=== PATIENT | female | born 1970 | race Caucasian/White ===

== ENCOUNTER 2018-04-03 17:56 | Emergency (ER) | payer MEDICAID, SELFPAY ==
[2018-04-03 17:56] VITALS: BP 130/95; PULSE 97; RESP 20; TEMP 36.2; O2SAT 98; BMI 19.8
--- NOTE | 2018-04-03 18:11 | EKG12_ITS ---
Test Reason : COUGH Blood Pressure : / mmHG Vent. Rate : 090 BPM Atrial Rate : 090 BPM P-R Int : 116 ms QRS Dur : 084 ms QT Int : 356 ms P-R-T Axes : 046 035 043 degrees QTc Int : 435 ms Normal sinus rhythm Normal ECG Confirmed by ROSE HICKMAN, BARNEY ([id number]), scientific publications editor MATEO SANTIAGO ([id number]) on 04/06/2018 1:22:34 PM Referred By: LATRICE Confirmed By:BARNEY ROSE MD
[2018-04-03 18:22] VITALS: O2SAT 100
[2018-04-03 18:25] VITALS: PULSE 82; RESP 10; O2SAT 99
[2018-04-03] MEDS: 0.9% Normal Saline 1,000 ML 999 ML IV (18:30)
[2018-04-03 18:38] LABS: Absolute Lymphocyte Count 3.17 X10^3/ul (0.83-4.51); Absolute Neutrophil Count 6.4 X10^3/uL (2.0-7.7); Basophil# 0.04 X10^3/uL; Basophil% 0.4 % (0-1); Eosinophil# 0.11 X10^3/uL; Hematocrit 39.6 % (37-47); Hemoglobin 13.1 g/dl (12.0-15.0); Lymphocyte # 3.17 X10^3/ul (4.0); Lymphocyte % 29.8 % (19-41); Mean Corp Hgb Conc 33.1 g/gl (32-36); Mean Corpuscular Hgb 30.8 pg (27.0-32.0); Mean Corpuscular Volume 93.2 fL (81-99); Mean Platelet Vol. 9.6 fl (6.2-12.0); Monocyte# 0.91 X10^3/uL; Monocyte% 8.6 % (0-10); Neutrophil # 6.37 X10^3/uL (2.7-7.7); Platelet Count 369 K/mm3 (150-450); RBC Distribution Width CV 12.1 % (11.6-14.6); RBC Distribution Width SD 40.9 fl (35.1-43.9); Red Blood Count 4.25 M/mm3 (4.2-5.4); White Blood Count 10.6 K/mm3 (4.4-11.0)
--- NOTE | 2018-04-03 18:46 | RAD_ITS ---
STUDY: X-RAY CHEST REASON FOR EXAM: Female, 47 years old. Cough TECHNIQUE: Frontal and lateral views of the chest COMPARISON: None. FINDINGS: The lungs are clear. There are no pleural effusions. There is no pneumothorax. The heart is normal in size. The visualized osseous structures are within normal limits. RAD/Chest PA and Lateral IMPRESSION: No acute thoracic pathology. Electronically Signed: Bradford Crowder, at 19:12 EDT Tel , Service support ,
[2018-04-03 18:48] LABS: POSITIVE COUNT NO; POSITIVE DIFFERENTIAL NO; POSITIVE MORPHOLOGY NO
[2018-04-03 18:55] LABS: Anion Gap 9 (5-15); BUN 14 mg/dL (7-18); BUN/Creat Ratio 18.4 RATIO (10-20); Calcium,Total 8.9 mg/dL (8.5-10.1); Chloride 101 mmol/L (98-107); Creatinine, Serum 0.76 mg/dL (0.55-1.02); EST Glomerular Filtration Rate 87 mL/min (>60); Est Glom Filt Rate - Afr Amer 105 mL/min (>60); Estimated Creatinine Clearance 87.02 ml/min; Glucose 86 mg/dL (74-106); Potassium 4.3 mmol/L (3.5-5.1); Sodium Level 138 mmol/L (136-145)
--- NOTE | 2018-04-03 19:37 | ED.VISSUMM ---
- ER Visit Summary Date of Service: 04/03/18 Chief Complaint: Cough History of Present Illness: The patient is a 47 F with no local primary care physician. She reports she has a cough began 3 weeks ago. Is nonproductive. She had a fever to 101.7?. She has sore throat is 4-10 severity. She lost her voice at the same time. She reports that she has had constant chest pain for the past 2 weeks. She describes this as a pressure. It is 7 out of 10 at worst and 4 out of 10 currently. Is worsened with walking. Is relieved with rest. She reports she is moderately short of breath. States this is much worse when she walks. She has been wheezing. Patient reports that she has been seen in the urgent care twice. She is placed on a Ventolin inhaler, 40 g of prednisone a day for the past week, and a Z-Ermias which she is finishing today and has not had any relief. Patient reports that she has a history of lupus and has had a vertebral dissection in 2013. She is also had an [place] which required a cath and angioplasty 2 years ago. Currently she is on Plaquenil and prednisone at baseline. She does not have a local nutrition intern as she just moved back from [place]. Physical Examination: Vitals: Stable. Afebrile. General: Well-nourished and well-developed. Head: Normocephalic atraumatic. Neck: Supple, no lymphadenopathy. No JVD. Nontender. Cardiovascular: Regular rate and rhythm. No murmurs. Respiratory: No respiratory distress. Clear to auscultation bilaterally. Abdominal: Soft, nontender, nondistended, normal bowel sounds. No guarding, rebound, or peritoneal signs. Back: Nontender. Extremities: Nontender, no edema. Skin: Normal color, no rash. Neurologic: Alert and oriented ?3. Cranial nerves II through XII are intact. Normal strength and sensation. Psych: Normal affect. Test Results: EKG is sinus at 90 with no acute changes. Troponins negative. Chem-7 is normal. CBC is normal. Chest x-ray is normal. Emergency Department Course and Treatment: Patient is resting comfortably without complaint. Treatment Plan: The patient will be discharged with instructions to follow-up with Dr. Ariza for further evaluation of possible pulmonary involvement with her lupus. She is also instructed follow-up . Finally she saw Dr. Patel when she did live here and is instructed to follow-up with him in 3-5 days if not improving. Return to the emergency department for any worsening symptoms. Disposition: To home in improved and stable condition. Impression: 1. URI. 2. Systemic lupus erythematosus. This note was generated with [employer] dictation software. It may contain incorrect words, spelling, and punctuation that were not noted in review of the chart prior to signing ED Disposition - Plan for ED Patient: Disposition: Home or Assisted Living Chief Complaint: Cough Instructions: ED Upper Resp Infec No Abx Tx Referrals: Raghavendra Patel MD [NON-STAFF] - 1 Week if not improving Elroy Ariza MD [STAFF PHYSICIAN] - As Needed Selene Garcia MD [STAFF PHYSICIAN] - As soon as possible
--- NOTE | 2018-04-03 19:49 | ED.DCSUM_ITS ---
- ER Visit Summary Date of Service: 04/03/18 Chief Complaint: Cough History of Present Illness: The patient is a 47 F with no local primary care physician. She reports she has a cough began 3 weeks ago. Is nonproductive. She had a fever to 101.7?. She has sore throat is 4-10 severity. She lost her voice at the same time. She reports that she has had constant chest pain for the past 2 weeks. She describes this as a pressure. It is 7 out of 10 at worst and 4 out of 10 currently. Is worsened with walking. Is relieved with rest. She reports she is moderately short of breath. States this is much worse when she walks. She has been wheezing. Patient reports that she has been seen in the urgent care twice. She is placed on a Ventolin inhaler, 40 g of prednisone a day for the past week, and a Z-Ermias which she is finishing today and has not had any relief. Patient reports that she has a history of lupus and has had a vertebral dissection in 2013. She is also had an CT which required a cath and angioplasty 2 years ago. Currently she is on Plaquenil and prednisone at baseline. She does not have a local facility practice specialist as she just moved back from [place]. Physical Examination: Vitals: Stable. Afebrile. General: Well-nourished and well-developed. Head: Normocephalic atraumatic. Neck: Supple, no lymphadenopathy. No JVD. Nontender. Cardiovascular: Regular rate and rhythm. No murmurs. Respiratory: No respiratory distress. Clear to auscultation bilaterally. Abdominal: Soft, nontender, nondistended, normal bowel sounds. No guarding, rebound, or peritoneal signs. Back: Nontender. Extremities: Nontender, no edema. Skin: Normal color, no rash. Neurologic: Alert and oriented ?3. Cranial nerves II through XII are intact. Normal strength and sensation. Psych: Normal affect. Test Results: EKG is sinus at 90 with no acute changes. Troponins negative. Chem-7 is normal. CBC is normal. Chest x-ray is normal. Emergency Department Course and Treatment: Patient is resting comfortably without complaint. Treatment Plan: The patient will be discharged with instructions to follow-up with Dr. Ariza for further evaluation of possible pulmonary involvement with her lupus. She is also instructed follow-up . Finally she saw Dr. Patel when she did live here and is instructed to follow-up with him in 3-5 days if not improving. Return to the emergency department for any worsening symptoms. Disposition: To home in improved and stable condition. Impression: 1. URI. 2. Systemic lupus erythematosus. This note was generated with [employer] dictation software. It may contain incorrect words, spelling, and punctuation that were not noted in review of the chart prior to signing ED Disposition - Plan for ED Patient: Disposition: Home or Assisted Living Chief Complaint: Cough Instructions: ED Upper Resp Infec No Abx Tx Referrals: Raghavendra Patel MD [NON-STAFF] - 1 Week if not improving Elroy Ariza MD [STAFF PHYSICIAN] - As Needed Selene Garcia MD [STAFF PHYSICIAN] - As soon as possible
[2018-04-03 20:36] VITALS: BP 131/89; PULSE 97; RESP 23; O2SAT 97
== END 2018-04-03 20:38 | disposition home or self-care (01) ==
PROVIDERS: Emergency Provider Emergency Medicine
DX: J06.9 Acute upper respiratory infection, unspecified (principal); M32.9 Systemic lupus erythematosus, unspecified; I25.2 Old myocardial infarction
CPT/HCPCS: 71046; 80048; 84484; 85025; 93005; 99285; J7030

== ENCOUNTER 2018-04-13 06:52 | Emergency (ER) | payer MEDICAID, SELFPAY ==
[2018-04-13 06:53] VITALS: BP 134/96; PULSE 98; RESP 20; TEMP 36.9; O2SAT 98
--- NOTE | 2018-04-13 07:04 | CT_ITS ---
STUDY: CTA NECK WITH CONTRAST REASON FOR EXAM: Female, 47 years old. Severe headaches and neck pain. History of vertebral artery dissection. The patient also has a history of lupus. RADIATION DOSAGE (If Supplied By Facility): CTDIvol = ( 27.9 ) mGy, DLP = ( 1445.04 ) mGycm TECHNIQUE: CT angiography with multi-detector data acquisition was performed from the aortic arch to the skull base following intravenous administration of 100 ml of Isovue 370 contrast. MIP images were reconstructed from the axial data set. Post-processing of the angiographic images was performed, with multiplanar reformation and 3D reconstruction. Individualized dose optimization techniques were used for this CT. COMPARISON: None. FINDINGS: AORTIC ARCH: Normal visualized aortic arch. Normal origins of the brachiocephalic, left common carotid, and left subclavian arteries. RIGHT CAROTID ARTERIES: Normal right common carotid artery (CCA). Normal right common carotid bulb. Normal origin of the right internal carotid (ICA) artery without a hemodynamically significant stenosis. Normal visualized cervical portion of the right internal carotid artery. Normal origin of the right external carotid artery (ECA). LEFT CAROTID ARTERIES: Normal left common carotid artery (CCA). Normal left common carotid bulb. Normal origin of the left internal carotid (ICA) artery without a hemodynamically significant stenosis. Normal visualized cervical portion of the left internal carotid artery. Normal origin of the left external carotid artery (ECA). VERTEBRAL ARTERIES: The left vertebral artery is slightly larger than the right vertebral artery. CT/CTA Neck W/WO Contrast IMPRESSION: Normal bilateral cervical carotid and vertebral arteries. Electronically Signed: Perry Sorenson MD at 8:26 EDT Tel [phone], Service support ,
--- NOTE | 2018-04-13 07:04 | CT_ITS ---
STUDY: CTA OF THE BRAIN REASON FOR EXAM: Female, 47 years old. Severe headaches and cervical pain. History of bilateral vertebral artery dissection. The patient has a history of lupus. RADIATION DOSAGE (If Supplied By Facility): CTDIvol = ( 27.9 ) mGy, DLP = ( 1445.04 ) mGycm TECHNIQUE: CT angiography was performed with a multi-detector CT scanner. Data acquisition was obtained from the skull base through the vertex following intravenous administration of 100 ml of Isovue-370. MIP images were reconstructed from the axial data set. Post-processing of the angiographic images was performed, with multiplanar reformation and 3D reconstruction. Individualized dose optimization techniques were used for this CT. COMPARISON: None. FINDINGS: Normal bilateral petrous carotid arteries. Normal right cavernous carotid artery with a normal supraclinoid bifurcation. Normal left cavernous carotid artery with a normal supraclinoid bifurcation. Normal right A1 segments of the anterior cerebral artery. Normal left A1 segments of the anterior cerebral artery. Normal intact anterior communicating artery (ACOM). Normal bilateral A2 segments of the anterior cerebral arteries. Normal right M1 and M2 segments of the middle cerebral arteries, with a normal M1 bifurcation. Normal left M1 and M2 segments of the middle cerebral arteries, with a normal M1 bifurcation. Normal right posterior communicating artery (PCOM). Normal left posterior communicating artery (PCOM). Normal bilateral vertebral arteries. Normal basilar artery with a normal basilar bifurcation. The visualized bilateral superior cerebellar (SCA) arteries are normal. Normal bilateral P1, P2 and visualized P3 segments of the posterior cerebral arteries. There is no demonstrated aneurysm of the [place]. There is no demonstrated abnormality of the visualized brain. CT/CTA Head W/WO Contrast IMPRESSION: Normal [place] without a demonstrated aneurysm or hemodynamically significant stenosis. Electronically Signed: Perry Sorenson MD at 8:24 EDT Tel [phone], Service support ,
--- NOTE | 2018-04-13 07:24 | ED.VISSUMM ---
- ER Visit Summary Date of Service: 04/13/18 Chief Complaint: Neck pain and headache History of Present Illness: The patient is a 47 F who sees a primary care physician at [facility]. She has a history of lupus with prior vertebral dissections and [place] with angioplasty. Patient reports that 3 days ago she had the onset of a pain in the left side of her neck and left head that is similar to when she had a vertebral dissection. She describes it as a sharp pains 10 at 10 at worst 9 out of 10 currently. Is worsened by movement or coughing. Is relieved by nothing. She has had nausea without vomiting. She denies any photophobia. She reports that she has tingling in the left side of her jaw only. She denies any numbness or weakness in her extremities. She does report that she feels slightly off balance. She denies any vertigo. Patient reports that she has had a cough for approximately a month that is actually improving. It is nonproductive. She denies any fever, chills, chest pain, or shortness of breath. Physical Examination: Vitals: Stable. Afebrile. General: Well-nourished and well-developed. Head: Normocephalic atraumatic. Neck: Supple, no lymphadenopathy. No JVD. Nontender. Cardiovascular: Regular rate and rhythm. No murmurs. Respiratory: No respiratory distress. Clear to auscultation bilaterally. Abdominal: Soft, nontender, nondistended, normal bowel sounds. No guarding, rebound, or peritoneal signs. Back: Nontender. Extremities: Nontender, no edema. Skin: Normal color, no rash. Neurologic: Alert and oriented ?3. Cranial nerves II through XII are intact. Normal strength and sensation. Psych: Normal affect. Test Results: CT head is normal. CTA head shows normal [place]. CTA of the neck shows normal carotids and vertebral arteries bilaterally. CBC is normal. Chem-7 is more for chloride 108, BUN of 5, glucose 115. Coags are normal. CSF glucose is 58 and protein is 42. No red blood cells. 2 white blood cells. Emergency Department Course and Treatment: Patient had an IV placed. She was given a dose of morphine and Zofran IV. She had no relief of her pain with this. She was then given Toradol, Compazine, and Benadryl IV. I had a prolonged discussion with her about the possible serious causes of headaches and the possibility of a lumbar puncture. She does want this performed. She was consented and all questions were answered. Patient has had significant improvement after Toradol, Compazine, and Benadryl. She is resting comfortably and would like to go home. She was given a dose of dexamethasone IV in attempt to prevent a rebound headache. Treatment Plan: Patient will be discharged with instructions use Tylenol and/or ibuprofen. She is also given a prescription for Compazine. Instructed to follow-up with her primary care physician 1 to days if not improving. Return to the emergency department for any worsening symptoms. Disposition: To home in improved and stable condition. Impression: 1. Cephalgia. 2. Neck pain, uncertain cause. 3. Lumbar puncture by ED physician. Procedure note: The back was cleansed with Betadine. It was then anesthetized with 1% lidocaine without epinephrine. With the patient in a sitting position the L3-L4 disc space was entered on the first attempt. 4 mL of clear colorless fluid was obtained. The patient tolerated it well. This note was generated with [employer] dictation software. It may contain incorrect words, spelling, and punctuation that were not noted in review of the chart prior to signing ED Disposition - Plan for ED Patient: Chief Complaint: Headache Instructions: ED Cephalgia Unspecified Prescriptions: Prochlorperazine Maleate [Compazine] 5 mg PO Q6H PRN PRN #20 tablet PRN Reason: Headache Referrals: Doctor,Your [STAFF PHYSICIAN] - 1-2 Days if not improving
[2018-04-13] MEDS: 0.9% Normal Saline 1,000 ML 1000 ML IV (07:26)
[2018-04-13] MEDS: Ondansetron 4 MG/2 ML Vial IV (07:26)
[2018-04-13] MEDS: Morphine 4 MG/ML Syringe IV ×2 (07:27→08:12)
--- NOTE | 2018-04-13 07:28 | ED.DCSUM_ITS ---
- ER Visit Summary Date of Service: 04/13/18 Chief Complaint: Neck pain and headache History of Present Illness: The patient is a 47 F who sees a primary care physician at [facility]. She has a history of lupus with prior vertebral dissections and [place] with angioplasty. Patient reports that 3 days ago she had the onset of a pain in the left side of her neck and left head that is similar to when she had a vertebral dissection. She describes it as a sharp pains 10 at 10 at worst 9 out of 10 currently. Is worsened by movement or coughing. Is relieved by nothing. She has had nausea without vomiting. She denies any photophobia. She reports that she has tingling in the left side of her jaw only. She denies any numbness or weakness in her extremities. She does report that she feels slightly off balance. She denies any vertigo. Patient reports that she has had a cough for approximately a month that is actually improving. It is nonproductive. She denies any fever, chills, chest pain, or shortness of breath. Physical Examination: Vitals: Stable. Afebrile. General: Well-nourished and well-developed. Head: Normocephalic atraumatic. Neck: Supple, no lymphadenopathy. No JVD. Nontender. Cardiovascular: Regular rate and rhythm. No murmurs. Respiratory: No respiratory distress. Clear to auscultation bilaterally. Abdominal: Soft, nontender, nondistended, normal bowel sounds. No guarding, rebound, or peritoneal signs. Back: Nontender. Extremities: Nontender, no edema. Skin: Normal color, no rash. Neurologic: Alert and oriented ?3. Cranial nerves II through XII are intact. Normal strength and sensation. Psych: Normal affect. Test Results: CT head is normal. CTA head shows normal [place]. CTA of the neck shows normal carotids and vertebral arteries bilaterally. CBC is normal. Chem-7 is more for chloride 108, BUN of 5, glucose 115. Coags are normal. CSF glucose is 58 and protein is 42. No red blood cells. 2 white blood cells. Emergency Department Course and Treatment: Patient had an IV placed. She was given a dose of morphine and Zofran IV. She had no relief of her pain with this. She was then given Toradol, Compazine, and Benadryl IV. I had a prolonged discussion with her about the possible serious causes of headaches and the possibility of a lumbar puncture. She does want this performed. She was consented and all questions were answered. Patient has had significant improvement after Toradol, Compazine, and Benadryl. She is resting comfortably and would like to go home. She was given a dose of dexamethasone IV in attempt to prevent a rebound headache. Treatment Plan: Patient will be discharged with instructions use Tylenol and/or ibuprofen. She is also given a prescription for Compazine. Instructed to follow-up with her primary care physician 1 to days if not improving. Return to the emergency department for any worsening symptoms. Disposition: To home in improved and stable condition. Impression: 1. Cephalgia. 2. Neck pain, uncertain cause. 3. Lumbar puncture by ED physician. Procedure note: The back was cleansed with Betadine. It was then anesthetized with 1% lidocaine without epinephrine. With the patient in a sitting position the L3-L4 disc space was entered on the first attempt. 4 mL of clear colorless fluid was obtained. The patient tolerated it well. This note was generated with [employer] dictation software. It may contain incorrect words, spelling, and punctuation that were not noted in review of the chart prior to signing ED Disposition - Plan for ED Patient: Chief Complaint: Headache Instructions: ED Cephalgia Unspecified Prescriptions: Prochlorperazine Maleate [Compazine] 5 mg PO Q6H PRN PRN #20 tablet PRN Reason: Headache Referrals: Doctor,Your [STAFF PHYSICIAN] - 1-2 Days if not improving
[2018-04-13 07:36] LABS: Absolute Lymphocyte Count 2.24 X10^3/ul (0.83-4.51); Absolute Neutrophil Count 5.2 X10^3/uL (2.0-7.7); Basophil# 0.07 X10^3/uL; Basophil% 0.8 % (0-1); Eosinophil# 0.14 X10^3/uL; Eosinophils% 1.6 % (0-5); Hemoglobin 13.8 g/dl (12.0-15.0); Lymphocyte # 2.24 X10^3/ul (4.0); Lymphocyte % 26.3 % (19-41); Mean Corp Hgb Conc 33.7 g/gl (32-36); Mean Corpuscular Hgb 30.8 pg (27.0-32.0); Mean Corpuscular Volume 91.5 fL (81-99); Mean Platelet Vol. 9.3 fl (6.2-12.0); Monocyte# 0.84 X10^3/uL; Monocyte% 9.8 % (0-10); Neutrophil # 5.23 X10^3/uL (2.7-7.7); Neutrophil % 61.4 % (47-70); Platelet Count 379 K/mm3 (150-450); RBC Distribution Width SD 40.1 fl (35.1-43.9); Red Blood Count 4.48 M/mm3 (4.2-5.4); White Blood Count 8.5 K/mm3 (4.4-11.0)
[2018-04-13 07:37] LABS: POSITIVE COUNT NO; POSITIVE DIFFERENTIAL NO; POSITIVE MORPHOLOGY NO
[2018-04-13 07:40] LABS: Prothrombin Time (Protime)PT. 13.5 SECONDS (11.7-14.9)
[2018-04-13 07:41] LABS: Partial Thromboplast Time 32.6 Seconds (24.1-36.2)
[2018-04-13 07:44] LABS: Anion Gap 8 (5-15); BUN 5 mg/dL (7-18); Calcium,Total 8.5 mg/dL (8.5-10.1); Chloride 108 mmol/L (98-107); Creatinine, Serum 0.84 mg/dL (0.55-1.02); EST Glomerular Filtration Rate 78 mL/min (>60); Est Glom Filt Rate - Afr Amer 94 mL/min (>60); Estimated Creatinine Clearance 79.58 ml/min; Glucose 115 mg/dL (74-106); Potassium 5.1 mmol/L (3.5-5.1); Sodium Level 139 mmol/L (136-145)
[2018-04-13] MEDS: proCHLORPERazine 10 MG/2 ML Vial IV (09:19)
[2018-04-13] MEDS: Ketorolac 30 MG/ML Syringe IV (09:19)
[2018-04-13] MEDS: DiphenhydrAMINE 50 MG/ML Syringe IV (09:19)
[2018-04-13 09:46] VITALS: BP 100/72; PULSE 78; RESP 14; O2SAT 98
[2018-04-13] MEDS: 0.9% Normal Saline 1,000 ML 999 ML IV (09:56)
[2018-04-13 10:11] LABS: Body Fluid Mononuclear WBC # 0.002 10^3/uL; Total Cell Count CSF 0.002 10^3/uL (0.000-0.000); White Count, CSF 0.002 10^3/uL (0.000-0.000)
[2018-04-13 10:16] LABS: Glucose Spinal Fluid 58 mg/dL (40-75)
[2018-04-13 10:17] LABS: Auto B Fluid Analyzer BKGD Ct COUNTS W/IN LIMITS (W/IN LIMITS)
[2018-04-13 10:18] LABS: Appearance CSF (character) CLEAR (Clear); CSF Color COLORLESS (Colorless); RBC Count, Spinal Fluid 0 /mm-3 (None seen); Tested Tube # 1
[2018-04-13 10:21] LABS: Body Fluid QC Type(s) BF1Q
[2018-04-13 10:42] VITALS: BP 93/72; PULSE 71; RESP 16; O2SAT 100
[2018-04-14 13:10] LABS: Pathologist Review Reviewed
== END 2018-04-13 11:09 | disposition home or self-care (01) ==
LOC: ED 07:17
PROVIDERS: Emergency Provider Emergency Medicine
DX: R51 Headache (principal); M54.2 Cervicalgia; R05 Cough; R11.0 Nausea; I25.2 Old myocardial infarction; M32.9 Systemic lupus erythematosus, unspecified
CPT/HCPCS: 62270; 70496; 70498; 80048; 82945; 84157; 85025; 85610; 85730; 87070; 87205; 89050; 89051; 96361; 96374; 96375; 99285; J7030; Q9967; A4216; J2405

== ENCOUNTER 2018-04-16 12:31 | Emergency (ER) | payer MEDICAID, SELFPAY ==
[2018-04-16 12:32] VITALS: BP 98/76; PULSE 88; RESP 16; TEMP 36.9; O2SAT 98; BMI 19.8
[2018-04-16] MEDS: Morphine 2 MG/ML Syringe IV (13:18)
[2018-04-16] MEDS: Ondansetron 4 MG/2 ML Vial IV (13:18)
[2018-04-16] MEDS: Ketorolac 30 MG/ML Syringe IV (13:18)
[2018-04-16 13:35] LABS: Absolute Lymphocyte Count 2.08 X10^3/ul (0.83-4.51); Absolute Neutrophil Count 4.8 X10^3/uL (2.0-7.7); Basophil# 0.02 X10^3/uL; Basophil% 0.3 % (0-1); Eosinophil# 0.07 X10^3/uL; Eosinophils% 0.9 % (0-5); Hematocrit 36.1 % (37-47); Hemoglobin 12.3 g/dl (12.0-15.0); Lymphocyte # 2.08 X10^3/ul (4.0); Lymphocyte % 27.7 % (19-41); Mean Corp Hgb Conc 34.1 g/gl (32-36); Mean Corpuscular Hgb 31.8 pg (27.0-32.0); Mean Corpuscular Volume 93.3 fL (81-99); Mean Platelet Vol. 9.4 fl (6.2-12.0); Monocyte# 0.52 X10^3/uL; Monocyte% 6.9 % (0-10); Neutrophil % 64.1 % (47-70); POSITIVE COUNT NO; POSITIVE DIFFERENTIAL NO; POSITIVE MORPHOLOGY NO; Platelet Count 331 K/mm3 (150-450); RBC Distribution Width CV 11.5 % (11.6-14.6); RBC Distribution Width SD 38.9 fl (35.1-43.9); Red Blood Count 3.87 M/mm3 (4.2-5.4); White Blood Count 7.5 K/mm3 (4.4-11.0)
[2018-04-16 13:36] LABS: Erythrocyte Sedimentation Rate 3 mm/hr (0-20)
[2018-04-16 13:46] LABS: Anion Gap 8 (5-15); BUN 9 mg/dL (7-18); Calcium,Total 8.8 mg/dL (8.5-10.1); Chloride 107 mmol/L (98-107); Creatinine, Serum 0.75 mg/dL (0.55-1.02); EST Glomerular Filtration Rate 88 mL/min (>60); Est Glom Filt Rate - Afr Amer 107 mL/min (>60); Estimated Creatinine Clearance 88.53 ml/min; Glucose 86 mg/dL (74-106); Potassium 3.7 mmol/L (3.5-5.1); Sodium Level 144 mmol/L (136-145)
[2018-04-16 15:38] VITALS: BP 134/85; PULSE 84; RESP 14; O2SAT 99
--- NOTE | 2018-04-16 16:36 | ED.VISSUMM ---
- ER Visit Summary Date of Service: 04/16/18 Chief Complaint: Unilateral left-sided headache with facial numbness History of Present Illness: The patient is a 47 F who was seen on April 13 for severe headache and neck pain. 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 She was seen on April 03 for respiratory symptoms and had a negative workup at that time. Since her April 13 visit she developed painful vaginal rash which was diagnosed as primary genital herpes. She states her and her recently . She has moved back to [place] from [place]. She did have a spinal tap on April 13 and there was no evidence of infection. Patient states the head pain is worse than labor pain and worsen the pain she had when she had her vertebral artery dissection. She complains of binocular blurred vision with no double vision or loss of vision partial or complete. She denies rhinorrhea, nasal drainage, or nasal congestion. She denies sore throat. She states movement of her head causes her to have increased neck pain. She denies any cardiac or respiratory symptoms. She denies nausea, vomiting diarrhea. She denies dysuria, frequency, urgency or hematuria. She does complain of paresthesia left side of the face with no complaint of paresthesia, anesthesia motors left upper or lower or right upper or lower extremity. She denies problems with balance or walking. She has not noted any facial or neck rash. Physical Examination: Patient appears slightly uncomfortable. Vital signs are normal. Head is atraumatic normocephalic. Pupils are equal round reactive. Extraocular muscles are intact. TMs are pearly white with landmarks noted. Nares patent with no drainage. Posterior pharynx without erythema or exudate. Uvula is midline. There is no dysphonia or dysphasia. Trachea is midline. There is no stridor with auscultation of the neck. She complains of pain with rotation of her head to the right and left and has pain with extension and flexion. Heart is regular without murmur, gallop or rub. S1 and S2 are normal. Lungs are clear to auscultation with good movement of air bilaterally. Abdomen is soft nontender. Patient is alert and oriented ?3. Motor is 5 over 5. Sensory is intact. DTRs are symmetric with no clonus or Babinski sign. Cranial 2 through 12 are intact. Cerebellar testing is normal. Test Results: CBC, BMP and ESR are normal. Emergency Department Course and Treatment: Since there is a history of lupus and her past 2 prior visits and ESR was not obtained one was obtained today. She initially was medicated with morphine, Toradol IV push and Zofran. She reported no improvement. She then was treated with IV Depakote. She reports no significant improvement. She is requesting prescription for Toradol since that does not make her drowsy since she has triplets at home. Treatment Plan: Referral to local physician since she does not have one and prescription for Toradol. She was referred to Dr. Aravind Laws. Disposition: Discharged home with mother and her 3 daughters Impression: Unilateral left-sided headache and neck pain of unknown etiology History of SLE History of recent diagnosis of HSV History of vertebral artery dissection This note was generated with [employer] dictation software. It may contain incorrect words, spelling, and punctuation that were not noted in review of the chart prior to signing ED Disposition - Plan for ED Patient: Disposition: Home or Assisted Living Chief Complaint: Neuro S/Sx Instructions: ED Cephalgia Unspecified Prescriptions: Ketorolac [Toradol] 10 mg PO Q6H #20 tab Referrals: Care Physician,No Primary [Primary Care Provider] - Aroldo Laws MD [STAFF PHYSICIAN] - 3-5 Days if not improving Additional Instructions: Your prescription was electronically transmitted [facility] that you designated as your pharmacy of choice.
[2018-04-16 16:57] VITALS: PULSE 78; RESP 16; O2SAT 98
== END 2018-04-16 16:58 | disposition home or self-care (01) ==
PROVIDERS: Emergency Provider Emergency Medicine
DX: R51 Headache (principal); M54.2 Cervicalgia; M32.9 Systemic lupus erythematosus, unspecified; R20.2 Paresthesia of skin
CPT/HCPCS: 80048; 85025; 85652; 96365; 96375; 99284; J7030; J2405

== ENCOUNTER 2018-05-01 22:47 | Emergency (ER) | payer MEDICAID, SELFPAY ==
[2018-05-01 22:48] VITALS: BP 161/86; PULSE 100; RESP 18; TEMP 37.3; O2SAT 99; BMI 18.8
--- NOTE | 2018-05-01 23:21 | ED.VISSUMM ---
- ER Visit Summary Date of Service: 05/01/18 Chief Complaint: Neck pain History of Present Illness: The patient is a 47 F with neck pain that was diagnosed as some DJD on a recent MRI. Apparently she was seen at [facility], had seen pain management there and now she is discharged home but her pain got worse today. Physical Examination: She has tenderness over the C-spine and paraspinal muscles. She has normal strength and sensation of the arms and legs. Normal neurological exam otherwise Emergency Department Course and Treatment: [Patient was given oxycodone, Toradol and Norflex IM. I will give her Flexeril for home. She is to follow-up with [facility] and pain management Disposition: Discharge stable condition Impression: [Neck pain] This note was generated with [employer] dictation software. It may contain incorrect words, spelling, and punctuation that were not noted in review of the chart prior to signing ED Disposition - Plan for ED Patient: Disposition: Home or Assisted Living Chief Complaint: Other, Pain/Inj Instructions: Understanding Neck Problems Prescriptions: Cyclobenzaprine [Flexeril] 10 mg PO TID PRN #20 tab PRN Reason: Muscle Spasm Referrals: Care Physician,No Primary [Primary Care Provider] - 3-5 Days
--- NOTE | 2018-05-01 23:24 | ED.DCSUM_ITS ---
- ER Visit Summary Date of Service: 05/01/18 Chief Complaint: Neck pain History of Present Illness: The patient is a 47 F with neck pain that was diagnosed as some DJD on a recent MRI. Apparently she was seen at [facility], had seen pain management there and now she is discharged home but her pain got worse today. Physical Examination: She has tenderness over the C-spine and paraspinal muscles. She has normal strength and sensation of the arms and legs. Normal neurological exam otherwise Emergency Department Course and Treatment: [Patient was given oxycodone, Toradol and Norflex IM. I will give her Flexeril for home. She is to follow- up with [facility] and pain management Disposition: Discharge stable condition Impression: [Neck pain] This note was generated with [employer] dictation software. It may contain incorrect words, spelling, and punctuation that were not noted in review of the chart prior to signing ED Disposition - Plan for ED Patient: Disposition: Home or Assisted Living Chief Complaint: Other, Pain/Inj Instructions: Understanding Neck Problems Prescriptions: Cyclobenzaprine [Flexeril] 10 mg PO TID PRN #20 tab PRN Reason: Muscle Spasm Referrals: Care Physician,No Primary [Primary Care Provider] - 3-5 Days
[2018-05-01] MEDS: Orphenadrine 60 MG/2 ML Ampul IM (23:36)
[2018-05-01] MEDS: Ketorolac 30 MG/ML Syringe IM (23:36)
[2018-05-01] MEDS: oxyCODONE 5 MG Tablet PO (23:36)
[2018-05-02] MEDS: Morphine 4 MG/ML Syringe IM (00:21)
[2018-05-02 03:00] VITALS: RESP 16
[2018-05-02] MEDS: Morphine 4 MG/ML Syringe IV (03:30)
[2018-05-02] MEDS: Ketorolac 15 MG/ML Vial IV (03:31)
[2018-05-02] MEDS: Ondansetron 4 MG/2 ML Vial IV (03:31)
[2018-05-02] MEDS: diazePAM 5 MG Tablet PO (03:45)
--- NOTE | 2018-05-02 05:02 | ED.DCSUM_ITS ---
- ER Visit Summary Date of Service: 05/02/18 Chief Complaint: [] History of Present Illness: The patient is a 47 F [] Physical Examination: [] Test Results: [] Emergency Department Course and Treatment: [] Treatment Plan: [] Disposition: [] Impression: [] This note was generated with [employer] dictation software. It may contain incorrect words, spelling, and punctuation that were not noted in review of the chart prior to signing ED Disposition - Plan for ED Patient: Disposition: Home or Assisted Living Chief Complaint: Other, Pain/Inj Instructions: Understanding Neck Problems Prescriptions: Ketorolac [Toradol] 10 mg PO Q6H #20 tab Cyclobenzaprine [Flexeril] 10 mg PO TID PRN #20 tab PRN Reason: Muscle Spasm Referrals: Care Physician,No Primary [Primary Care Provider] - 3-5 Days
[2018-05-02 05:06] VITALS: PULSE 76; RESP 16; O2SAT 98
== END 2018-05-02 05:07 | disposition home or self-care (01) ==
LOC: ED 23:27
PROVIDERS: Emergency Provider Emergency Medicine
DX: M54.2 Cervicalgia (principal)
CPT/HCPCS: 99283; A4216; J2405

== ENCOUNTER 2018-05-19 17:20 | Emergency (ER) | payer MEDICAID, SELFPAY ==
[2018-05-19 17:21] VITALS: BP 144/79; PULSE 141; RESP 19; TEMP 36.9; O2SAT 97; BMI 19.8
--- NOTE | 2018-05-19 17:56 | ED.VISSUMM ---
- ER Visit Summary Date of Service: 05/19/18 Chief Complaint: Alcohol intoxication History of Present Illness: The patient is a 48 F presents to the emergency department outcome intoxication. The patient has a history of prior alcohol abuse. She states that she has been sober for 6 months. She states she started drinking over the past 24 hours. She frankly denies being suicidal or homicidal. She states she just did not know what to do so she came to the emergency department. She denies any history of alcohol withdrawal. She states she has been under a significant amount of stress at home. She states that she lost custody of her children because of her drinking. She denies any other symptoms. Physical Examination: Vital signs reviewed General: Well-nourished, well-developed Head: Normocephalic, atraumatic Eyes: Pupils equal and reactive, extraocular muscles intact Neck, supple, no lymphadenopathy Heart: Regular rate and rhythm Respiratory: No distress, clear bilaterally Abdomen: Soft, nontender, nondistended, no peritoneal signs Back: Nontender Extremities: Nontender, no edema, no cords Skin: Normal color no rash Neuro: Alert and oriented, no focal or lateralizing deficits Test Results: [] Emergency Department Course and Treatment: The patient is not suicidal or homicidal. Her only current complaint is of anxiety because she feels like she is going to drink again. She is no evidence of acute withdrawal. She has been sober for 6 months and is only had alcohol for the past 24 hours. IV was established. Alcohol level is elevated. The patient was observed. On reevaluation, she is resting comfortably. Her mother is at the bedside who has agreed to take her home. I will give the patient outpatient counseling follow-up. I will also prescribe her Vistaril to help with her anxiety. Again, she is not suicidal. She is not homicidal. She has no thoughts of self-harm. She is only been using alcohol for 24 hours. I do feel that she is safe for outpatient therapy. Treatment Plan: [] Disposition: Discharge Impression: 1. Alcohol abuse This note was generated with hhgreggation software. It may contain incorrect words, spelling, and punctuation that were not noted in review of the chart prior to signing ED Disposition - Plan for ED Patient: Disposition: Home or Assisted Living Chief Complaint: Substance Abuse Instructions: ED Alcohol Abuse Prescriptions: hydrOXYzine pamoate capsule [Vistaril] 50 mg PO TID PRN PRN #30 cap PRN Reason: Anxiety Referrals: Counseling,Center [GROUP OF PHYSICIANS] -
[2018-05-19 18:02] LABS: Absolute Lymphocyte Count 2.92 X10^3/ul (0.83-4.51); Absolute Neutrophil Count 5.1 X10^3/uL (2.0-7.7); Basophil# 0.05 X10^3/uL; Basophil% 0.5 % (0-1); Eosinophil# 0.02 X10^3/uL; Eosinophils% 0.2 % (0-5); Hemoglobin 14.6 g/dl (12.0-15.0); Lymphocyte # 2.92 X10^3/ul (4.0); Lymphocyte % 31.2 % (19-41); Mean Corp Hgb Conc 33.2 g/gl (32-36); Mean Corpuscular Hgb 30.6 pg (27.0-32.0); Mean Corpuscular Volume 92.2 fL (81-99); Mean Platelet Vol. 9.4 fl (6.2-12.0); Monocyte# 1.29 X10^3/uL; Monocyte% 13.8 % (0-10); Neutrophil # 5.07 X10^3/uL (2.7-7.7); Neutrophil % 54.2 % (47-70); Platelet Count 355 K/mm3 (150-450); RBC Distribution Width CV 13.9 % (11.6-14.6); RBC Distribution Width SD 46.6 fl (35.1-43.9); Red Blood Count 4.77 M/mm3 (4.2-5.4); White Blood Count 9.4 K/mm3 (4.4-11.0)
[2018-05-19 18:09] LABS: POSITIVE COUNT NO; POSITIVE DIFFERENTIAL NO; POSITIVE MORPHOLOGY NO
[2018-05-19 18:19] LABS: ALB/GLOB Ratio 0.9 RATIO (0.9-2.4); AST(SGOT) 27 U/L (15-37); Alanine Aminotransfer ALT/SGPT 22 U/L (13-56); Alkaline Phosphatase 68 U/L (45-117); Anion Gap 13 (5-15); BUN 9 mg/dL (7-18); Calcium,Total 9.1 mg/dL (8.5-10.1); Chloride 106 mmol/L (98-107); Creatinine, Serum 0.82 mg/dL (0.55-1.02); EST Glomerular Filtration Rate 80 mL/min (>60); Est Glom Filt Rate - Afr Amer 96 mL/min (>60); Globulin 4.3 g/dL (2.2-4.2); Glucose 76 mg/dL (74-106); Protein, Total 8.3 g/dL (6.4-8.2); Sodium Level 141 mmol/L (136-145)
[2018-05-19 18:50] LABS: Internal QC Validated? YES +Cl - CLEAR BKGD; Pregnancy, Urine Negative Negative
[2018-05-19 19:25] LABS: Amphetamine Urine VISTA NEGATIVE (<1000 ng/mL); Barbiturate Urine VISTA NEGATIVE (< 200 ng/mL); Benzodiazepine Urine VISTA NEGATIVE (< 200 ng/mL); Cocaine Urine VISTA NEGATIVE (< 300 ng/mL); Ecstacy Urine VISTA NEGATIVE (< 500 ng/mL); Methadone Urine VISTA NEGATIVE (< 300 ng/mL); PCP Urine VISTA NEGATIVE (< 25 ng/mL); THC Urine VISTA NEGATIVE (< 50 ng/mL); Vista UDS pH Range 5
[2018-05-19 19:40] VITALS: RESP 18; O2SAT 98
[2018-05-19] MEDS: LORazepam 1 MG Tablet PO (20:14)
[2018-05-19 20:25] VITALS: PULSE 80; RESP 18; O2SAT 98
== END 2018-05-19 20:26 | disposition home or self-care (01) ==
PROVIDERS: Emergency Provider Emergency Medicine
DX: F10.229 Alcohol dependence with intoxication, unspecified (principal); Y90.9 Presence of alcohol in blood, level not specified
CPT/HCPCS: 80053; 80307; 80320; 81025; 85025; 99284; A4216; G0480

== ENCOUNTER 2018-05-20 09:42 | Emergency (ER) | payer MEDICAID, SELFPAY ==
[2018-05-20 09:42] VITALS: BP 119/84; PULSE 94; RESP 16; TEMP 36.7; O2SAT 100; BMI 18.8
--- NOTE | 2018-05-20 10:07 | ED.VISSUMM ---
- ER Visit Summary Date of Service: 05/20/18 Chief Complaint: Anxiety History of Present Illness: The patient is a 48 F with history of alcoholism. Patient has been sober for 6+ months. She started drinking again on the . She states been drinking cheap vodka. Patient is here requesting inpatient treatment to stop drinking. She denies prior seizures from withdrawal. She states her ex- is temporary custody of her children secondary to her prior alcoholism this also causes increased stress. Past history is also significant for fibromyalgia and lupus. Patient was seen in the ER last night for the same. She was prescribed Vistaril to help with anxiety but patient has not yet filled this prescription. She does admit that she has been drinking since she left the hospital last night. Physical Examination: Vital signs are unremarkable. Patient is lying in bed. She is anxious. Head neck examination is unremarkable. Heart is regular rate and rhythm. Lung sounds are clear. Abdomen is soft and nontender. Hypoactive bowel sounds are noted. Neuro exam reveals she is alert and oriented. She does appear anxious. No tremors are noted at this time. Test Results: CBC and chemistry studies are unremarkable. LFTs normal. EtOH is 280. Tox screen is negative. Patient had a negative test yesterday. Emergency Department Course and Treatment: Patient was given 1 mg of IV Ativan. On repeat evaluation she appears to be resting calmly, but heart rate is currently 110. CIWA score is performed prior to the patient being given Ativan. She did score 15. I will speak with the hospitalist about admission. Treatment Plan: [] Disposition: Admit Impression: Alcohol abuse Addendum: Just before the patient went to the floor as advised by nursing staff that she chose to go home and left the ED. Patient states that she was just going to do her detox at home and left. This note was generated with [employer] dictation software. It may contain incorrect words, spelling, and punctuation that were not noted in review of the chart prior to signing ED Disposition - Plan for ED Patient: Disposition: Against Medical Advice Chief Complaint: Anxiety Referrals: Care Physician,No Primary [Primary Care Provider] -
--- NOTE | 2018-05-20 10:43 | NURSING ---
Attempted to start an IV per MD order lt AC without success. RN then attempted to retry and PT became very upset stating can't we talk about where you're going to poke me? I don't want to keep being stuck and bruised everywhere. Informed pt that when I entered room to ask where IV's were successful in the past she pointed to lt forearm where previous RN was unsuccessful and then stated where ever. RN stated had asked PT if IV attempt was successful in her hand in the past. Pt states it depends. Applied tourniquet and pt pulled her arm away stating why do you keep looking on the lt side? Informed pt that RN would speak to the MD re: need for an IV.
[2018-05-20] MEDS: LORazepam 2 MG/ML Syringe 1 MG IV (11:09)
[2018-05-20 11:19] LABS: Absolute Neutrophil Count 3.8 X10^3/uL (2.0-7.7); Basophil# 0.06 X10^3/uL; Basophil% 0.9 % (0-1); Eosinophil# 0.06 X10^3/uL; Eosinophils% 0.9 % (0-5); Hematocrit 44.1 % (37-47); Hemoglobin 14.5 g/dl (12.0-15.0); Lymphocyte % 29.2 % (19-41); Mean Corp Hgb Conc 32.9 g/gl (32-36); Mean Corpuscular Hgb 30.7 pg (27.0-32.0); Mean Corpuscular Volume 93.2 fL (81-99); Mean Platelet Vol. 9.5 fl (6.2-12.0); Monocyte# 0.65 X10^3/uL; Neutrophil # 3.83 X10^3/uL (2.7-7.7); POSITIVE COUNT NO; POSITIVE DIFFERENTIAL NO; POSITIVE MORPHOLOGY NO; Platelet Count 317 K/mm3 (150-450); RBC Distribution Width CV 14.1 % (11.6-14.6); RBC Distribution Width SD 48.1 fl (35.1-43.9); Red Blood Count 4.73 M/mm3 (4.2-5.4); White Blood Count 6.5 K/mm3 (4.4-11.0)
[2018-05-20 11:30] LABS: AST(SGOT) 33 U/L (15-37); Alanine Aminotransfer ALT/SGPT 22 U/L (13-56); Albumin, Serum 3.8 g/dL (3.2-5.0); Alkaline Phosphatase 64 U/L (45-117); Anion Gap 9 (5-15); BUN 8 mg/dL (7-18); BUN/Creat Ratio 9.8 RATIO (10-20); Bilirubin, Direct 0.09 mg/dL (0.00-0.30); Calcium,Total 8.4 mg/dL (8.5-10.1); Chloride 103 mmol/L (98-107); Creatinine, Serum 0.82 mg/dL (0.55-1.02); EST Glomerular Filtration Rate 80 mL/min (>60); Est Glom Filt Rate - Afr Amer 97 mL/min (>60); Estimated Creatinine Clearance 75.92 ml/min; Glucose 84 mg/dL (74-106); Potassium 4.2 mmol/L (3.5-5.1); Protein, Total 7.8 g/dL (6.4-8.2); Sodium Level 139 mmol/L (136-145)
[2018-05-20 11:42] LABS: Amphetamine Urine VISTA NEGATIVE (<1000 ng/mL); Barbiturate Urine VISTA NEGATIVE (< 200 ng/mL); Benzodiazepine Urine VISTA NEGATIVE (< 200 ng/mL); Cocaine Urine VISTA NEGATIVE (< 300 ng/mL); Ecstacy Urine VISTA NEGATIVE (< 500 ng/mL); Methadone Urine VISTA NEGATIVE (< 300 ng/mL); PCP Urine VISTA NEGATIVE (< 25 ng/mL); THC Urine VISTA NEGATIVE (< 50 ng/mL); Vista UDS pH Range 6
[2018-05-20 12:03] VITALS: BP 115/69; PULSE 98; RESP 16; O2SAT 99
--- NOTE | 2018-05-20 12:25 | HP.PCM_ITS ---
Problem List (1) Alcohol withdrawal Status: Acute Qualifiers: Complication of substance-induced condition: uncomplicated Qualified Code(s ): F10.230 - Alcohol dependence with withdrawal, uncomplicated (2) Alcohol dependence Status: Chronic Qualifiers: Substance use status: unspecified alcohol-induced disorder Qualified Code(s ): F10.29 - Alcohol dependence with unspecified alcohol-induced disorder (3) Systemic lupus erythematosus Status: Chronic Qualifiers: Systemic lupus erythematosus type: unspecified Systemic lupus erythematosus organ involvement: other Qualified Code(s): M32.19 - Other organ or system involvement in systemic lupus erythematosus (4) Fibromyalgia Status: Chronic History of Present Illness Date of Admission: 05/20/18 Chief Complaint: Acute alcohol withdrawal The patient is a 48 year old F with past medical history of SLE, alcohol dependency, drinks more than a pint of alcohol every day, comes in with complaints of nausea, vomiting and abdominal cramps, tremors wanting medical stabilization. Patient denied any fever or chills. Admits to tremors. She states that she has been drinking for more than 5 years, stopped 6 months ago. Resumed 2 days ago. Drinks unspecified amount of alcohol; more than a pint a day. Vitals in the ED show a temperature of 90 8.1F, heart rate of 94, blood pressure 119/84, respiratory 16, SPO2 100% on room air. Admitting blood work was unremarkable for chemistries. Urine tox was negative. Serum alcohol level was 280, CIWA score was 15. Past Medical History Past Medical History (Chronic Problems): Chronic Problems Alcohol dependence (Chronic) Systemic lupus erythematosus (Chronic) Fibromyalgia (Chronic) History of chest pain (Chronic) Allergies metoclopramide HCl [From Reglan] Allergy (Verified 05/20/18 09:45) Other Sulfa (Sulfonamide Antibiotics) Allergy (Verified 05/20/18 09:45) Hives prochlorperazine [From Compazine] Adverse Reaction (Verified 05/20/18 09:45) Other Home Medications: Ambulatory Orders Medication Instructions Recorded Hydroxychloroquine [Plaquenil] 200 mg PO BIDCM 10/15/13 Cyclobenzaprine [Flexeril] 10 mg PO TID PRN #20 tab 05/01/18 Gabapentin [Neurontin] 200 mg PO TID 05/01/18 Ketorolac [Toradol] 10 mg PO Q6H #20 tab 05/02/18 hydrOXYzine pamoate capsule 50 mg PO TID PRN PRN #30 cap 05/19/18 [Vistaril] Surgical History: appendectomy, hysterectomy, - - bilateral knee surgeries Psychiatric History: Anxiety 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 Denies: Anorexia, Chills, Fever, Night Sweats, Weight Change Eyes: Denies: Blurred vision, Cataracts, Conjunctivae Inflammation, Pain, Redness, Vision Change HEENT: Denies: Difficulty Hearing, Difficulty Swallowing, Head Aches, Hearing Changes, Sinus Congestion, Sinus Drainage, Sore Throat Cardiovascular: Denies: Chest Pain, Claudication, Orthopnea, Palpitations, Paroxysmal Noc. Dyspnea Respiratory: Denies: Cough, Hemoptysis, Shortness of breath at rest, Shortness of breath upon exertion, Sputum production Gastrointestinal: Reports: Nausea, Vomiting, - - abdominal cramps. Denies: Abdominal Pain, Hematemesis, Hematochezia Genitourinary: Denies: Dysuria, Frequency Gynecological: Denies: Breast symptoms, Excessively long or heavy periods Musculoskeletal: Denies: Joint Pain, Joint stiffness, Joint swelling, Joint Tenderness Skin: Denies: Pruritis, Rash, Wounds Neurological: Reports: Tremor. Denies: Difficulty swallowing, Focal weakness, Numbness, Tingling Psychiatric: Denies: Anxiety, Depression, Homicidal Ideations, Suicidal Ideations Hematologic/ Lymphatic: Denies: Easy Bruising, Easy Bleeding VTE Information - Inpt Only VTE Present on Admission: No VTE Pharm Prophylaxis ordered?: Yes Patient Problems: Active and Suspected Problems Alcohol withdrawal (Acute) - Physical Exam General: Alert, Oriented x3, Cooperative, No apparent distress HEENT: Atraumatic, PERRLA, EOMI, Normocephalic Oral: Moist Mucosa Neck: Supple, No JVD, Negative Carotid Bruits Lungs: Clear to auscultation, Normal air movement Cardiovascular: Regular rate, Regular Rhythm, Normal S1, Normal S2, No murmurs Abdomen: Bowel Sounds Present, Soft, Non Tender, Non-Distended, No Hepato- splenomegaly Extremities: No edema Skin: No rashes, No breakdown Musculoskeletal: No Tenderness to Palpation of Joints or Extremities Lymphatic: No Cervical, Supraclavicular, or Inguinal Adenopathy Neurological: Cranial nerves II-XII grossly intact, Neuro grossly intact Psych/Mental Status: Normal Affect, Appropriate, Anxious Vital Signs Temp Pulse Resp BP Pulse Ox 98.1 F 98 16 115/69 99 05/20/18 09:42 05/20/18 12:03 05/20/18 12:03 05/20/18 12:03 05/20/18 12:03 Oxygen Delivery Method Room Air Weight: 56.1 kg Body Mass Index (BMI) 18.8 Laboratory Tests Past 24 Hrs 05/20/18 05/20/18 05/20/18 11:02 11:02 11:02 WBC 6.5 RBC 4.73 Hgb 14.5 Hct 44.1 MCV 93.2 MCH 30.7 MCHC 32.9 RDW 14.1 RDW Differential 48.1 H Plt Count 317 MPV 9.5 Immature Gran % (Auto) 0.000 Neut % (Auto) 59.0 Lymph % (Auto) 29.2 Amador % (Auto) 10.0 Eos % (Auto) 0.9 Baso % (Auto) 0.9 Absolute Neuts (auto) 3.8 Absolute Lymphs (auto) 1.90 Total Counted Not Reportable Sodium 139 Potassium 4.2 Chloride 103 Carbon Dioxide 27.0 Anion Gap 9 BUN 8 Creatinine 0.82 Estim Creat Clear Calc 75.92 Est GFR (MDRD) Af Amer 97 Est GFR (MDRD) Non-Af 80 BUN/Creatinine Ratio 9.8 L Glucose 84 Calcium 8.4 L Total Bilirubin 0.40 Direct Bilirubin 0.09 AST 33 ALT 22 Alkaline Phosphatase 64 Total Protein 7.8 Albumin 3.8 Globulin 4.0 Urine Opiates Screen Urine Methadone Screen Ur Barbiturates Screen Ur Phencyclidine Scrn Ur Amphetamines Screen U Methamphetamin-MDMA U Benzodiazepines Scrn Urine Cocaine Screen U Cannabinoids Screen Ur Drug Screen Comment Ethyl Alcohol 280.0 05/20/18 11:15 WBC RBC Hgb Hct MCV MCH MCHC RDW RDW Differential Plt Count MPV Immature Gran % (Auto) Neut % (Auto) Lymph % (Auto) Amador % (Auto) Eos % (Auto) Baso % (Auto) Absolute Neuts (auto) Absolute Lymphs (auto) Total Counted Sodium Potassium Chloride Carbon Dioxide Anion Gap BUN Creatinine Estim Creat Clear Calc Est GFR (MDRD) Af Amer Est GFR (MDRD) Non-Af BUN/Creatinine Ratio Glucose Calcium Total Bilirubin Direct Bilirubin AST ALT Alkaline Phosphatase Total Protein Albumin Globulin Urine Opiates Screen NEGATIVE Urine Methadone Screen NEGATIVE Ur Barbiturates Screen NEGATIVE Ur Phencyclidine Scrn NEGATIVE Ur Amphetamines Screen NEGATIVE U Methamphetamin-MDMA NEGATIVE U Benzodiazepines Scrn NEGATIVE Urine Cocaine Screen NEGATIVE U Cannabinoids Screen NEGATIVE Ur Drug Screen Comment Ethyl Alcohol Assessment/Plan All Active Problems Alcohol withdrawal (Acute) Physical exam, pre-employment (Acute) Pyelonephritis (Resolved) 48 year old F with past medical history of SLE, alcohol dependency, drinks more than a pint of alcohol every day, comes in with complaints of nausea, vomiting and abdominal cramps, tremors wanting medical stabilization. 1. Acute alcohol withdrawal, CIWA score of 15, no history of alcohol withdrawal seizures, admitting alcohol level is 280, urine tox is negative Plan: Admit to MedSurg floor, manage alcohol withdrawal with [facility] protocol , monitor vitals closely 2. Alcohol dependency, advised to quit 3. SLE, on Plaquenil, NSAIDs 4. DVT prophylaxis -early ambulation Code Visit Inpatient E&M: 96497 Init Hosp L2
--- NOTE | 2018-05-20 13:34 | ED.RN ---
pt decided that she is going to try to detox at home and left with her mom. Pt declines admit at this time with attempts from staff to get her to stay
== END 2018-05-20 13:37 | disposition left against medical advice (07) ==
PROVIDERS: Emergency Provider Emergency Medicine
DX: F10.230 Alcohol dependence with withdrawal, uncomplicated (principal); F10.29 Alcohol dependence with unspecified alcohol-induced disorder; M32.19 Other organ or system involvement in systemic lupus erythematosus; M79.7 Fibromyalgia; Y90.8 Blood alcohol level of 240 mg/100 ml or more
CPT/HCPCS: 80048; 80076; 80307; 80320; 85025; 99285; A4216; G0480

== ENCOUNTER 2018-05-20 18:19 | Inpatient (IN) | payer MEDICAID, SELFPAY ==
[2018-05-20 18:22] VITALS: BP 119/75; PULSE 117; RESP 20; TEMP 37.1; O2SAT 97; BMI 18.6
[2018-05-20] MEDS: LORazepam 1 MG Tablet PO (19:01)
--- NOTE | 2018-05-20 19:23 | ED.VISSUMM ---
- ER Visit Summary Date of Service: 05/20/18 Chief Complaint: Alcohol withdrawal History of Present Illness: The patient is a 48 F returns to the ED after being seen earlier for alcohol withdrawal symptoms. Patient left the ED after being evaluated by hospitalist. Patient states she was convinced by her mother to return. She denies drinking additional alcohol when she went home. She states she had her Vistaril filled took 2 doses and went to bed. Stepmother is here with patient. States there is increasing stress with marriage problems at home. She seen yesterday in the ED also. Patient complains of increasing anxiety. Denies any tremors or any history of alcohol withdrawal seizures. States she was sober for 100 days up until couple days ago. Physical Examination: General: Alert and oriented ?3, cooperative, mildly anxious HEENT: Normocephalic, atraumatic. Moist mucosa membranes Neck: supple, nontender. Cardiovascular: Regular tachycardic rate and rhythm, no murmurs Respiratory: Normal breath sounds, symmetric, no distress Abdomen: Soft, nontender, nondistended Extremities: Nontender, no edema, pulses intact ?4 Neuro: no focal neurological deficits. Test Results: EtOH 248. U tox pending Emergency Department Course and Treatment: Patient slight tachycardia and evaluation. She is cooperative. Her CIWA scale is 12 on my evaluation. She had a 15 earlier today. She denies drinking alcohol she at home. I did order for recheck alcohol toxic ringing. She given p.o. Ativan. She is stable currently. Discussed with hospitalist Dr. Barclay for evaluation for admission for alcohol evaluation. Treatment Plan: [] Disposition: Admission Impression: Alcohol withdrawal This note was generated with [employer] dictation software. It may contain incorrect words, spelling, and punctuation that were not noted in review of the chart prior to signing ED Disposition - Plan for ED Patient: Disposition: Acute Care Hospital [facility] Chief Complaint: Substance Abuse Diagnosis: Alcohol withdrawal
--- NOTE | 2018-05-20 20:32 | PCM.HP.STD ---
Problem List (1) Alcohol withdrawal Status: Acute Qualifiers: Complication of substance-induced condition: uncomplicated Qualified Code(s): F10.230 - Alcohol dependence with withdrawal, uncomplicated (2) Alcohol dependence Status: Chronic Qualifiers: (3) Physical exam, pre-employment Status: Acute (4) Systemic lupus erythematosus Status: Chronic Qualifiers: (5) Fibromyalgia Status: Chronic (6) History of chest pain Status: Chronic (7) Cervical neuropathy Status: Chronic History of Present Illness Date of Admission: 05/20/18 Chief Complaint: Alcohol withdrawal symptoms mainly anxiety The patient is a 48 year old F with history of binge alcohol drinking for last 4-5 years with about 100 days of remission and relapsed came to ER with alcohol withdrawal symptoms. Patient came to ER earlier in the morning and was admitted by my colleague but she went home and decided to detox herself. Her CIWA earlier in the day was 15 with anxiety. Later today she came back to ER with complaint of anxiety but denies hallucination, tremors, loss of balance or fall. She has mild decreased sensation. She further states she is under tremendous stress from her marriage and that made her drink alcohol. [] Past Medical History Past Medical History (Chronic Problems): Chronic Problems Alcohol dependence (Chronic) Cervical neuropathy (Chronic) Systemic lupus erythematosus (Chronic) Fibromyalgia (Chronic) History of chest pain (Chronic) Allergies metoclopramide HCl [From Reglan] Allergy (Verified 05/20/18 18:22) Other Sulfa (Sulfonamide Antibiotics) Allergy (Verified 05/20/18 18:22) Hives prochlorperazine [From Compazine] Adverse Reaction (Verified 05/20/18 18:22) Other Home Medications: Ambulatory Orders Medication Instructions Recorded Hydroxychloroquine [Plaquenil] 200 mg PO BIDCM 10/15/13 Cyclobenzaprine [Flexeril] 10 mg PO TID PRN #20 tab 05/01/18 Gabapentin [Neurontin] 200 mg PO TID 05/01/18 Ketorolac [Toradol] 10 mg PO Q6H #20 tab 05/02/18 hydrOXYzine pamoate capsule 50 mg PO TID PRN PRN #30 cap 05/19/18 [Vistaril] Surgical History: appendectomy, hysterectomy, - - bilateral knee surgeries Psychiatric History: Anxiety 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 Smoking Status: Never smoker - *Family History Paternal History Items: Heart Disease Maternal History Items: No pertinent history Review of Systems Constitutional: Denies: Chills, Fever, Weight Change HEENT: Denies: Head Aches, Sinus Congestion, Sinus Drainage Cardiovascular: Denies: Chest Pain, Palpitations Respiratory: Denies: Cough, Shortness of breath at rest, Sputum production Gastrointestinal: Denies: Abdominal Pain, Nausea, Vomiting Genitourinary: Denies: Dysuria Musculoskeletal: Denies: Joint Pain, Joint Tenderness Skin: Denies: Rash, Wounds Neurological: Reports: Numbness - Of upper extremity secondary to cervical neuropathy. Denies: Focal weakness, Tingling Psychiatric: Denies: Anxiety, Depression, Homicidal Ideations, Suicidal Ideations Hematologic/ Lymphatic: Denies: Easy Bruising, Easy Bleeding VTE Information - Inpt Only VTE Present on Admission: No VTE Mechan Device Prophylaxis: None VTE Pharm Prophylaxis ordered?: Yes Patient Problems: Active and Suspected Problems Alcohol withdrawal (Acute) - Physical Exam General: Alert, Oriented x3, Cooperative HEENT: Atraumatic, PERRLA, EOMI, Normocephalic Oral: Dry Mucosa Neck: Supple, No JVD, Negative Carotid Bruits Lungs: Clear to auscultation, Normal air movement, No rhonchi, No wheeze Cardiovascular: Regular rate, No murmurs Abdomen: Bowel Sounds Present, Soft, Non Tender, Non-Distended Extremities: No edema, Capillary Refill Less than 3 Seconds Skin: No rashes, No breakdown Musculoskeletal: No Tenderness to Palpation of Joints or Extremities Neurological: Cranial nerves II-XII grossly intact, Neuro grossly intact Psych/Mental Status: Anxious, Restless Vital Signs Temp Pulse Resp BP Pulse Ox 98.8 F 117 H 20 H 119/75 97 05/20/18 18:22 05/20/18 18:22 05/20/18 18:22 05/20/18 18:22 05/20/18 18:22 Assessment/Plan All Active Problems Alcohol withdrawal (Acute) Physical exam, pre-employment (Acute) Pyelonephritis (Resolved) The patient is a 48 year old F with history of binge alcohol drinking for last 4-5 years with about 100 days of remission and relapsed came to ER with alcohol withdrawal symptoms. Patient came to ER earlier in the morning and was admitted by my colleague but she went home and decided to detox herself. Her CIWA earlier in the day was 15 with anxiety. Later today she came back to ER with complaint of anxiety but denies hallucination, tremors, loss of balance or fall. She has mild decreased sensation. She further states she is under tremendous stress from her marriage and that made her drink alcohol. 1. Acute alcohol withdrawal: With chronic binge alcohol drinking habit: Labs reviewed and is within normal limit. LFTs are within normal limit. U tox screen is negative. Earlier in the day, alcohol level was 280. GGT ordered. CIWA score of 12 2. Chronic binge alcohol use and dependence: Counseling was done to quit alcohol. 3. SLE, on Plaquenil, NSAIDs continued patient said C had feels like decreased vision in left eye. Patient was advised to follow-up with diamond sizer and grader recheck her refraction and rationale for color vision. She further wants to continue Plaquenil as it controls her lupus symptoms and it comes back when she stops taking it. 4. DVT prophylaxis: On Lovenox 40 mg subcu daily. Code Visit Inpatient E&M: 65392 Init Hosp L3
--- NOTE | 2018-05-20 20:36 | HP.PCM_ITS ---
Problem List (1) Alcohol withdrawal Status: Acute Qualifiers: Complication of substance-induced condition: uncomplicated Qualified Code(s ): F10.230 - Alcohol dependence with withdrawal, uncomplicated (2) Alcohol dependence Status: Chronic Qualifiers: (3) Physical exam, pre-employment Status: Acute (4) Systemic lupus erythematosus Status: Chronic Qualifiers: (5) Fibromyalgia Status: Chronic (6) History of chest pain Status: Chronic (7) Cervical neuropathy Status: Chronic History of Present Illness Date of Admission: 05/20/18 Chief Complaint: Alcohol withdrawal symptoms mainly anxiety The patient is a 48 year old F with history of binge alcohol drinking for last 4 -5 years with about 100 days of remission and relapsed came to ER with alcohol withdrawal symptoms. Patient came to ER earlier in the morning and was admitted by my colleague but she went home and decided to detox herself. Her CIWA earlier in the day was 15 with anxiety. Later today she came back to ER with complaint of anxiety but denies hallucination, tremors, loss of balance or fall. She has mild decreased sensation. She further states she is under tremendous stress from her marriage and that made her drink alcohol. [] Past Medical History Past Medical History (Chronic Problems): Chronic Problems Alcohol dependence (Chronic) Cervical neuropathy (Chronic) Systemic lupus erythematosus (Chronic) Fibromyalgia (Chronic) History of chest pain (Chronic) Allergies metoclopramide HCl [From Reglan] Allergy (Verified 05/20/18 18:22) Other Sulfa (Sulfonamide Antibiotics) Allergy (Verified 05/20/18 18:22) Hives prochlorperazine [From Compazine] Adverse Reaction (Verified 05/20/18 18:22) Other Home Medications: Ambulatory Orders Medication Instructions Recorded Hydroxychloroquine [Plaquenil] 200 mg PO BIDCM 10/15/13 Cyclobenzaprine [Flexeril] 10 mg PO TID PRN #20 tab 05/01/18 Gabapentin [Neurontin] 200 mg PO TID 05/01/18 Ketorolac [Toradol] 10 mg PO Q6H #20 tab 05/02/18 hydrOXYzine pamoate capsule 50 mg PO TID PRN PRN #30 cap 05/19/18 [Vistaril] Surgical History: appendectomy, hysterectomy, - - bilateral knee surgeries Psychiatric History: Anxiety 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 MIXING 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 history Smoking Status: Never smoker - *Family History Paternal History Items: Heart Disease Maternal History Items: No pertinent history Review of Systems Constitutional: Denies: Chills, Fever, Weight Change HEENT: Denies: Head Aches, Sinus Congestion, Sinus Drainage Cardiovascular: Denies: Chest Pain, Palpitations Respiratory: Denies: Cough, Shortness of breath at rest, Sputum production Gastrointestinal: Denies: Abdominal Pain, Nausea, Vomiting Genitourinary: Denies: Dysuria Musculoskeletal: Denies: Joint Pain, Joint Tenderness Skin: Denies: Rash, Wounds Neurological: Reports: Numbness - Of upper extremity secondary to cervical neuropathy. Denies: Focal weakness, Tingling Psychiatric: Denies: Anxiety, Depression, Homicidal Ideations, Suicidal Ideations Hematologic/ Lymphatic: Denies: Easy Bruising, Easy Bleeding VTE Information - Inpt Only VTE Present on Admission: No VTE Mechan Device Prophylaxis: None VTE Pharm Prophylaxis ordered?: Yes Patient Problems: Active and Suspected Problems Alcohol withdrawal (Acute) - Physical Exam General: Alert, Oriented x3, Cooperative HEENT: Atraumatic, PERRLA, EOMI, Normocephalic Oral: Dry Mucosa Neck: Supple, No JVD, Negative Carotid Bruits Lungs: Clear to auscultation, Normal air movement, No rhonchi, No wheeze Cardiovascular: Regular rate, No murmurs Abdomen: Bowel Sounds Present, Soft, Non Tender, Non-Distended Extremities: No edema, Capillary Refill Less than 3 Seconds Skin: No rashes, No breakdown Musculoskeletal: No Tenderness to Palpation of Joints or Extremities Neurological: Cranial nerves II-XII grossly intact, Neuro grossly intact Psych/Mental Status: Anxious, Restless Vital Signs Temp Pulse Resp BP Pulse Ox 98.8 F 117 H 20 H 119/75 97 05/20/18 18:22 05/20/18 18:22 05/20/18 18:22 05/20/18 18:22 05/20/18 18:22 Assessment/Plan All Active Problems Alcohol withdrawal (Acute) Physical exam, pre-employment (Acute) Pyelonephritis (Resolved) The patient is a 48 year old F with history of binge alcohol drinking for last 4 -5 years with about 100 days of remission and relapsed came to ER with alcohol withdrawal symptoms. Patient came to ER earlier in the morning and was admitted by my colleague but she went home and decided to detox herself. Her CIWA earlier in the day was 15 with anxiety. Later today she came back to ER with complaint of anxiety but denies hallucination, tremors, loss of balance or fall. She has mild decreased sensation. She further states she is under tremendous stress from her marriage and that made her drink alcohol. 1. Acute alcohol withdrawal: With chronic binge alcohol drinking habit: Labs reviewed and is within normal limit. LFTs are within normal limit. U tox screen is negative. Earlier in the day, alcohol level was 280. GGT ordered. CIWA score of 12 2. Chronic binge alcohol use and dependence: Counseling was done to quit alcohol. 3. SLE, on Plaquenil, NSAIDs continued patient said C had feels like decreased vision in left eye. Patient was advised to follow-up with chief information security officer recheck her refraction and rationale for color vision. She further wants to continue Plaquenil as it controls her lupus symptoms and it comes back when she stops taking it. 4. DVT prophylaxis: On Lovenox 40 mg subcu daily. Code Visit Inpatient E&M: 89489 Init Hosp L3
[2018-05-20 21:09] VITALS: BMI 18.7
[2018-05-20 21:14] VITALS: BMI 18.7
[2018-05-20 21:24] VITALS: BP 100/72; PULSE 102; RESP 16; TEMP 37.1; O2SAT 97
[2018-05-20 21:45] VITALS: BP 100/72; PULSE 102; RESP 16; TEMP 37.1
[2018-05-20] MEDS: LORazepam 1 MG Tablet 2 MG PO (21:46)
[2018-05-20] MEDS: Zolpidem Tartrate 5 MG Tablet PO (22:50)
[2018-05-20] MEDS: Folic Acid 1 MG Tablet PO (22:51)
[2018-05-20] MEDS: 0.9% Normal Saline 1,000 ML 100 ML IV (22:51)
[2018-05-20] MEDS: Gabapentin 100 MG Capsule PO (22:51)
[2018-05-21] VITALS (10 sets, daily range): BP systolic 98–119; BP diastolic 61–82; PULSE 106–114; RESP 16; TEMP 36.8–37.4; O2SAT 96–98
[2018-05-21] MEDS: LORazepam 1 MG Tablet 2 MG PO ×7 (01:35→20:03)
[2018-05-21 06:43] LABS: Amphetamine Urine VISTA NEGATIVE (<1000 ng/mL); Barbiturate Urine VISTA NEGATIVE (< 200 ng/mL); Benzodiazepine Urine VISTA NEGATIVE (< 200 ng/mL); Cocaine Urine VISTA NEGATIVE (< 300 ng/mL); Ecstacy Urine VISTA NEGATIVE (< 500 ng/mL); Methadone Urine VISTA NEGATIVE (< 300 ng/mL); PCP Urine VISTA NEGATIVE (< 25 ng/mL); THC Urine VISTA NEGATIVE (< 50 ng/mL); Vista UDS pH Range 6
[2018-05-21 08:08] LABS: GGTP 20 U/L (5-55)
[2018-05-21] MEDS: Acetaminophen 325 MG Tablet 650 MG PO (09:04)
[2018-05-21] MEDS: 0.9% Normal Saline 1,000 ML 100 ML IV ×2 (09:04→18:59)
[2018-05-21] MEDS: Thiamine Hydrochloride 100 MG Tablet PO ×2 (09:05→17:32)
[2018-05-21] MEDS: Multivitamins,Ther W-Minerals Tablet 1 TABLET PO (09:05)
[2018-05-21] MEDS: Folic Acid 1 MG Tablet PO (09:05)
[2018-05-21] MEDS: Hydroxychloroquine 200 MG Tablet PO ×2 (09:06→17:32)
[2018-05-21] MEDS: Enoxaparin 40 MG/0.4 ML Syringe SC (09:06)
[2018-05-21] MEDS: Ondansetron 4 MG/2 ML Vial IV ×2 (09:10→20:03)
--- NOTE | 2018-05-21 09:44 | PCM.PN.HOSP ---
Patient Problems: Active and Suspected Problems Alcohol withdrawal (Acute) Subjective: Patient was seen and examined. Feels less tremulous. Denies fever, nausea or vomiting. Vitals/I&O's: Vital Signs Temp Pulse Resp BP Pulse Ox 98.8 F 114 H 16 111/65 96 05/21/18 09:34 05/21/18 09:34 05/21/18 09:34 05/21/18 09:34 05/21/18 09:34 Oxygen Delivery Method Room Air Weight: 55.9 kg Body Mass Index (BMI) 18.7 Intake and Output for Last 24 Hours 05/19/18 05/20/18 05/21/18 23:59 23:59 23:59 Intake Total 1236 / 1236 Balance 1236 / 1236 General: Alert, Oriented x3, Cooperative HEENT: Atraumatic, PERRLA, EOMI, Normocephalic Oral: Moist Mucosa Neck: Supple, No JVD, Negative Carotid Bruits Lungs: Clear to auscultation, Normal air movement Cardiovascular: Regular rate, Regular Rhythm, Normal S1, Normal S2, No murmurs Abdomen: Bowel Sounds Present, Soft, Non Tender, Non-Distended, No Hepato-splenomegaly Extremities: No edema Skin: No rashes, No breakdown Musculoskeletal: No Tenderness to Palpation of Joints or Extremities Lymphatic: No Cervical, Supraclavicular, or Inguinal Adenopathy Neurological: Cranial nerves II-XII grossly intact, Neuro grossly intact Psych/Mental Status: Normal Affect, Appropriate Laboratory Results 05/21/18 05:30: Urine Opiates Screen NEGATIVE, Urine Methadone Screen NEGATIVE, Ur Barbiturates Screen NEGATIVE, Ur Phencyclidine Scrn NEGATIVE, Ur Amphetamines Screen NEGATIVE, U Methamphetamin-MDMA NEGATIVE, U Benzodiazepines Scrn NEGATIVE, Urine Cocaine Screen NEGATIVE, U Cannabinoids Screen NEGATIVE, Ur Drug Screen Comment 05/21/18 06:50: GGT 20, Folate 16.10 05/21/18 06:50: Vitamin B12 Pending Current Medications Acetaminophen (Tylenol) 650 mg PO Q6H PRN PRN PRN Reason: Mild Pain (scale 0-3)/T>100.7 Last Admin: 05/21/18 09:04 Dose: 650 mg Al Hydroxide/Mg Hydroxide (Mylanta Ii) 30 ml PO Q6H PRN PRN PRN Reason: Gastric Burning Bisacodyl (Dulcolax) 10 mg RECTAL DAILY PRN PRN PRN Reason: Constipation Cyclobenzaprine HCl (Flexeril) 10 mg PO TID PRN PRN PRN Reason: MUSCLE SPASM Docusate Sodium (Colace) 200 mg PO BID PRN PRN PRN Reason: Constipation Enoxaparin Sodium (Lovenox) 40 mg SC DAILY [facility] Last Admin: 05/21/18 09:06 Dose: 40 mg Folic Acid (Folic Acid) 1 mg PO DAILY@0800 [facility] Stop: 05/22/18 08:01 Last Admin: 05/21/18 09:05 Dose: 1 mg Gabapentin (Neurontin) 100 mg PO [facility] Last Admin: 05/20/18 22:51 Dose: 100 mg [facility] Last Admin: 05/21/18 09:06 Dose: 200 mg Hydroxyzine Pamoate (Vistaril Pamoate Capsule) 50 mg PO TID PRN PRN PRN Reason: ANXIETY Sodium Chloride () 1,000 mls @ 100 mls/hr IV .Q10H [facility] Last Admin: 05/21/18 09:04 Dose: 100 mls/hr Ketorolac Tromethamine (Toradol) 10 mg PO Q6H PRN PRN PRN Reason: SEVERE PAIN Lorazepam (Ativan) 2 mg PO Q2H PRN PRN; Protocol PRN Reason: CIWA score > 8 but <15 Last Admin: 05/21/18 09:04 Dose: 2 mg Lorazepam (Ativan) 2 mg PO UD PRN; Protocol PRN Reason: CIWA score >/=15. Lorazepam (Ativan) 2 mg IV Q2H PRN PRN; Protocol PRN Reason: CIWA score > 8 but <15 Lorazepam (Ativan) 2 mg IV UD PRN; Protocol PRN Reason: CIWA score >/=15. Lorazepam (Ativan) 1 mg PO DAILY PRN PRN PRN Reason: Agitation Multivitamins/Minerals ([facility]ivitamin With Minerals) [facility] Last Admin: 05/21/18 09:05 Dose: 1 tablet Ondansetron HCl (Zofran) 4 mg IV Q6H PRN PRN PRN Reason: Nausea Last Admin: 05/21/18 09:10 Dose: 4 mg Oxycodone HCl (Oxyir) 5 mg PO Q4H PRN PRN PRN Reason: Moderate Pain (pain scale 4-5) Thiamine HCl (Vitamin B1) 100 mg PO BIDCM [facility] Stop: 05/23/18 17:01 Last Admin: 05/21/18 09:05 Dose: 100 mg Zolpidem Tartrate (Ambien (Generic)) 5 mg PO QHS PRN PRN PRN Reason: INSOMNIA Last Admin: 05/20/18 22:50 Dose: 5 mg Medical Necessity - Tobacco Use Smoking Status: Never smoker Assessment/Plan All Active Problems Alcohol withdrawal (Acute) Physical exam, pre-employment (Acute) Pyelonephritis (Resolved) 48 year old F with past medical history of SLE, alcohol dependency, drinks more than a pint of alcohol every day, comes in with complaints of nausea, vomiting and abdominal cramps, tremors wanting medical stabilization. 1. Acute alcohol withdrawal, moderate, admitting alcohol level is 280, urine tox is negative Improving, CIWA score is 9, continue per [facility] protocol, 2. Chronic Alcohol dependency, advised to quit 3. SLE, on Plaquenil, NSAIDs 4. DVT prophylaxis - Lovenox SC Code Visit Inpatient E&M: 95997 Subs Hosp L2
[2018-05-21] MEDS: Gabapentin 100 MG Capsule PO (22:35)
[2018-05-21] MEDS: Zolpidem Tartrate 5 MG Tablet PO (22:35)
[2018-05-22 00:12] VITALS: BP 126/80; PULSE 85; RESP 16; TEMP 37.1; O2SAT 95
[2018-05-22] MEDS: LORazepam 1 MG Tablet 2 MG PO ×3 (00:20→08:08)
[2018-05-22 04:04] VITALS: BP 107/71; PULSE 90; RESP 16; TEMP 36.9; O2SAT 98
[2018-05-22] MEDS: 0.9% Normal Saline 1,000 ML 100 ML IV (04:17)
[2018-05-22] MEDS: hydrOXYzine PAM 25 MG Capsule 50 MG PO (06:40)
[2018-05-22 08:00] VITALS: BP 106/59; PULSE 109; RESP 16; TEMP 37.1; O2SAT 99
[2018-05-22] MEDS: Hydroxychloroquine 200 MG Tablet PO (08:09)
[2018-05-22] MEDS: Folic Acid 1 MG Tablet PO (08:09)
[2018-05-22] MEDS: Multivitamins,Ther W-Minerals Tablet 1 TABLET PO (08:09)
[2018-05-22] MEDS: Thiamine Hydrochloride 100 MG Tablet PO (08:09)
[2018-05-22] MEDS: Enoxaparin 40 MG/0.4 ML Syringe SC (08:10)
[2018-05-22 08:42] LABS: Vitamin B12 276 pg/mL (211-911)
--- NOTE | 2018-05-22 10:31 | PCM.DC ---
- Discharge Diagnoses Current Active Problems: Current Active and Chronic Problems Alcohol withdrawal (Acute) Cervical neuropathy (Chronic) Discharge Activity: Return to Normal Activity Allergies/Adverse Reactions: Allergies metoclopramide HCl [From Reglan] Allergy (Verified 05/20/18 18:22) Other Sulfa (Sulfonamide Antibiotics) Allergy (Verified 05/20/18 18:22) Hives prochlorperazine [From Compazine] Adverse Reaction (Verified 05/20/18 18:22) Other Medications to take at Discharge Hydroxychloroquine [Plaquenil] 200 mg PO BIDCM 10/15/13 Gabapentin [Neurontin] 100 mg PO QHS 05/01/18 Ketorolac [Toradol] 10 mg PO Q6H #20 tab 05/02/18 hydrOXYzine pamoate capsule [Vistaril pamoate capsule] 50 mg PO TID PRN PRN #30 cap 05/19/18 Primary Care Physician: Care Physician,No Primary [Primary Care Provider] - Test Results: Test results from this visit will be discussed in further detail at your follow-up appointment, if applicable. Proposed Discharge Date: 05/22/18
--- NOTE | 2018-05-22 10:36 | PCM.DC.SUM ---
Discharge Date and Diagnosis - Problem List Patient Problems: Active and Suspected Problems Alcohol withdrawal (Acute) Date of Admission: 05/20/18 Date of Discharge: 05/22/18 - Primary Discharge Diagnosis Active and Suspected Problems Alcohol withdrawal (Acute) - Secondary Discharge Diagnosis Chronic Problems Alcohol dependence (Chronic) Cervical neuropathy (Chronic) Systemic lupus erythematosus (Chronic) Fibromyalgia (Chronic) History of chest pain (Chronic) Hospital Course and Treatment Operations: None Summary of Care Provided: The patient is a 48 year old F with history of alcohol dependence with acute alcohol intoxication 1. Acute alcohol intoxication alcohol level on admission was 280 patient was admitted to regular nursing floor for medical stabilization. Patient was counseled on the need for cessation. She was also given outpatient references to follow-up to assess with her decision to quit 2. SLE symptoms controlled on Plaquenil as well as NSAIDs 3. DVT prophylaxis SC Lovenox Time spent on discharge 35 minutes Discharge Activity: Return to Normal Activity Home Medications: Medications to take at Discharge Hydroxychloroquine [Plaquenil] 200 mg PO BIDCM 10/15/13 Gabapentin [Neurontin] 100 mg PO QHS 05/01/18 Ketorolac [Toradol] 10 mg PO Q6H #20 tab 05/02/18 hydrOXYzine pamoate capsule [Vistaril pamoate capsule] 50 mg PO TID PRN PRN #30 cap 05/19/18 Primary Care Physician: Care Physician,No Primary [Primary Care Provider] - Disposition: Home Minutes spent on discharge:: 35 Medical Necessity - Tobacco Use Smoking Status: Never smoker Meaningful Use Info Meaningful Use Diagnoses (Choose all that apply): None applicable Code Visit Inpatient E&M: 37677 Disch Hosp
--- NOTE | 2018-05-22 12:13 | CASEMGMT ---
Social Work Note Per Charge Nurse Lindsey pt is not part of [facility] but pt was provided outpatient resources. SW met with pt as well to complete initial assessment and discuss any MH and substance abuse. Social Work Assessment Referral Date: 05/22/2018 Date of Assessment: 05/22/2018 Reason for consult: Substance Abuse, MH Hx Personal Status: SW met with pt to complete initial assessment. SW introduced self and role at [facility]. Pt's mom present in room. Pt gave this worker permission to talk pt with guest present in room. Pt states that she lives with her home on a one story ranch home. Pt states that she was previously independent with ADLs. Pt states that she currently doesn't work anywhere and that she is filing for SSI. Pt states that her mom is good support for her and her sisters. Substance Abuse Hx: Pt states that she had quit using alcohol but due to recent stress she drank alcohol again. Pt states that she is currently involved with a custody case with her three kids and her . Pt states that she is under stress and this led her to relapse. TIMOTHY offered support to pt. Pt states that she was informed to go through [facility]. Pt denied receiving brochure about [employer] and denied wanting additional information. Pt states that she has gone through [facility] before and knows how to get in contact with them. Mental Health Hx: Pt states that she has a history of anxiety and recently has experienced depression. Pt states that her current custody case is attributing to her anxiety and depression. SW offered support to pt. Pt states that her family has been good support for her throughout this time. Pt denied any suicidal/homicidal thoughts/plans/ideations. TIMOTHY educated pt on counseling resources. Pt receptive to this and agreeable to counseling resources. SW provided pt with counseling resources and provided pt with PCP list as pt states she doesn't have a PCP currently. Pt denied additional needs or concerns. Plan: Pt to discharge home with family support and outpatient resources for substance abuse and mental health Karly Flores SHELL REPRINT OPERATOR, [employer]
== END 2018-05-22 12:42 | disposition home or self-care (01) | DRG 434 ==
LOC: ED 20:12 → MS3 20:40
PROVIDERS: Admitting Provider Internal Medicine; Emergency Provider Emergency Medicine; Visit Provider Internal Medicine
DX: F10.239 Alcohol dependence with withdrawal, unspecified (principal); M32.9 Systemic lupus erythematosus, unspecified; Y90.8 Blood alcohol level of 240 mg/100 ml or more; M79.7 Fibromyalgia; G54.2 Cervical root disorders, not elsewhere classified; F10.229 Alcohol dependence with intoxication, unspecified; Z79.1 Long term (current) use of non-steroidal anti-inflammatories (NSAID)
CPT/HCPCS: 36415; 80048; 80053; 80076; 80307; 80320; 81025; 82607; 82746; 82977; 85025; 96374; 99284; 99285; J7030; A4216; G0480; J2405

== ENCOUNTER 2018-05-31 09:47 | Observation (INO) | payer MEDICAID, SELFPAY ==
[2018-05-31 09:48] VITALS: BP 131/80; PULSE 102; RESP 14; TEMP 37.1; O2SAT 98; BMI 18.8
--- NOTE | 2018-05-31 10:28 | ED.VISSUMM ---
- ER Visit Summary Date of Service: 05/31/18 Chief Complaint: Right flank pain History of Present Illness: The patient is a 48 F presenting with right flank pain. She states this has been ongoing for the past 9 days. She went to urgent care on Tuesday. Her urine was tested and they told her she had blood in her urine. She was advised to come to the ED at that time. She states she did not want to come to the ED. Today she presented due to persistent pain. She has a history of previous kidney stones requiring stents, and lupus. Physical Examination: Vitals are stable. Patient is afebrile. Alert no acute distress. HEENT exam is unremarkable. Neck is supple. Lungs are clear and equal bilaterally. Heart is regular rate and rhythm. Abdomen is soft right lower quadrant pain with no rebound or guarding Back: Right CVA tenderness Extremities are unremarkable. Skin is warm and dry. No focal neurologic deficit. Remainder of exam is unremarkable. Emergency Department Course and Treatment: Patient is on IV fluids, morphine, Zofran. CBC is unremarkable. Chemistries show a creatinine of 1.37 with a previous of 0.8. Urinalysis shows 0 white cells, [address] flank shows bilateral hydronephrosis right greater than left. No obstructive uropathy is seen at this time. Patient continues to have pain was given additional morphine. She was given IV fluids. She complains of urinary frequency and sensation that she is unable to completely empty her bladder. She urinated in the emergency department. Bladder scan was obtained and showed 100 cc of urine in her bladder following urination. She initially declined High catheter. She later agreed to High catheter placement. She continues to have right flank pain. She is becoming very anxious. She was given Ativan. She does not feel that she can go home. Discussed with the hospitalist. Disposition: Observation Impression: Intractable right flank pain This note was generated with [employer] dictation software. It may contain incorrect words, spelling, and punctuation that were not noted in review of the chart prior to signing ED Disposition - Plan for ED Patient: Disposition: Acute Care [facility] Chief Complaint: Flank Pain
[2018-05-31] MEDS: Morphine 4 MG/ML Syringe IV ×3 (10:54→15:28)
[2018-05-31] MEDS: 0.9% Normal Saline 1,000 ML 250 ML IV ×2 (10:55→15:27)
[2018-05-31] MEDS: Ondansetron 4 MG/2 ML Vial IV ×2 (10:55→21:37)
[2018-05-31 11:16] LABS: Absolute Lymphocyte Count 1.81 X10^3/ul (0.83-4.51); Absolute Neutrophil Count 3.2 X10^3/uL (2.0-7.7); Anion Gap 14 (5-15); BUN 9 mg/dL (7-18); BUN/Creat Ratio 6.6 RATIO (10-20); Basophil# 0.07 X10^3/uL; Basophil% 1.2 % (0-1); Calcium,Total 8.6 mg/dL (8.5-10.1); Chloride 107 mmol/L (98-107); Creatinine, Serum 1.37 mg/dL (0.55-1.02); EST Glomerular Filtration Rate 44 mL/min (>60); Eosinophil# 0.05 X10^3/uL; Eosinophils% 0.9 % (0-5); Est Glom Filt Rate - Afr Amer 53 mL/min (>60); Estimated Creatinine Clearance 45.56 ml/min; Glucose 86 mg/dL (74-106); Hematocrit 40.4 % (37-47); Hemoglobin 13.7 g/dl (12.0-15.0); Lymphocyte # 1.81 X10^3/ul (4.0); Lymphocyte % 31.5 % (19-41); Mean Corp Hgb Conc 33.9 g/gl (32-36); Mean Corpuscular Hgb 31.5 pg (27.0-32.0); Mean Corpuscular Volume 92.9 fL (81-99); Mean Platelet Vol. 9.4 fl (6.2-12.0); Monocyte# 0.58 X10^3/uL; Monocyte% 10.1 % (0-10); Neutrophil # 3.22 X10^3/uL (2.7-7.7); Neutrophil % 56.1 % (47-70); POSITIVE COUNT NO; POSITIVE DIFFERENTIAL NO; POSITIVE MORPHOLOGY NO; Platelet Count 360 K/mm3 (150-450); Potassium 3.8 mmol/L (3.5-5.1); RBC Distribution Width CV 13.3 % (11.6-14.6); RBC Distribution Width SD 44.3 fl (35.1-43.9); Red Blood Count 4.35 M/mm3 (4.2-5.4); Sodium Level 142 mmol/L (136-145); White Blood Count 5.7 K/mm3 (4.4-11.0)
[2018-05-31 12:07] LABS: Mucous, Urine 0 SEEN /hpf (<or=2+)
[2018-05-31 12:16] LABS: Color, Urine Straw (Yellow); Glucose, Dipstick Normal (Normal); Ketone-Dipstick Negative (Negative); Leukocyte Esterase-Dipstick Negative /ul (Negative); Nitrite-Dipstick Negative (Negative); Occult Blood-Urine 250 /ul (Negative); Protein-Dipstick Negative (Negative); Urine Bilirubin Dipstick Negative (Negative); Urine Clarity Sl. Cloudy (Clear); Urine Urobilinogen Normal (Normal)
[2018-05-31 12:33] LABS: Bacteria RARE /hpf (None Seen); Red Blood Cells-Urine 0-5 SEEN /hpf (0-5); Squamous Epithelial Cells - UA 5-10 SEEN /hpf (5-10); White Blood Cells 0 SEEN /hpf (0-5)
[2018-05-31] MEDS: LORazepam 1 MG Tablet PO (14:31)
--- NOTE | 2018-05-31 15:27 | NURSING ---
[address] INTRACTABLE FLANK PAIN
[2018-05-31 15:33] VITALS: BP 113/67; BP 133/67; PULSE 91; PULSE 97; RESP 17; O2SAT 97; O2SAT 99
[2018-05-31 16:08] VITALS: BMI 18.5
[2018-05-31 16:10] VITALS: BMI 18.5
[2018-05-31 16:15] VITALS: BP 109/75; PULSE 81; RESP 16; TEMP 36.7; O2SAT 100
--- NOTE | 2018-05-31 17:02 | PCM.HP.STD ---
Problem List (1) Flank pain Status: Acute (2) Systemic lupus erythematosus Status: Chronic Qualifiers: History of Present Illness Date of Admission: 05/31/18 Chief Complaint: Flank pain The patient is a 48 year old F h/o SLE and alcohol abuse presenting with bilateral flank pain worse on the right for the last 9 days. No obvious hematuria but she presented to an urgent care who felt she could have a stone and said she should come to the ER. CT in the ER showed hydronephrosis but no stone. She had a white placed which has not helped with the pain and she has anxiety about going home. 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 Her speech appears pressured during the interview and she states that she can have periods of hy productivity and little to no sleep. She does have periods of depression but she never gets to the point of severe depression and never feels useless or hopeless, more dysthymic. She has never been on an antidepressant before. Denies any SI/HI Past Medical History Past Medical History (Chronic Problems): Chronic Problems Alcohol dependence (Chronic) Cervical neuropathy (Chronic) Systemic lupus erythematosus (Chronic) Fibromyalgia (Chronic) History of chest pain (Chronic) Allergies metoclopramide HCl [From Reglan] Allergy (Verified 05/31/18 09:50) Other Sulfa (Sulfonamide Antibiotics) Allergy (Verified 05/31/18 09:50) Hives prochlorperazine [From Compazine] Adverse Reaction (Verified 05/31/18 09:50) Other Home Medications: Ambulatory Orders Medication Instructions Recorded Hydroxychloroquine [Plaquenil] 300 mg PO BIDCM 10/15/13 hydrOXYzine pamoate capsule 50 mg PO TID PRN PRN #30 cap 05/19/18 [Vistaril pamoate capsule] Albuterol Sulfate [Ventolin Hfa] 1 puff INHALATION Q6H PRN PRN 05/31/18 Aspirin [Aspirin, Baby] 81 mg PO DAILY@0800 05/31/18 Cetirizine HCl/Pseudoephedrine 1 each PO DAILY PRN PRN 05/31/18 [Zyrtec-D Tablet] Ondansetron [Zofran Odt] 4 mg PO Q6H PRN PRN 05/31/18 Surgical History: appendectomy, hysterectomy, - - bilateral knee surgeries Psychiatric History: Anxiety 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 Denies: Hematochezia, Nausea, Melena, Vomiting Genitourinary: Reports: Frequency, - - flank pain. Denies: Dysuria, Hematuria Musculoskeletal: Denies: Joint Pain, Joint Tenderness Skin: Denies: Rash, Wounds Neurological: Denies: Numbness, Tingling, Focal weakness Psychiatric: Reports: Depression. Denies: Anxiety, Homicidal Ideations, Suicidal Ideations Hematologic/ Lymphatic: Denies: Easy Bruising, Easy Bleeding VTE Information - Inpt Only VTE Present on Admission: No Patient Problems: Active and Suspected Problems Flank pain (Acute) - Physical Exam General: Alert, Oriented x3, Cooperative, No apparent distress HEENT: Atraumatic, EOMI, Normocephalic Oral: Moist Mucosa Neck: Supple, No JVD Lungs: Clear to auscultation, Normal air movement, No rhonchi, No wheeze, No rales Cardiovascular: Regular rate, Regular Rhythm, Normal S1, Normal S2, No murmurs Abdomen: Soft, Non Tender, Non-Distended, No Hepato-splenomegaly Extremities: No edema, Capillary Refill Less than 3 Seconds Skin: No rashes, No breakdown Musculoskeletal: No Tenderness to Palpation of Joints or Extremities, - - CVA tenderness R>L Neurological: Neuro grossly intact, Sensory exam intact to light touch and pain Psych/Mental Status: Impulsive, Restless, - - Speech is rapid and she admits to some impulsivity with purchases Vital Signs Temp Pulse Resp BP Pulse Ox 98.1 F 81 16 109/75 100 05/31/18 16:15 05/31/18 16:15 05/31/18 16:15 05/31/18 16:15 05/31/18 16:15 Oxygen Delivery Method Room Air Weight: 122 lb Body Mass Index (BMI) 18.5 Assessment/Plan All Active Problems Alcohol withdrawal (Acute) Flank pain (Acute) Physical exam, pre-employment (Acute) Pyelonephritis (Resolved) 1. flank pain with hydronephrosis and hematuria/SLE/SYLVIE - She has a white in place which will remain for now - Toradol PRN for the pain, will monitor creatinine as she is elevated to 1.39 from a baseline of 0.8 - will c/w her plaquenil - consult to nephrology for evaluation of possible nephritis and to set up out patient care in the area for her lupus as she has just moved here recently - She has occult blood but no RBC were seen in her UA - C/w IVF and repeat BMP and CBC in am 2. ? possible depression versus bipolar 2 - Will start on both zoloft 50 mg and lamictal 25 mg - The lamictal will need outpatient monitoring and slow titration up to ultimately 200 mg daily - I requested that her mother find her a PCP prior to her discharge to have that close follow-up DVT: SCDs Diet: regular Code Visit OBSV E&M: 60806 Initial observation care L3
[2018-05-31] MEDS: 0.9% NaCl Peripheral Flush Adult/Peds IV ×2 (17:27→21:37)
[2018-05-31] MEDS: Ketorolac 15 MG/ML Vial IV (17:27)
[2018-05-31] MEDS: 0.9% Normal Saline 1,000 ML 125 ML IV ×2 (17:28→23:27)
--- NOTE | 2018-05-31 18:56 | NURSING ---
Patient arrived to unit and was checked in by Sheeba, admission RN. She stated that when pt was notified that she is ordered toradol and no narcotics on unit- pt asked well if I need them they just have to make a phone call correct? Emotional support given by Sheeba and pt notified that toradol may work better due to decrease in inflammation and pain. This RN entered patient's room a short while later. Upon entering room- patient states that she is in extreme pain and needs pain medication ADAN. This RN gave Toradol through IV at that time. Immediately pt became very talkative and swung legs out of bed- Patient showed this RN leg bag that was completely full of urine and attached to right leg. This RN changed bag to large bag. Patient then began talking about how she was suppose to have a first date tonight and that now he will be coming here for their first date tonight.
[2018-05-31 20:31] VITALS: BP 105/65; PULSE 80; RESP 16; TEMP 36.4; O2SAT 100
[2018-05-31 20:44] VITALS: O2SAT 100
[2018-05-31 21:10] LABS: Erythrocyte Sedimentation Rate 2 mm/hr (0-20)
[2018-05-31 21:26] LABS: Rheumatoid Factor < 10.0 IU/mL (<15)
[2018-05-31] MEDS: Acetaminophen 325 MG Tablet 650 MG PO (21:37)
[2018-05-31] MEDS: Zolpidem Tartrate 5 MG Tablet PO (21:37)
[2018-05-31 22:29] LABS: Protein, Urine (Random) 24.6 mg/dL (<11.9)
[2018-06-01 01:55] VITALS: BP 105/63; PULSE 85; RESP 14; TEMP 36.9; O2SAT 100
[2018-06-01] MEDS: Ketorolac 15 MG/ML Vial IV ×2 (01:58→11:18)
[2018-06-01] MEDS: 0.9% NaCl Peripheral Flush Adult/Peds IV (01:58)
[2018-06-01 06:35] LABS: Absolute Lymphocyte Count 1.64 X10^3/ul (0.83-4.51); Absolute Neutrophil Count 2.5 X10^3/uL (2.0-7.7); Basophil# 0.04 X10^3/uL; Basophil% 0.8 % (0-1); Hematocrit 36.3 % (37-47); Hemoglobin 11.7 g/dl (12.0-15.0); Lymphocyte # 1.64 X10^3/ul (4.0); Lymphocyte % 33.4 % (19-41); Mean Corp Hgb Conc 32.2 g/gl (32-36); Mean Corpuscular Hgb 30.5 pg (27.0-32.0); Mean Corpuscular Volume 94.5 fL (81-99); Monocyte# 0.65 X10^3/uL; Monocyte% 13.2 % (0-10); Neutrophil # 2.47 X10^3/uL (2.7-7.7); Neutrophil % 50.4 % (47-70); Platelet Count 308 K/mm3 (150-450); RBC Distribution Width CV 13.9 % (11.6-14.6); RBC Distribution Width SD 48.2 fl (35.1-43.9); Red Blood Count 3.84 M/mm3 (4.2-5.4); White Blood Count 4.9 K/mm3 (4.4-11.0)
[2018-06-01 06:39] LABS: POSITIVE COUNT NO; POSITIVE DIFFERENTIAL NO; POSITIVE MORPHOLOGY NO
[2018-06-01 07:08] LABS: Anion Gap 7 (5-15); BUN 8 mg/dL (7-18); BUN/Creat Ratio 11.8 RATIO (10-20); Calcium,Total 7.9 mg/dL (8.5-10.1); Chloride 111 mmol/L (98-107); Creatinine, Serum 0.68 mg/dL (0.55-1.02); EST Glomerular Filtration Rate 100 mL/min (>60); Est Glom Filt Rate - Afr Amer 120 mL/min (>60); Estimated Creatinine Clearance 90.31 ml/min; Glucose 72 mg/dL (74-106); Potassium 3.9 mmol/L (3.5-5.1); Sodium Level 145 mmol/L (136-145)
[2018-06-01] MEDS: 0.9% Normal Saline 1,000 ML 125 ML IV ×3 (07:30→22:25)
[2018-06-01 08:25] VITALS: BP 129/79; PULSE 85; RESP 16; TEMP 36.8; O2SAT 98
[2018-06-01] MEDS: Hydroxychloroquine 200 MG Tablet 300 MG PO ×2 (10:22→22:25)
[2018-06-01] MEDS: lamoTRIgine 25 MG Tablet PO (10:22)
[2018-06-01] MEDS: Aspirin 81 MG TAB.CHEW PO (10:22)
[2018-06-01] MEDS: Sertraline 50 MG Tablet PO (10:23)
[2018-06-01] MEDS: ALPRAZolam 0.5 MG Tablet PO (10:23)
--- NOTE | 2018-06-01 11:43 | PCM.PN.HOSP ---
Patient Problems: Active and Suspected Problems Flank pain (Acute) Subjective: Patient complain of right renal angle pain radiation to umbilical region. She denies any fever, chills but has urgency and frequency. She has High catheter with urine clear. UA is negative of significant hematuria or pyuria. Nitrite and LE negative. No proteinuria. Vitals/I&O's: Vital Signs Temp Pulse Resp BP Pulse Ox 98.2 F 85 16 129/79 H 98 06/01/18 08:25 06/01/18 08:25 06/01/18 08:25 06/01/18 08:25 06/01/18 08:25 Oxygen Delivery Method Room Air Weight: 122 lb Body Mass Index (BMI) 18.5 Intake and Output for Last 24 Hours 05/30/18 05/31/18 06/01/18 23:59 23:59 23:59 Intake Total 1196 / 1196 884 / 884 Output Total 650 / 740 200 / 200 Balance 546 / 456 684 / 684 General: Alert, Oriented x3, Cooperative HEENT: Atraumatic, PERRLA, EOMI, Normocephalic Neck: Supple, No JVD, Negative Carotid Bruits Lungs: Clear to auscultation, Normal air movement, No wheeze, No rales Cardiovascular: Regular rate, Regular Rhythm, Normal S1, Normal S2, No murmurs Abdomen: Bowel Sounds Present, Soft, Tender - Tenderness present over right renal angle and right lumbar and umbilical region. Urine is clear. Extremities: No edema, Capillary Refill Less than 3 Seconds Skin: No rashes, No breakdown Musculoskeletal: No Tenderness to Palpation of Joints or Extremities Neurological: Cranial nerves II-XII grossly intact Psych/Mental Status: Normal Affect, Appropriate Laboratory Results 05/31/18 20:40: ESR 2 05/31/18 20:40: Rheumatoid Factor < 10.0 05/31/18 20:40: JAKI Screen Pending, MAXIMILIANO-1 Antibody Pending, SS-A/Ro IgG Antibody Pending, SS-B/La IgG Antibody Pending, Sm ([place]) Antibody Pending, MANAGER REIMBURSEMENT Antibody Pending, Scl-70 Scleroderma Ab Pending, Double Strand DNA Ab Pending, Centromere B Antibody Pending 05/31/18 21:48: Urine Creatinine 110.00 05/31/18 21:48: U Random Total Protein 24.6 H 06/01/18 06:10: WBC 4.9, RBC 3.84 L, Hgb 11.7 L, Hct 36.3 L, MCV 94.5, MCH 30.5, MCHC 32.2, RDW 13.9, RDW Differential 48.2 H, Plt Count 308, MPV 9.0, Immature Gran % (Auto) 0.200, Neut % (Auto) 50.4, Lymph % (Auto) 33.4, Tift % (Auto) 13.2 H, Eos % (Auto) 2.0, Baso % (Auto) 0.8, Absolute Neuts (auto) 2.5, Absolute Lymphs (auto) 1.64, Total Counted Not Reportable 06/01/18 06:10: Sodium 145, Potassium 3.9, Chloride 111 H, Carbon Dioxide 27.0, Anion Gap 7, BUN 8, Creatinine 0.68, Estim Creat Clear Calc 90.31, Est GFR (MDRD) Af Amer 120, Est GFR (MDRD) Non-Af 100, BUN/Creatinine Ratio 11.8, Glucose 72 L, Calcium 7.9 L Current Medications Acetaminophen (Tylenol) 650 mg PO Q6H PRN PRN PRN Reason: PAIN Last Admin: 05/31/18 21:37 Dose: 650 mg Albuterol Sulfate (Ventolin Aerosols) 2.5 mg INHALATION Q6H PRN PRN PRN Reason: SHORTNESS OF BREATH Alprazolam (Xanax) 0.5 mg PO BID PRN PRN PRN Reason: ANXIETY Last Admin: 06/01/18 10:23 Dose: 0.5 mg Aspirin (Aspirin, Baby) 81 mg PO DAILY@0800 [facility] Last Admin: 06/01/18 10:22 Dose: 81 mg Hydroxychloroquine Sulfate (Plaquenil) 300 mg PO BIDCM [facility] Last Admin: 06/01/18 10:22 Dose: 200 mg Sodium Chloride () 1,000 mls @ 125 mls/hr IV .Q8H [facility] Last Admin: 06/01/18 07:30 Dose: 125 mls/hr Ketorolac Tromethamine (Toradol) 15 mg IV Q8H PRN PRN PRN Reason: PAIN Stop: 06/05/18 16:23 Last Admin: 06/01/18 11:18 Dose: 15 mg Lamotrigine (Lamictal Chew) 25 mg PO DAILY [facility] Last Admin: 06/01/18 10:22 Dose: 25 mg Loratadine (Claritin) 10 mg PO DAILY PRN PRN Reason: CONGESTION Magnesium Hydroxide (Milk Of Magnesia) 30 ml PO DAILY PRN PRN PRN Reason: Constipation Ondansetron HCl (Zofran) 4 mg IV Q6H PRN PRN PRN Reason: NAUSEA Last Admin: 05/31/18 21:37 Dose: 4 mg Pseudoephedrine HCl (Sudafed) 60 mg PO 4X/DAY PRN Sertraline HCl (Zoloft) 50 mg PO DAILY [facility] Last Admin: 06/01/18 10:23 Dose: 50 mg Sodium Chloride () 5 - 30 ml IV UD PRN PRN Reason: SALINE FLUSH Last Admin: 06/01/18 01:58 Dose: 10 ml Zolpidem Tartrate (Ambien (Generic)) 5 mg PO QHS [facility] Last Admin: 05/31/18 21:37 Dose: 5 mg Medical Necessity - Tobacco Use Smoking Status: Never smoker Assessment/Plan All Active Problems Alcohol withdrawal (Acute) Flank pain (Acute) Physical exam, pre-employment (Acute) Pyelonephritis (Resolved) There is a 48-year-old female with uncertain history of SLE came to ER with right-sided flank pain for about the last 9 days. Patient denies hematuria but has increased frequency and urgency. She had history of kidney stone and had stent placed about [address] Stubbs as needed [facility]. She is further admitted for right flank pain associated with nausea and vomiting. She had High catheter placed for urine drainage CT finding of bilateral hydronephrosis, right greater than left. Patient has High catheter which shows clear urine. 1. Right renal/ureteric colic pain: CT abdomen and pelvis shows mild degree of right hydronephrosis and right hydroureter. Minimal degree of left hydronephrosis. Nonobstructive calculus was found. Prior cholecystectomy. Patient is concerned that she might have a stone as his history of previous stone about 10 years ago as mentioned above. Dr. Enamorado has been consulted. Pain control. UA is negative of pyuria, nitrite and LE 2. History of SLE with acute kidney injury, most probably prerenal: Admitting BUN creatinine was 9/1.37. Repeat creatinine 0.68. Creatinine got better with IV fluid. Seen by Dr. Beach does not think she has lupus nephritis because of absence of proteinuria. Microscopic hematuria, 025 cells per hpf. 3. History of chronic alcohol use, anxiety/depression or bipolar disorder: Patient is on Zoloft and Lamictal. Continue home medication. 4. DVT prophylaxis: Bilateral SCDs. She has history of bilateral vertebral artery dissection on blood thinners in the past and microscopic hematuria. Pharmacological prophylaxis contraindicated. Laboratory Results 05/31/18 20:40: ESR 2 05/31/18 20:40: Rheumatoid Factor < 10.0 05/31/18 20:40: JAKI Screen Pending, MAXIMILIANO-1 Antibody Pending, SS-A/Ro IgG Antibody Pending, SS-B/La IgG Antibody Pending, Sm ([place]) Antibody Pending, MANAGER REIMBURSEMENT Antibody Pending, Scl-70 Scleroderma Ab Pending, Double Strand DNA Ab Pending, Centromere B Antibody Pending 05/31/18 21:48: Urine Creatinine 110.00 05/31/18 21:48: U Random Total Protein 24.6 H 06/01/18 06:10: WBC 4.9, RBC 3.84 L, Hgb 11.7 L, Hct 36.3 L, MCV 94.5, MCH 30.5, MCHC 32.2, RDW 13.9, RDW Differential 48.2 H, Plt Count 308, MPV 9.0, Immature Gran % (Auto) 0.200, Neut % (Auto) 50.4, Lymph % (Auto) 33.4, [place] % (Auto) 13.2 H, Eos % (Auto) 2.0, Baso % (Auto) 0.8, Absolute Neuts (auto) 2.5, Absolute Lymphs (auto) 1.64, Total Counted Not Reportable 06/01/18 06:10: Sodium 145, Potassium 3.9, Chloride 111 H, Carbon Dioxide 27.0, Anion Gap 7, BUN 8, Creatinine 0.68, Estim Creat Clear Calc 90.31, Est GFR (MDRD) Af Amer 120, Est GFR (MDRD) Non-Af 100, BUN/Creatinine Ratio 11.8, Glucose 72 L, Calcium 7.9 L Clinical Impression(s) from Imaging Studies Abdomen/Pelvis CT 09/05/18 10:17 IMPRESSION: Bilateral hydronephrosis right greater than left. No obstructive uropathy is seen at this time. Electronically Signed: Perry Sorenson MD at 11:31 EDT Tel [phone], Service support , Code Visit Inpatient E&M: 29553 Subs Hosp L2
[2018-06-01 14:23] VITALS: BP 130/78; PULSE 75; RESP 18; TEMP 37.4; O2SAT 100
--- NOTE | 2018-06-01 14:36 | PCM.CONS.R ---
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 She thinks she was told that she had lupus involving her kidneys. She has been on prednisone in the past. He continues to have diffuse joint arthralgias without swelling. She was admitted for right flank pain for the past week. She has a history of kidney stones and stent placements by Dr. Stubbs years ago. She denied any gross hematuria, dysuria, fever or chills. She denied any groin pain. She has associated nausea vomiting decreased intake with the right flank pain. She says her pain is worse when she is up walking. She has a history of bilateral vertebral artery dissection on blood thinners in the past. She has neck pain and headaches intermittently. She takes Tylenol and Aleve for pain relief. She recently relocated to the area to be closer to family. She has been in [place] for the past 4-1/2 years. She has not established care with any local physicians since she returned home. I was asked to see her on consultation for possible lupus nephritis. She had a urinalysis that was negative for protein but did have some blood. She had a White catheter inserted. Timing of the urine sample in relation to White catheter placement is unclear. She presented to an urgent care who felt she could have a stone and said she should come to the ER. CT in the ER showed mild right hydronephrosis but no stone. She had a white placed which has not helped with the pain and she has anxiety about going home. Creatinine on admission was 1.3 improved to 0.68 today with IV hydration. 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 - Allergies Allergies: Allergies metoclopramide HCl [From Reglan] Allergy (Verified 05/31/18 09:50) Other Sulfa (Sulfonamide Antibiotics) Allergy (Verified 05/31/18 09:50) Hives prochlorperazine [From Compazine] Adverse Reaction (Verified 05/31/18 09:50) Other - Current Medications Current Medications: Current Medications Acetaminophen (Tylenol) 650 mg PO Q6H PRN PRN PRN Reason: PAIN Last Admin: 05/31/18 21:37 Dose: 650 mg Albuterol Sulfate (Ventolin Aerosols) 2.5 mg INHALATION Q6H PRN PRN PRN Reason: SHORTNESS OF BREATH Alprazolam (Xanax) 0.5 mg PO BID PRN PRN PRN Reason: ANXIETY Last Admin: 06/01/18 10:23 Dose: 0.5 mg Aspirin (Aspirin, Baby) 81 mg PO DAILY@0800 [facility] Last Admin: 06/01/18 10:22 Dose: 81 mg Hydroxychloroquine Sulfate (Plaquenil) 300 mg PO BIDCM [facility] Last Admin: 06/01/18 10:22 Dose: 200 mg Sodium Chloride () 1,000 mls @ 125 mls/hr IV .Q8H [facility] Last Admin: 06/01/18 07:30 Dose: 125 mls/hr Ketorolac Tromethamine (Toradol) 15 mg IV Q8H PRN PRN PRN Reason: PAIN Stop: 06/05/18 16:23 Last Admin: 06/01/18 11:18 Dose: 15 mg Lamotrigine (Lamictal Chew) 25 mg PO DAILY [facility] Last Admin: 06/01/18 10:22 Dose: 25 mg Loratadine (Claritin) 10 mg PO DAILY PRN PRN Reason: CONGESTION Magnesium Hydroxide (Milk Of Magnesia) 30 ml PO DAILY PRN PRN PRN Reason: Constipation Ondansetron HCl (Zofran) 4 mg IV Q6H PRN PRN PRN Reason: NAUSEA Last Admin: 05/31/18 21:37 Dose: 4 mg Pseudoephedrine HCl (Sudafed) 60 mg PO 4X/DAY PRN Sertraline HCl (Zoloft) 50 mg PO DAILY [facility] Last Admin: 06/01/18 10:23 Dose: 50 mg Sodium Chloride () 5 - 30 ml IV UD PRN PRN Reason: SALINE FLUSH Last Admin: 06/01/18 01:58 Dose: 10 ml Zolpidem Tartrate (Ambien (Generic)) 5 mg PO QHS [facility] Last Admin: 05/31/18 21:37 Dose: 5 mg - Past Medical History Past Medical History (Chronic Problems): Chronic Problems Alcohol dependence (Chronic) Cervical neuropathy (Chronic) Systemic lupus erythematosus (Chronic) Fibromyalgia (Chronic) History of chest pain (Chronic) - Past Surgical History Surgical History: appendectomy, hysterectomy, - - bilateral knee surgeries, ureteral stents - Social History Smoking Status: Never smoker Alcohol: Occasional Drugs: None - Family History Paternal History Items: Heart Disease, - - Type 1 DM Maternal History Items: No pertinent history Review of Systems Constitutional: Reports: Anorexia, Weakness. Denies: Chills, Fever Eyes: Denies: Vision Change HEENT: Reports: Head Aches - Intermittent history of vertebral artery dissection Cardiovascular: Denies: Chest Pain, Edema, Syncope Respiratory: Denies: Cough, Shortness of Breath Gastrointestinal: Reports: Nausea. Denies: Vomiting Genitourinary: Reports: Frequency, - - Right flank pain. Denies: Dysuria, Hematuria Musculoskeletal: Reports: Joint Tenderness, - - History of systemic lupus. Denies: Joint swelling Neurological: Denies: Tremor, Seizures Hematologic/ Lymphatic: Denies: Anemia Patient Problems: Active and Suspected Problems Flank pain (Acute) - Physical Exam General: Alert, Oriented x3, Cooperative, No apparent distress HEENT: PERRLA, EOMI Oral: Moist Mucosa Neck: Supple Lungs: Clear to auscultation Cardiovascular: Regular rate Abdomen: Bowel Sounds Present, Soft, Non Tender, Non-Distended, - - Right flank tenderness Extremities: No edema Skin: No rashes Musculoskeletal: No Muscle Wasting Neurological: Cranial nerves II-XII grossly intact Psych/Mental Status: Normal Affect, Appropriate, Anxious, Alert and oriented to time, place, person, mood and affect Vital Signs Temp Pulse Resp BP Pulse Ox 99.4 F H 75 18 130/78 H 100 06/01/18 14:23 06/01/18 14:23 06/01/18 14:23 06/01/18 14:23 06/01/18 14:23 Oxygen Delivery Method Room Air Weight: 55.338 kg Body Mass Index (BMI) 18.5 Intake and Output for Last 24 Hours 05/30/18 05/31/18 06/01/18 23:59 23:59 23:59 Intake Total 1196 / 1196 1499 / 1499 Output Total 650 / 740 600 / 600 Balance 546 / 456 899 / 899 Laboratory Tests Past 24 Hrs 05/31/18 05/31/18 05/31/18 20:40 20:40 20:40 WBC RBC Hgb Hct MCV MCH MCHC RDW RDW Differential Plt Count MPV Immature Gran % (Auto) Neut % (Auto) Lymph % (Auto) [place] % (Auto) Eos % (Auto) Baso % (Auto) Absolute Neuts (auto) Absolute Lymphs (auto) Total Counted ESR 2 Sodium Potassium Chloride Carbon Dioxide Anion Gap BUN Creatinine Estim Creat Clear Calc Est GFR (MDRD) Af Amer Est GFR (MDRD) Non-Af BUN/Creatinine Ratio Glucose Calcium U Random Total Protein Urine Creatinine Rheumatoid Factor < 10.0 JAKI Screen Pending MAXIMILIANO-1 Antibody Pending SS-A/Ro IgG Antibody Pending SS-B/La IgG Antibody Pending Sm ([place]) Antibody Pending LITIGATOR Antibody Pending Scl-70 Scleroderma Ab Pending Double Strand DNA Ab Pending Centromere B Antibody Pending 05/31/18 05/31/18 06/01/18 21:48 21:48 06:10 WBC 4.9 RBC 3.84 L Hgb 11.7 L Hct 36.3 L MCV 94.5 MCH 30.5 MCHC 32.2 RDW 13.9 RDW Differential 48.2 H Plt Count 308 MPV 9.0 Immature Gran % (Auto) 0.200 Neut % (Auto) 50.4 Lymph % (Auto) 33.4 [place] % (Auto) 13.2 H Eos % (Auto) 2.0 Baso % (Auto) 0.8 Absolute Neuts (auto) 2.5 Absolute Lymphs (auto) 1.64 Total Counted Not Reportable ESR Sodium Potassium Chloride Carbon Dioxide Anion Gap BUN Creatinine Estim Creat Clear Calc Est GFR (MDRD) Af Amer Est GFR (MDRD) Non-Af BUN/Creatinine Ratio Glucose Calcium U Random Total Protein 24.6 H Urine Creatinine 110.00 Rheumatoid Factor JAKI Screen MAXIMILIANO-1 Antibody SS-A/Ro IgG Antibody SS-B/La IgG Antibody Sm ([place]) Antibody LITIGATOR Antibody Scl-70 Scleroderma Ab Double Strand DNA Ab Centromere B Antibody 06/01/18 06:10 WBC RBC Hgb Hct MCV MCH MCHC RDW RDW Differential Plt Count MPV Immature Gran % (Auto) Neut % (Auto) Lymph % (Auto) [place] % (Auto) Eos % (Auto) Baso % (Auto) Absolute Neuts (auto) Absolute Lymphs (auto) Total Counted ESR Sodium 145 Potassium 3.9 Chloride 111 H Carbon Dioxide 27.0 Anion Gap 7 BUN 8 Creatinine 0.68 Estim Creat Clear Calc 90.31 Est GFR (MDRD) Af Amer 120 Est GFR (MDRD) Non-Af 100 BUN/Creatinine Ratio 11.8 Glucose 72 L Calcium 7.9 L U Random Total Protein Urine Creatinine Rheumatoid Factor JAKI Screen MAXIMILIANO-1 Antibody SS-A/Ro IgG Antibody SS-B/La IgG Antibody Sm ([place]) Antibody LITIGATOR Antibody Scl-70 Scleroderma Ab Double Strand DNA Ab Centromere B Antibody Clinical Impression(s) from Imaging Studies Abdomen/Pelvis CT 05/31/18 10:17 IMPRESSION: Bilateral hydronephrosis right greater than left. No obstructive uropathy is seen at this time. Electronically Signed: Perry Sorenson MD at 11:31 EDT Tel [phone], Service support , Assessment/Plan All Active Problems Alcohol withdrawal (Acute) Flank pain (Acute) Physical exam, pre-employment (Acute) Pyelonephritis (Resolved) 1. Prerenal azotemia creatinine 1.3 improved to 0.68 with IV hydration. Did not think that she has active lupus nephritis since her kidney function has improved with IV hydration. Furthermore do not think she requires any further immunosuppressive therapy since she has no overt proteinuria or uncontrolled hypertension or change in renal function. Will attempt to retrieve records from [facility]. 2. Microscopic hematuria with history of systemic lupus erythematosus questionable history of lupus nephritis. UA without proteinuria. Will check JAKI, serologies. Continue on Plaquenil. 3. History of alcohol use 4. History of kidney stones with ureteral stent placements. Currently without kidney stones a CT of the abdomen. Has mild mild bilateral hydronephrosis right greater than the left with continued right flank pain. Consider evaluation by urology
--- NOTE | 2018-06-01 14:44 | CON.PCM_ITS ---
Consultation - Renal 06/01/18 PCP/ Referring MD: Requesting physician: Dr Ordaz Primary care physician: No Primary Care Phys Reason for Consultation:: possible lupus nephritis - History of Present Illness History of Present Illness: The patient is a 48 year old F h/o SLE diagnosed and managed by a track oiler and/or access registrar from [facility] details unknown to her but is currently on Plaquenil. She thinks she was told that she had lupus involving her kidneys. She has been on prednisone in the past. He continues to have diffuse joint arthralgias without swelling. She was admitted for right flank pain for the past week. She has a history of kidney stones and stent placements by Dr. Stubbs years ago. She denied any gross hematuria, dysuria, fever or chills. She denied any groin pain. She has associated nausea vomiting decreased intake with the right flank pain. She says her pain is worse when she is up walking. She has a history of bilateral vertebral artery dissection on blood thinners in the past. She has neck pain and headaches intermittently. She takes Tylenol and Aleve for pain relief. She recently relocated to the area to be closer to family. She has been in [place] for the past 4-1/2 years. She has not established care with any local physicians since she returned home. I was asked to see her on consultation for possible lupus nephritis. She had a urinalysis that was negative for protein but did have some blood. She had a White catheter inserted. Timing of the urine sample in relation to White catheter placement is unclear. She presented to an urgent care who felt she could have a stone and said she should come to the ER. CT in the ER showed mild right hydronephrosis but no stone. She had a white placed which has not helped with the pain and she has anxiety about going home. Creatinine on admission was 1.3 improved to 0.68 today with IV hydration. 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 - Allergies Allergies: Allergies metoclopramide HCl [From Reglan] Allergy (Verified 05/31/18 09:50) Other Sulfa (Sulfonamide Antibiotics) Allergy (Verified 05/31/18 09:50) Hives prochlorperazine [From Compazine] Adverse Reaction (Verified 05/31/18 09:50) Other - Current Medications Current Medications: Current Medications Acetaminophen (Tylenol) 650 mg PO Q6H PRN PRN PRN Reason: PAIN Last Admin: 05/31/18 21:37 Dose: 650 mg Albuterol Sulfate (Ventolin Aerosols) 2.5 mg INHALATION Q6H PRN PRN PRN Reason: SHORTNESS OF BREATH Alprazolam (Xanax) 0.5 mg PO BID PRN PRN PRN Reason: ANXIETY Last Admin: 06/01/18 10:23 Dose: 0.5 mg Aspirin (Aspirin, Baby) 81 mg PO DAILY@0800 [facility] Last Admin: 06/01/18 10:22 Dose: 81 mg Hydroxychloroquine Sulfate (Plaquenil) 300 mg PO BIDCM [facility] Last Admin: 06/01/18 10:22 Dose: 200 mg Sodium Chloride () 1,000 mls @ 125 mls/hr IV .Q8H [facility] Last Admin: 06/01/18 07:30 Dose: 125 mls/hr Ketorolac Tromethamine (Toradol) 15 mg IV Q8H PRN PRN PRN Reason: PAIN Stop: 06/05/18 16:23 Last Admin: 06/01/18 11:18 Dose: 15 mg Lamotrigine (Lamictal Chew) 25 mg PO DAILY [facility] Last Admin: 06/01/18 10:22 Dose: 25 mg Loratadine (Claritin) 10 mg PO DAILY PRN PRN Reason: CONGESTION Magnesium Hydroxide (Milk Of Magnesia) 30 ml PO DAILY PRN PRN PRN Reason: Constipation Ondansetron HCl (Zofran) 4 mg IV Q6H PRN PRN PRN Reason: NAUSEA Last Admin: 05/31/18 21:37 Dose: 4 mg Pseudoephedrine HCl (Sudafed) 60 mg PO 4X/DAY PRN Sertraline HCl (Zoloft) 50 mg PO DAILY [facility] Last Admin: 06/01/18 10:23 Dose: 50 mg Sodium Chloride () 5 - 30 ml IV UD PRN PRN Reason: SALINE FLUSH Last Admin: 06/01/18 01:58 Dose: 10 ml Zolpidem Tartrate (Ambien (Generic)) 5 mg PO QHS [facility] Last Admin: 05/31/18 21:37 Dose: 5 mg - Past Medical History Past Medical History (Chronic Problems): Chronic Problems Alcohol dependence (Chronic) Cervical neuropathy (Chronic) Systemic lupus erythematosus (Chronic) Fibromyalgia (Chronic) History of chest pain (Chronic) - Past Surgical History Surgical History: appendectomy, hysterectomy, - - bilateral knee surgeries, ureteral stents - Social History Smoking Status: Never smoker Alcohol: Occasional Drugs: None - Family History Paternal History Items: Heart Disease, - - Type 1 DM Maternal History Items: No pertinent history Review of Systems Constitutional: Reports: Anorexia, Weakness. Denies: Chills, Fever Eyes: Denies: Vision Change HEENT: Reports: Head Aches - Intermittent history of vertebral artery dissection Cardiovascular: Denies: Chest Pain, Edema, Syncope Respiratory: Denies: Cough, Shortness of Breath Gastrointestinal: Reports: Nausea. Denies: Vomiting Genitourinary: Reports: Frequency, - - Right flank pain. Denies: Dysuria, Hematuria Musculoskeletal: Reports: Joint Tenderness, - - History of systemic lupus. Denies: Joint swelling Neurological: Denies: Tremor, Seizures Hematologic/ Lymphatic: Denies: Anemia Patient Problems: Active and Suspected Problems Flank pain (Acute) - Physical Exam General: Alert, Oriented x3, Cooperative, No apparent distress HEENT: PERRLA, EOMI Oral: Moist Mucosa Neck: Supple Lungs: Clear to auscultation Cardiovascular: Regular rate Abdomen: Bowel Sounds Present, Soft, Non Tender, Non-Distended, - - Right flank tenderness Extremities: No edema Skin: No rashes Musculoskeletal: No Muscle Wasting Neurological: Cranial nerves II-XII grossly intact Psych/Mental Status: Normal Affect, Appropriate, Anxious, Alert and oriented to time, place, person, mood and affect Vital Signs Temp Pulse Resp BP Pulse Ox 99.4 F H 75 18 130/78 H 100 06/01/18 14:23 06/01/18 14:23 06/01/18 14:23 06/01/18 14:23 06/01/18 14:23 Oxygen Delivery Method Room Air Weight: 55.338 kg Body Mass Index (BMI) 18.5 Intake and Output for Last 24 Hours 05/30/18 05/31/18 06/01/18 23:59 23:59 23:59 Intake Total 1196 / 1196 1499 / 1499 Output Total 650 / 740 600 / 600 Balance 546 / 456 899 / 899 Laboratory Tests Past 24 Hrs 05/31/18 05/31/18 05/31/18 20:40 20:40 20:40 WBC RBC Hgb Hct MCV MCH MCHC RDW RDW Differential Plt Count MPV Immature Gran % (Auto) Neut % (Auto) Lymph % (Auto) [place] % (Auto) Eos % (Auto) Baso % (Auto) Absolute Neuts (auto) Absolute Lymphs (auto) Total Counted ESR 2 Sodium Potassium Chloride Carbon Dioxide Anion Gap BUN Creatinine Estim Creat Clear Calc Est GFR (MDRD) Af Amer Est GFR (MDRD) Non-Af BUN/Creatinine Ratio Glucose Calcium U Random Total Protein Urine Creatinine Rheumatoid Factor < 10.0 JAKI Screen Pending MAXIMILIANO-1 Antibody Pending SS-A/Ro IgG Antibody Pending SS-B/La IgG Antibody Pending Sm ([place]) Antibody Pending SALT WASHER Antibody Pending Scl-70 Scleroderma Ab Pending Double Strand DNA Ab Pending Centromere B Antibody Pending 05/31/18 05/31/18 06/01/18 21:48 21:48 06:10 WBC 4.9 RBC 3.84 L Hgb 11.7 L Hct 36.3 L MCV 94.5 MCH 30.5 MCHC 32.2 RDW 13.9 RDW Differential 48.2 H Plt Count 308 MPV 9.0 Immature Gran % (Auto) 0.200 Neut % (Auto) 50.4 Lymph % (Auto) 33.4 [place] % (Auto) 13.2 H Eos % (Auto) 2.0 Baso % (Auto) 0.8 Absolute Neuts (auto) 2.5 Absolute Lymphs (auto) 1.64 Total Counted Not Reportable ESR Sodium Potassium Chloride Carbon Dioxide Anion Gap BUN Creatinine Estim Creat Clear Calc Est GFR (MDRD) Af Amer Est GFR (MDRD) Non-Af BUN/Creatinine Ratio Glucose Calcium U Random Total Protein 24.6 H Urine Creatinine 110.00 Rheumatoid Factor JAKI Screen MAXIMILIANO-1 Antibody SS-A/Ro IgG Antibody SS-B/La IgG Antibody Sm ([place]) Antibody SALT WASHER Antibody Scl-70 Scleroderma Ab Double Strand DNA Ab Centromere B Antibody 06/01/18 06:10 WBC RBC Hgb Hct MCV MCH MCHC RDW RDW Differential Plt Count MPV Immature Gran % (Auto) Neut % (Auto) Lymph % (Auto) [place] % (Auto) Eos % (Auto) Baso % (Auto) Absolute Neuts (auto) Absolute Lymphs (auto) Total Counted ESR Sodium 145 Potassium 3.9 Chloride 111 H Carbon Dioxide 27.0 Anion Gap 7 BUN 8 Creatinine 0.68 Estim Creat Clear Calc 90.31 Est GFR (MDRD) Af Amer 120 Est GFR (MDRD) Non-Af 100 BUN/Creatinine Ratio 11.8 Glucose 72 L Calcium 7.9 L U Random Total Protein Urine Creatinine Rheumatoid Factor JAKI Screen MAXIMILIANO-1 Antibody SS-A/Ro IgG Antibody SS-B/La IgG Antibody Sm ([place]) Antibody SALT WASHER Antibody Scl-70 Scleroderma Ab Double Strand DNA Ab Centromere B Antibody Clinical Impression(s) from Imaging Studies Abdomen/Pelvis CT 05/31/18 10:17 IMPRESSION: Bilateral hydronephrosis right greater than left. No obstructive uropathy is seen at this time. Electronically Signed: Perry Sorenson MD at 11:31 EDT Tel [phone], Service support , Assessment/Plan All Active Problems Alcohol withdrawal (Acute) Flank pain (Acute) Physical exam, pre-employment (Acute) Pyelonephritis (Resolved) 1. Prerenal azotemia creatinine 1.3 improved to 0.68 with IV hydration. Did not think that she has active lupus nephritis since her kidney function has improved with IV hydration. Furthermore do not think she requires any further immunosuppressive therapy since she has no overt proteinuria or uncontrolled hypertension or change in renal function. Will attempt to retrieve records from [facility]. 2. Microscopic hematuria with history of systemic lupus erythematosus questionable history of lupus nephritis. UA without proteinuria. Will check JAKI, serologies. Continue on Plaquenil. 3. History of alcohol use 4. History of kidney stones with ureteral stent placements. Currently without kidney stones a CT of the abdomen. Has mild mild bilateral hydronephrosis right greater than the left with continued right flank pain. Consider evaluation by urology
[2018-06-01 15:00] VITALS: O2SAT 98
[2018-06-01] MEDS: oxyCODONE 5 MG Tablet PO ×2 (15:15→19:36)
--- NOTE | 2018-06-01 17:14 | NURSING ---
Pt resting in bed, states her pain is much more controlled after OxyIR. Requesting to take her plaquenil at hs. Will pass along to night baker.
[2018-06-01 19:42] VITALS: BP 133/90; PULSE 77; RESP 16; TEMP 37.2; O2SAT 100
[2018-06-02 01:59] VITALS: BP 95/62; PULSE 73; RESP 16; TEMP 36.9; O2SAT 100
[2018-06-02] MEDS: 0.9% Normal Saline 1,000 ML 125 ML IV (06:18)
[2018-06-02] MEDS: oxyCODONE 5 MG Tablet PO (07:22)
[2018-06-02] MEDS: 0.9% NaCl Peripheral Flush Adult/Peds IV (07:23)
[2018-06-02 07:54] VITALS: BP 113/70; PULSE 91; RESP 18; TEMP 37.1; O2SAT 94
[2018-06-02] MEDS: ALPRAZolam 0.5 MG Tablet PO (08:04)
--- NOTE | 2018-06-02 08:14 | NURSING ---
Pt did not want to take scheduled 0800 and 1000 meds yet because she wanted to see what the doctor (Doctor Deny and Dr. Enamorado) had to say first.
--- NOTE | 2018-06-02 09:01 | PCM.PN.HOSP ---
Subjective: Patient is still complaining of right flank and right lumbar region pain when someone enters the room. Objectively, there is no tenderness and she is comfortable when no one watching her. CT abdomen does not show any stone/calculus Vitals/I&O's: Vital Signs Temp Pulse Resp BP Pulse Ox 98.8 F 91 18 113/70 94 06/02/18 07:54 06/02/18 07:54 06/02/18 07:54 06/02/18 07:54 06/02/18 07:54 Oxygen Delivery Method Room Air Weight: 122 lb Body Mass Index (BMI) 18.5 Intake and Output for Last 24 Hours 05/31/18 06/01/18 06/02/18 23:59 23:59 23:59 Intake Total 1196 / 1196 3501 / 3501 978 / 978 Output Total 650 / 740 1100 / 1100 Balance 546 / 456 2401 / 2401 978 / 978 General: Alert, Oriented x3, Cooperative HEENT: Atraumatic, PERRLA, EOMI, Normocephalic Neck: Supple, No JVD, Negative Carotid Bruits Lungs: Clear to auscultation, Normal air movement Cardiovascular: Regular rate, Regular Rhythm, Normal S1, Normal S2, No murmurs Abdomen: Bowel Sounds Present, Soft, Non-Distended, Tender Extremities: No edema, Capillary Refill Less than 3 Seconds Skin: No rashes, No breakdown Musculoskeletal: No Tenderness to Palpation of Joints or Extremities Neurological: Cranial nerves II-XII grossly intact Psych/Mental Status: Normal Affect, Appropriate Current Medications Acetaminophen (Tylenol) 650 mg PO Q6H PRN PRN PRN Reason: PAIN Last Admin: 05/31/18 21:37 Dose: 650 mg Albuterol Sulfate (Ventolin Aerosols) 2.5 mg INHALATION Q6H PRN PRN PRN Reason: SHORTNESS OF BREATH Alprazolam (Xanax) 0.5 mg PO BID PRN PRN PRN Reason: ANXIETY Last Admin: 06/02/18 08:04 Dose: 0.5 mg Aspirin (Aspirin, Baby) 81 mg PO DAILY@0800 [facility] Last Admin: 06/01/18 10:22 Dose: 81 mg Hydroxychloroquine Sulfate (Plaquenil) 300 mg PO BID@0800,2200 [facility] Last Admin: 06/01/18 22:25 Dose: 200 mg Sodium Chloride () 1,000 mls @ 125 mls/hr IV .Q8H [facility] Last Admin: 06/02/18 06:18 Dose: 125 mls/hr Ketorolac Tromethamine (Toradol) 15 mg IV Q8H PRN PRN PRN Reason: PAIN Stop: 06/05/18 16:23 Last Admin: 06/01/18 11:18 Dose: 15 mg Lamotrigine (Lamictal Chew) 25 mg PO DAILY [facility] Last Admin: 06/01/18 10:22 Dose: 25 mg Loratadine (Claritin) 10 mg PO DAILY PRN PRN Reason: CONGESTION Magnesium Hydroxide (Milk Of Magnesia) 30 ml PO DAILY PRN PRN PRN Reason: Constipation Ondansetron HCl (Zofran) 4 mg IV Q6H PRN PRN PRN Reason: NAUSEA Last Admin: 05/31/18 21:37 Dose: 4 mg Oxycodone HCl (Oxyir) 5 mg PO Q4H PRN PRN PRN Reason: SEVERE PAIN (6-1010) Last Admin: 06/02/18 07:22 Dose: 5 mg Pseudoephedrine HCl (Sudafed) 60 mg PO 4X/DAY PRN Sertraline HCl (Zoloft) 50 mg PO DAILY [facility] Last Admin: 06/01/18 10:23 Dose: 50 mg Sodium Chloride () 5 - 30 ml IV UD PRN PRN Reason: SALINE FLUSH Last Admin: 06/02/18 07:23 Dose: 10 ml Zolpidem Tartrate (Ambien (Generic)) 5 mg PO QHS [facility] Last Admin: 06/01/18 22:25 Dose: Not Given Medical Necessity - Tobacco Use Smoking Status: Never smoker Assessment/Plan All Active Problems Alcohol withdrawal (Acute) Flank pain (Acute) Physical exam, pre-employment (Acute) Pyelonephritis (Resolved) There is a 48-year-old female with uncertain history of SLE came to ER with right-sided flank pain for about the last 9 days. Patient denies hematuria but has increased frequency and urgency. She had history of kidney stone and had stent placed about [address] Stubbs as needed [facility]. She is further admitted for right flank pain associated with nausea and vomiting. She had High catheter placed for urine drainage CT finding of bilateral hydronephrosis, right greater than left. Patient has High catheter which shows clear urine. 1. Right flank pain: CT abdomen and pelvis shows mild degree of right hydronephrosis and right hydroureter. Minimal degree of left hydronephrosis. Nonobstructive calculus was found. Prior cholecystectomy. Patient is concerned that she might have a stone as his history of previous stone about 10 years ago as mentioned above. Dr. Enamorado was consulted but handhole machine operator is OK and recommended Follow-up as an outpatient. Pain control. UA is negative of pyuria, nitrite and LE. 2. History of SLE with acute kidney injury, most probably prerenal: Admitting BUN creatinine was 9/1.37. Repeat creatinine 0.68. Creatinine got better with IV fluid. Seen by Dr. Beach does not think she has lupus nephritis because of absence of proteinuria. Microscopic hematuria, 0-5 cells per hpf. 3. History of chronic alcohol use, anxiety/depression or bipolar disorder: Patient is on Zoloft and Lamictal. Continue home medication. 4. DVT prophylaxis: Bilateral SCDs. She has history of bilateral vertebral artery dissection on blood thinners in the past and microscopic hematuria. Pharmacological prophylaxis contraindicated. Clinical Impression(s) from Imaging Studies Abdomen/Pelvis CT 05/31/18 10:17 IMPRESSION: Bilateral hydronephrosis right greater than left. No obstructive uropathy is seen at this time. Electronically Signed: Perry Sorenson MD at 11:31 EDT Tel [phone], Service support ,
[2018-06-02] MEDS: Sertraline 50 MG Tablet PO (10:58)
[2018-06-02] MEDS: Aspirin 81 MG TAB.CHEW PO (10:58)
[2018-06-02] MEDS: Hydroxychloroquine 200 MG Tablet 300 MG PO (11:01)
--- NOTE | 2018-06-02 11:50 | PCM.DC ---
- Discharge Diagnoses Current Active Problems: Current Active and Chronic Problems Flank pain (Acute) You will use the following diet at home:: Regular Your food should be the consistency of: Regular Discharge Activity: May not drive while taking narcotic pain medications. Call your doctor if you observe: Fever of 101 or Higher, Shortness of breath, Swelling in the ankles Allergies/Adverse Reactions: Allergies metoclopramide HCl [From Reglan] Allergy (Verified 05/31/18 09:50) Other Sulfa (Sulfonamide Antibiotics) Allergy (Verified 05/31/18 09:50) Hives prochlorperazine [From Compazine] Adverse Reaction (Verified 05/31/18 09:50) Other Medications to take at Discharge Hydroxychloroquine [Plaquenil] 200 mg PO BIDCM 10/15/13 hydrOXYzine pamoate capsule [Vistaril pamoate capsule] 50 mg PO TID PRN PRN #30 cap 05/19/18 Albuterol Sulfate [Ventolin Hfa] 1 puff INHALATION Q6H PRN PRN 05/31/18 Aspirin [Aspirin, Baby] 81 mg PO DAILY@0800 05/31/18 Cetirizine HCl/Pseudoephedrine [Zyrtec-D Tablet] 1 each PO DAILY PRN PRN 05/31/18 Ondansetron [Zofran Odt] 4 mg PO Q6H PRN PRN 05/31/18 Zolpidem Tartrate [Ambien] 10 mg PO QHS 05/31/18 ALPRAZolam [Xanax] 0.5 mg PO BID PRN PRN 06/01/18 Primary Care Physician: Care Physician,No Primary [Primary Care Provider] - Please follow up with your Primary Care Physician in: in 2 weeks Test Results: Test results from this visit will be discussed in further detail at your follow-up appointment, if applicable. Please Follow Up With: Mary Beach, DO When: for possible lupus nephritis?
--- NOTE | 2018-06-02 12:26 | CASEMGMT ---
SW met spoke w/our financial department, pt reapplied for Medicaid and as per pt it will be active soon and this hospitalization will be covered. SW met w/pt in room in regard to insurance, PCP, mental health and alcohol use. Pt confirms with pt that she did reapply for Medicaid and it should be active in the next 24-48 hours. Pt does not have a PCP but does need one, SW gave pt a list of PCP's. SW also spoke w/pt about mental health and alcohol use. Pt states she drank for the first time in 6 months, due to life stressors. Pt states just started counseling w/An [facility] for both mental health and alcohol abuse. Pt plans to follow up. SW also gave pt resources including [facility], [employer], Dental programs, and other prescription assist program information. No further needs anticipated, pt home at discharge. JUAN Singer, STOVE CARRIAGE OPERATOR
[2018-06-02 12:59] VITALS: BP 107/67; PULSE 73; RESP 18; TEMP 37.2; O2SAT 100
--- NOTE | 2018-06-02 13:00 | DCINST_ITS ---
- Discharge Diagnoses Current Active Problems: Current Active and Chronic Problems Flank pain (Acute) You will use the following diet at home:: Regular Your food should be the consistency of: Regular Discharge Activity: May not drive while taking narcotic pain medications. Call your doctor if you observe: Fever of 101 or Higher, Shortness of breath, Swelling in the ankles Allergies/Adverse Reactions: Allergies metoclopramide HCl [From Reglan] Allergy (Verified 05/31/18 09:50) Other Sulfa (Sulfonamide Antibiotics) Allergy (Verified 05/31/18 09:50) Hives prochlorperazine [From Compazine] Adverse Reaction (Verified 05/31/18 09:50) Other Medications to take at Discharge Hydroxychloroquine [Plaquenil] 200 mg PO BIDCM 10/15/13 hydrOXYzine pamoate capsule [Vistaril pamoate capsule] 50 mg PO TID PRN PRN #30 cap 05/19/18 Albuterol Sulfate [Ventolin Hfa] 1 puff INHALATION Q6H PRN PRN 05/31/18 Aspirin [Aspirin, Baby] 81 mg PO DAILY@0800 05/31/18 Cetirizine HCl/Pseudoephedrine [Zyrtec-D Tablet] 1 each PO DAILY PRN PRN Ondansetron [Zofran Odt] 4 mg PO Q6H PRN PRN 05/31/18 Zolpidem Tartrate [Ambien] 10 mg PO QHS 05/31/18 ALPRAZolam [Xanax] 0.5 mg PO BID PRN PRN 06/01/18 Primary Care Physician: Care Physician,No Primary [Primary Care Provider] - Please follow up with your Primary Care Physician in: in 2 weeks Test Results: Test results from this visit will be discussed in further detail at your follow- up appointment, if applicable. Please Follow Up With: Mary Beach, DO When: for possible lupus nephritis?
--- NOTE | 2018-06-02 13:00 | PCM.DC.SUM ---
Discharge Date and Diagnosis Date of Admission: 05/31/18 Date of Discharge: 06/02/18 - Primary Discharge Diagnosis Active and Suspected Problems Right flank pain; exact etiology unclear: No evidence of kidney stone found on CT scan. 2. History of SLE with acute kidney injury, most probably prerenal: 3. History of chronic alcohol use, anxiety/depression or bipolar disorder: - Secondary Discharge Diagnosis Chronic Problems Alcohol dependence (Chronic) Cervical neuropathy (Chronic) Systemic lupus erythematosus (Chronic) Fibromyalgia (Chronic) History of chest pain (Chronic) Hospital Course and Treatment Operations: None Summary of Care Provided: There is a 48-year-old female with uncertain history of SLE came to ER with right-sided flank pain for about the last 9 days. Patient denies hematuria but has increased frequency and urgency. She had history of kidney stone and had stent placed about [address] Stubbs as needed [facility]. She is further admitted for right flank pain associated with nausea and vomiting. She had High catheter placed for urine drainage CT finding of bilateral hydronephrosis, right greater than left. Patient has High catheter which shows clear urine. 1. Right renal/ureteric colic pain: CT abdomen and pelvis shows mild degree of right hydronephrosis and right hydroureter. Minimal degree of left hydronephrosis. Nonobstructive calculus was found. Patient right flank pain got resolved. No evidence of stone in the CT scan. Prior cholecystectomy. Patient is concerned that she might have a stone as his history of previous stone about 10 years ago as mentioned above. Pain control. UA is negative of pyuria, nitrite and LE. 2. History of SLE with acute kidney injury, most probably prerenal: Admitting BUN creatinine was 9/1.37. Repeat creatinine 0.68. Creatinine got better with IV fluid. Seen by Dr. Beach does not think she has lupus nephritis because of absence of proteinuria. Microscopic hematuria, 0-5 cells per hpf. Random urine cells mild proteinuria at 24.6 milligrams per deciliter. 3. History of chronic alcohol use, anxiety/depression or bipolar disorder: Patient is on Zoloft and Lamictal. Discharge medication reconciliation done. Prescription given for Zoloft. 4. DVT prophylaxis: Bilateral SCDs. She has history of bilateral vertebral artery dissection on blood thinners in the past and microscopic hematuria. Pharmacological prophylaxis contraindicated. Discharge medication reconciliation done. Follow-up instructions completed. Total time spent, exact 35 minutes on discharge meds reconciliation, examination, review of imaging and blood test and discussion with the patient on follow-up instructions. Discharge Activity: May not drive while taking narcotic pain medications. Call your doctor if you observe: Fever of 101 or Higher, Shortness of breath, Swelling in the ankles Home Medications: Medications to take at Discharge Hydroxychloroquine [Plaquenil] 200 mg PO BIDCM 10/15/13 hydrOXYzine pamoate capsule [Vistaril pamoate capsule] 50 mg PO TID PRN PRN #30 cap 05/19/18 Albuterol Sulfate [Ventolin Hfa] 1 puff INHALATION Q6H PRN PRN 05/31/18 Aspirin [Aspirin, Baby] 81 mg PO DAILY@0800 05/31/18 Cetirizine HCl/Pseudoephedrine [Zyrtec-D Tablet] 1 each PO DAILY PRN PRN 05/31/18 Ondansetron [Zofran Odt] 4 mg PO Q6H PRN PRN 05/31/18 Zolpidem Tartrate [Ambien] 10 mg PO QHS 05/31/18 ALPRAZolam [Xanax] 0.5 mg PO BID PRN PRN 06/01/18 Sertraline HCl [Zoloft] 50 mg PO DAILY #30 tab 06/02/18 Following Prescrptions Were Given to Patient: Sertraline HCl [Zoloft] 50 mg PO DAILY #30 tab Primary Care Physician: Care Physician,No Primary [Primary Care Provider] - Please follow up with your Primary Care Physician in: in 2 weeks Please Follow Up With: Mary Beach DO When: for possible lupus nephritis? Please Follow Up With: Rk Enamorado MD When: in 2-4 weeks for right flank pain Medical Necessity - Tobacco Use Smoking Status: Never smoker Meaningful Use Info Meaningful Use Diagnoses (Choose all that apply): None applicable Code Visit Inpatient E&M: 01141 Disch Hosp
[2018-06-02] MEDS: lamoTRIgine 25 MG Tablet PO (13:41)
[2018-06-03 09:11] LABS: ANTINUCLEAR ANTIBODIES DIRECT Negative (Negative)
== END 2018-06-02 14:20 | disposition home or self-care (01) ==
LOC: ED 14:58 → MS2 15:29
PROVIDERS: Internal Medicine Nephrology; Admitting Provider Family Medicine; Emergency Provider Emergency Medicine; Visit Provider Internal Medicine
DX: R10.9 Unspecified abdominal pain (principal); F41.9 Anxiety disorder, unspecified; F31.9 Bipolar disorder, unspecified
CPT/HCPCS: 36415; 74176; 80048; 81001; 82570; 84156; 85025; 85652; 86038; 86225; 86235; 86431; 96361; 96374; 96375; 96376; 99218; 99284; J7030; A4216; G0378; J2405

== ENCOUNTER 2018-06-05 14:01 | Emergency (ER) | payer SELFPAY ==
[2018-06-05 14:02] VITALS: BP 128/78; PULSE 104; RESP 15; TEMP 36.1; O2SAT 96; BMI 18.8
[2018-06-05 16:25] VITALS: BP 127/77; PULSE 67; RESP 16; O2SAT 97
[2018-06-05 16:53] LABS: Absolute Lymphocyte Count 1.48 X10^3/ul (0.83-4.51); Absolute Neutrophil Count 4.8 X10^3/uL (2.0-7.7); Basophil# 0.06 X10^3/uL; Basophil% 0.9 % (0-1); Eosinophil# 0.03 X10^3/uL; Eosinophils% 0.5 % (0-5); Hematocrit 41.7 % (37-47); Hemoglobin 13.7 g/dl (12.0-15.0); Lymphocyte # 1.48 X10^3/ul (4.0); Lymphocyte % 22.7 % (19-41); Mean Corp Hgb Conc 32.9 g/gl (32-36); Mean Corpuscular Hgb 30.4 pg (27.0-32.0); Mean Corpuscular Volume 92.7 fL (81-99); Mean Platelet Vol. 9.1 fl (6.2-12.0); Monocyte# 0.18 X10^3/uL; Monocyte% 2.8 % (0-10); Neutrophil # 4.77 X10^3/uL (2.7-7.7); Neutrophil % 72.9 % (47-70); Platelet Count 401 K/mm3 (150-450); RBC Distribution Width CV 13.8 % (11.6-14.6); RBC Distribution Width SD 46.7 fl (35.1-43.9); White Blood Count 6.5 K/mm3 (4.4-11.0)
[2018-06-05 17:01] LABS: Anion Gap 14 (5-15); BUN 10 mg/dL (7-18); BUN/Creat Ratio 15.3 RATIO (10-20); Calcium,Total 8.1 mg/dL (8.5-10.1); Chloride 105 mmol/L (98-107); Creatinine, Serum 0.66 mg/dL (0.55-1.02); EST Glomerular Filtration Rate 103 mL/min (>60); Est Glom Filt Rate - Afr Amer 125 mL/min (>60); Estimated Creatinine Clearance 94.57 ml/min; Glucose 78 mg/dL (74-106); Potassium 3.8 mmol/L (3.5-5.1); Sodium Level 142 mmol/L (136-145)
[2018-06-05 17:07] LABS: POSITIVE COUNT NO; POSITIVE DIFFERENTIAL NO; POSITIVE MORPHOLOGY NO
[2018-06-05 17:39] LABS: Mucous, Urine 0 SEEN /hpf (<or=2+); Red Blood Cells-Urine 0 SEEN /hpf (0-5)
[2018-06-05 17:46] LABS: Pregnancy, Serum, hCG Quali. NEGATIVE Negative (0-9 Nonpreg)
[2018-06-05 17:47] LABS: Color, Urine Yellow (Yellow); Glucose, Dipstick Normal (Normal); Ketone-Dipstick 50 mg/dl (Negative); Leukocyte Esterase-Dipstick 25 /ul (Negative); Nitrite-Dipstick Positive (Negative); Occult Blood-Urine 25 /ul (Negative); Protein-Dipstick Negative (Negative); Urine Bilirubin Dipstick Negative (Negative); Urine Clarity Sl. Cloudy (Clear); Urine Urobilinogen Normal (Normal)
--- NOTE | 2018-06-05 18:03 | ED.RN ---
Dr. Norwood aware of blood alcohol 356
[2018-06-05 18:23] LABS: Amphetamine Urine VISTA NEGATIVE (<1000 ng/mL); Barbiturate Urine VISTA NEGATIVE (< 200 ng/mL); Benzodiazepine Urine VISTA NEGATIVE (< 200 ng/mL); Cocaine Urine VISTA NEGATIVE (< 300 ng/mL); Ecstacy Urine VISTA NEGATIVE (< 500 ng/mL); Methadone Urine VISTA NEGATIVE (< 300 ng/mL); PCP Urine VISTA NEGATIVE (< 25 ng/mL); THC Urine VISTA NEGATIVE (< 50 ng/mL); Vista UDS pH Range 6
[2018-06-05 18:25] VITALS: BP 127/86; PULSE 71; RESP 16; O2SAT 98
[2018-06-05 18:32] LABS: Bacteria 3+ /hpf (None Seen); Squamous Epithelial Cells - UA 0-5 SEEN /hpf (5-10); White Blood Cells 0-5 SEEN /hpf (0-5)
[2018-06-05 22:07] VITALS: PULSE 80; RESP 15
[2018-06-05] MEDS: Cephalexin 250 MG Capsule 500 MG PO (22:42)
--- NOTE | 2018-06-05 23:08 | ED.VISSUMM ---
- ER Visit Summary Date of Service: 06/05/18 Chief Complaint: [Depression and alcohol intoxication] History of Present Illness: The patient is a 48 F [presents the emergency department stating that she is depressed especially over the last day and a half. States she was recently admitted to the hospital for detox and a started her on antidepressants however when she went to get her prescription filled her insurance did not cover it. Patient denies feeling suicidal or homicidal. She denies any hallucinations. Patient does admit to drinking vodka tonight. Patient does complain of dysuria and urgency and frequency.] Physical Examination: [HEENT-PERRLA, EOMI. Cranial nerves II through XII grossly intact. TMs clear. Mucous membranes moist. No adenopathy. Cardiovascular-regular rate and rhythm without murmur or ectopy Lungs-clear to auscultation, chest wall stable without crepitus or subcu emphysema Abdomen-normoactive bowel sounds, soft, nontender, no rebound or rigidity, no peritoneal signs. Extremities-intact ?4, normal range of motion, normal pulses, atraumatic] Test Results: [CBC with differential obtained showed a white count 6.5, hemoglobin 13.7, hematocrit 42, platelets 4 1. Chemistries unremarkable. Urinalysis was positive for 25 leukocyte esterase positive for nitrites, 0-5 WBCs, +3 bacteria. HCG was negative. Toxicology screen was negative. Alcohol was 356.] Emergency Department Course and Treatment: [Patient will need to be observed until her alcohol level normalizes. Patient's mother is unwilling to take her home at this time. CARE patient will be turned over to evening physician awaiting normalization of alcohol and reevaluation.] Treatment Plan: [Normalization of alcohol and possible evaluation by crisis if the patient chooses to be seen. Patient not currently suicidal.] Disposition: [Pending] Impression: [Depression Alcohol intoxication] This note was generated with [employer] dictation software. It may contain incorrect words, spelling, and punctuation that were not noted in review of the chart prior to signing ED Disposition - Plan for ED Patient: Chief Complaint: Depression Referrals: Care Physician,No Primary [Primary Care Provider] -
[2018-06-06 00:55] VITALS: BP 108/66; PULSE 82; RESP 18; O2SAT 96
--- NOTE | 2018-06-06 01:50 | ED.RN ---
pt is here for depression and being drunk. She is not suicidal. refuses suicidal ideation. mental health assessment not complete. initiated per protocol. not ordered.
[2018-06-06 02:00] VITALS: RESP 16
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
--- NOTE | 2018-06-06 05:00 | ED.DEP ---
ED Disposition - Plan for ED Patient: Disposition: Home or Assisted Living Chief Complaint: Depression Instructions: ED Alcohol Intoxication, ED Depression Referrals: Counseling,Center [GROUP OF PHYSICIANS] - Keep Norberto appointment
[2018-06-06 05:30] VITALS: PULSE 80; RESP 16; O2SAT 99
== END 2018-06-06 05:31 | disposition home or self-care (01) ==
PROVIDERS: Emergency Provider Emergency Medicine
DX: F32.9 Major depressive disorder, single episode, unspecified (principal); F10.129 Alcohol abuse with intoxication, unspecified; Y90.8 Blood alcohol level of 240 mg/100 ml or more; R30.0 Dysuria; M79.7 Fibromyalgia; M32.9 Systemic lupus erythematosus, unspecified
CPT/HCPCS: 80048; 80307; 80320; 81001; 84703; 85025; 87086; 87088; 87186; 99282; G0480

== ENCOUNTER 2018-10-28 08:51 | Emergency (ER) | payer MEDICAID, SELFPAY ==
[2018-10-28 08:53] VITALS: BP 99/69; PULSE 118; RESP 16; TEMP 36.6; O2SAT 97; BMI 19.4
--- NOTE | 2018-10-28 09:07 | CT_ITS ---
STUDY: CT ABDOMEN AND PELVIS WITHOUT CONTRAST REASON FOR EXAM: Female, 48 years old. Right flank pain with history of kidney stones RADIATION DOSAGE (If Supplied By Facility): CTDIvol = ( 6.09 ) mGy, DLP = ( 305.76 ) mGycm TECHNIQUE: Transaxial images were obtained from the dome of the diaphragm to the symphysis pubis without oral contrast, and without intravenous contrast. Sagittal and coronal images were reconstructed. Individualized dose optimization techniques were used for this CT. COMPARISON: 05/31/2018 FINDINGS: The visualized lung bases are unremarkable. The visualized portions of the heart are within normal limits. Normal liver. Gallbladder is surgically absent with expected mild prominence of the extrahepatic more than intrahepatic biliary tree. Normal spleen. Normal pancreas. Normal bilateral adrenal glands. Normal right kidney. Normal left kidney. Normal visualized stomach. Normal small intestine. Mild fecal retention throughout the colon but no colon wall thickening. There is non-visualization of the appendix. Mild scattered atherosclerosis of the abdominal aorta. Normal inferior vena cava. Normal retroperitoneum. Normal urinary bladder. There is absence of the uterus consistent with a prior hysterectomy. Normal abdominal wall. Normal osseous structures. CT/Abdomen/Pelvis without Cont IMPRESSION: 1. No hydronephrosis or urinary tract calculi. 2. Hysterectomy, cholecystectomy, nonvisualized appendix. 3. Mild fecal retention. Electronically Signed: Vitaly Lundberg MD at 9:47 EST , Service support ,
[2018-10-28] MEDS: Morphine 4 MG/ML Syringe IV (09:17)
[2018-10-28] MEDS: proMETHazine 25 MG/ML Syringe 6.25 MG IV ×2 (09:17→11:31)
[2018-10-28] MEDS: 0.9% Normal Saline 1,000 ML 125 ML IV (09:17)
[2018-10-28] MEDS: Ketorolac 30 MG/ML Syringe IV (09:17)
[2018-10-28 09:21] LABS: Absolute Lymphocyte Count 0.93 X10^3/ul (0.83-4.51); Basophil# 0.03 X10^3/uL; Basophil% 0.2 % (0-1); Hemoglobin 13.6 g/dl (12.0-15.0); Lymphocyte # 0.93 X10^3/ul (4.0); Lymphocyte % 6.5 % (19-41); Mean Corp Hgb Conc 32.4 g/gl (32-36); Mean Corpuscular Hgb 29.1 pg (27.0-32.0); Mean Corpuscular Volume 89.7 fL (81-99); Mean Platelet Vol. 9.7 fl (6.2-12.0); Monocyte# 0.25 X10^3/uL; Monocyte% 1.8 % (0-10); Neutrophil # 12.97 X10^3/uL (2.7-7.7); Neutrophil % 91.4 % (47-70); Platelet Count 363 K/mm3 (150-450); RBC Distribution Width SD 46.1 fl (35.1-43.9); Red Blood Count 4.68 M/mm3 (4.2-5.4); White Blood Count 14.2 K/mm3 (4.4-11.0)
[2018-10-28 09:22] LABS: POSITIVE COUNT NO; POSITIVE DIFFERENTIAL NO; POSITIVE MORPHOLOGY NO
[2018-10-28 09:28] LABS: Anion Gap 13 (5-15); BUN 22 mg/dL (7-18); Calcium,Total 8.3 mg/dL (8.5-10.1); Chloride 103 mmol/L (98-107); Creatinine, Serum 1.05 mg/dL (0.55-1.02); EST Glomerular Filtration Rate 60 mL/min (>60); Est Glom Filt Rate - Afr Amer 72 mL/min (>60); Estimated Creatinine Clearance 61.36 ml/min; Glucose 185 mg/dL (74-106); Potassium 3.9 mmol/L (3.5-5.1); Sodium Level 137 mmol/L (136-145)
[2018-10-28 10:23] LABS: Bacteria 0 SEEN /hpf (None Seen); Mucous, Urine 0 SEEN /hpf (<or=2+)
[2018-10-28 10:26] LABS: Color, Urine Yellow (Yellow); Glucose, Dipstick Normal (Normal); Leukocyte Esterase-Dipstick 25 /ul (Negative); Nitrite-Dipstick Negative (Negative); Occult Blood-Urine 150 /ul (Negative); Protein-Dipstick 15 mg/dl (Negative); Specific Gravity, Urine 1.025 (1.002-1.030); Urine Bilirubin Dipstick Negative (Negative); Urine Clarity Sl. Cloudy (Clear); Urine Urobilinogen Normal (Normal)
[2018-10-28 10:32] LABS: Ketone-Dipstick 150 mg/dl (Negative)
[2018-10-28 10:34] LABS: Red Blood Cells-Urine 0-5 SEEN /hpf (0-5); Squamous Epithelial Cells - UA 0-5 SEEN /hpf (5-10); White Blood Cells 10-25 SEEN /hpf (0-5)
[2018-10-28 10:51] VITALS: BP 98/56; PULSE 98; RESP 16; TEMP 37.4; O2SAT 100
--- NOTE | 2018-10-28 11:02 | ED.DCSUM_ITS ---
- ER Visit Summary Date of Service: 10/28/18 Chief Complaint: [Right-sided flank pain] History of Present Illness: The patient is a 48 F presents to the emergency department complaint of right-sided flank pain that started 3 days ago. Patient's had nausea and vomiting about every 30 minutes. Patient also complains of dysuria. She denies any blood in her urine. Patient has had kidney stones before and wonders if she is had a kidney stone. Patient apparently was seen by her primary care physician and was referred to the emergency department a couple of days ago but she decided to wait it out. She denies any fevers at home. Patient tells me she is a recovering alcoholic and has been clean for about 5 months. Patient also has history of lupus.] Patient rates her pain a 10 out of 10. Patient tells me she has had prior appendectomy, cholecystectomy, and hysterectomy. Physical Examination: [HEENT-PERRLA, EOMI. Cranial nerves II through XII grossly intact. TMs clear. Mucous membranes moist. No adenopathy. Cardiovascular-regular rate and rhythm without murmur or ectopy Lungs-clear to auscultation, chest wall stable without crepitus or subcu emphysema Abdomen-normoactive bowel sounds, soft. Patient has a tenderness over the right lower quadrant and some CVA tenderness on the right. There is no rebound, rigidity, or perineal signs. Extremities-intact ?4, normal range of motion, normal pulses, atraumatic] Test Results: [CBC with differential showed a slightly elevated white count of 14.2, hemoglobin 13.6, hematocrit 42, platelets 363. Chemistries unremarkable. Urinalysis was positive for 150 ketones and 10-[address] scan of the abdomen pelvis without contrast showed nothing acute.] Emergency Department Course and Treatment: [Patient was started on Rocephin 1 g IV. She was given Phenergan and morphine in the department she felt significantly improved. Patient had no further vomiting.] Treatment Plan: [Patient will be started on Cipro as well as Phenergan and given a prescription for [place] for pain.] Disposition: [Discharged home in stable condition. Patient advised to return if persistent vomiting, worsening pain, fever, dehydration, or condition should worsen anyway] Impression: [UTI-suspect early pyelonephritis] This note was generated with [employer] software. It may contain incorrect words, spelling, and punctuation that were not noted in review of the chart prior to signing ED Disposition - Plan for ED Patient: Referrals: Raghavendra Pierre MD [Primary Care Provider] -
--- NOTE | 2018-10-28 11:04 | DCINST.ED_ITS ---
ED Disposition - Plan for ED Patient: Instructions: ED Kidney Infec Female Prescriptions: Hydrocodone Bitart/Apap 5-325 [[place] 5MG-325MG] 1 tab PO Q4H PRN PRN 2 Days #10 tab PRN Reason: Pain proMETHazine tablet [Phenergan] 25 mg PO Q6H PRN PRN #10 tab PRN Reason: Nausea Ciprofloxacin [Cipro] 500 mg PO BID #14 tab Referrals: Raghavendra Pierre MD [Primary Care Provider] - 3-5 Days
[2018-10-28] MEDS: Ceftriaxone 1 GM/50 ML BAG IV (11:15)
[2018-10-28 12:00] VITALS: BP 110/57; PULSE 78; RESP 16; TEMP 37.3; O2SAT 99
== END 2018-10-28 12:14 | disposition home or self-care (01) ==
PROVIDERS: Emergency Provider Emergency Medicine; Family Provider Family Medicine; PCP Family Medicine
DX: N39.0 Urinary tract infection, site not specified (principal); Z90.49 Acquired absence of other specified parts of digestive tract; Z90.710 Acquired absence of both cervix and uterus
CPT/HCPCS: 74176; 80048; 81001; 85025; 87077; 87086; 87088; 87186; 96361; 96365; 96375; 96376; 99284; J7030; A4216

== ENCOUNTER 2018-11-19 03:23 | Emergency (ER) | payer MEDICAID, SELFPAY ==
[2018-11-19 03:24] VITALS: BP 130/86; PULSE 113; RESP 16; TEMP 37.2; O2SAT 97; BMI 18.1
[2018-11-19] MEDS: Ketorolac 60 MG/2 ML Vial IM (03:45)
[2018-11-19 03:48] VITALS: BP 130/86; PULSE 113; RESP 16; TEMP 37.2; O2SAT 97
[2018-11-19 04:13] LABS: Bacteria 0 SEEN /hpf (None Seen); Mucous, Urine 0 SEEN /hpf (<or=2+); White Blood Cells 0 SEEN /hpf (0-5)
[2018-11-19 04:21] LABS: Color, Urine Yellow (Yellow); Glucose, Dipstick Normal (Normal); Ketone-Dipstick 5 mg/dl (Negative); Leukocyte Esterase-Dipstick Negative /ul (Negative); Nitrite-Dipstick Negative (Negative); Occult Blood-Urine 150 /ul (Negative); Protein-Dipstick 15 mg/dl (Negative); Urine Bilirubin Dipstick Negative (Negative); Urine Clarity Sl. Cloudy (Clear); Urine Urobilinogen Normal (Normal)
[2018-11-19 04:39] LABS: Red Blood Cells-Urine 0-5 SEEN /hpf (0-5); Squamous Epithelial Cells - UA 5-10 SEEN /hpf (5-10)
[2018-11-19 04:46] VITALS: BP 130/86; PULSE 113; RESP 16; TEMP 37.2; O2SAT 97
--- NOTE | 2018-11-19 04:50 | ED.DCSUM_ITS ---
- ER Visit Summary Date of Service: 11/19/18 Chief Complaint: UTI and lupus flare History of Present Illness: The patient is a 48 F who presents with UTI symptoms and possible lupus flare. She states that she was seen on October 28 with UTI symptoms and right flank pain. She had a normal CT. She was diagnosed with a UTI. She was discharged on Cipro. She states that she did transiently improve may be for about 10 days or so. Over the last 10 days however she has developed recurrent UTI symptoms with dysuria frequency urgency. She has had fever up to 101.7. She also complains of some right side pain similar to when she was diagnosed recently. She denies any chest pain shortness of breath ligh theadedness dizziness nausea or vomiting. She states since being on the antibiotics she has also developed increased arthralgias that feels similar to prior lupus flares. Physical Examination: Initial heart rate 113 vitals otherwise normal Moist mucous membranes Heart regular rhythm tachycardia Lungs are clear Abdomen soft nontender nondistended Alert Test Results: UA shows 150 blood, 5-10 epithelial cells otherwise unremarkable. There are no leukocyte esterase or nitrites or WBCs. Emergency Department Course and Treatment: UA not consistent with cystitis. We did send a urine culture. Patient notes that when she has had similar flareups with arthralgias in the past she has had benefit from a steroid taper. She does not currently have a urology physician assistant here and her primary care physician has been managing her lupus until she is able to establish one. I advised that she follow-up closely with her primary care physician or return for any new or worsening symptoms and patient was discharged with a prednisone taper. All questions answered bedside. Patient agreeable to this plan. Treatment Plan: [] Disposition: Discharge Impression: Dysuria Lupus This note was generated with [employer] software. It may contain incorrect words, spelling, and punctuation that were not noted in review of the chart prior to signing ED Disposition - Plan for ED Patient: Referrals: Raghavendra Pierre MD [Primary Care Provider] -
--- NOTE | 2018-11-19 04:57 | ED.DEP ---
ED Disposition - Plan for ED Patient: Instructions: ED Systemic Lupus Erythematosis, ED Dysuria Uncertain Cause Prescriptions: Prednisone 10 mg PO UD #33 tab Referrals: Raghavendra Pierre MD [Primary Care Provider] -
[2018-11-19 05:01] VITALS: PULSE 97; RESP 16; O2SAT 100
== END 2018-11-19 05:01 | disposition home or self-care (01) ==
PROVIDERS: Emergency Provider Emergency Medicine; Family Provider Family Medicine; PCP Family Medicine
DX: R30.0 Dysuria (principal); R35.0 Frequency of micturition; R50.9 Fever, unspecified; M32.9 Systemic lupus erythematosus, unspecified; M25.50 Pain in unspecified joint
CPT/HCPCS: 81001; 87086; 87088; 96372; 99283

== ENCOUNTER 2018-12-03 00:42 | Observation (INO) | payer MEDICAID, SELFPAY ==
[2018-12-03] VITALS (8 sets, daily range): BP systolic 103–132; BP diastolic 61–98; PULSE 73–120; RESP 14–20; TEMP 36.8–37.3; O2SAT 93–100; BMI 17.8; BMI 18.4; BMI 18.5
--- NOTE | 2018-12-03 01:20 | CT_ITS ---
STUDY: CT ABDOMEN AND PELVIS WITHOUT CONTRAST REASON FOR EXAM: Female, 48 years old. Right flank pain RADIATION DOSAGE (If Supplied By Facility): CTDIvol = ( 13.79 ) mGy, DLP = ( 408.60 ) mGycm TECHNIQUE: Transaxial images were obtained from the dome of the diaphragm to the symphysis pubis without oral contrast, and without intravenous contrast. Sagittal and coronal images were reconstructed. Individualized dose optimization techniques were used for this CT. COMPARISON: None. FINDINGS: The visualized lung bases are unremarkable. The visualized portions of the heart are within normal limits. Normal liver. There is non-visualization of the gallbladder, which may be secondary to either contraction or a prior cholecystectomy. Normal spleen. Normal pancreas. Normal bilateral adrenal glands. Normal right kidney. Normal left kidney. Normal visualized stomach. Normal small intestine. Normal colon. There is non-visualization of the appendix. Normal abdominal aorta. Normal inferior vena cava. Normal retroperitoneum. There is a High catheter in the urinary bladder. Normal abdominal wall. Normal osseous structures. CT/Abdomen/Pelvis W IV Cont ONLY IMPRESSION: Normal unenhanced CT of the abdomen and pelvis. Electronically Signed: Humphrey Pope, at 4:13 EDT Tel , Service support ,
[2018-12-03] MEDS: Ondansetron 4 MG/2 ML Vial IV (01:48)
[2018-12-03] MEDS: Ketorolac 30 MG/ML Syringe IV (01:48)
[2018-12-03] MEDS: 0.9% Normal Saline 1,000 ML 1000 ML IV (01:48)
[2018-12-03 03:05] LABS: Absolute Lymphocyte Count 3.31 X10^3/ul (0.83-4.51); Absolute Neutrophil Count 1.9 X10^3/uL (2.0-7.7); Basophil# 0.04 X10^3/uL; Basophil% 0.7 % (0-1); Eosinophil# 0.07 X10^3/uL; Eosinophils% 1.2 % (0-5); Hematocrit 41.6 % (37-47); Lymphocyte # 3.31 X10^3/ul (4.0); Lymphocyte % 55.4 % (19-41); Mean Corp Hgb Conc 33.7 g/gl (32-36); Mean Corpuscular Hgb 29.7 pg (27.0-32.0); Mean Corpuscular Volume 88.1 fL (81-99); Mean Platelet Vol. 8.9 fl (6.2-12.0); Monocyte# 0.63 X10^3/uL; Monocyte% 10.5 % (0-10); Neutrophil # 1.92 X10^3/uL (2.7-7.7); Platelet Count 408 K/mm3 (150-450); RBC Distribution Width CV 13.7 % (11.6-14.6); RBC Distribution Width SD 43.9 fl (35.1-43.9); Red Blood Count 4.72 M/mm3 (4.2-5.4)
[2018-12-03 03:15] LABS: POSITIVE COUNT NO; POSITIVE DIFFERENTIAL NO; POSITIVE MORPHOLOGY NO
[2018-12-03 03:27] LABS: ALB/GLOB Ratio 1.1 RATIO (0.9-2.4); AST(SGOT) 35 U/L (15-37); Alanine Aminotransfer ALT/SGPT 31 U/L (13-56); Albumin, Serum 3.9 g/dL (3.2-5.0); Alkaline Phosphatase 58 U/L (45-117); Anion Gap 12 (5-15); BUN 6 mg/dL (7-18); BUN/Creat Ratio 7.7 RATIO (10-20); Calcium,Total 8.3 mg/dL (8.5-10.1); Chloride 102 mmol/L (98-107); Creatinine, Serum 0.78 mg/dL (0.55-1.02); EST Glomerular Filtration Rate 84 mL/min (>60); Est Glom Filt Rate - Afr Amer 102 mL/min (>60); Globulin 3.7 g/dL (2.2-4.2); Glucose 90 mg/dL (74-106); Potassium 3.5 mmol/L (3.5-5.1); Protein, Total 7.6 g/dL (6.4-8.2); Sodium Level 140 mmol/L (136-145)
[2018-12-03 03:37] LABS: White Blood Cells 0 SEEN /hpf (0-5)
[2018-12-03 03:41] LABS: Color, Urine Yellow (Yellow); Glucose, Dipstick Normal (Normal); Ketone-Dipstick Negative (Negative); Leukocyte Esterase-Dipstick Negative /ul (Negative); Nitrite-Dipstick Negative (Negative); Occult Blood-Urine 50 /ul (Negative); Protein-Dipstick 15 mg/dl (Negative); Specific Gravity, Urine 1.015 (1.002-1.030); Urine Bilirubin Dipstick Negative (Negative); Urine Clarity Clear (Clear); Urine Urobilinogen Normal (Normal)
[2018-12-03 03:50] LABS: Bacteria RARE /hpf (None Seen); Mucous, Urine RARE /hpf (<or=2+); Red Blood Cells-Urine 0-5 SEEN /hpf (0-5); Squamous Epithelial Cells - UA 0-5 SEEN /hpf (5-10)
[2018-12-03] MEDS: Acetaminophen 500 MG Tablet 1000 MG PO (04:09)
--- NOTE | 2018-12-03 04:48 | ED.VISSUMM ---
- ER Visit Summary Date of Service: 12/03/18 Chief Complaint: Flank pain History of Present Illness: The patient is a 48 F who presents with right flank pain. This is been present for 2 months. She has had previous hospitalizations for this without clear explanation. She also reports that over the last couple of days she has been running fever with temperature up to 103. She complains of a sensation of urinary urgency and feels like she needs to pee but is unable to do so. She has had dysuria when she is able to urinate. She denies nausea vomiting diarrhea. She does complain of some diffuse body pain myalgias and arthralgias. She has a history of lupus. I saw her recently and she did have a urine culture which was mixed organism growth below the level of infection. We treated her at that time with steroids at that time for possible lupus flare. Recently was in alcohol detox but is currently intoxicated. Physical Examination: Afebrile vitals normal Moist mucous membranes Heart regular rate and rhythm Lungs clear Abdomen soft nondistended she does have right-sided abdominal tenderness without guarding without rebound Alert Test Results: CBC CMP unremarkable. Urinalysis is not consistent with infection. CT of the abdomen and pelvis with IV contrast is normal. Emergency Department Course and Treatment: Bladder scan showed greater than 700 cc of urine. A High catheter was placed. Patient was treated with IV fluids Toradol Zofran. She states Toradol did help quite a bit with a right-sided abdominal pain but she has continuing to have diffuse lupus pain. She has requested IV pain medication multiple times while refusing oral oxycodone. Given history of lupus fevers and diffuse body pain she was given IV Solu-Medrol for possible lupus flare. Patient will be discussed with the hospitalist and admitted. Treatment Plan: [] Disposition: Admit Impression: Right flank pain Fever Lupus Urinary retention This note was generated with [employer] dictation software. It may contain incorrect words, spelling, and punctuation that were not noted in review of the chart prior to signing ED Disposition - Plan for ED Patient: Referrals: Raghavendra Pierre MD [Primary Care Provider] -
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
[2018-12-03] MEDS: Ceftriaxone 1 GM/50 ML BAG IV ×2 (06:03→21:37)
[2018-12-03] MEDS: oxyCODONE 5 MG Tablet PO (06:14)
[2018-12-03] MEDS: 0.9% NaCl Peripheral Flush Adult/Peds IV ×2 (07:01→10:31)
[2018-12-03] MEDS: LORazepam 2 MG/ML Syringe IV (07:01)
[2018-12-03] MEDS: Potassium Chloride 40 MEQ in 0.9% Normal Saline 1,000 ML 100 MEQ IV (07:07)
[2018-12-03 08:00] LABS: Amphetamine Urine VISTA NEGATIVE (<1000 ng/mL); Barbiturate Urine VISTA POSITIVE (< 200 ng/mL); Benzodiazepine Urine VISTA NEGATIVE (< 200 ng/mL); Cocaine Urine VISTA NEGATIVE (< 300 ng/mL); Ecstacy Urine VISTA NEGATIVE (< 500 ng/mL); Methadone Urine VISTA NEGATIVE (< 300 ng/mL); PCP Urine VISTA NEGATIVE (< 25 ng/mL); THC Urine VISTA NEGATIVE (< 50 ng/mL); Vista UDS pH Range 7
--- NOTE | 2018-12-03 08:22 | NURSING ---
Pharmacy states they dose ethyl alcohol at 10ml PO TID (With meals). I clarified with MD that he would like 60ml PO TID (With meals). The MD confirmed this at this time, asks that I will enter the order.
[2018-12-03 09:04] LABS: HIV - WCH Non-Reactive (Nonreactive)
[2018-12-03] MEDS: Hydroxychloroquine 200 MG Tablet PO ×2 (09:24→16:12)
[2018-12-03] MEDS: Multivitamins,Ther W-Minerals Tablet 1 TABLET PO (09:24)
[2018-12-03] MEDS: Aspirin 81 MG TAB.CHEW PO (09:24)
[2018-12-03] MEDS: Folic Acid 1 MG Tablet PO (09:25)
[2018-12-03] MEDS: Thiamine Hydrochloride 100 MG Tablet PO ×2 (09:25→16:12)
[2018-12-03] MEDS: Enoxaparin 40 MG/0.4 ML Syringe SC (09:25)
[2018-12-03] MEDS: LORazepam 1 MG Tablet 2 MG PO ×2 (12:32→20:53)
--- NOTE | 2018-12-03 15:49 | NURSING ---
Pt reports mother buys her alcohol.
[2018-12-03] MEDS: hydrOXYzine PAM 25 MG Capsule 50 MG PO (16:12)
[2018-12-03] MEDS: Ondansetron ODT 4 MG Tablet 8 MG PO (16:12)
--- NOTE | 2018-12-03 20:24 | NURSING ---
Patient on the phone arguing with boyfriend about rehab and a film process operator talking loud and yelling into the phone. Electrical Instrument Repairer got patient a meal as she requested.
[2018-12-03] MEDS: DOXEPIN HCL 50 MG CAPSULE PO (21:43)
[2018-12-04] MEDS: LORazepam 1 MG Tablet 2 MG PO ×2 (03:51→08:41)
[2018-12-04 03:55] VITALS: BP 96/51; PULSE 96; RESP 18; TEMP 36.8; O2SAT 98
[2018-12-04] MEDS: Folic Acid 1 MG Tablet PO (07:37)
[2018-12-04] MEDS: Hydroxychloroquine 200 MG Tablet PO (07:37)
[2018-12-04] MEDS: Aspirin 81 MG TAB.CHEW PO (07:37)
[2018-12-04] MEDS: Thiamine Hydrochloride 100 MG Tablet PO (07:37)
[2018-12-04] MEDS: Multivitamins,Ther W-Minerals Tablet 1 TABLET PO (07:37)
--- NOTE | 2018-12-04 08:00 | PCM.PN.HOSP ---
Vitals/I&O's: Vital Signs Temp Pulse Resp BP Pulse Ox 98.3 F 96 18 96/51 L 98 12/04/18 03:55 12/04/18 03:55 12/04/18 03:55 12/04/18 03:55 12/04/18 03:55 Oxygen Delivery Method Room Air Weight: 55.1 kg Body Mass Index (BMI) 18.4 Intake and Output for Last 24 Hours 12/02/18 12/03/18 12/04/18 22:59 23:59 23:59 Intake Total 240 / 240 Output Total 0 / 0 Balance 240 / 240 Laboratory Results 12/03/18 06:28: HIV 1&2 Antibody Non-Reactive 12/03/18 07:30: Urine Opiates Screen NEGATIVE, Urine Methadone Screen NEGATIVE, Ur Barbiturates Screen POSITIVE H, Ur Phencyclidine Scrn NEGATIVE, Ur Amphetamines Screen NEGATIVE, U Methamphetamin-MDMA NEGATIVE, U Benzodiazepines Scrn NEGATIVE, Urine Cocaine Screen NEGATIVE, U Cannabinoids Screen NEGATIVE Current Medications Alcohol (Ethyl Alcohol) 60 ml PO Q8 [facility] Last Admin: 12/04/18 05:41 Dose: 60 ml Aspirin (Aspirin, Baby) 81 mg PO DAILY@0800 [facility] Last Admin: 12/04/18 07:37 Dose: 81 mg Doxepin HCl (Doxepin Hcl) 50 mg PO QHS [facility] Last Admin: 12/03/18 21:43 Dose: 50 mg Enoxaparin Sodium (Lovenox) 40 mg SC DAILY@1000 [facility] Last Admin: 12/03/18 09:25 Dose: 40 mg Folic Acid (Folic Acid) 1 mg PO DAILY@0800 [facility] Stop: 12/05/18 08:01 Last Admin: 12/04/18 07:37 Dose: 1 mg Furosemide (Lasix) 60 mg IV X1 ONE Stop: 12/04/18 08:00 Hydroxychloroquine Sulfate (Plaquenil) 200 mg PO BIDCM [facility] Last Admin: 12/04/18 07:37 Dose: 200 mg Hydroxyzine Pamoate (Vistaril Pamoate Capsule) 50 mg PO TID PRN PRN PRN Reason: ANXIETY Last Admin: 12/03/18 16:12 Dose: 50 mg Ceftriaxone Sodium (Rocephin) 1 gm in 50 mls @ 100 mls/hr IV Q24@2200 [facility] Last Admin: 12/03/18 21:37 Dose: 100 mls/hr Sodium Chloride () 250 mls @ 15 mls/hr IV .[id number] PRN PRN Reason: SALINE FLUSH Lorazepam (Ativan) 2 mg PO Q2H PRN PRN; Protocol PRN Reason: CIWA score > 8 but <15 Last Admin: 12/04/18 03:51 Dose: 2 mg Lorazepam (Ativan) 2 mg PO UD PRN; Protocol PRN Reason: CIWA score >/=15. Lorazepam (Ativan) 2 mg IV Q2H PRN PRN; Protocol PRN Reason: CIWA score > 8 but <15 Last Admin: 12/03/18 07:01 Dose: 2 mg Lorazepam (Ativan) 2 mg IV UD PRN; Protocol PRN Reason: CIWA score >/=15. Magnesium Hydroxide (Milk Of Magnesia) 30 ml PO DAILY PRN PRN PRN Reason: Constipation Multivitamins/Minerals ([facility]erals) [facility] Admin: 12/04/18 07:37 Dose: 1 tablet Ondansetron HCl (Zofran Odt) 8 mg PO Q8H PRN PRN PRN Reason: NAUSEA Last Admin: 12/03/18 16:12 Dose: 8 mg Sodium Chloride () 5 - 15 ml IV UD PRN PRN Reason: SALINE FLUSH Last Admin: 12/03/18 10:31 Dose: 10 ml Thiamine HCl (Vitamin B1) 100 mg PO BIDCM [facility] Stop: 12/05/18 17:01 Last Admin: 12/04/18 07:37 Dose: 100 mg Medical Necessity - Tobacco Use Smoking Status: Never smoker Assessment/Plan All Active Problems Alcohol withdrawal (Acute) Flank pain (Acute) Physical exam, pre-employment (Acute) Pyelonephritis (Resolved)
[2018-12-04 09:00] VITALS: RESP 18
--- NOTE | 2018-12-04 09:02 | DCINST_ITS ---
You will use the following diet at home:: No restrictions Discharge Activity: May not drive while taking narcotic pain medications. Allergies/Adverse Reactions: Allergies metoclopramide HCl [From Reglan] Allergy (Verified 12/03/18 00:47) Other Sulfa (Sulfonamide Antibiotics) Allergy (Verified 12/03/18 00:47) Hives prochlorperazine [From Compazine] Adverse Reaction (Verified 12/03/18 00:47) Other Medications to take at Discharge Hydroxychloroquine [Plaquenil] 200 mg PO BIDCM 10/15/13 Aspirin [Aspirin, Baby] 81 mg PO DAILY@0800 05/31/18 Doxepin HCl 50 mg PO QHS 11/19/18 Hydroxyzine Pamoate [Vistaril] 50 mg PO TID PRN PRN 12/03/18 Prednisone 10 mg PO UD #33 tab 12/04/18 The following prescriptions were given: Prednisone 10 mg PO UD #33 tab Primary Care Physician: Raghavendra Pierre MD [Primary Care Provider] - Test Results: Test results from this visit will be discussed in further detail at your follow- up appointment, if applicable. Proposed Discharge Date: 12/04/18
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
[2018-12-04 09:09] VITALS: BP 116/73; PULSE 97; RESP 18; TEMP 36.8; O2SAT 97
[2018-12-04 09:46] VITALS: BP 116/73; PULSE 97; RESP 18; TEMP 36.8; O2SAT 98
[2018-12-05 09:44] LABS: HEPATITIS B SURFACE AG Negative (Negative); Hepatitis A IgM Antibody Negative (Negative); Hepatitis B Core AB IgM Negative (Negative)
[2018-12-05 09:47] LABS: Hep C Antibodies <0.1 s/co ratio (0.0-0.9)
== END 2018-12-04 09:48 | disposition home or self-care (01) ==
LOC: ED 03:43 → MS2 06:17
PROVIDERS: Admitting Provider Hospitalist; Emergency Provider Emergency Medicine; Family Provider Family Medicine; PCP Family Medicine; Visit Provider Internal Medicine
DX: R50.9 Fever, unspecified (principal); M79.7 Fibromyalgia; Z23 Encounter for immunization; M32.9 Systemic lupus erythematosus, unspecified; R30.0 Dysuria; F10.229 Alcohol dependence with intoxication, unspecified; R33.9 Retention of urine, unspecified; F10.239 Alcohol dependence with withdrawal, unspecified; Z91.410 Personal history of adult physical and sexual abuse; I25.2 Old myocardial infarction; G62.9 Polyneuropathy, unspecified; Z79.82 Long term (current) use of aspirin; Z79.899 Other long term (current) drug therapy
CPT/HCPCS: 36415; 51702; 74177; 80053; 80074; 80307; 80320; 81001; 85025; 86703; 87086; 96361; 96365; 96366; 96367; 96372; 96375; 99218; 99285; J7030; Q9967; 90686; A4216; G0378; G0480; J2405; J2930

== ENCOUNTER 2019-06-25 13:00 | Outpatient (RCR) | payer MEDICAID, SELFPAY ==
[2018-12-03 06:35] VITALS: BMI 18.4
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
--- NOTE | 2019-06-20 16:49 | HP.OTCOM_ITS ---
OT Communication Note 06/20/[address] VANDANA LOPES OT further completed interview at first session for clarification on injury. Jennifer explained injury occurred on 05/18/19 and surgery 05/19/19. She noted that gym based accident occurred the 05/18/19 but had been seen at emergency room in [facility] on 05/14/19 as she regularly has had ongoing low back pain which included bulging discs. No MRI completed on 05/14/19. She did have MRI on 05/18/19. She does have past medical history significant for Lupus. OT further clarified about physical status of children. She noted triplets are about to turn 11 y/o and cognitively intact but 1/3 triplets do use w/c due to fatigue from diagnosis. She noted that due to cervical spine surgery being emergency she is in need of finding a neurosurgeon around the [place], [place] area for lumbar spine. Additionally, she noted she will be in need of data modeling specialist for AFO. OT recommended [facility] as well as discussing with PT. Jennifer further explained, that her cervical collar is to be d/c'd on Tuesday. She has FWW at home but has not been trained as she was unable to use on inpatient rehab while in [place] and previously did not need a/d. Further assessment to come from OT to maximize (I). From further interview with Jennifer, OT has added three new goals and are as follows: Jennifer to be mod I to complete making coffee with use of a/d to promote balance and safety with good safety awareness, FWW placement, and balance 4/5 trials 80% of the time by end of 2 weeks. Jennifer to be mod I to complete stove top/crock pot type meals with good safety awareness, balance, and ability to complete energy conservation techniques 4/5 trials 80% of the time by d/c. Jennifer to be mod I to complete basic laundry tasks with good spinal integrity with use of compensations 4/5 trials 80% of the time to promote (I) by d/c. Jennifer to be mod I to complete all ADls and basic IADLS of simple meal prep, home management, parenting tasks, and general transportation 4/5 trials 80% of the time to promote returning to OF by d/c. Sincerely, Raina Flores, OTR/L Contact Information
--- NOTE | 2019-06-25 15:37 | HP.PTEVAL_ITS ---
Patient's Visit Information QUINTIN CEE is a 49 year old F referred to Physical Therapy by VANDANA LOPES with a diagnosis of CERVICAL SPONDYLOSIS,WITH CORD COMPRESSION S/P FUSION. Date of Evaluation: 06/25/19 Physical Therapist: Marlon Restrepo, PT, Cert MDT, OCS - Visit Plan Frequency: 2x /Week Duration: 8 weeks Plan: S/P CERVICAL FUSION ,PLAN TO HAVE LUMBAR SURGERY. PT INTERVENTIONS PROGRESSIVE GAIT TRAINING,BALANCE, STRENGTH LLE ,ENDURANCE POSTURAL EX'S ,NUSTEP - Subjective Findings: This 49 y/o female presents to physical therapy cervical spondyosis with cord compression s/p fusion on May 19 at [facility] done by [facility] . S/P decompression anterion fusion C5-6,C6-C7.Patient intially low back pain severe MRI showed compression cervical thus had to undergo s/p emergency surgery. Patient also had affected bowel /bladder but not incontince currently . Patient had aspen collar for 5 weeks . Patient released to [facility] ~ May 24 with extensive Rehab on Jun 13 with d/c to Parents home . Patient also needs lumbar surgery ADAN . Patient prior to surgery drag foot ,weakness spasm ,but lifting weights felt pop caused spasms in legs.Patient has absent touch left knee foot. Patinet has pain in low back. Patient able to dress ,assist with bathing ,no cooking. HOME SITUATION: 1 story no sltep. Patient uses FWW in home and has w/c . Patient has contol of bowel/bladder. PMH: lupus appy,bilateral vertbral artery dissection ,paricarditis,VICTORIA,ID,HTN. SOCAIL: Boyfried 3 kids. VOCATION: unemployed - Pain Bilateral Back Pain Intensity (Out of 10): 7 Pain Intensity Range: 10 Bilateral Neck Pain Intensity (Out of 10): 2 Pain Intensity Range: 10 - Objective POSTURE: posterior pelvic tilt ,AFO left. NEURO: diminished absent touch left lower leg to foot diminished pin prick ,mytome weakness hamstring ,ankle,dimished reflexes L3-4,L4-5,L5-S1 1/3. GAIT: ambulated with fww 150 feet with SBA with left AFO. BALANCE: fair + with fww. CERVICAL ROM: MOD limited with rotation/lateral flexion /extension. MMT: quads/hams/hip ankle Right 4/5,left hip flexion 3+/5 ,hip abd 2+/5,quads/hams 0/5,ankle 0/5,BUE 4/5 shoulders 3+ /5. STAIRS: one step at time with rails - Balance Scores CATSIB Score (Max score 120 seconds): 35 - Goals Goal 1:: Patient to be Independant with HEP. Goal Time Frame: 8-12 Weeks Goal 2:: Patient to increase hamstring ,quads 2/5,ankle 2-/5 to improve gait Goal Time Frame: 8-12 Weeks Goal 3:: Patient to ambulate with least restrictive divice community distance with improved gait pattern. Goal Time Frame: 8-12 Weeks Goal 4:: Improve dynamic balance to fair+/good- to improve gaot Goal Time Frame: 8-12 Weeks Goal 5:: Patient to improve LFES score by 10 points or > to improve QOL. Goal Time Frame: 4-6 Weeks - Rehabilitation Potential Physical Therapy Diagnosis: Patient has multiple comorbities -lupus heart,TIA complexity issues with underwent s/p anterior cervical decompression and fusion C5-6 AND C6-7 along with needing lumbar surgery in the near future with patient has current impairments with decrease strength left lower leg no muscle activation of hamstrings,ankle ,quads ,poor sensation left lower leg ,decrease gait,,balance thus benifit from skilled PT Rehabilitation Potential: Good - Anticipated Interventions Patient/Client Instruction: Educate patient on: Condition, Plan of Care For the Purpose of:: To decrease pain, To improve muscle performance and motor function, To improve ability to perform ADL's, To increase tolerance to activity/condition/position, To improve performance and independence with ADL's, To improve ability of physical actions for home/community/work/leisure, To improve gait and locomotor functions, To increase flexibility/ROM, To improve endurance, To improve balance, To improve safety with gait, To improve tolerance to ADL's Therapeutic Exercise to Include: Strength training, Endurance training, Balance training, Postural training, Flexibilty training, Gait and locomotor training, Dynamic Lumbar Stabilization Comment: Discussed with patient Aquatic PT but stated will do land program For the Purpose of:: To decrease pain, To increase ROM, To improve ability to perform ADL's, To increase tolerance to activity/condition/position, To improve ability of physical actions for home/community/work/leisure, To improve health of tissue, To decrease soft tissue restriction, To increase flexibility/ROM, To improve ability to perform tasks related to life management Thank you for the opportunity to evaluate your patient. For Medicare and Medicare HMO plans, please review the plan of care and approve it. It will need to be FAXED BACK to us at [phone] for Medicare purposes. For Medicare only, by signing this I certify the plan of care. Please let me know if there are questions or concerns regarding this plan of care. Physician Signature: Date:
--- NOTE | 2019-07-26 16:48 | HP.PT.NRP ---
HP - Discharge Summary (1) - Patient Information QUINTIN CEE was seen in my office for initial evaluation on 06/25/19. The following Plan of Care was established for this patient: Initial Frequency: 2x /Week Initial Duration: 8 weeks - Anticipated Interventions Patient/Client Instruction: Educate patient on: Condition, Plan of Care For the Purpose of:: To decrease pain, To improve muscle performance and motor function, To improve ability to perform ADL's, To increase tolerance to activity/condition/position, To improve performance and independence with ADL's, To improve ability of physical actions for home/community/work/leisure, To improve gait and locomotor functions, To increase flexibility/ROM, To improve endurance, To improve balance, To improve safety with gait, To improve tolerance to ADL's Therapeutic Exercise to Include: Strength training, Endurance training, Balance training, Postural training, Flexibilty training, Gait and locomotor training, Dynamic Lumbar Stabilization For the Purpose of:: To decrease pain, To increase ROM, To improve ability to perform ADL's, To increase tolerance to activity/condition/position, To improve ability of physical actions for home/community/work/leisure, To improve health of tissue, To decrease soft tissue restriction, To increase flexibility/ROM, To improve ability to perform tasks related to life management This patient was last seen in our office . Pertinent comments regarding their Physical therapy will appear below: Patient was seen for Intial PT evaluation ,but return to hospital due to pain. At this point I will be discontinuing this patient from physical therapy. I would be happy to see this patient again in the future if found appropriate by the physician. Thank you! Marlon Restrepo, PT, Cert MDT, OCS
== END 2019-06-25 19:00 | disposition home or self-care (01) ==
LOC: PT 13:00
PROVIDERS: Family Provider Internal Medicine; PCP Internal Medicine
DX: M47.12 Other spondylosis with myelopathy, cervical region (principal); Z98.1 Arthrodesis status
CPT/HCPCS: 97110; 97162; 97166; 97530

== ENCOUNTER 2019-06-26 06:14 | Emergency (ER) | payer MEDICAID, SELFPAY ==
[2018-12-03 06:35] VITALS: BMI 18.4
[2019-06-26 06:16] VITALS: BP 100/84; PULSE 68; RESP 16; TEMP 36.9; O2SAT 99; BMI 22.1
--- NOTE | 2019-06-26 06:43 | ED.DCSUM_ITS ---
History of Present Illness Chief Complaint: Back Informant: Patient Onset: Yesterday Context: Gradual Onset Timing: Continuous Current Severity: Moderate Maximum Severity: Severe Narrative: The patient presents to the emergency department with low back pain. The patient does have a rather significant recent medical history. Just over a month ago, the patient was doing weightlifting exercises. She was using a leg press machine. She states she felt something pop in her low back and then when she reached forward, and then popped in her neck. She began to have numbness on the left side of her body and urinary incontinence. The patient presented to emergency department in [place]. There, she had multiple MRIs. This did demonstrate acute cervical compression and lumbar disc herniation. The patient had to undergo emergent cervical decompression and fusion. The plan was to bring her back in a later point for lumbar surgery. She was in inpatient rehab for 2 weeks and was discharged to home. She has been staying with her mother since her discharge. She just started physical therapy here in the area yesterday. She states she was doing heavy kettle ball lifts. Shortly after, she began to have some tightness in her low back and then significant spasm and pain. The patient does have a foot drop on the left since her prior hospitalization. She does describe tingling in her groin, but states this is been chronic. She denies any loss of bowel or bladder. She is been taking only 1 Percocet every 12 hours for the pain. The patient is in recovery for history of alcohol abuse and dependence. Prior similar symptoms: Yes Recent Illness/Hospitalization: Yes Past Medical History - Allergies and Home Meds Allergies/Adverse Reactions: Allergies metoclopramide HCl [From Reglan] Allergy (Verified 06/26/19 06:16) Other peanut Allergy (Verified 06/26/19 06:16) Anaphylaxis Sulfa (Sulfonamide Antibiotics) Allergy (Verified 06/26/19 06:16) Hives prochlorperazine [From Compazine] Adverse Reaction (Verified 06/26/19 06:16) Other Primary Care Physician: Froylan Grant MD [Primary Care Provider] - Prior records reviewed: Yes Past Medical History: - - Prior history of alcohol dependence, lupus Surgical History: appendectomy, hysterectomy, - - bilateral knee surgeries, ureteral stents Smoking Status: Never smoker - Family History Paternal Family History: Reports: Heart Disease, - - Type 1 DM; MS Maternal Family History: Reports: - - Rheumatoid arthritis; Raynaud's phenomenon. Review of Systems General: Denies: Chills, Fever, Sweats Eyes: Denies: Visual changes - bilaterally, Diplopia ENT: Denies: Rhinorrhea, Sore throat Cardiovascular: Denies: Chest pain, Palpitations Respiratory: Denies: Dyspnea, Cough, Dyspnea on exertion Gastrointestinal: Denies: Abdominal pain, Nausea, Vomiting, Diarrhea, Melena, Hematochezia Genitourinary: Denies: Dysuria, Hematuria, Frequency Musculoskeletal: Reports: Back pain. Denies: Extremity Pain Skin: Denies: Rash, Wounds Neurological: Denies: Headache, Weakness, Numbness Physical Exam Vital Signs/Narrative: Vital Signs Temp Pulse Resp BP Pulse Ox 06/26/19 06:16 98.5 F 68 16 100/84 H 99 Inital Vital Signs reviewed: Yes General: Well nourished, Well developed, No Acute Distress Head: Normocephalic, Atraumatic Eyes: Perrl, EOMI ENT: Moist mucous membranes, No rhinorrhea Neck: Supple, Nontender Cardiovascular: Regular rate, Regular rhythm, No murmurs Respiratory: No distress, CTA bilaterally, Chest nontender Abdomen: Soft, Nontender, Nondistended, Normal bowel sounds Back: Nontender, Normal Inspection Extremities: Nontender, No edema Skin: Normal color, No rash Neurological: Alert, Oriented x3, Cranial nerves II-XII grossly intact, Normal Sensation, - - Left-sided foot drop, chronic, positive straight leg raise on the left which re-creates paresthesias. Psychological: Normal affect, Normal Mood Diagnostic/Tx/Re-eval - Medical Decision Making The patient presents with an exacerbation of her pain. Clinically, she does not have symptoms of cauda equina at this time. IV was established. The patient will be treated with analgesics. As long as her pain is improved, I do feel that she can safely be discharged. The patient has recently moved back to the area and does not have outpatient neurosurgery follow-up. I will give the patient a few numbers of neurosurgeons in the area as she is likely going to need for the procedure on her lumbar spine. She is comfortable with this plan of care. Impression 1. Acute exacerbation of low back pain ED Disposition - Plan for ED Patient: Instructions: BACK SPASM, No Trauma Referrals: Grant,Froylan, MD [Primary Care Provider] - Additional Instructions: [facility] neurosurgery Call [phone]. Neuroscience [place] [facility] [address] [facility] [place] [address] [facility] spine surgery Arnie Cuenca MD [phone] 20 [facility] [address] [place] [address] [facility] of orthopedics [address] Raúl Calderon [phone]
[2019-06-26] MEDS: 0.9% Normal Saline 1,000 ML 999 ML IV (07:15)
[2019-06-26] MEDS: Orphenadrine 60 MG/2 ML Ampul IM (07:16)
[2019-06-26] MEDS: HYDROmorphone 1 MG/ML Syringe IV ×2 (07:16→09:32)
[2019-06-26] MEDS: Ondansetron 4 MG/2 ML Vial IV (07:16)
--- NOTE | 2019-06-26 07:59 | DCINST.ED_ITS ---
ED Disposition - Plan for ED Patient: Disposition: Home or Assisted Living Instructions: BACK SPASM, No Trauma Referrals: Froylan Grant MD [Primary Care Provider] - Additional Instructions: [facility] neurosurgery Call [phone]. Neuroscience [place] [facility] [address] [facility] [address] [place], [place] [id number] [place] [address] spine surgery Arnie Cuenca MD [phone] 20 [facility] 200 [place] [address] [facility] of orthopedics Dr. Raúl Calderon [phone]
--- NOTE | 2019-06-26 07:59 | ED.DEP ---
ED Disposition - Plan for ED Patient: Disposition: Home or Assisted Living Instructions: BACK SPASM, No Trauma Referrals: Froylan Grant MD [Primary Care Provider] - Additional Instructions: [facility] neurosurgery Call [phone]. Neuroscience [place] [facility] 1 [facility] [address] [place], [place] [id number] [place] [address] spine surgery Arnie Cuenca MD [phone] 20 [facility] 200 [place] [address] [facility] of orthopedics [address]. Raúl Calderon [phone]
--- NOTE | 2019-06-26 08:48 | MRI_ITS ---
STUDY: MRI CERVICAL SPINE WITHOUT CONTRAST REASON FOR EXAM: Female, 49 years old. Neck pain, incontinence TECHNIQUE: Standardized fat and water weighted pulse sequences were obtained in the sagittal and axial planes. COMPARISON: None FINDINGS: Normal foramen magnum and brainstem-cervical cord junction. Normal craniovertebral junction. Normal anterior atlantoaxial articulation. Normal odontoid process. There is straightening of the normal cervical lordosis. Normal vertebral bodies and posterior osseous elements. C2-3: Normal endplates. Normal disc height, signal and morphology. Normal central canal and intervertebral neural foramina. C3-4: Mild broad disc osteophyte complex produces mild spinal stenosis but no neural foraminal stenosis. C4-5: Normal endplates. Normal disc height, signal and morphology. Normal central canal and intervertebral neural foramina. C5-6: Status post anterior cervical discectomy and fusion with anatomic alignment and no spinal stenosis or neural foraminal stenosis. C6-7: Status post anterior cervical discectomy and fusion with anatomic alignment no spinal stenosis or neural foraminal stenosis. C7-T1: Normal endplates. Normal disc height, signal and morphology. Normal central canal and intervertebral neural foramina. Normal cervical cord. Normal visualized soft tissue structures. MRI/Spine Cervical (Routine) IMPRESSION: Status post anterior cervical discectomy and fusion from C5 through C7 with near-anatomic alignment. Mild degenerative disc disease at C3/C4. Electronically Signed: Arnie Baker MD at 13:26 EDT Tel , Service support ,
--- NOTE | 2019-06-26 08:48 | MRI_ITS ---
STUDY: MRI THORACIC SPINE WITHOUT CONTRAST REASON FOR EXAM: Female, 49 years old. Neck pain, low back pain, incontinence. TECHNIQUE: Standardized fat and water weighted pulse sequences were obtained in the sagittal and axial planes. COMPARISON: None. FINDINGS: Normal kyphosis of the thoracic spine. There is no substantial scoliosis. T1-2, T2-3, T3-4, T4-5, T5-6, T6-7, T7-8, T8-9, T9-10, T10-11, T11-12: Normal endplates. Normal disc hydration, heights and morphology of the corresponding intervertebral discs. Normal central canal and intervertebral neural foramina at the corresponding levels. Normal visualized thoracic cord. Normal conus medullaris that terminates at the . The soft tissue structures are unremarkable. MRI/Spine Thoracic (Routine) IMPRESSION: Normal unenhanced MRI examination of the thoracic spine. Electronically Signed: Arnie Baker MD at 13:49 EDT Tel , Service support ,
--- NOTE | 2019-06-26 08:48 | MRI_ITS ---
STUDY: MRI LUMBAR SPINE WITHOUT CONTRAST REASON FOR EXAM: Female, 49 years old. Low back pain, left calf weakness, incontinence TECHNIQUE: Standardized fat and water weighted pulse sequences were obtained in the sagittal and axial planes. COMPARISON: None FINDINGS: T12-L1: Normal endplates. Normal disc height, hydration and morphology. Normal bilateral facet joints. Normal central canal and bilateral lateral recesses. Normal bilateral intervertebral neural foramina. Normal lumbar lordosis. There is no substantial scoliosis. Normal conus medullaris that terminates at the L1. L1-2: Normal endplates. Normal disc height, hydration and morphology. Normal bilateral facet joints. Normal central canal and bilateral lateral recesses. Normal bilateral intervertebral neural foramina. L2-3: Normal endplates. Normal disc height, hydration and morphology. Normal bilateral facet joints. Normal central canal and bilateral lateral recesses. Normal bilateral intervertebral neural foramina. L3-4: Normal endplates. Normal disc height, hydration and morphology. Normal bilateral facet joints. Normal central canal and bilateral lateral recesses. Normal bilateral intervertebral neural foramina. L4-5: Moderate bilateral facet hypertrophy with fluid in the facet joints consistent with instability moderate ligament flavum hypertrophy. Mild broad disc protrusion produces mild spinal stenosis with mild bilateral lateral recess stenosis and mild bilateral neural foraminal stenosis. L5-S1: Mild bilateral facet hypertrophy. Mild broad disc protrusion produces mild spinal stenosis with mild left lateral recess stenosis and mild bilateral neural foraminal stenosis. Normal visualized sacral ala. Normal visualized paraspinous soft tissue structures. MRI/Spine Lumbar (Routine) IMPRESSION: Multilevel degenerative changes, as described above. Electronically Signed: Arnie Baker MD at 13:57 EDT Tel , Service support ,
--- NOTE | 2019-06-26 09:51 | NURSING ---
1200 URINE OUTPUT WITH SEARS INSERTION
[2019-06-26] MEDS: DiphenhydrAMINE 50 MG/ML Syringe 25 MG IV (10:35)
--- NOTE | 2019-06-26 14:21 | NURSING ---
CALLED CARYN SALDANA
[2019-06-26 14:31] VITALS: BP 124/83; PULSE 61; RESP 14; O2SAT 100
[2019-06-26] MEDS: fentaNYL 100 MCG/2 ML Ampul 50 MCG IV (14:50)
--- NOTE | 2019-06-26 15:21 | NURSING ---
CALLED CARYN RIVAS. PATIENT IS ACCEPTED BY DR BALLARD
--- NOTE | 2019-06-26 15:54 | NURSING ---
CALLED CARYN RIVAS. NO BED YET
--- NOTE | 2019-06-26 16:54 | NURSING ---
[facility] GEN [id number] REPORT [phone]
[2019-06-26] MEDS: Ondansetron 4 MG/2 ML Vial IM (17:23)
[2019-06-26 19:15] VITALS: BP 99/72; PULSE 68; RESP 14; RESP 16; O2SAT 99
[2019-06-26] MEDS: fentaNYL 100 MCG/2 ML Ampul 25 MCG IV (19:38)
== END 2019-06-26 19:39 | disposition home or self-care (01) ==
PROVIDERS: Emergency Provider Emergency Medicine; Family Provider Internal Medicine; PCP Internal Medicine
DX: M54.5 Low back pain (principal); M21.372 Foot drop, left foot; M32.9 Systemic lupus erythematosus, unspecified; Z88.2 Allergy status to sulfonamides; Z83.3 Family history of diabetes mellitus; Z82.49 Family history of ischemic heart disease and other diseases of the circulatory system; Z88.8 Allergy status to other drugs, medicaments and biological substances; Z90.710 Acquired absence of both cervix and uterus
CPT/HCPCS: 51702; 72141; 72146; 72148; 99285; J7030; A4216; J2405

== ENCOUNTER → 2020-04-09 | Outpatient (CLI) | payer MEDICAID, SELFPAY ==
[2020-04-09 10:29] LABS: Mucous, Urine 0 SEEN /hpf (<or=2+); White Blood Cells 0 SEEN /hpf (0-5)
[2020-04-09 10:36] LABS: Color, Urine Yellow (Yellow); Glucose, Dipstick Normal (Normal); Ketone-Dipstick 5 mg/dl (Negative); Leukocyte Esterase-Dipstick Negative /ul (Negative); Nitrite-Dipstick Negative (Negative); Occult Blood-Urine 50 /ul (Negative); Protein-Dipstick 15 mg/dl (Negative); Urine Bilirubin Dipstick Negative (Negative); Urine Clarity Clear (Clear); Urine Urobilinogen Normal (Normal)
[2020-04-09 10:42] LABS: Bacteria 1+ /hpf (None Seen); Red Blood Cells-Urine 0-5 SEEN /hpf (0-5); Squamous Epithelial Cells - UA 5-10 SEEN /hpf (5-10)
== END | disposition home or self-care (01) ==
LOC: LABSPEC 10:17
PROVIDERS: PCP Internal Medicine; Referring Provider Nurse Practitioner; Visit Provider Nurse Practitioner
DX: R10.9 Unspecified abdominal pain (principal)
CPT/HCPCS: 81001

== ENCOUNTER → 2020-06-11 | Outpatient (CLI) | payer MEDICAID, SELFPAY ==
[2020-06-11 18:21] LABS: Absolute Lymphocyte Count 2.15 X10^3/uL (0.83-4.51); Absolute Neutrophil Count 4.7 X10^3/uL (2.0-7.7); Basophil# 0.02 X10^3/uL; Basophil% 0.3 % (0-1); Eosinophil# 0.16 X10^3/uL; Hematocrit 35.9 % (37-47); Hemoglobin 11.4 g/dL (12.0-15.0); Lymphocyte # 2.15 X10^3/ul (4.0); Lymphocyte % 27.2 % (19-41); Mean Corp Hgb Conc 31.8 g/dL (32-36); Mean Corpuscular Hgb 29.5 pg (27.0-32.0); Mean Corpuscular Volume 92.8 fL (81-99); Mean Platelet Vol. 10.1 fl (6.2-12.0); Monocyte# 0.81 X10^3/uL; Monocyte% 10.3 % (0-10); NRBC Flagged by Analyzer 0 % (0-5); Neutrophil # 4.73 X10^3/uL (2.7-7.7); Neutrophil % 59.8 % (47-70); Platelet Count 275 K/mm3 (150-450); RBC Distribution Width CV 14.9 % (11.6-14.6); Red Blood Count 3.87 M/mm3 (4.2-5.4); White Blood Count 7.9 K/mm3 (4.4-11.0)
[2020-06-11 18:27] LABS: Erythrocyte Sedimentation Rate 21 mm/hr (0-20)
[2020-06-11 18:44] LABS: AST(SGOT) 14 U/L (15-37); Alanine Aminotransfer ALT/SGPT 14 U/L (13-56); Albumin, Serum 3.5 g/dL (3.2-5.0); Alkaline Phosphatase 60 U/L (45-117); Anion Gap 2 (5-15); BUN 12 mg/dL (7-18); Calcium,Total 8.7 mg/dL (8.5-10.1); Chloride 106 mmol/L (98-107); Creatinine, Serum 0.66 mg/dL (0.55-1.02); EST Glomerular Filtration Rate 101 mL/min (>60); Est Glom Filt Rate - Afr Amer 122 mL/min (>60); Globulin 3.6 g/dL (2.2-4.2); Glucose 82 mg/dL (74-106); Potassium 3.6 mmol/L (3.5-5.1); Protein, Total 7.1 g/dL (6.4-8.2); Sodium Level 139 mmol/L (136-145)
[2020-06-11 19:29] LABS: D-Dimer Quantitative (DVT/PE) 0.82 FEU/ug/m (0.27-0.49)
== END | disposition home or self-care (01) ==
LOC: LAB 17:39
PROVIDERS: PCP Internal Medicine; Visit Provider Nurse Practitioner
DX: M32.19 Other organ or system involvement in systemic lupus erythematosus (principal); R07.9 Chest pain, unspecified; R06.02 Shortness of breath; R03.0 Elevated blood-pressure reading, without diagnosis of hypertension
CPT/HCPCS: 80053; 83880; 84484; 85025; 85379; 85652; 86140

== ENCOUNTER 2020-06-12 13:09 | Observation (INO) | payer MEDICAID, SELFPAY ==
[2020-06-12 13:10] VITALS: BP 135/77; PULSE 73; RESP 20; TEMP 36.4; O2SAT 99; BMI 22.9
--- NOTE | 2020-06-12 13:33 | EKG12_ITS ---
Test Reason : CP Blood Pressure : / mmHG Vent. Rate : 067 BPM Atrial Rate : 067 BPM P-R Int : 124 ms QRS Dur : 072 ms QT Int : 412 ms P-R-T Axes : 027 024 043 degrees QTc Int : 435 ms Normal sinus rhythm Normal ECG Confirmed by MENDEZ HICKMAN, BERNARD ([id number]), city editor ANH BEARD ([id number]) on 06/16/2020 1:33:27 PM Referred By: Confirmed By:BERNARD SIMMS MD
[2020-06-12] MEDS: Aspirin 81 MG TAB.CHEW 324 MG PO (13:46)
[2020-06-12] MEDS: Morphine 4 MG/ML Syringe IV (13:47)
[2020-06-12] MEDS: Ondansetron 4 MG/2 ML Vial IV (13:47)
--- NOTE | 2020-06-12 13:49 | ED.DCSUM_ITS ---
- ER Visit Summary Date of Service: 06/12/20 Chief Complaint: Chest pain History of Present Illness: The patient is a 50 F presenting with chest pain. Patient states that this has been going on for several weeks has been intermittent and progressively worsening. She states the pain is worsened with exertion, deep breathing. She was seen by her primary care physician and had outpatient labs ordered. This showed elevated d-dimer. She was sent for outpatient CTA chest. They were unable to obtain IV access and she was sent to the emergency department. She does have a family history of PE, denies other PE/DVT risk factors. She has a history of previous NV. She is not a smoker. Physical Examination: Vitals are stable. Patient is afebrile. Alert no acute distress. HEENT exam is unremarkable. Neck is supple. Lungs are clear and equal bilaterally. Heart is regular rate and rhythm. Abdomen is soft nontender nondistended. Extremities are unremarkable. Skin is warm and dry. No focal neurologic deficit. Remainder of exam is unremarkable. Emergency Department Course and Treatment: Patient is given aspirin, morphine, Zofran. EKG is sinus rhythm rate of 67 with no acute ischemic changes. CBC shows a hemoglobin 11.1. Chemistries unremarkable other than potassium 3.4. Troponin is negative. CTA chest shows normal CTA chest examination, without a demonstrated pulmonary embolism or arterial dissection. Minimal degree of dep endent bibasilar atelectasis. On reevaluation, patient is resting comfortably. Discussed with the hospitalist for observation. Disposition: Observation Impression: Chest pain This note was generated with [employer] dictation software. It may contain incorrect words, spelling, and punctuation that were not noted in review of the chart prior to signing ED Disposition - Plan for ED Patient: Referrals: Froylan Grant MD [Primary Care Provider] -
[2020-06-12 13:53] LABS: Absolute Lymphocyte Count 2.19 X10^3/uL (0.83-4.51); Absolute Neutrophil Count 3.6 X10^3/uL (2.0-7.7); Basophil# 0.02 X10^3/uL; Basophil% 0.3 % (0-1); Eosinophil# 0.15 X10^3/uL; Eosinophils% 2.3 % (0-5); Hematocrit 35.1 % (37-47); Hemoglobin 11.1 g/dL (12.0-15.0); Lymphocyte # 2.19 X10^3/ul (4.0); Mean Corp Hgb Conc 31.6 g/dL (32-36); Mean Corpuscular Hgb 28.9 pg (27.0-32.0); Mean Corpuscular Volume 91.4 fL (81-99); Monocyte% 10.5 % (0-10); NRBC Flagged by Analyzer 0 % (0-5); Neutrophil # 3.56 X10^3/uL (2.7-7.7); Neutrophil % 53.6 % (47-70); Platelet Count 295 K/mm3 (150-450); RBC Distribution Width CV 14.7 % (11.6-14.6); RBC Distribution Width SD 49.6 fl (35.1-43.9); Red Blood Count 3.84 M/mm3 (4.2-5.4); White Blood Count 6.6 K/mm3 (4.4-11.0)
--- NOTE | 2020-06-12 14:00 | CT_ITS ---
STUDY: CTA CHEST REASON FOR EXAM: Female, 50 years old. CP. POSSIBLE PE HX OF CVA RADIATION DOSAGE (If Supplied By Facility): CTDIvol = ( 5.98 ) mGy, DLP = ( 156.68 ) mGycm TECHNIQUE: The examination was performed with the intravenous administration of IV 100mL Isovue-370. Post-processing of the angiographic images was performed, with multiplanar reformation and 3D reconstruction. Individualized dose optimization techniques were used for this CT. COMPARISON: Comparison is made with prior study dated 10/25/2011. FINDINGS: Normal enhancement of the main pulmonary artery and right and left pulmonary arteries. Normal enhancement of the bilateral peripheral pulmonary arteries. There is no demonstrated pulmonary embolism. Normal thoracic aorta and visualized great vessels. There is no demonstrated aortic dissection. Normal heart and pericardium. Normal mediastinum. Normal hilar regions. Normal visualized trachea and bronchi. The lungs are well expanded. Minimal degree of dependent bibasilar atelectasis. Normal pleura. Normal chest wall structures. Normal osseous structures. Normal visualized upper abdomen. CT/CTA Chest W/WO Contrast IMPRESSION: Normal CTA chest examination, without a demonstrated pulmonary embolism or arterial dissection. Minimal degree of dependent bibasilar atelectasis. Electronically Signed: Perry Sorenson, at 14:35 EDT , Service support ,
[2020-06-12 14:08] LABS: Anion Gap 6 (5-15); BUN 9 mg/dL (7-18); BUN/Creat Ratio 13.2 RATIO (10-20); Calcium,Total 8.6 mg/dL (8.5-10.1); Chloride 105 mmol/L (98-107); Creatinine, Serum 0.68 mg/dL (0.55-1.02); EST Glomerular Filtration Rate 98 mL/min (>60); Est Glom Filt Rate - Afr Amer 118 mL/min (>60); Estimated Creatinine Clearance 102.06 ml/min; Glucose 82 mg/dL (74-106); Potassium 3.4 mmol/L (3.5-5.1); Sodium Level 140 mmol/L (136-145)
[2020-06-12 15:16] VITALS: BP 147/67; PULSE 79; RESP 22; TEMP 37.1; O2SAT 100
[2020-06-12 15:30] VITALS: BMI 23.0
--- NOTE | 2020-06-12 15:34 | PCM.HP.STD ---
<Brijesh Spears - Last Filed: 06/12/20 16:19> Problem List (1) Chest pain Status: Acute (2) Lupus nephritis Status: Chronic (3) Lupus vasculitis Status: Chronic (4) CAD (coronary artery disease) Status: Chronic (5) Stroke Status: Chronic (6) Dissection, vertebral artery Status: Chronic (7) Alcoholism in remission Status: Chronic (8) Systemic lupus erythematosus Status: Chronic History of Present Illness Date of Admission: 06/12/20 Chief Complaint: chest pain The patient is a 50 year old F with pmhx of CAD, vasculitis and nephritis all of which she attributes to her Hx of SLE, hx of vertebral artery disection with associated CVA, former alcoholic in remission 1.5 years, who presented to the ER with chest pain and abnormal D Dimer. She was seen by her PCP today for chest pain and a d dimer was obtained, which was elevated, and she was sent to the ER. CTA chest did not show She has been having chest pain for about 1 month. This is a sharp pain in the midsternal region. It is better at rest and worth with exertion. Usually it lasts for about 30 minutes at a time. She has associated radiation into the left shoulder and neck, associated SOB and sweating, and heart racing. It is somewhat relieved by leaning forward. Today it was much worse than it has been prompting her visit to the physician. She states this feels like how it felt when she had an SD. She had an SD that was treated at a [place] hospital about 7 years ago. She states she had a cath and intervention however no stent was placed. She is not sure what intervention was done saying they roto-rooted a vessels. She has also had several episodes of pericarditis. Last episode of pericarditis was about 6 months ago - treated with colchicine. She last saw a operational meteorologist from [facility]. She also had LE edema earlier this month and was placed on a diuretic for it - currently no edema. This is complicated by other changes recently: notably a recent admission to [facility] for pancreatitis 3 weeks ago. She states that at the time this was attributed to Plaquenil and Prednisone which she takes for SLE and that these were completely discontinued at the time with no taper or alternative regimen. She states she feels as if she is having a lupus flare and has increased joint pain and malar rash during the day. She is a former alcoholic but states that she has not drank in 1.5 years. [] Past Medical History Past Medical History (Chronic Problems): Chronic Problems Alcohol dependence (Chronic) Cervical neuropathy (Chronic) Lupus nephritis (Chronic) Lupus vasculitis (Chronic) CAD (coronary artery disease) (Chronic) Stroke (Chronic) Dissection, vertebral artery (Chronic) Alcoholism in remission (Chronic) Systemic lupus erythematosus (Chronic) Fibromyalgia (Chronic) History of chest pain (Chronic) Allergies metoclopramide HCl [From Reglan] Allergy (Verified 06/12/20 13:20) Other peanut Allergy (Verified 06/12/20 13:20) Anaphylaxis Sulfa (Sulfonamide Antibiotics) Allergy (Verified 06/12/20 13:20) Hives prochlorperazine [From Compazine] Adverse Reaction (Verified 06/12/20 13:20) Other Home Medications: Ambulatory Orders Medication Instructions Recorded Hydroxychloroquine [Plaquenil] 200 mg PO BIDCM 10/15/13 Aspirin [Aspirin, Baby] 81 mg PO DAILY@0800 05/31/18 Azelastine HCl 1 spray NS BID 06/26/19 Lidocaine [Aspercreme] 1 ea TP DAILY PRN PRN 06/26/19 Montelukast Sodium [Singulair] 10 mg PO DAILY 06/26/19 Ondansetron [Zofran Odt] 4 mg PO Q4H PRN PRN 06/26/19 Oxycodone HCl/Acetaminophen 1 ea PO Q12H PRN PRN 06/26/19 [Percocet 7.5-325 mg Tablet] Sennosides [Senokotxtra] 17.2 mg PO DAILY PRN PRN 06/26/19 Amlodipine [Norvasc] 5 mg PO BID 06/12/20 Fluticasone 0.05% [Flonase Nasal 1 spray NASAL BID 06/12/20 [place]] Lorazepam [Ativan] 1 mg PO BID PRN PRN 06/12/20 Omeprazole 40 mg PO DAILY 06/12/20 Sertraline HCl [Zoloft] 100 mg PO QHS 06/12/20 cycloBENZAPRine HCl [Flexeril] 5 mg PO TID PRN PRN 06/12/20 Surgical History: appendectomy, hysterectomy, - - bilateral knee surgeries, ureteral stents Psychiatric History: Anxiety ENVIRONMENTAL SERVICES SPECIALIST History: No pertinent ENVIRONMENTAL SERVICES SPECIALIST history Lives: Alone Smoking Status: Never smoker Tobacco Use: Non-smoker Alcohol: Sober Drugs: None - *Family History Paternal History Items: Heart Disease, - - Type 1 DM; MS Maternal History Items: - - Rheumatoid arthritis; Raynaud's phenomenon. denies heart disease, stroke, cancer Review of Systems Constitutional: Denies: Chills, Fever, Weight Change HEENT: Denies: Head Aches, Sinus Congestion, Sinus Drainage Cardiovascular: Reports: Chest Pain, Edema, - - diaphoresis. Denies: Palpitations, Syncope Respiratory: Reports: Shortness of Breath. Denies: Cough, Shortness of breath at rest, Sputum production Gastrointestinal: Denies: Abdominal Pain, Diarrhea, Nausea, Vomiting Genitourinary: Denies: Dysuria Musculoskeletal: Reports: Joint Pain. Denies: Joint Tenderness Skin: Denies: Rash, Wounds Neurological: Denies: Numbness, Tingling, Focal weakness Psychiatric: Denies: Anxiety, Depression, Homicidal Ideations, Suicidal Ideations Hematologic/ Lymphatic: Denies: Easy Bruising, Easy Bleeding VTE Information - Inpt Only VTE Present on Admission: No VTE Mechan Device Prophylaxis: None VTE Pharm Prophylaxis ordered?: Yes Patient Problems: Active and Suspected Problems Chest pain (Acute) - Physical Exam Vitals/I&O's: Vital Signs Temp Pulse Resp BP Pulse Ox 98.7 F 79 22 H 147/67 H 100 06/12/20 15:16 06/12/20 15:16 06/12/20 15:16 06/12/20 15:16 06/12/20 15:16 Oxygen Delivery Method Room Air Weight: 151 lb 0.266 oz Body Mass Index (BMI) 22.9 General: Alert, Oriented x3, Cooperative HEENT: Atraumatic, PERRLA, EOMI, Normocephalic Neck: Supple, No JVD, Negative Carotid Bruits Lungs: Clear to auscultation, Normal air movement Cardiovascular: Regular rate, No murmurs Abdomen: Bowel Sounds Present, Soft, Non Tender Extremities: No edema, Capillary Refill Less than 3 Seconds Skin: No rashes, No breakdown Musculoskeletal: No Tenderness to Palpation of Joints or Extremities Neurological: Cranial nerves II-XII grossly intact Psych/Mental Status: Normal Affect, Appropriate, Alert and oriented to time, place, person, mood and affect Laboratory Results 06/12/20 13:35: WBC 6.6, RBC 3.84 L, Hgb 11.1 L, Hct 35.1 L, MCV 91.4, MCH 28.9, MCHC 31.6 L, RDW Std Deviation 49.6 H, RDW Coeff of Leeann 14.7 H, Plt Count 295, MPV 10.0, Immature Gran % (Auto) 0.300, Neut % (Auto) 53.6, Lymph % (Auto) 33.0, Donley % (Auto) 10.5 H, Eos % (Auto) 2.3, Baso % (Auto) 0.3, Absolute Neuts (auto) 3.6, Absolute Lymphs (auto) 2.19, Nucleated RBC % 0 06/12/20 13:35: Sodium 140, Potassium 3.4 L, Chloride 105, Carbon Dioxide 29.0, Anion Gap 6, BUN 9, Creatinine 0.68, Estim Creat Clear Calc 102.06, Est GFR (MDRD) Af Amer 118, Est GFR (MDRD) Non-Af 98, BUN/Creatinine Ratio 13.2, Glucose 82, Calcium 8.6, Troponin I < 0.015 Assessment/Plan All Active Problems Alcohol withdrawal (Acute) Flank pain (Acute) Chest pain (Acute) Physical exam, pre-employment (Acute) Pyelonephritis (Resolved) 1. Chest pain - elevated D dimer however negative CTA chest. D/w Dr. Sorenson no evidence of pericarditis on CTA chest either. Negative troponin, negative EKG. Hx CAD/SD with intervention in [place] however no stent placed. This is confounded by possible lupus flare/musculoskeletal pain and hx of multiple episodes of pericarditis. -Repeat EKG in AM -Obtain stress echo in AM -cycle enzymes -last pericarditis about 6 months ago treated with colchicine by inge operational meteorologist - no relief with aleve this month. -AM FLP -replace potassium 2. Hx CAD - pt on aspirin, no statin, no beta yovani, no dorothea inhibitor. Had intervention 7 years prior however no stent, pt unsure if she had balloon or thrombectomy. Request for records placed. Check AM FLP. 3. Hx SLE - reportedly hx of severe vasculitis that the patient attributes hx of nephritis, CAD, PAD, vasculitis, CVA to. Recently taken off plaquenil and prednisone. Pt states she thinks she has a lupus flare with increased joint pain and malar rash during the day. She has no machine cloth measurer - last machine cloth measurer was at [facility] saw 6 months prior however she moved back to [place] with no machine cloth measurer. She would benefit from referral to [facility] [place]. -obtain ESR/CRP -renal function intact. 4. HTN - norvasc. 5. Recent pancreatitis - attributed to plaquenil/prednisone. Obtain records from [facility] from 3 weeks prior. 6. Hx alcoholism - per pt in remission x 1.5 years. 7. 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 Beach. <Anabel Beach - Last Filed: 06/12/20 17:03> History of Present Illness Date of Admission: 06/12/20 I agree with the above and the following is a refection of my independent history and PE. The patient is a 50 year old F who presented to the ED on 06/12/2020 after going to her PCP's office c/o pleuritic CP. A d-dimer was done and was elevated so she was sent here for a CTA. CTA was neg for PE or dissection and upon review with the radiologist there were no pericardial abnormalities or pericardial effusions. She does have h/o an SD in [place] about 7 hrs ago where she states an intervention was performed but it was not stenting. The pain she is currently having is sharp and centrally located. I am not able to reproduce it with costochondral palpation. it radiates to her L neck and is associated with SOB, diaphoresis and racing of my heart. Pt does have complicated PMH as noted above. She states that she recently had pancreatitis and was admitted to [facility] and was taken off of her drugs (HCQ and prednisone) and has not been restarted. She is unable to get in to see a machine cloth measurer until Sep at [facility]. She feels that some of the sx that she is having are related to her lupus. Past Medical History Allergies metoclopramide HCl [From Reglan] Allergy (Verified 06/12/20 13:20) Other peanut Allergy (Verified 06/12/20 13:20) Anaphylaxis Sulfa (Sulfonamide Antibiotics) Allergy (Verified 06/12/20 13:20) Hives prochlorperazine [From Compazine] Adverse Reaction (Verified 06/12/20 13:20) Other Surgical History: appendectomy, hysterectomy, - Psychiatric History: Anxiety ENVIRONMENTAL SERVICES SPECIALIST History: No pertinent ENVIRONMENTAL SERVICES SPECIALIST history Lives: Alone - Smoking Status: Never smoker Tobacco Use: Non-smoker Alcohol: Sober Drugs: None Review of Systems Constitutional: Reports: Weakness, Fatigue. Denies: Anorexia, Chills, Fever, Night Sweats, Malaise, Weight Change Eyes: Denies: Blurred vision, Double vision, Drainage, Pain, Redness, Vision Change HEENT: Denies: Difficulty Hearing, Difficulty Swallowing, Dysphasia, Hard of Hearing, Head Aches, Nasal bleeding, Nasal Congestion, Sinus Congestion, Sinus Drainage, Sore Throat, Visual Changes Cardiovascular: Reports: Chest Pain, Edema, -. Denies: Claudication, Chest Pressure, Chest Tightness, Heaviness, Light Headedness, Orthopnea, Palpitations, Paroxysmal Noc. Dyspnea, Syncope Respiratory: Reports: Shortness of Breath, Shortness of breath upon exertion. Denies: Cough, Shortness of breath at rest, Sputum production, Wheezing Gastrointestinal: Denies: Abdominal Pain, Constipation, Hematemesis, Hematochezia, Nausea, Melena Genitourinary: Denies: Dysuria, Frequency, Hematuria, Hesitancy, Incontinence, Nocturia, Retention, Urgency Musculoskeletal: Reports: Joint Pain, Joint stiffness. Denies: Back Pain, Joint swelling, Joint Tenderness, Neck Pain Skin: Denies: Dryness, Jaundice, Lesions, Pruritis, Rash, Skin Changes, Wounds Neurological: Denies: Blurred vision, Double vision, Change in Speech, Slurred speech, Confusion, Difficulty swallowing, Focal weakness, Headaches, Incoordination, Numbness, Tingling, Tremor, Seizures Psychiatric: Denies: Anxiety, Depression, Homicidal Ideations, Suicidal Ideations Endocrine: Denies: Change in Body Habitus, Heat/ Cold Intolerance, Polydipsia, Polyuria Hematologic/ Lymphatic: Denies: Adenopathy, Anemia, Easy Bruising, Easy Bleeding, Petechiae, Purpura VTE Information - Inpt Only VTE Present on Admission: No VTE Mechan Device Prophylaxis: None VTE Pharm Prophylaxis ordered?: Yes - Physical Exam Vitals/I&O's: Vital Signs Temp Pulse Resp BP Pulse Ox 98.7 F 60 13 141/106 H 99 06/12/20 16:06 06/12/20 16:06 06/12/20 16:06 06/12/20 16:06 06/12/20 16:06 Oxygen Delivery Method Room Air Weight: 64 kg Body Mass Index (BMI) 21.4 General: Alert, Oriented x3, Cooperative, No apparent distress, Well developed, Well nourished HEENT: Atraumatic, PERRLA, EOMI, Normocephalic, EAC Clear Oral: Moist Mucosa, No Gingival or Mucosal Lesions/ Ulcerations Neck: Supple, No JVD, Negative Carotid Bruits, No Nuchal Rigidity, Trachea Midline, Thyroid Normal Size and Texture Lungs: Clear to auscultation, Normal air movement Cardiovascular: Regular rate, Regular Rhythm, Normal S1, Normal S2, No murmurs, No rub noted, No Gallop Abdomen: Bowel Sounds Present, Soft, Non Tender, Non-Distended, No Hepato-splenomegaly, No hernias noted Extremities: No clubbing, No cyanosis, No edema, Capillary Refill Less than 3 Seconds, No Calf Tenderness, Peripheral Pulses Normal Skin: No rashes, No breakdown Musculoskeletal: No Tenderness to Palpation of Joints or Extremities Lymphatic: No Cervical, Supraclavicular, or Inguinal Adenopathy Neurological: Cranial nerves II-XII grossly intact, Deep Tendon Reflexes 2+/4 and Symmetrical, Neuro grossly intact, Motor Exam 5/5 strength throughout Psych/Mental Status: Normal Affect, Appropriate, Alert and oriented to time, place, person, mood and affect Laboratory Results 06/12/20 13:35: WBC 6.6, RBC 3.84 L, Hgb 11.1 L, Hct 35.1 L, MCV 91.4, MCH 28.9, MCHC 31.6 L, RDW Std Deviation 49.6 H, RDW Coeff of Leeann 14.7 H, Plt Count 295, MPV 10.0, Immature Gran % (Auto) 0.300, Neut % (Auto) 53.6, Lymph % (Auto) 33.0, Donley % (Auto) 10.5 H, Eos % (Auto) 2.3, Baso % (Auto) 0.3, Absolute Neuts (auto) 3.6, Absolute Lymphs (auto) 2.19, Nucleated RBC % 0 06/12/20 13:35: Sodium 140, Potassium 3.4 L, Chloride 105, Carbon Dioxide 29.0, Anion Gap 6, BUN 9, Creatinine 0.68, Estim Creat Clear Calc 102.06, Est GFR (MDRD) Af Amer 118, Est GFR (MDRD) Non-Af 98, BUN/Creatinine Ratio 13.2, Glucose 82, Calcium 8.6, Troponin I < 0.015 Current Medications Acetaminophen (Tylenol) 650 mg PO Q6H PRN PRN PRN Reason: Pain Score 1-10/10 Amlodipine Besylate (Norvasc) 5 mg PO BID [facility] Aspirin (Aspirin, Baby) 81 mg PO DAILY@0800 [facility] Cyclobenzaprine HCl (Flexeril) 5 mg PO TID PRN PRN PRN Reason: SPASMS Enoxaparin Sodium (Lovenox) 40 mg SC DAILY@0600 [facility] Fluticasone Propionate (Flonase Nasal [place]) 1 spray NASAL BID [facility] Influenza Virus Vaccine Quadrival (Flucelvax /Fluzone ) 0.5 ml IM .ONCE ONE Stop: 06/13/20 10:01 Lorazepam (Ativan) 1 mg PO BID PRN PRN PRN Reason: ANXIETY Montelukast Sodium (Singulair) 10 mg PO DAILY [facility] Non-Formulary Medication (Omeprazole) 40 mg PO DAILY [facility] Non-Formulary Medication (Oxycodone Hcl/Acetaminophen [Percocet 7.5-325 Mg Tablet]) 1 ea PO Q12H PRN PRN PRN Reason: Pain Score 1-10/10 Non-Formulary Medication (Lidocaine [Aspercreme Lidocaine]) 1 ea TP DAILY PRN PRN PRN Reason: Pain or Fever Non-Formulary Medication (Sennosides [Senokot]) 17.2 mg PO DAILY PRN PRN PRN Reason: CONSTIPATION Ondansetron HCl (Zofran) 4 mg IV Q6H PRN PRN PRN Reason: NAUSEA Potassium Chloride (K-Dur) 40 meq PO X1 ONE Stop: 06/12/20 16:17 Sertraline HCl (Zoloft) 100 mg PO QHS [facility] Sodium Chloride () 10 - 40 ml IV UD PRN PRN Reason: SALINE FLUSH Assessment/Plan I agree with the above and the following is a refection of my independent history and PE. ASSESSMENT CP H/O CAD ?SLE--> had immunology studies done here in 05/2018 and all neg -records requested H/O Pericarditis HTN Recent Pancreatitis H/O Vert Dissection Remote EtOHism GERD Chronic Pain PLAN -cycle troponin -Stress test in am -records requested -based on previous data ? diagnosis of SLE Inpatient E&M: 39097 Init Hosp L3
[2020-06-12 16:04] VITALS: BMI 21.4
[2020-06-12 16:06] VITALS: BP 141/106; PULSE 60; RESP 13; TEMP 37.1; O2SAT 99
[2020-06-12] MEDS: Acetaminophen 325 MG Tablet 650 MG PO (17:27)
[2020-06-12] MEDS: LORazepam 1 MG Tablet PO (17:28)
[2020-06-12 17:48] LABS: CRP 3.67 mg/L (0.0-3.0)
[2020-06-12] MEDS: Ketorolac 30 MG/ML Syringe IV (18:54)
[2020-06-12] MEDS: 0.9% Saline Lock 10 ML Syringe IV (18:54)
[2020-06-12] MEDS: Enoxaparin 40 MG/0.4 ML Syringe SC (18:55)
[2020-06-12 19:03] VITALS: PULSE 75
[2020-06-12] MEDS: oxyCODONE 5 MG Tablet PO (20:07)
[2020-06-12 20:31] LABS: Erythrocyte Sedimentation Rate 13 mm/hr (0-20)
[2020-06-12 22:39] VITALS: BP 126/88; PULSE 72; RESP 20; TEMP 36.9; O2SAT 95
[2020-06-12] MEDS: Fluticasone 0.05% 1 SPRAY NASAL.SRY NASAL (22:42)
[2020-06-12] MEDS: amLODIPine 5 MG Tablet PO (22:44)
[2020-06-12] MEDS: Sertraline 100 MG Tablet PO (22:44)
[2020-06-12] MEDS: traZODone 50 MG Tablet PO (22:44)
[2020-06-13 03:02] VITALS: PULSE 63
[2020-06-13 04:52] VITALS: BP 104/79; PULSE 78; RESP 17; TEMP 37; O2SAT 99
[2020-06-13] MEDS: Aspirin 81 MG TAB.CHEW PO (05:06)
[2020-06-13] MEDS: oxyCODONE 5 MG Tablet PO ×2 (05:06→11:31)
[2020-06-13] MEDS: Acetaminophen 325 MG Tablet 650 MG PO (05:07)
--- NOTE | 2020-06-13 05:55 | EKG12_ITS ---
Test Reason : AM EKG Blood Pressure : / mmHG Vent. Rate : 068 BPM Atrial Rate : 068 BPM P-R Int : 120 ms QRS Dur : 076 ms QT Int : 404 ms P-R-T Axes : 036 051 055 degrees QTc Int : 429 ms Normal sinus rhythm Normal ECG When compared with ECG of 12-JUN-2020 13:13, MANUAL COMPARISON REQUIRED, DATA IS UNCONFIRMED Confirmed by NAVEEN HICKMAN, AMANDA ([id number]), film or videotape editor ANH BEARD ([id number]) on 06/26/2020 1:07:54 PM Referred By: DR COOPER Confirmed By:AVINASH HODGE MD
--- NOTE | 2020-06-13 05:55 | STE_ITS ---
Reason For Study: Chest Pain Stress Results Protocol: Dobutamine Stress Echo Maximum Predicted HR: 172 bpm Target HR: 146 bpm % Maximum Predicted HR: 89 % DurationHeart Rate Stage (mm:ss) (bpm) BP Comment Baseline 67 111/75Mild Chest Pain DSE 10 MCG 3:00 58 113/52Mild Chest Pain DSE 20 MCG 3:00 77 112/61Mild Chest Pain DSE 30 MCG 3:39 130 154/68Mild Chest Pain DSE 40 MCG 2:01 153 149/92Mild Chest Pain Recovery 90 110/72Mild Chest Pain Stress Duration: 11:40 mm:ss Maximum Stress HR: 153 bpm METS: 1 Baseline Echocardiogram Findings Stress Echo Wall motion Data Resting WM Intermediate WM Stress WM Interpretation Summary Dobutamine stress echocardiogram. Stress protocol: Resting EKG demonstrates normal sinus rhythm with a rate of 66 bpm normal intervals are noted resting blood pressure is 111/75 mmHg. Dobutamine was infused starting at 10 mcg/kg/min increasing in 3-minute increments to a peak of 40 mcg/kg/min. The maximum heart rate attained was 162 bpm which was 94% of maximum predicted heart rate the maximum workload was 1 metabolic equivalent. The patient maintained sinus rhythm throughout the recording. The resting blood pressure was 111/75 with a peak blood pressure 154/68 mmHg. No arrhythmias were noted and no EKG changes were noted. Stress echocardiogram. The resting echocardiogram demonstrated mildly reduced globally estimated ejection fraction of 45%. At low dose there was improvement in left ventricular systolic function and at peak there was improved contractility with near complete obliteration of the chamber. The ejection fraction was 65%. Thickening of all salinas were noted. No wall motion abnormalities were present. Conclusion: Normal dobutamine stress echocardiogram with no wall motion abnormalities. No arrhythmias noted. Ordering Physician: Brijesh Spears Referring Physician: Daljit Woodward Performed By: Belfry, Ruthy, RDCS
[2020-06-13 07:09] VITALS: PULSE 60
[2020-06-13 07:38] LABS: Anion Gap 7 (5-15); BUN 11 mg/dL (7-18); BUN/Creat Ratio 17.7 RATIO (10-20); Calcium,Total 8.3 mg/dL (8.5-10.1); Chloride 105 mmol/L (98-107); Cholesterol 172 mg/dL (200); Creatinine, Serum 0.62 mg/dL (0.55-1.02); EST Glomerular Filtration Rate 109 mL/min (>60); Est Glom Filt Rate - Afr Amer 132 mL/min (>60); Estimated Creatinine Clearance 111.94 ml/min; Glucose 91 mg/dL (74-106); High Density Lipoprotein 54 mg/dL; Potassium 3.8 mmol/L (3.5-5.1); Sodium Level 138 mmol/L (136-145); Triglycerides 108 mg/dL; Very Low Density Lipoprotein 22 mg/dL (5-40)
[2020-06-13 09:54] VITALS: BP 102/73; PULSE 103; RESP 18; TEMP 36.8; O2SAT 98
[2020-06-13] MEDS: Montelukast 10 MG Tablet PO (10:09)
[2020-06-13] MEDS: LORazepam 1 MG Tablet PO (10:09)
[2020-06-13] MEDS: Pantoprazole Sodium 40 MG Tablet PO (10:09)
[2020-06-13] MEDS: amLODIPine 5 MG Tablet PO (10:09)
[2020-06-13] MEDS: Fluticasone 0.05% 1 SPRAY NASAL.SRY NASAL (10:10)
--- NOTE | 2020-06-13 10:49 | DCINST_ITS ---
- Discharge Diagnoses Current Active Problems: Current Active and Chronic Problems Lupus nephritis (Chronic) Lupus vasculitis (Chronic) CAD (coronary artery disease) (Chronic) Stroke (Chronic) Dissection, vertebral artery (Chronic) Alcoholism in remission (Chronic) Chest pain (Acute) You will use the following diet at home:: No restrictions Your food should be the consistency of: Regular Your liquids should be the consistency of: Regular/Thin Discharge Activity: Return to Normal Activity Allergies/Adverse Reactions: Allergies metoclopramide HCl [From Reglan] Allergy (Verified 06/12/20 13:20) Other peanut Allergy (Verified 06/12/20 13:20) Anaphylaxis Sulfa (Sulfonamide Antibiotics) Allergy (Verified 06/12/20 13:20) Hives prochlorperazine [From Compazine] Adverse Reaction (Verified 06/12/20 13:20) Other Medications to take at Discharge Aspirin [Aspirin, Baby] 81 mg PO DAILY@0800 05/31/18 Azelastine HCl 1 spray NS BID 06/26/19 Lidocaine [Aspercreme Lidocaine] 1 ea TP DAILY PRN PRN 06/26/19 Montelukast Sodium [Singulair] 10 mg PO DAILY 06/26/19 Ondansetron [Zofran Odt] 4 mg PO Q4H PRN PRN 06/26/19 Oxycodone HCl/Acetaminophen [Percocet 7.5-325 mg Tablet] 1 ea PO Q12H PRN PRN 06/26/19 Sennosides [Senokot] 17.2 mg PO DAILY PRN PRN 06/26/19 Amlodipine [Norvasc] 5 mg PO BID 06/12/20 Fluticasone 0.05% [Flonase Nasal [place]] 1 spray NASAL BID 06/12/20 Lorazepam [Ativan] 1 mg PO BID PRN PRN 06/12/20 Omeprazole 40 mg PO DAILY 06/12/20 Sertraline HCl [Zoloft] 100 mg PO QHS 06/12/20 cycloBENZAPRine HCl [Flexeril] 5 mg PO TID PRN PRN 06/12/20 traZODone [Desyrel] 50 mg PO QHS 06/12/20 Acetaminophen [Tylenol Tablet] 650 mg PO Q6H PRN PRN tab 06/13/20 Ibuprofen 600 mg PO 4X/DAY #1 tab 06/13/20 The following prescriptions were given: Ibuprofen 600 mg PO 4X/DAY #1 tab Primary Care Physician: Froylan Grant MD [Primary Care Provider] - Please follow up with your Primary Care Physician in: 1 week Test Results: Test results from this visit will be discussed in further detail at your follow- up appointment, if applicable. Proposed Discharge Date: 06/13/20
--- NOTE | 2020-06-13 12:36 | PCM.DC.SUM ---
<Brijesh Spears - Last Filed: 06/13/20 12:36> Discharge Date and Diagnosis Date of Admission: 06/12/20 Date of Discharge: 06/13/20 - Primary Discharge Diagnosis Acute Problems: Active Problems Chest pain - musculoskeletal Pericarditis ruled out. - Secondary Discharge Diagnosis Chronic Problems: Chronic Problems Alcohol dependence (Chronic) Cervical neuropathy (Chronic) Lupus nephritis (Chronic) Lupus vasculitis (Chronic) CAD (coronary artery disease) (Chronic) Stroke (Chronic) Dissection, vertebral artery (Chronic) Alcoholism in remission (Chronic) Systemic lupus erythematosus (Chronic) Fibromyalgia (Chronic) History of chest pain (Chronic) Hospital Course and Treatment Imaging Results: 06/13/20 05:55 Stress Test Echo w/o Contrast [ECHO] AM (NON MEDS) Interpretation Summary Dobutamine stress echocardiogram. Stress protocol: Resting EKG demonstrates normal sinus rhythm with a rate of 66 bpm normal intervals are noted resting blood pressure is 111/75 mmHg. Dobutamine was infused starting at 10 mcg/kg/min increasing in 3-minute increments to a peak of 40 mcg/kg/min. The maximum heart rate attained was 162 bpm which was 94% of maximum predicted heart rate the maximum workload was 1 metabolic equivalent. The patient maintained sinus rhythm throughout the recording. The resting blood pressure was 111/75 with a peak blood pressure 154/68 mmHg. No arrhythmias were noted and no EKG changes were noted. Stress echocardiogram. The resting echocardiogram demonstrated mildly reduced globally estimated ejection fraction of 45%. At low dose there was improvement in left ventricular systolic function and at peak there was improved contractility with near complete obliteration of the chamber. The ejection fraction was 65%. Thickening of all [place] were noted. No wall motion abnormalities were present. Conclusion: Normal dobutamine stress echocardiogram with no wall motion abnormalities. No arrhythmias noted. CT/CTA Chest W/WO Contrast IMPRESSION: Normal CTA chest examination, without a demonstrated pulmonary embolism or arterial dissection. Minimal degree of dependent bibasilar atelectasis. Operations: None Procedures: Stress test Summary of Care Provided: Hospital course: The patient is a 50 year old F with pmhx of SLE, SLE vasculitis, DE however no stents, recurrent pericarditis, stomach ulcer, former alcohol, who presented to the ER with elevated D dimer and chest pain. The patient had been having chest pain for a month sometimes described as sharp and stabbing and other times heavy like weight on the chest. She had negative troponin and negative CTA of the chest. The EKG in the ER was normal. History was also complicated by a recent admission to [facility] for pancreatitis, and taken off methotrexate and steroids which she stated she was told caused her to have pancreatitis - she had no abdominal symptoms this presentation. She was admitted for chest pain workup. ESR was normal and CRP was slightly elevated at 3.67, and she had taken ibuprofen at home with no relief.The CTA chest did not have evidence of pericarditis nor did her stress echo, so pericarditis was ruled out. . Stress echo showed EF 45% improved to 65% during the test and no changes c/w ischemia. Troponin was negative x3. She had no EKG changes and no events on tele. She was felt to have musculoskeletal pain. She was advised to find a new scorer single as she just moved to the area for addressing her hx of lupus - of note she has had rheumatoid studies here that were negative for underlying rheumatic disease so it is not clear if she truly carries a lupus diagnosis, [facility] was recommended. She was advised to take tylenol 1000 mg TID and a short course of oxycodone for musculoskeletal pain. She will also need to follow up with her PCP in 1 week. She was discharged home in stable condition. This patient was seen by Brijesh Spears PA-C under the supervision of Doctor Mac. [] - Physical Exam Vitals/I&O's: Vital Signs Temp Pulse Resp BP Pulse Ox 98.3 F 103 H 18 102/73 98 06/13/20 09:54 06/13/20 09:54 06/13/20 09:54 06/13/20 09:54 06/13/20 09:54 Oxygen Flow Rate (L/min) 0 Oxygen Delivery Method Room Air Weight: 141 lb 1.533 oz Body Mass Index (BMI) 21.4 Intake and Output for Last 24 Hours 06/11/20 06/12/20 06/13/20 23:59 23:59 23:59 Intake Total 1010 / 1010 / Balance 1010 / 1010 General: Alert, Oriented x3, Cooperative HEENT: Atraumatic, PERRLA, EOMI, Normocephalic Neck: Supple, No JVD, Negative Carotid Bruits Lungs: Clear to auscultation, Normal air movement Cardiovascular: Regular rate, No murmurs Abdomen: Bowel Sounds Present, Soft, Non Tender Extremities: No edema, Capillary Refill Less than 3 Seconds Skin: No rashes, No breakdown Musculoskeletal: No Tenderness to Palpation of Joints or Extremities Neurological: Cranial nerves II-XII grossly intact Psych/Mental Status: Normal Affect, Appropriate Laboratory Results 06/12/20 13:35: WBC 6.6, RBC 3.84 L, Hgb 11.1 L, Hct 35.1 L, MCV 91.4, MCH 28.9, MCHC 31.6 L, RDW Std Deviation 49.6 H, RDW Coeff of Leeann 14.7 H, Plt Count 295, MPV 10.0, Immature Gran % (Auto) 0.300, Neut % (Auto) 53.6, Lymph % (Auto) 33.0, [place] % (Auto) 10.5 H, Eos % (Auto) 2.3, Baso % (Auto) 0.3, Absolute Neuts (auto) 3.6, Absolute Lymphs (auto) 2.19, Nucleated RBC % 0 06/12/20 13:35: Sodium 140, Potassium 3.4 L, Chloride 105, Carbon Dioxide 29.0, Anion Gap 6, BUN 9, Creatinine 0.68, Estim Creat Clear Calc 102.06, Est GFR (MDRD) Af Amer 118, Est GFR (MDRD) Non-Af 98, BUN/Creatinine Ratio 13.2, Glucose 82, Calcium 8.6, Troponin I < 0.015 06/12/20 13:35: ESR 13 06/12/20 13:35: C-React Prot Ext Range 3.67 H 06/12/20 17:35: Troponin I < 0.015 06/12/20 19:52: Troponin I < 0.015 06/13/20 06:45: Sodium 138, Potassium 3.8, Chloride 105, Carbon Dioxide 26.0, Anion Gap 7, BUN 11, Creatinine 0.62, Estim Creat Clear Calc 111.94, Est GFR (MDRD) Af Amer 132, Est GFR (MDRD) Non-Af 109, BUN/Creatinine Ratio 17.7, Glucose 91, Calcium 8.3 L, Triglycerides 108, Cholesterol 172, LDL Cholesterol 96, VLDL Cholesterol 22, HDL Cholesterol 54 Current Medications Acetaminophen (Tylenol) 650 mg PO Q6H PRN PRN PRN Reason: Pain Score 1-10/10 Last Admin: 06/13/20 05:07 Dose: 650 mg Documented by: Amlodipine Besylate (Norvasc) [address] [facility] Last Admin: 06/13/20 10:09 Dose: 5 mg Documented by: Aspirin (Aspirin, Baby) 81 mg PO DAILY@0800 [facility] Last Admin: 06/13/20 05:06 Dose: 81 mg Documented by: Cyclobenzaprine HCl (Flexeril) 5 mg PO TID PRN PRN PRN Reason: SPASMS Enoxaparin Sodium (Lovenox) 40 mg SC DAILY@0600 [facility] Last Admin: 06/12/20 23:17 Dose: Not Given Documented by: Fluticasone Propionate (Flonase Nasal [place]) [address] [facility] Last Admin: 06/13/20 10:10 Dose: 1 spray Documented by: Lidocaine (Lidoderm Patch) 1 patch TOPICAL DAILY PRN PRN PRN Reason: PAIN 1-10 Lorazepam (Ativan) 1 mg PO BID PRN PRN PRN Reason: ANXIETY Last Admin: 06/13/20 10:09 Dose: 1 mg Documented by: Montelukast Sodium (Singulair) [address] [facility] Last Admin: 06/13/20 10:09 Dose: 10 mg Documented by: Ondansetron HCl (Zofran) 4 mg IV Q6H PRN PRN PRN Reason: NAUSEA Oxycodone HCl (Oxyir) 5 mg PO Q6H PRN PRN PRN Reason: Pain Score 6-10/10 Last Admin: 06/13/20 11:31 Dose: 5 mg Documented by: Pantoprazole Sodium (Protonix) [address] [facility] Last Admin: 06/13/20 10:09 Dose: 40 mg Documented by: Senna (Senokot) 2 tablet PO DAILY PRN PRN PRN Reason: CONSTIPATION Sertraline HCl (Zoloft) [address] [facility] Last Admin: 06/12/20 22:44 Dose: 100 mg Documented by: Sodium Chloride () 10 - 40 ml IV UD PRN PRN Reason: SALINE FLUSH Last Admin: 06/12/20 18:54 Dose: 10 ml Documented by: Trazodone HCl (Desyrel) [address] [facility] Last Admin: 06/12/20 22:44 Dose: 50 mg Documented by: Discharge Diet: Low fat/ Low Cholesterol, 2000 mg Sodium Diet Discharge Activity: Return to Normal Activity Home Medications: Medications to take at Discharge Aspirin [Aspirin, Baby] 81 mg PO DAILY@0800 05/31/18 Azelastine HCl 1 spray NS BID 06/26/19 Lidocaine [Aspercreme Lidocaine] 1 ea TP DAILY PRN PRN 06/26/19 Montelukast Sodium [Singulair] 10 mg PO DAILY 06/26/19 Ondansetron [Zofran Odt] 4 mg PO Q4H PRN PRN 06/26/19 Oxycodone HCl/Acetaminophen [Percocet 7.5-325 mg Tablet] 1 ea PO Q12H PRN PRN 06/26/19 Sennosides [Senokot] 17.2 mg PO DAILY PRN PRN 06/26/19 Amlodipine [Norvasc] 5 mg PO BID 06/12/20 Fluticasone 0.05% [Flonase Nasal [place]] 1 spray NASAL BID 06/12/20 Lorazepam [Ativan] 1 mg PO BID PRN PRN 06/12/20 Omeprazole 40 mg PO DAILY 06/12/20 Sertraline HCl [Zoloft] 100 mg PO QHS 06/12/20 cycloBENZAPRine HCl [Flexeril] 5 mg PO TID PRN PRN 06/12/20 traZODone [Desyrel] 50 mg PO QHS 06/12/20 Acetaminophen [Pain Reliever] 1,000 mg PO TID #1 tab 06/13/20 Oxycodone [Oxyir] 5 mg PO Q6H PRN PRN 3 Days #12 tab 06/13/20 Following Prescriptions Were Given to Patient: Oxycodone [Oxyir] 5 mg PO Q6H PRN PRN 3 Days #12 tab PRN Reason: Pain Score 6-10/10 Transmission Status: Received by [id number] Acetaminophen [Pain Reliever] 1,000 mg PO TID #1 tab Primary Care Physician: Froylan Grant MD [Primary Care Provider] - Please follow up with your Primary Care Physician in: 1 week Disposition: Home Minutes spent on discharge:: 35 Patient Condition:: Stable Medical Necessity - Tobacco Use Smoking Status: Never smoker Tobacco Use: Non-smoker Meaningful Use Info Meaningful Use Diagnoses (Choose all that apply): None applicable <Darnell Mac - Last Filed: 06/13/20 14:13> Discharge Date and Diagnosis - Secondary Discharge Diagnosis Chronic Problems: Chronic Problems Alcohol dependence (Chronic) Cervical neuropathy (Chronic) Lupus nephritis (Chronic) Lupus vasculitis (Chronic) CAD (coronary artery disease) (Chronic) Stroke (Chronic) Dissection, vertebral artery (Chronic) Alcoholism in remission (Chronic) Systemic lupus erythematosus (Chronic) Fibromyalgia (Chronic) History of chest pain (Chronic) Hospital Course and Treatment Imaging Results: 06/13/20 05:55 Stress Test Echo w/o Contrast [ECHO] AM (NON MEDS) Operations: None Procedures: Stress test Summary of Care Provided: Patient seen and examined independently. Data reviewed. I agree with the above note by the physician engineering inspection assistant. The patient is a 50 year old F presents with chest pain. Patient underwent cardiac work-up including stress test that was unremarkable. Patient currently also has a history of pericarditis but no clinical evidence of that as well. Patient reports a history of lupus and is been treated for that but was told to stop that medication after found to have elevated LFTs at [facility]. All results of which were not available during this hospitalization. Told the patient she had vasculitis work-up in 2018 all that was unremarkable. She states that she has been tested positive elsewhere. Patient states that since was asking a scorer single follow-up with. I advised that she follow-up with the scorer single but told her that she could [facility] with [facility] in [place] if she wishes. I told her that is very important that this be further followed up to see if she has lupus or other some kind of connective tissue disorder. Patient was complaining of pain seen is difficult to get up. Advised high-dose acetaminophen now that her LFTs are normal, though they were normal during previous admissions here. Patient states that she is unable to take NSAIDs as she does have a history of esophageal ulcers. She was asking for something specifically to help her with her pain so she can move around. Told her that we could prescribe her a short course of oxycodone's. So we submitted the prescription and the pharmacy declined it saying that she has had prescribed by other providers and the concern for drug-seeking behavior. So patient would not be receiving narcotics for this discharge. Patient need follow-up with primary care provider to see if that would be necessary or not. Is really unclear what rheumatologic disease she has, if she actually does have 1. And also there is concerned that there may be some drug-seeking behavior as well. [] - Physical Exam Vitals/I&O's: Vital Signs Temp Pulse Resp BP Pulse Ox 36.8 C 103 H 18 102/73 98 06/13/20 09:54 06/13/20 09:54 06/13/20 09:54 06/13/20 09:54 06/13/20 09:54 Oxygen Flow Rate (L/min) 0 Oxygen Delivery Method Room Air Weight: 64 kg Body Mass Index (BMI) 21.4 Intake and Output for Last 24 Hours 06/11/20 06/12/20 06/13/20 23:59 23:59 23:59 Intake Total 1010 / 1010 270 / 270 Balance 1010 / 1010 270 / 270 General: Alert, Cooperative HEENT: Atraumatic, Normocephalic Lungs: Clear to auscultation, Normal air movement, No rhonchi, No wheeze Cardiovascular: Regular rate, Regular Rhythm, Normal S1, Normal S2, No murmurs Abdomen: Bowel Sounds Present, Soft, Non Tender, Non-Distended, No Hepato-splenomegaly Skin: No rashes, No breakdown Laboratory Results 06/12/20 13:35: ESR 13 06/12/20 13:35: C-React Prot Ext Range 3.67 H 06/12/20 17:35: Troponin I < 0.015 06/12/20 19:52: Troponin I < 0.015 06/13/20 06:45: Sodium 138, Potassium 3.8, Chloride 105, Carbon Dioxide 26.0, Anion Gap 7, BUN 11, Creatinine 0.62, Estim Creat Clear Calc 111.94, Est GFR (MDRD) Af Amer 132, Est GFR (MDRD) Non-Af 109, BUN/Creatinine Ratio 17.7, Glucose 91, Calcium 8.3 L, Triglycerides 108, Cholesterol 172, LDL Cholesterol 96, VLDL Cholesterol 22, HDL Cholesterol 54 Discharge Diet: Low fat/ Low Cholesterol, 2000 mg Sodium Diet Discharge Activity: Return to Normal Activity Disposition: Home Minutes spent on discharge:: 35 Patient Condition:: Stable Medical Necessity - Tobacco Use Smoking Status: Never smoker Tobacco Use: Non-smoker Meaningful Use Info Meaningful Use Diagnoses (Choose all that apply): None applicable OBSV E&M: 26457 Observation care discharge
== END 2020-06-13 10:50 | disposition home or self-care (01) ==
LOC: ED 13:36 → PCU 22:19
PROVIDERS: Physician Assistant; Admitting Provider Internal Medicine; Emergency Provider Emergency Medicine; PCP Internal Medicine
DX: I25.2 Old myocardial infarction (principal); M32.14 Glomerular disease in systemic lupus erythematosus; F10.21 Alcohol dependence, in remission; I25.10 Atherosclerotic heart disease of native coronary artery without angina pectoris; R06.02 Shortness of breath; M79.7 Fibromyalgia; F41.9 Anxiety disorder, unspecified; I10 Essential (primary) hypertension; Z87.19 Personal history of other diseases of the digestive system; Z86.73 Personal history of transient ischemic attack (TIA), and cerebral infarction without residual deficits; Z79.899 Other long term (current) drug therapy; Z79.82 Long term (current) use of aspirin; R07.89 Other chest pain; K21.9 Gastro-esophageal reflux disease without esophagitis; G62.9 Polyneuropathy, unspecified
CPT/HCPCS: 36415; 71275; 80048; 80061; 84484; 85025; 85652; 86140; 93005; 93017; 93350; 96374; 96375; 97802; 99218; 99285; J7030; J7040; Q9967; A4216; G0378; J2405

== ENCOUNTER 2020-09-26 01:44 | Inpatient (IN) | payer MEDICAID, SELFPAY ==
[2020-09-26] VITALS (12 sets, daily range): BP systolic 117–145; BP diastolic 83–100; PULSE 81–95; RESP 15–20; TEMP 36.6–37.1; O2SAT 94–100; BMI 21.7; BMI 21.6
--- NOTE | 2020-09-26 02:10 | ED.DCSUM_ITS ---
History of Present Illness Chief Complaint: Abd Pain Informant: Patient Narrative: Patient presents with abdominal pains. She stated she has been drinking alcohol over the last 4 days. She has diffuse abdominal pain worse in the upper. History of remote pancreatitis per patient. She thinks she may have a pancreatitis flare. She has a deep aching in her upper abdomen. Positive nausea. She had 1 [employer] hard lemonade today. Current severity is moderate. No home treatment. Denies . Previous gallbladder resection and appendectomy. No fevers or chills. - Past Medical History (1) Alcohol withdrawal Status: Acute (2) Chest pain Status: Acute (3) Flank pain Status: Acute (4) Physical exam, pre-employment Status: Acute (5) Alcohol dependence Status: Chronic (6) Alcoholism in remission Status: Chronic (7) CAD (coronary artery disease) Status: Chronic (8) Cervical neuropathy Status: Chronic (9) Dissection, vertebral artery Status: Chronic (10) Fibromyalgia Status: Chronic (11) History of chest pain Status: Chronic (12) Lupus nephritis Status: Chronic (13) Lupus vasculitis Status: Chronic (14) Stroke Status: Chronic (15) Systemic lupus erythematosus Status: Chronic Past Medical History - Allergies and Home Meds Allergies/Adverse Reactions: Allergies metoclopramide HCl [From Reglan] Allergy (Verified 09/26/20 01:49) Other peanut Allergy (Verified 09/26/20 01:49) Anaphylaxis Sulfa (Sulfonamide Antibiotics) Allergy (Verified 09/26/20 01:49) Hives prednisone Adverse Reaction (Verified 09/26/20 01:49) NEEDS FOLLOW-UP prochlorperazine [From Compazine] Adverse Reaction (Verified 09/26/20 01:49) Other Primary Care Physician: Froylan Grant MD [Primary Care Provider] - Prior records reviewed: Yes Past Medical History: - - see Problem list Surgical History: appendectomy, hysterectomy, - Lives: With Family Smoking Status: Never smoker Alcohol: Occasional Drugs: None - Family History Maternal Family History: Reports: - - Rheumatoid arthritis; Raynaud's phenomenon. denies heart disease, stroke, cancer Paternal Family History: Reports: Heart Disease, - - Type 1 DM; MS Review of Systems General: Denies: Chills, Fever, Sweats Eyes: Denies: Visual changes - bilaterally, Diplopia ENT: Denies: Rhinorrhea, Sore throat Cardiovascular: Denies: Chest pain, Palpitations Respiratory: Denies: Dyspnea, Cough, Dyspnea on exertion Gastrointestinal: Reports: Abdominal pain, Nausea. Denies: Vomiting, Diarrhea, Melena, Hematochezia Genitourinary: Denies: Dysuria, Hematuria, Frequency Musculoskeletal: Denies: Back pain, Extremity Pain Skin: Denies: Rash, Wounds Neurological: Denies: Headache, Weakness, Numbness Physical Exam Vital Signs/Narrative: Vital Signs Temp Pulse Resp BP Pulse Ox 09/26/20 01:45 98.6 F 94 18 145/87 H 97 General: Well nourished, Well developed, No Acute Distress Head: Normocephalic, Atraumatic Eyes: Perrl, EOMI ENT: Moist mucous membranes, No rhinorrhea Neck: Supple, Nontender Cardiovascular: Regular rate, Regular rhythm, No murmurs Respiratory: No distress, CTA bilaterally, Chest nontender Abdomen: Soft, Nondistended, Normal bowel sounds, Tender - diffuse tenderness worse epigastric without guarding or rebound. No masses. Back: Nontender, Normal Inspection Extremities: Nontender, No edema Skin: Normal color, No rash Neurological: Alert, Oriented x3, Cranial nerves II-XII grossly intact, Normal Strength, Normal Sensation Psychological: Normal affect, Normal Mood Diagnostic/Tx/Re-eval - Medical Decision Making Patient given IV fluids morphine Zofran. Lab work obtained. Lab work shows evidence of acute pancreatitis with a lipase greater than the thousand. She does have some elevation in her LFTs secondary to alcohol induced pancreatitis as well. Patient has not had vomiting here. Given second dose of morphine. At this time I feel she will need to be admitted for further evaluation and treatment of her keratitis. ED Disposition - Plan for ED Patient: Disposition: [facility] Diagnosis: Pancreatitis, Alcoholism
[2020-09-26] MEDS: 0.9% Normal Saline 1,000 ML 1000 ML IV (02:25)
[2020-09-26] MEDS: Morphine 4 MG/ML Syringe IV ×2 (02:25→03:07)
[2020-09-26] MEDS: Ondansetron 4 MG/2 ML Vial IV ×2 (02:25→15:34)
[2020-09-26 02:35] LABS: Absolute Lymphocyte Count 1.25 X10^3/uL (0.83-4.51); Absolute Neutrophil Count 10.4 X10^3/uL (2.0-7.7); Basophil# 0.04 X10^3/uL; Basophil% 0.3 % (0-1); Eosinophil# 0.01 X10^3/uL; Eosinophils% 0.1 % (0-5); Hematocrit 43.9 % (37-47); Hemoglobin 14.6 g/dL (12.0-15.0); Lymphocyte # 1.25 X10^3/ul (4.0); Lymphocyte % 9.9 % (19-41); Mean Corp Hgb Conc 33.3 g/dL (32-36); Mean Corpuscular Hgb 28.7 pg (27.0-32.0); Mean Corpuscular Volume 86.2 fL (81-99); Mean Platelet Vol. 9.3 fl (6.2-12.0); Monocyte# 0.86 X10^3/uL; Monocyte% 6.8 % (0-10); NRBC Flagged by Analyzer 0 % (0-5); Neutrophil # 10.43 X10^3/uL (2.7-7.7); Neutrophil % 82.6 % (47-70); Platelet Count 436 K/mm3 (150-450); RBC Distribution Width CV 15.1 % (11.6-14.6); RBC Distribution Width SD 48.1 fl (35.1-43.9); Red Blood Count 5.09 M/mm3 (4.2-5.4); White Blood Count 12.6 K/mm3 (4.4-11.0)
[2020-09-26 02:44] LABS: Internal QC Validated? YES +Cl - CLEAR BKGD; Pregnancy, Serum, hCG Quali. NEGATIVE Negative
[2020-09-26 02:57] LABS: AST(SGOT) 143 U/L (15-37); Alanine Aminotransfer ALT/SGPT 67 U/L (13-56); Albumin, Serum 3.6 g/dL (3.2-5.0); Alkaline Phosphatase 136 U/L (45-117); Anion Gap 9 (5-15); BUN 7 mg/dL (7-18); BUN/Creat Ratio 9.7 RATIO (10-20); Chloride 103 mmol/L (98-107); Creatinine, Serum 0.72 mg/dL (0.55-1.02); EST Glomerular Filtration Rate 92 mL/min (>60); Est Glom Filt Rate - Afr Amer 111 mL/min (>60); Estimated Creatinine Clearance 96.39 ml/min; Globulin 3.7 g/dL (2.2-4.2); Glucose 136 mg/dL (74-106); Lipase 1601 U/L (73-393); Potassium 3.4 mmol/L (3.5-5.1); Protein, Total 7.3 g/dL (6.4-8.2); Sodium Level 139 mmol/L (136-145)
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
[2020-09-26] MEDS: 0.9% Normal Saline 1,000 ML 999 ML IV (04:25)
[2020-09-26 04:34] LABS: AST(SGOT) 148 U/L (15-37); Alanine Aminotransfer ALT/SGPT 69 U/L (13-56); Albumin, Serum 3.6 g/dL (3.2-5.0); Alkaline Phosphatase 136 U/L (45-117); Anion Gap 11 (5-15); BUN 7 mg/dL (7-18); BUN/Creat Ratio 9.3 RATIO (10-20); Calcium,Total 8.1 mg/dL (8.5-10.1); Chloride 102 mmol/L (98-107); Cholesterol 149 mg/dL (200); Creatinine, Serum 0.75 mg/dL (0.55-1.02); EST Glomerular Filtration Rate 88 mL/min (>60); Est Glom Filt Rate - Afr Amer 106 mL/min (>60); Estimated Creatinine Clearance 92.54 ml/min; Globulin 3.6 g/dL (2.2-4.2); Glucose 136 mg/dL (74-106); High Density Lipoprotein 64 mg/dL; Lipase 1542 U/L (73-393); Magnesium 1.9 mg/dL (1.6-2.6); Phosphorus 3.3 mg/dL (2.5-4.9); Potassium 3.4 mmol/L (3.5-5.1); Protein, Total 7.2 g/dL (6.4-8.2); Sodium Level 138 mmol/L (136-145); Triglycerides 480 mg/dL
[2020-09-26] MEDS: Ketorolac 30 MG/ML Syringe IV ×3 (04:45→21:45)
[2020-09-26] MEDS: Lisinopril 10 MG Tablet PO ×2 (04:45→15:41)
--- NOTE | 2020-09-26 04:54 | NURSING ---
Pt attempted to take oral potassium 40 meq. Was able to get 1 tab down but not the second one. Will notify .
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
[2020-09-26] MEDS: HYDROmorphone 0.5 MG/0.5 ML SYRINGE IV ×5 (05:20→22:25)
[2020-09-26 05:34] LABS: Absolute Lymphocyte Count 1.02 X10^3/uL (0.83-4.51); Absolute Neutrophil Count 11.3 X10^3/uL (2.0-7.7); Basophil# 0.04 X10^3/uL; Basophil% 0.3 % (0-1); Eosinophil# 0.01 X10^3/uL; Eosinophils% 0.1 % (0-5); Hematocrit 36.9 % (37-47); Hemoglobin 12.4 g/dL (12.0-15.0); Lymphocyte # 1.02 X10^3/ul (4.0); Lymphocyte % 7.7 % (19-41); Mean Corp Hgb Conc 33.6 g/dL (32-36); Mean Corpuscular Hgb 29.3 pg (27.0-32.0); Mean Corpuscular Volume 87.2 fL (81-99); Mean Platelet Vol. 9.4 fl (6.2-12.0); Monocyte# 0.79 X10^3/uL; NRBC Flagged by Analyzer 0 % (0-5); Neutrophil # 11.25 X10^3/uL (2.7-7.7); Neutrophil % 85.4 % (47-70); Platelet Count 346 K/mm3 (150-450); RBC Distribution Width CV 14.9 % (11.6-14.6); RBC Distribution Width SD 48.1 fl (35.1-43.9); Red Blood Count 4.23 M/mm3 (4.2-5.4); White Blood Count 13.2 K/mm3 (4.4-11.0)
[2020-09-26] MEDS: 0.9% Normal Saline 1,000 ML 150 ML IV ×3 (05:44→19:57)
[2020-09-26 07:45] LABS: Hemoglobin A1c 5.4 % (3.8-5.6)
[2020-09-26] MEDS: Folic Acid 1 MG Tablet PO (08:08)
[2020-09-26] MEDS: Aspirin 81 MG TAB.CHEW PO (08:08)
[2020-09-26] MEDS: Thiamine Hydrochloride 100 MG Tablet PO (08:08)
[2020-09-26] MEDS: Multivitamins,Therapeutic Tablet 1 TABLET PO (08:08)
[2020-09-26] MEDS: LORazepam 1 MG Tablet PO (08:11)
[2020-09-26] MEDS: 0.9% Saline Lock 10 ML Syringe IV ×4 (09:59→18:14)
[2020-09-26] MEDS: Azelastine HCl NASAL.SRY 1 SPRAY NASAL ×2 (09:59→21:44)
[2020-09-26] MEDS: Fluticasone 0.05% 1 SPRAY NASAL.SRY NASAL ×2 (10:00→21:44)
[2020-09-26] MEDS: Metoprolol Tartrate 25 MG Tablet 12.5 MG PO ×2 (10:00→21:45)
[2020-09-26] MEDS: Montelukast 10 MG Tablet PO (10:00)
[2020-09-26] MEDS: Enoxaparin 40 MG/0.4 ML Syringe SC (10:00)
[2020-09-26] MEDS: Hydroxychloroquine 200 MG Tablet PO (17:22)
--- NOTE | 2020-09-26 19:21 | NURSING ---
discussed pain issue w/ oncoming nurse aware Sharan RN to discuss w/ hospitalist
[2020-09-26] MEDS: oxyCODONE 5 MG Tablet PO (19:57)
[2020-09-26] MEDS: Sertraline 100 MG Tablet PO (21:47)
[2020-09-26] MEDS: Atorvastatin Calcium 80 MG Tablet PO (21:48)
[2020-09-26] MEDS: Dicyclomine 10 MG Capsule 20 MG PO (21:49)
[2020-09-27] VITALS (9 sets, daily range): BP systolic 116–130; BP diastolic 81–86; PULSE 76–92; RESP 16–20; TEMP 37–37.9; O2SAT 93–98
--- NOTE | 2020-09-27 00:38 | CT_ITS ---
STUDY: CT ABDOMEN AND PELVIS WITH CONTRAST REASON FOR EXAM: Female, 50 years old. Abdomen pain radiating into back, elevated lipase, pancreatitis, ETOH withdrawl. Hx lupus, hypertension. RADIATION DOSAGE (If Supplied By Facility): CTDIvol = ( 14.07 ) mGy, DLP = ( 645.88 ) mGycm TECHNIQUE: Transaxial images were obtained from the dome of the diaphragm to the symphysis pubis with oral contrast. Oral and amp; IV Gastrografin and amp; 100mL Isovue-370 was administered. Sagittal and coronal images were reconstructed. Individualized dose optimization techniques were used for this CT. COMPARISON: None. FINDINGS: The visualized lung bases demonstrate a small right pleural effusion with adjacent lung atelectasis.. The visualized portions of the heart are within normal limits. There is decreased attenuation of the liver consistent with steatosis. There is non-visualization of the gallbladder, which may be secondary to either contraction or a prior cholecystectomy. Normal spleen. The pancreas appears mildly enlarged with peripancreatic fat stranding changes. There is a small amount of intra-abdominal free fluid throughout the abdomen. There is homogeneous enhancement of the pancreas without evidence for necrosis. Normal bilateral adrenal glands. Normal right kidney. Normal left kidney. Normal visualized stomach. Normal small intestine. There are multiple colonic diverticula consistent with diverticulosis. There is non-visualization of the appendix. Mild fatty infiltration involving the [place] of the cecum which can be seen with sequela of chronic inflammatory bowel disease. Normal abdominal aorta. Normal inferior vena cava. Normal retroperitoneum. Normal urinary bladder. There is a left adnexal cystic hypodensity measuring approximately 3.4 cm in AP dimension. The uterus is surgically absent. Normal abdominal wall. Normal osseous structures. CT/Abdomen/Pelvis WITH Contrast IMPRESSION: Edematous appearing pancreas with peripancreatic fat stranding and small amount of pelvic free fluid likely due to underlying pancreatitis. Correlate with lipase level. Left adnexal cystic hypodensity measuring 3.4 cm in AP dimension likely ovarian cyst. Follow-up nonemergent pelvic ultrasound can be obtained. Electronically Signed: Wolfgangyamilet Max, at 4:38 EST Tel , Service support ,
[2020-09-27] MEDS: 0.9% Saline Lock 10 ML Syringe IV ×5 (02:59→17:25)
[2020-09-27] MEDS: HYDROmorphone 0.5 MG/0.5 ML SYRINGE IV ×5 (02:59→21:33)
[2020-09-27] MEDS: 0.9% Normal Saline 1,000 ML 150 ML IV ×3 (03:34→17:25)
[2020-09-27] MEDS: LORazepam 1 MG Tablet PO ×2 (06:01→17:34)
[2020-09-27] MEDS: Ketorolac 30 MG/ML Syringe IV ×2 (06:01→13:03)
[2020-09-27 06:32] LABS: Absolute Lymphocyte Count 1.13 X10^3/uL (0.83-4.51); Absolute Neutrophil Count 9.9 X10^3/uL (2.0-7.7); Basophil# 0.04 X10^3/uL; Basophil% 0.3 % (0-1); Eosinophil# 0.07 X10^3/uL; Eosinophils% 0.6 % (0-5); Hematocrit 33.5 % (37-47); Hemoglobin 10.8 g/dL (12.0-15.0); Lymphocyte # 1.13 X10^3/ul (4.0); Lymphocyte % 9.6 % (19-41); Mean Corp Hgb Conc 32.2 g/dL (32-36); Mean Corpuscular Hgb 28.6 pg (27.0-32.0); Mean Corpuscular Volume 88.9 fL (81-99); Mean Platelet Vol. 9.8 fl (6.2-12.0); Monocyte# 0.57 X10^3/uL; Monocyte% 4.8 % (0-10); NRBC Flagged by Analyzer 0 % (0-5); Neutrophil # 9.92 X10^3/uL (2.7-7.7); Neutrophil % 84.1 % (47-70); Platelet Count 254 K/mm3 (150-450); RBC Distribution Width CV 14.7 % (11.6-14.6); RBC Distribution Width SD 47.4 fl (35.1-43.9); Red Blood Count 3.77 M/mm3 (4.2-5.4); White Blood Count 11.8 K/mm3 (4.4-11.0)
[2020-09-27 07:00] LABS: AST(SGOT) 133 U/L (15-37); Alanine Aminotransfer ALT/SGPT 57 U/L (13-56); Albumin, Serum 2.8 g/dL (3.2-5.0); Alkaline Phosphatase 183 U/L (45-117); Anion Gap 7 (5-15); BUN 5 mg/dL (7-18); BUN/Creat Ratio 7.7 RATIO (10-20); Chloride 101 mmol/L (98-107); Creatinine, Serum 0.65 mg/dL (0.55-1.02); EST Glomerular Filtration Rate 103 mL/min (>60); Est Glom Filt Rate - Afr Amer 125 mL/min (>60); Estimated Creatinine Clearance 106.77 ml/min; Globulin 2.9 g/dL (2.2-4.2); Glucose 85 mg/dL (74-106); Lipase 559 U/L (73-393); Potassium 3.5 mmol/L (3.5-5.1); Protein, Total 5.7 g/dL (6.4-8.2); Sodium Level 134 mmol/L (136-145)
[2020-09-27] MEDS: Aspirin 81 MG TAB.CHEW PO (08:34)
[2020-09-27] MEDS: Folic Acid 1 MG Tablet PO (08:34)
[2020-09-27] MEDS: Hydroxychloroquine 200 MG Tablet PO ×2 (08:34→17:34)
[2020-09-27] MEDS: Multivitamins,Therapeutic Tablet 1 TABLET PO (08:34)
[2020-09-27] MEDS: Thiamine Hydrochloride 100 MG Tablet PO (08:34)
--- NOTE | 2020-09-27 09:10 | PN_ITS ---
Patient Problems: Active and Suspected Problems Alcohol withdrawal (Acute) Flank pain (Acute) Chest pain (Acute) Pancreatitis (Acute) Alcoholism (Acute) Acute pancreatitis (Acute) Alcohol abuse (Acute) Physical exam, pre-employment (Acute) Subjective: Still with significant abdominal pain mostly epigastric. CT scan of her abdomen overnight demonstrated significant pancreatitis, with stranding surrounding the pancreas as well as fluid over top of the liver Vitals/I&O's: Vital Signs Temp Pulse Resp BP Pulse Ox 98.6 F 92 18 121/82 H 95 09/27/20 08:38 09/27/20 08:38 09/27/20 08:38 09/27/20 08:38 09/27/20 08:38 Oxygen Delivery Method Room Air Weight: 141 lb 15.643 oz Body Mass Index (BMI) 21.6 Intake and Output for Last 24 Hours 09/25/20 09/26/20 09/27/20 23:59 23:59 23:59 Intake Total 4320 / 4320 1000 / 1000 Output Total 1000 / 1000 1000 / 1000 Balance 3320 / 3320 0 / 0 General: Alert, Oriented x3, Cooperative, No apparent distress HEENT: Atraumatic, PERRLA, EOMI, Normocephalic Oral: Moist Mucosa Neck: Supple, No JVD Lungs: Clear to auscultation, Normal air movement, No rhonchi, No wheeze, No rales, Diminished Cardiovascular: Regular rate, Regular Rhythm, Normal S1, Normal S2, No murmurs Abdomen: Soft, Non-Distended, No Hepato-splenomegaly, Tender - Upper abdomen Extremities: No edema, Capillary Refill Less than 3 Seconds Skin: No rashes, No breakdown Neurological: Neuro grossly intact, Sensory exam intact to light touch and pain Psych/Mental Status: Normal Affect, Appropriate Microbiology Past 72 Hours 09/26/20 03:05 Mucosa - Nose SARS-CoV-2 Antigen (Rapid) - Final Laboratory Results 09/27/20 06:05: WBC 11.8 H, RBC 3.77 L, Hgb 10.8 L, Hct 33.5 L, MCV 88.9, MCH 28.6, MCHC 32.2, RDW Std Deviation 47.4 H, RDW Coeff of Leeann 14.7 H, Plt Count 254, MPV 9.8, Immature Gran % (Auto) 0.600, Neut % (Auto) 84.1 H, Lymph % (Auto) 9.6 L, [place] % (Auto) 4.8, Eos % (Auto) 0.6, Baso % (Auto) 0.3, Absolute Neuts (auto) 9.9 H, Absolute Lymphs (auto) 1.13, Nucleated RBC % 0 09/27/20 06:05: Sodium 134 L, Potassium 3.5, Chloride 101, Carbon Dioxide 26.0, Anion Gap 7, BUN 5 L, Creatinine 0.65, Estim Creat Clear Calc 106.77, Est GFR (MDRD) Af Amer 125, Est GFR (MDRD) Non-Af 103, BUN/Creatinine Ratio 7.7 L, Glucose 85, Calcium 7.0 L, Total Bilirubin 1.50 H, AST 133 H, ALT 57 H, Alkaline Phosphatase 183 H, Total Protein 5.7 L, Albumin 2.8 L, Globulin 2.9, Albumin/Globulin Ratio 1.0, Lipase 559 H Current Medications Acetaminophen (Acetaminophen 500 Mg Tablet) 650 mg PO Q4H PRN PRN PRN Reason: fever, pain 1-10 Al Hydroxide/Mg Hydroxide (Mag Hydrox/Al Hydrox/Simeth 30 Ml Udc) 30 ml PO Q6H PRN PRN PRN Reason: dyspesia Aspirin (Aspirin 81 Mg Tab.Chew) 81 mg PO DAILY@0800 [facility] Last Admin: 09/27/20 08:34 Dose: 81 mg Documented by: Atorvastatin Calcium (Atorvastatin Calcium 80 Mg Tablet) 80 mg PO QHS [facility] Last Admin: 09/26/20 21:48 Dose: 80 mg Documented by: Azelastine HCl (Azelastine Hcl Nasal.Sry) 1 spray NASAL BID [facility] Last Admin: 09/26/20 21:44 Dose: 1 spray Documented by: Bisacodyl (Bisacodyl 10 Mg Suppository) 10 mg RECTAL DAILY PRN PRN Reason: Constipation Cyclobenzaprine HCl (Cyclobenzaprine Hcl 5 Mg Tablet) 5 mg PO TID PRN PRN PRN Reason: SPASMS Dicyclomine HCl (Dicyclomine 10 Mg Capsule) 20 mg PO Q6H PRN PRN PRN Reason: abdominal discomfort Last Admin: 09/26/20 21:49 Dose: 20 mg Documented by: Enoxaparin Sodium (Enoxaparin 40 Mg/0.4 Ml Syringe) 40 mg SC DAILY [facility] Last Admin: 09/26/20 10:00 Dose: 40 mg Documented by: Fluticasone Propionate (Fluticasone 0.05% 1 [place] Nasal.Sry) 1 spray NASAL BID [facility] Last Admin: 09/26/20 21:44 Dose: 1 spray Documented by: Folic Acid (Folic Acid 1 Mg Tablet) 1 mg PO DAILY@0800 [facility] Last Admin: 09/27/20 08:34 Dose: 1 mg Documented by: Gabapentin (Gabapentin 300 Mg Capsule) 300 mg PO Q8H PRN PRN PRN Reason: moderate to severe anxiety Guaifenesin (Guaifenesin 10 Ml Udc (200mg/10ml)) 20 ml PO Q4H PRN PRN PRN Reason: COUGH Hydromorphone HCl (Hydromorphone 0.5 Mg/0.5 Ml Syringe) 0.5 mg IV Q4H PRN PRN PRN Reason: Pain Score 6-10 Last Admin: 09/27/20 08:35 Dose: 0.5 mg Documented by: Hydroxychloroquine Sulfate (Hydroxychloroquine 200 Mg Tablet) 200 mg PO BIDCM [facility] Last Admin: 09/27/20 08:34 Dose: 200 mg Documented by: Hydroxyzine Pamoate (Hydroxyzine Archana 25 Mg Capsule) 50 mg PO Q4H PRN PRN PRN Reason: mild anxiety Sodium Chloride () 1,000 mls @ 150 mls/hr IV .Q6H40M [facility] Last Admin: 09/27/20 03:34 Dose: 150 mls/hr Documented by: Pantoprazole Sodium 40 mg/ (Sodium Chloride) 110 mls @ 330 mls/hr IV Q12 [facility] Last Infusion: 09/26/20 22:04 Dose: Infused Documented by: Ketorolac Tromethamine (Ketorolac 30 Mg/Ml Syringe) 30 mg IV Q8 [facility] Stop: 09/27/20 14:01 Last Admin: 09/27/20 06:01 Dose: 30 mg Documented by: Lisinopril (Lisinopril 10 Mg Tablet) 10 mg PO DAILY [facility] Last Admin: 09/26/20 15:41 Dose: 10 mg Documented by: Loperamide HCl (Loperamide 2 Mg Capsule) 2 mg PO Q4H PRN PRN PRN Reason: LOOSE STOOLS Lorazepam (Lorazepam 1 Mg Tablet) 1 mg PO BID PRN PRN PRN Reason: ANXIETY Last Admin: 09/27/20 06:01 Dose: 1 mg Documented by: Metoprolol Tartrate (Metoprolol Tartrate 25 Mg Tablet) 12.5 mg PO BID [facility] Last Admin: 09/26/20 21:45 Dose: 12.5 mg Documented by: Montelukast Sodium (Montelukast 10 Mg Tablet) 10 mg PO DAILY [facility] Last Admin: 09/26/20 10:00 Dose: 10 mg Documented by: Multivitamins ([facility],Therapeutic Tablet) [facility] Last Admin: 09/27/20 08:34 Dose: 1 tablet Documented by: Ondansetron HCl (Ondansetron 4 Mg/2 Ml Vial) 4 mg IV Q8H PRN PRN PRN Reason: NAUSEA/VOMITING Last Admin: 09/26/20 15:34 Dose: 4 mg Documented by: Oxycodone HCl (Oxycodone 5 Mg Tablet) 5 mg PO Q4H PRN PRN PRN Reason: Pain Score 4-5 Last Admin: 09/26/20 19:57 Dose: 5 mg Documented by: Senna (Senna Tablet) 2 tablet PO QHS PRN PRN PRN Reason: Constipation Sertraline HCl (Sertraline 100 Mg Tablet) 100 mg PO QHS [facility] Last Admin: 09/26/20 21:47 Dose: 100 mg Documented by: Sodium Chloride (0.9% Saline Lock 10 Ml Syringe) 10 - 40 ml IV UD PRN PRN Reason: SALINE FLUSH Last Admin: 09/27/20 08:34 Dose: 10 ml Documented by: Thiamine HCl (Thiamine Hydrochloride 100 Mg Tablet) [facility] Last Admin: 09/27/20 08:34 Dose: 100 mg Documented by: Throat Lozenges (Benzocaine/Menthol 1 Lozenge) 1 lozenge MUCOUS MEM Q2H PRN PRN PRN Reason: SORE THROAT Trazodone HCl (Trazodone 100 Mg Tablet) 100 mg PO QHS PRN PRN PRN Reason: INSOMNIA STROKE Vital Signs/Narrative: Vital Signs Temp Pulse Resp BP Pulse Ox 09/27/20 08:38 98.6 F 92 18 121/82 H 95 Medical Necessity - Tobacco Use Smoking Status: Never smoker Tobacco Use: Non-smoker Assessment/Plan All Active Problems Alcohol withdrawal (Acute) Flank pain (Acute) Chest pain (Acute) Pancreatitis (Acute) Alcoholism (Acute) Acute pancreatitis (Acute) Alcohol abuse (Acute) Physical exam, pre-employment (Acute) Pyelonephritis (Resolved) 1. Acute pancreatitis/elevated LFTs/history of alcohol abuse -Continue with n.p.o. status and IV fluids -Continue with pain meds -No need to check further lipase as it does not help with management -If she has improvement in her pain can start a diet regardless of lipase level -We will hold off on a statin secondary to her history of acute pancreatitis as well as her elevated LFTs -Continue with [facility] protocol and discussed with her the role of the possibility that alcohol plays in her pancreatitis 2. CAD/history of CVA/HTN/HLD -We will hold off on a statin at this time secondary to her acute pancreatitis and the fact that Lipitor can cause pancreatitis as well as her elevated LFTs -Can continue her metoprolol as well as her lisinopril -We will continue to monitor blood pressure as her systolics are in the 120s here, she states that she had been elevated at home because she had been on prior hypertensive regimen which she discontinued on her own 3. Anxiety/depression/chronic back pain -Continue with her home Zoloft and Ativan -Continue with her Flexeril -Stable 4. Lupus -She is on Plaquenil which will restart while here -She does have a history of vasculitis and nephritis associated with her lupus 5. GERD -Stable -Continue PPI DVT: Lovenox Inpatient E&M: 94024 Subs Hosp L2
[2020-09-27] MEDS: Azelastine HCl NASAL.SRY 1 SPRAY NASAL ×2 (10:08→21:39)
[2020-09-27] MEDS: Metoprolol Tartrate 25 MG Tablet 12.5 MG PO ×2 (10:08→21:42)
[2020-09-27] MEDS: Fluticasone 0.05% 1 SPRAY NASAL.SRY NASAL ×2 (10:08→21:39)
[2020-09-27] MEDS: Montelukast 10 MG Tablet PO (10:08)
[2020-09-27] MEDS: Lisinopril 10 MG Tablet PO (10:08)
[2020-09-27] MEDS: Enoxaparin 40 MG/0.4 ML Syringe SC (10:09)
--- NOTE | 2020-09-27 12:20 | CASEMGMT ---
ALEXANDRU MILES assessment: Face to Face with patient for initial transition planning/care coordination assessment. ALEXANDRU MILES introduced self and role at [facility], pt voices understanding and consents to assessment at this time. Pt is sitting up in bed in no distress at this time. Pt is A/Ox4 at this time and answers all questions appropriately at this time. Pt's is lying in bed next to her during assessment. Care providers, pharmacy, and demographics verified at this time. Presentation: Pt states upper abd pain that 'feels like pancreatitis' but w/ generalized fatigue/body aches for 1 week. 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 Pt states her , Ion Beebe, is HPOA. LNOK: Ion Beebe, ; Janay Faulkner, mother Living Arrangements: Pt states lives with in 2 story home and states no concerns at home at this time. Pt states is independent with ADL's. Transportation: Pt states drives and states no transportation concerns at this time. DME/HHC: Pt states has a walker at home and states no need for any further DME at this time. Pt states no hx of HHC in the past but has been to [facility] rehab in the past. Pt states is already active with [facility] and Jil AGUIRRE aware of pt at this time, voices understanding. Pt states no concerns with going home at time of discharge. Pt states is unemployed but is trying to get on disability. Pt states does not smoke cigarettes and states had been sober for a year but has been drinking for the last several months. Pt states no further concerns/needs at this time. CM to follow for any further discharge planning/needs. Advised pt to ask for CM if any further questions/concerns/needs arise, voices understanding. Pt Goal: Home Plan: [place] ALEXANDRU MILES
--- NOTE | 2020-09-27 20:01 | NURSING ---
193 This RN went into patient's room. Patient said she helped herself from the freezer and got an icee and she ate it. This RN told her she is NPO and not to have anything to eat or drink except for a sip of water with meds and that the doctor said she could not have clear liquids at this time with her pain as high as it has been and with requiring IV Dilaudid as often as she was. The doctor will reevaluate in the morning.
[2020-09-27] MEDS: BENZOCAINE/MENTHOL 1 LOZENGE MUCOUS MEM (21:36)
[2020-09-27] MEDS: Sertraline 100 MG Tablet PO (21:42)
[2020-09-28] VITALS (8 sets, daily range): BP systolic 117–132; BP diastolic 72–85; PULSE 87–96; RESP 18–20; TEMP 37.1–37.8; O2SAT 94–98
[2020-09-28] MEDS: HYDROmorphone 0.5 MG/0.5 ML SYRINGE IV ×3 (01:37→10:56)
[2020-09-28] MEDS: 0.9% Normal Saline 1,000 ML 150 ML IV ×4 (01:40→21:16)
[2020-09-28 06:31] LABS: Absolute Lymphocyte Count 1.28 X10^3/uL (0.83-4.51); Absolute Neutrophil Count 7.5 X10^3/uL (2.0-7.7); Basophil# 0.04 X10^3/uL; Basophil% 0.4 % (0-1); Eosinophils% 3.1 % (0-5); Hematocrit 28.3 % (37-47); Hemoglobin 9.1 g/dL (12.0-15.0); Lymphocyte # 1.28 X10^3/ul (4.0); Lymphocyte % 13.2 % (19-41); Mean Corp Hgb Conc 32.2 g/dL (32-36); Mean Corpuscular Hgb 28.5 pg (27.0-32.0); Mean Corpuscular Volume 88.7 fL (81-99); Mean Platelet Vol. 10.3 fl (6.2-12.0); Monocyte# 0.56 X10^3/uL; Monocyte% 5.8 % (0-10); NRBC Flagged by Analyzer 0 % (0-5); Neutrophil # 7.48 X10^3/uL (2.7-7.7); Neutrophil % 77.1 % (47-70); Platelet Count 199 K/mm3 (150-450); RBC Distribution Width CV 14.5 % (11.6-14.6); RBC Distribution Width SD 46.8 fl (35.1-43.9); Red Blood Count 3.19 M/mm3 (4.2-5.4); White Blood Count 9.7 K/mm3 (4.4-11.0)
[2020-09-28 07:26] LABS: ALB/GLOB Ratio 0.8 RATIO (0.9-2.4); AST(SGOT) 41 U/L (15-37); Alanine Aminotransfer ALT/SGPT 28 U/L (13-56); Albumin, Serum 2.4 g/dL (3.2-5.0); Alkaline Phosphatase 139 U/L (45-117); Anion Gap 7 (5-15); BUN 3 mg/dL (7-18); BUN/Creat Ratio 5.3 RATIO (10-20); Chloride 106 mmol/L (98-107); Creatinine, Serum 0.56 mg/dL (0.55-1.02); EST Glomerular Filtration Rate 122 mL/min (>60); Est Glom Filt Rate - Afr Amer 148 mL/min (>60); Estimated Creatinine Clearance 123.93 ml/min; Globulin 2.9 g/dL (2.2-4.2); Glucose 82 mg/dL (74-106); Potassium 2.9 mmol/L (3.5-5.1); Protein, Total 5.3 g/dL (6.4-8.2); Sodium Level 137 mmol/L (136-145)
[2020-09-28] MEDS: BENZOCAINE/MENTHOL 1 LOZENGE MUCOUS MEM ×2 (07:42→21:14)
[2020-09-28] MEDS: Folic Acid 1 MG Tablet PO (08:01)
[2020-09-28] MEDS: Aspirin 81 MG TAB.CHEW PO (08:01)
[2020-09-28] MEDS: Hydroxychloroquine 200 MG Tablet PO ×2 (08:01→17:26)
[2020-09-28] MEDS: Multivitamins,Therapeutic Tablet 1 TABLET PO (08:01)
[2020-09-28] MEDS: Thiamine Hydrochloride 100 MG Tablet PO (08:01)
--- NOTE | 2020-09-28 09:44 | PN_ITS ---
Patient Problems: Active and Suspected Problems Alcohol withdrawal (Acute) Flank pain (Acute) Chest pain (Acute) Pancreatitis (Acute) Alcoholism (Acute) Acute pancreatitis (Acute) Alcohol abuse (Acute) Physical exam, pre-employment (Acute) Subjective: Abdominal pain is improved however still fairly tender on palpation, can start with sips and chips but no food today Vitals/I&O's: Vital Signs Temp Pulse Resp BP Pulse Ox 99.7 F H 94 20 H 130/85 H 94 09/28/20 06:46 09/28/20 06:46 09/28/20 06:46 09/28/20 06:46 09/28/20 07:24 Oxygen Delivery Method Room Air Weight: 141 lb 15.643 oz Body Mass Index (BMI) 21.6 Intake and Output for Last 24 Hours 09/26/20 09/27/20 09/28/20 23:59 23:59 23:59 Intake Total 4320 / 4320 3257.5 / 3277.5 Output Total 1000 / 1000 1000 / 1000 Balance 3320 / 3320 2257.5 / 2277.5 General: Alert, Oriented x3, Cooperative, No apparent distress HEENT: Atraumatic, PERRLA, EOMI, Normocephalic Oral: Moist Mucosa Neck: Supple, No JVD Lungs: Clear to auscultation, Normal air movement, No rhonchi, No wheeze, No rales, Diminished Cardiovascular: Regular rate, Regular Rhythm, Normal S1, Normal S2, No murmurs Abdomen: Soft, Non-Distended, No Hepato-splenomegaly, Tender - Upper abdomen Extremities: No edema, Capillary Refill Less than 3 Seconds Skin: No rashes, No breakdown Neurological: Neuro grossly intact, Sensory exam intact to light touch and pain Psych/Mental Status: Normal Affect, Appropriate Microbiology Past 72 Hours 09/26/20 03:05 Mucosa - Nose SARS-CoV-2 Antigen (Rapid) - Final Laboratory Results 09/28/20 05:42: WBC 9.7, RBC 3.19 L, Hgb 9.1 L, Hct 28.3 L, MCV 88.7, MCH 28.5, MCHC 32.2, RDW Std Deviation 46.8 H, RDW Coeff of Leeann 14.5, Plt Count 199, MPV 10.3, Immature Gran % (Auto) 0.400, Neut % (Auto) 77.1 H, Lymph % (Auto) 13.2 L, [place] % (Auto) 5.8, Eos % (Auto) 3.1, Baso % (Auto) 0.4, Absolute Neuts (auto) 7.5, Absolute Lymphs (auto) 1.28, Nucleated RBC % 0 09/28/20 05:42: Sodium 137, Potassium 2.9 L, Chloride 106, Carbon Dioxide 24.0, Anion Gap 7, BUN 3 L, Creatinine 0.56, Estim Creat Clear Calc 123.93, Est GFR (MDRD) Af Amer 148, Est GFR (MDRD) Non-Af 122, BUN/Creatinine Ratio 5.3 L, Glucose 82, Calcium 7.0 L, Total Bilirubin 0.70, AST 41 H, ALT 28, Alkaline Phosphatase 139 H, Total Protein 5.3 L, Albumin 2.4 L, Globulin 2.9, Albumin/Globulin Ratio 0.8 L Current Medications Acetaminophen (Acetaminophen 500 Mg Tablet) 650 mg PO Q4H PRN PRN PRN Reason: fever, pain 1-10 Al Hydroxide/Mg Hydroxide (Mag Hydrox/Al Hydrox/Simeth 30 Ml Udc) 30 ml PO Q6H PRN PRN PRN Reason: dyspesia Aspirin (Aspirin 81 Mg Tab.Chew) 81 mg PO DAILY@0800 [facility] Last Admin: 09/28/20 08:01 Dose: 81 mg Documented by: Azelastine HCl (Azelastine Hcl Nasal.Sry) 1 spray NASAL BID [facility] Last Admin: 09/27/20 21:39 Dose: 1 spray Documented by: Bisacodyl (Bisacodyl 10 Mg Suppository) 10 mg RECTAL DAILY PRN PRN Reason: Constipation Cyclobenzaprine HCl (Cyclobenzaprine Hcl 5 Mg Tablet) 5 mg PO TID PRN PRN PRN Reason: SPASMS Dicyclomine HCl (Dicyclomine 10 Mg Capsule) 20 mg PO Q6H PRN PRN PRN Reason: abdominal discomfort Last Admin: 09/26/20 21:49 Dose: 20 mg Documented by: Enoxaparin Sodium (Enoxaparin 40 Mg/0.4 Ml Syringe) 40 mg SC DAILY [facility] Last Admin: 09/27/20 10:09 Dose: 40 mg Documented by: Fluticasone Propionate (Fluticasone 0.05% 1 [place] Nasal.Sry) 1 spray NASAL BID [facility] Last Admin: 09/27/20 21:39 Dose: 1 spray Documented by: Folic Acid (Folic Acid 1 Mg Tablet) 1 mg PO DAILY@0800 [facility] Last Admin: 09/28/20 08:01 Dose: 1 mg Documented by: Gabapentin (Gabapentin 300 Mg Capsule) 300 mg PO Q8H PRN PRN PRN Reason: moderate to severe anxiety Guaifenesin (Guaifenesin 10 Ml Udc (200mg/10ml)) 20 ml PO Q4H PRN PRN PRN Reason: COUGH Hydromorphone HCl (Hydromorphone 0.5 Mg/0.5 Ml Syringe) 0.5 mg IV Q4H PRN PRN PRN Reason: Pain Score 6-10 Last Admin: 09/28/20 06:44 Dose: 0.5 mg Documented by: Hydroxychloroquine Sulfate (Hydroxychloroquine 200 Mg Tablet) 200 mg PO BIDCM [facility] Last Admin: 09/28/20 08:01 Dose: 200 mg Documented by: Hydroxyzine Pamoate (Hydroxyzine Archana 25 Mg Capsule) 50 mg PO Q4H PRN PRN PRN Reason: mild anxiety Sodium Chloride () 1,000 mls @ 150 mls/hr IV .Q6H40M [facility] Last Admin: 09/28/20 08:01 Dose: 150 mls/hr Documented by: Pantoprazole Sodium 40 mg/ (Sodium Chloride) 110 mls @ 330 mls/hr IV Q12 [facility] Last Infusion: 09/27/20 22:04 Dose: Infused Documented by: Lisinopril (Lisinopril 10 Mg Tablet) 10 mg PO DAILY [facility] Last Admin: 09/27/20 10:08 Dose: 10 mg Documented by: Loperamide HCl (Loperamide 2 Mg Capsule) 2 mg PO Q4H PRN PRN PRN Reason: LOOSE STOOLS Lorazepam (Lorazepam 1 Mg Tablet) 1 mg PO BID PRN PRN PRN Reason: ANXIETY Last Admin: 09/27/20 17:34 Dose: 1 mg Documented by: Metoprolol Tartrate (Metoprolol Tartrate 25 Mg Tablet) 12.5 mg PO BID [facility] Last Admin: 09/27/20 21:42 Dose: 12.5 mg Documented by: Montelukast Sodium (Montelukast 10 Mg Tablet) 10 mg PO DAILY [facility] Last Admin: 09/27/20 10:08 Dose: 10 mg Documented by: Multivitamins ([facility]it[facility],Therapeutic Tablet) [facility] Last Admin: 09/28/20 08:01 Dose: 1 tablet Documented by: Ondansetron HCl (Ondansetron 4 Mg/2 Ml Vial) 4 mg IV Q8H PRN PRN PRN Reason: NAUSEA/VOMITING Last Admin: 09/26/20 15:34 Dose: 4 mg Documented by: Oxycodone HCl (Oxycodone 5 Mg Tablet) 5 mg PO Q4H PRN PRN PRN Reason: Pain Score 4-5 Last Admin: 09/26/20 19:57 Dose: 5 mg Documented by: Senna (Senna Tablet) 2 tablet PO QHS PRN PRN PRN Reason: Constipation Sertraline HCl ([facility] 100 Mg [facility]t) [facility] Last Admin: 09/27/20 21:42 Dose: 100 mg Documented by: Sodium Chloride (0.9% Saline Lock 10 Ml Syringe) 10 - 40 ml IV UD PRN PRN Reason: SALINE FLUSH Last Admin: 09/27/20 17:25 Dose: 10 ml Documented by: Thiamine HCl (Thiamine Hydrochloride 100 Mg Tablet) [facility] Last Admin: 09/28/20 08:01 Dose: 100 mg Documented by: Throat Lozenges (Benzocaine/Menthol 1 Lozenge) 1 lozenge MUCOUS MEM Q2H PRN PRN PRN Reason: SORE THROAT Last Admin: 09/28/20 07:42 Dose: 1 lozenge Documented by: Trazodone HCl (Trazodone 100 Mg Tablet) 100 mg PO QHS PRN PRN PRN Reason: INSOMNIA STROKE Vital Signs/Narrative: Vital Signs Temp Pulse Resp BP Pulse Ox 09/28/20 07:24 94 09/28/20 06:46 99.7 F H 94 20 H 130/85 H 95 Medical Necessity - Tobacco Use Smoking Status: Never smoker Tobacco Use: Non-smoker Assessment/Plan All Active Problems Alcohol withdrawal (Acute) Flank pain (Acute) Chest pain (Acute) Pancreatitis (Acute) Alcoholism (Acute) Acute pancreatitis (Acute) Alcohol abuse (Acute) Physical exam, pre-employment (Acute) Pyelonephritis (Resolved) 1. Acute pancreatitis/elevated LFTs/history of alcohol abuse -Continue with clear liquid sips and chips and IV fluids -Continue with pain meds -No need to check further lipase as it does not help with management -If she has improvement in her pain can start a diet regardless of lipase level, will start her on sips and chips -We will hold off on a statin secondary to her history of acute pancreatitis as well as her elevated LFTs -Continue with [facility] protocol and discussed with her the role of the possibility that alcohol plays in her pancreatitis 2. CAD/history of CVA/HTN/HLD -We will hold off on a statin at this time secondary to her acute pancreatitis and the fact that Lipitor can cause pancreatitis as well as her elevated LFTs -Can continue her metoprolol as well as her lisinopril -We will continue to monitor blood pressure as her systolics are in the 120s here, she states that she had been elevated at home because she had been on prior hypertensive regimen which she discontinued on her own 3. Anxiety/depression/chronic back pain -Continue with her home Zoloft and Ativan -Continue with her Flexeril -Stable 4. Lupus -She is on Plaquenil which will restart while here -She does have a history of vasculitis and nephritis associated with her lupus 5. GERD -Stable -Continue PPI DVT: Lovenox Inpatient E&M: 83811 Subs Hosp L2
[2020-09-28] MEDS: Azelastine HCl NASAL.SRY 1 SPRAY NASAL ×2 (10:19→21:15)
[2020-09-28] MEDS: Enoxaparin 40 MG/0.4 ML Syringe SC (10:19)
[2020-09-28] MEDS: Fluticasone 0.05% 1 SPRAY NASAL.SRY NASAL ×2 (10:20→21:15)
[2020-09-28] MEDS: Metoprolol Tartrate 25 MG Tablet 12.5 MG PO ×2 (10:21→21:18)
[2020-09-28] MEDS: Lisinopril 10 MG Tablet PO (10:22)
[2020-09-28] MEDS: Montelukast 10 MG Tablet PO (10:22)
[2020-09-28] MEDS: oxyCODONE 5 MG Tablet PO ×2 (14:51→21:14)
[2020-09-28] MEDS: Dicyclomine 10 MG Capsule 20 MG PO (14:53)
[2020-09-28] MEDS: Potassium Chloride 10mEq/100mL 10 MEQ/100 ML IV.SOLN. 100 MEQ IV BOLUS ×4 (15:17→18:33)
[2020-09-28] MEDS: LORazepam 1 MG Tablet PO (17:33)
[2020-09-28] MEDS: Sertraline 100 MG Tablet PO (21:17)
[2020-09-29] VITALS (7 sets, daily range): BP systolic 132–162; BP diastolic 80–100; PULSE 64–89; RESP 16–20; TEMP 36.8–37.7; O2SAT 93–99
[2020-09-29] MEDS: Dicyclomine 10 MG Capsule 20 MG PO (02:10)
[2020-09-29] MEDS: oxyCODONE 5 MG Tablet PO ×5 (02:11→20:05)
[2020-09-29] MEDS: 0.9% Normal Saline 1,000 ML 150 ML IV ×3 (04:50→19:00)
[2020-09-29 07:00] LABS: Absolute Lymphocyte Count 1.26 X10^3/uL (0.83-4.51); Absolute Neutrophil Count 7.5 X10^3/uL (2.0-7.7); Basophil# 0.04 X10^3/uL; Basophil% 0.4 % (0-1); Eosinophil# 0.33 X10^3/uL; Eosinophils% 3.3 % (0-5); Hematocrit 27.5 % (37-47); Hemoglobin 8.9 g/dL (12.0-15.0); Lymphocyte # 1.26 X10^3/ul (4.0); Lymphocyte % 12.7 % (19-41); Mean Corp Hgb Conc 32.4 g/dL (32-36); Mean Corpuscular Hgb 29.2 pg (27.0-32.0); Mean Corpuscular Volume 90.2 fL (81-99); Mean Platelet Vol. 10.4 fl (6.2-12.0); Monocyte# 0.73 X10^3/uL; Monocyte% 7.4 % (0-10); NRBC Flagged by Analyzer 0 % (0-5); Neutrophil % 75.7 % (47-70); Platelet Count 184 K/mm3 (150-450); RBC Distribution Width CV 14.8 % (11.6-14.6); RBC Distribution Width SD 48.5 fl (35.1-43.9); Red Blood Count 3.05 M/mm3 (4.2-5.4); White Blood Count 9.9 K/mm3 (4.4-11.0)
[2020-09-29 07:49] LABS: Anion Gap 7 (5-15); BUN 2 mg/dL (7-18); BUN/Creat Ratio 4.9 RATIO (10-20); Calcium,Total 7.1 mg/dL (8.5-10.1); Chloride 109 mmol/L (98-107); Creatinine, Serum 0.41 mg/dL (0.55-1.02); EST Glomerular Filtration Rate 175 mL/min (>60); Est Glom Filt Rate - Afr Amer 211 mL/min (>60); Estimated Creatinine Clearance 169.27 ml/min; Glucose 105 mg/dL (74-106); Magnesium 1.3 mg/dL (1.6-2.6); Potassium 2.8 mmol/L (3.5-5.1); Sodium Level 138 mmol/L (136-145)
[2020-09-29] MEDS: Multivitamins,Therapeutic Tablet 1 TABLET PO (08:16)
[2020-09-29] MEDS: Metoprolol Tartrate 25 MG Tablet 12.5 MG PO ×2 (08:16→21:29)
[2020-09-29] MEDS: Hydroxychloroquine 200 MG Tablet PO ×2 (08:16→15:51)
[2020-09-29] MEDS: Folic Acid 1 MG Tablet PO (08:16)
[2020-09-29] MEDS: Aspirin 81 MG TAB.CHEW PO (08:16)
[2020-09-29] MEDS: Lisinopril 10 MG Tablet PO (08:16)
[2020-09-29] MEDS: Enoxaparin 40 MG/0.4 ML Syringe SC (08:17)
[2020-09-29] MEDS: Montelukast 10 MG Tablet PO (08:17)
[2020-09-29] MEDS: Azelastine HCl NASAL.SRY 1 SPRAY NASAL (08:17)
[2020-09-29] MEDS: Fluticasone 0.05% 1 SPRAY NASAL.SRY NASAL (08:17)
[2020-09-29] MEDS: Thiamine Hydrochloride 100 MG Tablet PO (08:17)
[2020-09-29] MEDS: LORazepam 1 MG Tablet PO (08:22)
[2020-09-29] MEDS: Magnesium Chloride 64 MG Delay Rel.Tablet 128 MG PO (11:06)
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
--- NOTE | 2020-09-29 16:05 | CASEMGMT ---
Social Work Note SW provided pt with furniture resources including [employer], [place] [address], [facility] Assistance programs list, [employer], and [employer] information. Pt thanked this worker, denied additional needs or concerns. Karly Flores SOLAR ENERGY SYSTEMS ENGINEER, TRANSPORT ANALYST
--- NOTE | 2020-09-29 18:56 | PN_ITS ---
Patient Problems: Active and Suspected Problems Alcohol withdrawal (Acute) Flank pain (Acute) Chest pain (Acute) Pancreatitis (Acute) Alcoholism (Acute) Acute pancreatitis (Acute) Alcohol abuse (Acute) Physical exam, pre-employment (Acute) Subjective: Patient was seen and examined today, her potassium was low and she was given sup plemental potassium today. Patient complained of ongoing diarrhea-nursing however did not hear this complaint from the patient. At the time of this dictation in the early evening of 09/29/2020, patient has not had any episode of diarrhea. Patient also states she has been seeing some rectal bleeding intermittently over the last several days, nursing is not charted this to my knowledge. Patient states that the 5 mg OxyIR she has been given for pain is not effective, I increased the dose to 5-10 milligrams for pain. - Physical Exam Vitals/I&O's: Vital Signs Temp Pulse Resp BP Pulse Ox 99.8 F H 84 16 147/83 H 97 09/29/20 14:25 09/29/20 14:25 09/29/20 14:25 09/29/20 14:25 09/29/20 14:25 Oxygen Flow Rate (L/min) 2 Oxygen Delivery Method Room Air Weight: 64.4 kg Body Mass Index (BMI) 21.6 Intake and Output for Last 24 Hours 09/27/20 09/28/20 09/29/20 23:59 23:59 23:59 Intake Total 3257.5 / 3277.5 5037.5 / 5037.5 4417.5 / 4417.5 Output Total 1000 / 1000 Balance 2257.5 / 2277.5 5037.5 / 5037.5 4417.5 / 4417.5 General: Alert, Oriented x3, Cooperative, No apparent distress, Well developed, Well nourished HEENT: Atraumatic, PERRLA, EOMI, Normocephalic Oral: Moist Mucosa Neck: Supple, No JVD, Trachea Midline, Thyroid Normal Size and Texture Lungs: Clear to auscultation, Normal air movement, No rhonchi, No wheeze, No rales Cardiovascular: Regular rate, Regular Rhythm, Normal S1, Normal S2, No murmurs, PMI Normal, No rub noted Abdomen: Bowel Sounds Present, Soft, Non-Distended, Tender - Mild diffuse abdominal tenderness is noted Extremities: No clubbing, No cyanosis, No edema, Capillary Refill Less than 3 Seconds Skin: No rashes, No breakdown Musculoskeletal: No Tenderness to Palpation of Joints or Extremities Neurological: Cranial nerves II-XII grossly intact, Neuro grossly intact, Sensory exam intact to light touch and pain Psych/Mental Status: Normal Affect, Appropriate, Alert and oriented to time, place, person, mood and affect Microbiology Past 72 Hours 09/29/20 15:00 Stool Enteric Bacteriology - Preliminary Laboratory Results 09/29/20 06:33: Sodium 138, Potassium 2.8 L, Chloride 109 H, Carbon Dioxide 22.0, Anion Gap 7, BUN 2 L, Creatinine 0.41 L, Estim Creat Clear Calc 169.27, Est GFR (MDRD) Af Amer 211, Est GFR (MDRD) Non-Af 175, BUN/Creatinine Ratio 4.9 L, Glucose 105, Calcium 7.1 L, Magnesium 1.3 L 09/29/20 06:33: WBC 9.9, RBC 3.05 L, Hgb 8.9 L, Hct 27.5 L, MCV 90.2, MCH 29.2, MCHC 32.4, RDW Std Deviation 48.5 H, RDW Coeff of Leeann 14.8 H, Plt Count 184, MPV 10.4, Immature Gran % (Auto) 0.500, Neut % (Auto) 75.7 H, Lymph % (Auto) 12.7 L, [place] % (Auto) 7.4, Eos % (Auto) 3.3, Baso % (Auto) 0.4, Absolute Neuts (auto) 7.5, Absolute Lymphs (auto) 1.26, Nucleated RBC % 0 Current Medications Acetaminophen (Acetaminophen 500 Mg Tablet) 650 mg PO Q4H PRN PRN PRN Reason: fever, pain 1-10 Aspirin (Aspirin 81 Mg Tab.Chew) 81 mg PO DAILY@0800 [facility] Last Admin: 09/29/20 08:16 Dose: 81 mg Documented by: Dicyclomine HCl (Dicyclomine 10 Mg Capsule) 20 mg PO Q6H PRN PRN PRN Reason: abdominal discomfort Last Admin: 09/29/20 02:10 Dose: 20 mg Documented by: Enoxaparin Sodium (Enoxaparin 40 Mg/0.4 Ml Syringe) 40 mg SC DAILY [facility] Last Admin: 09/29/20 08:17 Dose: 40 mg Documented by: Folic Acid (Folic Acid 1 Mg Tablet) 1 mg PO DAILY@0800 [facility] Last Admin: 09/29/20 08:16 Dose: 1 mg Documented by: Hydroxychloroquine Sulfate (Hydroxychloroquine 200 Mg Tablet) 200 mg PO BIDCM [facility] Last Admin: 09/29/20 15:51 Dose: 200 mg Documented by: Sodium Chloride () 1,000 mls @ 150 mls/hr IV .Q6H40M [facility] Last Admin: 09/29/20 11:13 Dose: 150 mls/hr Documented by: Pantoprazole Sodium 40 mg/ (Sodium Chloride) 110 mls @ 330 mls/hr IV Q12 [facility] Last Infusion: 09/29/20 08:38 Dose: Infused Documented by: Lisinopril (Lisinopril 10 Mg Tablet) 10 mg PO DAILY [facility] Last Admin: 09/29/20 08:16 Dose: 10 mg Documented by: Loperamide HCl (Loperamide 2 Mg Capsule) 2 mg PO Q4H PRN PRN PRN Reason: LOOSE STOOLS Metoprolol Tartrate (Metoprolol Tartrate 25 Mg Tablet) 12.5 mg PO BID [facility] Last Admin: 09/29/20 08:16 Dose: 12.5 mg Documented by: Ondansetron HCl (Ondansetron 4 Mg/2 Ml Vial) 4 mg IV Q8H PRN PRN PRN Reason: NAUSEA/VOMITING Last Admin: 09/26/20 15:34 Dose: 4 mg Documented by: Oxycodone HCl (Oxycodone 5 Mg Tablet) 5 - 10 mg PO Q4H PRN PRN PRN Reason: Pain Score 4-10 Last Admin: 09/29/20 15:20 Dose: 10 mg Documented by: Sertraline HCl (Sertraline 100 Mg Tablet) 100 mg PO QHS [facility] Last Admin: 09/28/20 21:17 Dose: 100 mg Documented by: Sodium Chloride (0.9% Saline Lock 10 Ml Syringe) 10 - 40 ml IV UD PRN PRN Reason: SALINE FLUSH Last Admin: 09/27/20 17:25 Dose: 10 ml Documented by: Trazodone HCl (Trazodone 100 Mg Tablet) 100 mg PO QHS PRN PRN PRN Reason: INSOMNIA Medical Necessity - Tobacco Use Smoking Status: Never smoker Tobacco Use: Non-smoker Assessment/Plan All Active Problems Alcohol withdrawal (Acute) Flank pain (Acute) Chest pain (Acute) Pancreatitis (Acute) Alcoholism (Acute) Acute pancreatitis (Acute) Alcohol abuse (Acute) Physical exam, pre-employment (Acute) Pyelonephritis (Resolved) #1 acute recurrent alcoholic pancreatitis-patient's diet was advanced today, will continue fluid administration #2 hypokalemia-possibly secondary to diarrhea, BMP will be rechecked tomorrow, patient was given potassium supplementation #3 diarrhea-etiology unclear, stool for enteric pathogens and Giardia was ordered-however if the patient does not have diarrhea, these tests will not be performed #4 chronic alcoholism #5 acute anemia-etiology unclear, CBC will be rechecked tomorrow, patient is currently on Protonix, I will change this to oral Protonix #6 Lupus #7 cerebrovascular disease-patient states she had a recent TIA, I will place her on a statin #8 essential hypertension #9 anxiety/depression #10 rectal bleeding per patient-patient states that she has been seeing some intermittent rectal bleeding over the last several days, nursing has not noticed this, patient will need follow-up as an outpatient concerning this Inpatient E&M: 54872 Subs Hosp L2
[2020-09-29] MEDS: 0.9% Saline Lock 10 ML Syringe IV (19:00)
[2020-09-29] MEDS: Sertraline 100 MG Tablet PO (21:29)
[2020-09-29] MEDS: Pantoprazole Sodium 40 MG Tablet PO (21:30)
[2020-09-30] MEDS: oxyCODONE 5 MG Tablet PO ×3 (00:16→08:33)
[2020-09-30] MEDS: 0.9% Normal Saline 1,000 ML 150 ML IV ×2 (02:15→08:30)
[2020-09-30 02:16] VITALS: BP 134/85; PULSE 83; RESP 18; TEMP 36.9; O2SAT 99
--- NOTE | 2020-09-30 04:57 | PCS.PANDOC ---
PANDEMIC DOCUMENTATION INITIATED: Date: 09/29/20 Time: 1914
[2020-09-30 06:00] LABS: Absolute Lymphocyte Count 1.54 X10^3/uL (0.83-4.51); Absolute Neutrophil Count 5.8 X10^3/uL (2.0-7.7); Basophil# 0.04 X10^3/uL; Basophil% 0.5 % (0-1); Eosinophil# 0.25 X10^3/uL; Eosinophils% 2.9 % (0-5); Hematocrit 28.5 % (37-47); Hemoglobin 9.2 g/dL (12.0-15.0); Lymphocyte # 1.54 X10^3/ul (4.0); Lymphocyte % 17.6 % (19-41); Mean Corp Hgb Conc 32.3 g/dL (32-36); Mean Corpuscular Hgb 28.8 pg (27.0-32.0); Mean Corpuscular Volume 89.3 fL (81-99); Mean Platelet Vol. 9.9 fl (6.2-12.0); Monocyte# 1.06 X10^3/uL; Monocyte% 12.1 % (0-10); NRBC Flagged by Analyzer 0 % (0-5); Neutrophil # 5.84 X10^3/uL (2.7-7.7); Neutrophil % 66.4 % (47-70); Platelet Count 221 K/mm3 (150-450); RBC Distribution Width CV 14.7 % (11.6-14.6); RBC Distribution Width SD 47.8 fl (35.1-43.9); Red Blood Count 3.19 M/mm3 (4.2-5.4); White Blood Count 8.8 K/mm3 (4.4-11.0)
[2020-09-30 06:20] LABS: Anion Gap 6 (5-15); BUN 2 mg/dL (7-18); BUN/Creat Ratio 4.4 RATIO (10-20); Calcium,Total 7.9 mg/dL (8.5-10.1); Chloride 105 mmol/L (98-107); Creatinine, Serum 0.45 mg/dL (0.55-1.02); EST Glomerular Filtration Rate 157 mL/min (>60); Est Glom Filt Rate - Afr Amer 190 mL/min (>60); Estimated Creatinine Clearance 154.23 ml/min; Glucose 93 mg/dL (74-106); Potassium 3.3 mmol/L (3.5-5.1); Sodium Level 136 mmol/L (136-145)
[2020-09-30 07:08] VITALS: O2SAT 97
[2020-09-30] MEDS: Aspirin 81 MG TAB.CHEW PO (07:32)
[2020-09-30] MEDS: Hydroxychloroquine 200 MG Tablet PO (07:32)
[2020-09-30] MEDS: Folic Acid 1 MG Tablet PO (07:32)
[2020-09-30 07:34] VITALS: BP 150/108; PULSE 87; RESP 18; TEMP 37.1; O2SAT 99
[2020-09-30] MEDS: Ondansetron 4 MG/2 ML Vial IV (08:30)
[2020-09-30 08:33] VITALS: PULSE 87
[2020-09-30] MEDS: Metoprolol Tartrate 25 MG Tablet 12.5 MG PO (08:33)
[2020-09-30] MEDS: Lisinopril 10 MG Tablet PO (08:34)
[2020-09-30] MEDS: Pantoprazole Sodium 40 MG Tablet PO (08:34)
--- NOTE | 2020-09-30 10:45 | NURSING ---
Pt sitting on side of bed anticipating discharge. RN enters to take discharge vitals. Pt states she I hired an wine specialist and they will be taking care of how I was treated here. When asked pt what she was specifically referring to, pt states that it's none of this RN's business and she will have it taken care. She just would like to know who has viewed her chart and who had access to her information while in the hospital. Pt made aware that only staff caring for her are allowed viewing her chart. Pt asking to speak to rn charge. Call made to Zoey rn charge to come speak with pt. While this RN obtained pt's discharge paperwork from racing secretary and handicapper, pt was standing at the nurses station stating she was ready to go. wildlife ecology professor approached pt, but pt refused assistance. Rex, pt advocate's phone number provided for further needs. Pt encouraged to return to room for this RN to discuss discharge paperwork, but pt refused. Wheelchair offered to transport out, but pt declined and stated she would just like to ambulate. While in the elevator, pt states that she has a relative that is related to one of the [employer]'s on the floor and she is concerned about them providing information about her. Once again, pt assured that information is not allowed to be shared with anyone except who is caring for the patient unless the patient gives permission. Pt verbalizes understanding, but remains frustrated. Assisted pt to main entrance. Discharge paperwork in hand. Pt aware of scripts at [facility].
--- NOTE | 2020-09-30 10:49 | DCINST_ITS ---
- Discharge Diagnoses Current Active Problems: Current Active and Chronic Problems Alcohol withdrawal (Acute) Alcohol dependence (Chronic) Cervical neuropathy (Chronic) Flank pain (Acute) Lupus nephritis (Chronic) Lupus vasculitis (Chronic) CAD (coronary artery disease) (Chronic) Stroke (Chronic) Dissection, vertebral artery (Chronic) Alcoholism in remission (Chronic) Chest pain (Acute) Pancreatitis (Acute) Alcoholism (Acute) Acute pancreatitis (Acute) Alcohol abuse (Acute) Hypertension (Chronic) Physical exam, pre-employment (Acute) Systemic lupus erythematosus (Chronic) Fibromyalgia (Chronic) History of chest pain (Chronic) You will use the following diet at home:: No restrictions Your food should be the consistency of: Regular Your liquids should be the consistency of: Regular/Thin Discharge Activity: Return to Normal Activity Weight Bearing Status: Full weight bearing Additional Instructions: No alcohol intake Follow up with AA Allergies/Adverse Reactions: Allergies metoclopramide HCl [From Reglan] Allergy (Verified 09/26/20 04:18) anxious peanut Allergy (Verified 09/26/20 01:49) Anaphylaxis Sulfa (Sulfonamide Antibiotics) Allergy (Verified 09/26/20 01:49) Hives prednisone Adverse Reaction (Verified 09/26/20 04:18) psychosis prochlorperazine [From Compazine] Adverse Reaction (Verified 09/26/20 04:18) pt is unsure Medications to take at Discharge Aspirin [Aspirin, Baby] 81 mg PO DAILY@0800 05/31/18 Azelastine HCl 1 spray NS BID 06/26/19 Lidocaine [Aspercreme Lidocaine] 1 ea TP DAILY PRN PRN 06/26/19 Montelukast Sodium [Singulair] 10 mg PO DAILY 06/26/19 Ondansetron [Zofran Odt] 4 mg PO Q4H PRN PRN 06/26/19 Sennosides [Senokot] 17.2 mg PO DAILY PRN PRN 06/26/19 Fluticasone 0.05% [Flonase Nasal [place]] 1 spray NASAL BID 06/12/20 Lorazepam [Ativan] 1 mg PO BID PRN PRN 06/12/20 Omeprazole 40 mg PO DAILY 06/12/20 Sertraline HCl [Zoloft] 100 mg PO QHS 06/12/20 cycloBENZAPRine HCl [Flexeril] 5 mg PO TID PRN PRN 06/12/20 Hydroxychloroquine Sulfate [Plaquenil] 200 mg PO BID 09/26/20 Amlodipine Besylate [Norvasc] 5 mg PO DAILY #1 tab 09/30/20 Atorvastatin Calcium [Lipitor] 20 mg PO DAILY #30 tab 09/30/20 Oxycodone [Oxyir] 5 - 10 mg PO Q4H PRN PRN 7 Days #15 tab 09/30/20 The following prescriptions were given: Atorvastatin Calcium [Lipitor] 20 mg PO DAILY #30 tab Transmission Status: Pending to DESIREE MAHMOOD RD Amlodipine Besylate [Norvasc] 5 mg PO DAILY #1 tab Oxycodone [Oxyir] 5 - 10 mg PO Q4H PRN PRN 7 Days #15 tab PRN Reason: Pain Score 4-10 Transmission Status: Received by DESIREE MAHMOOD RD Primary Care Physician: Froylan Grant MD [Primary Care Provider] - Please follow up with your Primary Care Physician in: within 7 days-you will need a repeat CBC, you need your anemia investigated Test Results: Test results from this visit will be discussed in further detail at your follow- up appointment, if applicable.
[2020-09-30 10:54] VITALS: BP 139/91; PULSE 77; RESP 16; TEMP 36.4; O2SAT 100
--- NOTE | 2020-10-01 07:53 | DS.PCM_ITS ---
Discharge Date and Diagnosis - Problem List Patient Problems: Active and Suspected Problems Alcohol withdrawal (Acute) Flank pain (Acute) Chest pain (Acute) Pancreatitis (Acute) Alcoholism (Acute) Acute pancreatitis (Acute) Alcohol abuse (Acute) Physical exam, pre-employment (Acute) Date of Admission: 09/26/20 Date of Discharge: 09/30/20 - Primary Discharge Diagnosis Acute Problems: Active Problems #1 acute recurrent alcoholic pancreatitis #2 hypokalemia-possibly secondary to diarrhea #3 diarrhea-etiology unclear #4 chronic alcoholism #5 acute anemia #6 Lupus-chronic #7 cerebrovascular disease #8 essential hypertension #9 anxiety/depression - Secondary Discharge Diagnosis Chronic Problems: Chronic Problems Alcohol dependence (Chronic) Cervical neuropathy (Chronic) Lupus nephritis (Chronic) Lupus vasculitis (Chronic) CAD (coronary artery disease) (Chronic) Stroke (Chronic) Dissection, vertebral artery (Chronic) Alcoholism in remission (Chronic) Hypertension (Chronic) Systemic lupus erythematosus (Chronic) Fibromyalgia (Chronic) History of chest pain (Chronic) Hospital Course and Treatment Operations: None Procedures: None Summary of Care Provided: The patient is a 50 year old F who was seen in the emergency room at [facility] with complaints of generalized abdominal pain, patient admitted to drinking alcohol over the last several days and she has a history of pancreatitis in the past. Patient also has a history of alcoholism. Work-up in the emergency room included labs which showed evidence of an elevated lipase indicating acute pancreatitis, patient also had some elevation in her liver function test. CT of the abdomen and pelvis showed an edematous appearing pancreas, there was a small amount of pelvic free fluid noted, there is a left adnexal cystic hypodensity likely an ovarian cyst. Patient was given antinausea medications IV narcotic pain medication and fluids and she was admitted to [place] [address]. Patient's hemoglobin dropped several grams over the next few days of her admission, she stated to this examiner that she had rectal bleeding and diarrhea-none of which were noted by the nursing staff according to conversations I had with her nurses on [place] [address]. Enteric stool panel was obtained due to her complaints of diarrhea, this was negative for any pathogenic organisms. Patient's potassium and magnesium was low and she was given supplemental potassium and magnesium during her hospital stay. Patient was not given a blood transfusion, she was urged to follow-up with her PCP shortly after discharge from the hospital to follow-up on her anemia. Patient declined any assistance regarding her drinking problem and she stated that she follows up with AA online. On 09/30/2020, patient was seen and examined: On examination she appeared in good health and spirits, she does not appear to be in any distress. Vital signs as documented. Skin warm and dry and without overt rashes. Neck without JVD, thyroid appears normal, trachea is midline, neck is supple. Lungs clear, normal air movement was noted. Heart exam notable for regular rhythm, normal sounds and absence of murmurs, rubs or gallops. Abdomen unremarkable and without evidence of organomegaly, masses, or abdominal aortic enlargement, bowel sounds are present in all 4 quadrants, no abdominal tenderness was noted. Extremities nonedematous, no cyanosis was noted, no clubbing was noted. Neuro: Cranial nerves II through XII are grossly intact, no focal motor deficits were noted, sensation to light touch and pinprick is intact, motor exam 5/5 throughout. Psych: Patient is alert and oriented x3, she does not appear anxious or depressed, she does not appear agitated. Patient requested pain medications on discharge and I provided her with a small amount of OxyIR, she requested benzodiazepines the day before she was discharged, I did not think this was a good idea because of her chronic alcoholism. Patient did not complain to this examiner of any anxiety-only to nursing. On 09/30/2020, patient was seen and examined and felt be in stable condi tion for discharge home. Patient Problems: Active and Suspected Problems Alcohol withdrawal (Acute) Flank pain (Acute) Chest pain (Acute) Pancreatitis (Acute) Alcoholism (Acute) Acute pancreatitis (Acute) Alcohol abuse (Acute) Physical exam, pre-employment (Acute) - Physical Exam Vitals/I&O's: Vital Signs Temp Pulse Resp BP Pulse Ox 97.6 F L 77 16 139/91 H 100 09/30/20 10:54 09/30/20 10:54 09/30/20 10:54 09/30/20 10:54 09/30/20 10:54 Oxygen Flow Rate (L/min) 2 Oxygen Delivery Method Room Air Weight: 64.4 kg Body Mass Index (BMI) 21.6 Intake and Output for Last 24 Hours 09/29/20 09/30/20 10/01/20 23:59 23:59 23:59 Intake Total 5417.5 / 5417.5 3099.5 / 3099.5 Balance 5417.5 / 5417.5 3099.5 / 3099.5 Microbiology Past 72 Hours 09/29/20 15:00 Stool Enteric Bacteriology - Final Discharge Activity: Return to Normal Activity Weight Bearing Status: Full weight bearing Home Medications: Medications to take at Discharge Aspirin [Aspirin, Baby] 81 mg PO DAILY@0800 05/31/18 Azelastine HCl 1 spray NS BID 06/26/19 Lidocaine [Aspercreme Lidocaine] 1 ea TP DAILY PRN PRN 06/26/19 Montelukast Sodium [Singulair] 10 mg PO DAILY 06/26/19 Ondansetron [Zofran Odt] 4 mg PO Q4H PRN PRN 06/26/19 Sennosides [Senokot] 17.2 mg PO DAILY PRN PRN 06/26/19 Fluticasone 0.05% [Flonase Nasal [place]] 1 spray NASAL BID 06/12/20 Lorazepam [Ativan] 1 mg PO BID PRN PRN 06/12/20 Omeprazole 40 mg PO DAILY 06/12/20 Sertraline HCl [Zoloft] 100 mg PO QHS 06/12/20 cycloBENZAPRine HCl [Flexeril] 5 mg PO TID PRN PRN 06/12/20 Hydroxychloroquine Sulfate [Plaquenil] 200 mg PO BID 09/26/20 Amlodipine Besylate [Norvasc] 5 mg PO DAILY #1 tab 09/30/20 Atorvastatin Calcium [Lipitor] 20 mg PO DAILY #30 tab 09/30/20 Oxycodone [Oxyir] 5 - 10 mg PO Q4H PRN PRN 7 Days #15 tab 09/30/20 Following Prescriptions Were Given to Patient: Atorvastatin Calcium [Lipitor] 20 mg PO DAILY #30 tab Transmission Status: Received by DESIREE MAHMOOD RD Amlodipine Besylate [Norvasc] 5 mg PO DAILY #1 tab Oxycodone [Oxyir] 5 - 10 mg PO Q4H PRN PRN 7 Days #15 tab PRN Reason: Pain Score 4-10 Transmission Status: Received by DESIREE MAHMOOD RD Primary Care Physician: Froylan Grant MD [Primary Care Provider] - Please follow up with your Primary Care Physician in: within 7 days-you will need a repeat CBC, you need your anemia investigated Disposition: Home Minutes spent on discharge:: 31 Patient Condition:: Stable Medical Necessity - Tobacco Use Smoking Status: Never smoker Tobacco Use: Non-smoker Meaningful Use Info Meaningful Use Diagnoses (Choose all that apply): None applicable Inpatient E&M: 03885 Disch Hosp
--- NOTE | 2020-10-01 15:35 | CASEMGMT ---
ALEXANDRU MILES Discharge Follow-up Phone Call: ANAID: 12 Strata: 3 Call Date: 10/01/2020 Discharge Date: 09/30/2020 Time of Call: 1535 Duration: 1 min Admitting Diagnosis: Acute pancreatitis/ETOH withdrawal ALEXANDRU MILES attempted to complete follow-up phone call after recent hospitalization. No answer, voicemail box full and unable to leave message.
== END 2020-09-30 11:02 | disposition home or self-care (01) | DRG 282 ==
LOC: ED 03:03 → MS3 03:25
PROVIDERS: Family Medicine; Admitting Provider Family Medicine; Emergency Provider Emergency Medicine; PCP Internal Medicine; Referring Provider Family Medicine; Visit Provider Internal Medicine
DX: K85.20 Alcohol induced acute pancreatitis without necrosis or infection (principal); F10.239 Alcohol dependence with withdrawal, unspecified; E87.6 Hypokalemia; R19.7 Diarrhea, unspecified; D64.9 Anemia, unspecified; I10 Essential (primary) hypertension; F41.9 Anxiety disorder, unspecified; F32.9 Major depressive disorder, single episode, unspecified; Z86.73 Personal history of transient ischemic attack (TIA), and cerebral infarction without residual deficits; M32.14 Glomerular disease in systemic lupus erythematosus; Z79.899 Other long term (current) drug therapy; R94.5 Abnormal results of liver function studies; R73.9 Hyperglycemia, unspecified; I25.10 Atherosclerotic heart disease of native coronary artery without angina pectoris; G89.29 Other chronic pain; J30.9 Allergic rhinitis, unspecified; K21.9 Gastro-esophageal reflux disease without esophagitis; E78.5 Hyperlipidemia, unspecified; K62.5 Hemorrhage of anus and rectum
CPT/HCPCS: 36415; 74177; 80048; 80053; 80061; 83036; 83690; 83735; 84100; 84703; 85025; 87426; 87506; 97802; 97803; 99251; 99284; J7030; Q9967; A4216; G0463; J2405

== ENCOUNTER 2020-10-16 13:19 | Emergency (ER) | payer MEDICAID, SELFPAY ==
[2020-09-26 04:55] VITALS: BMI 21.6
[2020-10-16 13:20] VITALS: BP 116/93; PULSE 117; RESP 24; TEMP 36.4; O2SAT 97; BMI 22.3
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
[2020-10-16] MEDS: LORazepam 1 MG Tablet PO (14:09)
== END 2020-10-16 17:08 | disposition home or self-care (01) ==
PROVIDERS: Emergency Provider Student in an Organized Health Care Education/Training Program
DX: T76.21XA Adult sexual abuse, suspected, initial encounter (principal); F41.1 Generalized anxiety disorder
CPT/HCPCS: 99281; 99282

== ENCOUNTER 2020-10-16 13:29 | Outpatient (REF) | payer SELFPAY ==
[2020-10-16 13:20] VITALS: BMI 22.3
== END 2020-10-16 17:15 | disposition home or self-care (01) ==
LOC: EDREF 13:29
DX: Z04.41 Encounter for examination and observation following alleged adult rape (principal)

== ENCOUNTER 2021-03-17 13:22 | Inpatient (IN) | payer MEDICAID, SELFPAY ==
[2021-03-17 13:23] VITALS: BP 119/94; PULSE 105; RESP 16; TEMP 36.4; O2SAT 98; BMI 21.0
--- NOTE | 2021-03-17 14:24 | CT_ITS ---
STUDY: CT ABDOMEN AND PELVIS WITHOUT CONTRAST REASON FOR EXAM: Female, 50 years old. abd pain, right sided w/ n/v RADIATION DOSAGE (If Supplied By Facility): CTDIvol = ( 6.21 ) mGy, DLP = ( 328.90 ) mGycm TECHNIQUE: Transaxial images were obtained from the dome of the diaphragm to the symphysis pubis without oral contrast, and without intravenous contrast. Sagittal and coronal images were reconstructed. Individualized dose optimization techniques were used for this CT. COMPARISON: 09/27/2020 FINDINGS: The visualized lung bases are unremarkable. The visualized portions of the heart are within normal limits. Normal liver. There is non-visualization of the gallbladder, which may be secondary to either contraction or a prior cholecystectomy. Normal spleen. Normal pancreas. Normal bilateral adrenal glands. Normal right kidney. Normal left kidney. Excreted contrast within the renal collecting system bilaterally without evidence of obstruction. Normal visualized stomach. Normal small intestine. Normal colon. There is non-visualization of the appendix. Normal abdominal aorta. Normal inferior vena cava. Normal retroperitoneum. Normal urinary bladder. Normal abdominal wall. Normal osseous structures. CT/Abdomen/Pelvis without Cont IMPRESSION: Normal unenhanced CT of the abdomen and pelvis. Electronically Signed: Arnie Baker MD at 16:42 EDT Tel , Service support ,
--- NOTE | 2021-03-17 14:25 | ED.VIS.GI ---
HPI HPI - GI History of Present Illness Chief Complaint: Nausea/Vomiting Informant: patient Abdominal Pain/Flank Pain Onset: Weeks (2) Timing: Continuous and Waxes and wanes Quality: Aching Location: Epigastric, RUQ and - (w/ radiation into mid-low back) Current Severity: Moderate Maximum Severity: Severe Worsened by: Food Relieved by: Nothing Nausea/Vomiting/Emesis GI Symptom: Positive for Nausea and Vomiting Quality: Positive for Nonbilious; Negative for Blood streaks, Coffee ground and Hematemesis Diarrhea/Melena/Hematochezia GI Symptom: Positive for Diarrhea and Hematochezia (small amts, occasionally); Negative for Melena Onset: Weeks (2) Stool Quality: Positive for Loose Severity: Moderate Associated Symptoms Associated Symptoms: Negative for Dysuria, Frequency, Hematuria and Urgency Narrative Narrative: Patient broke her ankle in November, realized today after seeing orthopedics that she will need fusion surgery. She has been having chronic pain there, and as a result even though she is a recovering alcoholic, has been drinking around to canned beverages per day for the last 2 weeks to help deal with the pain so that she did not have to take narcotic pain medications out of fear for addiction given her history of alcoholism and some cirrhosis. She states as a result of drinking she feels like she has developed pancreatitis which she has had in the past, and presents for those reasons for saying that she wants no pain medication for her abdominal or ankle pain, she just wants hydrated, Zofran, and help with her GI issues. She is had some occasional small amount of bright red blood per rectum, no hematemesis, and admits that she has had a few minor uncomfortable hemorrhoids as well. [facility] Medical History Alcohol dependence Alcoholism in remission CAD (coronary artery disease) Cervical neuropathy Dissection, vertebral artery Fibromyalgia Hypertension Lupus nephritis Lupus vasculitis Pancreatitis Stroke Systemic lupus erythematosus Home Medications aspirin 81 mg PO DAILY@0800 05/31/18 [History Last Taken 06/12/20] azelastine 1 spray NS BID 06/26/19 [History Last Taken 06/12/20] lidocaine 1 ea TP DAILY PRN PRN 06/26/19 [History Last Taken 06/05/20] montelukast 10 mg PO DAILY 06/26/19 [History Last Taken 06/11/20] ondansetron 4 mg PO Q4H PRN PRN 06/26/19 [History Last Taken 2 Weeks Ago ~05/29/20] sennosides 17.2 mg PO DAILY PRN PRN 06/26/19 [History Last Taken 06/11/20] cyclobenzaprine 5 mg PO TID PRN PRN 06/12/20 [History Last Taken 06/11/20] fluticasone propionate 1 spray NASAL BID 06/12/20 [History Last Taken 06/12/20] lorazepam 1 mg PO BID PRN PRN 06/12/20 [History Last Taken 06/12/20] omeprazole 40 mg PO DAILY 06/12/20 [History Last Taken 06/12/20] sertraline 100 mg PO QHS 06/12/20 [History Last Taken 09/24/20] hydroxychloroquine 200 mg PO BID 09/26/20 [History Last Taken Unknown] amlodipine 5 mg PO DAILY #1 tab 09/30/20 [Rx Last Taken Unknown] atorvastatin 20 mg PO DAILY #30 tab 09/30/20 [Rx Last Taken Unknown] Allergy/AdvReac Type Severity Reaction Status Date / Time metoclopramide HCl Allergy anxious Verified 03/17/21 13:27 [From Reglan] peanut Allergy Anaphylaxis Verified 03/17/21 13:27 Sulfa (Sulfonamide Allergy Hives Verified 03/17/21 13:27 Antibiotics) prednisone AdvReac psychosis Verified 03/17/21 13:27 prochlorperazine AdvReac pt is Verified 03/17/21 13:27 [From Compazine] unsure Social History Smoking Status: Never smoker ROS ROS ED Constitutional Constitutional ED: Reports malaise; Denies body ache(s), chills or fever(s) Eyes Eyes: Denies change in vision or diplopia ENT ENT ED: Denies rhinorrhea or sore throat Cardiovascular Cardiovascular: Denies chest pain or palpitations Respiratory/Chest Respiratory/Chest: Denies cough or dyspnea Gastrointestinal Gastrointestinal: Reports as per HPI, abdominal pain, diarrhea, hematochezia, hemorrhoids, nausea and vomiting; Denies hematemesis Genitourinary Genitourinary ED: Denies dysuria or hematuria Musculoskeletal Musculoskeletal: Reports as per HPI, back pain and extremity pain; Denies neck pain Integumentary Denies abscess or rash Neurologic Neurologic: Denies headache(s), paresthesias or weakness Psychiatric Psychiatric: Denies anxiety or suicidal thoughts EXAM Physical Exam Const Vital Signs: 03/17/21 13:23 03/17/21 16:03 Temperature 97.5 F L Temperature Source Temporal Pulse Rate 105 H 62 Respiratory Rate 16 16 Blood Pressure 119/94 H 118/67 Blood Pressure Mean 102 84 Pulse Ox 98 99 Oxygen Delivery Method Room Air Positive well nourished and well developed General Appearance ED: well developed and NAD HEENT Reports moist mucous membranes normocephalic and atraumatic Eyes PERRL and EOMs intact bilaterally Neck full ROM and supple Resp normal respiratory effort and clear to auscultation bilaterally Cardio regular rate, regular rhythm and no murmurs GI non-distended Auscultation: normoactive bowel sounds Palpation: soft and tender epigastric, RLQ and RUQ; Negative for guarding or rebound tenderness present Back/Spine no CVA tenderness General Back: other FROM Extremity normal to inspection Extremity Narrative: Limited range of motion left ankle, patient wearing a brace, antalgic gait as a result, otherwise extremities benign General Extremety ED: Negative for edema, pulses abnormal or tenderness General Extremity: Negative for edema or pulses abnormal Neuro oriented x3, CN's II-XII intact bilaterally and no sensory deficits noted Sensorium / Orientation: awake and alert Motor Exam: strength 5/5 throughout Skin no rashes or lesions noted and no wounds MDM MDM MDM Narrative Medical decision making narrative: Patient treated with IV fluids and Zofran she felt better afterwards and was able to tolerate some water. Her liver enzymes and lipase are within normal limits, her IV infiltrated so her CT was obtained without contrast and as below is negative for any acute. She was given some potassium. Patient had an alcohol level of 363, she states she does not know how that is possible since she only had 2 a percent canned beverages just prior to arrival, but admits that she basically slammed them both down within a couple minutes. She had an empty stomach and may be this explains her alcohol level. Regardless, the patient states that with her alcoholism, she regrets that she is unable to stop drinking now and is requesting inpatient detox because this is the only thing that we will get her to stop drinking, including outpatient rehab. Lab Data Attestation: I reviewed the patient's lab results. Labs: Laboratory Results - last 24 hr 03/17/21 03/17/21 03/17/21 14:43 14:43 14:43 WBC 8.8 RBC 4.43 Hgb 12.5 Hct 38.4 MCV 86.7 MCH 28.2 MCHC 32.6 RDW Std Deviation 54.1 H RDW Coeff of Leeann 16.9 H Plt Count 486 H MPV 9.3 Immature Gran % (Auto) 0.200 Neut % (Auto) 68.3 Lymph % (Auto) 22.5 Vermilion % (Auto) 7.8 Eos % (Auto) 0.5 Baso % (Auto) 0.7 Absolute Neuts (auto) 6.0 Absolute Lymphs (auto) 1.97 Nucleated RBC % 0 Sodium 139 Potassium 3.2 L Chloride 101 Carbon Dioxide 29.0 Anion Gap 9 BUN 4 L Creatinine 0.74 Estim Creat Clear Calc 89.38 Est GFR (MDRD) Af Amer 107 Est GFR (MDRD) Non-Af 88 BUN/Creatinine Ratio 5.4 L Glucose 131 H Calcium 8.4 L Total Bilirubin 0.20 AST 35 ALT 33 Alkaline Phosphatase 96 Total Protein 7.4 Albumin 3.5 Globulin 3.9 Albumin/Globulin Ratio 0.9 Lipase 92 Serum , Qual Urine Color Urine Clarity Urine pH Ur Specific Rosebud Urine Protein Urine Glucose (UA) Urine Ketones Urine Occult Blood Urine Nitrite Urine Bilirubin Urine Urobilinogen Ur Leukocyte Esterase Urine RBC Urine WBC Ur Squamous Epith Cells Urine Bacteria Urine Mucus Ethyl Alcohol 363.0 H* 03/17/21 03/17/21 14:43 15:14 WBC RBC Hgb Hct MCV MCH MCHC RDW Std Deviation RDW Coeff of Leeann Plt Count MPV Immature Gran % (Auto) Neut % (Auto) Lymph % (Auto) Vermilion % (Auto) Eos % (Auto) Baso % (Auto) Absolute Neuts (auto) Absolute Lymphs (auto) Nucleated RBC % Sodium Potassium Chloride Carbon Dioxide Anion Gap BUN Creatinine Estim Creat Clear Calc Est GFR (MDRD) Af Amer Est GFR (MDRD) Non-Af BUN/Creatinine Ratio Glucose Calcium Total Bilirubin AST ALT Alkaline Phosphatase Total Protein Albumin Globulin Albumin/Globulin Ratio Lipase Serum , Qual NEGATIVE Urine Color Straw Urine Clarity Clear Urine pH 6.5 Ur Specific Rosebud 1.010 Urine Protein Negative Urine Glucose (UA) Normal Urine Ketones Negative Urine Occult Blood 10 H Urine Nitrite Negative Urine Bilirubin Negative Urine Urobilinogen Normal Ur Leukocyte Esterase 100 H Urine RBC 0 SEEN Urine WBC 0-5 SEEN Ur Squamous Epith Cells 0 SEEN Urine Bacteria 0 SEEN Urine Mucus 0 SEEN Ethyl Alcohol Radiography Diagnostic Testing: Radiology Impression Abdomen/Pelvis CT 03/17/21 14:24 IMPRESSION: Normal unenhanced CT of the abdomen and pelvis. Electronically Signed: Arnie Baker MD at 16:42 EDT Tel , Service support , Discharge Plan Triage Chief Complaint: Nausea/Vomiting ED Provider: Raúl Adair Dx/Rx/DC Orders Clinical Impression: Alcohol dependence, Acute alcoholic gastritis Prescriptions: No Action aspirin 81 MG Tab.Chew 81 mg PO DAILY@0800 RF: 0 lidocaine 1 EACH adhesive patch,medicated 1 ea TP DAILY PRN PRN (Reason: Pain Or Fever) RF: 0 montelukast 10 MG tablet 10 mg PO DAILY RF: 0 azelastine 137 MCG/0.137 ML aerosol,spray 1 spray NS BID RF: 0 ondansetron 4 MG tablet 4 mg PO Q4H PRN PRN (Reason: vomitting) RF: 0 sennosides 17.2 MG tablet 17.2 mg PO DAILY PRN PRN (Reason: Constipation) RF: 0 cyclobenzaprine 10 MG tablet 5 mg PO TID PRN PRN (Reason: Spasms) RF: 0 sertraline 100 MG tablet 100 mg PO QHS RF: 0 omeprazole 40 MG capsule,delayed release(DR/EC) 40 mg PO DAILY RF: 0 lorazepam 1 MG tablet 1 mg PO BID PRN PRN (Reason: Anxiety) RF: 0 fluticasone propionate 1 SPRAY spray,suspension 1 spray NASAL BID RF: 0 hydroxychloroquine 200 MG tablet 200 mg PO BID RF: 0 atorvastatin 20 MG tablet 20 mg PO DAILY Qty: 30 RF: 0 amlodipine 5 MG tablet 5 mg PO DAILY Qty: 1 RF: 0 Primary Care Provider: Froylan Grant Referrals: Froylan Grant MD [Primary Care Provider] - Disposition Disposition: Acute Care [facility]
[2021-03-17] MEDS: Ondansetron 4 MG/2 ML Vial IV (14:45)
[2021-03-17] MEDS: 0.9% Normal Saline 1,000 ML 1000 ML IV (14:45)
[2021-03-17 15:04] LABS: Absolute Lymphocyte Count 1.97 X10^3/uL (0.83-4.51); Basophil# 0.06 X10^3/uL; Basophil% 0.7 % (0-1); Eosinophil# 0.04 X10^3/uL; Eosinophils% 0.5 % (0-5); Hematocrit 38.4 % (37-47); Hemoglobin 12.5 g/dL (12.0-15.0); Lymphocyte # 1.97 X10^3/ul (0.83-4.51); Lymphocyte % 22.5 % (19-41); Mean Corp Hgb Conc 32.6 g/dL (32-36); Mean Corpuscular Hgb 28.2 pg (27.0-32.0); Mean Corpuscular Volume 86.7 fL (81-99); Mean Platelet Vol. 9.3 fl (6.2-12.0); Monocyte# 0.68 X10^3/uL; Monocyte% 7.8 % (0-10); NRBC Flagged by Analyzer 0 % (0-5); Neutrophil % 68.3 % (47-70); Platelet Count 486 K/mm3 (150-450); RBC Distribution Width CV 16.9 % (11.6-14.6); RBC Distribution Width SD 54.1 fl (35.1-43.9); Red Blood Count 4.43 M/mm3 (4.2-5.4); White Blood Count 8.8 K/mm3 (4.4-11.0)
[2021-03-17 15:19] LABS: Bacteria 0 SEEN /hpf (None Seen); Mucous, Urine 0 SEEN /hpf (<or=2+); Red Blood Cells-Urine 0 SEEN /hpf (0-5); Squamous Epithelial Cells - UA 0 SEEN /hpf (5-10)
[2021-03-17 15:20] LABS: ALB/GLOB Ratio 0.9 RATIO (0.9-2.4); AST(SGOT) 35 U/L (15-37); Alanine Aminotransfer ALT/SGPT 33 U/L (13-56); Albumin, Serum 3.5 g/dL (3.2-5.0); Alkaline Phosphatase 96 U/L (45-117); Anion Gap 9 (5-15); BUN 4 mg/dL (7-18); BUN/Creat Ratio 5.4 RATIO (10-20); Calcium,Total 8.4 mg/dL (8.5-10.1); Chloride 101 mmol/L (98-107); Creatinine, Serum 0.74 mg/dL (0.55-1.02); EST Glomerular Filtration Rate 88 mL/min (>60); Est Glom Filt Rate - Afr Amer 107 mL/min (>60); Estimated Creatinine Clearance 89.38 ml/min; Globulin 3.9 g/dL (2.2-4.2); Glucose 131 mg/dL (74-106); Lipase 92 U/L (73-393); Potassium 3.2 mmol/L (3.5-5.1); Protein, Total 7.4 g/dL (6.4-8.2); Sodium Level 139 mmol/L (136-145)
[2021-03-17 15:22] LABS: Color, Urine Straw (Yellow); Glucose, Dipstick Normal (Normal); Ketone-Dipstick Negative (Negative); Leukocyte Esterase-Dipstick 100 /ul (Negative); Nitrite-Dipstick Negative (Negative); Occult Blood-Urine 10 /ul (Negative); Protein-Dipstick Negative (Negative); Urine Bilirubin Dipstick Negative (Negative); Urine Clarity Clear (Clear); Urine Urobilinogen Normal (Normal); Urine pH 6.5 (5.0 - 8.0)
[2021-03-17 15:31] LABS: White Blood Cells 0-5 SEEN /hpf (0-5)
[2021-03-17 15:31] LABS: Internal QC Validated? YES +Cl - CLEAR BKGD; Pregnancy, Serum, hCG Quali. NEGATIVE Negative
[2021-03-17 16:03] VITALS: BP 118/67; PULSE 62; RESP 16; O2SAT 99
--- NOTE | 2021-03-17 16:04 | ED.RN ---
iv extravagated in ct. warm compress applied dr notified. to do ct without contrast
--- NOTE | 2021-03-17 17:20 | NURSING ---
DR BORREGO FOR DR BENEDICT
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
--- NOTE | 2021-03-17 17:40 | NURSING ---
MED SURG ASHGABBIE ALCOHOL DEPENDENCE, ALCOHOL GASTRITIS
[2021-03-17 18:08] VITALS: BP 118/75; PULSE 61; RESP 16; TEMP 36.7; O2SAT 99
[2021-03-17 18:13] VITALS: BP 114/89; PULSE 87; RESP 16; TEMP 37.3; O2SAT 99
[2021-03-17 18:14] VITALS: BMI 20.8
[2021-03-17 18:35] LABS: Magnesium 1.9 mg/dL (1.6-2.6)
[2021-03-17] MEDS: Potassium Chloride Oral Tablet 20 MEQ 60 MEQ PO (18:48)
[2021-03-17] MEDS: Dicyclomine 10 MG Capsule 20 MG PO (18:48)
[2021-03-17] MEDS: Phenobarbital 32.4 MG Tablet PO ×2 (18:49→22:07)
[2021-03-17] MEDS: Pantoprazole Sodium 40 MG Tablet PO (21:06)
[2021-03-17] MEDS: LORazepam 1 MG Tablet PO (21:06)
[2021-03-17] MEDS: Acetaminophen 500 MG Tablet 1000 MG PO (21:06)
[2021-03-17] MEDS: Atorvastatin Calcium 20 MG Tablet PO (21:06)
[2021-03-17] MEDS: Hydroxychloroquine 200 MG Tablet PO (21:07)
[2021-03-17] MEDS: traMADol 50 MG Tablet PO (21:10)
[2021-03-17] MEDS: Ondansetron 8 MG Tablet PO (21:22)
[2021-03-17 22:13] VITALS: BP 104/77; PULSE 100; RESP 16; TEMP 36.5; O2SAT 98
[2021-03-18 02:00] VITALS: BP 110/80; PULSE 102; RESP 16; TEMP 36.6; O2SAT 98
[2021-03-18] MEDS: Phenobarbital 32.4 MG Tablet PO ×6 (02:01→22:08)
[2021-03-18] MEDS: Gabapentin 300 MG Capsule PO ×2 (05:57→17:42)
[2021-03-18] MEDS: Acetaminophen 500 MG Tablet 1000 MG PO ×3 (05:58→22:08)
[2021-03-18] MEDS: Ondansetron 8 MG Tablet PO ×2 (05:58→14:23)
[2021-03-18 06:20] VITALS: BP 109/69; PULSE 80; RESP 16; TEMP 36.9; O2SAT 97
[2021-03-18 07:38] LABS: Anion Gap 8 (5-15); BUN 7 mg/dL (7-18); BUN/Creat Ratio 9.9 RATIO (10-20); Calcium,Total 8.2 mg/dL (8.5-10.1); Chloride 104 mmol/L (98-107); EST Glomerular Filtration Rate 94 mL/min (>60); Est Glom Filt Rate - Afr Amer 114 mL/min (>60); Estimated Creatinine Clearance 93.75 ml/min; Glucose 90 mg/dL (74-106); Magnesium 1.6 mg/dL (1.6-2.6); Potassium 4.2 mmol/L (3.5-5.1); Sodium Level 138 mmol/L (136-145)
[2021-03-18 08:37] VITALS: BP 126/73; PULSE 94; RESP 18; TEMP 36.7; O2SAT 96
[2021-03-18] MEDS: hydrOXYzine PAM 25 MG Capsule 50 MG PO ×3 (08:46→18:49)
[2021-03-18] MEDS: Loperamide 2 MG Capsule PO (08:46)
[2021-03-18] MEDS: Thiamine Hydrochloride 100 MG Tablet PO (08:46)
[2021-03-18] MEDS: Pantoprazole Sodium 40 MG Tablet PO ×2 (08:46→22:08)
[2021-03-18] MEDS: Dicyclomine 10 MG Capsule 20 MG PO ×2 (08:46→17:42)
[2021-03-18] MEDS: Folic Acid 1 MG Tablet PO (08:46)
[2021-03-18] MEDS: Mag Hydrox/Al Hydrox/Simeth 30 ML UDC 15 ML PO (08:46)
[2021-03-18] MEDS: Aspirin 81 MG TAB.CHEW PO (08:46)
[2021-03-18] MEDS: traMADol 50 MG Tablet PO ×3 (08:47→22:08)
[2021-03-18] MEDS: Hydroxychloroquine 200 MG Tablet PO ×2 (08:47→17:37)
[2021-03-18] MEDS: Escitalopram Oxalate 10 MG Tablet PO (08:47)
--- NOTE | 2021-03-18 08:48 | NURSING ---
pt states that she drinks the larger bottle of barrientos goose, which is equivalent to 2/5ths, i start in the morning and that lasts me all day, until i go to bed, then i wake up in the night and have to drink some as well.
[2021-03-18] MEDS: LORazepam 1 MG Tablet PO (09:44)
--- NOTE | 2021-03-18 10:34 | ADDICTION ---
This sign writer letterer or painter met with PT to conduct ASAM, MSE, AUDIT assessments and to plan for d/c. PT A+Ox4 and participated appropriately. All assessments completed, faxed to [facility] and placed in PT chart. [facility] and is scheduled for intake assessment on 03/26/21. PT amiable. No transportation needs identified. PT reports [place].
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
[2021-03-18] MEDS: 0.9% Saline Lock 10 ML Syringe IV (10:42)
[2021-03-18] MEDS: LORazepam 2 MG/ML Syringe IV (10:42)
[2021-03-18 14:12] VITALS: BP 112/65; PULSE 94; RESP 16; TEMP 37.3; O2SAT 99
[2021-03-18 17:42] VITALS: BP 130/71; PULSE 85; RESP 18; TEMP 37; O2SAT 100
[2021-03-18 22:02] VITALS: BP 113/66; PULSE 93; RESP 18; TEMP 36.4; O2SAT 99
[2021-03-18] MEDS: Atorvastatin Calcium 20 MG Tablet PO (22:08)
[2021-03-18] MEDS: traZODone 100 MG Tablet PO (22:08)
[2021-03-19 03:24] VITALS: BP 110/67; PULSE 90; RESP 18; TEMP 36.6; O2SAT 96
[2021-03-19] MEDS: Acetaminophen 500 MG Tablet 1000 MG PO ×3 (03:27→22:47)
[2021-03-19] MEDS: Phenobarbital 32.4 MG Tablet PO ×6 (03:27→22:47)
[2021-03-19] MEDS: Gabapentin 300 MG Capsule PO ×2 (03:28→15:07)
[2021-03-19] MEDS: hydrOXYzine PAM 25 MG Capsule 50 MG PO ×3 (06:02→17:29)
[2021-03-19] MEDS: Ondansetron 8 MG Tablet PO (06:02)
[2021-03-19 09:16] VITALS: BP 126/79; PULSE 100; RESP 18; TEMP 36.6; O2SAT 96
[2021-03-19] MEDS: traMADol 50 MG Tablet PO (09:25)
[2021-03-19] MEDS: Hydroxychloroquine 200 MG Tablet PO ×2 (09:26→17:29)
[2021-03-19] MEDS: Escitalopram Oxalate 10 MG Tablet PO (09:26)
[2021-03-19] MEDS: Thiamine Hydrochloride 100 MG Tablet PO (09:26)
[2021-03-19] MEDS: LORazepam 1 MG Tablet PO ×2 (09:26→21:02)
[2021-03-19] MEDS: Folic Acid 1 MG Tablet PO (09:26)
[2021-03-19] MEDS: Pantoprazole Sodium 40 MG Tablet PO ×2 (09:26→22:47)
[2021-03-19] MEDS: Loperamide 2 MG Capsule PO (09:26)
[2021-03-19] MEDS: Aspirin 81 MG TAB.CHEW PO (09:28)
--- NOTE | 2021-03-19 10:37 | PCM.PN.HOSP ---
Subjective Subjective Patient states she is feeling better today than she was yesterday. She is still complaining of diarrhea although her nausea is improved and she is able to take p.o. without difficulty. She continues to have some tremor and has been difficult to walk with her crutch. She also complains of feeling internally anxious. Objective Data Objective Data Vital Signs: Vital Signs Temp Pulse Resp BP Pulse Ox 97.8 F 100 18 126/79 H 96 03/19/21 09:16 03/19/21 09:16 03/19/21 09:16 03/19/21 09:16 03/19/21 09:16 Oxygen Delivery Method Room Air Weight: 60.419 kg Body Mass Index (BMI) 20.8 Intake & Output: Intake and Output for Last 24 Hours 03/17/21 03/18/21 03/19/21 23:59 23:59 23:59 Intake Total 1000 / 1000 980 / 980 600 / 600 Balance 1000 / 1000 980 / 980 600 / 600 Lab / Micro Data Result Diagrams: 03/17/21 14:43 03/18/21 06:30 Physical Exam Const alert, oriented x3 and no apparent distress Constitutional Narrative: Middle-aged white female who appears older than stated age, sitting up in bed, nursing at bedside, patient is tremulous-mild, but appropriately interactive Exam Limitations: no limitations HEENT head/scalp atraumatic and moist oral mucous membranes Head and Scalp: normocephalic Resp normal respiratory effort, no retractions, no use of accessory muscles and clear to auscultation bilaterally Cardio regular rate, regular rhythm, S1 normal heart sound, S2 normal heart sound, no gallops and no clicks GI normal to inspection, nondistended, normoactive bowel sounds, soft to palpation, non-tender and non-distended Extremity normal to inspection and no clubbing, cyanosis or edema Peripheral Pulses: Yes pulses 2+ throughout Neuro oriented x3, CN's II-XII intact bilaterally, moves all extremities and no focal motor deficits Neuro Narrative: Mild tremor Sensorium / Orientation: awake, alert, oriented to person, oriented to place and oriented to time Psych Mood & Affect: anxious Assessment & Plan Assessment/Plan (1) Acute hyperactive alcohol withdrawal delirium: (2) Alcohol abuse: (3) Acute alcohol intoxication: (4) Anxiety and depression: PLAN: Assessment: Acute alcohol withdrawal Chronic alcohol dependence Left ankle fracture Lupus CAD History of stroke Hypertension Anxiety/depression GERD Plan: -Continue detox protocol with phenobarbital and supplemental medications -180 has evaluated the patient she has follow-up next at 180 -Continue as needed Ativan for any breakthrough symptoms -Surgery for her left ankle fracture is pending after detox -Continue home medications for chronic medical issues -Probable discharge on Tuesday as long as patient symptoms are well managed Charges/Coding Visit Charges Inpatient E&M: 54719 Subs Hosp L2
[2021-03-19 15:03] VITALS: BP 104/63; PULSE 83; RESP 16; TEMP 36.8; O2SAT 99
[2021-03-19 20:37] VITALS: BP 113/76; PULSE 74; RESP 16; TEMP 36.6; O2SAT 100
[2021-03-19 20:46] VITALS: PULSE 72
[2021-03-19] MEDS: Atorvastatin Calcium 20 MG Tablet PO (22:47)
--- NOTE | 2021-03-19 23:06 | NURSING ---
White pill found in pt's bed when I changed the linens. Pt thinks she may have dropped a pill earlier in the day. Looked it up in clinical pharmacology drug identifier and it was phenobarbital. Wasted pill in med room drug destroyer which was witnessed by Britt HORVATH.
[2021-03-20 02:30] VITALS: BP 114/61; PULSE 82; RESP 16; TEMP 36.9; O2SAT 100
[2021-03-20] MEDS: Phenobarbital 32.4 MG Tablet PO ×4 (02:43→21:45)
[2021-03-20 02:45] VITALS: BP 114/61; PULSE 82; RESP 16; TEMP 36.9; O2SAT 100
[2021-03-20] MEDS: Acetaminophen 500 MG Tablet 1000 MG PO ×3 (06:23→21:46)
[2021-03-20] MEDS: Aspirin 81 MG TAB.CHEW PO (08:59)
[2021-03-20] MEDS: Thiamine Hydrochloride 100 MG Tablet PO (08:59)
[2021-03-20] MEDS: Escitalopram Oxalate 10 MG Tablet PO (08:59)
[2021-03-20] MEDS: Pantoprazole Sodium 40 MG Tablet PO ×2 (08:59→21:46)
[2021-03-20] MEDS: Hydroxychloroquine 200 MG Tablet PO ×2 (09:00→16:47)
[2021-03-20] MEDS: Folic Acid 1 MG Tablet PO (09:00)
[2021-03-20 09:06] VITALS: BP 101/66; PULSE 65; PULSE 90; RESP 16; TEMP 36.9; O2SAT 96
[2021-03-20] MEDS: hydrOXYzine PAM 25 MG Capsule 50 MG PO (10:54)
[2021-03-20] MEDS: traMADol 50 MG Tablet PO ×2 (10:57→21:46)
--- NOTE | 2021-03-20 12:31 | PCM.PN.HOSP ---
Subjective Subjective Patient reports she still feels a little bit internally anxious/tremulous. She has difficulty ambulating but she is only utilizing 1 crutch to be nonweightbearing. We discussed the need for either 2 crutches or a walker. Awaiting physical therapy to see her. She reports otherwise she is feeling fairly well. Diarrhea has resolved and tachycardia has resolved. Objective Data Objective Data Vital Signs: Vital Signs Temp Pulse Resp BP Pulse Ox 98.4 F 90 16 101/66 96 03/20/21 09:06 03/20/21 09:06 03/20/21 09:06 03/20/21 09:06 03/20/21 09:06 Oxygen Delivery Method Room Air Weight: 60.419 kg Body Mass Index (BMI) 20.8 Intake & Output: Intake and Output for Last 24 Hours 03/18/21 03/19/21 03/20/21 23:59 23:59 23:59 Intake Total 980 / 980 600 / 600 Balance 980 / 980 600 / 600 Lab / Micro Data Result Diagrams: 03/17/21 14:43 03/18/21 06:30 Physical Exam Const alert, oriented x3 and no apparent distress Constitutional Narrative: Middle-aged white female who appears slightly older than stated age who is sitting up in bed, appears comfortable, nursing at bedside Orientation / Consciousness: awake, oriented to person, oriented to place and oriented to time Exam Limitations: no limitations HEENT normocephalic, head/scalp atraumatic and moist oral mucous membranes Head and Scalp: normocephalic Resp normal respiratory effort, no retractions, no use of accessory muscles and clear to auscultation bilaterally Cardio regular rate, regular rhythm, S1 normal heart sound, S2 normal heart sound, no murmurs, no rub, no gallops, no clicks and no JVD Peripheral Pulses: pulses 2+ throughout GI normal to inspection, nondistended, normoactive bowel sounds, soft to palpation, non-tender and non-distended Skin Lesions: no lesions Rashes: no rashes Trauma: no lacerations or abrasions Neuro oriented x3, CN's II-XII intact bilaterally, moves all extremities, no focal motor deficits, no sensory deficits noted and deep tendon reflexes 2+ bilaterally Sensorium / Orientation: awake, alert, oriented to person, oriented to place and oriented to time Speech: speech normal Psych mental status grossly normal and affect normal Psych Narrative: Appears less anxious today Assessment & Plan Assessment/Plan (1) Acute hyperactive alcohol withdrawal delirium: (2) Alcohol abuse: (3) Acute alcohol intoxication: (4) Anxiety and depression: PLAN: Assessment: Acute alcohol withdrawal Chronic alcohol dependence Left ankle fracture Lupus CAD History of stroke Hypertension Anxiety/depression GERD Plan: -Continue detox protocol with phenobarbital and supplemental medications -180 has evaluated the patient she has follow-up next at 180 -Continue as needed Ativan for any breakthrough symptoms -Surgery for her left ankle fracture is pending after detox -Continue home medications for chronic medical issues -Physical therapy to evaluate patient as she is ambulating with nonweightbearing status but only utilizing 1 crutch and feels unstable -Discussed that she should be using 2 crutches or a walker to be nonweightbearing -Probable discharge tomorrow as long as patient symptoms are well managed Charges/Coding Visit Charges Inpatient E&M: 31795 Subs Hosp L2
[2021-03-20 14:43] VITALS: BP 118/71; PULSE 73; RESP 18; TEMP 37; O2SAT 98
[2021-03-20 21:42] VITALS: BP 122/74; PULSE 80; RESP 18; TEMP 36.9; O2SAT 98
[2021-03-20] MEDS: Atorvastatin Calcium 20 MG Tablet PO (21:45)
[2021-03-20] MEDS: traZODone 100 MG Tablet PO (21:45)
[2021-03-21 03:33] VITALS: BP 114/65; PULSE 64; RESP 18; TEMP 36.6; O2SAT 96
[2021-03-21] MEDS: Acetaminophen 500 MG Tablet 1000 MG PO (03:36)
[2021-03-21] MEDS: Phenobarbital 32.4 MG Tablet PO ×2 (03:36→09:23)
[2021-03-21 09:10] VITALS: BP 108/73; PULSE 82; RESP 18; TEMP 36.4; O2SAT 92
[2021-03-21] MEDS: traMADol 50 MG Tablet PO (09:18)
[2021-03-21] MEDS: Thiamine Hydrochloride 100 MG Tablet PO (09:19)
[2021-03-21] MEDS: Pantoprazole Sodium 40 MG Tablet PO (09:19)
[2021-03-21] MEDS: Aspirin 81 MG TAB.CHEW PO (09:20)
[2021-03-21] MEDS: Hydroxychloroquine 200 MG Tablet PO (09:20)
[2021-03-21] MEDS: Escitalopram Oxalate 10 MG Tablet PO (09:21)
[2021-03-21] MEDS: Folic Acid 1 MG Tablet PO (09:21)
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
--- NOTE | 2021-03-21 10:05 | PCM.DC ---
Discharge Instructions Diet Discharge Diet: No restrictions Activity Weight Bearing Status: No weight bearing (Left lower extremity) Follow Up Care Test Results: Test results from this visit will be discussed in further detail at your follow-up appointment, if applicable. Discharge Plan Admission Admit Date/Time: 03/17/21 17:26 Primary Reason for Your Visit: Alcohol detox Attending Provider: Anabel Beach Primary Care Provider: Froylan Grant Instructions Patient Instructions: Alcoholism: Myths and Facts, Alcoholism Resources, Alcohol Addiction, Addiction Recovery Counseling Discharge Orders/Prescriptions Prescriptions: Continued aspirin 81 MG tablet,chewable 81 mg PO DAILY@0800 RF: 0 ondansetron 4 MG tablet 4 mg PO Q4H PRN PRN (Reason: vomitting) RF: 0 cyclobenzaprine 10 MG tablet 5 mg PO TID PRN PRN (Reason: Spasms) RF: 0 lorazepam 1 MG tablet 1 mg PO BID PRN PRN (Reason: Anxiety) RF: 0 hydroxychloroquine 200 MG tablet 200 mg PO BID RF: 0 atorvastatin 20 MG tablet 20 mg PO DAILY Qty: 30 RF: 0 trazodone 50 mg Tablet 25 - 50 mg PO QHS RF: 0 pantoprazole [Protonix] 40 mg Tablet,Delayed Release (Dr/Ec) 40 mg PO BID RF: 0 escitalopram oxalate [Lexapro] 10 mg Tablet 10 mg PO DAILY RF: 0 Referrals / Follow Up: Froylan Grant MD [Primary Care Provider] - Within 1 Week Disposition Disposition (needs filled in before D/C Order can be placed): Home, Self Care
--- NOTE | 2021-03-21 12:21 | CASEMGMT ---
requesting pt have a shower chair. TC to Rita FAYE who saw pt today who states pt would need a tub bench. ALEXANDRU CM in to pt room to discuss. Script given for tub bench and she states she will take to [facility] to get filled. She states that she has a walker at home and will use her crutches for nonweightbearing until she can get home to use walker. No further needs at this time.
[2021-03-21 12:30] VITALS: BP 102/76; PULSE 89; RESP 16; TEMP 36.6; O2SAT 94
== END 2021-03-21 12:31 | disposition home or self-care (01) | DRG 775 ==
LOC: ED 17:14 → MS3 17:37
PROVIDERS: Nurse Practitioner Family; Admitting Provider Hospitalist; Emergency Provider Emergency Medicine; PCP Internal Medicine; Visit Provider Internal Medicine
DX: F10.239 Alcohol dependence with withdrawal, unspecified (principal); F10.229 Alcohol dependence with intoxication, unspecified; Y90.8 Blood alcohol level of 240 mg/100 ml or more; K29.20 Alcoholic gastritis without bleeding; E87.6 Hypokalemia; S82.892D Other fracture of left lower leg, subsequent encounter for closed fracture with routine healing; X58.XXXD Exposure to other specified factors, subsequent encounter; I25.10 Atherosclerotic heart disease of native coronary artery without angina pectoris; I10 Essential (primary) hypertension; F32.9 Major depressive disorder, single episode, unspecified; F41.9 Anxiety disorder, unspecified; K21.9 Gastro-esophageal reflux disease without esophagitis; Z86.73 Personal history of transient ischemic attack (TIA), and cerebral infarction without residual deficits; M32.14 Glomerular disease in systemic lupus erythematosus; Z79.899 Other long term (current) drug therapy
CPT/HCPCS: 36415; 74176; 80048; 80053; 81001; 82077; 83690; 83735; 84703; 85025; 97110; 97116; 97162; 99282; J7030; A4216; J2405

== ENCOUNTER 2021-04-05 07:47 | Emergency (ER) | payer MEDICAID, SELFPAY ==
[2021-04-05 07:48] VITALS: BP 146/103; PULSE 110; RESP 16; TEMP 35.9; BMI 20.2
--- NOTE | 2021-04-05 08:04 | EX.ED.DYSGE1 ---
HPI History of Present Illness Chief Complaint: Palpitations Informant: patient Onset/Context/Timing Onset: Today Context: Sudden Onset Timing: Continuous Quality: Skipping beats Location: Chest Worsened by: Nothing Relieved by: Nothing Associated Symptoms Associated Symptoms: Nausea and vomiting Narrative Narrative: Patient presents with palpitations that began this morning. Patient states she feels like her heart is skipping beats. Patient states it has been constant throughout the morning today. Patient states nothing makes it better and nothing makes it worse. Patient states she did have some nausea and vomiting with this today. Patient denies any shortness of breath. Patient denies any pain in her chest. Patient states she did break out into a sweat with this. Patient denies any fevers or chills. Patient also states that she fell and injured her arm last week. Patient states it is mostly in her right wrist. Patient states she feels a popping sensation in her wrist. Patient denies any paresthesias or weakness. [facility] Medical History Anxiety CAD (coronary artery disease) Cervical neuropathy Dissection, vertebral artery Fibromyalgia Hypertension Kidney stones Lupus nephritis Lupus vasculitis Myocardial infarct Seizures Systemic lupus erythematosus Thrombocytopenia TIA (transient ischemic attack) Home Medications aspirin 81 mg PO DAILY@0800 05/31/18 [History Last Taken 3 Days Ago ~03/14/21] ondansetron 4 mg PO Q4H PRN PRN 06/26/19 [History Last Taken 2 Weeks Ago ~05/29/20] cyclobenzaprine 5 mg PO TID PRN PRN 06/12/20 [History Last Taken 06/11/20] lorazepam 1 mg PO BID PRN PRN 06/12/20 [History Last Taken 06/12/20] hydroxychloroquine 200 mg PO BID 09/26/20 [History Last Taken 3 Days Ago ~03/14/21] atorvastatin 20 mg PO DAILY #30 tab 09/30/20 [Rx Last Taken 3 Days Ago ~03/14/21] escitalopram oxalate [Lexapro] 10 mg PO DAILY 03/17/21 [History Last Taken 3 Days Ago ~03/14/21] pantoprazole [Protonix] 40 mg PO BID 03/17/21 [History Last Taken 3 Days Ago ~03/14/21] trazodone 25 - 50 mg PO QHS 03/17/21 [History Last Taken Unknown] cephalexin 500 mg PO Q6 #12 capsule 04/05/21 [Rx Last Taken Unknown] Allergy/AdvReac Type Severity Reaction Status Date / Time metoclopramide HCl Allergy anxious Verified 04/05/21 07:49 [From Reglan] peanut Allergy Anaphylaxis Verified 04/05/21 07:49 Sulfa (Sulfonamide Allergy Hives Verified 04/05/21 07:49 Antibiotics) prednisone AdvReac psychosis Verified 04/05/21 07:49 prochlorperazine AdvReac anxious Verified 04/05/21 07:49 [From Compazine] Family History (Updated 03/17/21 @ 17:45 by Nivia Rodriguez FIRER KILN, FIRER KILN-C) Father CAD (coronary artery disease) Diabetes Multiple sclerosis Mother Rheumatoid arthritis Surgical History H/O cervical spine surgery H/O knee surgery History of cholecystectomy History of hysterectomy S/P appendectomy Social History household members: none housing: apartment Smoking Status: Never smoker alcohol intake: current alcohol intake frequency: 3 or more drinks per day Alcohol type: hard liquor substance use type: does not use ROS ROS ED Constitutional Constitutional ED: Reports sweats; Denies chills or fever(s) Eyes Eyes: Denies blurry vision or change in vision ENT ENT ED: Denies rhinorrhea or sore throat Cardiovascular Cardiovascular: Reports palpitations; Denies chest pain Respiratory/Chest Respiratory/Chest: Denies cough or dyspnea Gastrointestinal Gastrointestinal: Reports nausea and vomiting Genitourinary Genitourinary ED: Denies dysuria or hematuria Musculoskeletal Musculoskeletal: Denies back pain or neck pain Integumentary Denies abscess or rash Neurologic Neurologic: Denies headache(s) or weakness Allergic/Immunologic Allergic/Immunologic ED: Denies mouth swelling or urticaria EXAM Physical Exam Const Vital Signs: 04/05/21 07:48 04/05/21 09:38 Temperature 96.7 F L Temperature Source Temporal Pulse Rate 110 H 84 Respiratory Rate 16 16 Blood Pressure 146/103 H 115/86 H Blood Pressure Mean 117 95 Pulse Ox 98 Positive well nourished and well developed General Appearance ED: well developed HEENT Reports moist mucous membranes Neck supple and no JVD Resp normal respiratory effort and clear to auscultation bilaterally Cardio regular rate, regular rhythm and no murmurs GI normal to inspection, nondistended, normoactive bowel sounds and non-tender Palpation: soft Extremity normal to inspection Extremity Narrative: There is tenderness over the right wrist. There is no edema or ecchymosis. There is no deformity. Range of motion was limited in all motions of the right wrist secondary to pain. Radial pulses are equal bilaterally. Sensation was intact to light touch in the radial, median, and ulnar areas. Strength is 5/5 in the radial, median, and ulnar areas. General Extremety ED: Yes tenderness; Negative for edema General Extremity: Negative for edema Neuro oriented x3, CN's II-XII intact bilaterally and no sensory deficits noted Sensorium / Orientation: alert Motor Exam: strength 5/5 throughout Psych mental status grossly normal Skin no rashes or lesions noted MDM MDM MDM Narrative Medical decision making narrative: EKG was obtained. On my interpretation, it showed a normal sinus rhythm with a rate of 91. UT interval, QRS interval, and QTc intervals were all normal. [place] was normal. There are no acute ST or T wave changes. Portable 1 view chest x-ray was obtained. On my interpretation, lung frye are clear. There is normal cardiac silhouette. Bony thorax is normal. There is no acute process noted. Radiologist also interpreted the x-ray and agrees. X-rays of the right wrist were obtained. There are 3 views. On my interpretation, there is no acute fracture. There is no dislocation. There is no soft tissue swelling. Radiologist also interpreted the x-rays and agrees. X-rays of the right elbow were obtained. There are 3 views. On my interpretation, there is no acute fracture. There is no dislocation. There is no soft tissue swelling. Radiologist also interpreted the x-rays and agrees. CBC and comprehensive metabolic profile were obtained and were essentially within normal limits. High-sensitivity troponin was less than 3. Urinalysis shows leukocyte esterase of 500 with positive nitrites and 25-50 white blood cells. Patient was given a dose of [place] for pain. Patient was given a dose of Zofran and Phenergan for her nausea. Patient was given IV fluids. Patient is feeling better on reevaluation. Patient was given her first dose of Keflex here. Patient was given a prescription for Keflex. Patient was instructed to follow-up with her primary care physician in 5 to 7 days. Patient understood and was agreeable with the plan. All questions were answered. Lab Data Attestation: I reviewed the patient's lab results. Labs: Laboratory Results - last 24 hr 04/05/21 04/05/21 04/05/21 08:15 08:15 09:35 WBC 6.5 RBC 4.44 Hgb 12.5 Hct 38.4 MCV 86.5 MCH 28.2 MCHC 32.6 RDW Std Deviation 51.4 H RDW Coeff of Leeann 16.2 H Plt Count 482 H MPV 9.1 Immature Gran % (Auto) 0.300 Neut % (Auto) 66.2 Lymph % (Auto) 22.7 Hood % (Auto) 8.3 Eos % (Auto) 1.1 Baso % (Auto) 1.4 H Absolute Neuts (auto) 4.3 Absolute Lymphs (auto) 1.47 Nucleated RBC % 0 Sodium 142 Potassium 3.3 L Chloride 102 Carbon Dioxide 29.0 Anion Gap 11 BUN 6 L Creatinine 0.69 Estim Creat Clear Calc 95.39 Est GFR (MDRD) Af Amer 116 Est GFR (MDRD) Non-Af 96 BUN/Creatinine Ratio 8.7 L Glucose 121 H Calcium 8.6 Total Bilirubin 0.30 AST 38 H ALT 27 Alkaline Phosphatase 90 Troponin I High Sens < 3.0 L Total Protein 7.4 Albumin 3.6 Globulin 3.8 Albumin/Globulin Ratio 0.9 Urine Color Yellow Urine Clarity Cloudy Urine pH 7.0 Ur Specific [place] 1.010 Urine Protein 30 H Urine Glucose (UA) Normal Urine Ketones 5 H Urine Occult Blood 150 H Urine Nitrite Positive H Urine Bilirubin Negative Urine Urobilinogen Normal Ur Leukocyte Esterase 500 H Urine RBC 0-5 SEEN Urine WBC 25-50 SEEN Ur Squamous Epith Cells 0-5 SEEN Urine Bacteria 3+ Urine Mucus 0 SEEN Radiography Chest X-Ray - ED: 1 View, Read by ED Physician, Read by Radiologist and Normal Diagnostic Testing: Radiology Impression Chest X-Ray 04/05/21 08:07 IMPRESSION: Normal x-ray examination of the chest. Electronically Signed: Arnie Baker MD at 9:26 EDT Tel , Service support , Elbow X-Ray 04/05/21 08:09 IMPRESSION: Normal x-ray examination of the elbow. Electronically Signed: Arnie Baker MD at 9:26 EDT Tel , Service support , Wrist X-Ray 04/05/21 08:09 IMPRESSION: Normal x-ray examination of the wrist. Electronically Signed: Arnie Baker MD at 9:25 EDT Tel , Service support , EKG Initial EKG: Attestation: I personally reviewed and interpreted this EKG as follows: Interpretation: Sinus Rhythm (91) and No Acute Injury Pattern Prior EKG tracings: available for review Prior: Unchanged (06/13/2020) Discharge Plan Triage Chief Complaint: Palpitations ED Provider: Darnell Giles Dx/Rx/DC Orders Clinical Impression: Urinary tract infection, Right wrist sprain Instructions: ED CYSTITIS Female Adult, ED Wrist Sprain Prescriptions: New cephalexin [cephalexin] 500 MG capsule 500 mg PO Q6 Qty: 12 RF: 0 No Action aspirin 81 MG tablet,chewable 81 mg PO DAILY@0800 RF: 0 ondansetron 4 MG tablet 4 mg PO Q4H PRN PRN (Reason: vomitting) RF: 0 cyclobenzaprine 10 MG tablet 5 mg PO TID PRN PRN (Reason: Spasms) RF: 0 lorazepam 1 MG tablet 1 mg PO BID PRN PRN (Reason: Anxiety) RF: 0 hydroxychloroquine 200 MG tablet 200 mg PO BID RF: 0 atorvastatin 20 MG tablet 20 mg PO DAILY Qty: 30 RF: 0 trazodone 50 mg Tablet 25 - 50 mg PO QHS RF: 0 pantoprazole [Protonix] 40 mg Tablet,Delayed Release (Dr/Ec) 40 mg PO BID RF: 0 escitalopram oxalate [Lexapro] 10 mg Tablet 10 mg PO DAILY RF: 0 Primary Care Provider: Froylan Grant Referrals: Froylan Grant MD [Primary Care Provider] - 3-5 Days Disposition Disposition: Home, Self Care
--- NOTE | 2021-04-05 08:07 | RAD_ITS ---
STUDY: X-RAY CHEST REASON FOR EXAM: Female, 50 years old. Palpitations TECHNIQUE: Single AP portable view of the chest. COMPARISON: 04/03/2018 FINDINGS: Status post anterior cervical discectomy and fusion lower cervical spine. The lungs are clear and expanded. There is no demonstrated pleural abnormality. Normal size heart. Normal mediastinum and umberto. Normal visualized pulmonary arteries. Normal visualized aortic arch and descending thoracic aorta. Normal visualized thoracic spine. Normal visualized ribs, clavicles, and shoulders. There is no demonstrated abnormality of the visualized soft tissue structures of the upper abdomen. RAD/Chest 1 View (Portable) IMPRESSION: Normal x-ray examination of the chest. Electronically Signed: Arnie Baker MD at 9:26 EDT Tel , Service support ,
--- NOTE | 2021-04-05 08:08 | EKG12_ITS ---
Test Reason : Blood Pressure : / mmHG Vent. Rate : 091 BPM Atrial Rate : 091 BPM P-R Int : 140 ms QRS Dur : 076 ms QT Int : 374 ms P-R-T Axes : 047 026 030 degrees QTc Int : 460 ms Normal sinus rhythm Low voltage QRS Confirmed by ROSE HICKMAN, BARNEY ([id number]), continuity editor ANH BEARD ([id number]) on 04/08/2021 9:18:29 AM Referred By: EDPHY Confirmed By:BARNEY ROSE MD
--- NOTE | 2021-04-05 08:09 | RAD_ITS ---
STUDY: X-RAY - RIGHT WRIST REASON FOR EXAM: Female, 50 years old. fell, wrist pain TECHNIQUE: 3 view(s) of the wrist were obtained. COMPARISON: None. FINDINGS: Normal visualized distal radius and ulna. Normal radiocarpal articulation. Normal distal radioulnar articulation. Normal carpal bones. Normal carpal articulations. Normal carpometacarpal articulation of the thumb. Normal second through fifth carpometacarpal articulations. Normal visualized metacarpal bones. The soft tissue structures are unremarkable. RAD/Wrist min 3 Views IMPRESSION: Normal x-ray examination of the wrist. Electronically Signed: Arnie Baker MD at 9:25 EDT Tel , Service support ,
--- NOTE | 2021-04-05 08:09 | RAD_ITS ---
STUDY: X-RAY - RIGHT ELBOW REASON FOR EXAM: Female, 50 years old. fell, pain TECHNIQUE: 3 view(s) of the elbow. COMPARISON: None. FINDINGS: Normal visualized humerus, radius and ulna. Normal radiocapitellar and ulnotrochlear articulations. The soft tissue structures are unremarkable. RAD/Elbow min 3 Views IMPRESSION: Normal x-ray examination of the elbow. Electronically Signed: Arnie Baker MD at 9:26 EDT Tel , Service support ,
[2021-04-05 08:29] LABS: Absolute Lymphocyte Count 1.47 X10^3/uL (0.83-4.51); Absolute Neutrophil Count 4.3 X10^3/uL (2.0-7.7); Basophil# 0.09 X10^3/uL; Basophil% 1.4 % (0-1); Eosinophil# 0.07 X10^3/uL; Eosinophils% 1.1 % (0-5); Hematocrit 38.4 % (37-47); Hemoglobin 12.5 g/dL (12.0-15.0); Lymphocyte # 1.47 X10^3/ul (0.83-4.51); Lymphocyte % 22.7 % (19-41); Mean Corp Hgb Conc 32.6 g/dL (32-36); Mean Corpuscular Hgb 28.2 pg (27.0-32.0); Mean Corpuscular Volume 86.5 fL (81-99); Mean Platelet Vol. 9.1 fl (6.2-12.0); Monocyte# 0.54 X10^3/uL; Monocyte% 8.3 % (0-10); NRBC Flagged by Analyzer 0 % (0-5); Neutrophil # 4.28 X10^3/uL (2.7-7.7); Neutrophil % 66.2 % (47-70); Platelet Count 482 K/mm3 (150-450); RBC Distribution Width CV 16.2 % (11.6-14.6); RBC Distribution Width SD 51.4 fl (35.1-43.9); Red Blood Count 4.44 M/mm3 (4.2-5.4); White Blood Count 6.5 K/mm3 (4.4-11.0)
[2021-04-05] MEDS: HYDROcodone Bitartrate/Apap 5/325 Tablet PO (08:33)
[2021-04-05] MEDS: Ondansetron 4 MG/2 ML Vial IV (08:33)
[2021-04-05] MEDS: 0.9% Normal Saline 1,000 ML 1000 ML IV (08:34)
[2021-04-05 08:47] LABS: ALB/GLOB Ratio 0.9 RATIO (0.9-2.4); AST(SGOT) 38 U/L (15-37); Alanine Aminotransfer ALT/SGPT 27 U/L (13-56); Albumin, Serum 3.6 g/dL (3.2-5.0); Alkaline Phosphatase 90 U/L (45-117); Anion Gap 11 (5-15); BUN 6 mg/dL (7-18); BUN/Creat Ratio 8.7 RATIO (10-20); Calcium,Total 8.6 mg/dL (8.5-10.1); Chloride 102 mmol/L (98-107); Creatinine, Serum 0.69 mg/dL (0.55-1.02); EST Glomerular Filtration Rate 96 mL/min (>60); Est Glom Filt Rate - Afr Amer 116 mL/min (>60); Estimated Creatinine Clearance 95.39 ml/min; Globulin 3.8 g/dL (2.2-4.2); Glucose 121 mg/dL (74-106); Potassium 3.3 mmol/L (3.5-5.1); Protein, Total 7.4 g/dL (6.4-8.2); Sodium Level 142 mmol/L (136-145); Troponin-I HS < 3.0 pg/mL (3.0-53.7)
[2021-04-05] MEDS: proMETHazine 25 MG/ML Syringe 6.25 MG IM (09:33)
[2021-04-05 09:38] VITALS: BP 115/86; PULSE 84; RESP 16; O2SAT 98
[2021-04-05 09:40] LABS: Mucous, Urine 0 SEEN /hpf (<or=2+)
[2021-04-05 09:44] LABS: Color, Urine Yellow (Yellow); Glucose, Dipstick Normal (Normal); Ketone-Dipstick 5 mg/dl (Negative); Leukocyte Esterase-Dipstick 500 /ul (Negative); Nitrite-Dipstick Positive (Negative); Occult Blood-Urine 150 /ul (Negative); Protein-Dipstick 30 mg/dl (Negative); Urine Bilirubin Dipstick Negative (Negative); Urine Clarity Cloudy (Clear); Urine Urobilinogen Normal (Normal)
[2021-04-05 09:51] LABS: Bacteria 3+ /hpf (None Seen); Red Blood Cells-Urine 0-5 SEEN /hpf (0-5); Squamous Epithelial Cells - UA 0-5 SEEN /hpf (5-10); White Blood Cells 25-50 SEEN /hpf (0-5)
[2021-04-05 10:27] VITALS: BP 130/81; PULSE 73; RESP 16; O2SAT 97
[2021-04-05] MEDS: Cephalexin 500 MG Capsule PO (10:31)
== END 2021-04-05 10:35 | disposition home or self-care (01) ==
PROVIDERS: Emergency Provider Emergency Medicine; PCP Internal Medicine
DX: N39.0 Urinary tract infection, site not specified (principal); S63.501A Unspecified sprain of right wrist, initial encounter; R00.2 Palpitations; F41.9 Anxiety disorder, unspecified; I25.10 Atherosclerotic heart disease of native coronary artery without angina pectoris; M79.7 Fibromyalgia; I10 Essential (primary) hypertension; Z86.73 Personal history of transient ischemic attack (TIA), and cerebral infarction without residual deficits; Z79.899 Other long term (current) drug therapy; W18.30XA Fall on same level, unspecified, initial encounter; Y93.89 Activity, other specified; Y92.89 Other specified places as the place of occurrence of the external cause; Y99.8 Other external cause status
CPT/HCPCS: 71045; 73080; 73110; 80053; 81001; 84484; 85025; 93005; 96361; 96372; 96374; 99285; J7030; A4216; J2405

== ENCOUNTER 2021-04-23 11:21 | Inpatient (IN) | payer MEDICAID, SELFPAY ==
[2021-04-23 11:22] VITALS: BP 114/101; PULSE 83; RESP 16; TEMP 35.8; O2SAT 99; BMI 19.8
[2021-04-23 11:39] VITALS: BP 114/101; PULSE 83; RESP 16; O2SAT 98
--- NOTE | 2021-04-23 11:39 | CM.ED ---
Addendum entered by Bebe Robles 04/23/21 12:44: TIMOTHY spoke to Adeola at [facility] and updated her that patient was in the Emergency Room requesting detox from alcohol via [facility] program. Demographic information provided to Adeola LINO Original Note: TIMOTHY Note TIMOTHY Referral Reason: [facility] and Alcohol detox Referral Source: Case Find SW noted that patient reports that she is here for alcohol detox. She reports she last drank last night and has been drinking alot. When asked to quantify how much she drinks she said that she drinks vodka, [place] Hard Lemonade 8% and red bull. Patient [facility]. Patient said that at discharge she will participate in Intensive Outpatient program at [facility]. Plan: Lázaro LINO
[2021-04-23] MEDS: Phenobarbital 32.4 MG Tablet PO (13:03)
[2021-04-23 13:06] LABS: Absolute Lymphocyte Count 1.18 X10^3/uL (0.83-4.51); Absolute Neutrophil Count 2.7 X10^3/uL (2.0-7.7); Basophil# 0.05 X10^3/uL; Basophil% 1.1 % (0-1); Eosinophil# 0.02 X10^3/uL; Eosinophils% 0.5 % (0-5); Hematocrit 36.5 % (37-47); Hemoglobin 11.9 g/dL (12.0-15.0); Lymphocyte # 1.18 X10^3/ul (0.83-4.51); Lymphocyte % 27.1 % (19-41); Mean Corp Hgb Conc 32.6 g/dL (32-36); Mean Corpuscular Hgb 28.4 pg (27.0-32.0); Mean Corpuscular Volume 87.1 fL (81-99); Mean Platelet Vol. 9.3 fl (6.2-12.0); Monocyte# 0.38 X10^3/uL; Monocyte% 8.7 % (0-10); NRBC Flagged by Analyzer 0 % (0-5); Neutrophil # 2.71 X10^3/uL (2.7-7.7); Neutrophil % 62.4 % (47-70); Platelet Count 270 K/mm3 (150-450); Red Blood Count 4.19 M/mm3 (4.2-5.4); White Blood Count 4.4 K/mm3 (4.4-11.0)
[2021-04-23 13:21] LABS: ALB/GLOB Ratio 0.9 RATIO (0.9-2.4); AST(SGOT) 58 U/L (15-37); Alanine Aminotransfer ALT/SGPT 32 U/L (13-56); Albumin, Serum 3.1 g/dL (3.2-5.0); Alkaline Phosphatase 73 U/L (45-117); Anion Gap 8 (5-15); BUN 6 mg/dL (7-18); BUN/Creat Ratio 9.6 RATIO (10-20); Calcium,Total 7.9 mg/dL (8.5-10.1); Chloride 101 mmol/L (98-107); Creatinine, Serum 0.62 mg/dL (0.55-1.02); EST Glomerular Filtration Rate 108 mL/min (>60); Est Glom Filt Rate - Afr Amer 131 mL/min (>60); Estimated Creatinine Clearance 103.71 ml/min; Globulin 3.5 g/dL (2.2-4.2); Glucose 106 mg/dL (74-106); Lipase 89 U/L (73-393); Potassium 2.8 mmol/L (3.5-5.1); Protein, Total 6.6 g/dL (6.4-8.2); Sodium Level 141 mmol/L (136-145)
--- NOTE | 2021-04-23 14:44 | EX.ED.SAOD ---
HPI History of Present Illness Chief Complaint: Substance Abuse Detail of Chief Complaint: Alcohol detox Informant: patient Onset/Context/Timing Onset: Yesterday Context: Gradual Onset Timing: Continuous Associated Symptoms Associated Symptoms: Positive for diarrhea*, seizure and palpatations; Negative for vomiting*, fever*, rash*, tremor, change in mental status, trauma, suicidal ideation and homicidal ideation Narrative Narrative: Patient presents requesting detox from alcohol. Patient states she drinks at least 1 bottle of vodka per day plus approximately 4-5 other drinks per day. Patient states her last drink was last night. Patient states she did have a seizure yesterday and has been having diarrhea. Patient also admits to some palpitations. Patient denies any vomiting. Patient denies any fevers or chills. Patient denies any suicidal homicidal ideations. Patient denies any auditory or visual hallucinations. Patient also admits to some upper abdominal pain. Patient states she has a history of pancreatitis. Patient states she was also recently treated for a urinary tract infection but still has some mild dysuria. [facility] Medical History Anxiety Asthma CAD (coronary artery disease) Cervical neuropathy Depression Dissection, vertebral artery Fibromyalgia Hypertension Kidney stones Lupus nephritis Lupus vasculitis Myocardial infarct Seizures Systemic lupus erythematosus Thrombocytopenia TIA (transient ischemic attack) Home Medications aspirin 81 mg PO DAILY@0800 05/31/18 [History Last Taken 3 Days Ago ~03/14/21] ondansetron 4 mg PO Q4H PRN PRN 06/26/19 [History Last Taken 2 Weeks Ago ~05/29/20] cyclobenzaprine 5 mg PO TID PRN PRN 06/12/20 [History Last Taken 06/11/20] lorazepam 1 mg PO BID PRN PRN 06/12/20 [History Last Taken 06/12/20] hydroxychloroquine 200 mg PO BID 09/26/20 [History Last Taken 3 Days Ago ~03/14/21] atorvastatin 20 mg PO DAILY #30 tab 09/30/20 [Rx Last Taken 3 Days Ago ~03/14/21] pantoprazole [Protonix] 40 mg PO BID 03/17/21 [History Last Taken 3 Days Ago ~03/14/21] trazodone 25 - 50 mg PO PRN PRN 03/17/21 [History Last Taken Unknown] methotrexate sodium 15 mg PO QWEEK 04/23/21 [History Last Taken Unknown] sertraline [Zoloft] 150 mg PO DAILY 04/23/21 [History Last Taken Unknown] Allergy/AdvReac Type Severity Reaction Status Date / Time metoclopramide HCl Allergy anxious Verified 04/23/21 11:22 [From Reglan] peanut Allergy Anaphylaxis Verified 04/23/21 11:22 Sulfa (Sulfonamide Allergy Hives Verified 04/23/21 11:22 Antibiotics) prednisone AdvReac psychosis Verified 04/23/21 11:22 prochlorperazine AdvReac anxious Verified 04/23/21 11:22 [From Compazine] Family History (Updated 03/17/21 @ 17:45 by Nivia Rodriguez NP, HIV COUNSELOR-C) Father CAD (coronary artery disease) Diabetes Multiple sclerosis Mother Rheumatoid arthritis Surgical History H/O cervical spine surgery H/O knee surgery History of cholecystectomy History of hysterectomy S/P appendectomy Social History household members: none housing: apartment Smoking Status: Never smoker alcohol intake: current alcohol intake frequency: 3 or more drinks per day Alcohol type: hard liquor substance use type: does not use ROS ROS ED Constitutional Constitutional ED: Denies chills or fever(s) Eyes Eyes: Denies blurry vision or change in vision ENT ENT ED: Denies rhinorrhea or sore throat Cardiovascular Cardiovascular: Reports palpitations; Denies chest pain Respiratory/Chest Respiratory/Chest: Denies cough or dyspnea Gastrointestinal Gastrointestinal: Reports diarrhea; Denies nausea or vomiting Genitourinary Genitourinary ED: Reports dysuria; Denies hematuria Musculoskeletal Musculoskeletal: Denies back pain or neck pain Integumentary Denies abscess or rash Neurologic Neurologic: Reports headache(s); Denies weakness Allergic/Immunologic Allergic/Immunologic ED: Denies mouth swelling or urticaria EXAM Physical Exam Const Vital Signs: 04/23/21 11:22 04/23/21 11:39 Temperature 96.5 F L Temperature Source Temporal Pulse Rate 83 83 Respiratory Rate 16 16 Blood Pressure 114/101 H 114/101 H Blood Pressure Mean 105 105 Pulse Ox 99 98 Oxygen Delivery Method Room Air Room Air Positive well nourished and well developed General Appearance ED: well developed HEENT Reports moist mucous membranes Neck supple and no JVD Resp normal respiratory effort and clear to auscultation bilaterally Cardio regular rate, regular rhythm and no murmurs GI normal to inspection, nondistended, normoactive bowel sounds, soft to palpation, non-tender and non-distended Palpation: soft Extremity normal to inspection General Extremety ED: Negative for edema or tenderness General Extremity: Negative for edema Neuro oriented x3, CN's II-XII intact bilaterally and no sensory deficits noted Sensorium / Orientation: alert Motor Exam: strength 5/5 throughout Psych mental status grossly normal Thought Content: No suicidality, No homicidality and No hallucination(s) Skin no rashes or lesions noted MDM MDM MDM Narrative Medical decision making narrative: CBC was within normal limits. Comprehensive metabolic profile showed mild hypokalemia of 2.8. Liver function tests were normal. Lipase was normal. Serum alcohol level was elevated at 318. Urinalysis and urine tox screen were ordered and are pending. Patient was given a dose of oral potassium. Case was discussed with the hospitalist. He will admit the patient to his service. Patient understood and was agreeable with the plan. All questions were answered. Lab Data Attestation: I reviewed the patient's lab results. Labs: Laboratory Results - last 24 hr 04/23/21 04/23/21 04/23/21 13:00 13:00 13:00 WBC 4.4 RBC 4.19 L Hgb 11.9 L Hct 36.5 L MCV 87.1 MCH 28.4 MCHC 32.6 RDW Std Deviation 52.0 H RDW Coeff of Leeann 17.0 H Plt Count 270 MPV 9.3 Immature Gran % (Auto) 0.200 Neut % (Auto) 62.4 Lymph % (Auto) 27.1 [place] % (Auto) 8.7 Eos % (Auto) 0.5 Baso % (Auto) 1.1 H Absolute Neuts (auto) 2.7 Absolute Lymphs (auto) 1.18 Nucleated RBC % 0 Sodium 141 Potassium 2.8 L Chloride 101 Carbon Dioxide 32.0 Anion Gap 8 BUN 6 L Creatinine 0.62 Estim Creat Clear Calc 103.71 Est GFR (MDRD) Af Amer 131 Est GFR (MDRD) Non-Af 108 BUN/Creatinine Ratio 9.6 L Glucose 106 Calcium 7.9 L Phosphorus Magnesium Total Bilirubin 0.20 AST 58 H ALT 32 Alkaline Phosphatase 73 Total Protein 6.6 Albumin 3.1 L Globulin 3.5 Albumin/Globulin Ratio 0.9 Lipase 89 Ethyl Alcohol 318.0 H* 04/23/21 13:00 WBC RBC Hgb Hct MCV MCH MCHC RDW Std Deviation RDW Coeff of Leeann Plt Count MPV Immature Gran % (Auto) Neut % (Auto) Lymph % (Auto) [place] % (Auto) Eos % (Auto) Baso % (Auto) Absolute Neuts (auto) Absolute Lymphs (auto) Nucleated RBC % Sodium Potassium Chloride Carbon Dioxide Anion Gap BUN Creatinine Estim Creat Clear Calc Est GFR (MDRD) Af Amer Est GFR (MDRD) Non-Af BUN/Creatinine Ratio Glucose Calcium Phosphorus 3.7 Magnesium 2.0 Total Bilirubin AST ALT Alkaline Phosphatase Total Protein Albumin Globulin Albumin/Globulin Ratio Lipase Ethyl Alcohol Discharge Plan Triage Chief Complaint: Substance Abuse ED Provider: Darnell Giles Dx/Rx/DC Orders Primary Care Provider: Froylan Grant
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
[2021-04-23] MEDS: Potassium Chloride Oral Tablet 20 MEQ 40 MEQ PO (15:24)
--- NOTE | 2021-04-23 15:27 | EKG12_ITS ---
Test Reason : SUBSTANCE ABUSE Blood Pressure : / mmHG Vent. Rate : 065 BPM Atrial Rate : 065 BPM P-R Int : 130 ms QRS Dur : 092 ms QT Int : 424 ms P-R-T Axes : 037 042 058 degrees QTc Int : 440 ms Normal sinus rhythm Possible Anterior infarct , age undetermined , cannot be excluded Abnormal ECG Confirmed by ROSE HICKMAN, BARNEY ([id number]), deputy editor in chief ANH BEARD ([id number]) on 05/01/2021 9:21:13 AM Referred By: SOCRATES Confirmed By:BARNEY ROSE MD
[2021-04-23] MEDS: Ondansetron ODT 4 MG Tablet PO (15:31)
[2021-04-23 15:46] VITALS: PULSE 84; BMI 19.8
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
[2021-04-23 16:28] LABS: Phosphorus 3.7 mg/dL (2.5-4.9)
[2021-04-23 16:38] VITALS: BP 119/81; PULSE 73; RESP 15; TEMP 36.2; O2SAT 99
[2021-04-23 17:17] VITALS: BP 118/84; PULSE 84; RESP 16; TEMP 36.8; O2SAT 98
[2021-04-23] MEDS: Lactated Ringers 1,000 ML 125 ML IV (19:53)
[2021-04-23] MEDS: Potassium Chloride 10mEq/100mL 10 MEQ/100 ML IV.SOLN. 100 MEQ IV BOLUS ×4 (19:53→23:45)
[2021-04-23 20:02] VITALS: BP 125/78; PULSE 97; RESP 18; TEMP 36.8; O2SAT 99
[2021-04-23] MEDS: Phenobarbital 32.4 MG Tablet 64.8 MG PO ×2 (20:03→23:45)
[2021-04-23] MEDS: Atorvastatin Calcium 20 MG Tablet PO (20:04)
[2021-04-23] MEDS: Ondansetron 4 MG/2 ML Vial IV (21:16)
[2021-04-23] MEDS: Methotrexate 2.5 MG Tablet 15 MG PO (21:16)
[2021-04-23 22:10] LABS: Bacteria 0 SEEN /hpf (None Seen); Mucous, Urine 0 SEEN /hpf (<or=2+)
[2021-04-23 22:15] LABS: Color, Urine Yellow (Yellow); Glucose, Dipstick Normal (Normal); Ketone-Dipstick Negative (Negative); Leukocyte Esterase-Dipstick Negative /ul (Negative); Nitrite-Dipstick Negative (Negative); Occult Blood-Urine 25 /ul (Negative); Protein-Dipstick Negative (Negative); Urine Bilirubin Dipstick Negative (Negative); Urine Clarity Sl. Cloudy (Clear); Urine Urobilinogen Normal (Normal)
[2021-04-23 22:28] LABS: Red Blood Cells-Urine 0-5 SEEN /hpf (0-5); Squamous Epithelial Cells - UA 0-5 SEEN /hpf (5-10); White Blood Cells 0-5 SEEN /hpf (0-5)
[2021-04-23 22:43] LABS: Amphetamine Urine VISTA NEGATIVE (<1000 ng/mL); Barbiturate Urine VISTA POSITIVE (< 200 ng/mL); Benzodiazepine Urine VISTA NEGATIVE (< 200 ng/mL); Cocaine Urine VISTA NEGATIVE (< 300 ng/mL); Ecstacy Urine VISTA NEGATIVE (< 500 ng/mL); Methadone Urine VISTA NEGATIVE (< 300 ng/mL); PCP Urine VISTA NEGATIVE (< 25 ng/mL); THC Urine VISTA NEGATIVE (< 50 ng/mL); Vista UDS pH Range 7
[2021-04-24 00:30] VITALS: BP 120/81; PULSE 96; RESP 18; TEMP 37; O2SAT 98
[2021-04-24] MEDS: Phenobarbital 32.4 MG Tablet 64.8 MG PO ×6 (03:08→23:04)
[2021-04-24 03:47] VITALS: BP 125/89; PULSE 93; RESP 16; TEMP 36.9; O2SAT 95
[2021-04-24] MEDS: hydrOXYzine PAM 25 MG Capsule 50 MG PO ×5 (06:25→23:04)
[2021-04-24 06:27] VITALS: BP 145/99; PULSE 87; RESP 18; TEMP 36.9; O2SAT 97
[2021-04-24] MEDS: Ondansetron 4 MG/2 ML Vial IV (06:38)
--- NOTE | 2021-04-24 07:15 | US_ITS ---
STUDY: ABDOMINAL ULTRASOUND - RIGHT UPPER QUADRANT REASON FOR VISIT: Female, 50 years old right upper quadrant pain, elevated LFTs TECHNIQUE: Ultrasound evaluation of the right upper quadrant was performed with real-time and static barrientos-scale imaging. TECHNICAL QUALITY: Adequate. COMPARISON: None. FINDINGS: Liver: The liver measures 15.4 cm. There is increased echogenicity consistent with fatty infiltration. The bile ducts are within normal limits. There is hepatic color flow. The direction of portal flow is hepatopetal. There is no demonstrated mass lesion. Gallbladder: The patient is status post cholecystectomy. Common Bile Duct (C.B.D.): The common bile duct measures 3.1 mm. Pancreas: Normal size of the head, body and tail of the pancreas. There is increased echogenicity of the pancreas. There is no demonstrated pancreatic mass or cyst. Right Kidney: Normal size of the right kidney. The right kidney measures 10.2 x 5.3 x 4.6 cm. Normal renal cortex. The right cortex measures 1.3 cm. There is no demonstrated renal mass or cyst. There is no right hydronephrosis. US/Abdomen Limited IMPRESSION: Fatty liver, small amount of peripheral ascites Previous cholecystectomy Nonspecific echogenic pancreas Electronically Signed: Hilario Yip MD at 8:11 EDT , Service support ,
[2021-04-24 09:19] LABS: Absolute Lymphocyte Count 0.89 X10^3/uL (0.83-4.51); Absolute Neutrophil Count 2.7 X10^3/uL (2.0-7.7); Basophil# 0.04 X10^3/uL; Basophil% 0.9 % (0-1); Eosinophils% 2.2 % (0-5); Hematocrit 32.5 % (37-47); Hemoglobin 10.6 g/dL (12.0-15.0); Lymphocyte # 0.89 X10^3/ul (0.83-4.51); Mean Corp Hgb Conc 32.6 g/dL (32-36); Mean Corpuscular Hgb 28.4 pg (27.0-32.0); Mean Corpuscular Volume 87.1 fL (81-99); Mean Platelet Vol. 9.2 fl (6.2-12.0); Monocyte% 15.7 % (0-10); NRBC Flagged by Analyzer 0 % (0-5); Neutrophil # 2.71 X10^3/uL (2.7-7.7); Neutrophil % 60.8 % (47-70); Platelet Count 237 K/mm3 (150-450); RBC Distribution Width SD 49.6 fl (35.1-43.9); Red Blood Count 3.73 M/mm3 (4.2-5.4); White Blood Count 4.5 K/mm3 (4.4-11.0)
[2021-04-24 09:45] VITALS: BP 144/98; PULSE 81; RESP 18; TEMP 37.3; O2SAT 99
[2021-04-24 09:47] LABS: ALB/GLOB Ratio 0.9 RATIO (0.9-2.4); AST(SGOT) 54 U/L (15-37); Alanine Aminotransfer ALT/SGPT 30 U/L (13-56); Albumin, Serum 2.8 g/dL (3.2-5.0); Alkaline Phosphatase 68 U/L (45-117); Anion Gap 7 (5-15); BUN 6 mg/dL (7-18); Calcium,Total 7.7 mg/dL (8.5-10.1); Chloride 104 mmol/L (98-107); Creatinine, Serum 0.75 mg/dL (0.55-1.02); EST Glomerular Filtration Rate 88 mL/min (>60); Est Glom Filt Rate - Afr Amer 106 mL/min (>60); Estimated Creatinine Clearance 85.73 ml/min; Globulin 3.2 g/dL (2.2-4.2); Glucose 93 mg/dL (74-106); Potassium 3.6 mmol/L (3.5-5.1); Sodium Level 139 mmol/L (136-145)
[2021-04-24] MEDS: 0.9% Saline Lock 10 ML Syringe IV ×2 (09:55→11:42)
[2021-04-24] MEDS: Folic Acid 1 MG Tablet PO (09:59)
[2021-04-24] MEDS: Gabapentin 300 MG Capsule PO (09:59)
[2021-04-24] MEDS: Thiamine Hydrochloride 100 MG Tablet PO (09:59)
[2021-04-24] MEDS: Loperamide 2 MG Capsule PO (10:07)
[2021-04-24] MEDS: Hydroxychloroquine 200 MG Tablet PO ×2 (10:08→19:07)
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
--- NOTE | 2021-04-24 12:40 | PN.HOSP_ITS ---
Subjective Subjective Patient complain of abdominal pain does not have much tenderness on palpation. She is asking for pain medication. She also history of lupus and is on hydroxychloroquine and methotrexate Objective Data Objective Data Vital Signs: Vital Signs Temp Pulse Resp BP Pulse Ox 99.2 F H 81 18 144/98 H 99 04/24/21 09:45 04/24/21 09:45 04/24/21 09:45 04/24/21 09:45 04/24/21 09:45 Oxygen Delivery Method Room Air Weight: 130 lb 8.218 oz Body Mass Index (BMI) 19.8 Intake & Output: Intake and Output for Last 24 Hours 04/22/21 04/23/21 04/24/21 23:59 23:59 23:59 Intake Total 1050 / 1300 1909 Balance 1050 / 1300 1909 Lab / Micro Data Result Diagrams: 04/24/21 09:10 04/24/21 09:10 Labs: Laboratory Results - last 24 hr 04/23/21 13:00: WBC 4.4, RBC 4.19 L, Hgb 11.9 L, Hct 36.5 L, MCV 87.1, MCH 28.4, MCHC 32.6, RDW Std Deviation 52.0 H, RDW Coeff of Leeann 17.0 H, Plt Count 270, MPV 9.3, Immature Gran % (Auto) 0.200, Neut % (Auto) 62.4, Lymph % (Auto) 27.1, [place] % (Auto) 8.7, Eos % (Auto) 0.5, Baso % (Auto) 1.1 H, Absolute Neuts (auto) 2.7, Absolute Lymphs (auto) 1.18, Nucleated RBC % 0 04/23/21 13:00: Sodium 141, Potassium 2.8 L, Chloride 101, Carbon Dioxide 32.0, Anion Gap 8, BUN 6 L, Creatinine 0.62, Estim Creat Clear Calc 103.71, Est GFR (MDRD) Af Amer 131, Est GFR (MDRD) Non-Af 108, BUN/Creatinine Ratio 9.6 L, Glucose 106, Calcium 7.9 L, Total Bilirubin 0.20, AST 58 H, ALT 32, Alkaline Phosphatase 73, Total Protein 6.6, Albumin 3.1 L, Globulin 3.5, Albumin/Globulin Ratio 0.9, Lipase 89 04/23/21 13:00: Ethyl Alcohol 318.0 H* 04/23/21 13:00: Phosphorus 3.7, Magnesium 2.0 04/23/21 22:00: Urine Color Yellow, Urine Clarity Sl. Cloudy, Urine pH 7.0, Ur Specific [place] 1.010, Urine Protein Negative, Urine Glucose (UA) Normal, Urine Ketones Negative, Urine Occult Blood 25 H, Urine Nitrite Negative, Urine Bilirubin Negative, Urine Urobilinogen Normal, Ur Leukocyte Esterase Negative, Urine RBC 0-5 SEEN, Urine WBC 0-5 SEEN, Ur Squamous Epith Cells 0-5 SEEN, Urine Bacteria 0 SEEN, Urine Mucus 0 SEEN 04/23/21 22:00: Urine Opiates Screen NEGATIVE, Urine Methadone Screen NEGATIVE, Ur Barbiturates Screen POSITIVE H, Ur Phencyclidine Scrn NEGATIVE, Ur Amphetamines Screen NEGATIVE, U Methamphetamin-MDMA NEGATIVE, U Benzodiazepines Scrn NEGATIVE, Urine Cocaine Screen NEGATIVE, U Cannabinoids Screen NEGATIVE, Ur Drug Screen Comment 04/24/21 09:10: Sodium 139, Potassium 3.6, Chloride 104, Carbon Dioxide 28.0, Anion Gap 7, BUN 6 L, Creatinine 0.75, Estim Creat Clear Calc 85.73, Est GFR (MDRD) Af Amer 106, Est GFR (MDRD) Non-Af 88, BUN/Creatinine Ratio 8.0 L, Glucose 93, Calcium 7.7 L, Total Bilirubin 0.40, AST 54 H, ALT 30, Alkaline P hosphatase 68, Total Protein 6.0 L, Albumin 2.8 L, Globulin 3.2, Albumin/Globulin Ratio 0.9 04/24/21 09:10: WBC 4.5, RBC 3.73 L, Hgb 10.6 L, Hct 32.5 L, MCV 87.1, MCH 28.4, MCHC 32.6, RDW Std Deviation 49.6 H, RDW Coeff of Leeann 16.0 H, Plt Count 237, MPV 9.2, Immature Gran % (Auto) 0.400, Neut % (Auto) 60.8, Lymph % (Auto) 20.0, [place] % (Auto) 15.7 H, Eos % (Auto) 2.2, Baso % (Auto) 0.9, Absolute Neuts (auto) 2.7, Absolute Lymphs (auto) 0.89, Nucleated RBC % 0 Radiography Diagnostic Testing: Radiology Impression Abdomen Ultrasound 04/24/21 07:15 IMPRESSION: Fatty liver, small amount of peripheral ascites Previous cholecystectomy Nonspecific echogenic pancreas Electronically Signed: Hilario Yip MD at 8:11 EDT , Service support , Physical Exam Narrative General: Alert, awake oriented x3, Cooperative. HEENT: Atraumatic, PERRLA, EOMI, Normocephalic Oral: No Gingival or Mucosal Lesions/ Ulcerations Neck: Supple, No JVD, Negative Carotid Bruits Lungs: Air entry diminished in bilateral lung bases. No crepitation/rhonchi Cardiovascular: Regular rate, Regular Rhythm, Normal S1, Normal S2, No murmurs Abdomen: Mild tenderness present over epigastric and right upper quadrant region. Bowel Sounds Present, Soft, Non-Distended : No renal angle tenderness. No suprapubic tenderness. Extremities: No edema, Capillary Refill Less than 3 Seconds. Mild tremors Skin: No rashes, No breakdown Musculoskeletal: No Tenderness to Palpation of Joints or Extremities Neurological: Cranial nerves II-XII grossly intact, Deep Tendon Reflexes 2+/4 and Symmetrical, Neuro grossly intact Psych/Mental Status: Quiet and appropriate Assessment & Plan Assessment/Plan (1) HTN (hypertension): QUALIFIERS: Hypertension type: primary hypertension Qualified Code(s): I10 - Essential (primary) hypertension (2) Acute hyperactive alcohol withdrawal delirium: (3) Hypokalemia: (4) Anxiety and depression: PLAN: This is a 50-year-old female coming to ER for acute alcohol withdrawal syndrome. 1 acute alcohol intoxication with impending alcohol withdrawal syndrome with history of alcohol withdrawal seizure: Patient is started having auditory and visual hallucinations. Admitted on MedSurg. On IV fluid Ringer lactate. Patient is being started on phenobarbital based other adjunctive medications for stabilization of alcohol withdrawal syndrome. On thiamine and folic acid. Consult 180. 2. Acute on chronic abdominal pain probably alcoholic hepatitis: Patient lipase is normal. Right upper quadrant sonogram reported fatty liver with a small amount of peripheral ascites. Previous cholecystectomy. AST 58, ALT 32. Alkaline phosphatase 73. Albumin 3.1. Lipase 89 3. Severe hypokalemia: Potassium 40 MICU IV ordered. Serum alcohol and phosphorus level. Potassium 3.6: KCl 40 M EQ oral daily 4. Lupus vasculitis and nephritis, coronary artery disease: Patient is on hydroxychloroquine, methotrexate, folic acid cyclobenzaprine, atorvastatin and baby aspirin at home. Hold baby aspirin. Protonix 40 mg IV twice daily. Zofran as needed. Home medications continued 5. Possible GI bleed preoperative from alcoholic gastritis: Patient complain of intermittent hematemesis and dark stool possible melena. Stool for occult blood ordered. Monitor H&H. Patient never had EGD. 04/24: Mild decrease in hemoglobin from 12-10.6. 6. Anxiety and depression: Patient on trazodone, sertraline and hy droxychloroquine at home. Twelve-lead EKG ordered to look for QTc interval. 7. VTE prophylaxis: Bilateral SCDs. Clinical Impression(s) from Imaging Studies Abdomen Ultrasound 04/24/21 07:15 IMPRESSION: Fatty liver, small amount of peripheral ascites Previous cholecystectomy Nonspecific echogenic pancreas Charges/Coding Visit Charges Inpatient E&M: 37663 Subs Hosp L2
[2021-04-24] MEDS: oxyCODONE 5 MG Tablet PO ×2 (15:18→20:22)
[2021-04-24 20:15] VITALS: BP 134/91; PULSE 82; RESP 16; TEMP 37.1; O2SAT 98
[2021-04-24] MEDS: Atorvastatin Calcium 20 MG Tablet PO (21:41)
[2021-04-24] MEDS: DiphenhydrAMINE 25 MG Capsule PO (21:41)
[2021-04-25] MEDS: Phenobarbital 32.4 MG Tablet 64.8 MG PO ×6 (03:19→22:12)
[2021-04-25] MEDS: hydrOXYzine PAM 25 MG Capsule 50 MG PO ×3 (03:19→15:52)
[2021-04-25 03:23] VITALS: BP 109/74; PULSE 85; RESP 16; TEMP 37; O2SAT 97
[2021-04-25] MEDS: Hydroxychloroquine 200 MG Tablet PO ×2 (09:05→15:53)
[2021-04-25] MEDS: Thiamine Hydrochloride 100 MG Tablet PO (09:06)
[2021-04-25] MEDS: Folic Acid 1 MG Tablet PO (09:06)
[2021-04-25] MEDS: 0.9% Saline Lock 10 ML Syringe IV (09:11)
[2021-04-25 09:23] VITALS: BP 110/56; PULSE 82; RESP 18; TEMP 37.1; O2SAT 100
[2021-04-25] MEDS: DiphenhydrAMINE 25 MG Capsule PO ×2 (11:56→22:12)
[2021-04-25] MEDS: oxyCODONE 5 MG Tablet PO ×2 (11:57→22:11)
--- NOTE | 2021-04-25 12:38 | PN.HOSP_ITS ---
Subjective Subjective Patient abdominal pain is better. Tremors and shaking's are better. No nausea or vomiting. No hallucination delusion. Did not had seizure. Objective Data Objective Data Vital Signs: Vital Signs Temp Pulse Resp BP Pulse Ox 98.7 F 82 18 110/56 L 100 04/25/21 09:23 04/25/21 09:23 04/25/21 09:23 04/25/21 09:23 04/25/21 09:23 Oxygen Delivery Method Room Air Weight: 130 lb 8.218 oz Body Mass Index (BMI) 19.8 Intake & Output: Intake and Output for Last 24 Hours 04/23/21 04/24/21 04/25/21 23:59 23:59 23:59 Intake Total 1050 / 1300 2380 / 2780 950 / 950 Balance 1050 / 1300 2380 / 2780 950 / 950 Lab / Micro Data Result Diagrams: 04/24/21 09:10 04/24/21 09:10 Physical Exam Narrative General: Alert, awake oriented x3, Cooperative. HEENT: Atraumatic, PERRLA, EOMI, Normocephalic Oral: No Gingival or Mucosal Lesions/ Ulcerations Neck: Supple, No JVD, Negative Carotid Bruits Lungs: Air entry equal in bilateral lung bases. No crepitation/rhonchi Cardiovascular: Regular rate, Regular Rhythm, Normal S1, Normal S2, No murmurs Abdomen: Very slight tenderness present over epigastric and right upper quadrant region. Bowel Sounds Present, Soft, Non-Distended : No renal angle tenderness. No suprapubic tenderness. Extremities: No edema, Capillary Refill Less than 3 Seconds. Fine tremors. Skin: No rashes, No breakdown Musculoskeletal: No Tenderness to Palpation of Joints or Extremities Neurological: Cranial nerves II-XII grossly intact, Deep Tendon Reflexes 2+/4 and Symmetrical, Neuro grossly intact Psych/Mental Status: Quiet and appropriate Assessment & Plan Assessment/Plan (1) HTN (hypertension): QUALIFIERS: Hypertension type: primary hypertension Qualified Code(s): I10 - Essential (primary) hypertension (2) Acute hyperactive alcohol withdrawal delirium: (3) Hypokalemia: (4) Anxiety and depression: PLAN: This is a 50-year-old female coming to ER for acute alcohol withdrawal syndrome. 1 acute alcohol intoxication with impending alcohol withdrawal syndrome with history of alcohol withdrawal seizure: Patient is started having auditory and visual hallucinations. Admitted on MedSurg. On IV fluid Ringer lactate. [place] ent is being started on phenobarbital based other adjunctive medications for stabilization of alcohol withdrawal syndrome. On thiamine and folic acid. Consult 180. 04/25: Withdrawal symptoms are well controlled. 2. Acute on chronic abdominal pain probably alcoholic hepatitis: Patient lipase is normal. Right upper quadrant sonogram reported fatty liver with a small amount of peripheral ascites. Previous cholecystectomy. AST 58, ALT 32. Alkaline phosphatase 73. Albumin 3.1. Lipase 89 04/25 abdominal pain has improved. 3. Severe hypokalemia: Potassium 40 MICU IV ordered. Serum alcohol and phosphorus level. Potassium 3.6: KCl 40 M EQ oral daily 4. Lupus vasculitis and nephritis, coronary artery disease: Patient is on hydroxychloroquine, methotrexate, folic acid cyclobenzaprine, atorvastatin and baby aspirin at home. Hold baby aspirin. Protonix 40 mg IV twice daily. Zofran as needed. Home medications continued 5. Possible GI bleed preoperative from alcoholic gastritis: Patient complain of intermittent hematemesis and dark stool possible melena. Stool for occult blood ordered. Monitor H&H. Patient never had EGD. 04/24: Mild decrease in hemoglobin from 12-10.6. 6. Anxiety and depression: Patient on trazodone, sertraline and hydroxychloroquine at home. Twelve-lead EKG ordered to look for QTc interval. 7. VTE prophylaxis: Bilateral SCDs. Clinical Impression(s) from Imaging Studies Abdomen Ultrasound 04/24/21 07:15 IMPRESSION: Fatty liver, small amount of peripheral ascites Previous cholecystectomy Nonspecific echogenic pancreas Charges/Coding Visit Charges Inpatient E&M: 50435 Subs Hosp L2
[2021-04-25 15:55] VITALS: BP 106/78; PULSE 83; RESP 16; TEMP 36.1; O2SAT 100
[2021-04-25 22:06] VITALS: BP 135/89; PULSE 81; RESP 18; TEMP 36.8; O2SAT 100
[2021-04-25] MEDS: Atorvastatin Calcium 20 MG Tablet PO (22:11)
[2021-04-26] MEDS: hydrOXYzine PAM 25 MG Capsule 50 MG PO ×2 (00:12→03:52)
[2021-04-26 03:46] VITALS: BP 97/76; PULSE 75; RESP 18; TEMP 37.1; O2SAT 99
[2021-04-26] MEDS: Phenobarbital 32.4 MG Tablet 64.8 MG PO ×2 (03:50→09:11)
[2021-04-26] MEDS: oxyCODONE 5 MG Tablet PO ×2 (03:52→09:11)
[2021-04-26] MEDS: Thiamine Hydrochloride 100 MG Tablet PO (09:05)
[2021-04-26] MEDS: Hydroxychloroquine 200 MG Tablet PO (09:05)
[2021-04-26] MEDS: Folic Acid 1 MG Tablet PO (09:05)
[2021-04-26] MEDS: DiphenhydrAMINE 25 MG Capsule PO (09:11)
--- NOTE | 2021-04-26 09:30 | PCM.DC ---
Discharge Instructions Diet Discharge Diet: No restrictions Activity Discharge Activity: Return to Normal Activity and May Not Drive Dressing / Incision Call your doctor if you observe: Fever of 101 or Higher, Coldness, Increased Pain, Numbness or Tingling, Change in Color, Inability to urinate, Inability to have a bowel movement, Using more than 1 pad per hour, Shortness of breath, Dizziness, Fainting spells, Swelling in the ankles, Chest pain, Prolonged hiccupping, Increased palpitations (irregular heartbeat), Calf discomfort and Uncontrolled pain Follow Up Care Test Results: Test results from this visit will be discussed in further detail at your follow-up appointment, if applicable. Discharge Plan Admission Admit Date/Time: 04/23/21 15:26 Primary Reason for Your Visit: Acute alcohol withdrawal syndrome Attending Provider: Tyler Barclay Primary Care Provider: Froylan Grant Instructions Patient Instructions: Alcohol Withdrawal: What to Expect Additional Instructions / Restrictions: Follow-up outpatient alcohol rehab program set up by 180 Discharge Orders/Prescriptions Prescriptions: New thiamine HCl (vitamin B1) [Vitamin B-1] 100 mg Tablet 100 mg PO DAILYCM Qty: 30 RF: 0 folic acid 1 mg Tablet 1 mg PO 0800 Qty: 0 RF: 0 Continued aspirin 81 MG tablet,chewable 81 mg PO DAILY@0800 RF: 0 ondansetron 4 MG tablet 4 mg PO Q4H PRN PRN (Reason: vomitting) RF: 0 cyclobenzaprine 10 MG tablet 5 mg PO TID PRN PRN (Reason: Spasms) RF: 0 lorazepam 1 MG tablet 1 mg PO BID PRN PRN (Reason: Anxiety) RF: 0 hydroxychloroquine 200 MG tablet 200 mg PO BID RF: 0 atorvastatin 20 MG tablet 20 mg PO DAILY Qty: 30 RF: 0 trazodone 50 mg Tablet 25 - 50 mg PO PRN PRN (Reason: Insomnia) RF: 0 pantoprazole [Protonix] 40 mg Tablet,Delayed Release (Dr/Ec) 40 mg PO BID RF: 0 sertraline [Zoloft] 100 mg Tablet 150 mg PO DAILY RF: 0 methotrexate sodium 15 mg Tablet 15 mg PO QWEEK Qty: 0 RF: 0 Referrals / Follow Up: Jacki Thacker DO [STAFF PHYSICIAN] - In 1 Week Froylan Grant MD [Primary Care Provider] - In 1 Week Disposition Disposition (needs filled in before D/C Order can be placed): Home, Self Care
[2021-04-26 09:34] VITALS: BP 120/80; PULSE 80; RESP 20; TEMP 36.6; O2SAT 99
--- NOTE | 2021-04-26 09:35 | DS.PCM_ITS ---
Providers Date of Admission: 04/23/21 Primary Care Physician: Dr. Froylan Grant MD Reason For Visit: ACUTE ALCOHOL WITHDRAWAL SYNDROME Diagnosis Discharge Diagnosis (1) HTN (hypertension): Status: Chronic Code(s): I10 - Essential (primary) hypertension Qualifiers: Hypertension type: primary hypertension Qualified Code(s): I10 - Essential (primary) hypertension (2) Acute hyperactive alcohol withdrawal delirium: Status: Acute Code(s): F10.231 - Alcohol dependence with withdrawal delirium (3) Hypokalemia: Status: Acute Code(s): E87.6 - Hypokalemia (4) Anxiety and depression: Status: Chronic Code(s): F41.9 - Anxiety disorder, unspecified; F32.9 - Major depressive disorder, single episode, unspecified Medications at Discharge Home Medications aspirin 81 mg PO DAILY@0800 05/31/18 ondansetron 4 mg PO Q4H PRN PRN 06/26/19 cyclobenzaprine 5 mg PO TID PRN PRN 06/12/20 lorazepam 1 mg PO BID PRN PRN 06/12/20 hydroxychloroquine 200 mg PO BID 09/26/20 atorvastatin 20 mg PO DAILY #30 tab 09/30/20 pantoprazole [Protonix] 40 mg PO BID 03/17/21 trazodone 25 - 50 mg PO PRN PRN 03/17/21 sertraline [Zoloft] 150 mg PO DAILY 04/23/21 folic acid 1 mg PO 0800 #0 tab 04/26/21 methotrexate sodium 15 mg PO QWEEK #0 tab 04/26/21 thiamine HCl (vitamin B1) [Vitamin B-1] 100 mg PO DAILYCM #30 tab 04/26/21 Hospital Course Summary of Care Provided Hospital Course: This is a 50-year-old female coming to ER for acute alcohol withdrawal syndrome. 1 acute alcohol intoxication with impending alcohol withdrawal syndrome with history of alcohol withdrawal seizure: Patient had auditory and visual hallucinations at time of admission. [facility] Was on IV fluid Ringer lactate. The patient was treated with phenobarbital based other adjunctive medications for stabilization of alcohol withdrawal syndrome. On thiamine and folic acid. Was seen by 180 and outpatient rehab set up. Acute alcohol withdrawal symptoms resolved. 2. Acute on chronic abdominal pain probably alcoholic hepatitis: Patient lipase is normal. Right upper quadrant sonogram reported fatty liver with a small amount of peripheral ascites. Previous cholecystectomy. AST 58, ALT 32. Alkaline phosphatase 73. Albumin 3.1. Lipase 89. Abdominal pain resolved. 04/25 abdominal pain has improved. 3. Severe hypokalemia: Potassium 40 M EQ IV given. Hypokalemia was corrected. Serum magnesium and phosphorus levels were normal. 4. Lupus vasculitis and nephritis, coronary artery disease: Patient is on hydroxychloroquine, methotrexate, folic acid cyclobenzaprine, atorvastatin and baby aspirin at home. Hold baby aspirin. Protonix 40 mg IV twice daily. Zofran as needed. Home medications continued 5. Possible GI bleed preoperative from alcoholic gastritis: Patient complain of intermittent hematemesis and dark stool possible melena. Stool for occult blood ordered. Monitor H&H. Patient never had EGD. 04/24: Mild decrease in hemoglobin from 12-10.6. 6. Anxiety and depression: Patient on trazodone, sertraline and hydroxychloroquine at home. Twelve-lead EKG ordered to look for QTc interval. 7. VTE prophylaxis: Bilateral SCDs. Discharge medication reconciliation done. Discharge follow-up instructions completed. Discharge process discussed with the patient and all questions were answered to patient's satisfaction. Follow-up with Dr. Thacker in 1 week Total time spent, exact 35 minutes on discharge meds reconciliation, examination, coordination of care with nurses and ancillary staff, review of imaging and blood test and discussion with the patient on follow-up instructions Physical Exam Narrative Seen and examined. Patient symptoms are well controlled. No shaking tremors, hallucinations or delusions or delusion. General: Alert, awake oriented x3, Cooperative. HEENT: Atraumatic, PERRLA, EOMI, Normocephalic Oral: No Gingival or Mucosal Lesions/ Ulcerations Neck: Supple, No JVD, Negative Carotid Bruits Lungs: Air entry equal in bilateral lung bases. No crepitation/rhonchi Cardiovascular: Regular rate, Regular Rhythm, Normal S1, Normal S2, No murmurs Abdomen: No tenderness. Bowel Sounds Present, Soft, Non-Distended : No renal angle tenderness. No suprapubic tenderness. Extremities: No edema, Capillary Refill Less than 3 Seconds. Fine tremors. Skin: No rashes, No breakdown Musculoskeletal: No Tenderness to Palpation of Joints or Extremities Neurological: Cranial nerves II-XII grossly intact, Deep Tendon Reflexes 2+/4 and Symmetrical, Neuro grossly intact Psych/Mental Status: Quiet and appropriate Weight / BMI Weight Weight: 130 lb 8.218 oz Body Mass Index (BMI) 19.8 ABG / Lab / Microbiology Data Result Diagrams: 04/24/21 09:10 04/24/21 09:10 D/C Instructions Discharge Diet: No restrictions Call your doctor if you observe: Fever of 101 or Higher, Coldness, Increased Pain, Numbness or Tingling, Change in Color, Inability to urinate, Inability to have a bowel movement, Using more than 1 pad per hour, Shortness of breath, Dizziness, Fainting spells, Swelling in the ankles, Chest pain, Prolonged hiccupping, Increased palpitations (irregular heartbeat), Calf discomfort and Uncontrolled pain Meaningful Use Info Meaningful Use Diagnoses (Choose all that apply): None applicable Discharge Plan Admission Admit Date/Time: 04/23/21 15:26 Primary Reason for Your Visit: Acute alcohol withdrawal syndrome Attending Provider: Tyler Barclay Primary Care Provider: Froylan Grant Instructions Patient Instructions: Alcohol Withdrawal: What to Expect Additional Instructions / Restrictions: Follow-up outpatient alcohol rehab program set up by 180 Discharge Orders/Prescriptions Prescriptions: New thiamine HCl (vitamin B1) [Vitamin B-1] 100 mg Tablet 100 mg PO DAILYCM Qty: 30 RF: 0 folic acid 1 mg Tablet 1 mg PO 0800 Qty: 0 RF: 0 Continued aspirin 81 MG tablet,chewable 81 mg PO DAILY@0800 RF: 0 ondansetron 4 MG tablet 4 mg PO Q4H PRN PRN (Reason: vomitting) RF: 0 cyclobenzaprine 10 MG tablet 5 mg PO TID PRN PRN (Reason: Spasms) RF: 0 lorazepam 1 MG tablet 1 mg PO BID PRN PRN (Reason: Anxiety) RF: 0 hydroxychloroquine 200 MG tablet 200 mg PO BID RF: 0 atorvastatin 20 MG tablet 20 mg PO DAILY Qty: 30 RF: 0 trazodone 50 mg Tablet 25 - 50 mg PO PRN PRN (Reason: Insomnia) RF: 0 pantoprazole [Protonix] 40 mg Tablet,Delayed Release (Dr/Ec) 40 mg PO BID RF: 0 sertraline [Zoloft] 100 mg Tablet 150 mg PO DAILY RF: 0 methotrexate sodium 15 mg Tablet 15 mg PO QWEEK Qty: 0 RF: 0 Referrals / Follow Up: Jacki Thacker DO [STAFF PHYSICIAN] - In 1 Week Froylan Grant MD [Primary Care Provider] - In 1 Week Disposition Disposition (needs filled in before D/C Order can be placed): Home, Self Care Charges/Coding Visit Charges Inpatient E&M: 74542 Disch Hosp
[2021-04-26 10:30] VITALS: BP 115/73; PULSE 84; RESP 20; TEMP 36.6; O2SAT 99
[2021-04-26] MEDS: 0.9% Saline Lock 10 ML Syringe IV (10:35)
== END 2021-04-26 11:52 | disposition home or self-care (01) | DRG 775 ==
LOC: ED 12:27 → MS3 15:42
PROVIDERS: Admitting Provider Internal Medicine; Emergency Provider Emergency Medicine; PCP Internal Medicine; Visit Provider Internal Medicine
DX: F10.239 Alcohol dependence with withdrawal, unspecified (principal); E87.6 Hypokalemia; I25.10 Atherosclerotic heart disease of native coronary artery without angina pectoris; I77.6 Arteritis, unspecified; M32.14 Glomerular disease in systemic lupus erythematosus; K29.21 Alcoholic gastritis with bleeding; K70.11 Alcoholic hepatitis with ascites; K76.0 Fatty (change of) liver, not elsewhere classified; F32.9 Major depressive disorder, single episode, unspecified; F41.9 Anxiety disorder, unspecified; Z79.899 Other long term (current) drug therapy; Y90.8 Blood alcohol level of 240 mg/100 ml or more; G89.29 Other chronic pain
CPT/HCPCS: 36415; 76705; 80053; 80307; 81001; 82077; 83690; 83735; 84100; 85025; 93005; 99285; J7120; A4216; J2405; J8610

== ENCOUNTER 2021-05-06 16:24 | Inpatient (IN) | payer MEDICAID, SELFPAY ==
[2021-05-06 16:24] VITALS: BP 130/101; PULSE 104; RESP 16; TEMP 36.6; O2SAT 97; BMI 19.6
--- NOTE | 2021-05-06 16:43 | EDS_ITS ---
HPI History of Present Illness Chief Complaint: Substance Abuse Narrative Narrative: 51-year-old female with history of EtOH abuse presenting with EtOH intoxication. She states that she thinks she drank about a gallon of vodka today. Patient has a reported history of drinking about 1/5 of vodka per day. Patient was recently detoxed at [facility]. She states initially that she had only been drinking today however her friend at the bedside states that she had been drinking all week. He states that she drank about 8 ounces of vodka 15 minutes prior to arrival. Patient does state that she feels like she is intoxicated. She has concerns that she is very intoxicated. Patient does express concern for her previous EtOH withdrawal symptoms including seizure, hallucinations, confusion. She does want to have EtOH detox again. [facility] Medical History Anxiety and depression Asthma CAD (coronary artery disease) Cervical neuropathy Depression Dissection, vertebral artery Fibromyalgia HTN (hypertension) Kidney stones Lupus nephritis Lupus vasculitis Myocardial infarct Seizures Systemic lupus erythematosus Thrombocytopenia TIA (transient ischemic attack) Home Medications aspirin 81 mg PO DAILY@0800 05/31/18 [History Last Taken 05/06/21] ondansetron 4 mg PO Q4H PRN PRN 06/26/19 [History Last Taken 05/01/21] cyclobenzaprine 5 mg PO TID PRN PRN 06/12/20 [History Last Taken 05/05/21] lorazepam 1 mg PO BID PRN PRN 06/12/20 [History Last Taken 05/05/21] hydroxychloroquine 200 mg PO BID 09/26/20 [History Last Taken 05/06/21] pantoprazole [Protonix] 40 mg PO BID 03/17/21 [History Last Taken 05/06/21] trazodone 50 mg PO PRN PRN 03/17/21 [History Last Taken 05/05/21] Bmx Mouth Wash 1 unit OTHER PRN PRN 05/06/21 [History Last Taken 05/06/21] atorvastatin 20 mg PO QHS 05/06/21 [History Last Taken 05/05/21] duloxetine [Cymbalta] 30 mg PO DAILY 05/06/21 [History Last Taken 05/06/21] folic acid 1 mg PO 0800 05/06/21 [History Last Taken 05/06/21] methotrexate sodium 15 mg PO FR 05/06/21 [History Last Taken 05/01/21] thiamine HCl (vitamin B1) [Vitamin B-1] 100 mg PO DAILYCM 05/06/21 [History Last Taken 05/06/21] Allergy/AdvReac Type Severity Reaction Status Date / Time metoclopramide HCl Allergy anxious Verified 05/06/21 16:27 [From Reglan] peanut Allergy Anaphylaxis Verified 05/06/21 16:27 Sulfa (Sulfonamide Allergy Hives Verified 05/06/21 16:27 Antibiotics) prednisone AdvReac psychosis Verified 05/06/21 16:27 prochlorperazine AdvReac anxious Verified 05/06/21 16:27 [From Compazine] Family History Father CAD (coronary artery disease) Diabetes Multiple sclerosis Melanoma Mother Rheumatoid arthritis Melanoma Surgical History H/O cervical spine surgery H/O knee surgery History of cholecystectomy History of hysterectomy S/P appendectomy Social History household members: none housing: apartment Smoking Status: Never smoker alcohol intake: current alcohol intake frequency: 3 or more drinks per day Alcohol type: hard liquor substance use type: does not use ROS ROS ED Constitutional Constitutional ED: Denies fever(s) or subjective Eyes Eyes: Denies blurry vision ENT ENT ED: Denies rhinorrhea or sore throat Cardiovascular Cardiovascular: Denies chest pain or palpitations Respiratory/Chest Respiratory/Chest: Denies cough, dyspnea or sputum Gastrointestinal Gastrointestinal: Denies abdominal pain, constipation, diarrhea, nausea or vomiting Genitourinary Genitourinary ED: Denies dysuria or urinary frequency Musculoskeletal Musculoskeletal: Denies arthralgias or myalgias Integumentary Denies abscess or rash Neurologic Neurologic: Denies headache(s) or paresthesias Psychiatric Psychiatric: Denies anxiety, depression, suicidal ideation or suicidal thoughts EXAM Physical Exam Const Vital Signs: 05/06/21 16:24 Temperature 98 F Temperature Source Temporal Pulse Rate 104 H Respiratory Rate 16 Blood Pressure 130/101 H Blood Pressure Mean 110 Pulse Ox 97 Oxygen Delivery Method Room Air Positive well nourished General Appearance ED: NAD; Negative for pallor HEENT Reports dry mucous membranes atraumatic and trauma Mouth ED: Yes dry mucous membranes Mouth: dry mucous membranes Eyes PERRL and EOMs intact bilaterally General Eye ED: Negative for pale conjunctiva or scleral icterus Resp normal respiratory effort and clear to auscultation bilaterally Cardio regular rate and regular rhythm GI soft to palpation, non-tender, non-distended and no masses Extremity General Extremety ED: Negative for edema or tenderness General Extremity: Negative for edema Neuro oriented x3, CN's II-XII intact bilaterally and no sensory deficits noted Sensorium / Orientation: alert Motor Exam: strength 5/5 throughout Psych mental status grossly normal and thought process normal Skin General Skin Exam: Negative for jaundice or pallor Lesions: no lesions Rashes: no rashes MDM MDM MDM Narrative Medical decision making narrative: 51-year-old female presenting for alcohol detox. Patient is currently intoxicated and states she drank about a gallon of vodka today. Patient states that previous admission she had seizure as well as hallucinations. She is interested in detox today. Patient's vital signs are stable and she is afebrile. Patient was given a dose of Ativan for anxiety. Patient CBC is unremarkable. CMP shows normal renal function. Electrolytes are normal. Total bilirubin is slightly elevated 1.10. Direct bilirubin is within normal limits. AST is slightly elevated at 107. Patient's urine drug screen is positive for barbiturates and patient was just recently treated for EtOH detox. EtOH is 448. This patient's lab work is otherwise unremarkable in the ED. She will be admitted to the hospitalist for further treatment alcohol detox. Impression: 1. EtOH intoxication 2. EtOH detox Discharge Plan Disposition Disposition: Acute Care Hospital [facility] Discharge Date/Time: 05/06/21 18:28
--- NOTE | 2021-05-06 17:27 | PCM.HP.STD ---
Documented by User: Angelo CALHOUN 05/06/21 17:55 HPI - General General Date of Admission: 05/06/21 Date of Service: 05/06/21 Chief Complaint: Alcohol abuse/impending withdrawal. HPI Narrative QUINTIN MCNEAL is an 51-year-old female who presents to the emergency department at [facility] on 05/06/2021 with a chief complaint of intoxication with impending alcoholic withdrawal and is requesting medical stabilization. Patient reports in unspecified history of alcohol abuse and is unable to determine how long she has been abusing alcohol as she is acutely intoxicated. Patient does report that she did drink a gallon of vodka before coming into the emergency department today. Patient reports that she has been admitted before for alcohol abuse and is active with [facility]. Patient denies any illicit or prescription drug abuse. Patient denies ever smoking. Review of systems was significant for bloody stools, hematuria and right upper quadrant abdominal pain. Patient denies menstruation and reports that she has had a hysterectomy. Patient does report a past medical history of gallbladder removal and pancreatitis secondary to her alcohol abuse. Abdominal ultrasound from March 2021 demonstrates fatty liver with small amount of peripheral ascites and a nonspecific echogenic pancreas. Of note, patient was recently discharged on April 262020 for acute alcohol withdrawal. Plan at the time of last discharge was for patient to follow-up with [facility]. Vital signs in the ED is significant for hypertension with a BP of 130/101 and tachycardia at a rate of 104. Other vital signs stable, patient is afebrile and is currently satting 97% on room air. CBC significant for anemia with a hemoglobin of 10.6, baseline appears between 12 and 13. AST is elevated at 54, ALT is within normal limits. Ethyl alcohol is 318. Urine tox screen is positive for barbiturates. Patient was given 1 dose of Ativan in the ED for anxiety. [facility] Medical History (Updated 05/06/21 @ 17:44 by Angelo CALHOUN) Anxiety and depression Asthma CAD (coronary artery disease) Cervical neuropathy Depression Dissection, vertebral artery Fibromyalgia HTN (hypertension) Kidney stones Lupus nephritis Lupus vasculitis Myocardial infarct Seizures Systemic lupus erythematosus Thrombocytopenia TIA (transient ischemic attack) Home Medications aspirin 81 mg PO DAILY@0800 05/31/18 [History Last Taken 3 Days Ago ~03/14/21] ondansetron 4 mg PO Q4H PRN PRN 06/26/19 [History Last Taken 2 Weeks Ago ~05/29/20] cyclobenzaprine 5 mg PO TID PRN PRN 06/12/20 [History Last Taken 06/11/20] lorazepam 1 mg PO BID PRN PRN 06/12/20 [History Last Taken 06/12/20] hydroxychloroquine 200 mg PO BID 09/26/20 [History Last Taken 3 Days Ago ~03/14/21] atorvastatin 20 mg PO DAILY #30 tab 09/30/20 [Rx Last Taken 3 Days Ago ~03/14/21] pantoprazole [Protonix] 40 mg PO BID 03/17/21 [History Last Taken 3 Days Ago ~03/14/21] trazodone 25 - 50 mg PO PRN PRN 03/17/21 [History Last Taken Unknown] sertraline [Zoloft] 150 mg PO DAILY 04/23/21 [History Last Taken Unknown] folic acid 1 mg PO 0800 #0 tab 04/26/21 [Rx Last Taken Unknown] methotrexate sodium 15 mg PO QWEEK #0 tab 04/26/21 [Rx Last Taken 04/16/21] thiamine HCl (vitamin B1) [Vitamin B-1] 100 mg PO DAILYCM #30 tab 04/26/21 [Rx Last Taken Unknown] Allergy/AdvReac Type Severity Reaction Status Date / Time metoclopramide HCl Allergy anxious Verified 05/06/21 16:27 [From Reglan] peanut Allergy Anaphylaxis Verified 05/06/21 16:27 Sulfa (Sulfonamide Allergy Hives Verified 05/06/21 16:27 Antibiotics) prednisone AdvReac psychosis Verified 05/06/21 16:27 prochlorperazine AdvReac anxious Verified 05/06/21 16:27 [From Compazine] Family History Father CAD (coronary artery disease) Diabetes Multiple sclerosis Melanoma Mother Rheumatoid arthritis Melanoma Surgical History H/O cervical spine surgery H/O knee surgery History of cholecystectomy History of hysterectomy S/P appendectomy Social History household members: none housing: apartment Smoking Status: Never smoker alcohol intake: current alcohol intake frequency: 3 or more drinks per day Alcohol type: hard liquor substance use type: does not use ROS ROS Narrative Review of system was limited due to patient being acutely intoxicated. Constitutional Constitutional: Denies anorexia, change in weight, chills, fatigue, fever(s), malaise, night sweats, weakness or other Eyes Eyes: Denies blurry vision, change in eye color, change in vision, discharge from eye(s), double vision, erythema, eye pain, loss of vision or other ENT HEENT: Denies abnormal hearing, dysphagia, ear pain, epistaxis, headache(s), hearing loss, nasal congestion, nasal discharge, post nasal drip, sinus pressure, sore throat or other Cardiovascular Cardiovascular: Denies chest pain, claudication, dyspnea on exertion, edema, lightheadedness, orthopnea, palpitations, paroxysmal nocturnal dyspnea, rapid heart rate, syncope or other Respiratory/Chest Respiratory/Chest: Denies cough, dyspnea, excessive phlegm production, hemoptysis, productive cough, shortness of breath at rest, shortness of breath with exertion, wheezing or other Gastrointestinal Gastrointestinal: Reports hematochezia and melena; Denies abdominal pain, coffee ground emesis, constipation, diarrhea, dyspepsia, hematemesis, loose stools, nausea, vomiting or other Genitourinary Genitourinary: Reports hematuria; Denies burning urination, difficulty urinating, dysuria, nocturia, urinary frequency, urinary hesitancy, urinary incontinence, urinary urgency or other Musculoskeletal Musculoskeletal: Reports back pain, joint pain and myalgias; Denies arthralgias, joint stiffness, joint swelling, neck pain or other Neurologic Neurologic: Denies abnormal gait, abnormal speech, confusion, disequilibrium, dizziness, focal weakness, headache(s), numbness, paresthesias, seizure-like activity, seizures, syncope, tingling, tremor(s) or other Psychiatric Psychiatric: Denies anxiety, depression, homicidal ideation, suicidal ideation or other Endocrine Endocrinology: Denies change in body appearance, cold intolerance, excessive sweating, heat intolerance, polydipsia, polyuria or other Hematologic/Lymphatic Hematologic/Lymphatic: Denies anemia, easy bleeding, easy bruising, lymphadenopathy or other Allergic/Immunologic Allergic/Immunologic: Denies rhinitis, hives, eczemia, asthma or other Vital Signs Vital Signs Vital Signs: 05/06/21 16:24 Temperature 98 F Temperature Source Temporal Pulse Rate 104 H Respiratory Rate 16 Blood Pressure 130/101 H Blood Pressure Mean 110 Pulse Ox 97 Oxygen Delivery Method Room Air Weight Weight: 129 lb 6.581 oz Body Mass Index (BMI) 19.6 Physical Exam Const alert and oriented x3 General Appearance: in distress and anxious Orientation / Consciousness: disoriented Exam Limitations: behavioral limitations HEENT normocephalic, head/scalp atraumatic and hearing grossly normal bilaterally Eyes EOMs intact bilaterally and conjunctivae normal Neck no lymphadenopathy, supple and no JVD Resp normal respiratory effort, no retractions, no use of accessory muscles and clear to auscultation bilaterally Cardio regular rhythm, no murmurs and no JVD Rate: tachycardic GI non-distended Palpation: tender RUQ Extremity normal to inspection, full ROM and no clubbing, cyanosis or edema Skin no rashes or lesions noted, no wounds, skin turgor normal and no jaundice Neuro CN's II-XII intact bilaterally Psych affect normal Assessment & Plan Assessment/Plan (1) Alcohol abuse: (2) Acute alcohol intoxication: (3) Urinary tract infection: (4) Hypertension: QUALIFIERS: Hypertension type: essential hypertension Qualified Code(s): I10 - Essential (primary) hypertension PLAN: Patient is a 51-year-old female who presents to the ED at [facility] on 05/06/2021 with a chief complaint of alcohol abuse with acute impending withdrawal. Patient will be admitted for management of impending withdrawal and medical stabilization. 1) alcohol abuse/impending withdrawal Patient reports an unspecified history of alcohol abuse, cannot define timeline of alcohol abuse due to acute intoxication. Review of prior records reveals that patient was sober for about 2 years until January 2020 when she was started drinking alcohol again. Patient reports that last drink was right before she came into the emergency department where she reports drinking a gallon of vodka. Patient denies any tremors or hallucinations, but reports that she does experience the symptoms when her withdrawal begins. Plan; admit to [facility] for medical stabilization, initiate phenobarbital taper, Tylenol as needed, Bentyl as needed, gabapentin as needed, Vistaril as needed, Imodium as needed, senna as needed, thiamine repleted, folic acid repleted, [facility] consulted. 2) Melena Patient reports an unspecified history of dark tarry stools. No evidence of hemodynamic compromised, hemoglobin is currently 10.6, baseline appears between 12 and 13. Plan; stool guaiac ordered, continue to monitor CBC. 2) systemic lupus erythematous Continue methotrexate, cyclobenzaprine and hydroxychloroquine. 3) GERD Continue Protonix. 4) depression and anxiety Continue Zoloft, hold trazodone. 5) HTN Diastolic blood pressure elevated, current BP 130/101. Continue amlodipine, hydralazine as needed. 6) hyperlipidemia Continue statin DVT prophylaxis -not indicated CODE STATUS: Full code Patient seen by Angelo Meza PA-C, under the supervision of Dr. Way. Documented by User: Dr. Amairani Way MD 05/06/21 18:07 HPI - General General Date of Admission: 05/06/21 [facility] Medical History (Updated 05/06/21 @ 17:44 by Angelo CALHOUN) Anxiety and depression Asthma CAD (coronary artery disease) Cervical neuropathy Depression Dissection, vertebral artery Fibromyalgia HTN (hypertension) Kidney stones Lupus nephritis Lupus vasculitis Myocardial infarct Seizures Systemic lupus erythematosus Thrombocytopenia TIA (transient ischemic attack) Home Medications aspirin 81 mg PO DAILY@0800 05/31/18 [History Last Taken 3 Days Ago ~03/14/21] ondansetron 4 mg PO Q4H PRN PRN 06/26/19 [History Last Taken 2 Weeks Ago ~05/29/20] cyclobenzaprine 5 mg PO TID PRN PRN 06/12/20 [History Last Taken 06/11/20] lorazepam 1 mg PO BID PRN PRN 06/12/20 [History Last Taken 06/12/20] hydroxychloroquine 200 mg PO BID 09/26/20 [History Last Taken 3 Days Ago ~03/14/21] atorvastatin 20 mg PO DAILY #30 tab 09/30/20 [Rx Last Taken 3 Days Ago ~03/14/21] pantoprazole [Protonix] 40 mg PO BID 03/17/21 [History Last Taken 3 Days Ago ~03/14/21] trazodone 25 - 50 mg PO PRN PRN 03/17/21 [History Last Taken Unknown] sertraline [Zoloft] 150 mg PO DAILY 04/23/21 [History Last Taken Unknown] folic acid 1 mg PO 0800 #0 tab 04/26/21 [Rx Last Taken Unknown] methotrexate sodium 15 mg PO QWEEK #0 tab 04/26/21 [Rx Last Taken 04/16/21] thiamine HCl (vitamin B1) [Vitamin B-1] 100 mg PO DAILYCM #30 tab 04/26/21 [Rx Last Taken Unknown] Allergy/AdvReac Type Severity Reaction Status Date / Time metoclopramide HCl Allergy anxious Verified 05/06/21 16:27 [From Reglan] peanut Allergy Anaphylaxis Verified 05/06/21 16:27 Sulfa (Sulfonamide Allergy Hives Verified 05/06/21 16:27 Antibiotics) prednisone AdvReac psychosis Verified 05/06/21 16:27 prochlorperazine AdvReac anxious Verified 05/06/21 16:27 [From Compazine] Family History Father CAD (coronary artery disease) Diabetes Multiple sclerosis Melanoma Mother Rheumatoid arthritis Melanoma Surgical History H/O cervical spine surgery H/O knee surgery History of cholecystectomy History of hysterectomy S/P appendectomy Social History household members: none housing: apartment Smoking Status: Never smoker alcohol intake: current alcohol intake frequency: 3 or more drinks per day Alcohol type: hard liquor substance use type: does not use
--- NOTE | 2021-05-06 17:39 | CM.ED ---
SOCIAL WORK Referral Source: Self referral Reason for Consult: Substance Abuse-detox from alcohol Met with patient in room. Patient reports has been in contact with [facility]. Patient requesting detox from alcohol. Patient reports last drink prior to arrival. Dr. Way to room. Patient has been through [facility] in past. Patient states I have followed up and I need to. Dr. Way discussed residential treatment. Patient voices no questions or concerns regarding [facility]. Dariana, Addiction Therapist updated on patient's admission to [facility]. Plan: [facility] for alcohol withdrawal management. Cheryle Callahan, HVAC SERVICE TECH, REPACKER
[2021-05-06] MEDS: LORazepam 2 MG/ML Syringe 1 MG IV (18:18)
[2021-05-06 18:21] LABS: Absolute Lymphocyte Count 2.53 X10^3/uL (0.83-4.51); Basophil# 0.09 X10^3/uL; Basophil% 1.8 % (0-1); Eosinophil# 0.08 X10^3/uL; Eosinophils% 1.6 % (0-5); Hematocrit 38.3 % (37-47); Hemoglobin 12.4 g/dL (12.0-15.0); Lymphocyte # 2.53 X10^3/ul (0.83-4.51); Lymphocyte % 50.4 % (19-41); Mean Corp Hgb Conc 32.4 g/dL (32-36); Mean Corpuscular Volume 86.5 fL (81-99); Mean Platelet Vol. 9.5 fl (6.2-12.0); Monocyte# 0.36 X10^3/uL; Monocyte% 7.2 % (0-10); NRBC Flagged by Analyzer 0 % (0-5); Neutrophil # 1.95 X10^3/uL (2.7-7.7); Neutrophil % 38.8 % (47-70); Platelet Count 477 K/mm3 (150-450); RBC Distribution Width CV 17.5 % (11.6-14.6); RBC Distribution Width SD 54.1 fl (35.1-43.9); Red Blood Count 4.43 M/mm3 (4.2-5.4)
[2021-05-06 18:23] VITALS: BP 129/98; PULSE 99; RESP 17; TEMP 36.7; O2SAT 98
[2021-05-06 18:30] LABS: Anion Gap 10 (5-15); BUN 6 mg/dL (7-18); BUN/Creat Ratio 9.8 RATIO (10-20); Calcium,Total 8.6 mg/dL (8.5-10.1); Chloride 104 mmol/L (98-107); Creatinine, Serum 0.61 mg/dL (0.55-1.02); EST Glomerular Filtration Rate 110 mL/min (>60); Est Glom Filt Rate - Afr Amer 133 mL/min (>60); Estimated Creatinine Clearance 103.38 ml/min; Glucose 85 mg/dL (74-106); Lipase 74 U/L (73-393); Magnesium 2.3 mg/dL (1.6-2.6); Potassium 3.8 mmol/L (3.5-5.1); Sodium Level 142 mmol/L (136-145)
[2021-05-06 18:36] VITALS: BMI 20.9
[2021-05-06 18:42] LABS: AST(SGOT) 107 U/L (15-37); Alanine Aminotransfer ALT/SGPT 56 U/L (13-56); Albumin, Serum 3.9 g/dL (3.2-5.0); Alkaline Phosphatase 88 U/L (45-117); Bilirubin, Direct 0.08 mg/dL (0.00-0.30); Protein, Total 7.9 g/dL (6.4-8.2)
[2021-05-06 18:43] LABS: Amphetamine Urine VISTA NEGATIVE (<1000 ng/mL); Barbiturate Urine VISTA POSITIVE (< 200 ng/mL); Benzodiazepine Urine VISTA NEGATIVE (< 200 ng/mL); Cocaine Urine VISTA NEGATIVE (< 300 ng/mL); Ecstacy Urine VISTA NEGATIVE (< 500 ng/mL); Methadone Urine VISTA NEGATIVE (< 300 ng/mL); PCP Urine VISTA NEGATIVE (< 25 ng/mL); THC Urine VISTA NEGATIVE (< 50 ng/mL); Vista UDS pH Range 6
[2021-05-06 18:51] LABS: Internal QC Validated? YES +Cl - CLEAR BKGD; Pregnancy, Serum, hCG Quali. NEGATIVE Negative
[2021-05-06 19:32] VITALS: BP 120/93; PULSE 95; RESP 18; TEMP 36.9; O2SAT 100
[2021-05-06] MEDS: Phenobarbital 32.4 MG Tablet 64.8 MG PO ×2 (19:35→22:48)
[2021-05-06] MEDS: Gabapentin 300 MG Capsule PO (19:35)
[2021-05-06] MEDS: Acetaminophen 325 MG Tablet 650 MG PO (20:27)
[2021-05-06] MEDS: Ondansetron 8 MG Tablet PO (20:27)
[2021-05-06] MEDS: LORazepam 1 MG Tablet PO (20:27)
[2021-05-06] MEDS: Ketorolac 10 MG Tablet PO (20:28)
[2021-05-06] MEDS: Lactated Ringers 1,000 ML 125 ML IV (20:28)
[2021-05-06] MEDS: Atorvastatin Calcium 20 MG Tablet PO (22:48)
[2021-05-06] MEDS: Pantoprazole Sodium 40 MG Tablet PO (22:48)
[2021-05-06] MEDS: BMX LIQUID 180 ML PO (22:48)
[2021-05-06] MEDS: Hydroxychloroquine 200 MG Tablet PO (22:48)
[2021-05-06] MEDS: traZODone 100 MG Tablet PO (22:48)
[2021-05-06 22:53] VITALS: BP 129/81; PULSE 82; RESP 18; TEMP 36.4; O2SAT 99
[2021-05-07] MEDS: Phenobarbital 32.4 MG Tablet 64.8 MG PO ×6 (04:07→23:32)
[2021-05-07] MEDS: Gabapentin 300 MG Capsule PO ×2 (04:07→14:29)
[2021-05-07] MEDS: Acetaminophen 325 MG Tablet 650 MG PO (04:08)
[2021-05-07] MEDS: Ketorolac 10 MG Tablet PO (04:08)
[2021-05-07 04:10] VITALS: BP 96/57; PULSE 89; RESP 18; TEMP 36.4; O2SAT 98
[2021-05-07] MEDS: hydrOXYzine PAM 25 MG Capsule 50 MG PO ×2 (06:19→17:38)
[2021-05-07] MEDS: Ondansetron 8 MG Tablet PO ×2 (07:36→20:29)
[2021-05-07] MEDS: Mag Hydrox/Al Hydrox/Simeth 30 ML UDC PO ×2 (07:36→14:29)
[2021-05-07 08:40] VITALS: BP 110/68; PULSE 99; RESP 18; TEMP 36.9; O2SAT 97
[2021-05-07] MEDS: Aspirin 81 MG TAB.CHEW PO (08:42)
[2021-05-07] MEDS: Pantoprazole Sodium 40 MG Tablet PO ×2 (08:42→20:29)
[2021-05-07] MEDS: Folic Acid 1 MG Tablet PO (08:42)
[2021-05-07] MEDS: Thiamine Hydrochloride 100 MG Tablet PO (08:42)
[2021-05-07] MEDS: Hydroxychloroquine 200 MG Tablet PO ×2 (08:42→17:35)
[2021-05-07] MEDS: Multivitamins,Therapeutic Tablet 1 TABLET PO (08:42)
[2021-05-07] MEDS: DULoxetine Hcl 30 MG Capsule PO (08:43)
[2021-05-07] MEDS: LORazepam 1 MG Tablet PO ×2 (08:52→20:29)
--- NOTE | 2021-05-07 10:34 | ADDICTION ---
This principal technical writer met with PT to conduct ASAM, MSE, AUDIT assessments and to plan for d/c. PT A+Ox4 and participated actively. All assessments completed. AD and DP faxed to [facility] and placed in PT's chart. PT refused residential recommendation. PT plans to f/u with individual counselor at [facility] for follow-up counseling services. PT did not indicate a need for transportation post d/c from [facility].
--- NOTE | 2021-05-07 13:57 | PN.HOSP_ITS ---
Subjective Subjective Patient seen and examined. She was admitted for acute alcohol withdrawal. She complained of tremors. She denied any shortness of breath, abdominal pain or any other symptoms. Review of systems is otherwise negative. Objective Data Objective Data Vital Signs: Vital Signs Temp Pulse Resp BP Pulse Ox 98.5 F 99 18 110/68 97 05/07/21 08:40 05/07/21 08:40 05/07/21 08:40 05/07/21 08:40 05/07/21 08:40 Oxygen Delivery Method Room Air Weight: 137 lb 12.8 oz Body Mass Index (BMI) 20.9 Intake & Output: Intake and Output for Last 24 Hours 05/05/21 05/06/21 05/07/21 23:59 23:59 23:59 Intake Total 400 / 400 1340 / 1340 Balance 400 / 400 1340 / 1340 Lab / Micro Data Result Diagrams: 05/06/21 18:00 05/06/21 18:00 Labs: Laboratory Results - last 24 hr 05/06/21 18:00: Total Bilirubin 0.10 L, Direct Bilirubin 0.08, AST 107 H, ALT 56, Alkaline Phosphatase 88, Total Protein 7.9, Albumin 3.9, Globulin 4.0 05/06/21 18:00: WBC 5.0, RBC 4.43, Hgb 12.4, Hct 38.3, MCV 86.5, MCH 28.0, MCHC 32.4, RDW Std Deviation 54.1 H, RDW Coeff of Leeann 17.5 H, Plt Count 477 H, MPV 9.5, Immature Gran % (Auto) 0.200, Neut % (Auto) 38.8 L, Lymph % (Auto) 50.4 H, Upton % (Auto) 7.2, Eos % (Auto) 1.6, Baso % (Auto) 1.8 H, Absolute Neuts (auto) 2.0, Absolute Lymphs (auto) 2.53, Nucleated RBC % 0 05/06/21 18:00: Sodium 142, Potassium 3.8, Chloride 104, Carbon Dioxide 28.0, Anion Gap 10, BUN 6 L, Creatinine 0.61, Estim Creat Clear Calc 103.38, Est GFR (MDRD) Af Amer 133, Est GFR (MDRD) Non-Af 110, BUN/Creatinine Ratio 9.8 L, Glucose 85, Calcium 8.6, Magnesium 2.3, Lipase 74 05/06/21 18:00: Ethyl Alcohol 448.0 H* 05/06/21 18:00: Serum , Qual NEGATIVE 05/06/21 18:00: Phosphorus 3.0 05/06/21 18:10: Urine Opiates Screen NEGATIVE, Urine Methadone Screen NEGATIVE, Ur Barbiturates Screen POSITIVE H, Ur Phencyclidine Scrn NEGATIVE, Ur Amphetamines Screen NEGATIVE, U Methamphetamin-MDMA NEGATIVE, U Benzodiazepines Scrn NEGATIVE, Urine Cocaine Screen NEGATIVE, U Cannabinoids Screen NEGATIVE, Ur Drug Screen Comment Micro: Microbiology 05/07/21 11:15 Stool Stool Occult Blood ([facility]) - Final Physical Exam Const alert, oriented x3 and no apparent distress Exam Limitations: no limitations HEENT head/scalp atraumatic, moist oral mucous membranes and oropharynx normal Head and Scalp: normocephalic Eyes PERRL, EOMs intact bilaterally and conjunctivae normal Neck no lymphadenopathy, supple and no JVD Resp normal respiratory effort, no retractions, no use of accessory muscles and clear to auscultation bilaterally Cardio regular rate, regular rhythm, S1 normal heart sound, S2 normal heart sound and no murmurs GI normal to inspection, nondistended, normoactive bowel sounds, soft to palpation, non-tender and non-distended Extremity normal to inspection, full ROM and no clubbing, cyanosis or edema Peripheral Pulses: Yes pulses 2+ throughout Skin no rashes or lesions noted Neuro oriented x3 Psych affect normal Assessment & Plan Assessment/Plan (1) Alcohol abuse: (2) Acute alcohol intoxication: PLAN: #Acute alcohol withdrawal * on alcohol withdrawal protocol with phenobarbital * on thiamine, folic acid and multivites * adjunctive meds for supportive treatment * #History of SLE: on methotrexate, cyclobenzaprine and hydroxychloroquine #GERD: on PPI #?Melena: patient complained of dark stools. stool for occult blood pending. #Depression and anxiety: on zoloft. #Hypertension: on amlodipine. IV hydralazine prn #Hyperlipidemia: on statin DVT prophylaxis: low risk, encourage to ambulate Charges/Coding Visit Charges Inpatient E&M: 38096 Subs Hosp L2
[2021-05-07 14:20] VITALS: BP 115/84; PULSE 100; RESP 16; TEMP 36.8; O2SAT 95
[2021-05-07] MEDS: BMX LIQUID 180 ML PO (14:29)
[2021-05-07 18:22] VITALS: BP 106/64; PULSE 84; RESP 16; TEMP 37.2; O2SAT 96
[2021-05-07 20:17] VITALS: BP 127/81; PULSE 88; RESP 18; TEMP 36.9; O2SAT 97
[2021-05-07] MEDS: Atorvastatin Calcium 20 MG Tablet PO (20:29)
[2021-05-08 03:25] VITALS: BP 117/84; PULSE 80; RESP 18; TEMP 36.7; O2SAT 97
[2021-05-08] MEDS: Phenobarbital 32.4 MG Tablet 64.8 MG PO ×6 (03:26→22:59)
[2021-05-08] MEDS: hydrOXYzine PAM 25 MG Capsule 50 MG PO ×3 (03:26→23:06)
[2021-05-08 07:15] VITALS: O2SAT 98
[2021-05-08 08:32] VITALS: BP 109/74; PULSE 78; RESP 16; TEMP 36.8; O2SAT 99
[2021-05-08] MEDS: LORazepam 1 MG Tablet PO (08:38)
[2021-05-08] MEDS: Folic Acid 1 MG Tablet PO (08:39)
[2021-05-08] MEDS: Multivitamins,Therapeutic Tablet 1 TABLET PO (08:39)
[2021-05-08] MEDS: Aspirin 81 MG TAB.CHEW PO (08:39)
[2021-05-08] MEDS: Hydroxychloroquine 200 MG Tablet PO ×2 (08:39→17:11)
[2021-05-08] MEDS: Pantoprazole Sodium 40 MG Tablet PO ×2 (10:47→22:59)
[2021-05-08] MEDS: Thiamine Hydrochloride 100 MG Tablet PO (10:47)
[2021-05-08] MEDS: DULoxetine Hcl 30 MG Capsule PO (10:47)
[2021-05-08] MEDS: Methotrexate 2.5 MG Tablet 15 MG PO (10:48)
--- NOTE | 2021-05-08 11:00 | PN.HOSP_ITS ---
Subjective Subjective Patient seen and examined. She has no complaints and feels well today. Review of systems otherwise negative. She has remained hemodynamically stable. Objective Data Objective Data Vital Signs: Vital Signs Temp Pulse Resp BP Pulse Ox 98.2 F 78 16 109/74 99 05/08/21 08:32 05/08/21 08:32 05/08/21 08:32 05/08/21 08:32 05/08/21 08:32 Oxygen Delivery Method Room Air Weight: 137 lb 12.8 oz Body Mass Index (BMI) 20.9 Intake & Output: Intake and Output for Last 24 Hours 05/06/21 05/07/21 05/08/21 23:59 23:59 23:59 Intake Total 400 / 400 2340 / 2590 250 / 250 Output Total 200 / 200 Balance 400 / 400 2140 / 2390 250 / 250 Lab / Micro Data Result Diagrams: 05/06/21 18:00 05/06/21 18:00 Micro: Microbiology 05/07/21 11:15 Stool Stool Occult Blood ([facility]) - Final Physical Exam Const alert, oriented x3 and no apparent distress Exam Limitations: no limitations HEENT head/scalp atraumatic, moist oral mucous membranes and oropharynx normal Eyes PERRL, EOMs intact bilaterally and conjunctivae normal Neck no lymphadenopathy, supple and no JVD Resp normal respiratory effort, no retractions, no use of accessory muscles and clear to auscultation bilaterally Cardio regular rate, regular rhythm, S1 normal heart sound, S2 normal heart sound and no murmurs GI normal to inspection, nondistended, normoactive bowel sounds, soft to palpation, non-tender and non-distended Extremity normal to inspection, full ROM and no clubbing, cyanosis or edema Peripheral Pulses: Yes pulses 2+ throughout Skin no rashes or lesions noted Neuro oriented x3 Sensorium / Orientation: awake and alert Psych affect normal Assessment & Plan Assessment/Plan (1) Alcohol abuse: (2) Acute alcohol intoxication: PLAN: #Acute alcohol withdrawal * on alcohol withdrawal protocol with phenobarbital * on thiamine, folic acid and multivites * adjunctive meds for supportive treatment * #History of SLE: on methotrexate, cyclobenzaprine and hydroxychloroquine #GERD: on PPI #?Melena: resolved. patient complained of dark stools. stool for occult blood negative. Hb 12.4 #Depression and anxiety: on zoloft. #Hypertension: on amlodipine. IV hydralazine prn #Hyperlipidemia: on statin DVT prophylaxis: low risk, encourage to ambulate Disposition: for DC tomorrow Charges/Coding Visit Charges Inpatient E&M: 18860 Subs Hosp L2
[2021-05-08 13:05] LABS: Bacteria 0 SEEN /hpf (None Seen); Mucous, Urine 0 SEEN /hpf (<or=2+); Red Blood Cells-Urine 0 SEEN /hpf (0-5); White Blood Cells 0 SEEN /hpf (0-5)
[2021-05-08 13:11] LABS: Color, Urine Yellow (Yellow); Glucose, Dipstick Normal (Normal); Ketone-Dipstick Negative (Negative); Leukocyte Esterase-Dipstick Negative /ul (Negative); Nitrite-Dipstick Negative (Negative); Occult Blood-Urine Negative /ul (Negative); Protein-Dipstick Negative (Negative); Specific Gravity, Urine 1.015 (1.002-1.030); Urine Bilirubin Dipstick Negative (Negative); Urine Clarity Clear (Clear); Urine Urobilinogen Normal (Normal)
[2021-05-08 13:35] LABS: Squamous Epithelial Cells - UA 0-5 SEEN /hpf (5-10)
[2021-05-08 14:00] VITALS: BP 128/68; PULSE 88; RESP 16; TEMP 36.6; O2SAT 97
[2021-05-08 17:20] VITALS: BP 131/85; PULSE 77; RESP 16; TEMP 37.1; O2SAT 97
[2021-05-08] MEDS: Atorvastatin Calcium 20 MG Tablet PO (22:59)
[2021-05-08] MEDS: traZODone 100 MG Tablet PO (23:06)
[2021-05-08 23:08] VITALS: BP 115/88; PULSE 77; RESP 16; TEMP 36.4; O2SAT 98
[2021-05-09] MEDS: Phenobarbital 32.4 MG Tablet 64.8 MG PO ×2 (03:12→10:33)
[2021-05-09 03:14] VITALS: BP 119/75; PULSE 72; RESP 16; TEMP 36.5; O2SAT 97
[2021-05-09 08:01] VITALS: O2SAT 96
[2021-05-09 09:15] VITALS: BP 100/77; PULSE 86; RESP 18; TEMP 37.1; O2SAT 93
--- NOTE | 2021-05-09 10:00 | DS.PCM_ITS ---
Providers Date of Admission: 05/06/21 Primary Care Physician: Dr. Froylan Grant MD Reason For Visit: ACUTE ETOH WITHDRAWAL Diagnosis Discharge Diagnosis (1) Alcohol abuse: Status: Chronic Code(s): F10.10 - Alcohol abuse, uncomplicated (2) Acute alcohol intoxication: Status: Acute Code(s): F10.929 - Alcohol use, unspecified with intoxication, unspecified Medications at Discharge Home Medications aspirin 81 mg PO DAILY@0800 05/31/18 ondansetron 4 mg PO Q4H PRN PRN 06/26/19 cyclobenzaprine 5 mg PO TID PRN PRN 06/12/20 lorazepam 1 mg PO BID PRN PRN 06/12/20 hydroxychloroquine 200 mg PO BID 09/26/20 pantoprazole [Protonix] 40 mg PO BID 03/17/21 trazodone 50 mg PO PRN PRN 03/17/21 Bmx Mouth Wash 1 unit OTHER PRN PRN 05/06/21 atorvastatin 20 mg PO QHS 05/06/21 duloxetine [Cymbalta] 30 mg PO DAILY 05/06/21 folic acid 1 mg PO 0800 05/06/21 methotrexate sodium 15 mg PO FR 05/06/21 thiamine HCl (vitamin B1) [Vitamin B-1] 100 mg PO DAILYCM 05/06/21 Hospital Course Operations None Procedures None Summary of Care Provided Minutes Spent on Discharge: 40 Hospital Course: Patient is a 51-year-old female with an extensive past medical history as outlined was admitted through the ED on 05/06/2021 with a complaint of alcohol intoxication alcohol withdrawal. Patient had drank a gallon of vodka prior to her coming in to the ED and on admission was found to be tachycardic and hypertensive. Urine tox was positive for barbiturates. Patient was adm itted and managed for acute alcohol withdrawal. She was started on alcohol withdrawal protocol with phenobarbital. Patient tolerated 3-day detox process and opted to continue care with 180 on outpatient basis. She was already established with them. She is follow-up with her primary care doctor in 1 to 2 weeks. Patient seen and examined prior to discharge. She had no complaints and felt well. Review of systems otherwise negative. Labs and vitals reviewed. Home medication reviewed and reconciled. Physical Exam Const alert, oriented x3 and no apparent distress Exam Limitations: no limitations HEENT normocephalic, head/scalp atraumatic, moist oral mucous membranes and oropharynx normal Eyes PERRL, EOMs intact bilaterally and conjunctivae normal Neck no lymphadenopathy, supple and no JVD Resp normal respiratory effort, no retractions, no use of accessory muscles and clear to auscultation bilaterally Cardio regular rate, regular rhythm, S1 normal heart sound, S2 normal heart sound and no murmurs GI normal to inspection, nondistended, normoactive bowel sounds, soft to palpation, non-tender and non-distended Extremity normal to inspection, full ROM and no clubbing, cyanosis or edema Skin no rashes or lesions noted Neuro oriented x3 Sensorium / Orientation: awake and alert Psych affect normal Weight / BMI Weight Weight: 137 lb 12.8 oz Body Mass Index (BMI) 20.9 ABG / Lab / Microbiology Data Result Diagrams: 05/06/21 18:00 05/06/21 18:00 Laboratory: Laboratory Results - last 24 hr 05/08/21 12:55: Urine Color Yellow, Urine Clarity Clear, Urine pH 8.0, Ur Specific [place] 1.015, Urine Protein Negative, Urine Glucose (UA) Normal, Urine Ketones Negative, Urine Occult Blood Negative, Urine Nitrite Negative, Urine Bilirubin Negative, Urine Urobilinogen Normal, Ur Leukocyte Esterase Negative, Urine RBC 0 SEEN, Urine WBC 0 SEEN, Ur Squamous Epith Cells 0-5 SEEN, Urine Bacteria 0 SEEN, Urine Mucus 0 SEEN Microbiology: Microbiology 05/07/21 11:15 Stool Stool Occult Blood ([facility]) - Final D/C Instructions Discharge Diet: Low fat / Low cholesterol Discharge Activity: Return to Normal Activity Weight Bearing Status: Weight bearing as tolerated Call your doctor if you observe: Fever of 101 or Higher, Shortness of breath, Dizziness, Swelling in the ankles and Increased palpitations (irregular heartbeat) Meaningful Use Info Meaningful Use Diagnoses (Choose all that apply): None applicable Discharge Plan Admission Admit Date/Time: 05/06/21 17:19 Primary Reason for Your Visit: acute alcohol withdrawal Attending Provider: Debby Radofrd Primary Care Provider: Froylan Grant Instructions Patient Instructions: Alcohol Addiction, Addiction: Getting Help Discharge Orders/Prescriptions Prescriptions: Continued aspirin 81 MG tablet,chewable 81 mg PO DAILY@0800 RF: 0 ondansetron 4 MG tablet 4 mg PO Q4H PRN PRN (Reason: vomitting) RF: 0 cyclobenzaprine 10 MG tablet 5 mg PO TID PRN PRN (Reason: Spasms) RF: 0 lorazepam 1 MG tablet 1 mg PO BID PRN PRN (Reason: Anxiety) RF: 0 hydroxychloroquine 200 MG tablet 200 mg PO BID RF: 0 trazodone 50 mg Tablet 50 mg PO PRN PRN (Reason: Insomnia) RF: 0 pantoprazole [Protonix] 40 mg Tablet,Delayed Release (Dr/Ec) 40 mg PO BID RF: 0 atorvastatin 20 MG tablet 20 mg PO QHS RF: 0 thiamine HCl (vitamin B1) [Vitamin B-1] 100 mg tablet 100 mg PO DAILYCM RF: 0 methotrexate sodium 15 mg tablet 15 mg PO FR RF: 0 folic acid 1 mg tablet 1 mg PO 0800 RF: 0 duloxetine [Cymbalta] 30 mg Capsule,Delayed Release(Dr/Ec) 30 mg PO DAILY RF: 0 Bmx Mouth Wash 1 unit OTHER PRN PRN (Reason: oral care) RF: 0 Referrals / Follow Up: Froylan Grant MD [Primary Care Provider] - Within 2 Weeks Disposition Disposition (needs filled in before D/C Order can be placed): Home, Self Care Charges/Coding Visit Charges Inpatient E&M: 38624 Disch Hosp
[2021-05-09] MEDS: Folic Acid 1 MG Tablet PO (10:26)
[2021-05-09] MEDS: Multivitamins,Therapeutic Tablet 1 TABLET PO (10:26)
[2021-05-09] MEDS: Hydroxychloroquine 200 MG Tablet PO (10:26)
[2021-05-09] MEDS: Aspirin 81 MG TAB.CHEW PO (10:26)
[2021-05-09] MEDS: Thiamine Hydrochloride 100 MG Tablet PO (10:27)
[2021-05-09] MEDS: Pantoprazole Sodium 40 MG Tablet PO (10:27)
[2021-05-09] MEDS: DULoxetine Hcl 30 MG Capsule PO (10:27)
--- NOTE | 2021-05-09 18:48 | CASEMGMT ---
TIMOTHY Note TIMOTHY referral Source: KILN DRAWER Referral Reason: Patient asked to speak to social human services assistants TIMOTHY met with patient. Patient asked if this commercial insurance underwriter was my social human services assistants or the whole hospital social human services assistants. SW explained that this commercial insurance underwriter is the social human services assistants at [facility] on this date. Patient said that she would like for social human services assistants to call and speak to her sister for 2 minutes so they know where I am at and when I am being discharged. SW advised that this commercial insurance underwriter can not call patient's family and as this commercial insurance underwriter talked to patient she then voiced that her sister had brought her to the ED for the [facility] program. Patient said that she feels she lost everything as she can't have relationship with her children and grandchildren due to her alcohol use. Patient said that she plans to go through AOD treatment with [facility] as she has a counselor and a psychiatrist at [facility]. Patient stated that she had been at residential treatment in the past but didn't want to do residential again. 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 SW provided emotional support. SW voiced that this commercial insurance underwriter could not make a phone call for patient and patient stated she understood. Emotional support provided. Plan: Home with sister, per patient and follow up with [facility] Bebe LINO
== END 2021-05-09 11:30 | disposition home or self-care (01) | DRG 775 ==
LOC: ED 17:30 → MS3 17:39
PROVIDERS: Admitting Provider Family Medicine; Emergency Provider Student in an Organized Health Care Education/Training Program; PCP Internal Medicine; Visit Provider Student in an Organized Health Care Education/Training Program
DX: F10.239 Alcohol dependence with withdrawal, unspecified (principal); F10.229 Alcohol dependence with intoxication, unspecified; Y90.8 Blood alcohol level of 240 mg/100 ml or more; K92.1 Melena; M32.9 Systemic lupus erythematosus, unspecified; F41.9 Anxiety disorder, unspecified; F32.9 Major depressive disorder, single episode, unspecified; I10 Essential (primary) hypertension; E78.5 Hyperlipidemia, unspecified; Z79.899 Other long term (current) drug therapy; D64.9 Anemia, unspecified; I25.10 Atherosclerotic heart disease of native coronary artery without angina pectoris; I25.2 Old myocardial infarction; Z86.73 Personal history of transient ischemic attack (TIA), and cerebral infarction without residual deficits; D69.6 Thrombocytopenia, unspecified; J45.909 Unspecified asthma, uncomplicated; K21.9 Gastro-esophageal reflux disease without esophagitis
CPT/HCPCS: 80048; 80076; 80307; 81001; 82077; 82274; 83690; 83735; 84100; 84703; 85025; 99283; J7120; A4216; J8610

== ENCOUNTER 2021-05-20 17:11 | Emergency (ER) | payer MEDICAID, SELFPAY ==
[2021-05-20 17:13] VITALS: BP 113/99; PULSE 82; RESP 18; TEMP 36.4; O2SAT 95; BMI 18.8
--- NOTE | 2021-05-20 18:00 | CT_ITS ---
STUDY: CT BRAIN WITHOUT CONTRAST REASON FOR EXAM: Female, 51 years old. Left sided numbness. RADIATION DOSAGE (If Supplied By Facility): CTDIvol = ( 44.99 ) mGy, DLP = ( 796.11 ) mGycm TECHNIQUE: Transaxial CT imaging of the brain was performed without administration of intravenous contrast material. Individualized dose optimization techniques were used for this CT. COMPARISON: CTA of the head, 04/13/2018. FINDINGS: Normal soft tissue structures. Normal calvarium. Normal size ventricles and extra-axial spaces for the patient''s age. Normal white matter tracts of the cerebral hemispheres. Normal basal ganglia and thalami. Normal brainstem. Normal cerebellum. There is no intracranial hemorrhage. There are no findings of an acute ischemic infarction. Normal visualized paranasal sinuses. CT/Brain/Head without Contrast IMPRESSION: No acute intracranial or calvarial abnormality. If there is continued concern for acute stroke, MRI is recommended. Electronically Signed: Omari Moya DO at 20:59 EDT Tel [phone], Service support ,
--- NOTE | 2021-05-20 18:23 | CT_ITS ---
STUDY: CTA CHEST REASON FOR EXAM: Female, 51 years old. Chest pain. Stroke symptoms. History of aortic dissection. Left-sided numbness and chest pain. RADIATION DOSAGE (If Supplied By Facility): CTDIvol = ( 14.95 ) mGy, DLP = ( 1385.78 ) mGycm TECHNIQUE: The examination was performed with the intravenous administration of IV 100mL Isovue-370. Post-processing of the angiographic images was performed, with multiplanar reformation and 3D reconstruction. Individualized dose optimization techniques were used for this CT. COMPARISON: 06/12/2020. FINDINGS: Normal enhancement of the main pulmonary artery and right and left pulmonary arteries. Normal enhancement of the bilateral peripheral pulmonary arteries. There is no demonstrated pulmonary embolism. Normal thoracic aorta and visualized great vessels. There is no demonstrated aortic dissection. Normal heart and pericardium. Normal mediastinum. Normal hilar regions. Normal visualized trachea and bronchi. The lungs are well expanded. Normal pulmonary parenchyma. Normal pleura. Normal chest wall structures. Normal osseous structures. Fatty infiltration of the liver. CT/CTA Chest W/WO Contrast IMPRESSION: Normal CTA chest examination, without a demonstrated pulmonary embolism or arterial dissection. Electronically Signed: Omari Moya DO at 21:05 EDT Tel [phone], Service support ,
--- NOTE | 2021-05-20 18:23 | EKG12_ITS ---
Test Reason : ETOH Blood Pressure : / mmHG Vent. Rate : 077 BPM Atrial Rate : 077 BPM P-R Int : 154 ms QRS Dur : 094 ms QT Int : 412 ms P-R-T Axes : 052 040 044 degrees QTc Int : 466 ms Normal sinus rhythm Normal ECG Confirmed by ROSE HICKMAN, BARNEY ([id number]), editorial intern ANH BEARD ([id number]) on 05/25/2021 10:15:44 AM Referred By: BB Confirmed By:BARNEY ROSE MD
--- NOTE | 2021-05-20 18:23 | CT_ITS ---
STUDY: CTA HEAD AND NECK WITH CONTRAST REASON FOR EXAM: Female, 51 years old. Left-sided numbness. RADIATION DOSAGE (If Supplied By Facility): CTDIvol = ( 14.95 ) mGy, DLP = ( 1385.78 ) mGycm TECHNIQUE: CT angiography was performed with a multi-detector CT scanner. Data acquisition was obtained from the skull base through the vertex following intravenous administration of IV 100mL Isovue-370. MIP images were reconstructed from the axial data set. Post-processing of the angiographic images was performed, with multiplanar reformation and 3D reconstruction. Individualized dose optimization techniques were used for this CT. COMPARISON: CT of the head, 05/20/2021. CTA of the brain, 04/13/2018. FINDINGS: Normal bilateral petrous carotid arteries. Normal right cavernous carotid artery with a normal supraclinoid bifurcation. Normal left cavernous carotid artery with a normal supraclinoid bifurcation. Normal right A1 segments of the anterior cerebral artery. Normal left A1 segments of the anterior cerebral artery. Normal intact anterior communicating artery (ACOM). Normal bilateral A2 segments of the anterior cerebral arteries. Normal right M1 and M2 segments of the middle cerebral arteries, with a normal M1 bifurcation. Normal left M1 and M2 segments of the middle cerebral arteries, with a normal M1 bifurcation. There is non-visualization of the right posterior communicating artery (PCOM). There is non-visualization of the left posterior communicating artery (PCOM). Normal bilateral vertebral arteries. Normal basilar artery with a normal basilar bifurcation. The visualized bilateral superior cerebellar (SCA) arteries are normal. Normal bilateral P1, P2 and visualized P3 segments of the posterior cerebral arteries. There is no demonstrated aneurysm of the [place]. There is no demonstrated abnormality of the visualized brain. AORTIC ARCH: Normal visualized aortic arch. Normal origins of the brachiocephalic, left common carotid, and left subclavian arteries. RIGHT CAROTID ARTERIES: Normal right common carotid artery (CCA). Normal right common carotid bulb. Normal origin of the right internal carotid (ICA) artery without a hemodynamically significant stenosis. Normal visualized cervical portion of the right internal carotid artery. Normal origin of the right external carotid artery (ECA). LEFT CAROTID ARTERIES: Normal left common carotid artery (CCA). Normal left common carotid bulb. Normal origin of the left internal carotid (ICA) artery without a hemodynamically significant stenosis. Normal visualized cervical portion of the left internal carotid artery. Normal origin of the left external carotid artery (ECA). VERTEBRAL ARTERIES: Normal bilateral vertebral arteries. CT/CTA Head AND Neck W/ Contrast IMPRESSION: Normal CTA Head and neck with contrast. Is no major interval change when compared to the previous examination. Electronically Signed: Omari Moya DO at 21:03 EDT Tel [phone], Service support ,
--- NOTE | 2021-05-20 18:25 | EDS_ITS ---
HPI History of Present Illness Chief Complaint: ETOH Intox Narrative Narrative: Patient presents saying that she wants everything fixed she has end-stage lupus that gives her pain all the time and she self medicates with alcohol, she states that her blood alcohol level is constantly between 300-500 as a result of this, and she comes with her significant other, helping to provide the history which is limited coming from the patient given her level of intoxication. She states that she has been having numbness on her left arm and leg as well as chest tightness nonpleuritic for the past 2 days, currently present. She states she has been vomiting for about 2 weeks and having trouble keeping anything down as a result. She has upper abdominal discomfort that she states feels like pancreatitis which she has had in the past. She states she was seen at [facility] last night for similar symptoms but eloped. [facility] Medical History Alcohol abuse Alcohol abuse Anxiety and depression Asthma CAD (coronary artery disease) Cervical neuropathy Depression Dissection, vertebral artery Fibromyalgia HTN (hypertension) Hypertension Kidney stones Lupus nephritis Lupus vasculitis Myocardial infarct Seizures Systemic lupus erythematosus Thrombocytopenia TIA (transient ischemic attack) Home Medications cyclobenzaprine 5 mg PO QHS PRN PRN 06/12/20 [History Last Taken 05/05/21] lorazepam 0.5 mg PO Q8H PRN PRN 06/12/20 [History Last Taken 05/05/21] hydroxychloroquine 200 mg PO BID 09/26/20 [History Last Taken 05/06/21] pantoprazole [Protonix] 40 mg PO BID 03/17/21 [History Last Taken 05/06/21] trazodone 50 mg PO PRN PRN 03/17/21 [History Last Taken 05/05/21] atorvastatin 20 mg PO QHS 05/06/21 [History Last Taken 05/05/21] folic acid 1 mg PO 0800 05/06/21 [History Last Taken 05/06/21] methotrexate sodium 15 mg PO FR 05/06/21 [History Last Taken 05/01/21] thiamine HCl (vitamin B1) [Vitamin B-1] 100 mg PO DAILYCM 05/06/21 [History Last Taken 05/06/21] amlodipine 5 mg PO DAILY 05/20/21 [History Last Taken Unknown] hydrocodone-acetaminophen 1 tab PO Q8H PRN 05/20/21 [History Last Taken Unknown] hydroxyzine HCl 50 mg PO Q8H PRN PRN 05/20/21 [History Last Taken Unknown] orphenadrine citrate 100 mg PO BID 05/20/21 [History Last Taken Unknown] promethazine 25 mg PO Q6H PRN PRN #10 tablet 05/20/21 [Rx Last Taken Unknown] sertraline 50 mg PO DAILY 05/20/21 [History Last Taken Unknown] Allergy/AdvReac Type Severity Reaction Status Date / Time metoclopramide HCl Allergy anxious Verified 05/20/21 17:20 [From Reglan] peanut Allergy Anaphylaxis Verified 05/20/21 17:20 Sulfa (Sulfonamide Allergy Hives Verified 05/20/21 17:20 Antibiotics) prednisone AdvReac psychosis Verified 05/20/21 17:20 prochlorperazine AdvReac anxious Verified 05/20/21 17:20 [From Compazine] Family History Father CAD (coronary artery disease) Diabetes Multiple sclerosis Melanoma Mother Rheumatoid arthritis Melanoma Surgical History H/O cervical spine surgery H/O knee surgery History of cholecystectomy History of hysterectomy S/P appendectomy Social History household members: none housing: apartment Smoking Status: Never smoker alcohol intake: current alcohol intake frequency: 3 or more drinks per day Alcohol type: hard liquor substance use type: does not use ROS ROS ED Constitutional Constitutional ED: Reports fever(s), malaise and subjective; Denies chills Eyes Eyes: Denies change in vision or diplopia ENT ENT ED: Denies rhinorrhea or sore throat Cardiovascular Cardiovascular: Reports chest pain; Denies palpitations Respiratory/Chest Respiratory/Chest: Reports cough; Denies dyspnea Gastrointestinal Gastrointestinal: Reports abdominal pain, nausea and vomiting; Denies diarrhea Genitourinary Genitourinary ED: Denies dysuria or hematuria Musculoskeletal Musculoskeletal: Reports extremity pain; Denies back pain or neck pain Integumentary Denies abscess or rash Neurologic Neurologic: Reports paresthesias; Denies headache(s) or weakness Psychiatric Psychiatric: Denies anxiety or suicidal thoughts EXAM Physical Exam Const Vital Signs: 05/20/21 17:13 05/20/21 18:38 05/20/21 21:20 Temperature 97.5 F L Temperature Source Temporal Pulse Rate 82 81 Respiratory Rate 18 18 Blood Pressure 113/99 H 89/51 L Blood Pressure Mean 103 63 Pulse Ox 95 95 96 Oxygen Delivery Method Room Air Room Air Room Air Positive well nourished and well developed Constitutional Narrative: Grossly intoxicated General Appearance ED: well developed and NAD HEENT Reports moist mucous membranes normocephalic and atraumatic Eyes PERRL and EOMs intact bilaterally Neck full ROM and supple Chest Wall inspection of chest normal and palpation of chest normal Resp normal respiratory effort and clear to auscultation bilaterally Cardio regular rate, regular rhythm, no murmurs and peripheral pulses 2+ throughout Cardio Narrative: Symmetric bilateral radial pulses GI non-distended GI Narrative: Very tender epigastrium and right upper quadrant with voluntary guarding Auscultation: normoactive bowel sounds Palpation: soft; Negative for rebound tenderness present Back/Spine no CVA tenderness General Back: other FROM Extremity normal to inspection General Extremety ED: Negative for edema, pulses abnormal or tenderness General Extremity: Negative for edema or pulses abnormal Neuro oriented x3 and CN's II-XII intact bilaterally Neuro Narrative: Subjective tingling left arm and leg, sensation grossly intact. NIHSS is a limited due to intoxication, for instance she is ataxic throughout all 4 extremities as a result, and including this and the sensory, she has a score of 3. Sensorium / Orientation: awake and alert Motor Exam: strength 5/5 throughout Skin no rashes or lesions noted and no wounds MDM MDM MDM Narrative Medical decision making narrative: Screening chest x-ray was performed initially, it is unremarkable. We did a Covid test, it was negative. Her alcohol is in the 300s, typical for her. Her potassium was elevated but due to hemolysis, I do not think this needs to be repeated since her EKG is normal without any signs of hyperkalemia. I performed a plain CT of the brain which was normal, followed by CT angiography of the head and neck and of the chest in order to rule out both dissection and pulmonary embolus given her chest discomfort with the possibility of stroke symptoms. This was negative/normal as below. Patient still has tingling in her arm and leg. She has had no tingling in the left lower face or anywhere else. She has no weakness. This is been there for more than 48 hours with a negative CT. My suspicion is that this is not due to stroke. Furthermore, my suspicion is that her chest discomfort was GI/esophageal related to all of vomiting she has had. We did give her some oral I discussed all this with the patient, offered admission, she does not want to stay in the hospital. Advised to follow-up with her doctor closely. Lab Data Attestation: I reviewed the patient's lab results. Labs: Laboratory Results - last 24 hr 05/20/21 05/20/21 05/20/21 19:08 19:08 19:08 WBC 4.4 RBC 4.32 Hgb 12.2 Hct 38.2 MCV 88.4 MCH 28.2 MCHC 31.9 L RDW Std Deviation 61.8 H RDW Coeff of Leeann 19.4 H Plt Count 282 MPV 9.1 Immature Gran % (Auto) 0.200 Neut % (Auto) 46.4 L Lymph % (Auto) 39.4 [place] % (Auto) 11.7 H Eos % (Auto) 0.7 Baso % (Auto) 1.6 H Absolute Neuts (auto) 2.1 Absolute Lymphs (auto) 1.75 Nucleated RBC % 0 Sodium 137 Potassium 5.7 H Chloride 104 Carbon Dioxide 25.0 Anion Gap 8 BUN 4 L Creatinine 0.68 Estim Creat Clear Calc 88.86 Est GFR (MDRD) Af Amer 119 Est GFR (MDRD) Non-Af 98 BUN/Creatinine Ratio 5.9 L Glucose 92 Calcium 8.3 L Total Bilirubin 0.30 AST 151 H ALT 74 H Alkaline Phosphatase 90 Troponin I High Sens 4 Total Protein 7.7 Albumin 3.6 Globulin 4.1 Albumin/Globulin Ratio 0.9 Lipase 105 Ethyl Alcohol 373.0 H* Radiography Diagnostic Testing: Radiology Impression Brain CT 05/20/21 18:00 IMPRESSION: No acute intracranial or calvarial abnormality. If there is continued concern for acute stroke, MRI is recommended. Electronically Signed: Omari Moya DO at 20:59 EDT Tel [phone], Service support , Chest CTA 05/20/21 18:23 IMPRESSION: Normal CTA chest examination, without a demonstrated pulmonary embolism or arterial dissection. Electronically Signed: Omari Moya DO at 21:05 EDT Tel [phone], Service support , Head/Neck CTA 05/20/21 18:23 IMPRESSION: Normal CTA Head and neck with contrast. Is no major interval change when compared to the previous examination. Electronically Signed: Omari Moya DO at 21:03 EDT Tel [phone], Service support , Chest X-Ray 05/20/21 20:18 IMPRESSION: No acute cardiopulmonary disease or interval change Electronically Signed: Omari Moya DO at 20:47 EDT Tel [phone], Service support , EKG Initial EKG: Attestation: I personally reviewed and interpreted this EKG as follows: Interpretation: Sinus Rhythm and No Acute Injury Pattern Comments: Normal EKG Discharge Plan Triage Chief Complaint: ETOH Intox ED Provider: Raúl Adair Dx/Rx/DC Orders Clinical Impression: Chest pain, unspecified, Paresthesias, Alcohol intoxication, SLE (systemic lupus erythematosus) Instructions: ED Chest Pain, Uncertain Cause, ED Paraesthesias Prescriptions: New promethazine [promethazine] 25 MG tablet 25 mg PO Q6H PRN PRN (Reason: Nausea) Qty: 10 RF: 0 No Action cyclobenzaprine 10 MG tablet 5 mg PO QHS PRN PRN (Reason: Spasms) RF: 0 lorazepam 1 MG tablet 0.5 mg PO Q8H PRN PRN (Reason: Anxiety) RF: 0 hydroxychloroquine 200 MG tablet 200 mg PO BID RF: 0 trazodone 50 mg Tablet 50 mg PO PRN PRN (Reason: Insomnia) RF: 0 pantoprazole [Protonix] 40 mg Tablet,Delayed Release (Dr/Ec) 40 mg PO BID RF: 0 atorvastatin 20 MG tablet 20 mg PO QHS RF: 0 thiamine HCl (vitamin B1) [Vitamin B-1] 100 mg tablet 100 mg PO DAILYCM RF: 0 methotrexate sodium 15 mg tablet 15 mg PO FR RF: 0 folic acid 1 mg tablet 1 mg PO 0800 RF: 0 hydrocodone-acetaminophen 5-325 mg Tablet 1 tab PO Q8H PRN (Reason: Pain) RF: 0 hydroxyzine HCl 50 mg Tablet 50 mg PO Q8H PRN PRN (Reason: Pain) RF: 0 amlodipine 5 mg Tablet 5 mg PO DAILY RF: 0 orphenadrine citrate 100 mg Tablet Extended Release 100 mg PO BID RF: 0 sertraline 50 mg Tablet 50 mg PO DAILY RF: 0 Primary Care Provider: Froylan Grant Referrals: Froylan Grant MD [Primary Care Provider] - 3-5 Days Disposition Disposition: Home, Self Care
[2021-05-20 18:38] VITALS: O2SAT 95
[2021-05-20] MEDS: 0.9% Normal Saline 1,000 ML 1000 ML IV (19:09)
[2021-05-20] MEDS: Ondansetron 4 MG/2 ML Vial IV (19:10)
[2021-05-20 19:13] LABS: Absolute Lymphocyte Count 1.75 X10^3/uL (0.83-4.51); Absolute Neutrophil Count 2.1 X10^3/uL (2.0-7.7); Basophil# 0.07 X10^3/uL; Basophil% 1.6 % (0-1); Eosinophil# 0.03 X10^3/uL; Eosinophils% 0.7 % (0-5); Hematocrit 38.2 % (37-47); Hemoglobin 12.2 g/dL (12.0-15.0); Lymphocyte # 1.75 X10^3/ul (0.83-4.51); Lymphocyte % 39.4 % (19-41); Mean Corp Hgb Conc 31.9 g/dL (32-36); Mean Corpuscular Hgb 28.2 pg (27.0-32.0); Mean Corpuscular Volume 88.4 fL (81-99); Mean Platelet Vol. 9.1 fl (6.2-12.0); Monocyte# 0.52 X10^3/uL; Monocyte% 11.7 % (0-10); NRBC Flagged by Analyzer 0 % (0-5); Neutrophil # 2.06 X10^3/uL (2.7-7.7); Neutrophil % 46.4 % (47-70); Platelet Count 282 K/mm3 (150-450); RBC Distribution Width CV 19.4 % (11.6-14.6); RBC Distribution Width SD 61.8 fl (35.1-43.9); Red Blood Count 4.32 M/mm3 (4.2-5.4); White Blood Count 4.4 K/mm3 (4.4-11.0)
[2021-05-20 19:40] LABS: ALB/GLOB Ratio 0.9 RATIO (0.9-2.4); AST(SGOT) 151 U/L (15-37); Alanine Aminotransfer ALT/SGPT 74 U/L (13-56); Albumin, Serum 3.6 g/dL (3.2-5.0); Alkaline Phosphatase 90 U/L (45-117); Anion Gap 8 (5-15); BUN 4 mg/dL (7-18); BUN/Creat Ratio 5.9 RATIO (10-20); Calcium,Total 8.3 mg/dL (8.5-10.1); Chloride 104 mmol/L (98-107); Creatinine, Serum 0.68 mg/dL (0.55-1.02); EST Glomerular Filtration Rate 98 mL/min (>60); Est Glom Filt Rate - Afr Amer 119 mL/min (>60); Estimated Creatinine Clearance 88.86 ml/min; Globulin 4.1 g/dL (2.2-4.2); Glucose 92 mg/dL (74-106); Lipase 105 U/L (73-393); Potassium 5.7 mmol/L (3.5-5.1); Protein, Total 7.7 g/dL (6.4-8.2); Sodium Level 137 mmol/L (136-145); Troponin-I HS 4 pg/mL (3.0-54.0)
--- NOTE | 2021-05-20 20:18 | RAD_ITS ---
STUDY: X-RAY CHEST REASON FOR EXAM: Female, 51 years old. Intoxicated. Chest pain. History of lupus. TECHNIQUE: Single AP portable view of the chest. COMPARISON: 04/05/2021. FINDINGS: The lungs are clear and expanded. There is no demonstrated pleural abnormality. Normal size heart. Normal mediastinum and umberto. Normal visualized pulmonary arteries. Normal visualized aortic arch and descending thoracic aorta. There are no osseous changes. There is no demonstrated abnormality of the visualized soft tissue structures of the upper abdomen. RAD/Chest 1 View (Portable) IMPRESSION: No acute cardiopulmonary disease or interval change Electronically Signed: Omari Moya DO at 20:47 EDT Tel [phone], Service support ,
[2021-05-20] MEDS: proMETHazine 25 MG Tablet PO (21:18)
[2021-05-20 21:20] VITALS: BP 89/51; PULSE 81; RESP 18; O2SAT 96
[2021-05-20 22:04] VITALS: BP 103/70
== END 2021-05-20 22:04 | disposition home or self-care (01) ==
PROVIDERS: Emergency Provider Emergency Medicine; PCP Internal Medicine
DX: R07.9 Chest pain, unspecified (principal); R20.2 Paresthesia of skin; F10.129 Alcohol abuse with intoxication, unspecified; M32.14 Glomerular disease in systemic lupus erythematosus; F41.9 Anxiety disorder, unspecified; F32.9 Major depressive disorder, single episode, unspecified; J45.909 Unspecified asthma, uncomplicated; I25.10 Atherosclerotic heart disease of native coronary artery without angina pectoris; I10 Essential (primary) hypertension; Z79.899 Other long term (current) drug therapy
CPT/HCPCS: 70450; 70496; 70498; 71045; 71275; 80053; 82077; 83690; 84484; 85025; 87426; 93005; 96361; 96374; 99285; J7030; Q9967; A4216; J2405

== ENCOUNTER 2021-05-26 18:52 | Emergency (ER) | payer MEDICAID, SELFPAY ==
[2021-05-26 18:53] VITALS: BP 141/120; PULSE 106; RESP 18; TEMP 36.7; O2SAT 98; BMI 19.8
[2021-05-26 19:14] LABS: Absolute Lymphocyte Count 1.83 X10^3/uL (0.83-4.51); Absolute Neutrophil Count 3.5 X10^3/uL (2.0-7.7); Basophil# 0.05 X10^3/uL; Basophil% 0.8 % (0-1); Eosinophils% 1.6 % (0-5); Hematocrit 38.7 % (37-47); Hemoglobin 12.5 g/dL (12.0-15.0); Lymphocyte # 1.83 X10^3/ul (0.83-4.51); Lymphocyte % 29.9 % (19-41); Mean Corp Hgb Conc 32.3 g/dL (32-36); Mean Corpuscular Hgb 28.7 pg (27.0-32.0); Mean Platelet Vol. 9.8 fl (6.2-12.0); Monocyte# 0.68 X10^3/uL; Monocyte% 11.1 % (0-10); NRBC Flagged by Analyzer 0 % (0-5); Neutrophil # 3.45 X10^3/uL (2.7-7.7); Neutrophil % 56.4 % (47-70); Platelet Count 257 K/mm3 (150-450); RBC Distribution Width CV 18.7 % (11.6-14.6); RBC Distribution Width SD 60.1 fl (35.1-43.9); Red Blood Count 4.35 M/mm3 (4.2-5.4); White Blood Count 6.1 K/mm3 (4.4-11.0)
[2021-05-26 19:24] LABS: Red Blood Cells-Urine 0 SEEN /hpf (0-5)
[2021-05-26 19:26] LABS: Color, Urine Yellow (Yellow); Glucose, Dipstick Normal (Normal); Ketone-Dipstick 5 mg/dl (Negative); Leukocyte Esterase-Dipstick 25 /ul (Negative); Nitrite-Dipstick Negative (Negative); Occult Blood-Urine 25 /ul (Negative); Protein-Dipstick 30 mg/dl (Negative); Urine Bilirubin Dipstick Negative (Negative); Urine Clarity Clear (Clear); Urine Urobilinogen Normal (Normal)
[2021-05-26 19:31] LABS: Anion Gap 7 (5-15); BUN 2 mg/dL (7-18); BUN/Creat Ratio 2.5 RATIO (10-20); Calcium,Total 9.1 mg/dL (8.5-10.1); Chloride 102 mmol/L (98-107); Creatinine, Serum 0.79 mg/dL (0.55-1.02); EST Glomerular Filtration Rate 83 mL/min (>60); Est Glom Filt Rate - Afr Amer 100 mL/min (>60); Estimated Creatinine Clearance 80.37 ml/min; Glucose 105 mg/dL (74-106); Potassium 3.4 mmol/L (3.5-5.1); Sodium Level 139 mmol/L (136-145)
[2021-05-26 19:35] LABS: Bacteria 1+ /hpf (None Seen); Hyaline Cast 0-5 SEEN /lpf (0-5); Mucous, Urine 1+ /hpf (<or=2+); Squamous Epithelial Cells - UA 0-5 SEEN /hpf (5-10); White Blood Cells 0-5 SEEN /hpf (0-5)
[2021-05-26 20:08] LABS: AST(SGOT) 124 U/L (15-37); Alanine Aminotransfer ALT/SGPT 84 U/L (13-56); Albumin, Serum 3.7 g/dL (3.2-5.0); Alkaline Phosphatase 84 U/L (45-117); Bilirubin, Direct 0.11 mg/dL (0.00-0.30); Globulin 4.1 g/dL (2.2-4.2); Protein, Total 7.8 g/dL (6.4-8.2)
--- NOTE | 2021-05-26 20:23 | EDS_ITS ---
HPI HPI - GI History of Present Illness Chief Complaint: Abd Pain Informant: patient Abdominal Pain/Flank Pain Onset: Weeks (1) Context: Gradual Onset Timing: Continuous Quality: Cramping Location: Epigastric, RUQ and LUQ Worsened by: Nothing Relieved by: Nothing Nausea/Vomiting/Emesis GI Symptom: Positive for Nausea and Vomiting Quality: Negative for Coffee ground and Hematemesis Diarrhea/Melena/Hematochezia GI Symptom: Positive for Diarrhea; Negative for Melena and Hematochezia Stool Quality: Positive for Watery Associated Symptoms Associated Symptoms: Negative for Dysuria and Hematuria Narrative Narrative: Patient presents with abdominal pain that has been getting worse over the past week. Patient states it has gotten worse over the last 2 days. Patient states this feels similar to prior episodes of pancreatitis. Patient states her pain is over her upper abdomen. Patient describes it as cramping. Patient states nothing makes it better nothing makes it worse. Patient admits to nausea and vomiting. Patient denies any hematemesis or coffee-ground emesis. Patient states that her emesis is just stomach contents. Patient also admits to watery diarrhea that she describes as yellow. Patient denies any melena or hematochezia. Patient denies any dysuria or hematuria. [facility] Medical History Alcohol abuse Alcohol abuse Anxiety and depression Asthma CAD (coronary artery disease) Cervical neuropathy Depression Dissection, vertebral artery Fibromyalgia HTN (hypertension) Hypertension Kidney stones Lupus nephritis Lupus vasculitis Myocardial infarct Seizures Systemic lupus erythematosus Thrombocytopenia TIA (transient ischemic attack) Home Medications cyclobenzaprine 5 mg PO QHS PRN PRN 06/12/20 [History Last Taken 05/05/21] lorazepam 0.5 mg PO Q8H PRN PRN 06/12/20 [History Last Taken 05/05/21] hydroxychloroquine 200 mg PO BID 09/26/20 [History Last Taken 05/06/21] pantoprazole [Protonix] 40 mg PO BID 03/17/21 [History Last Taken 05/06/21] atorvastatin 20 mg PO QHS 05/06/21 [History Last Taken 05/05/21] folic acid 1 mg PO 0800 05/06/21 [History Last Taken 05/06/21] methotrexate sodium 15 mg PO WESA 05/06/21 [History Last Taken 05/01/21] thiamine HCl (vitamin B1) [Vitamin B-1] 100 mg PO DAILYCM 05/06/21 [History Last Taken 05/06/21] amlodipine 5 mg PO DAILY 05/20/21 [History Last Taken Unknown] hydrocodone-acetaminophen 1 tab PO Q8H PRN 05/20/21 [History Last Taken Unknown] hydroxyzine HCl 50 mg PO Q8H PRN PRN 05/20/21 [History Last Taken Unknown] orphenadrine citrate 100 mg PO BID 05/20/21 [History Last Taken Unknown] promethazine 25 mg PO Q6H PRN PRN #10 tablet 05/20/21 [Rx Last Taken Unknown] sertraline 50 mg PO DAILY 05/20/21 [History Last Taken Unknown] metronidazole [Flagyl] 250 mg PO BID 05/26/21 [History Last Taken Unknown] Allergy/AdvReac Type Severity Reaction Status Date / Time metoclopramide HCl Allergy anxious Verified 05/26/21 18:52 [From Reglan] peanut Allergy Anaphylaxis Verified 05/26/21 18:52 Sulfa (Sulfonamide Allergy Hives Verified 05/26/21 18:52 Antibiotics) prednisone AdvReac psychosis Verified 05/26/21 18:52 prochlorperazine AdvReac anxious Verified 05/26/21 18:52 [From Compazine] Family History Father CAD (coronary artery disease) Diabetes Multiple sclerosis Melanoma Mother Rheumatoid arthritis Melanoma Surgical History H/O cervical spine surgery H/O knee surgery History of cholecystectomy History of hysterectomy S/P appendectomy Social History household members: none housing: apartment Smoking Status: Never smoker alcohol intake: current alcohol intake frequency: 3 or more drinks per day Alcohol type: hard liquor substance use type: does not use ROS ROS ED Constitutional Constitutional ED: Denies chills or fever(s) Eyes Eyes: Denies blurry vision or change in vision ENT ENT ED: Denies rhinorrhea or sore throat Cardiovascular Cardiovascular: Denies chest pain or palpitations Respiratory/Chest Respiratory/Chest: Denies cough or dyspnea Gastrointestinal Gastrointestinal: Reports abdominal pain, diarrhea, nausea and vomiting; Denies melena Genitourinary Genitourinary ED: Denies dysuria or hematuria Musculoskeletal Musculoskeletal: Denies back pain or neck pain Integumentary Denies abscess or rash Neurologic Neurologic: Denies headache(s) or weakness Allergic/Immunologic Allergic/Immunologic ED: Denies mouth swelling or urticaria EXAM Physical Exam Const Vital Signs: 05/26/21 18:53 05/26/21 21:01 Temperature 98.1 F Temperature Source Temporal Pulse Rate 106 H 74 Respiratory Rate 18 16 Blood Pressure 141/120 H 112/74 Blood Pressure Mean 127 86 Pulse Ox 98 98 Oxygen Delivery Method Room Air Room Air Positive well nourished and well developed General Appearance ED: well developed HEENT Reports moist mucous membranes Neck supple and no JVD Resp normal respiratory effort and clear to auscultation bilaterally Cardio regular rate, regular rhythm and no murmurs GI normal to inspection, nondistended, normoactive bowel sounds and non-distended Auscultation: normoactive bowel sounds Palpation: soft and tender epigastric, LUQ and RUQ; Negative for guarding or rebound tenderness present Extremity normal to inspection and full ROM General Extremety ED: Negative for edema or tenderness General Extremity: Negative for edema Neuro oriented x3, CN's II-XII intact bilaterally and no sensory deficits noted Sensorium / Orientation: alert Motor Exam: strength 5/5 throughout Psych mental status grossly normal Skin no rashes or lesions noted MDM MDM MDM Narrative Medical decision making narrative: Patient was given IV fluids, morphine, and Zofran. Patient was feeling somewhat better on reevaluation. CBC and basic metabolic profile were obtained and were within normal limits. Hepatic profile and lipase were normal. Urinalysis does not show any evidence of urinary tract infection. Patient states she has Phenergan at home to help with the nausea. Patient was instructed to start with the liquid diet and then advance to a bland diet when she feels better. Patient was instructed to follow-up with her primary care physician in 3 to 5 days. Patient understood and was agreeable with the plan. All questions were answered. Lab Data Attestation: I reviewed the patient's lab results. Labs: Laboratory Results - last 24 hr 05/26/21 05/26/21 05/26/21 19:00 19:10 19:10 WBC 6.1 RBC 4.35 Hgb 12.5 Hct 38.7 MCV 89.0 MCH 28.7 MCHC 32.3 RDW Std Deviation 60.1 H RDW Coeff of Leeann 18.7 H Plt Count 257 MPV 9.8 Immature Gran % (Auto) 0.200 Neut % (Auto) 56.4 Lymph % (Auto) 29.9 [place] % (Auto) 11.1 H Eos % (Auto) 1.6 Baso % (Auto) 0.8 Absolute Neuts (auto) 3.5 Absolute Lymphs (auto) 1.83 Nucleated RBC % 0 Sodium 139 Potassium 3.4 L Chloride 102 Carbon Dioxide 30.0 Anion Gap 7 BUN 2 L Creatinine 0.79 Estim Creat Clear Calc 80.37 Est GFR (MDRD) Af Amer 100 Est GFR (MDRD) Non-Af 83 BUN/Creatinine Ratio 2.5 L Glucose 105 Calcium 9.1 Total Bilirubin Direct Bilirubin AST ALT Alkaline Phosphatase Total Protein Albumin Globulin Lipase Urine Color Yellow Urine Clarity Clear Urine pH 7.0 Ur Specific [place] 1.010 Urine Protein 30 H Urine Glucose (UA) Normal Urine Ketones 5 H Urine Occult Blood 25 H Urine Nitrite Negative Urine Bilirubin Negative Urine Urobilinogen Normal Ur Leukocyte Esterase 25 H Urine RBC 0 SEEN Urine WBC 0-5 SEEN Ur Squamous Epith Cells 0-5 SEEN Urine Bacteria 1+ Hyaline Casts 0-5 SEEN Urine Mucus 1+ 05/26/21 05/26/21 19:10 19:10 WBC RBC Hgb Hct MCV MCH MCHC RDW Std Deviation RDW Coeff of Leeann Plt Count MPV Immature Gran % (Auto) Neut % (Auto) Lymph % (Auto) [place] % (Auto) Eos % (Auto) Baso % (Auto) Absolute Neuts (auto) Absolute Lymphs (auto) Nucleated RBC % Sodium Potassium Chloride Carbon Dioxide Anion Gap BUN Creatinine Estim Creat Clear Calc Est GFR (MDRD) Af Amer Est GFR (MDRD) Non-Af BUN/Creatinine Ratio Glucose Calcium Total Bilirubin 0.40 Direct Bilirubin 0.11 AST 124 H ALT 84 H Alkaline Phosphatase 84 Total Protein 7.8 Albumin 3.7 Globulin 4.1 Lipase 202 Urine Color Urine Clarity Urine pH Ur Specific [place] Urine Protein Urine Glucose (UA) Urine Ketones Urine Occult Blood Urine Nitrite Urine Bilirubin Urine Urobilinogen Ur Leukocyte Esterase Urine RBC Urine WBC Ur Squamous Epith Cells Urine Bacteria Hyaline Casts Urine Mucus Discharge Plan Triage Chief Complaint: Abd Pain ED Provider: Darnell Giles Dx/Rx/DC Orders Clinical Impression: Abdominal pain Instructions: ED Abdominal Pain Unkn Cause Fem Prescriptions: No Action cyclobenzaprine 10 MG tablet 5 mg PO QHS PRN PRN (Reason: Spasms) RF: 0 lorazepam 1 MG tablet 0.5 mg PO Q8H PRN PRN (Reason: Anxiety) RF: 0 hydroxychloroquine 200 MG tablet 200 mg PO BID RF: 0 pantoprazole [Protonix] 40 mg Tablet,Delayed Release (Dr/Ec) 40 mg PO BID RF: 0 atorvastatin 20 MG tablet 20 mg PO QHS RF: 0 thiamine HCl (vitamin B1) [Vitamin B-1] 100 mg tablet 100 mg PO DAILYCM RF: 0 methotrexate sodium 15 mg tablet 15 mg PO WESA RF: 0 folic acid 1 mg tablet 1 mg PO 0800 RF: 0 hydrocodone-acetaminophen 5-325 mg Tablet 1 tab PO Q8H PRN (Reason: Pain) RF: 0 hydroxyzine HCl 50 mg Tablet 50 mg PO Q8H PRN PRN (Reason: Pain) RF: 0 amlodipine 5 mg Tablet 5 mg PO DAILY RF: 0 orphenadrine citrate 100 mg Tablet Extended Release 100 mg PO BID RF: 0 sertraline 50 mg Tablet 50 mg PO DAILY RF: 0 promethazine [promethazine] 25 MG tablet 25 mg PO Q6H PRN PRN (Reason: Nausea) Qty: 10 RF: 0 metronidazole [Flagyl] 250 mg Tablet 250 mg PO BID RF: 0 Primary Care Provider: Froylan Grant Referrals: Froylan Grant MD [Primary Care Provider] - 3-5 Days Disposition Disposition: Home, Self Care
[2021-05-26 20:40] LABS: Lipase 202 U/L (73-393)
[2021-05-26] MEDS: Ondansetron 4 MG/2 ML Vial IV (20:55)
[2021-05-26] MEDS: Morphine 4 MG/ML Syringe IV (20:55)
[2021-05-26 21:01] VITALS: BP 112/74; PULSE 74; RESP 16; O2SAT 98
[2021-05-26 21:38] VITALS: BP 125/85; PULSE 74; RESP 17; O2SAT 98
== END 2021-05-26 21:53 | disposition home or self-care (01) ==
PROVIDERS: Emergency Provider Emergency Medicine; PCP Internal Medicine
DX: R10.13 Epigastric pain (principal); R10.12 Left upper quadrant pain; R10.11 Right upper quadrant pain; F41.9 Anxiety disorder, unspecified; F32.9 Major depressive disorder, single episode, unspecified; J45.909 Unspecified asthma, uncomplicated; I25.10 Atherosclerotic heart disease of native coronary artery without angina pectoris; M79.7 Fibromyalgia; I10 Essential (primary) hypertension; Z86.73 Personal history of transient ischemic attack (TIA), and cerebral infarction without residual deficits; Z79.899 Other long term (current) drug therapy
CPT/HCPCS: 80048; 80076; 81001; 83690; 85025; 96374; 96375; 99282; J7030; A4216; J2405

== ENCOUNTER 2021-06-05 13:17 | Inpatient (IN) | payer MEDICAID, SELFPAY ==
[2021-06-05 13:17] VITALS: BP 135/95; PULSE 102; RESP 20; TEMP 36.8; O2SAT 96; BMI 19.8
--- NOTE | 2021-06-05 14:07 | EKG12_ITS ---
Test Reason : ABDOMINAL PAIN Blood Pressure : / mmHG Vent. Rate : 082 BPM Atrial Rate : 082 BPM P-R Int : 154 ms QRS Dur : 088 ms QT Int : 400 ms P-R-T Axes : 053 032 049 degrees QTc Int : 467 ms Normal sinus rhythm Normal ECG Confirmed by ROSE HICKMAN, BARNEY ([id number]), news videotape editor ANH BEARD ([id number]) on 06/08/2021 2:15:34 PM Referred By: [address] Confirmed By:BARNEY ROSE MD
--- NOTE | 2021-06-05 14:09 | ED.VIS.GI ---
HPI HPI - GI History of Present Illness Chief Complaint: Abd Pain Informant: patient Narrative Narrative: Patient presents for concern of pancreatitis. She has had approximately 6 episodes of this. This is related to alcohol use. Her last alcohol use was yesterday when she had a [employer] hard lemonade. This episode started about 2 weeks ago. She was seen in the emergency department. Her work-up was essentially negative so she went home with medications. She has been doing okay but her symptoms never resolved. The last 4 days she has had more nausea vomiting and cannot keep anything down. No blood in the vomitus. When she wiped she has had some small amount of red blood but no large amount with the stool and no melena. Her pain is in the epigastric and left upper quadrant which is typical for her. It radiates to the back which is also typical. She she has no chest pain or trouble breathing. She has had prior total hysterectomy and cholecystectomy. She states she has been taking Phenergan at home but she is still vomiting and has not kept anything down for 4 days. No fevers. Trying to eat makes it worse. Having a drink did make it slightly better. [facility] Medical History Alcohol abuse Alcohol abuse Anxiety and depression Asthma CAD (coronary artery disease) Cervical neuropathy Depression Dissection, vertebral artery Fibromyalgia HTN (hypertension) Hypertension Kidney stones Lupus nephritis Lupus vasculitis Myocardial infarct Pancreatitis Seizures Systemic lupus erythematosus Thrombocytopenia TIA (transient ischemic attack) Home Medications hydroxychloroquine 200 mg PO BID 09/26/20 [History Last Taken 06/05/21] pantoprazole [Protonix] 40 mg PO BID 03/17/21 [History Last Taken 06/04/21] atorvastatin 20 mg PO QHS 05/06/21 [History Last Taken 06/02/21] amlodipine 5 mg PO DAILY 05/20/21 [History Last Taken 06/02/21] hydroxyzine HCl 50 mg PO Q8H PRN PRN 05/20/21 [History Last Taken Unknown] promethazine 25 mg PO Q6H PRN PRN #10 tablet 05/20/21 [Rx Last Taken Unknown] ergocalciferol (vitamin D2) 1,250 mcg PO SA 06/05/21 [History Last Taken 05/30/21] methotrexate sodium 15 mg PO WESA 06/05/21 [History Last Taken 06/03/21] sertraline 150 mg PO DAILY 06/05/21 [History Last Taken 06/02/21] Allergy/AdvReac Type Severity Reaction Status Date / Time metoclopramide HCl Allergy anxious Verified 05/26/21 18:52 [From Reglan] peanut Allergy Anaphylaxis Verified 05/26/21 18:52 Sulfa (Sulfonamide Allergy Hives Verified 05/26/21 18:52 Antibiotics) prednisone AdvReac psychosis Verified 05/26/21 18:52 prochlorperazine AdvReac anxious Verified 05/26/21 18:52 [From Compazine] Family History (Updated 06/05/21 @ 20:07 by Evangelina Thacker) Father Diabetes CAD (coronary artery disease) Melanoma Mother Rheumatoid arthritis Melanoma Other Multiple sclerosis Surgical History H/O cervical spine surgery H/O knee surgery History of cholecystectomy History of hysterectomy S/P appendectomy Social History (Updated 06/05/21 @ 19:[address] MD) household members: none housing: apartment Smoking Status: Never smoker alcohol intake: current alcohol intake frequency: 3 or more drinks per day Alcohol type: hard liquor details: Patient reports only recently 2 [employer] hard lemonades, last at midnight. substance use type: does not use ROS ROS ED Constitutional Constitutional ED: Denies chills or fever(s) ENT ENT ED: Denies rhinorrhea or sore throat Cardiovascular Cardiovascular: Denies chest pain or palpitations Respiratory/Chest Respiratory/Chest: Denies cough, dyspnea or sputum Gastrointestinal Gastrointestinal: Reports abdominal pain, diarrhea, nausea and vomiting; Denies constipation or melena Genitourinary Genitourinary ED: Denies dysuria or hematuria Musculoskeletal Musculoskeletal: Denies arthralgias or myalgias Integumentary Denies rash Neurologic Neurologic: Denies headache(s) Endocrine Endocrinology: Denies polydipsia or polyuria Hematologic/Lymphatic Hematologic/Lymphatic: Denies easy bleeding or easy bruising Allergic/Immunologic Allergic/Immunologic ED: Denies urticaria EXAM Physical Exam Const Vital Signs: 06/05/21 13:17 06/05/21 17:12 Temperature 98.3 F Temperature Source Temporal Pulse Rate 102 H 86 Respiratory Rate 20 H 15 Blood Pressure 135/95 H 114/73 Blood Pressure Mean 108 86 Pulse Ox 96 93 Oxygen Delivery Method Room Air Room Air Positive well nourished and well developed General Appearance ED: well developed and NAD HEENT Reports dry mucous membranes HEENT Narrative: Mildly dry mucous membranes. normocephalic and atraumatic Mouth ED: Yes dry mucous membranes Mouth: dry mucous membranes Eyes PERRL and EOMs intact bilaterally General Eye ED: Negative for scleral icterus Neck no JVD Resp normal respiratory effort and clear to auscultation bilaterally Auscultation: Negative for rales, rhonchi or wheezes Cardio regular rate, regular rhythm and no murmurs GI non-distended and no masses GI Narrative: Patient does have some mild tenderness in the epigastric toward left upper quadrant area. Rest of the abdomen is actually relatively benign. Abdomen is not distended. Bowel sounds are still present sound relatively normal. Auscultation: normoactive bowel sounds Palpation: soft Back/Spine no CVA tenderness Extremity full ROM General Extremety ED: Negative for edema General Extremity: Negative for edema Neuro Sensorium / Orientation: alert and oriented to person Psych mental status grossly normal Skin General Skin Exam: Negative for jaundice Lesions: no lesions Rashes: no rashes MDM MDM MDM Narrative Medical decision making narrative: CBC is unremarkable. Electrolytes look good. LFTs are not too remarkable. Lipase is 261. However, patient was still having nausea and a lot of symptoms. We scanned her abdomen. She does have signs of inflammation mostly the head of the pancreas and some diffuse colitis. With these findings and her history I think she will need to come in. I also discussed with her about alcohol use. It surprising that she has an alcohol level of 300 when she only had 1 [employer] hard lemonade yesterday. She swears she has not been drinking anything else though. Lab Data Attestation: I reviewed the patient's lab results. Labs: Laboratory Results - last 24 hr 06/05/21 06/05/21 06/05/21 14:30 14:30 14:30 WBC 6.6 RBC 4.27 Hgb 12.5 Hct 37.9 MCV 88.8 MCH 29.3 MCHC 33.0 RDW Std Deviation 61.0 H RDW Coeff of Leeann 18.6 H Plt Count 361 MPV 9.5 Immature Gran % (Auto) 0.300 Neut % (Auto) 58.9 Lymph % (Auto) 28.7 [place] % (Auto) 10.1 H Eos % (Auto) 0.5 Baso % (Auto) 1.5 H Absolute Neuts (auto) 3.9 Absolute Lymphs (auto) 1.90 Nucleated RBC % 0 Sodium 140 Potassium 3.9 Chloride 105 Carbon Dioxide 31.0 Anion Gap 4 L BUN 5 L Creatinine 0.64 Estim Creat Clear Calc 98.98 Est GFR (MDRD) Af Amer 127 Est GFR (MDRD) Non-Af 105 BUN/Creatinine Ratio 7.8 L Glucose 112 H Lactic Acid Calcium 7.9 L Phosphorus Magnesium Total Bilirubin 0.30 AST 93 H ALT 56 Alkaline Phosphatase 89 Total Protein 6.7 Albumin 2.9 L Globulin 3.8 Albumin/Globulin Ratio 0.8 L Lipase 261 Procalcitonin Urine Color Urine Clarity Urine pH Ur Specific [place] Urine Protein Urine Glucose (UA) Urine Ketones Urine Occult Blood Urine Nitrite Urine Bilirubin Urine Urobilinogen Ur Leukocyte Esterase Urine RBC Urine WBC Ur Squamous Epith Cells Urine Bacteria Urine Mucus Urine Opiates Screen Urine Methadone Screen Ur Barbiturates Screen Ur Phencyclidine Scrn Ur Amphetamines Screen U Methamphetamin-MDMA U Benzodiazepines Scrn Urine Cocaine Screen U Cannabinoids Screen Ur Drug Screen Comment Ethyl Alcohol 294.0 06/05/21 06/05/21 06/05/21 14:30 14:30 14:30 WBC RBC Hgb Hct MCV MCH MCHC RDW Std Deviation RDW Coeff of Leeann Plt Count MPV Immature Gran % (Auto) Neut % (Auto) Lymph % (Auto) [place] % (Auto) Eos % (Auto) Baso % (Auto) Absolute Neuts (auto) Absolute Lymphs (auto) Nucleated RBC % Sodium Potassium Chloride Carbon Dioxide Anion Gap BUN Creatinine Estim Creat Clear Calc Est GFR (MDRD) Af Amer Est GFR (MDRD) Non-Af BUN/Creatinine Ratio Glucose Lactic Acid 2.9 H* Calcium Phosphorus 2.7 Magnesium 2.0 Total Bilirubin AST ALT Alkaline Phosphatase Total Protein Albumin Globulin Albumin/Globulin Ratio Lipase Procalcitonin < 0.04 Urine Color Urine Clarity Urine pH Ur Specific [place] Urine Protein Urine Glucose (UA) Urine Ketones Urine Occult Blood Urine Nitrite Urine Bilirubin Urine Urobilinogen Ur Leukocyte Esterase Urine RBC Urine WBC Ur Squamous Epith Cells Urine Bacteria Urine Mucus Urine Opiates Screen Urine Methadone Screen Ur Barbiturates Screen Ur Phencyclidine Scrn Ur Amphetamines Screen U Methamphetamin-MDMA U Benzodiazepines Scrn Urine Cocaine Screen U Cannabinoids Screen Ur Drug Screen Comment Ethyl Alcohol 06/05/21 06/05/21 15:32 15:32 WBC RBC Hgb Hct MCV MCH MCHC RDW Std Deviation RDW Coeff of Leeann Plt Count MPV Immature Gran % (Auto) Neut % (Auto) Lymph % (Auto) [place] % (Auto) Eos % (Auto) Baso % (Auto) Absolute Neuts (auto) Absolute Lymphs (auto) Nucleated RBC % Sodium Potassium Chloride Carbon Dioxide Anion Gap BUN Creatinine Estim Creat Clear Calc Est GFR (MDRD) Af Amer Est GFR (MDRD) Non-Af BUN/Creatinine Ratio Glucose Lactic Acid Calcium Phosphorus Magnesium Total Bilirubin AST ALT Alkaline Phosphatase Total Protein Albumin Globulin Albumin/Globulin Ratio Lipase Procalcitonin Urine Color Yellow Urine Clarity Sl. Cloudy Urine pH 7.0 Ur Specific [place] 1.005 Urine Protein Negative Urine Glucose (UA) Normal Urine Ketones Negative Urine Occult Blood 25 H Urine Nitrite Negative Urine Bilirubin Negative Urine Urobilinogen Normal Ur Leukocyte Esterase 25 H Urine RBC 0 SEEN Urine WBC 0-5 SEEN Ur Squamous Epith Cells 0-5 SEEN Urine Bacteria 0 SEEN Urine Mucus 0 SEEN Urine Opiates Screen POSITIVE H Urine Methadone Screen NEGATIVE Ur Barbiturates Screen POSITIVE H Ur Phencyclidine Scrn NEGATIVE Ur Amphetamines Screen NEGATIVE U Methamphetamin-MDMA NEGATIVE U Benzodiazepines Scrn NEGATIVE Urine Cocaine Screen NEGATIVE U Cannabinoids Screen NEGATIVE Ur Drug Screen Comment Ethyl Alcohol Radiography Diagnostic Testing: Radiology Impression Abdomen/Pelvis CT 06/05/21 16:25 IMPRESSION: Diffuse submucosal thickening in the majority of the colon suggests a diffuse colitis, this is likely infectious or inflammatory. No perforation or abscess is noted Boggy appearance to the head of the pancreas with associated induration of the peripancreatic fat and fluid with thickening of the duodenum and hepatic flexure suggesting acute pancreatitis. The pancreatic mid body and tail are free of inflammatory changes Fatty liver Changes consistent with previous cholecystectomy Degenerative bony changes Electronically Signed: Hilario Yip MD at 16:58 EDT , Service support , EKG Initial EKG: Comments: EKG done for upper abdominal pain read by me shows normal sinus rhythm with a rate of 82. No ectopy noted. No acute ST elevation or depression. ME interval, QRS duration and QTc are normal. Discharge Plan Dx/Rx/DC Orders Clinical Impression: Alcohol intoxication, Colitis, Acute pancreatitis Disposition Disposition: Acute Care Hospital [facility] Discharge Date/Time: 06/05/21 18:27
[2021-06-05 14:41] LABS: Absolute Neutrophil Count 3.9 X10^3/uL (2.0-7.7); Basophil% 1.5 % (0-1); Eosinophil# 0.03 X10^3/uL; Eosinophils% 0.5 % (0-5); Hematocrit 37.9 % (37-47); Hemoglobin 12.5 g/dL (12.0-15.0); Lymphocyte % 28.7 % (19-41); Mean Corpuscular Hgb 29.3 pg (27.0-32.0); Mean Corpuscular Volume 88.8 fL (81-99); Mean Platelet Vol. 9.5 fl (6.2-12.0); Monocyte# 0.67 X10^3/uL; Monocyte% 10.1 % (0-10); NRBC Flagged by Analyzer 0 % (0-5); Neutrophil # 3.89 X10^3/uL (2.7-7.7); Neutrophil % 58.9 % (47-70); Platelet Count 361 K/mm3 (150-450); RBC Distribution Width CV 18.6 % (11.6-14.6); Red Blood Count 4.27 M/mm3 (4.2-5.4); White Blood Count 6.6 K/mm3 (4.4-11.0)
[2021-06-05] MEDS: Ondansetron 4 MG/2 ML Vial IV ×2 (14:44→20:22)
[2021-06-05] MEDS: Morphine 4 MG/ML Syringe IV ×2 (14:45→16:02)
[2021-06-05] MEDS: 0.9% Normal Saline 1,000 ML 1000 ML IV (14:45)
[2021-06-05 15:05] LABS: ALB/GLOB Ratio 0.8 RATIO (0.9-2.4); AST(SGOT) 93 U/L (15-37); Alanine Aminotransfer ALT/SGPT 56 U/L (13-56); Albumin, Serum 2.9 g/dL (3.2-5.0); Alkaline Phosphatase 89 U/L (45-117); Anion Gap 4 (5-15); BUN 5 mg/dL (7-18); BUN/Creat Ratio 7.8 RATIO (10-20); Calcium,Total 7.9 mg/dL (8.5-10.1); Chloride 105 mmol/L (98-107); Creatinine, Serum 0.64 mg/dL (0.55-1.02); EST Glomerular Filtration Rate 105 mL/min (>60); Est Glom Filt Rate - Afr Amer 127 mL/min (>60); Estimated Creatinine Clearance 98.98 ml/min; Globulin 3.8 g/dL (2.2-4.2); Glucose 112 mg/dL (74-106); Lipase 261 U/L (73-393); Potassium 3.9 mmol/L (3.5-5.1); Protein, Total 6.7 g/dL (6.4-8.2); Sodium Level 140 mmol/L (136-145)
[2021-06-05 15:19] LABS: Lactic Acid 2.9 mmol/L (0.4-1.9)
[2021-06-05 15:40] LABS: Bacteria 0 SEEN /hpf (None Seen); Mucous, Urine 0 SEEN /hpf (<or=2+); Red Blood Cells-Urine 0 SEEN /hpf (0-5)
[2021-06-05 15:50] LABS: Color, Urine Yellow (Yellow); Glucose, Dipstick Normal (Normal); Ketone-Dipstick Negative (Negative); Leukocyte Esterase-Dipstick 25 /ul (Negative); Nitrite-Dipstick Negative (Negative); Occult Blood-Urine 25 /ul (Negative); Protein-Dipstick Negative (Negative); Specific Gravity, Urine 1.005 (1.002-1.030); Urine Bilirubin Dipstick Negative (Negative); Urine Clarity Sl. Cloudy (Clear); Urine Urobilinogen Normal (Normal)
[2021-06-05] MEDS: proMETHazine 25 MG/ML Syringe 12.5 MG IV (16:00)
[2021-06-05 16:14] LABS: Squamous Epithelial Cells - UA 0-5 SEEN /hpf (5-10); White Blood Cells 0-5 SEEN /hpf (0-5)
--- NOTE | 2021-06-05 16:25 | CT_ITS ---
STUDY: CT ABDOMEN AND PELVIS WITH CONTRAST REASON FOR EXAM: Female, 51 years old. Diffuse abdominal pain, history of pancreatitis RADIATION DOSAGE (If Supplied By Facility): CTDIvol = ( 15.51 ) mGy, DLP = ( 434.88 ) mGycm TECHNIQUE: Transaxial images were obtained from the dome of the diaphragm to the symphysis pubis without oral contrast. IV 100mL Isovue-300 was administered. Sagittal and coronal images were reconstructed. Individualized dose optimization techniques were used for this CT. COMPARISON: 03/17/2021 FINDINGS: The visualized lung bases are unremarkable aside from dependent atelectasis. The visualized portions of the heart are within normal limits. There is decreased attenuation of the liver consistent with steatosis. Changes suggesting previous cholecystectomy, there is nonspecific induration of the pancreatic head, and nonspecific thickening of the duodenum and hepatic flexure. Findings suggest focal pancreatitis with associated duodenitis and colitis. No perforation or abscess is noted. The pancreatic body and tail are unremarkable. Spleen is unremarkable Normal bilateral adrenal glands. Normal right kidney. Normal left kidney. Normal visualized stomach. Normal small intestine. In addition to the previously noted submucosal thickening in the hepatic flexure, there are other areas of diffuse submucosal thickening elsewhere throughout the colon including the sigmoid colon and rectum suggesting a diffuse colitis. This is likely infectious or inflammatory. The appendix is not visualized. Normal abdominal aorta. Normal inferior vena cava. Normal retroperitoneum. Normal urinary bladder. Normal abdominal wall. Mild degenerative bony changes CT/Abdomen/Pelvis W IV Cont ONLY IMPRESSION: Diffuse submucosal thickening in the majority of the colon suggests a diffuse colitis, this is likely infectious or inflammatory. No perforation or abscess is noted Boggy appearance to the head of the pancreas with associated induration of the peripancreatic fat and fluid with thickening of the duodenum and hepatic flexure suggesting acute pancreatitis. The pancreatic mid body and tail are free of inflammatory changes Fatty liver Changes consistent with previous cholecystectomy Degenerative bony changes Electronically Signed: Hilario Yip MD at 16:58 EDT , Service support ,
[2021-06-05 17:12] VITALS: BP 114/73; PULSE 86; RESP 15; O2SAT 93
--- NOTE | 2021-06-05 17:42 | PCM.HP.STD ---
HPI - General General Date of Admission: 06/05/21 Date of Service: 06/05/21 Chief Complaint: Abdominal pain, N/V HPI Narrative The patient is a 51 y/o F w/ PMHx: Anxiety and Depression, CAD, Asthma, Chronic back pain with cervical radiculopathy, Fibromyalgia, SLE with associated nephritis and vasculitis, HTN, HLD, Chronic Thrombocytopenia, Chronic anemia, Seizure disorder, Hx TIA, EtOH abuse and Hx of Narcotic opiate abuse, most recently admitted for acute EtOH withdrawal treatment program who now re-presents to the [facility] ED on 06/05/21 with history of worsening abdominal pain over the last week, primarily midepigastric, worsened approximately 4 days prior to current presentation described as stabbing in the epigastric and bilateral upper although left greater than right quadrants, 10 out of 10 in severity with associated nausea, emesis and loose stools, not improving prompting eventual ED presentation. On day of ED presentation she specifically and very adamantly states she only drank 2 Nicholas's hard lemonade and reports that the last drink was a bit after midnight on day of ED presentation despite ethyl alcohol level 294. Work-up in the ED included T 98.3 temporally, heart rate 102, BP 135/95, respiratory rate 20, 96% on room air, CBC with WC 6.7, hemoglobin 12.5, platelet 361 without marked shift, CMP with glucose 112, lactic acid 2.9, AST/ALT 93/56 otherwise not marked appearing, lipase despite CT findings to 61, procalcitonin less than 0.04, urinalysis not marked appearing, rapid Covid antigen negative, CT abdomen and pelvis with diffuse submucosal thickening in the majority of the colon suggestive of diffuse colitis possibly infectious or inflammatory with no perforation or abscess noted and boggy appearance to the head of the pancreas with associated induration of the peripancreatic fat and fluid with thickening of the duodenum and hepatic flexure suggestive of acute pancreatitis. [facility] Medical History Alcohol abuse Alcohol abuse Anxiety and depression Asthma CAD (coronary artery disease) Cervical neuropathy Depression Dissection, vertebral artery Fibromyalgia HTN (hypertension) Hypertension Kidney stones Lupus nephritis Lupus vasculitis Myocardial infarct Pancreatitis Seizures Systemic lupus erythematosus Thrombocytopenia TIA (transient ischemic attack) Home Medications hydroxychloroquine 200 mg PO BID 09/26/20 [History Last Taken 06/05/21] pantoprazole [Protonix] 40 mg PO BID 03/17/21 [History Last Taken 06/04/21] atorvastatin 20 mg PO QHS 05/06/21 [History Last Taken 06/02/21] amlodipine 5 mg PO DAILY 05/20/21 [History Last Taken 06/02/21] hydroxyzine HCl 50 mg PO Q8H PRN PRN 05/20/21 [History Last Taken Unknown] promethazine 25 mg PO Q6H PRN PRN #10 tablet 05/20/21 [Rx Last Taken Unknown] ergocalciferol (vitamin D2) 1,250 mcg PO SA 06/05/21 [History Last Taken 05/30/21] methotrexate sodium 15 mg PO WESA 06/05/21 [History Last Taken 06/03/21] sertraline 150 mg PO DAILY 06/05/21 [History Last Taken 06/02/21] Allergy/AdvReac Type Severity Reaction Status Date / Time metoclopramide HCl Allergy anxious Verified 05/26/21 18:52 [From Reglan] peanut Allergy Anaphylaxis Verified 05/26/21 18:52 Sulfa (Sulfonamide Allergy Hives Verified 05/26/21 18:52 Antibiotics) prednisone AdvReac psychosis Verified 05/26/21 18:52 prochlorperazine AdvReac anxious Verified 05/26/21 18:52 [From Compazine] Family History Father CAD (coronary artery disease) Diabetes Multiple sclerosis Melanoma Mother Rheumatoid arthritis Melanoma Surgical History H/O cervical spine surgery H/O knee surgery History of cholecystectomy History of hysterectomy S/P appendectomy Social History (Updated 06/05/21 @ 19:[address] MD) household members: none housing: apartment Smoking Status: Never smoker alcohol intake: current alcohol intake frequency: 3 or more drinks per day Alcohol type: hard liquor details: Patient reports only recently 2 nicholas's hard lemonades, last at midnight. substance use type: does not use ROS ROS Narrative Admission Review of Systems: CONSTITUTIONAL: No weight loss, fever, chills, + weakness or fatigue. HEENT: Eyes: No visual loss, blurred vision, double vision or yellow sclerae. Ears, Nose, Throat: No hearing loss, sneezing, congestion, runny nose or sore throat. SKIN: No rash or itching, lesions, wounds. CARDIOVASCULAR: No chest pain, chest pressure or chest discomfort, palpitations, edema, orthopnea, syncopal events. RESPIRATORY: No shortness of breath, cough or sputum, wheezing, hemoptysis. GASTROINTESTINAL: + anorexia, nausea, vomiting, diarrhea, abdominal pain, No melena, BRBPR. GENITOURINARY: No dysuria, frequency, urgency or retention. NEUROLOGICAL: No headache, dizziness, syncope, paralysis, ataxia, numbness or tingling in the extremities, focal weakness, change in bowel or bladder control, seizure. MUSCULOSKELETAL:+ muscle, back pain, joint pain or stiffness. HEMATOLOGIC: No anemia, bleeding or bruising. LYMPHATICS: No enlarged nodes. No history of splenectomy. PSYCHIATRIC: + history of depression or anxiety. ENDOCRINOLOGIC: No reports of sweating, cold or heat intolerance. No polyuria or polydipsia. ALLERGIES: + history of asthma, hives, eczema or rhinitis. Vital Signs Vital Signs Vital Signs: 06/05/21 13:17 06/05/21 17:12 Temperature 98.3 F Temperature Source Temporal Pulse Rate 102 H 86 Respiratory Rate 20 H 15 Blood Pressure 135/95 H 114/73 Blood Pressure Mean 108 86 Pulse Ox 96 93 Oxygen Delivery Method Room Air Room Air Weight Weight: 130 lb Body Mass Index (BMI) 19.8 Physical Exam Narrative Physical Examination: General: Awake, alert, oriented x 3 and cooperative, seated upright in the ED bed in no apparent distress, her primary concern upon evaluation was making sure that it was understood she only had 2 specific alcoholic beverages and she could not understand why her alcohol level was so elevated. Skin: Normal color, normal turgor, no icterus, no cyanosis. HEENT: AT/NC, EOMI, PERRLA, mildly dry MM, no carotid bruits or JVD noted. Lungs: CTA bilaterally, moderate effort, mild decrease BL bases, no rales, ronchi or wheezing. Heart: Mildly tachycardic with regular rhythm; no gallop, rub audible. Abdomen: Soft, discomfort with palpation of primarily the epigastric and left upper quadrant, voluntary guarding, no specific rebound but very hesitant with examination, ND, hyperactive BS, no HSM. Extremities: No cyanosis, clubbing, or edema. Neurological: Patient awake, alert, oriented as noted, cognitive function intact; pupils equally reactive to light and accommodation, cranial nerves II-XII grossly normal, moving all 4 extremities, no focal deficits, strength mildly to moderately global decreased. Psychiatric: Affect appears mildly irritable, no acute evidence of depressive or anxiety feelings. Results Lab / Micro Data Result Diagrams: 06/05/21 14:30 06/05/21 14:30 Labs: Laboratory Results - last 24 hr 06/05/21 14:30: WBC 6.6, RBC 4.27, Hgb 12.5, Hct 37.9, MCV 88.8, MCH 29.3, MCHC 33.0, RDW Std Deviation 61.0 H, RDW Coeff of Leeann 18.6 H, Plt Count 361, MPV 9.5, Immature Gran % (Auto) 0.300, Neut % (Auto) 58.9, Lymph % (Auto) 28.7, [place] % (Auto) 10.1 H, Eos % (Auto) 0.5, Baso % (Auto) 1.5 H, Absolute Neuts (auto) 3.9, Absolute Lymphs (auto) 1.90, Nucleated RBC % 0 06/05/21 14:30: Sodium 140, Potassium 3.9, Chloride 105, Carbon Dioxide 31.0, Anion Gap 4 L, BUN 5 L, Creatinine 0.64, Estim Creat Clear Calc 98.98, Est GFR (MDRD) Af Amer 127, Est GFR (MDRD) Non-Af 105, BUN/Creatinine Ratio 7.8 L, Glucose 112 H, Calcium 7.9 L, Total Bilirubin 0.30, AST 93 H, ALT 56, Alkaline Phosphatase 89, Total Protein 6.7, Albumin 2.9 L, Globulin 3.8, Albumin/Globulin Ratio 0.8 L, Lipase 261 06/05/21 14:30: Ethyl Alcohol 294.0 06/05/21 14:30: Lactic Acid 2.9 H* 06/05/21 15:32: Urine Color Yellow, Urine Clarity Sl. Cloudy, Urine pH 7.0, Ur Specific [place] 1.005, Urine Protein Negative, Urine Glucose (UA) Normal, Urine Ketones Negative, Urine Occult Blood 25 H, Urine Nitrite Negative, Urine Bilirubin Negative, Urine Urobilinogen Normal, Ur Leukocyte Esterase 25 H, Urine RBC 0 SEEN, Urine WBC 0-5 SEEN, Ur Squamous Epith Cells 0-5 SEEN, Urine Bacteria 0 SEEN, Urine Mucus 0 SEEN Radiology Impression Abdomen/Pelvis CT 06/05/21 16:25 IMPRESSION: Diffuse submucosal thickening in the majority of the colon suggests a diffuse colitis, this is likely infectious or inflammatory. No perforation or abscess is noted Boggy appearance to the head of the pancreas with associated induration of the peripancreatic fat and fluid with thickening of the duodenum and hepatic flexure suggesting acute pancreatitis. The pancreatic mid body and tail are free of inflammatory changes Fatty liver Changes consistent with previous cholecystectomy Degenerative bony changes Electronically Signed: Hilario Yip MD at 16:58 EDT , Service support , Assessment & Plan Assessment/Plan (1) Pancreatitis: QUALIFIERS: Chronicity: acute Pancreatitis type: alcohol induced Acute pancreatitis complication: unspecified Qualified Code(s): K85.20 - Alcohol induced acute pancreatitis without necrosis or infection (2) Colitis: PLAN: The patient is a 51 y/o F w/ PMHx: Anxiety and Depression, CAD, Asthma, Chronic back pain with cervical radiculopathy, Fibromyalgia, SLE with associated nephritis and vasculitis, HTN, HLD, Chronic Thrombocytopenia, Chronic anemia, Seizure disorder, Hx TIA, EtOH abuse and Hx of Narcotic opiate abuse, most recently admitted for acute EtOH withdrawal treatment program who now re-presents to the [facility] ED on 06/05/21 with history of worsening abdominal pain over the last week, primarily midepigastric, worsened approximately 4 days prior to current presentation described as stabbing in the epigastric and bilateral upper although left greater than right quadrants, 10 out of 10 in severity with associated nausea, emesis and loose stools, not improving prompting eventual ED presentation. 1. Acute pancreatitis w/ abdominal pain, N/V/Diarrhea, Questionable Diffuse Colitis: CBC with no marked WC elevation, no left shift, procalcitonin less than 0.04. Will admit to medical surgical floor, maintain on IVFs, NPO, PPI, IV/po pain control, trend lipase, CMP. Discussed frankly that patient's alcohol abuse is her risk factor for acute pancreatitis. Patient does have underlying history of narcotic abuse however given significant findings on imaging will use short course of oral and IV narcotic therapy. When patient is discharged it would be in her best interest to avoid any discharge narcotic therapies. Additionally will obtain C. difficile as well as enteric stool pathogen assessment. Will defer any antibiotic therapies given as noted no marked CBC W elevation or left shift, afebrile and procalcitonin unremarkable at this time. May reconsider if any concerning findings. 2. Lactic acidosis: Likely secondary to #1 with dehydration, will aggressively hydrate with fluid boluses and continue aggressive hydration, trend per facility protocol. 3. EtOH Abuse: Patient actively drinking again, states she only had 2 mikes hard lemonade's with last drink at approximately midnight on day of presentation however her alcohol level is significantly elevated above what would correspond. Will maintain on CIWA protocol, MVI, thiamine and folic acid. Magnesium and phosphorus levels requested. Case management consulted for substance abuse. 4. SLE with associated nephritis and vasculitis: We will continue patient home hydroxychloroquine, methotrexate, folic acid regimen. 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 5 CAD, nonobstructive with history of IL: We will continue aspirin, statin, amlodipine regimen. Not on any beta-yovani or SAVAGE inhibitor/ARB. 6. History TIA: We will continue aspirin, statin, hypertensive regimen as noted. 7. Hypertension: We will continue patient home amlodipine, as needed IV hydralazine. 8. Hyperlipidemia: We will continue patient statin therapy. 9. Chronic thrombocytopenia: Patient admission platelets normal range, 361, lowest previously noted 184, suspect remotely likely associate with chronic alcohol abuse. 10. Chronic asthma: Not on any routine inhalers, will have as needed albuterol if necessary. 11. GERD: We will maintain on home PPI. 12. Anxiety and depression: We will continue patient home Zoloft. 13. DVT prophylaxis: SCDs, Lovenox. Charges/Coding Visit Charges Inpatient E&M: 26472 Init Hosp L3
--- NOTE | 2021-06-05 17:45 | NURSING ---
MED SURG WHITE PANCREATITIS
[2021-06-05 18:30] LABS: Phosphorus 2.7 mg/dL (2.5-4.9)
[2021-06-05 18:36] LABS: Reflex Lactate? Y
[2021-06-05 19:01] LABS: Procalcitonin < 0.04 ng/mL (0.00-0.09)
[2021-06-05] MEDS: 0.9% Normal Saline 1,000 ML 999 ML IV (19:06)
[2021-06-05 19:08] VITALS: BP 126/87; PULSE 80; RESP 18; TEMP 36.9; O2SAT 92
[2021-06-05 19:50] VITALS: BMI 20.2
[2021-06-05 19:52] LABS: Amphetamine Urine VISTA NEGATIVE (<1000 ng/mL); Barbiturate Urine VISTA POSITIVE (< 200 ng/mL); Benzodiazepine Urine VISTA NEGATIVE (< 200 ng/mL); Cocaine Urine VISTA NEGATIVE (< 300 ng/mL); Ecstacy Urine VISTA NEGATIVE (< 500 ng/mL); Methadone Urine VISTA NEGATIVE (< 300 ng/mL); PCP Urine VISTA NEGATIVE (< 25 ng/mL); THC Urine VISTA NEGATIVE (< 50 ng/mL); Vista UDS pH Range 6
[2021-06-05 19:57] LABS: Lactic Acid 2.5 mmol/L (0.4-1.9)
[2021-06-05] MEDS: 0.9% Normal Saline 1,000 ML 150 ML IV (20:16)
[2021-06-05] MEDS: HYDROmorphone 0.5 MG/0.5 ML SYRINGE IV (20:22)
[2021-06-05] MEDS: Pantoprazole Sodium 40 MG Tablet PO (20:35)
[2021-06-05] MEDS: Atorvastatin Calcium 20 MG Tablet PO (20:35)
[2021-06-05 21:05] VITALS: O2SAT 98
[2021-06-05] MEDS: oxyCODONE 5 MG Tablet 10 MG PO (23:35)
[2021-06-05] MEDS: proMETHazine 25 MG/ML Syringe IM (23:39)
[2021-06-06 01:57] VITALS: BP 123/76; PULSE 87; RESP 18; TEMP 37; O2SAT 96
[2021-06-06] MEDS: HYDROmorphone 0.5 MG/0.5 ML SYRINGE IV ×5 (02:02→20:23)
[2021-06-06] MEDS: 0.9% Normal Saline 1,000 ML 150 ML IV ×4 (02:41→20:24)
[2021-06-06] MEDS: Ondansetron 4 MG/2 ML Vial IV ×2 (04:36→20:24)
[2021-06-06] MEDS: oxyCODONE 5 MG Tablet 10 MG PO (04:41)
[2021-06-06] MEDS: hydrOXYzine PAM 25 MG Capsule 50 MG PO (05:59)
[2021-06-06 06:27] LABS: Absolute Lymphocyte Count 1.15 X10^3/uL (0.83-4.51); Absolute Neutrophil Count 9.5 X10^3/uL (2.0-7.7); Basophil# 0.07 X10^3/uL; Basophil% 0.6 % (0-1); Eosinophil# 0.01 X10^3/uL; Eosinophils% 0.1 % (0-5); Hemoglobin 11.5 g/dL (12.0-15.0); Lymphocyte # 1.15 X10^3/ul (0.83-4.51); Lymphocyte % 9.8 % (19-41); Mean Corp Hgb Conc 31.9 g/dL (32-36); Mean Corpuscular Hgb 29.3 pg (27.0-32.0); Mean Corpuscular Volume 91.6 fL (81-99); Mean Platelet Vol. 10.1 fl (6.2-12.0); Monocyte% 7.7 % (0-10); NRBC Flagged by Analyzer 0 % (0-5); Neutrophil # 9.54 X10^3/uL (2.7-7.7); Neutrophil % 81.5 % (47-70); Platelet Count 319 K/mm3 (150-450); RBC Distribution Width CV 18.7 % (11.6-14.6); Red Blood Count 3.93 M/mm3 (4.2-5.4); White Blood Count 11.7 K/mm3 (4.4-11.0)
[2021-06-06 07:01] LABS: ALB/GLOB Ratio 0.8 RATIO (0.9-2.4); AST(SGOT) 99 U/L (15-37); Alanine Aminotransfer ALT/SGPT 54 U/L (13-56); Albumin, Serum 2.4 g/dL (3.2-5.0); Alkaline Phosphatase 95 U/L (45-117); Anion Gap 10 (5-15); BUN 5 mg/dL (7-18); BUN/Creat Ratio 8.2 RATIO (10-20); Chloride 109 mmol/L (98-107); Creatinine, Serum 0.61 mg/dL (0.55-1.02); EST Glomerular Filtration Rate 111 mL/min (>60); Est Glom Filt Rate - Afr Amer 134 mL/min (>60); Estimated Creatinine Clearance 106.73 ml/min; Globulin 3.1 g/dL (2.2-4.2); Glucose 101 mg/dL (74-106); Lipase 2049 U/L (73-393); Potassium 3.4 mmol/L (3.5-5.1); Protein, Total 5.5 g/dL (6.4-8.2); Sodium Level 142 mmol/L (136-145)
--- NOTE | 2021-06-06 09:25 | CASEMGMT ---
ALEXANDRU MILES Assessment: Face to Face with pt for initial transition planning/care coordination assessment. ALEXANDRU MILES introduced self and role at [facility], pt voices understanding and consents to assessment. Pt is A/O x4 and answers all questions appropriately at this time. Pt sitting up in bed in no distress. Care providers, pharmacy, and demographics verified/updated. Admitting Dx: acute pancreatitis, colitis PCP:Rudy Specialists: Pt states she follows with a rivet driver and blocking machine tender at [facility] but does not know the names. Preferred Pharmacy: [facility] Insurance: [employer] Prescription Benefit: yes LW/HPOA: Pt states she has a LW/DPOA. Her DPOA is her mother Janay aFulkner. Pt is aware that it is not on file at [facility] and she can bring in at any time to be scanned in to the chart. LNOK: Janay Faulkner, mother Living Arrangements: Pt lives alone in a ground level apt with no steps to enter. Pt reports she is I in ADL's and denies concerns at home. Transportation: Pt drives self and denies concerns with transportation. DME/HHC/SNF: Pt has crutches and a trf bench for the shower as she broke her ankle. She was supposed to have surgery for her ankle on the but this will now be delayed. Pt has had [facility] in the past and has been at [facility] ([facility] Pt states she has been in [facility] for alcohol w/d recently and she is now cutting back. She reports she is drinking a couple large cans of Moises's Hard Lemonade in the evenings. Pt denies smoking cigarettes, street drugs or illegal drugs. Pt follows at [facility] with [facility]. Pt states no concerns with going home at time of dc. Pt states no further concerns/needs. CM to follow. Advised pt to ask CM if any further question/concerns/needs arise, voices understanding. Pt Goal: Home Plan: Home
[2021-06-06 09:42] VITALS: BP 136/97; PULSE 98; RESP 16; TEMP 37; O2SAT 96
[2021-06-06] MEDS: Potassium Chloride Oral Tablet 20 MEQ 40 MEQ PO (09:43)
[2021-06-06] MEDS: amLODIPine 5 MG Tablet PO (09:44)
[2021-06-06] MEDS: Multivitamins,Ther W-Minerals Tablet 1 TABLET PO (09:44)
[2021-06-06] MEDS: Hydroxychloroquine 200 MG Tablet PO ×2 (09:44→18:08)
[2021-06-06] MEDS: Folic Acid 1 MG Tablet PO (09:44)
[2021-06-06] MEDS: Sertraline 50 MG Tablet 150 MG PO (09:44)
[2021-06-06] MEDS: Thiamine Hydrochloride 100 MG Tablet PO ×2 (09:44→18:08)
[2021-06-06] MEDS: Pantoprazole Sodium 40 MG Tablet PO ×2 (09:44→20:24)
[2021-06-06] MEDS: Methotrexate 2.5 MG Tablet 15 MG PO (09:45)
[2021-06-06] MEDS: Enoxaparin 40 MG/0.4 ML Syringe SC (09:45)
--- NOTE | 2021-06-06 09:55 | PCM.PN.HOSP ---
Documented by User: Nivia Rodriguez NP, FREIGHT FORWARDER-C 06/06/21 10:13 Subjective Subjective Patient seen and examined. Reports intractable abdominal pain, episode of nausea with emesis this morning. She states her abdomen feels swollen. Denies further diarrhea. States her abdominal pain is worse than when she had her kids. Objective Data Objective Data Vital Signs: Vital Signs Temp Pulse Resp BP Pulse Ox 98.6 F 98 16 136/97 H 96 06/06/21 09:42 06/06/21 09:42 06/06/21 09:42 06/06/21 09:42 06/06/21 09:42 Oxygen Delivery Method Room Air Weight: 133 lb 9.602 oz Body Mass Index (BMI) 20.2 Intake & Output: Intake and Output for Last 24 Hours 06/04/21 06/05/21 06/06/21 23:59 23:59 23:59 Intake Total 2034.5 / 1961.5 Balance 2034.5 / 1961. Lab / Micro Data Result Diagrams: 06/06/21 05:40 06/06/21 05:40 Labs: Laboratory Results - last 24 hr 06/05/21 14:30: WBC 6.6, RBC 4.27, Hgb 12.5, Hct 37.9, MCV 88.8, MCH 29.3, MCHC 33.0, RDW Std Deviation 61.0 H, RDW Coeff of Leeann 18.6 H, Plt Count 361, MPV 9.5, Immature Gran % (Auto) 0.300, Neut % (Auto) 58.9, Lymph % (Auto) 28.7, [place] % (Auto) 10.1 H, Eos % (Auto) 0.5, Baso % (Auto) 1.5 H, Absolute Neuts (auto) 3.9, Absolute Lymphs (auto) 1.90, Nucleated RBC % 0 06/05/21 14:30: Sodium 140, Potassium 3.9, Chloride 105, Carbon Dioxide 31.0, Anion Gap 4 L, BUN 5 L, Creatinine 0.64, Estim Creat Clear Calc 98.98, Est GFR (MDRD) Af Amer 127, Est GFR (MDRD) Non-Af 105, BUN/Creatinine Ratio 7.8 L, Glucose 112 H, Calcium 7.9 L, Total Bilirubin 0.30, AST 93 H, ALT 56, Alkaline Phosphatase 89, Total Protein 6.7, Albumin 2.9 L, Globulin 3.8, Albumin/Globulin Ratio 0.8 L, Lipase 261 06/05/21 14:30: Ethyl Alcohol 294.0 06/05/21 14:30: Lactic Acid 2.9 H* 06/05/21 14:30: Phosphorus 2.7, Magnesium 2.0 06/05/21 14:30: Procalcitonin < 0.04 06/05/21 15:32: Urine Color Yellow, Urine Clarity Sl. Cloudy, Urine pH 7.0, Ur Specific [place] 1.005, Urine Protein Negative, Urine Glucose (UA) Normal, Urine Ketones Negative, Urine Occult Blood 25 H, Urine Nitrite Negative, Urine Bilirubin Negative, Urine Urobilinogen Normal, Ur Leukocyte Esterase 25 H, Urine RBC 0 SEEN, Urine WBC 0-5 SEEN, Ur Squamous Epith Cells 0-5 SEEN, Urine Bacteria 0 SEEN, Urine Mucus 0 SEEN 06/05/21 15:32: Urine Opiates Screen POSITIVE H, Urine Methadone Screen NEGATIVE, Ur Barbiturates Screen POSITIVE H, Ur Phencyclidine Scrn NEGATIVE, Ur Amphetamines Screen NEGATIVE, U Methamphetamin-MDMA NEGATIVE, U Benzodiazepines Scrn NEGATIVE, Urine Cocaine Screen NEGATIVE, U Cannabinoids Screen NEGATIVE, Ur Drug Screen Comment 06/05/21 19:10: Lactic Acid 2.5 H* 06/06/21 05:40: WBC 11.7 H, RBC 3.93 L, Hgb 11.5 L, Hct 36.0 L, MCV 91.6, MCH 29.3, MCHC 31.9 L, RDW Std Deviation 64.0 H, RDW Coeff of Leeann 18.7 H, Plt Count 319, MPV 10.1, Immature Gran % (Auto) 0.300, Neut % (Auto) 81.5 H, Lymph % (Auto) 9.8 L, [place] % (Auto) 7.7, Eos % (Auto) 0.1, Baso % (Auto) 0.6, Absolute Neuts (auto) 9.5 H, Absolute Lymphs (auto) 1.15, Nucleated RBC % 0 06/06/21 05:40: Sodium 142, Potassium 3.4 L, Chloride 109 H, Carbon Dioxide 23.0, Anion Gap 10, BUN 5 L, Creatinine 0.61, Estim Creat Clear Calc 106.73, Est GFR (MDRD) Af Amer 134, Est GFR (MDRD) Non-Af 111, BUN/Creatinine Ratio 8.2 L, Glucose 101, Calcium 7.0 L, Total Bilirubin 0.30, AST 99 H, ALT 54, Alkaline Phosphatase 95, Total Protein 5.5 L, Albumin 2.4 L, Globulin 3.1, Albumin/Globulin Ratio 0.8 L, Lipase 2049 H Micro: Microbiology 06/05/21 17:50 Nasal Secretion SARS-CoV-2 Antigen (Rapid) - Final Radiography Diagnostic Testing: Radiology Impression Abdomen/Pelvis CT 06/05/21 16:25 IMPRESSION: Diffuse submucosal thickening in the majority of the colon suggests a diffuse colitis, this is likely infectious or inflammatory. No perforation or abscess is noted Boggy appearance to the head of the pancreas with associated induration of the peripancreatic fat and fluid with thickening of the duodenum and hepatic flexure suggesting acute pancreatitis. The pancreatic mid body and tail are free of inflammatory changes Fatty liver Changes consistent with previous cholecystectomy Degenerative bony changes Electronically Signed: Hilario Yip MD at 16:58 EDT , Service support , Physical Exam Const alert, oriented x3 and no apparent distress Orientation / Consciousness: awake, oriented to person, oriented to place and oriented to time HEENT normocephalic and moist oral mucous membranes Eyes PERRL, EOMs intact bilaterally and conjunctivae normal Neck no lymphadenopathy Resp normal respiratory effort and clear to auscultation bilaterally Cardio regular rate, regular rhythm and no murmurs Peripheral Pulses: pulses 2+ throughout GI normal to inspection, nondistended, normoactive bowel sounds and non-distended Palpation: tender other (Upper quadrants) Extremity normal to inspection Skin no rashes or lesions noted Lesions: no lesions Rashes: no rashes Trauma: no lacerations or abrasions Neuro CN's II-XII intact bilaterally, no focal motor deficits, no sensory deficits noted and deep tendon reflexes 2+ bilaterally Psych mental status grossly normal Mood & Affect: anxious Assessment & Plan Assessment/Plan (1) Acute pancreatitis: PLAN: 1. Acute recurrent pancreatitis, related to chronic alcohol abuse-CT of abdomen and pelvis on admission demonstrates diffuse submucosal thickening in the majority of the colon, suggestive of diffuse colitis, infectious versus inflammatory. Acute pancreatitis. Patient denies further diarrhea. If patient has recurrent diarrhea, will send stool for C. difficile/enteric bacteriology. IV fluids. NPO. As needed pain regimen. 2. Lactic acidosis-secondary to #1. Trended down. No evidence of infection. 3. Alcohol intoxication, chronic alcohol abuse-alcohol level 294 on admission. CIWA/ativan protocol. Denies active withdrawal symptoms however will need close monitoring for impending withdrawal. 5th admission this year related to alcohol abuse/alcohol related complications. Case management consult. Thiamine, folic acid, multivitamin supplementation. 4. Lupus with nephritis/vasculitis-on hydroxychloroquine, methotrexate. 5. CAD-aspirin, statin. 6. CVA/TIA-aspirin, statin. 7. Hypertension-stable, continue amlodipine. 8. Anxiety/depression-on sertraline. 9. GERD-on PPI. DVT prophylaxis-Lovenox This patient was seen by Nivia Rodriguez NP under the supervision of Dr. Radford. Documented by User: Dr. Debby Radford MD 06/06/21 16:42 Objective Data Lab / Micro Data Result Diagrams: 06/06/21 05:40 06/06/21 05:40 Charges/Coding Addendum Addendum: Patient seen by Nivia Rodriguez NP-C under my supervision Patient seen and summoned. She complains of intractable pain in her upper abdomen due to the pancreatitis and states the pain radiates to her back. Patient was quite jittery during my review. REview of systems otherwise negative. Potassium today is 3.4. O/E: alert, oriented x3 and no apparent distress, anxious Orientation / Consciousness: awake, oriented to person, oriented to place and oriented to time HEENT normocephalic and moist oral mucous membranes Eyes PERRL, EOMs intact bilaterally and conjunctivae normal Neck no lymphadenopathy Resp normal respiratory effort and clear to auscultation bilaterally Cardio regular rate, regular rhythm and no murmurs Peripheral Pulses: pulses 2+ throughout GI normal to inspection, moderate epigastric tenderness, no guarding or rebound tenderness. Extremity normal to inspection Skin no rashes or lesions noted Lesions: no lesions Rashes: no rashes Trauma: no lacerations or abrasions Neuro CN's II-XII intact bilaterally, no focal motor deficits, no sensory deficits noted and deep tendon reflexes 2+ bilaterally Psych mental status grossly normal Mood & Affect: anxious CT of the abdomen and pelvis showed diffuse submucosal thickening in the majority of the colon suggestive of diffuse colitis as well as evidence of acute pancreatitis. Patient has had any more diarrhea since she was admitted. Currently n.p.o. Continue IV pain medication. Continue hydration with IV fluid. On CIWA protocol. Monitor CIWA score. On thiamine, folic acid and Multivite's. Continue hydroxychloroquine and methotrexate for SLE. Replace potassium. On Lovenox for DVT prophylaxis. REst as per Nivia Rodriguez FREIGHT FORWARDER-C's note, which I have reviewed and endorsed. Visit Charges Inpatient E&M: 60702 Subs Hosp L3
[2021-06-06] MEDS: proMETHazine 25 MG/ML Syringe IM (10:02)
[2021-06-06] MEDS: 0.9% Saline Lock 10 ML Syringe IV ×2 (10:06→20:23)
--- NOTE | 2021-06-06 14:08 | CASEMGMT ---
SW Note Referral Source: CM Referral Reason: History of detox. SW was advised patient has history of detox. Patient is currently linked with [facility] counselor. SW spoke to RN. RN advised that patient has no needs except reports pain and desire for pain medication. No further SW needs at this time. Plan: To be determined. Bebe LINO
--- NOTE | 2021-06-06 14:46 | CASEMGMT ---
TIMOTHY Note SW called patient's room and spoke to patient. She indicated she is in the hospital due to pancreatitis and diverticulitis. [facility] Patient said that she is in pain but I will get through it. Patient reports no needs or concerns at this time. SW advised that this gag writer remains available. NO further SW needs at this time. Plan: Home at discharge Bebe LINO
[2021-06-06 15:14] VITALS: BP 118/83; PULSE 107; RESP 16; TEMP 36.7; O2SAT 96
[2021-06-06] MEDS: Atorvastatin Calcium 20 MG Tablet PO (20:24)
[2021-06-06] MEDS: Dicyclomine 10 MG Capsule 20 MG PO (20:24)
[2021-06-06 20:28] VITALS: BP 129/75; PULSE 108; RESP 16; TEMP 36.8; O2SAT 97
[2021-06-07] MEDS: 0.9% Saline Lock 10 ML Syringe IV ×4 (03:03→20:29)
[2021-06-07] MEDS: 0.9% Normal Saline 1,000 ML 150 ML IV ×3 (03:03→17:03)
[2021-06-07] MEDS: Acetaminophen 325 MG Tablet 650 MG PO ×3 (03:04→14:48)
[2021-06-07] MEDS: HYDROmorphone 0.5 MG/0.5 ML SYRINGE IV ×4 (03:04→20:29)
[2021-06-07] MEDS: Dicyclomine 10 MG Capsule 20 MG PO ×2 (03:08→14:48)
[2021-06-07 03:12] VITALS: BP 115/89; PULSE 106; RESP 16; TEMP 37.3; O2SAT 98
[2021-06-07 06:57] LABS: Absolute Lymphocyte Count 1.08 X10^3/uL (0.83-4.51); Absolute Neutrophil Count 10.7 X10^3/uL (2.0-7.7); Basophil# 0.06 X10^3/uL; Basophil% 0.5 % (0-1); Eosinophil# 0.19 X10^3/uL; Eosinophils% 1.5 % (0-5); Hematocrit 33.4 % (37-47); Hemoglobin 10.5 g/dL (12.0-15.0); Lymphocyte # 1.08 X10^3/ul (0.83-4.51); Lymphocyte % 8.7 % (19-41); Mean Corp Hgb Conc 31.4 g/dL (32-36); Mean Corpuscular Hgb 28.9 pg (27.0-32.0); Mean Platelet Vol. 10.6 fl (6.2-12.0); Monocyte# 0.39 X10^3/uL; Monocyte% 3.1 % (0-10); NRBC Flagged by Analyzer 0 % (0-5); Neutrophil % 85.7 % (47-70); Platelet Count 270 K/mm3 (150-450); RBC Distribution Width CV 18.4 % (11.6-14.6); RBC Distribution Width SD 62.2 fl (35.1-43.9); Red Blood Count 3.63 M/mm3 (4.2-5.4); White Blood Count 12.5 K/mm3 (4.4-11.0)
[2021-06-07 07:14] LABS: Anion Gap 6 (5-15); BUN 3 mg/dL (7-18); BUN/Creat Ratio 5.6 RATIO (10-20); Calcium,Total 7.1 mg/dL (8.5-10.1); Chloride 107 mmol/L (98-107); Creatinine, Serum 0.53 mg/dL (0.55-1.02); EST Glomerular Filtration Rate 130 mL/min (>60); Est Glom Filt Rate - Afr Amer 157 mL/min (>60); Estimated Creatinine Clearance 123.85 ml/min; Glucose 73 mg/dL (74-106); Potassium 3.7 mmol/L (3.5-5.1); Sodium Level 139 mmol/L (136-145)
[2021-06-07 07:43] VITALS: O2SAT 97
[2021-06-07 08:14] VITALS: BP 122/86; PULSE 112; RESP 16; TEMP 37.5; O2SAT 95
--- NOTE | 2021-06-07 08:14 | PCS.PANDOC ---
PANDEMIC DOCUMENTATION INITIATED: Date: 05/11/2021 Time: 189906/05/21 1829
[2021-06-07 08:15] VITALS: PULSE 104
[2021-06-07] MEDS: Thiamine Hydrochloride 100 MG Tablet PO ×2 (08:34→17:05)
[2021-06-07] MEDS: Hydroxychloroquine 200 MG Tablet PO ×2 (08:34→17:05)
[2021-06-07] MEDS: Folic Acid 1 MG Tablet PO (08:35)
[2021-06-07] MEDS: Multivitamins,Ther W-Minerals Tablet 1 TABLET PO (08:35)
--- NOTE | 2021-06-07 10:00 | PCM.PN.HOSP ---
Documented by User: Nivia Rodriguez NP, ADMINISTRATIVE RESIDENT-C 06/07/21 10:04 Subjective Subjective Patient seen and examined. Reports improvement in abdominal pain. Reports nausea, vomiting following liquids. Denies active withdrawal symptoms. Objective Data Objective Data Vital Signs: Vital Signs Temp Pulse Resp BP Pulse Ox 99.5 F H 112 H 16 122/86 H 95 06/07/21 08:14 06/07/21 08:14 06/07/21 08:14 06/07/21 08:14 06/07/21 08:14 Oxygen Delivery Method Room Air Weight: 134 lb 11.239 oz Body Mass Index (BMI) 20.2 Intake & Output: Intake and Output for Last 24 Hours 06/05/21 06/06/21 06/07/21 23:59 23:59 23:59 Intake Total 2034 3890.0 / 3890.0 997.5 / 997.5 Balance 2034 3890.0 / 3890.0 997.5 / 997.5 Lab / Micro Data Result Diagrams: 06/07/21 05:35 06/07/21 05:35 Labs: Laboratory Results - last 24 hr 06/07/21 05:35: WBC 12.5 H, RBC 3.63 L, Hgb 10.5 L, Hct 33.4 L, MCV 92.0, MCH 28.9, MCHC 31.4 L, RDW Std Deviation 62.2 H, RDW Coeff of Leeann 18.4 H, Plt Count 270, MPV 10.6, Immature Gran % (Auto) 0.500, Neut % (Auto) 85.7 H, Lymph % (Auto) 8.7 L, Coffee % (Auto) 3.1, Eos % (Auto) 1.5, Baso % (Auto) 0.5, Absolute Neuts (auto) 10.7 H, Absolute Lymphs (auto) 1.08, Nucleated RBC % 0 06/07/21 05:35: Sodium 139, Potassium 3.7, Chloride 107, Carbon Dioxide 26.0, Anion Gap 6, BUN 3 L, Creatinine 0.53 L, Estim Creat Clear Calc 123.85, Est GFR (MDRD) Af Amer 157, Est GFR (MDRD) Non-Af 130, BUN/Creatinine Ratio 5.6 L, Glucose 73 L, Calcium 7.1 L Micro: Microbiology 09/11/21 15:20 Stool C. difficile DNA Amplification - Final 06/05/21 17:50 Nasal Secretion SARS-CoV-2 Antigen (Rapid) - Final Physical Exam Const alert, oriented x3 and no apparent distress Constitutional Narrative: Upper extremity tremors noted. Orientation / Consciousness: awake, oriented to person, oriented to place and oriented to time HEENT normocephalic and moist oral mucous membranes Eyes PERRL, EOMs intact bilaterally and conjunctivae normal Neck no lymphadenopathy Resp normal respiratory effort and clear to auscultation bilaterally Cardio regular rate, regular rhythm and no murmurs Peripheral Pulses: pulses 2+ throughout GI normal to inspection, nondistended, normoactive bowel sounds and non-distended Palpation: tender other (generalized) Extremity normal to inspection Skin no rashes or lesions noted Lesions: no lesions Rashes: no rashes Trauma: no lacerations or abrasions Neuro CN's II-XII intact bilaterally, no focal motor deficits, no sensory deficits noted and deep tendon reflexes 2+ bilaterally Psych mental status grossly normal and affect normal Assessment & Plan Assessment/Plan (1) Acute pancreatitis: PLAN: 1. Acute recurrent pancreatitis, related to chronic alcohol abuse-CT of abdomen and pelvis on admission demonstrates diffuse submucosal thickening in the majority of the colon, suggestive of diffuse colitis, infectious versus inflammatory. Acute pancreatitis. Patient denies further diarrhea. If patient has recurrent diarrhea, will send stool for C. difficile/enteric bacteriology. IV fluids. Clear liquid diet, resume n.p.o. if recurrent nausea/vomiting. As needed pain regimen. Patient reports mild improvement in abdominal pain compared to prior. 2. Lactic acidosis-secondary to #1. Trended down. No evidence of infection. 3. Alcohol intoxication, chronic alcohol abuse-alcohol level 294 on admission. CIWA/ativan protocol. Denies active withdrawal symptoms however will need close monitoring for impending withdrawal. 5th admission this year related to alcohol abuse/alcohol related complications. Case management consult. Thiamine, folic acid, multivitamin supplementation. 4. Lupus with nephritis/vasculitis-on hydroxychloroquine, methotrexate. 5. CAD-aspirin, statin. 6. CVA/TIA-aspirin, statin. 7. Hypertension-stable, continue amlodipine. 8. Anxiety/depression-on sertraline. 9. GERD-on PPI. DVT prophylaxis-Lovenox This patient was seen by Nivia Rodriguez NP under the supervision of Dr. Radford. Documented by User: Dr. Debby Radford MD 06/07/21 17:27 Objective Data Lab / Micro Data Result Diagrams: 06/07/21 05:35 06/07/21 05:35 Charges/Coding Addendum Addendum: Patient seen by Nivia Rodriguez NP-C under my supervision. Patient seen and examined. She still complains of abdominal pain and states pain is now well controlled. However she is willing to try chicken broth today as she is think she would be able to tolerate it. Review of systems otherwise negative. She does have fever today with temperature of 100.6 Fahrenheit, and pulse rate is 107. WBC has trended up slightly to 12.5. O/E: Const alert, oriented x3 and no apparent distress Orientation / Consciousness: awake, oriented to person, oriented to place and oriented to time HEENT normocephalic and moist oral mucous membranes Eyes PERRL, EOMs intact bilaterally and conjunctivae normal Neck no lymphadenopathy Resp normal respiratory effort and clear to auscultation bilaterally Cardio regular rate, regular rhythm and no murmurs Peripheral Pulses: pulses 2+ throughout GI normal to inspection, nondistended, normoactive bowel sounds and non-distended Palpation: mild tenderness in epigastrum, no guarding or rebound tenderness. Extremity normal to inspection Skin no rashes or lesions noted Lesions: no lesions Rashes: no rashes Trauma: no lacerations or abrasions Neuro CN's II-XII intact bilaterally, no focal motor deficits, no sensory deficits noted and deep tendon reflexes 2+ bilaterally Psych mental status grossly normal Mood & Affect: anxious We will advance to full liquids as patient wants to try chicken broth and think should be well tolerated. Abdominal pain is improving. She does have a fever and elevated heart rate and meets SIRS criteria. However this can also be due to acute pancreatitis. WBC has also trended up slightly. This could all be explained by her acute pancreatitis so we will hold off on any antibiotics for now. If white cell count trends upwards and SIRS criteria persists, will consider repeat imaging to check to see if she is developing a necrotizing pancreatitis. Her diarrhea has resolved since admission. Continue IV pain medication. Continue CIWA protocol. On thiamine, folic acid and Multivite's. PT OT on board. Fall precautions. Continue Lovenox for DVT prophylaxis. Rest as per BILLY Bruno's notes which I have reviewed and endorsed. Visit Charges Inpatient E&M: 13553 Subs Hosp L3
[2021-06-07] MEDS: Sertraline 50 MG Tablet 150 MG PO (10:26)
[2021-06-07] MEDS: Pantoprazole Sodium 40 MG Tablet PO ×2 (10:26→21:12)
[2021-06-07] MEDS: amLODIPine 5 MG Tablet PO (10:27)
[2021-06-07 14:39] VITALS: BP 129/83; PULSE 107; RESP 18; TEMP 38.1; O2SAT 96
[2021-06-07] MEDS: Ondansetron 4 MG/2 ML Vial IV (20:28)
[2021-06-07 20:45] VITALS: BP 122/83; PULSE 99; RESP 18; TEMP 38.1; O2SAT 97
[2021-06-07] MEDS: Atorvastatin Calcium 20 MG Tablet PO (21:12)
[2021-06-07] MEDS: hydrOXYzine PAM 25 MG Capsule 50 MG PO (21:16)
[2021-06-08] VITALS (7 sets, daily range): BP systolic 107–133; BP diastolic 65–83; PULSE 97–112; RESP 18; TEMP 37.3–38.5; O2SAT 92–98
[2021-06-08] MEDS: 0.9% Normal Saline 1,000 ML 150 ML IV ×2 (02:50→09:33)
[2021-06-08] MEDS: 0.9% Saline Lock 10 ML Syringe IV ×4 (02:54→14:12)
[2021-06-08] MEDS: HYDROmorphone 0.5 MG/0.5 ML SYRINGE IV ×4 (02:54→19:49)
[2021-06-08] MEDS: Dicyclomine 10 MG Capsule 20 MG PO ×2 (02:54→17:56)
[2021-06-08] MEDS: Acetaminophen 325 MG Tablet 650 MG PO ×3 (02:55→19:48)
[2021-06-08] MEDS: Thiamine Hydrochloride 100 MG Tablet PO ×2 (07:58→17:56)
[2021-06-08] MEDS: Hydroxychloroquine 200 MG Tablet PO ×2 (07:58→17:56)
[2021-06-08] MEDS: Multivitamins,Ther W-Minerals Tablet 1 TABLET PO (07:59)
[2021-06-08] MEDS: Folic Acid 1 MG Tablet PO (07:59)
[2021-06-08] MEDS: Sertraline 50 MG Tablet 150 MG PO (09:35)
[2021-06-08] MEDS: amLODIPine 5 MG Tablet PO (09:35)
[2021-06-08] MEDS: Pantoprazole Sodium 40 MG Tablet PO ×2 (09:35→19:49)
[2021-06-08] MEDS: Ondansetron 4 MG/2 ML Vial IV (09:38)
[2021-06-08] MEDS: Gabapentin 300 MG Capsule PO (11:57)
--- NOTE | 2021-06-08 13:02 | CASEMGMT ---
Pt screened with [facility] Palliative Care Screening Tool due to strata 4, pt met criteria. No order received at this time.
--- NOTE | 2021-06-08 14:50 | PCM.PN.HOSP ---
Documented by User: Nivia Rodriguez NP, FINANCE ASSISTANT-C 06/08/21 14:57 Subjective Subjective Patient seen and examined. Reports improvement in abdominal pain. Denies fever, chills. Tolerating liquid diet, diet advanced. Reports continued intermittent diarrhea. Denies further nausea, vomiting Objective Data Objective Data Vital Signs: Vital Signs Temp Pulse Resp BP Pulse Ox 100.7 F H 100 18 115/72 96 06/08/21 14:06 06/08/21 14:06 06/08/21 14:06 06/08/21 14:06 06/08/21 14:06 Oxygen Delivery Method Room Air Weight: 135 lb 9.349 oz Body Mass Index (BMI) 20.2 Intake & Output: Intake and Output for Last 24 Hours 06/06/21 06/07/21 06/08/21 23:59 23:59 23:59 Intake Total 3890.0 / 3890.0 4292.5 / 4292.5 1512 / 1512 Balance 3890.0 / 3890.0 4292.5 / 4292.5 1512 / 1512 Lab / Micro Data Result Diagrams: 06/07/21 05:35 06/07/21 05:35 Labs: Laboratory Results - last 24 hr 06/08/21 03:55: COVID-19 (NEETU) Not Detected Micro: Microbiology 06/06/21 15:20 Stool Enteric Bacteriology - Final 06/06/21 15:20 Stool C. difficile DNA Amplification - Final 06/05/21 17:50 Nasal Secretion SARS-CoV-2 Antigen (Rapid) - Final Physical Exam Const alert, oriented x3 and no apparent distress Orientation / Consciousness: awake, oriented to person, oriented to place and oriented to time HEENT normocephalic and moist oral mucous membranes Eyes PERRL, EOMs intact bilaterally and conjunctivae normal Neck no lymphadenopathy Resp normal respiratory effort and clear to auscultation bilaterally Cardio regular rate, regular rhythm and no murmurs Peripheral Pulses: pulses 2+ throughout GI normal to inspection, nondistended, normoactive bowel sounds, non-tender and non-distended Extremity normal to inspection Skin no rashes or lesions noted Lesions: no lesions Rashes: no rashes Trauma: no lacerations or abrasions Neuro CN's II-XII intact bilaterally, no focal motor deficits, no sensory deficits noted and deep tendon reflexes 2+ bilaterally Psych mental status grossly normal and affect normal Assessment & Plan Assessment/Plan (1) Acute pancreatitis: (2) Colitis: PLAN: 1. Acute recurrent pancreatitis, related to chronic alcohol abuse-CT of abdomen and pelvis on admission demonstrates diffuse submucosal thickening in the majority of the colon, suggestive of diffuse colitis, infectious versus inflammatory. Acute pancreatitis. Advance diet as tolerated. Abdominal pain improved. 2. Acute colitis with SIRS-lactic acidosis/leukocytosis initially suspected secondary to acute pancreatitis however now with increasing white count, fever, tachycardia with ongoing diarrhea. Given CT findings of diffuse colitis initiated on IV Unasyn. Stool negative for C. difficile and enteric bacteriology. 3. Alcohol intoxication, chronic alcohol abuse-alcohol level 294 on admission. CIWA/ativan protocol. Denies active withdrawal symptoms however will need close monitoring for impending withdrawal. 5th admission this year related to alcohol abuse/alcohol related complications. Case management consult. Thiamine, folic acid, multivitamin supplementation. 4. Lupus with nephritis/vasculitis-on hydroxychloroquine, methotrexate. 5. CAD-aspirin, statin. 6. CVA/TIA-aspirin, statin. 7. Hypertension-stable, continue amlodipine. 8. Anxiety/depression-on sertraline. 9. GERD-on PPI. DVT prophylaxis-Lovenox This patient was seen by Nivia Rodriguez NP under the supervision of Dr. Mac. Documented by User: Dr. Darnell Mac, 06/08/21 16:48 Subjective Subjective still with abdominal pain, but improving. + Diarrhea. Objective Data Lab / Micro Data Result Diagrams: 06/07/21 05:35 06/07/21 05:35 Physical Exam Const alert Resp normal respiratory effort, no retractions, no use of accessory muscles and clear to auscultation bilaterally Cardio regular rate, regular rhythm, S1 normal heart sound and S2 normal heart sound GI normal to inspection, nondistended, normoactive bowel sounds, soft to palpation and non-distended GI Narrative: diffusely tender to palpation. Assessment & Plan Assessment/Plan (1) Acute pancreatitis: (2) Colitis: PLAN: Patient seen and examined independently. Data and vitals reviewed. I agree with the above note by the nurse practitioner. 1. Acute pancreatitis: Secondary to alcohol. Patient states that she is not a daily drinker is only had alcohol couple times most recently. Advised not to drink any further. 2. Acute colitis: qSOFA score of 0 therefore sepsis not present. Patient still with diarrhea. I do not feel that this is just directly related with the pancreatitis being that is more diffuse. Will start the patient on ampicillin/sulbactam and observe. Could be infectious versus ischemic. Will observe the patient for the time being and patient doing better could likely discharge next day or 2. Patient will need outpatient colonoscopy. She states that she has had colonoscopy relatively recently. 3. Alcohol abuse: Patient does not endorse daily drinking. Patient, at this point time, commits to being sober given the likelihood that this about pancreatitis was related to her alcohol consumption. Charges/Coding Visit Charges Inpatient E&M: 94375 Subs Hosp L2
[2021-06-08] MEDS: Atorvastatin Calcium 20 MG Tablet PO (19:49)
[2021-06-08] MEDS: proMETHazine 25 MG/ML Syringe IM (22:58)
[2021-06-08] MEDS: oxyCODONE 5 MG Tablet 10 MG PO (22:58)
[2021-06-09 02:50] VITALS: BP 120/74; PULSE 98; RESP 18; TEMP 37.6; O2SAT 92
[2021-06-09] MEDS: HYDROmorphone 0.5 MG/0.5 ML SYRINGE IV ×4 (02:55→19:58)
[2021-06-09] MEDS: oxyCODONE 5 MG Tablet 10 MG PO ×3 (06:08→23:36)
[2021-06-09] MEDS: proMETHazine 25 MG/ML Syringe IM ×2 (06:19→14:56)
[2021-06-09 06:21] LABS: Absolute Lymphocyte Count 1.17 X10^3/uL (0.83-4.51); Absolute Neutrophil Count 8.2 X10^3/uL (2.0-7.7); Basophil# 0.05 X10^3/uL; Basophil% 0.5 % (0-1); Eosinophil# 0.23 X10^3/uL; Eosinophils% 2.3 % (0-5); Hemoglobin 8.9 g/dL (12.0-15.0); Lymphocyte # 1.17 X10^3/ul (0.83-4.51); Lymphocyte % 11.7 % (19-41); Mean Corpuscular Volume 90.9 fL (81-99); NRBC Flagged by Analyzer 0 % (0-5); Neutrophil # 8.22 X10^3/uL (2.7-7.7); Neutrophil % 82.2 % (47-70); Platelet Count 254 K/mm3 (150-450); RBC Distribution Width CV 18.1 % (11.6-14.6); RBC Distribution Width SD 60.2 fl (35.1-43.9); Red Blood Count 2.97 M/mm3 (4.2-5.4)
[2021-06-09 06:58] LABS: Anion Gap 6 (5-15); BUN 2 mg/dL (7-18); BUN/Creat Ratio 6.3 RATIO (10-20); Calcium,Total 7.7 mg/dL (8.5-10.1); Chloride 104 mmol/L (98-107); Creatinine, Serum 0.32 mg/dL (0.55-1.02); EST Glomerular Filtration Rate 236 mL/min (>60); Est Glom Filt Rate - Afr Amer 285 mL/min (>60); Estimated Creatinine Clearance 214.53 ml/min; Glucose 73 mg/dL (74-106); Potassium 2.7 mmol/L (3.5-5.1); Sodium Level 138 mmol/L (136-145)
[2021-06-09 07:44] VITALS: O2SAT 91
[2021-06-09 08:46] VITALS: BP 105/74; PULSE 107; RESP 16; TEMP 37.6; O2SAT 93
[2021-06-09] MEDS: Sertraline 50 MG Tablet 150 MG PO (09:17)
[2021-06-09] MEDS: Multivitamins,Ther W-Minerals Tablet 1 TABLET PO (09:17)
[2021-06-09] MEDS: hydrOXYzine PAM 25 MG Capsule 50 MG PO (09:17)
[2021-06-09] MEDS: amLODIPine 5 MG Tablet PO (09:18)
[2021-06-09] MEDS: Pantoprazole Sodium 40 MG Tablet PO ×2 (09:18→21:19)
[2021-06-09] MEDS: Hydroxychloroquine 200 MG Tablet PO ×2 (09:18→17:12)
--- NOTE | 2021-06-09 11:33 | PN.HOSP_ITS ---
Documented by User: Nivia Rodriguez AGRICULTURE TECHNICIAN, AGRICULTURE TECHNICIAN-C 06/09/21 11:38 Subjective Subjective Patient seen and examined. Abdominal pain improved. Continues to have fever. Diarrhea resolved. Denies nausea, vomiting. Objective Data Objective Data Vital Signs: Vital Signs Temp Pulse Resp BP Pulse Ox 99.7 F H 107 H 16 105/74 93 06/09/21 08:46 06/09/21 08:46 06/09/21 08:46 06/09/21 08:46 06/09/21 08:46 Oxygen Delivery Method Room Air Weight: 146 lb 13.246 oz Body Mass Index (BMI) 20.2 Intake & Output: Intake and Output for Last 24 Hours 06/07/21 06/08/21 06/09/21 23:59 23:59 23:59 Intake Total 4292.5 / 4292.5 2095 Balance 4292.5 / 4292.5 2095 Lab / Micro Data Result Diagrams: 06/09/21 06:00 06/09/21 06:00 Labs: Laboratory Results - last 24 hr 06/09/21 06:00: WBC 10.0, RBC 2.97 L, Hgb 8.9 L, Hct 27.0 L, MCV 90.9, MCH 30.0, MCHC 33.0 D, RDW Std Deviation 60.2 H, RDW Coeff of Leeann 18.1 H, Plt Count 254, MPV 10.0, Immature Gran % (Auto) 0.300, Neut % (Auto) 82.2 H, Lymph % (Auto) 11.7 L, Carlton % (Auto) 3.0, Eos % (Auto) 2.3, Baso % (Auto) 0.5, Absolute Neuts (auto) 8.2 H, Absolute Lymphs (auto) 1.17, Nucleated RBC % 0 06/09/21 06:00: Sodium 138, Potassium 2.7 L*, Chloride 104, Carbon Dioxide 28.0, Anion Gap 6, BUN 2 L, Creatinine 0.32 L, Estim Creat Clear Calc 214.53, Est GFR (MDRD) Af Amer 285, Est GFR (MDRD) Non-Af 236, BUN/Creatinine Ratio 6.3 L, Glucose 73 L, Calcium 7.7 L Micro: Microbiology 06/06/21 15:20 Stool Enteric Bacteriology - Final 06/06/21 15:20 Stool C. difficile DNA Amplification - Final 06/05/21 17:50 Nasal Secretion SARS-CoV-2 Antigen (Rapid) - Final Physical Exam Const alert, oriented x3 and no apparent distress Orientation / Consciousness: awake, oriented to person, oriented to place and oriented to time HEENT normocephalic and moist oral mucous membranes Eyes PERRL, EOMs intact bilaterally and conjunctivae normal Neck no lymphadenopathy Resp normal respiratory effort and clear to auscultation bilaterally Cardio regular rate, regular rhythm and no murmurs Peripheral Pulses: pulses 2+ throughout GI normal to inspection, nondistended, normoactive bowel sounds, non-tender and non-distended Extremity normal to inspection Skin no rashes or lesions noted Lesions: no lesions Rashes: no rashes Trauma: no lacerations or abrasions Neuro CN's II-XII intact bilaterally, no focal motor deficits, no sensory deficits noted and deep tendon reflexes 2+ bilaterally Psych mental status grossly normal and affect normal Assessment & Plan Assessment/Plan (1) Acute pancreatitis: (2) Colitis: PLAN: 1. Acute recurrent pancreatitis, related to chronic alcohol abuse- CT of abdomen and pelvis on admission demonstrates diffuse submucosal thickening in the majority of the colon, suggestive of diffuse colitis, infectious versus inflammatory. Acute pancreatitis. Advance diet as tolerated. Abdominal pain improved. 2. Acute colitis- Initiated on IV Unasyn. Stool negative for C. difficile and enteric bacteriology. Improving. 3. Alcohol intoxication, chronic alcohol abuse-alcohol level 294 on admission. CIWA/ativan protocol. Denies active withdrawal symptoms however will need close monitoring for impending withdrawal. 5th admission this year related to alcohol abuse/alcohol related complications. Case management consult. Thiamine, folic acid, multivitamin supplementation. 4. Hypokalemia-replace per protocol, trend BMP 5. Lupus with nephritis/vasculitis-on hydroxychloroquine, methotrexate. 6. CAD-aspirin, statin. 7. CVA/TIA-aspirin, statin. 8. Hypertension-stable, continue amlodipine. 9. Anxiety/depression-on sertraline. 10. GERD-on PPI. DVT prophylaxis-Lovenox This patient was seen by Nivia Rodriguez NP under the supervision of Dr. Mac. Documented by User: Dr. Darnell Mac, 06/09/21 15:30 Subjective Subjective Abdominal pain improved. Having fevers overnight. Objective Data Lab / Micro Data Result Diagrams: 06/09/21 06:00 06/09/21 06:00 Physical Exam Const alert Resp normal respiratory effort, no retractions, no use of accessory muscles and clear to auscultation bilaterally Cardio regular rate, regular rhythm, S1 normal heart sound and S2 normal heart sound GI normal to inspection, nondistended, normoactive bowel sounds and non-tender GI Narrative: slight distention. Assessment & Plan Assessment/Plan (1) Acute pancreatitis: (2) Colitis: PLAN: Patient seen and examined independently. Data and vitals reviewed. I agree with the above note by the nurse practitioner. 1. Acute pancreatitis: Secondary to alcohol. Patient states that she is not a daily drinker is only had alcohol couple times most recently. Advised not to drink any further. 2. Acute colitis: qSOFA score of 0 therefore sepsis not present. Patient still with diarrhea. I do not feel that this is just directly related with the pancreatitis being that is more diffuse. Will start the patient on a mpicillin/sulbactam and observe. Could be infectious versus ischemic. Patient will need outpatient colonoscopy. She states that she has had colonoscopy relatively recently. 3. Alcohol abuse: Patient does not endorse daily drinking. Patient, at this point time, commits to being sober given the likelihood that this about pancreatitis was related to her alcohol consumption. 4. Fevers: Monitor for now. Can be related to inflammation to the pancreatitis and colitis. Patient also could also has some atelectasis as she did have some bibasilar crackles. Advised continue usage of the incentive spirometer. If patient is still having fevers then would pursue additional work-up. Patient di d have a COVID-19 PCR performed on that was negative. Patient has been vaccinated for COVID-19. Charges/Coding Visit Charges Inpatient E&M: 17421 Subs Hosp L2
[2021-06-09] MEDS: Potassium Chloride 10mEq/100mL 10 MEQ/100 ML IV.SOLN. 100 MEQ IV BOLUS ×4 (13:05→17:10)
[2021-06-09 14:31] VITALS: BP 109/76; PULSE 106; RESP 16; TEMP 37; O2SAT 94
[2021-06-09] MEDS: 0.9% Saline Lock 10 ML Syringe IV (14:44)
[2021-06-09] MEDS: Potassium Chloride Oral Tablet 20 MEQ 40 MEQ PO (18:18)
[2021-06-09 19:53] VITALS: BP 125/80; PULSE 104; RESP 16; TEMP 36.8; O2SAT 94
[2021-06-09] MEDS: Atorvastatin Calcium 20 MG Tablet PO (21:19)
[2021-06-10] VITALS (7 sets, daily range): BP systolic 93–128; BP diastolic 75–94; PULSE 100–116; RESP 16–18; TEMP 36.8–37.6; O2SAT 90–100
[2021-06-10] MEDS: HYDROmorphone 0.5 MG/0.5 ML SYRINGE IV ×2 (02:12→07:05)
[2021-06-10] MEDS: LORazepam 1 MG Tablet 2 MG PO ×3 (05:02→16:03)
[2021-06-10] MEDS: 0.9% Saline Lock 10 ML Syringe IV ×3 (07:05→18:04)
[2021-06-10 08:11] LABS: Anion Gap 5 (5-15); BUN 2 mg/dL (7-18); BUN/Creat Ratio 5.4 RATIO (10-20); Calcium,Total 8.1 mg/dL (8.5-10.1); Chloride 104 mmol/L (98-107); Creatinine, Serum 0.37 mg/dL (0.55-1.02); EST Glomerular Filtration Rate 197 mL/min (>60); Est Glom Filt Rate - Afr Amer 239 mL/min (>60); Estimated Creatinine Clearance 185.54 ml/min; Glucose 74 mg/dL (74-106); Potassium 3.2 mmol/L (3.5-5.1); Sodium Level 138 mmol/L (136-145)
[2021-06-10] MEDS: Multivitamins,Ther W-Minerals Tablet 1 TABLET PO (08:13)
[2021-06-10] MEDS: Hydroxychloroquine 200 MG Tablet PO ×2 (08:13→17:07)
[2021-06-10] MEDS: Methotrexate 2.5 MG Tablet 15 MG PO (08:15)
[2021-06-10] MEDS: amLODIPine 5 MG Tablet PO (08:15)
[2021-06-10] MEDS: Pantoprazole Sodium 40 MG Tablet PO ×2 (08:16→20:08)
[2021-06-10] MEDS: Sertraline 50 MG Tablet 150 MG PO (08:17)
--- NOTE | 2021-06-10 08:26 | NURSING ---
pt is confused and keeps wandering outside room with purse asking if she can be d/c. Pt. asked about laundry and motorized wheelchair, pt. is up and independent. pt. directed back to room. helped pt order breakfast and primary nurse Aura notified.
--- NOTE | 2021-06-10 08:54 | PCM.DC ---
Discharge Instructions Diet Discharge Diet: Light diet - advance as tolerated Activity Discharge Activity: Return to Normal Activity Dressing / Incision Call your doctor if you observe: Fever of 101 or Higher, Shortness of breath, Dizziness and Chest pain Follow Up Care Test Results: Test results from this visit will be discussed in further detail at your follow-up appointment, if applicable. Discharge Plan Admission Admit Date/Time: 06/05/21 17:50 Primary Reason for Your Visit: Pancreatitis, colitis Attending Provider: Darnell Mac Primary Care Provider: Froylan Grant Instructions Additional Instructions / Restrictions: You were placed on potassium supplement at discharge due to low potassium levels. You will need repeat BMP within one week by PCP to reassess. This may be discontinued if repeat lab is normal. Discharge Orders/Prescriptions Prescriptions: New amoxicillin-pot clavulanate [Augmentin] 875-125 mg tablet 1 tab PO BID 8 Days Qty: 16 RF: 0 potassium chloride [K-Tab] 20 mEq tablet extended release 40 meq PO DAILY 7 Days Qty: 14 RF: 0 Continued hydroxychloroquine 200 MG tablet 200 mg PO BID RF: 0 pantoprazole [Protonix] 40 mg Tablet,Delayed Release (Dr/Ec) 40 mg PO BID RF: 0 atorvastatin 20 MG tablet 20 mg PO QHS RF: 0 hydroxyzine HCl 50 mg Tablet 50 mg PO Q8H PRN PRN (Reason: Pain) RF: 0 amlodipine 5 mg Tablet 5 mg PO DAILY RF: 0 promethazine 25 MG tablet 25 mg PO Q6H PRN PRN (Reason: Nausea) Qty: 10 RF: 0 sertraline 100 mg Tablet 150 mg PO DAILY RF: 0 methotrexate sodium 2.5 mg Tablet 15 mg PO WESA RF: 0 ergocalciferol (vitamin D2) 1,250 mcg (50,000 unit) Capsule 1,250 mcg PO SA RF: 0 Referrals / Follow Up: Froylan Grant MD [Primary Care Provider] - In 1 Week Disposition Disposition (needs filled in before D/C Order can be placed): Home, Self Care
--- NOTE | 2021-06-10 09:07 | DS.PCM_ITS ---
Providers Date of Admission: 06/05/21 Date of Discharge: 06/10/21 Primary Care Physician: Dr. Froylan Grant MD Reason For Visit: ACUTE PANCREATITIS, COLITIS Diagnosis Discharge Diagnosis (1) Acute pancreatitis: Status: Acute Code(s): K85.90 - Acute pancreatitis without necrosis or infection, unspecified (2) Colitis: Status: Acute Code(s): K52.9 - Noninfective gastroenteritis and colitis, unspecified Medications at Discharge Home Medications hydroxychloroquine 200 mg PO BID 09/26/20 pantoprazole [Protonix] 40 mg PO BID 03/17/21 atorvastatin 20 mg PO QHS 05/06/21 amlodipine 5 mg PO DAILY 05/20/21 hydroxyzine HCl 50 mg PO Q8H PRN PRN 05/20/21 promethazine 25 mg PO Q6H PRN PRN #10 tablet 05/20/21 ergocalciferol (vitamin D2) 1,250 mcg PO SA 06/05/21 methotrexate sodium 15 mg PO WESA 06/05/21 sertraline 150 mg PO DAILY 06/05/21 amoxicillin-pot clavulanate [Augmentin] 1 tab PO BID 8 Days #16 tab 06/10/21 potassium chloride [K-Tab] 40 meq PO DAILY 7 Days #14 tab 06/10/21 Hospital Course Operations None Procedures None Summary of Care Provided Minutes Spent on Discharge: 35 Hospital Course: Patient is a 51-year-old female admitted 06/05/2021 due to abdominal pain. 1. Acute recurrent pancreatitis, related to chronic alcohol abuse-CT of abdomen and pelvis on admission demonstrates diffuse submucosal thickening in the majority of the colon, suggestive of diffuse colitis, infectious versus inflammatory. Acute pancreatitis. Advance diet as tolerated. Abdominal pain improved. 2. Acute colitis- IV Unasyn during admission. Stool negative for C. difficile and enteric bacteriology. Improved. Continue Augmentin at discharge to complete 10-day course. Will need follow-up with GI/general surgery for outpatient colonoscopy. 3. Alcohol intoxication, chronic alcohol abuse-alcohol level 294 on admission. CIWA/ativan protocol. 5th admission this year related to alcohol abuse/alcohol related complications. Patient declined [facility] consult. 4. Hypokalemia-replace per protocol. Discharged on potassium supplement x1 week, will need repeat BMP within 1 week. If potassium normal on repeat lab, recommend discontinuing potassium supplement. 5. Lupus with nephritis/vasculitis-on hydroxychloroquine, methotrexate. 6. CAD-aspirin, statin. 7. CVA/TIA-aspirin, statin. 8. Hypertension-stable, continue amlodipine. 9. Anxiety/depression-on sertraline. 10. GERD-on PPI. Physical Exam Const alert, oriented x3 and no apparent distress Orientation / Consciousness: awake, oriented to person, oriented to place and oriented to time HEENT normocephalic and moist oral mucous membranes Eyes PERRL, EOMs intact bilaterally and conjunctivae normal Neck no lymphadenopathy Resp normal respiratory effort and clear to auscultation bilaterally Cardio regular rate, regular rhythm and no murmurs Peripheral Pulses: pulses 2+ throughout GI normal to inspection, nondistended, normoactive bowel sounds, non-tender and non-distended Extremity normal to inspection Skin no rashes or lesions noted Lesions: no lesions Rashes: no rashes Trauma: no lacerations or abrasions Neuro CN's II-XII intact bilaterally, no focal motor deficits, no sensory deficits noted and deep tendon reflexes 2+ bilaterally Psych mental status grossly normal and affect normal Patient seen and examined prior to discharge. Physical assessment as noted above. Patient is stable for discharge with follow up recommendations as noted above. This patient was seen by BILLY Bruno under the supervision of Dr. Mac. Weight / BMI Weight Weight: 147 lb 7.828 oz Body Mass Index (BMI) 20.2 ABG / Lab / Microbiology Data Result Diagrams: 06/09/21 06:00 06/10/21 06:55 Laboratory: Laboratory Results - last 24 hr 06/10/21 06:55: Sodium 138, Potassium 3.2 L, Chloride 104, Carbon Dioxide 29.0, Anion Gap 5, BUN 2 L, Creatinine 0.37 L, Estim Creat Clear Calc 185.54, Est GFR (MDRD) Af Amer 239, Est GFR (MDRD) Non-Af 197, BUN/Creatinine Ratio 5.4 L, G lucose 74, Calcium 8.1 L Microbiology: Microbiology 06/06/21 15:20 Stool Enteric Bacteriology - Final 06/06/21 15:20 Stool C. difficile DNA Amplification - Final 06/05/21 17:50 Nasal Secretion SARS-CoV-2 Antigen (Rapid) - Final D/C Instructions Discharge Diet: Light diet - advance as tolerated Call your doctor if you observe: Fever of 101 or Higher, Shortness of breath, Dizziness and Chest pain Meaningful Use Info Meaningful Use Diagnoses (Choose all that apply): None applicable Discharge Plan Admission Admit Date/Time: 06/05/21 17:50 Primary Reason for Your Visit: Pancreatitis, colitis Attending Provider: Darnell Mac Primary Care Provider: Froylan Grant Instructions Additional Instructions / Restrictions: You were placed on potassium supplement at discharge due to low potassium levels. You will need repeat BMP within one week by PCP to reassess. This may be discontinued if repeat lab is normal. Discharge Orders/Prescriptions Prescriptions: New amoxicillin-pot clavulanate [Augmentin] 875-125 mg tablet 1 tab PO BID 8 Days Qty: 16 RF: 0 potassium chloride [K-Tab] 20 mEq tablet extended release 40 meq PO DAILY 7 Days Qty: 14 RF: 0 Continued hydroxychloroquine 200 MG tablet 200 mg PO BID RF: 0 pantoprazole [Protonix] 40 mg Tablet,Delayed Release (Dr/Ec) 40 mg PO BID RF: 0 atorvastatin 20 MG tablet 20 mg PO QHS RF: 0 hydroxyzine HCl 50 mg Tablet 50 mg PO Q8H PRN PRN (Reason: Pain) RF: 0 amlodipine 5 mg Tablet 5 mg PO DAILY RF: 0 promethazine 25 MG tablet 25 mg PO Q6H PRN PRN (Reason: Nausea) Qty: 10 RF: 0 sertraline 100 mg Tablet 150 mg PO DAILY RF: 0 methotrexate sodium 2.5 mg Tablet 15 mg PO WESA RF: 0 ergocalciferol (vitamin D2) 1,250 mcg (50,000 unit) Capsule 1,250 mcg PO SA RF: 0 Referrals / Follow Up: Froylan Grant MD [Primary Care Provider] - In 1 Week Disposition Disposition (needs filled in before D/C Order can be placed): Home, Self Care
--- NOTE | 2021-06-10 09:26 | PN.HOSP_ITS ---
Documented by User: Nivia Rodriguez NP, INVESTIGATIVE SHOPPER-C 06/10/21 09:43 Subjective Subjective Patient seen and examined. Appears disheveled. Upper extremity tremors noted. Patient denies diarrhea, nausea to this provider. States she is dressed and ready to leave and that she needed to leave 15 minutes ago. Per nursing, patient attempted to leave this morning at 7am with her IV pole and has been noted to have increased confusion which was not present prior. Objective Data Objective Data Vital Signs: Vital Signs Temp Pulse Resp BP Pulse Ox 99.6 F H 110 H 16 105/75 90 06/10/21 07:56 06/10/21 07:56 06/10/21 07:56 06/10/21 07:56 06/10/21 07:56 Oxygen Delivery Method Room Air Weight: 147 lb 7.828 oz Body Mass Index (BMI) 20.2 Intake & Output: Intake and Output for Last 24 Hours 06/08/21 06/09/21 06/10/21 23:59 23:59 23:59 Intake Total 2095 3416 / 3416 462.75 / 462.75 Balance 2095 3416 / 3416 462.75 / 462.75 Lab / Micro Data Result Diagrams: 06/09/21 06:00 06/10/21 06:55 Labs: Laboratory Results - last 24 hr 06/10/21 06:55: Sodium 138, Potassium 3.2 L, Chloride 104, Carbon Dioxide 29.0, Anion Gap 5, BUN 2 L, Creatinine 0.37 L, Estim Creat Clear Calc 185.54, Est GFR (MDRD) Af Amer 239, Est GFR (MDRD) Non-Af 197, BUN/Creatinine Ratio 5.4 L, Glucose 74, Calcium 8.1 L Micro: Microbiology 06/06/21 15:20 Stool Enteric Bacteriology - Final 06/06/21 15:20 Stool C. difficile DNA Amplification - Final 06/05/21 17:50 Nasal Secretion SARS-CoV-2 Antigen (Rapid) - Final Physical Exam Const alert Constitutional Narrative: Upper extremity tremors noted General Appearance: anxious and disheveled Orientation / Consciousness: disoriented HEENT normocephalic and moist oral mucous membranes Eyes PERRL, EOMs intact bilaterally and conjunctivae normal Neck no lymphadenopathy Resp normal respiratory effort and clear to auscultation bilaterally Cardio regular rate, regular rhythm and no murmurs Peripheral Pulses: pulses 2+ throughout GI normal to inspection, nondistended, normoactive bowel sounds, non-tender and non-distended Extremity normal to inspection Skin no rashes or lesions noted Lesions: no lesions Rashes: no rashes Trauma: no lacerations or abrasions Neuro CN's II-XII intact bilaterally, no focal motor deficits, no sensory deficits noted and deep tendon reflexes 2+ bilaterally Psych Activity / Motor Behavior: fidgetting and restless Mood & Affect: anxious Assessment & Plan Assessment/Plan (1) Alcohol withdrawal: PLAN: 1. Acute alcohol withdrawal, chronic alcohol abuse-alcohol level 294 on admission. CIWA/ativan protocol. 5th admission this year related to a lcohol abuse/alcohol related complications. Thiamine, folic acid, multivitamin supplementation. Patient is on day 5 of admission and this morning noted to be confused, increased tremors and restless. Initiated on phenobarbitol taper. Continue medical stabilization protocol. Addiction medicine consult if amendable. Patient is currently established with program. 2. Acute recurrent pancreatitis, related to chronic alcohol abuse-CT of abdomen and pelvis on admission demonstrates diffuse submucosal thickening in the majority of the colon, suggestive of diffuse colitis, infectious versus inflam matory. Acute pancreatitis. Advance diet as tolerated. Improved. 3. Acute colitis- Initiated on IV Unasyn. Stool negative for C. difficile and enteric bacteriology. Improving. Transition to oral Augmentin at discharge for 10 day course. 4. Hypokalemia-replace per protocol, trend BMP. 5. Lupus with nephritis/vasculitis-on hydroxychloroquine, methotrexate. 6. CAD-aspirin, statin. 7. CVA/TIA-aspirin, statin. 8. Hypertension-stable, continue amlodipine. 9. Anxiety/depression-on sertraline. 10. GERD-on PPI. DVT prophylaxis-Lovenox sc This patient was seen by Nivia Rodriguez NP under the supervision of Dr. Mac. Documented by User: Dr. Darnell Mac, DO 06/10/21 14:20 Subjective Subjective Patient states that her belly pain is better but whenever she eats she throws up or has diarrhea or both. Objective Data Lab / Micro Data Result Diagrams: 06/09/21 06:00 06/10/21 06:55 Physical Exam Narrative Is more confused today. Goes off on Lashonda tangents including getting the closet in the bathroom confused, talking about her ankle surgery and then talking about a dissolve meant of her marriage and the child without any real context. She is tremulous. Patient had her phone out and was attempting to enter in the past code and not sure if she pause because I could see her code or if she just forgot her code. Did not address directly with her. But I could tell that her hand was tremulous. Const Orientation / Consciousness: confused Resp normal respiratory effort, no retractions, no use of accessory muscles and clear to auscultation bilaterally Cardio regular rate, regular rhythm, S1 normal heart sound and S2 normal heart sound GI normal to inspection, nondistended, normoactive bowel sounds, soft to palpation, non-tender and non-distended Extremity normal to inspection Assessment & Plan Assessment/Plan (1) Alcohol withdrawal: (2) Colitis: (3) Acute pancreatitis: PLAN: Patient seen and examined independently. Data and vitals reviewed. I agree with the above note by the nurse practitioner. 1. Acute pancreatitis: Secondary to alcohol. Patient states that she is not a daily drinker is only had alcohol couple times most recently. Advised not to drink any further. 2. Acute colitis: qSOFA score of 0 therefore sepsis not present. Patient still with diarrhea. I do not feel that this is just directly related with the pancreatitis being that is more diffuse. Will start the patient on ampicillin/sulbactam and observe. Could be infectious versus ischemic. Patient will need outpatient colonoscopy. She states that she has had colonoscopy relatively recently. 3. Alcohol abuse: Patient does not endorse daily drinking. Patient, at this point time, commits to being sober given the likelihood that this about pancreatitis was related to her alcohol consumption. 4. Fevers: Monitor for now. Can be related to inflammation to the pancreatitis and colitis. Patient also could also has some atelectasis as she did have some bibasilar crackles. Advised continue usage of the incentive spirometer. If patient is still having fevers then would pursue additional work-up. Patient did have a COVID-19 PCR performed on that was negative. Patient has been vaccinated for COVID-19. 5. Acute alcohol withdrawal. Patient is overall worse today. Plan is to initiate phenobarbital. Patient was asking be discharged but patient is medically not stable. Patient continues to endorse that she drinks infrequently but now states that she drinks every 3 days. Suspect that at some much more frequent. Greater than 35 minutes of which greater than 50% time was discussing with the patient and evaluate the patient regards to her alcohol withdrawal as well as colitis. Charges/Coding Visit Charges Inpatient E&M: 26955 Subs Hosp L3
[2021-06-10] MEDS: Phenobarbital 32.4 MG Tablet 64.8 MG PO ×4 (09:46→20:30)
[2021-06-10] MEDS: Potassium Chloride Oral Tablet 20 MEQ 40 MEQ PO (09:46)
--- NOTE | 2021-06-10 09:51 | CASEMGMT ---
ALEXANDRU MILES notified by student financial services counselor that [place] TC to [facility] to verify qualifications. Given Gennaro phone number at [facility]. Verified that pt dx of colitis and pancreatitis should qualify. Pt needs a script with product listed, how many ailyn/day pt needs, how many cans/day, #of refills and dx codes. This will be shipped UPS to patient's home. Notified pt of this.
--- NOTE | 2021-06-10 14:42 | CASEMGMT ---
Social Work Note Pt is actively withdrawing from [facility]. TIMOTHY reviewed chart. Pt is active with [facility], see's a counselor named Olga Lidia. SW in to speak with pt. SW introduced self and role at [facility]. Pt agreeable to speaking with addiction therapist. Pt signed Release of information for addiction therapist. Pt confirms that she is currently linked up with a counselor Olga Lidia at [facility]. Pt states she see's Olga Lidia twice a week, states that going to counseling has helped. TIMOTHY placed AD on chart. TIMOTHY placed a call to Dariana, Addiction Therapist, and provided referral. Karly Flores WORKGROUP LEADER, [employer]
--- NOTE | 2021-06-10 16:35 | NURSING ---
Pt continues with confusion and has been found in the halls numerous times wandering around. pt is currently sitting in the chair talking to her purse. Pt thinks family is in room and talking about going to [facility].
[2021-06-10] MEDS: Acetaminophen 325 MG Tablet 650 MG PO (20:07)
[2021-06-10] MEDS: Temazepam 15 MG Capsule PO (20:07)
[2021-06-10] MEDS: hydrOXYzine PAM 25 MG Capsule 50 MG PO (20:07)
[2021-06-10] MEDS: Atorvastatin Calcium 20 MG Tablet PO (20:08)
[2021-06-11] MEDS: Phenobarbital 32.4 MG Tablet 64.8 MG PO ×6 (01:22→21:06)
[2021-06-11 01:26] VITALS: BP 127/85; PULSE 100; RESP 18; TEMP 36.7; O2SAT 98
[2021-06-11] MEDS: Ondansetron 4 MG/2 ML Vial IV (01:31)
[2021-06-11] MEDS: 0.9% Saline Lock 10 ML Syringe IV ×3 (01:31→06:02)
[2021-06-11 01:52] VITALS: PULSE 100
[2021-06-11 06:07] VITALS: BP 103/86; PULSE 94; RESP 18; TEMP 37.3; O2SAT 98
[2021-06-11 06:27] LABS: Absolute Lymphocyte Count 1.11 X10^3/uL (0.83-4.51); Absolute Neutrophil Count 5.9 X10^3/uL (2.0-7.7); Basophil# 0.05 X10^3/uL; Basophil% 0.6 % (0-1); Eosinophil# 0.26 X10^3/uL; Eosinophils% 3.3 % (0-5); Hematocrit 28.7 % (37-47); Hemoglobin 9.3 g/dL (12.0-15.0); Lymphocyte # 1.11 X10^3/ul (0.83-4.51); Lymphocyte % 14.3 % (19-41); Mean Corp Hgb Conc 32.4 g/dL (32-36); Mean Corpuscular Hgb 29.4 pg (27.0-32.0); Mean Corpuscular Volume 90.8 fL (81-99); Mean Platelet Vol. 9.6 fl (6.2-12.0); Monocyte# 0.47 X10^3/uL; NRBC Flagged by Analyzer 0 % (0-5); Neutrophil # 5.85 X10^3/uL (2.7-7.7); Neutrophil % 75.3 % (47-70); Platelet Count 335 K/mm3 (150-450); RBC Distribution Width CV 18.6 % (11.6-14.6); RBC Distribution Width SD 62.1 fl (35.1-43.9); Red Blood Count 3.16 M/mm3 (4.2-5.4); White Blood Count 7.8 K/mm3 (4.4-11.0)
[2021-06-11 06:52] LABS: Anion Gap 7 (5-15); BUN 3 mg/dL (7-18); BUN/Creat Ratio 6.4 RATIO (10-20); Calcium,Total 8.5 mg/dL (8.5-10.1); Chloride 103 mmol/L (98-107); Creatinine, Serum 0.47 mg/dL (0.55-1.02); EST Glomerular Filtration Rate 151 mL/min (>60); Est Glom Filt Rate - Afr Amer 183 mL/min (>60); Estimated Creatinine Clearance 145.37 ml/min; Glucose 81 mg/dL (74-106); Potassium 3.3 mmol/L (3.5-5.1); Sodium Level 137 mmol/L (136-145)
[2021-06-11 08:40] VITALS: BP 120/80; PULSE 96; RESP 18; TEMP 37.3; O2SAT 94
[2021-06-11] MEDS: Multivitamins,Ther W-Minerals Tablet 1 TABLET PO (08:43)
[2021-06-11] MEDS: Pantoprazole Sodium 40 MG Tablet PO ×2 (08:44→21:07)
[2021-06-11] MEDS: amLODIPine 5 MG Tablet PO (08:44)
[2021-06-11] MEDS: Hydroxychloroquine 200 MG Tablet PO ×2 (08:44→17:20)
[2021-06-11] MEDS: Sertraline 50 MG Tablet 150 MG PO (08:45)
[2021-06-11] MEDS: Acetaminophen 325 MG Tablet 650 MG PO ×2 (08:53→19:40)
[2021-06-11] MEDS: Potassium Chloride Oral Tablet 20 MEQ 40 MEQ PO (08:54)
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
--- NOTE | 2021-06-11 12:38 | ADDICTION ---
This worker met with pt about alcohol use and plans after discharge. She reports she plans to follow up with [facility] and may decide to do in-patient therapy.
[2021-06-11 14:01] VITALS: BP 109/71; PULSE 88; RESP 16; TEMP 37; O2SAT 95
[2021-06-11 20:57] VITALS: BP 105/73; PULSE 87; RESP 16; TEMP 37.5; O2SAT 94
[2021-06-11] MEDS: Atorvastatin Calcium 20 MG Tablet PO (21:07)
[2021-06-11] MEDS: Dicyclomine 10 MG Capsule 20 MG PO (21:09)
[2021-06-11] MEDS: hydrOXYzine PAM 25 MG Capsule 50 MG PO (21:12)
[2021-06-12] MEDS: Phenobarbital 32.4 MG Tablet 64.8 MG PO ×5 (01:46→18:22)
[2021-06-12 01:57] VITALS: BP 117/80; PULSE 93; RESP 16; TEMP 36.6; O2SAT 95
[2021-06-12 06:14] LABS: Anion Gap 6 (5-15); BUN 4 mg/dL (7-18); BUN/Creat Ratio 6.4 RATIO (10-20); Calcium,Total 8.7 mg/dL (8.5-10.1); Chloride 104 mmol/L (98-107); Creatinine, Serum 0.63 mg/dL (0.55-1.02); EST Glomerular Filtration Rate 107 mL/min (>60); Est Glom Filt Rate - Afr Amer 130 mL/min (>60); Estimated Creatinine Clearance 106.41 ml/min; Glucose 106 mg/dL (74-106); Potassium 3.4 mmol/L (3.5-5.1); Sodium Level 136 mmol/L (136-145)
[2021-06-12 08:20] VITALS: PULSE 90; O2SAT 98
[2021-06-12 08:45] VITALS: BP 125/82; PULSE 90; RESP 18; TEMP 37.1; O2SAT 98
[2021-06-12] MEDS: Multivitamins,Ther W-Minerals Tablet 1 TABLET PO (08:49)
[2021-06-12] MEDS: Hydroxychloroquine 200 MG Tablet PO ×2 (08:50→18:22)
[2021-06-12] MEDS: amLODIPine 5 MG Tablet PO (08:51)
[2021-06-12] MEDS: Pantoprazole Sodium 40 MG Tablet PO ×2 (08:52→21:58)
[2021-06-12] MEDS: Sertraline 50 MG Tablet 150 MG PO (08:52)
--- NOTE | 2021-06-12 10:06 | CASEMGMT ---
ALEXANDRU MILES NOTE: Per Dr Mac, anticipate pt may be ready for discharge home tomorrow. Per Daphne @ [facility], script can be faxed to them prior to pt discharge, as it will need to go through prior approval dep't and they will contact pt prior to shipping it to her home. Script for Ensure [facility]live obtained from Dr Mac and faxed to [facility] at this time. Script included how many ailyn/day pt needs, how many cans/day, #of refills and dx codes. Pt made aware script has been faxed to [facility] and that they will contact her prior to shipping. She was also provided w/[facility] contact info and given a copy of the script. Pt denies having any other discharge planning/home-going needs at this time. Gianni RIDDLE RN CM
[2021-06-12 12:48] VITALS: BP 107/74; PULSE 90; RESP 20; TEMP 36.7; O2SAT 98
[2021-06-12] MEDS: Dicyclomine 10 MG Capsule 20 MG PO ×2 (14:03→21:57)
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
[2021-06-12 16:10] VITALS: BP 120/82; PULSE 95; RESP 13; TEMP 35.4; O2SAT 95
[2021-06-12] MEDS: proMETHazine 25 MG/ML Syringe IM (18:29)
[2021-06-12 21:45] VITALS: BP 124/90; PULSE 87; RESP 18; TEMP 37.1; O2SAT 98
[2021-06-12] MEDS: Acetaminophen 325 MG Tablet 650 MG PO (21:57)
[2021-06-12] MEDS: hydrOXYzine PAM 25 MG Capsule 50 MG PO (21:57)
[2021-06-12] MEDS: Atorvastatin Calcium 20 MG Tablet PO (21:57)
[2021-06-12] MEDS: Amox/Clavulanate 875 MG Tablet PO (21:58)
[2021-06-13] MEDS: Phenobarbital 32.4 MG Tablet 64.8 MG PO ×3 (00:31→11:58)
[2021-06-13 03:58] VITALS: BP 130/85; PULSE 83; RESP 18; TEMP 36.9; O2SAT 95
[2021-06-13] MEDS: Dicyclomine 10 MG Capsule 20 MG PO (04:04)
[2021-06-13 09:00] VITALS: BP 107/73; PULSE 95; RESP 16; TEMP 37.2; O2SAT 100
[2021-06-13] MEDS: Methotrexate 2.5 MG Tablet 15 MG PO (09:06)
[2021-06-13] MEDS: Hydroxychloroquine 200 MG Tablet PO (09:07)
[2021-06-13] MEDS: Amox/Clavulanate 875 MG Tablet PO (09:07)
[2021-06-13] MEDS: Pantoprazole Sodium 40 MG Tablet PO (09:07)
[2021-06-13] MEDS: Sertraline 50 MG Tablet 150 MG PO (09:07)
[2021-06-13] MEDS: amLODIPine 5 MG Tablet PO (09:07)
[2021-06-13] MEDS: Multivitamins,Ther W-Minerals Tablet 1 TABLET PO (09:07)
[2021-06-13] MEDS: hydrOXYzine PAM 25 MG Capsule 50 MG PO (11:59)
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
[2021-06-13 15:43] VITALS: BP 107/77; PULSE 88; RESP 16; TEMP 36.9; O2SAT 100
--- NOTE | 2021-06-15 18:04 | CASEMGMT ---
ALEXANDRU MILES Discharge Follow-up Phone Call: ANAID: 17 Strata: 4 Call Date: 06/15/21 Discharge Date: 06/13/21 Time of Call: 1600 Admitting Diagnosis: acute pancreatitis, ETOH withdrawal. This ALEXANDRU MILES contacted pt via phone for discharge follow-up. Pt states she has not been doing well since discharge. Pt states she has not been able to eat and has severe abd pain. Pt states she is in the car on the way up to [facility] for her pain to be evaluated. Pt states this is just not any way to live. Pt also reiterated that she has not had a drop of alcohol. Pt states she did appreciate the care from the nurses and that they were wonderful. Renee Nuno RN CM
== END 2021-06-13 15:50 | disposition home or self-care (01) | DRG 282 ==
LOC: ED 14:51 → MS3 18:07
PROVIDERS: Family Medicine; Nurse Practitioner Family; Admitting Provider Family Medicine; Emergency Provider Emergency Medicine; PCP Internal Medicine; Referring Provider Family Medicine
DX: K85.20 Alcohol induced acute pancreatitis without necrosis or infection (principal); F10.229 Alcohol dependence with intoxication, unspecified; F10.231 Alcohol dependence with withdrawal delirium; Y90.8 Blood alcohol level of 240 mg/100 ml or more; E86.0 Dehydration; E87.6 Hypokalemia; Z20.822 Contact with and (suspected) exposure to COVID-19; K52.9 Noninfective gastroenteritis and colitis, unspecified; M32.14 Glomerular disease in systemic lupus erythematosus; M32.19 Other organ or system involvement in systemic lupus erythematosus; G40.909 Epilepsy, unspecified, not intractable, without status epilepticus; I25.10 Atherosclerotic heart disease of native coronary artery without angina pectoris; I10 Essential (primary) hypertension; E78.5 Hyperlipidemia, unspecified; J45.909 Unspecified asthma, uncomplicated; M54.12 Radiculopathy, cervical region; M79.7 Fibromyalgia; G89.29 Other chronic pain; D69.6 Thrombocytopenia, unspecified; K21.9 Gastro-esophageal reflux disease without esophagitis; F32.9 Major depressive disorder, single episode, unspecified; F41.9 Anxiety disorder, unspecified; Z79.899 Other long term (current) drug therapy; I25.2 Old myocardial infarction; Z86.73 Personal history of transient ischemic attack (TIA), and cerebral infarction without residual deficits
CPT/HCPCS: 36415; 74177; 80048; 80053; 80307; 81001; 82077; 83605; 83690; 83735; 84100; 84145; 85025; 87426; 87493; 87506; 87635; 93005; 97802; 97803; 99251; 99282; J7030; J7050; Q9967; U0005; A4216; G0463; J0295; J2405; J3490; J8610; U0003

== ENCOUNTER 2021-07-23 12:13 | Emergency (ER) | payer MEDICAID, SELFPAY ==
[2021-07-23 12:14] VITALS: BP 121/89; PULSE 117; RESP 18; TEMP 36.4; O2SAT 98; BMI 22.3
--- NOTE | 2021-07-23 13:20 | ED.RN ---
PT AND ROCIO REMOVED HERSELF FROM THE MONITORS AND SHE AMBULATED TO THE BR. PT DID NOT WAIT FOR THE BED DYSON AND BSC.
--- NOTE | 2021-07-23 13:21 | ED.RN ---
PT CALLED OUT AND STATED SHE HAS BEEN WAITING JANET BE SEEN AND IF A DR DOESN'T COME IN SOON SHE WILL LEAVE AND GO TO [facility].
--- NOTE | 2021-07-23 13:25 | CT_ITS ---
STUDY: CT BRAIN WITHOUT CONTRAST REASON FOR EXAM: Female, 51 years old. Severe headache RADIATION DOSAGE (If Supplied By Facility): CTDIvol = ( 44.99 ) mGy, DLP = ( 779.24 ) mGycm TECHNIQUE: Transaxial CT imaging of the brain was performed without administration of intravenous contrast material. Individualized dose optimization techniques were used for this CT. COMPARISON: No relevant priors. FINDINGS: Normal soft tissue structures. Normal calvarium. Normal size ventricles and extra-axial spaces for the patient''s age. Normal white matter tracts of the cerebral hemispheres. Normal basal ganglia and thalami. Normal brainstem. Normal cerebellum. There is no intracranial hemorrhage. There are no findings of an acute ischemic infarction. Normal visualized paranasal sinuses. CT/Brain/Head without Contrast IMPRESSION: No acute intracranial abnormalities Electronically Signed: Hilario Yip MD at 14:09 EDT , Service support ,
--- NOTE | 2021-07-23 13:26 | EKG12_ITS ---
Test Reason : SYNCOPE Blood Pressure : / mmHG Vent. Rate : 104 BPM Atrial Rate : 104 BPM P-R Int : 138 ms QRS Dur : 078 ms QT Int : 358 ms P-R-T Axes : 059 063 047 degrees QTc Int : 470 ms Sinus tachycardia Nonspecific T wave abnormality Abnormal ECG Confirmed by ROSE HICKMAN, BARNEY ([id number]), editor continuity and script ANH BEARD ([id number]) on 07/24/2021 1:46:52 PM Referred By: MIC Confirmed By:BARNEY ROSE MD
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
[2021-07-23 13:51] LABS: Absolute Lymphocyte Count 2.69 X10^3/uL (0.83-4.51); Absolute Neutrophil Count 2.3 X10^3/uL (2.0-7.7); Basophil% 1.7 % (0-1); Eosinophil# 0.14 X10^3/uL; Eosinophils% 2.4 % (0-5); Hematocrit 37.8 % (37-47); Hemoglobin 12.6 g/dL (12.0-15.0); Lymphocyte # 2.69 X10^3/ul (0.83-4.51); Lymphocyte % 46.8 % (19-41); Mean Corp Hgb Conc 33.3 g/dL (32-36); Mean Corpuscular Hgb 29.8 pg (27.0-32.0); Mean Corpuscular Volume 89.4 fL (81-99); Mean Platelet Vol. 9.6 fl (6.2-12.0); Monocyte# 0.46 X10^3/uL; NRBC Flagged by Analyzer 0 % (0-5); Neutrophil # 2.34 X10^3/uL (2.7-7.7); Neutrophil % 40.8 % (47-70); Platelet Count 502 K/mm3 (150-450); RBC Distribution Width CV 16.5 % (11.6-14.6); RBC Distribution Width SD 53.7 fl (35.1-43.9); Red Blood Count 4.23 M/mm3 (4.2-5.4); White Blood Count 5.8 K/mm3 (4.4-11.0)
[2021-07-23 14:04] LABS: ALB/GLOB Ratio 0.8 RATIO (0.9-2.4); AST(SGOT) 27 U/L (15-37); Alanine Aminotransfer ALT/SGPT 22 U/L (13-56); Albumin, Serum 3.5 g/dL (3.2-5.0); Alkaline Phosphatase 74 U/L (45-117); Anion Gap 13 (5-15); BUN 6 mg/dL (7-18); BUN/Creat Ratio 8.1 RATIO (10-20); Calcium,Total 8.6 mg/dL (8.5-10.1); Chloride 105 mmol/L (98-107); Creatinine, Serum 0.74 mg/dL (0.55-1.02); EST Glomerular Filtration Rate 88 mL/min (>60); Est Glom Filt Rate - Afr Amer 107 mL/min (>60); Estimated Creatinine Clearance 92.77 ml/min; Globulin 4.2 g/dL (2.2-4.2); Glucose 96 mg/dL (74-106); Lipase 132 U/L (73-393); Potassium 3.3 mmol/L (3.5-5.1); Protein, Total 7.7 g/dL (6.4-8.2); Sodium Level 141 mmol/L (136-145); Troponin-I HS 4 pg/mL (3.0-54.0)
--- NOTE | 2021-07-23 14:25 | EX.ED.DYSGE1 ---
HPI History of Present Illness Chief Complaint: Syncope Informant: patient Onset/Context/Timing Onset: Today Context: Sudden Onset Timing: Continuous Quality: Sharp Location: Head and neck Worsened by: Movement Relieved by: Nothing Narrative Narrative: Patient presents after syncopal episode that occurred today. Patient was sitting at home and she felt like she needed to eat. Patient states she was not sure if her blood sugar was getting low. Patient states she tried to get up and walk. Patient states she was unsteady on her feet. Patient states she fell and passed out. Patient is unsure how long she was out for. Patient hit the right side of her head. Patient complains of pain in her head and neck. Patient states this is worse with movement. Patient states it starts in her neck and shoots up into her head. Patient states she broke out into a sweat. Patient states she was having some diplopia prior to passing out. Patient states she had an episode of nausea and vomiting earlier today. [facility] Medical History Alcohol abuse Alcohol abuse Anxiety and depression Asthma CAD (coronary artery disease) Cervical neuropathy Depression Dissection, vertebral artery Fibromyalgia HTN (hypertension) Hypertension Kidney stones Lupus nephritis Lupus vasculitis Myocardial infarct Pancreatitis Seizures Systemic lupus erythematosus Thrombocytopenia TIA (transient ischemic attack) Home Medications hydroxychloroquine 200 mg PO BID 09/26/20 [History Last Taken 06/05/21] pantoprazole [Protonix] 40 mg PO BID 03/17/21 [History Last Taken 06/04/21] atorvastatin 20 mg PO QHS 05/06/21 [History Last Taken 06/02/21] amlodipine 5 mg PO DAILY 05/20/21 [History Last Taken 06/02/21] hydroxyzine HCl 50 mg PO Q8H PRN PRN 05/20/21 [History Last Taken Unknown] promethazine 25 mg PO Q6H PRN PRN #10 tablet 05/20/21 [Rx Last Taken Unknown] ergocalciferol (vitamin D2) 1,250 mcg PO SA 06/05/21 [History Last Taken 05/30/21] methotrexate sodium 15 mg PO WESA 06/05/21 [History Last Taken 06/03/21] sertraline 150 mg PO DAILY 06/05/21 [History Last Taken 06/02/21] potassium chloride [K-Tab] 40 meq PO DAILY 7 Days #14 tab 06/10/21 [Rx Last Taken Unknown] Allergy/AdvReac Type Severity Reaction Status Date / Time metoclopramide HCl Allergy anxious Verified 07/23/21 12:23 [From Reglan] peanut Allergy Anaphylaxis Verified 07/23/21 12:23 Sulfa (Sulfonamide Allergy Hives Verified 07/23/21 12:23 Antibiotics) prednisone AdvReac psychosis Verified 07/23/21 12:23 prochlorperazine AdvReac anxious Verified 07/23/21 12:23 [From Compazine] Family History (Updated 06/05/21 @ 20:07 by Evangelina Thacker) Father Diabetes CAD (coronary artery disease) Melanoma Mother Rheumatoid arthritis Melanoma Other Multiple sclerosis Surgical History H/O cervical spine surgery H/O knee surgery History of cholecystectomy History of hysterectomy S/P appendectomy Social History household members: none housing: apartment Smoking Status: Never smoker alcohol intake: current alcohol intake frequency: 3 or more drinks per day Alcohol type: hard liquor details: Patient reports only recently 2 [employer] hard lemonades, last at midnight. substance use type: does not use ROS ROS ED Constitutional Constitutional ED: Reports sweats; Denies chills or fever(s) Eyes Eyes: Reports diplopia; Denies blurry vision ENT ENT ED: Denies rhinorrhea or sore throat Cardiovascular Cardiovascular: Denies chest pain or palpitations Respiratory/Chest Respiratory/Chest: Denies cough or dyspnea Gastrointestinal Gastrointestinal: Reports nausea and vomiting Genitourinary Genitourinary ED: Denies dysuria or hematuria Musculoskeletal Musculoskeletal: Reports neck pain; Denies back pain Integumentary Denies abscess or rash Neurologic Neurologic: Reports headache(s); Denies weakness Allergic/Immunologic Allergic/Immunologic ED: Denies mouth swelling or urticaria EXAM Physical Exam Const Vital Signs: 07/23/21 12:14 07/23/21 12:20 Temperature 97.6 F L Temperature Source Oral Pulse Rate 117 H Respiratory Rate 18 Respiratory Effort Normal Respiratory Pattern Normal Blood Pressure 121/89 H Blood Pressure Mean 99 Pulse Ox 98 Oxygen Delivery Method Room Air Positive well nourished and well developed General Appearance ED: well developed HEENT Reports moist mucous membranes Neck supple and no JVD Resp normal respiratory effort and clear to auscultation bilaterally Cardio regular rate, regular rhythm and no murmurs GI normal to inspection, nondistended, normoactive bowel sounds and non-tender Palpation: soft Extremity normal to inspection General Extremety ED: Negative for edema or tenderness General Extremity: Negative for edema Neuro oriented x3, CN's II-XII intact bilaterally and no sensory deficits noted Sensorium / Orientation: alert Motor Exam: strength 5/5 throughout Psych mental status grossly normal Skin no rashes or lesions noted MDM MDM MDM Narrative Medical decision making narrative: EKG was obtained. On my interpretation, it showed a sinus tachycardia with a rate of 104. HI interval, QRS interval, and QTc intervals were all normal. [place] was normal. There are no acute ST or T wave changes. CT scan of the brain was obtained. There is no acute intracranial abnormality. This was interpreted by the radiologist and reviewed by myself. CT scan of the cervical spine was obtained. There is no acute fracture or spondylolisthesis. There are some degenerative changes noted. This was interpreted by the radiologist and reviewed by myself. CBC and comprehensive metabolic profile was within normal limits with the exception of a mild hypokalemia of 3.3. Lipase was normal. Serum alcohol level was 261. Patient was advised of her findings. Patient was given a dose of potassium here. Patient was instructed to follow-up with her primary care physician in 3 to 5 days. Patient understood and was agreeable with the plan. All questions were answered. Lab Data Attestation: I reviewed the patient's lab results. Labs: Laboratory Results - last 24 hr 07/23/21 07/23/21 07/23/21 12:35 12:35 12:35 WBC 5.8 RBC 4.23 Hgb 12.6 Hct 37.8 MCV 89.4 MCH 29.8 MCHC 33.3 RDW Std Deviation 53.7 H RDW Coeff of Leeann 16.5 H Plt Count 502 H MPV 9.6 Immature Gran % (Auto) 0.300 Neut % (Auto) 40.8 L Lymph % (Auto) 46.8 H [place] % (Auto) 8.0 Eos % (Auto) 2.4 Baso % (Auto) 1.7 H Absolute Neuts (auto) 2.3 Absolute Lymphs (auto) 2.69 Nucleated RBC % 0 Sodium 141 Potassium 3.3 L Chloride 105 Carbon Dioxide 23.0 Anion Gap 13 BUN 6 L Creatinine 0.74 Estim Creat Clear Calc 92.77 Est GFR (MDRD) Af Amer 107 Est GFR (MDRD) Non-Af 88 BUN/Creatinine Ratio 8.1 L Glucose 96 Calcium 8.6 Total Bilirubin 0.20 AST 27 ALT 22 Alkaline Phosphatase 74 Troponin I High Sens 4 Total Protein 7.7 Albumin 3.5 Globulin 4.2 Albumin/Globulin Ratio 0.8 L Lipase 132 Ethyl Alcohol 261.0 Radiography Diagnostic Testing: Clinical Impression(s) from Imaging Studies Brain CT 07/23/21 13:25 IMPRESSION: No acute intracranial abnormalities Electronically Signed: Hilario Yip MD at 14:09 EDT , Service support , Cervical Spine CT 07/23/21 13:27 IMPRESSION: Multilevel degenerative and postsurgical changes, as described above. No acute fracture or suspicious osseous lesion Electronically Signed: Hilario Yip MD at 14:16 EDT , Service support , EKG Initial EKG: Attestation: I personally reviewed and interpreted this EKG as follows: Interpretation: Sinus Rhythm (104) and No Acute Injury Pattern Discharge Plan Triage Chief Complaint: Syncope ED Provider: Darnell Giles Dx/Rx/DC Orders Clinical Impression: Syncope and collapse, Alcohol intoxication Instructions: ED Fainting, Uncertain Cause Prescriptions: No Action hydroxychloroquine 200 MG tablet 200 mg PO BID RF: 0 pantoprazole [Protonix] 40 mg Tablet,Delayed Release (Dr/Ec) 40 mg PO BID RF: 0 atorvastatin 20 MG tablet 20 mg PO QHS RF: 0 hydroxyzine HCl 50 mg Tablet 50 mg PO Q8H PRN PRN (Reason: Pain) RF: 0 amlodipine 5 mg Tablet 5 mg PO DAILY RF: 0 promethazine 25 MG tablet 25 mg PO Q6H PRN PRN (Reason: Nausea) Qty: 10 RF: 0 sertraline 100 mg Tablet 150 mg PO DAILY RF: 0 methotrexate sodium 2.5 mg Tablet 15 mg PO WESA RF: 0 ergocalciferol (vitamin D2) 1,250 mcg (50,000 unit) Capsule 1,250 mcg PO SA RF: 0 potassium chloride [K-Tab] 20 mEq tablet extended release 40 meq PO DAILY 7 Days Qty: 14 RF: 0 Primary Care Provider: Froylan Grant Referrals: Froylan Grant MD [Primary Care Provider] - 3-5 Days Disposition Disposition: Home, Self Care
[2021-07-23 14:56] VITALS: BP 121/81; PULSE 60; RESP 16
[2021-07-23] MEDS: Potassium Chloride Oral Tablet 20 MEQ 40 MEQ PO (15:00)
== END 2021-07-23 15:04 | disposition home or self-care (01) ==
PROVIDERS: Emergency Provider Emergency Medicine; PCP Internal Medicine
DX: R55 Syncope and collapse (principal); F10.129 Alcohol abuse with intoxication, unspecified; F41.9 Anxiety disorder, unspecified; F32.A Depression, unspecified; J45.909 Unspecified asthma, uncomplicated; I25.10 Atherosclerotic heart disease of native coronary artery without angina pectoris; I10 Essential (primary) hypertension; Z79.899 Other long term (current) drug therapy; Z86.73 Personal history of transient ischemic attack (TIA), and cerebral infarction without residual deficits; Y90.8 Blood alcohol level of 240 mg/100 ml or more
CPT/HCPCS: 70450; 72125; 80053; 82077; 83690; 84484; 85025; 93005; 99285; A4216

== ENCOUNTER 2021-07-31 17:42 | Inpatient (IN) | payer MEDICAID, SELFPAY ==
[2021-07-31 17:43] VITALS: BP 154/134; PULSE 105; RESP 18; TEMP 36.7; O2SAT 95; BMI 32.8
--- NOTE | 2021-07-31 18:53 | EDS_ITS ---
HPI History of Present Illness Chief Complaint: Upper Extremity Injury Detail of Chief Complaint: Patient states the real reason she is here because of alcohol consumption Informant: patient Onset/Context/Timing Onset: Weeks Context: Sudden Onset Timing: Continuous Quality of Pain: - (Patient states she has been drinking heavily since fall 2 control the pain. She was offered pain medicines but declined. ) Location: Right side of her body Current Severity: Mild Maximum Severity: Severe Worsened by: Movement Relieved by: Alcoholic beverage Associated Symptoms Associated Symptoms: Negative for Parasthesia, Weakness and Loss of Funtion Narrative Narrative: Patient is a 51-year-old woman who presents because of alcohol use. She is drinking to control her pain due to a fall. She states she was seen in the emergency department and informed nothing was serious. She had an extensive work-up when she went to [facility]. She was told she had a rotator cuff tear. She declined pain medicine. She is consuming 1-1.5 bottles of wine per day. She has a prior history of alcohol use. She states her brain feels foggy. She was told she had a concussion. She denies double vision, blurred vision loss of vision. Denies trouble with speech or swallowing. She denies cardiac or respiratory symptoms. She denies GI symptoms. She denies urologic symptoms. Patient informed that she has lupus and that the lupus is destroying her body. She also informed me that she does not know how her perform because she has a fishy smell afterwards. She is very apologetic. Tetanus Immunization: 5-10 years Prior similar symptoms: Yes Recent Illness/Hospitalization: Yes (Patient states she was seen here. She then went to [facility]) [facility] Medical History Alcohol abuse Alcohol abuse Anxiety and depression Asthma CAD (coronary artery disease) Cervical neuropathy Depression Dissection, vertebral artery Fibromyalgia HTN (hypertension) Hypertension Kidney stones Lupus nephritis Lupus vasculitis Myocardial infarct Pancreatitis Seizures Systemic lupus erythematosus Thrombocytopenia TIA (transient ischemic attack) Home Medications hydroxychloroquine 200 mg PO BID 09/26/20 [History Last Taken 06/05/21] pantoprazole [Protonix] 40 mg PO BID 03/17/21 [History Last Taken 06/04/21] atorvastatin 20 mg PO QHS 05/06/21 [History Last Taken 06/02/21] amlodipine 5 mg PO DAILY 05/20/21 [History Last Taken 06/02/21] hydroxyzine HCl 50 mg PO Q8H PRN PRN 05/20/21 [History Last Taken Unknown] promethazine 25 mg PO Q6H PRN PRN #10 tablet 05/20/21 [Rx Last Taken Unknown] ergocalciferol (vitamin D2) 1,250 mcg PO SA 06/05/21 [History Last Taken 05/30/21] methotrexate sodium 15 mg PO WESA 06/05/21 [History Last Taken 06/03/21] sertraline 150 mg PO DAILY 06/05/21 [History Last Taken 06/02/21] potassium chloride [K-Tab] 40 meq PO DAILY 7 Days #14 tab 06/10/21 [Rx Last T aken Unknown] Allergy/AdvReac Type Severity Reaction Status Date / Time metoclopramide HCl Allergy anxious Verified 07/31/21 17:43 [From Reglan] peanut Allergy Anaphylaxis Verified 07/31/21 17:43 Sulfa (Sulfonamide Allergy Hives Verified 07/31/21 17:43 Antibiotics) prednisone AdvReac psychosis Verified 07/31/21 17:43 prochlorperazine AdvReac anxious Verified 07/31/21 17:43 [From Compazine] Family History Father Diabetes CAD (coronary artery disease) Melanoma Mother Rheumatoid arthritis Melanoma Other Multiple sclerosis Surgical History H/O cervical spine surgery H/O knee surgery History of cholecystectomy History of hysterectomy S/P appendectomy Social History household members: none housing: apartment Smoking Status: Never smoker alcohol intake: current alcohol intake frequency: 3 or more drinks per day A lcohol type: hard liquor details: Patient reports only recently 2 [employer] hard lemonades, last at midnight. substance use type: does not use ROS ROS ED Constitutional Constitutional ED: Denies chills, fever(s) or subjective Eyes Eyes: Denies blurry vision, change in vision or diplopia ENT ENT ED: Denies ear pain, rhinorrhea or sore throat Cardiovascular Cardiovascular: Denies chest pain, palpitations or racing heartbeat Respiratory/Chest Respiratory/Chest: Denies cough, dyspnea or dyspnea on exertion Gastrointestinal Gastrointestinal: Reports nausea; Denies abdominal pain, diarrhea or vomiting Genitourinary Genitourinary ED: Denies dysuria, hematuria or urinary frequency Musculoskeletal Musculoskeletal: Reports back pain; Denies myalgias or neck pain Integumentary Denies rash Neurologic Neurologic: Reports headache(s); Denies paresthesias or weakness Psychiatric Psychiatric: Reports anxiety; Denies depression or suicidal thoughts Hematologic/Lymphatic Hematologic/Lymphatic: Denies easy bleeding or easy bruising EXAM Physical Exam Const Vital Signs: 07/31/21 17:43 Temperature 98.1 F Temperature Source Temporal Pulse Rate 105 H Respiratory Rate 18 Blood Pressure 154/134 H Blood Pressure Mean 140 Pulse Ox 95 Oxygen Delivery Method Room Air Positive well nourished and well developed General Appearance ED: well developed and NAD HEENT Reports moist mucous membranes HEENT Narrative: There is no evidence of basilar skull fracture. normocephalic and atraumatic Eyes PERRL and EOMs intact bilaterally Eyes Narrative: There is no subconjunctival hemorrhage. Resp normal respiratory effort and clear to auscultation bilaterally Cardio regular rate, regular rhythm, S1 normal heart sound, S2 normal heart sound and no murmurs GI non-tender, non-distended and no masses GI Narrative: There is no pain palpation of the pelvis. Auscultation: normoactive bowel sounds Palpation: soft Back/Spine no CVA tenderness Cervical Spine: Negative for cervical spine tenderness Thoracic Spine / Upper Back: Negative for thoracic spinal tenderness Lumbar Spine / Lower Back: Negative for lumbar spinal tenderness Extremity normal to inspection; Negative for full ROM General Extremety ED: Negative for edema General Extremity: Negative for edema Neuro oriented x3, CN's II-XII intact bilaterally, moves all extremities, no focal motor deficits and no sensory deficits noted Neuro Narrative: DTR symmetric with no clonus or Babinski sign. Sensorium / Orientation: alert Psych Mood & Affect: anxious Skin Lesions: no lesions Rashes: no rashes Trauma: no lacerations or abrasions MDM MDM MDM Narrative Medical decision making narrative: Will obtain records from [facility]. The roustabout pusher informed me that medical record was closed and no one is able to obtain those records. Will medicate with IV opiate analgesia for her pain. Patient's blood work is remarkable for a significantly elevated ethanol level. She states the morphine she was administered did not help her pain. She states she drinks to take care of the pain. is now present. He states she has been drinking heavily. She would like to enter our detox program. Hospitalist has been called. Lab Data Lab results narrative: Alcohol level is greater than 300. CBC is unremarkable. Electrolyte panel is unremarkable. Alcohol is 353. Patient sitting up and talking with no slurring of her words. She has no nystagmus. She then made the comment that she has a high tolerance. Patient was informed I am reluctant to give any other opiate analgesic. Will treat with Toradol. Discharge Plan Triage Chief Complaint: Upper Extremity Injury ED Provider: Armando Palacio Dx/Rx/DC Orders Clinical Impression: Alcohol dependence with acute alcoholic intoxication, Musculoskeletal limb pain, Injury due to fall, Concussion Prescriptions: No Action hydroxychloroquine 200 MG tablet 200 mg PO BID RF: 0 pantoprazole [Protonix] 40 mg Tablet,Delayed Release (Dr/Ec) 40 mg PO BID RF: 0 atorvastatin 20 MG tablet 20 mg PO QHS RF: 0 hydroxyzine HCl 50 mg Tablet 50 mg PO Q8H PRN PRN (Reason: Pain) RF: 0 amlodipine 5 mg Tablet 5 mg PO DAILY RF: 0 promethazine 25 MG tablet 25 mg PO Q6H PRN PRN (Reason: Nausea) Qty: 10 RF: 0 sertraline 100 mg Tablet 150 mg PO DAILY RF: 0 methotrexate sodium 2.5 mg Tablet 15 mg PO WESA RF: 0 ergocalciferol (vitamin D2) 1,250 mcg (50,000 unit) Capsule 1,250 mcg PO SA RF: 0 potassium chloride [K-Tab] 20 mEq tablet extended release 40 meq PO DAILY 7 Days Qty: 14 RF: 0 Primary Care Provider: Froylan Grant Referrals: Froylan Grant MD [Primary Care Provider] - Disposition Disposition: Acute Care Hospital [facility]
[2021-07-31] MEDS: Ondansetron 4 MG/2 ML Vial IV (19:13)
[2021-07-31] MEDS: Morphine 4 MG/ML Syringe IV (19:13)
[2021-07-31 19:15] LABS: Absolute Lymphocyte Count 2.27 X10^3/uL (0.83-4.51); Absolute Neutrophil Count 2.4 X10^3/uL (2.0-7.7); Basophil# 0.05 X10^3/uL; Eosinophil# 0.05 X10^3/uL; Hematocrit 38.7 % (37-47); Hemoglobin 13.1 g/dL (12.0-15.0); Lymphocyte # 2.27 X10^3/ul (0.83-4.51); Mean Corp Hgb Conc 33.9 g/dL (32-36); Mean Corpuscular Hgb 30.3 pg (27.0-32.0); Mean Corpuscular Volume 89.6 fL (81-99); Mean Platelet Vol. 9.4 fl (6.2-12.0); Monocyte# 0.35 X10^3/uL; Monocyte% 6.8 % (0-10); NRBC Flagged by Analyzer 0 % (0-5); Neutrophil # 2.42 X10^3/uL (2.7-7.7); Neutrophil % 46.8 % (47-70); Platelet Count 312 K/mm3 (150-450); RBC Distribution Width CV 15.8 % (11.6-14.6); RBC Distribution Width SD 52.4 fl (35.1-43.9); Red Blood Count 4.32 M/mm3 (4.2-5.4); White Blood Count 5.2 K/mm3 (4.4-11.0)
[2021-07-31 19:33] LABS: ALB/GLOB Ratio 0.9 RATIO (0.9-2.4); AST(SGOT) 31 U/L (15-37); Alanine Aminotransfer ALT/SGPT 26 U/L (13-56); Albumin, Serum 3.6 g/dL (3.2-5.0); Alkaline Phosphatase 100 U/L (45-117); Anion Gap 10 (5-15); BUN 7 mg/dL (7-18); BUN/Creat Ratio 10.9 RATIO (10-20); Calcium,Total 8.7 mg/dL (8.5-10.1); Chloride 106 mmol/L (98-107); Creatinine, Serum 0.64 mg/dL (0.55-1.02); EST Glomerular Filtration Rate 104 mL/min (>60); Est Glom Filt Rate - Afr Amer 126 mL/min (>60); Estimated Creatinine Clearance 107.26 ml/min; Globulin 4.2 g/dL (2.2-4.2); Glucose 109 mg/dL (74-106); Potassium 4.1 mmol/L (3.5-5.1); Protein, Total 7.8 g/dL (6.4-8.2); Sodium Level 139 mmol/L (136-145)
[2021-07-31 20:41] LABS: Bacteria 0 SEEN /hpf (None Seen); Mucous, Urine 0 SEEN /hpf (<or=2+); White Blood Cells 0 SEEN /hpf (0-5)
[2021-07-31 20:46] LABS: Color, Urine Yellow (Yellow); Glucose, Dipstick Normal (Normal); Ketone-Dipstick Negative (Negative); Leukocyte Esterase-Dipstick Negative /ul (Negative); Nitrite-Dipstick Negative (Negative); Occult Blood-Urine 25 /ul (Negative); Protein-Dipstick 15 mg/dl (Negative); Specific Gravity, Urine 1.015 (1.002-1.030); Urine Bilirubin Dipstick Negative (Negative); Urine Clarity Sl. Cloudy (Clear); Urine Urobilinogen Normal (Normal)
--- NOTE | 2021-07-31 20:54 | HP.PCM.HOS_ITS ---
HPI - General General Date of Admission: 07/31/21 Date of Service: 07/31/21 Chief Complaint: Requesting alcohol detox. HPI Narrative QUINTIN CEE, is a 51 F who presents seeking alcohol withdrawal treatment. Patient's last drink was around three. Patient states that she drinks about box of wine, equivalent to four bottles of wine either that or two bottles of liquor per day. Patient was here in May but then wind up in [facility] for 40 days for C. difficile. Of note patient had a colitis last time she was here and did have a negative C. difficile test. She was discharged roughly 3 weeks ago and then immediately started drinking again. She presents with an alcohol level of 353. Patient feeling very anxious this at this time. During patient's last hospitalization she minimizes how much alcohol she drank and then started going through acute alcohol withdrawal. [facility] Medical History Alcohol abuse Alcohol abuse Anxiety and depression Asthma CAD (coronary artery disease) Cervical neuropathy Depression Dissection, vertebral artery Fibromyalgia HTN (hypertension) Hypertension Kidney stones Lupus nephritis Lupus vasculitis Myocardial infarct Pancreatitis Seizures Systemic lupus erythematosus Thrombocytopenia TIA (transient ischemic attack) Home Medications hydroxychloroquine 200 mg PO BID 09/26/20 [History Last Taken 06/05/21] pantoprazole [Protonix] 40 mg PO BID 03/17/21 [History Last Taken 06/04/21] atorvastatin 20 mg PO QHS 05/06/21 [History Last Taken 06/02/21] amlodipine 5 mg PO DAILY 05/20/21 [History Last Taken 06/02/21] hydroxyzine HCl 50 mg PO Q8H PRN PRN 05/20/21 [History Last Taken Unknown] promethazine 25 mg PO Q6H PRN PRN #10 tablet 05/20/21 [Rx Last Taken Unknown] ergocalciferol (vitamin D2) 1,250 mcg PO SA 06/05/21 [History Last Taken 05/30/21] methotrexate sodium 15 mg PO WESA 06/05/21 [History Last Taken 06/03/21] sertraline 150 mg PO DAILY 06/05/21 [History Last Taken 06/02/21] potassium chloride [K-Tab] 40 meq PO DAILY 7 Days #14 tab 06/10/21 [Rx Last Taken Unknown] Allergy/AdvReac Type Severity Reaction Status Date / Time metoclopramide HCl Allergy anxious Verified 07/31/21 17:43 [From Reglan] peanut Allergy Anaphylaxis Verified 07/31/21 17:43 Sulfa (Sulfonamide Allergy Hives Verified 07/31/21 17:43 Antibiotics) prednisone AdvReac psychosis Verified 07/31/21 17:43 prochlorperazine AdvReac anxious Verified 07/31/21 17:43 [From Compazine] Family History Father Diabetes CAD (coronary artery disease) Melanoma Mother Rheumatoid arthritis Melanoma Other Multiple sclerosis Surgical History H/O cervical spine surgery H/O knee surgery History of cholecystectomy History of hysterectomy S/P appendectomy Social History household members: none housing: apartment Smoking Status: Never smoker alcohol intake: current alcohol intake frequency: 3 or more drinks per day Alcohol type: hard liquor details: Patient reports only recently 2 nicholas[employer] hard lemonades, last at midnight. substance use type: does not use ROS ROS Narrative No further diarrhea. States that her stool she was being treated for C. difficile was yellow at are consistent now. She has fallen due to intoxication and has sustained a right upper extremity rotator cuff tear. All review of systems were negative except as mentioned above in the history of present illness and the other review of systems. Vital Signs Vital Signs Vital Signs: 07/31/21 17:43 Temperature 36.7 C Temperature Source Temporal Pulse Rate 105 H Respiratory Rate 18 Blood Pressure 154/134 H Blood Pressure Mean 140 Pulse Ox 95 Oxygen Delivery Method Room Air Weight Weight: 98.1 kg Body Mass Index (BMI) 32.8 Physical Exam Const alert General Appearance: cooperative HEENT normocephalic Resp normal respiratory effort, no retractions, no use of accessory muscles and clear to auscultation bilaterally Cardio regular rate, regular rhythm, S1 normal heart sound and S2 normal heart sound GI normal to inspection, nondistended, normoactive bowel sounds, soft to palpation, non-tender and non-distended Extremity normal to inspection Neuro Sensorium / Orientation: awake and alert Psych Mood & Affect: anxious Results Lab / Micro Data Result Diagrams: 07/31/21 18:50 07/31/21 18:50 Labs: Laboratory Results - last 24 hr 07/31/21 18:50: WBC 5.2, RBC 4.32, Hgb 13.1, Hct 38.7, MCV 89.6, MCH 30.3, MCHC 33.9, RDW Std Deviation 52.4 H, RDW Coeff of Leeann 15.8 H, Plt Count 312, MPV 9.4, Immature Gran % (Auto) 0.400, Neut % (Auto) 46.8 L, Lymph % (Auto) 44.0 H, [place] % (Auto) 6.8, Eos % (Auto) 1.0, Baso % (Auto) 1.0, Absolute Neuts (auto) 2.4, Absolute Lymphs (auto) 2.27, Nucleated RBC % 0 07/31/21 18:50: Sodium 139, Potassium 4.1, Chloride 106, Carbon Dioxide 23.0, Anion Gap 10, BUN 7, Creatinine 0.64, Estim Creat Clear Calc 107.26, Est GFR (MDRD) Af Amer 126, Est GFR (MDRD) Non-Af 104, BUN/Creatinine Ratio 10.9, Glucose 109 H, Calcium 8.7, Total Bilirubin 0.30, AST 31, ALT 26, Alkaline Phosphatase 100, Total Protein 7.8, Albumin 3.6, Globulin 4.2, Albumin/Globulin Ratio 0.9 07/31/21 18:50: Ethyl Alcohol 353.0 H* 07/31/21 20:33: Urine Color Yellow, Urine Clarity Sl. Cloudy, Urine pH 5.0, Ur Specific [place] 1.015, Urine Protein 15 H, Urine Glucose (UA) Normal, Urine Ketones Negative, Urine Occult Blood 25 H, Urine Nitrite Negative, Urine Bilirubin Negative, Urine Urobilinogen Normal, Ur Leukocyte Esterase Negative Assessment & Plan Assessment/Plan (1) Alcohol dependence with acute alcoholic intoxication: QUALIFIERS: Complication of substance-induced condition: uncomplicated Qualified Code(s): F10.220 - Alcohol dependence with intoxication, uncomplicated PLAN: 1. Acute alcohol intoxication * She consumes large quantities of alcohol and will invariably go into alcohol withdrawal as was evidenced during her last hospitalization here. * Patient be started on phenobarbital plus other agents to help with other somatic complaints. * Addiction medicine to facilitate the discharge program 2. Right rotator cuff tear * Due to recent falls. * Patient had a positive empty can test on her right * Patient will need to follow-up with physical therapy and if still has issues and to follow-up with Ortho he takes surgery. 3. Lupus * Continue with hydroxychloroquine, methotrexate 4. VTE prophylaxis: Low risk not indicated at this time. 5. Recent C. difficile colitis * Has completed treatment. Of note as mentioned earlier that her C. difficile toxin here was negative. Though she states it was positive over at [place] and she was hospitalized for 40 days. 6. Possible personality disorder * During last hospitalization, patient minimize how much she drank and then it became clear that she consumed large amount of alcohol when she clearly started going through acute alcohol withdrawal. * Patient has been very upfront about how much she is currently drinking. I informed her and her last hospitalization that she just needs to be honest with us so that we can effectively take care of her. She expresses that she will be honest with us during her hospitalization. * This was prefaced by the fact that she asked her to step out of the room when I interviewed her. Charges/Coding Visit Charges Inpatient E&M: 72699 Init Hosp L2
[2021-07-31 20:56] VITALS: BP 130/72; PULSE 94; RESP 17; TEMP 36.8; O2SAT 97
[2021-07-31 20:58] LABS: Red Blood Cells-Urine 0-5 SEEN /hpf (0-5); Squamous Epithelial Cells - UA 0-5 SEEN /hpf (5-10)
[2021-07-31 21:00] VITALS: RESP 17
[2021-07-31] MEDS: Ketorolac 15 MG/ML Vial IV (21:10)
--- NOTE | 2021-07-31 21:12 | PCS.PANDOC ---
PANDEMIC DOCUMENTATION INITIATED: Date: 05/11/2021 Time: 190
--- NOTE | 2021-07-31 22:17 | PCS.PANDOC ---
PANDEMIC DOCUMENTATION INITIATED: Date: 07/31/2021 Time: 0
[2021-07-31 22:24] VITALS: BMI 19.0
[2021-07-31 22:39] VITALS: BP 116/85; PULSE 102; RESP 16; TEMP 36.8; O2SAT 100
[2021-07-31] MEDS: Pantoprazole Sodium 40 MG Tablet PO (23:07)
[2021-07-31] MEDS: Hydroxychloroquine 200 MG Tablet PO (23:07)
[2021-07-31] MEDS: traZODone 100 MG Tablet PO (23:08)
[2021-07-31] MEDS: Gabapentin 300 MG Capsule PO (23:08)
[2021-07-31] MEDS: Atorvastatin Calcium 20 MG Tablet PO (23:08)
[2021-07-31] MEDS: Phenobarbital 32.4 MG Tablet 64.8 MG PO (23:08)
[2021-08-01] MEDS: Phenobarbital 32.4 MG Tablet 64.8 MG PO ×6 (03:59→22:54)
[2021-08-01] MEDS: Acetaminophen 500 MG Tablet PO (03:59)
[2021-08-01] MEDS: hydrOXYzine PAM 25 MG Capsule 50 MG PO ×3 (04:00→21:14)
[2021-08-01 04:01] VITALS: BP 107/97; PULSE 112; RESP 18; TEMP 36.3; O2SAT 97
[2021-08-01] MEDS: Potassium Chloride Oral Tablet 20 MEQ 40 MEQ PO (07:10)
[2021-08-01] MEDS: Gabapentin 300 MG Capsule PO ×2 (07:10→15:28)
[2021-08-01] MEDS: Thiamine Hydrochloride 100 MG Tablet PO (07:10)
[2021-08-01] MEDS: Folic Acid 1 MG Tablet PO (07:10)
--- NOTE | 2021-08-01 07:32 | PN.HOSP_ITS ---
Subjective Subjective Patient is a 51-year-old lady with history of chronic alcohol abuse admitted with acute alcohol withdrawal Objective Data Objective Data Vital Signs: Vital Signs Temp Pulse Resp BP Pulse Ox 97.3 F L 112 H 18 107/97 H 97 08/01/21 04:01 08/01/21 04:01 08/01/21 04:01 08/01/21 04:01 08/01/21 04:01 Oxygen Delivery Method Room Air Weight: 56.699 kg Body Mass Index (BMI) 19.0 Lab / Micro Data Result Diagrams: 07/31/21 18:50 07/31/21 18:50 Labs: Laboratory Results - last 24 hr 07/31/21 18:50: WBC 5.2, RBC 4.32, Hgb 13.1, Hct 38.7, MCV 89.6, MCH 30.3, MCHC 33.9, RDW Std Deviation 52.4 H, RDW Coeff of Leeann 15.8 H, Plt Count 312, MPV 9.4, Immature Gran % (Auto) 0.400, Neut % (Auto) 46.8 L, Lymph % (Auto) 44.0 H, [place] % (Auto) 6.8, Eos % (Auto) 1.0, Baso % (Auto) 1.0, Absolute Neuts (auto) 2.4, Absolute Lymphs (auto) 2.27, Nucleated RBC % 0 07/31/21 18:50: Sodium 139, Potassium 4.1, Chloride 106, Carbon Dioxide 23.0, Anion Gap 10, BUN 7, Creatinine 0.64, Estim Creat Clear Calc 107.26, Est GFR (MDRD) Af Amer 126, Est GFR (MDRD) Non-Af 104, BUN/Creatinine Ratio 10.9, Gl ucose 109 H, Calcium 8.7, Total Bilirubin 0.30, AST 31, ALT 26, Alkaline Phosphatase 100, Total Protein 7.8, Albumin 3.6, Globulin 4.2, Albumin/Globulin Ratio 0.9 07/31/21 18:50: Ethyl Alcohol 353.0 H* 07/31/21 20:33: Urine Color Yellow, Urine Clarity Sl. Cloudy, Urine pH 5.0, Ur Specific [place] 1.015, Urine Protein 15 H, Urine Glucose (UA) Normal, Urine Ketones Negative, Urine Occult Blood 25 H, Urine Nitrite Negative, Urine Bilirubin Negative, Urine Urobilinogen Normal, Ur Leukocyte Esterase Negative, Urine RBC 0-5 SEEN, Urine WBC 0 SEEN, Ur Squamous Epith Cells 0-5 SEEN, Urine Bacteria 0 SEEN, Urine Mucus 0 SEEN Physical Exam Narrative GENERAL: cooperative HEENT: Atraumatic; EYES; Anicteric, Normal Conjunctiva NECK; supple, normal thyroid, RESPIRATORY: Diminished to auscultation CARDIOVASCULAR: Regular S1 S2, GI: soft, normoactive bowel sounds, : No Renal angle tenderness; EXTREMITIES: No edema, no clubbing, MUSCULOSKELETAL: no muscle waisting NEURO: Awake; no lateralizing signs. SKIN: No Rash PSYCH; Flat affect Assessment & Plan Assessment/Plan (1) Alcohol dependence with acute alcoholic intoxication: QUALIFIERS: Complication of substance-induced condition: uncomplicated Qualified Code(s): F10.220 - Alcohol dependence with intoxication, uncomplicated PLAN: Patient is a 51-year-old lady with history of chronic alcohol abuse admitted with acute alcohol withdrawal 1. Acute alcohol withdrawal ?Patient has been admitted to regular nursing floor currently undergoing stabilization using phenobarb taper 2. Right rotator cuff tear ?Requested PT OT eval with plans for patient to follow-up with Ortho as outpatient 3. Lupus ?Patient is on hydroxychloroquine as well as methotrexate did continue 4. Recent C. difficile colitis ?Patient was treated appropriately 5. Dyslipidemia -Patient is on statin therapy, continued at home dose 6. GERD ?On Protonix 7. Depression with anxiety ?Patient is on sertraline 8. DVT prophylaxis -low risk did encourage early ambulation Charges/Coding Visit Charges Inpatient E&M: 79582 [facility] Hosp L3
[2021-08-01 08:58] VITALS: BP 105/76; PULSE 94; RESP 16; TEMP 36.7; O2SAT 98
[2021-08-01] MEDS: Ondansetron 8 MG Tablet PO (09:03)
[2021-08-01] MEDS: Dicyclomine 10 MG Capsule 20 MG PO (09:03)
[2021-08-01] MEDS: amLODIPine 5 MG Tablet PO (09:04)
[2021-08-01] MEDS: Pantoprazole Sodium 40 MG Tablet PO ×2 (09:04→21:15)
[2021-08-01] MEDS: Sertraline 100 MG Tablet 150 MG PO (09:05)
[2021-08-01] MEDS: Methotrexate 2.5 MG Tablet 15 MG PO (09:06)
[2021-08-01] MEDS: Hydroxychloroquine 200 MG Tablet PO ×2 (09:07→21:15)
--- NOTE | 2021-08-01 10:46 | CASEMGMT ---
SOCIAL WORK Referral Source: CM Reason for Consult: RAMP Patient here for alcohol withdrawal management. Dariana, Addiction Therapist notified and will be in this afternoon to assess patient. Cheryle Callahan, HARNESS MENDER, TURRET LATHE MACHINIST
[2021-08-01 11:25] VITALS: BP 113/89; PULSE 102; RESP 16; TEMP 36.9; O2SAT 98
[2021-08-01] MEDS: proMETHazine 25 MG Tablet PO ×2 (11:27→21:15)
--- NOTE | 2021-08-01 11:53 | NURSING ---
pt informed male visitor phoned in, identified himself as pt spouse with his name. pt aware of no visitors/ no phone calls and spouse the same. pt states that is good, i don't want him here anyways. he can call in but i don't want him here.
[2021-08-01 15:23] VITALS: BP 116/78; PULSE 92; RESP 18; TEMP 36.6; O2SAT 97
[2021-08-01] MEDS: Ergocalciferol 1.25 MG (50, 000 UNIT) Capsule PO (15:28)
[2021-08-01 18:46] VITALS: BP 108/72; PULSE 101; RESP 18; TEMP 36.5; O2SAT 97
[2021-08-01] MEDS: traZODone 100 MG Tablet PO (21:14)
[2021-08-01] MEDS: Atorvastatin Calcium 20 MG Tablet PO (21:15)
[2021-08-01 21:34] VITALS: BP 108/70; PULSE 81; RESP 16; TEMP 37; O2SAT 98
[2021-08-02] MEDS: Phenobarbital 32.4 MG Tablet 64.8 MG PO ×6 (02:25→22:51)
[2021-08-02 03:34] VITALS: BP 99/70; PULSE 80; RESP 16; TEMP 36.6; O2SAT 100
--- NOTE | 2021-08-02 07:37 | PCM.PN.HOSP ---
Subjective Subjective Patient seen has tolerated the phenobarb taper well so far Objective Data Objective Data Vital Signs: Vital Signs Temp Pulse Resp BP Pulse Ox 97.8 F 80 16 99/70 100 08/02/21 03:34 08/02/21 03:34 08/02/21 03:34 08/02/21 03:34 08/02/21 03:34 Oxygen Delivery Method Room Air Weight: 56.699 kg Body Mass Index (BMI) 19.0 Lab / Micro Data Result Diagrams: 07/31/21 18:50 07/31/21 18:50 Physical Exam Narrative GENERAL: cooperative HEENT: Atraumatic; EYES; Anicteric, Normal Conjunctiva NECK; supple, normal thyroid, RESPIRATORY: Diminished to auscultation CARDIOVASCULAR: Regular S1 S2, GI: soft, normoactive bowel sounds, : No Renal angle tenderness; EXTREMITIES: No edema, no clubbing, MUSCULOSKELETAL: no muscle waisting NEURO: Awake; no lateralizing signs. SKIN: No Rash PSYCH; Flat affect Assessment & Plan Assessment/Plan (1) Alcohol dependence with acute alcoholic intoxication: QUALIFIERS: Complication of substance-induced condition: uncomplicated Qualified Code(s): F10.220 - Alcohol dependence with intoxication, uncomplicated PLAN: Patient is a 51-year-old lady with history of chronic alcohol abuse admitted with acute alcohol withdrawal 1. Acute alcohol withdrawal ?Patient has been admitted to regular nursing floor currently undergoing stabilization using phenobarb taper ?08/02/2021; patient has tolerated the phenobarb taper well so far. 2. Right rotator cuff tear ?Requested PT OT eval with plans for patient to follow-up with Ortho as outpatient 3. Lupus ?Patient is on hydroxychloroquine as well as methotrexate did continue 4. Recent C. difficile colitis ?Patient was treated appropriately 5. Dyslipidemia -Patient is on statin therapy, continued at home dose 6. GERD ?On Protonix 7. Depression with anxiety ?Patient is on sertraline 8. DVT prophylaxis -low risk did encourage early ambulation Charges/Coding Visit Charges Inpatient E&M: 09895 Subs Hosp L2
[2021-08-02 08:12] VITALS: BP 100/67; PULSE 94; RESP 16; TEMP 36.8; O2SAT 97
[2021-08-02] MEDS: hydrOXYzine PAM 25 MG Capsule 50 MG PO ×2 (08:16→18:35)
[2021-08-02] MEDS: Folic Acid 1 MG Tablet PO (08:17)
[2021-08-02] MEDS: Ondansetron 8 MG Tablet PO (08:17)
[2021-08-02] MEDS: Hydroxychloroquine 200 MG Tablet PO ×2 (08:17→20:43)
[2021-08-02] MEDS: Potassium Chloride Oral Tablet 20 MEQ 40 MEQ PO (08:17)
[2021-08-02] MEDS: Pantoprazole Sodium 40 MG Tablet PO ×2 (08:17→20:43)
[2021-08-02] MEDS: Thiamine Hydrochloride 100 MG Tablet PO (08:17)
[2021-08-02] MEDS: Sertraline 100 MG Tablet 150 MG PO (08:17)
[2021-08-02] MEDS: Dicyclomine 10 MG Capsule 20 MG PO ×2 (08:17→14:25)
[2021-08-02] MEDS: proMETHazine 25 MG Tablet PO ×2 (11:28→18:35)
--- NOTE | 2021-08-02 11:46 | ADDICTION ---
This worker met with pt. to complete ASAM, AUDIT, DUDIT, MSE, AD, D/C plan. Pt. cooperative with ASAM. She reports living alone, she is but does not live with . Pt. has triplet children which she does not see. Minimal sober support, mom is only support at this time. 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 She has a counselor at [facility] (Olga Lidia Francis). Pt. will follow-up with Olga Lidia Francis to schedule appt. Plans on IOP treatment. Mother will assist with transportation.
[2021-08-02 14:23] VITALS: BP 105/67; PULSE 98; RESP 18; TEMP 36.9; O2SAT 98
[2021-08-02] MEDS: Acetaminophen 500 MG Tablet PO ×2 (14:25→20:48)
[2021-08-02] MEDS: Gabapentin 300 MG Capsule PO (14:27)
[2021-08-02 18:33] VITALS: BP 109/73; PULSE 92; RESP 18; TEMP 36.9; O2SAT 98
[2021-08-02] MEDS: Atorvastatin Calcium 20 MG Tablet PO (20:43)
[2021-08-02] MEDS: traZODone 100 MG Tablet PO (20:48)
[2021-08-02 20:50] VITALS: BP 113/67; PULSE 99; RESP 16; TEMP 36.9; O2SAT 99
[2021-08-03 02:50] VITALS: BP 98/64; PULSE 84; RESP 15; TEMP 36.6; O2SAT 99
[2021-08-03] MEDS: Phenobarbital 32.4 MG Tablet 64.8 MG PO ×2 (02:58→06:31)
[2021-08-03] MEDS: Thiamine Hydrochloride 100 MG Tablet PO (07:42)
[2021-08-03] MEDS: Potassium Chloride Oral Tablet 20 MEQ 40 MEQ PO (07:42)
[2021-08-03] MEDS: Folic Acid 1 MG Tablet PO (07:42)
[2021-08-03 07:54] VITALS: BP 93/60; PULSE 94; RESP 16; TEMP 36.9; O2SAT 99
[2021-08-03] MEDS: Pantoprazole Sodium 40 MG Tablet PO (09:14)
[2021-08-03] MEDS: Hydroxychloroquine 200 MG Tablet PO (09:14)
[2021-08-03] MEDS: Sertraline 100 MG Tablet 150 MG PO (09:14)
[2021-08-03] MEDS: proMETHazine 25 MG Tablet PO (09:17)
[2021-08-03] MEDS: hydrOXYzine PAM 25 MG Capsule 50 MG PO (09:17)
--- NOTE | 2021-08-03 10:52 | ADDICTION ---
TW met with patient to check in and provide supportive counseling. TW called and set up outpatient therapist appointment for 08/07/21 at 12PM with her therapist, Olga Lidia. Pt inquired about IOP and TW provided additional information and will inform her therapist that she needs a referral for IOP.
--- NOTE | 2021-08-03 11:52 | PCM.DC.SUM ---
Providers Date of Admission: 07/31/21 Primary Care Physician: Dr. Froylan Grant MD Reason For Visit: ALCOHOL DEPENDENCE WITH ACUTE ALCOHOL Diagnosis Discharge Diagnosis (1) Alcohol dependence with acute alcoholic intoxication: Status: Acute Code(s): F10.229 - Alcohol dependence with intoxication, unspecified Qualifiers: Complication of substance-induced condition: uncomplicated Qualified Code(s): F10.220 - Alcohol dependence with intoxication, uncomplicated Medications at Discharge Home Medications hydroxychloroquine 200 mg PO BID 09/26/20 pantoprazole [Protonix] 40 mg PO BID 03/17/21 atorvastatin 20 mg PO QHS 05/06/21 hydroxyzine HCl 50 mg PO Q8H PRN PRN 05/20/21 promethazine 25 mg PO Q6H PRN PRN #10 tablet 05/20/21 ergocalciferol (vitamin D2) 1,250 mcg PO SA 06/05/21 methotrexate sodium 15 mg PO SA 06/05/21 sertraline 150 mg PO DAILY 06/05/21 famotidine 40 mg PO BID 07/31/21 Hospital Course Operations None Procedures None Summary of Care Provided Minutes Spent on Discharge: 28 Hospital Course: Amaya Bustos is a 51-year-old white female who presented to the emergency department at [facility] on 07/31/2021 requesting treatment for acute alcohol withdrawal. On the day of admission she reported her last drink was approximately 3 and that she was drinking approximately one box of wine or 2 bottles of liquor per day. She had multiple admissions for acute alcohol detox and pancreatitis most recently. She was recently hospitalized at [facility] for acute C. difficile and was discharged roughly 3 weeks ago and started drinking again at that time. On admission her alcohol level was 353. She was admitted and detox with phenobarbital and placed on thiamine and folate. Supportive medications were utilized for symptoms as well. She was seen by addiction medicine and a discharge plan for outpatient treatment has been arranged. She was discharged on 08/03/2021 in stable condition had no further signs of alcohol withdrawal. Discharge diagnoses: Acute alcohol withdrawal Lupus Recent C. difficile colitis Hyperlipidemia GERD Depression/anxiety Right rotator cuff tear Physical Exam Const alert, oriented x3, no apparent distress, average body habitus and no limitations General Appearance: cooperative, comfortable, well kempt and well developed Orientation / Consciousness: awake, oriented to person, oriented to place and oriented to time Exam Limitations: no limitations HEENT normocephalic, head/scalp atraumatic, hearing grossly normal bilaterally and moist oral mucous membranes Resp normal respiratory effort, no retractions, no use of accessory muscles and clear to auscultation bilaterally Auscultation: Negative for crackles, rales, rhonchi or wheezes Cardio regular rate, regular rhythm, S1 normal heart sound, S2 normal heart sound, no murmurs, no rub, no gallops, no clicks and no JVD GI normal to inspection, nondistended, normoactive bowel sounds, soft to palpation, non-tender and non-distended Extremity normal to inspection, full ROM and no clubbing, cyanosis or edema Skin no rashes or lesions noted, no wounds, skin turgor normal and no jaundice Neuro oriented x3 and CN's II-XII intact bilaterally Sensorium / Orientation: awake and alert Motor Exam: strength 5/5 throughout Psych affect normal Weight / BMI Weight Weight: 56.699 kg Body Mass Index (BMI) 19.0 ABG / Lab / Microbiology Data Result Diagrams: 07/31/21 18:50 07/31/21 18:50 D/C Instructions Discharge Diet: No restrictions Meaningful Use Info Meaningful Use Diagnoses (Choose all that apply): None applicable Discharge Plan Admission Admit Date/Time: 07/31/21 20:49 Primary Reason for Your Visit: Acute Alcohol withdrawal Attending Provider: Anabel Beach Primary Care Provider: Froylan Grant Discharge Orders/Prescriptions Prescriptions: Continued hydroxychloroquine 200 MG tablet 200 mg PO BID RF: 0 pantoprazole [Protonix] 40 mg Tablet,Delayed Release (Dr/Ec) 40 mg PO BID RF: 0 atorvastatin 20 MG tablet 20 mg PO QHS RF: 0 hydroxyzine HCl 50 mg Tablet 50 mg PO Q8H PRN PRN (Reason: Anxiety) RF: 0 promethazine 25 MG tablet 25 mg PO Q6H PRN PRN (Reason: Nausea) Qty: 10 RF: 0 sertraline 100 mg Tablet 150 mg PO DAILY RF: 0 methotrexate sodium 2.5 mg Tablet 15 mg PO SA RF: 0 ergocalciferol (vitamin D2) 1,250 mcg (50,000 unit) Capsule 1,250 mcg PO SA RF: 0 famotidine 40 mg tablet 40 mg PO BID RF: 0 Referrals / Follow Up: Froylan Grant MD [Primary Care Provider] - In 1 Week (Hospital follow-up) Disposition Disposition (needs filled in before D/C Order can be placed): Home, Self Care Charges/Coding Visit Charges Inpatient E&M: 22396 Disch Hosp
[2021-08-03 12:49] VITALS: BP 109/73; PULSE 82; RESP 16; TEMP 37.1; O2SAT 95
== END 2021-08-03 13:09 | disposition home or self-care (01) | DRG 775 ==
LOC: ED 20:26 → MS3 20:57
PROVIDERS: Emergency Provider Emergency Medicine; PCP Internal Medicine; Visit Provider Internal Medicine
DX: F10.220 Alcohol dependence with intoxication, uncomplicated (principal); F10.239 Alcohol dependence with withdrawal, unspecified; E78.5 Hyperlipidemia, unspecified; K21.9 Gastro-esophageal reflux disease without esophagitis; F32.A Depression, unspecified; F41.9 Anxiety disorder, unspecified; S46.011D Strain of muscle(s) and tendon(s) of the rotator cuff of right shoulder, subsequent encounter; W18.30XD Fall on same level, unspecified, subsequent encounter; Y90.8 Blood alcohol level of 240 mg/100 ml or more; Z86.19 Personal history of other infectious and parasitic diseases
CPT/HCPCS: 80053; 81001; 82077; 85025; 99285; J7030; A4216; J2405; J8610

== ENCOUNTER 2021-08-17 09:27 | Inpatient (IN) | payer MEDICAID, SELFPAY ==
[2021-08-17 09:29] VITALS: BP 123/90; PULSE 104; RESP 16; TEMP 36.9; O2SAT 98; BMI 19.0
--- NOTE | 2021-08-17 09:54 | CT_ITS ---
STUDY: CT BRAIN WITHOUT CONTRAST REASON FOR EXAM: Female, 51 years old. Injury, pain, history of carotid dissection RADIATION DOSAGE (If Supplied By Facility): CTDIvol = ( 44.99 ) mGy, DLP = ( 779.24 ) mGycm TECHNIQUE: Transaxial CT imaging of the brain was performed without administration of intravenous contrast material. Individualized dose optimization techniques were used for this CT. COMPARISON: 07/23/2021 FINDINGS: Normal soft tissue structures. Normal calvarium. Normal size ventricles and extra-axial spaces for the patient''s age. Normal white matter tracts of the cerebral hemispheres. Normal basal ganglia and thalami. Normal brainstem. Normal cerebellum. There is no intracranial hemorrhage. There are no findings of an acute ischemic infarction. Normal visualized paranasal sinuses. CT/Brain/Head without Contrast IMPRESSION: 1. No acute intracranial hemorrhage or mass effect. Stable. Electronically Signed: Vitaly Lundberg MD (Brooks) at 10:35 EST , Service support ,
[2021-08-17] MEDS: Ondansetron ODT 4 MG Tablet PO (10:03)
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
[2021-08-17 11:35] LABS: Absolute Lymphocyte Count 1.37 X10^3/uL (0.83-4.51); Basophil# 0.06 X10^3/uL; Eosinophil# 0.12 X10^3/uL; Eosinophils% 4.1 % (0-5); Hematocrit 33.8 % (37-47); Hemoglobin 11.5 g/dL (12.0-15.0); Lymphocyte # 1.37 X10^3/ul (0.83-4.51); Lymphocyte % 46.8 % (19-41); Mean Corpuscular Volume 88.3 fL (81-99); Mean Platelet Vol. 9.1 fl (6.2-12.0); Monocyte# 0.33 X10^3/uL; Monocyte% 11.3 % (0-10); NRBC Flagged by Analyzer 0 % (0-5); Neutrophil # 1.04 X10^3/uL (2.7-7.7); Neutrophil % 35.5 % (47-70); Platelet Count 335 K/mm3 (150-450); RBC Distribution Width SD 51.3 fl (35.1-43.9); Red Blood Count 3.83 M/mm3 (4.2-5.4); White Blood Count 2.9 K/mm3 (4.4-11.0)
[2021-08-17 11:52] LABS: ALB/GLOB Ratio 0.6 RATIO (0.9-2.4); AST(SGOT) 68 U/L (15-37); Alanine Aminotransfer ALT/SGPT 92 U/L (13-56); Albumin, Serum 2.5 g/dL (3.2-5.0); Alkaline Phosphatase 114 U/L (45-117); Anion Gap 8 (5-15); BUN 2 mg/dL (7-18); BUN/Creat Ratio 3.4 RATIO (10-20); Calcium,Total 8.2 mg/dL (8.5-10.1); Chloride 98 mmol/L (98-107); Creatinine, Serum 0.59 mg/dL (0.55-1.02); EST Glomerular Filtration Rate 116 mL/min (>60); Est Glom Filt Rate - Afr Amer 140 mL/min (>60); Estimated Creatinine Clearance 103.24 ml/min; Globulin 4.4 g/dL (2.2-4.2); Glucose 101 mg/dL (74-106); Potassium 3.2 mmol/L (3.5-5.1); Protein, Total 6.9 g/dL (6.4-8.2); Sodium Level 132 mmol/L (136-145)
[2021-08-17 11:52] LABS: Amphetamine Urine VISTA NEGATIVE (<1000 ng/mL); Barbiturate Urine VISTA POSITIVE (< 200 ng/mL); Benzodiazepine Urine VISTA NEGATIVE (< 200 ng/mL); Cocaine Urine VISTA NEGATIVE (< 300 ng/mL); Ecstacy Urine VISTA NEGATIVE (< 500 ng/mL); Methadone Urine VISTA NEGATIVE (< 300 ng/mL); PCP Urine VISTA NEGATIVE (< 25 ng/mL); THC Urine VISTA NEGATIVE (< 50 ng/mL); Vista UDS pH Range 7
[2021-08-17 12:00] VITALS: BP 126/75; PULSE 78; RESP 13; O2SAT 97
[2021-08-17 12:04] LABS: Bacteria 0 SEEN /hpf (None Seen); Mucous, Urine 0 SEEN /hpf (<or=2+); White Blood Cells 0 SEEN /hpf (0-5)
[2021-08-17 12:07] LABS: Color, Urine Yellow (Yellow); Glucose, Dipstick Normal (Normal); Ketone-Dipstick Negative (Negative); Leukocyte Esterase-Dipstick Negative /ul (Negative); Nitrite-Dipstick Negative (Negative); Occult Blood-Urine 10 /ul (Negative); Protein-Dipstick Negative (Negative); Specific Gravity, Urine 1.005 (1.002-1.030); Urine Bilirubin Dipstick Negative (Negative); Urine Clarity Sl. Cloudy (Clear); Urine Urobilinogen Normal (Normal)
[2021-08-17 12:15] LABS: Red Blood Cells-Urine 0-5 SEEN /hpf (0-5); Squamous Epithelial Cells - UA 0-5 SEEN /hpf (5-10)
[2021-08-17 13:46] VITALS: BP 126/75; PULSE 78; RESP 13; TEMP 36.9; O2SAT 97
[2021-08-17 14:33] VITALS: BMI 19.4
[2021-08-17 14:42] VITALS: BP 123/94; PULSE 97; RESP 16; TEMP 36.6; O2SAT 96
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
[2021-08-17] MEDS: Phenobarbital 32.4 MG Tablet 64.8 MG PO ×3 (15:16→23:54)
[2021-08-17] MEDS: proMETHazine 25 MG Tablet PO (17:21)
[2021-08-17] MEDS: Creon 24,000 unit DR Capsule 2 CAP PO (17:22)
[2021-08-17] MEDS: Atorvastatin Calcium 20 MG Tablet PO (20:01)
[2021-08-17] MEDS: Pantoprazole Sodium 40 MG Tablet PO (20:01)
[2021-08-17] MEDS: Acetaminophen 500 MG Tablet PO (20:01)
[2021-08-17 20:03] VITALS: BP 118/75; PULSE 105; RESP 16; TEMP 37.5; O2SAT 98
[2021-08-17] MEDS: Famotidine 20 MG Tablet 40 MG PO (20:03)
[2021-08-17] MEDS: hydrOXYzine PAM 25 MG Capsule 50 MG PO (20:16)
[2021-08-17 20:23] VITALS: PULSE 105
[2021-08-17] MEDS: Ondansetron 8 MG Tablet PO (21:19)
[2021-08-17] MEDS: traZODone 100 MG Tablet PO (23:54)
[2021-08-18 03:21] VITALS: BP 134/79; PULSE 90; RESP 16; TEMP 36.3; O2SAT 98
[2021-08-18] MEDS: Phenobarbital 32.4 MG Tablet 64.8 MG PO ×6 (03:24→22:56)
[2021-08-18] MEDS: Acetaminophen 500 MG Tablet PO ×4 (03:24→22:58)
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
[2021-08-18] MEDS: proMETHazine 25 MG Tablet PO ×2 (07:46→15:11)
[2021-08-18] MEDS: Meclizine HCl 25 MG Tablet PO ×2 (07:46→15:10)
--- NOTE | 2021-08-18 07:50 | PCS.PANDOC ---
PANDEMIC DOCUMENTATION INITIATED: Date: 05/11/2021 Time: 190
[2021-08-18] MEDS: Dicyclomine 10 MG Capsule 20 MG PO ×2 (07:55→17:29)
[2021-08-18] MEDS: Folic Acid 1 MG Tablet PO (08:00)
[2021-08-18] MEDS: hydrOXYzine PAM 25 MG Capsule 50 MG PO ×3 (08:00→17:29)
[2021-08-18] MEDS: Famotidine 20 MG Tablet 40 MG PO ×2 (08:01→20:39)
[2021-08-18] MEDS: Potassium Chloride Oral Tablet 20 MEQ 40 MEQ PO ×2 (08:03→11:06)
[2021-08-18] MEDS: Pantoprazole Sodium 40 MG Tablet PO ×2 (08:04→20:40)
[2021-08-18] MEDS: Creon 24,000 unit DR Capsule 2 CAP PO ×3 (08:05→17:24)
[2021-08-18] MEDS: Thiamine Hydrochloride 100 MG Tablet PO (08:05)
[2021-08-18] MEDS: Sertraline 100 MG Tablet 150 MG PO (08:06)
[2021-08-18 08:15] VITALS: BP 116/79; PULSE 72; RESP 16; TEMP 36.7; O2SAT 98
--- NOTE | 2021-08-18 09:28 | CASEMGMT ---
TIMOTHY notified William, addiction insurance healthcare representative with [employer], that pt is here. JUAN Singer
[2021-08-18] MEDS: Ondansetron 8 MG Tablet PO (11:06)
--- NOTE | 2021-08-18 11:53 | ADDICTION ---
This editorial writer met with PT to conduct ASAM, MSE, AUDIT assessments and to plan for d/c. PT A+Ox4 and participated actively. All assessments completed, faxed to [facility] and placed in PT's chart. [facility]. PT did not indicate a need for transportation post d/c from [facility].
[2021-08-18] MEDS: Loperamide 2 MG Capsule PO (12:13)
[2021-08-18] MEDS: Gabapentin 300 MG Capsule PO (12:13)
[2021-08-18 12:15] VITALS: BP 122/68; PULSE 70; RESP 16; TEMP 36.8; O2SAT 98
[2021-08-18 14:04] LABS: Anion Gap 6 (5-15); BUN 5 mg/dL (7-18); BUN/Creat Ratio 5.5 RATIO (10-20); Calcium,Total 8.6 mg/dL (8.5-10.1); Chloride 100 mmol/L (98-107); Creatinine, Serum 0.91 mg/dL (0.55-1.02); EST Glomerular Filtration Rate 69 mL/min (>60); Est Glom Filt Rate - Afr Amer 84 mL/min (>60); Estimated Creatinine Clearance 68.54 ml/min; Glucose 107 mg/dL (74-106); Magnesium 1.3 mg/dL (1.6-2.6); Phosphorus 3.2 mg/dL (2.5-4.9); Potassium 3.6 mmol/L (3.5-5.1); Sodium Level 136 mmol/L (136-145)
--- NOTE | 2021-08-18 14:17 | NURSING ---
PT C/O HEADACHE & NAUSEA, TYLENOL/PHENERGAN NOT DUE @ THIS TIME - PT OK WITH WAITING UNTIL NEXT DOSE DUE
[2021-08-18 15:14] VITALS: BP 136/82; PULSE 72; RESP 16; TEMP 36.8; O2SAT 99
[2021-08-18 16:14] VITALS: BP 132/85; PULSE 75; RESP 16; TEMP 36.8; O2SAT 98
--- NOTE | 2021-08-18 17:22 | NURSING ---
Patient moved from MS216 to MS317 due to low census. Report given and patient moved at approximately 1700.
[2021-08-18 20:36] VITALS: BP 109/72; PULSE 81; RESP 16; TEMP 37.2; O2SAT 100
[2021-08-18] MEDS: Atorvastatin Calcium 20 MG Tablet PO (20:40)
[2021-08-18] MEDS: traZODone 100 MG Tablet PO (20:40)
[2021-08-19] MEDS: proMETHazine 25 MG Tablet PO (01:15)
[2021-08-19] MEDS: Dicyclomine 10 MG Capsule 20 MG PO ×2 (01:15→16:33)
[2021-08-19 02:30] VITALS: BP 100/66; PULSE 88; RESP 16; TEMP 37.2; O2SAT 100
[2021-08-19] MEDS: Acetaminophen 500 MG Tablet PO ×2 (03:17→13:30)
[2021-08-19] MEDS: Phenobarbital 32.4 MG Tablet 64.8 MG PO ×4 (03:18→16:05)
[2021-08-19] MEDS: Gabapentin 300 MG Capsule PO ×2 (03:18→13:30)
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
[2021-08-19 08:00] VITALS: BP 103/68; PULSE 80; RESP 18; TEMP 36.4; O2SAT 95
[2021-08-19] MEDS: Creon 24,000 unit DR Capsule 2 CAP PO ×3 (08:01→16:34)
[2021-08-19] MEDS: Thiamine Hydrochloride 100 MG Tablet PO (08:02)
[2021-08-19] MEDS: Folic Acid 1 MG Tablet PO (08:02)
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
[2021-08-19] MEDS: Sertraline 100 MG Tablet 150 MG PO (11:10)
[2021-08-19] MEDS: Famotidine 20 MG Tablet 40 MG PO (11:10)
[2021-08-19] MEDS: Pantoprazole Sodium 40 MG Tablet PO (11:11)
--- NOTE | 2021-08-19 12:07 | NURSING ---
Pt states that she has not been aware fully awake when physician visited. Physician into see pt with nurse present. Pt is stating she feels safe to be discharged today. Physician redirected pt that her relapse has been due to her not following up on her treatment as out patient. Pt states that her mother is committed to taking her to her meetings and wants to know what support she has available when she is discharged. Pt is asked for mom phone number and gives the number but immediately states that she does not want her mother to be irritated. She is reminded that its not a matter of irritating her mom but simply to have a follow up discharge plan that is successful for her recovery.
[2021-08-19 13:28] VITALS: BP 103/72; PULSE 85; RESP 18; TEMP 37; O2SAT 96
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
--- NOTE | 2021-08-19 16:08 | EKGRS_ITS ---
Test Reason : CP Blood Pressure : / mmHG Vent. Rate : 084 BPM Atrial Rate : 084 BPM P-R Int : 128 ms QRS Dur : 078 ms QT Int : 378 ms P-R-T Axes : 034 036 047 degrees QTc Int : 446 ms Normal sinus rhythm Normal ECG Confirmed by MENDEZ HICKMAN, BERNARD ([id number]), loan expeditor ANH BEARD ([id number]) on 08/21/2021 11:53:21 AM Referred By: SOCRATES Confirmed By:BERNARD SIMMS MD
[2021-08-19 16:17] VITALS: BP 109/79; PULSE 82; RESP 16; TEMP 36.8; O2SAT 100
--- NOTE | 2021-08-19 16:21 | NURSING ---
Pt semiconductor bonder light stating she is having chest pain. Pt is pointing to her upper rib area bilaterally. She states it is hard to take a deep breath spo2 noted at 98% on room air and respirations at 16. Pt states that this is her pancreatitis and her bounces between it being heart related since she has history in the past. She denies anxiety states that she has panic attacks and this is not it. She also is requesting to have a rapid covid swab done since she does not want to go home and infect anyone. Pt now states that she has vicodin at home and she will take that at home since she will not get any other pain meds. She is asking what is due now bentyl? Pt is redirected that her chest pain is the issue now and an EKG was ordered. EKG done showed normal sinus. Picture of report send to hospitalist. Pt is notified that EKG was normal.
[2021-08-19] MEDS: hydrOXYzine PAM 25 MG Capsule 50 MG PO (16:33)
--- NOTE | 2021-08-19 16:43 | NURSING ---
Pt requested AMA papers and is given she signed them ans is escorted. out.
--- NOTE | 2021-08-20 08:46 | DS.PCM_ITS ---
Providers Date of Admission: 08/17/21 Date of Discharge: 08/19/21 Primary Care Physician: Dr. Froylan Grant MD Reason For Visit: ALCOHOL WITHDRAWL Diagnosis Discharge Diagnosis (1) Alcohol intoxication: Status: Acute Code(s): F10.929 - Alcohol use, unspecified with intoxication, unspecified Qualifiers: Complication of substance-induced condition: uncomplicated Qualified Code(s): F10.920 - Alcohol use, unspecified with intoxication, uncomplicated (2) Benign paroxysmal positional vertigo: Status: Acute Code(s): H81.10 - Benign paroxysmal vertigo, unspecified ear Qualifiers: Laterality: right Qualified Code(s): H81.11 - Benign paroxysmal vertigo, right ear (3) Tympanic membrane rupture: Status: Acute Code(s): H72.90 - Unspecified perforation of tympanic membrane, unspecified ear Qualifiers: Laterality: right Qualified Code(s): H72.91 - Unspecified perforation of tympanic membrane, right ear Medications at Discharge Home Medications hydroxychloroquine 200 mg PO BID 09/26/20 pantoprazole [Protonix] 40 mg PO BID 03/17/21 atorvastatin 20 mg PO QHS 05/06/21 hydroxyzine HCl 50 mg PO Q8H PRN PRN 05/20/21 promethazine 25 mg PO Q6H PRN PRN #10 tablet 05/20/21 ergocalciferol (vitamin D2) 1,250 mcg PO SA 06/05/21 methotrexate sodium 15 mg PO SA 06/05/21 sertraline 150 mg PO DAILY 06/05/21 famotidine 40 mg PO BID 07/31/21 [id number]-[id number] [Creon] 2 cap PO TID 08/17/21 Hospital Course Summary of Care Provided Hospital Course: The patient has history of chronic alcohol use, chronic alcoholic pancreatitis on pancreatic enzyme supplement was admitted for acute alcohol intoxication and later on withdrawal treatment. Patient has history of recurrent admission last 4 to 5 months for acute alcohol withdrawal syndrome, multiple relapses and social issues. The patient was started on phenobarbital based other supportive medications for symptom control. Patient symptoms were controlled. She was advised to stay to complete treatment and need for inpatient alcohol rehab but she declined and refused. Earlier on that day, patient was advised to stay until Tuesday for inpatient alcohol rehab placement but instead to sign AMA the risk of future relapses. The nurse also talked with patient's mother but she was not willing to take the patient for outpatient alc ohol rehab because of her own health risks. Finally, patient signed AMA and left the hospital on 08/19/2021. other medical diagnoses include 1. Alcohol intoxication and request for alcohol withdrawal treatment: Multiple relapses, second time in last 1 month. 2. Benign paroxysmal positional vertigo For treatment of this reassurance is provided. Patient was concerned because she has had a history of vertebral artery dissections. This is clinically appears to be BPPV. advised outpatient ENT evaluation and audiometry. Dizziness got better. 3. Right tympanic membrane rupture: Patient advised outpatient follow-up with ENT. Patient had seen Dr. Maradiaga long time ago. No evidence of otitis media. Physical Exam Narrative Please see his note of the same date. The patient signed AMA on the same date of the progress note, 08/19/2021 Weight / BMI Weight Weight: 128 lb Body Mass Index (BMI) 19.4 ABG / Lab / Microbiology Data Result Diagrams: 08/17/21 11:25 08/18/21 13:18 Meaningful Use Info Meaningful Use Diagnoses (Choose all that apply): None applicable Discharge Plan Admission Admit Date/Time: 08/17/21 14:40 Attending Provider: Tyler Barclay Primary Care Provider: Froylan Grant Discharge Orders/Prescriptions Prescriptions: No Action hydroxychloroquine 200 MG tablet 200 mg PO BID RF: 0 pantoprazole [Protonix] 40 mg Tablet,Delayed Release (Dr/Ec) 40 mg PO BID RF: 0 atorvastatin 20 MG tablet 20 mg PO QHS RF: 0 hydroxyzine HCl 50 mg Tablet 50 mg PO Q8H PRN PRN (Reason: Anxiety) RF: 0 promethazine 25 MG tablet 25 mg PO Q6H PRN PRN (Reason: Nausea) Qty: 10 RF: 0 sertraline 100 mg Tablet 150 mg PO DAILY RF: 0 methotrexate sodium 2.5 mg Tablet 15 mg PO SA RF: 0 ergocalciferol (vitamin D2) 1,250 mcg (50,000 unit) Capsule 1,250 mcg PO SA RF: 0 famotidine 40 mg tablet 40 mg PO BID RF: 0 Creon 24,000-76,000 -120,000 unit capsule,delayed release(DR/EC) 2 cap PO TID RF: 0 Referrals / Follow Up: Froylan Grant MD [Primary Care Provider] - Disposition Disposition (needs filled in before D/C Order can be placed): Against Medical Advice Charges/Coding Addendum Addendum: Please cancel that billing charge of progress note of the same date. Visit Charges Inpatient E&M: 28368 Disch Hosp
== END 2021-08-19 16:53 | disposition left against medical advice (07) | DRG 770 ==
LOC: ED 12:15 → MS2 14:49 → MS3 08-18 17:13
PROVIDERS: Emergency Provider Emergency Medicine; PCP Internal Medicine; Visit Provider Internal Medicine
DX: F10.239 Alcohol dependence with withdrawal, unspecified (principal); F10.220 Alcohol dependence with intoxication, uncomplicated; H81.11 Benign paroxysmal vertigo, right ear; Y90.8 Blood alcohol level of 240 mg/100 ml or more; S09.21XD Traumatic rupture of right ear drum, subsequent encounter; Y04.2XXD Assault by strike against or bumped into by another person, subsequent encounter
CPT/HCPCS: 70450; 80048; 80053; 80307; 81001; 82077; 83735; 84100; 85025; 93005; 97162; 97802; 99284; A4216

== ENCOUNTER 2021-12-11 08:20 | Emergency (ER) | payer MEDICAID, SELFPAY ==
[2021-12-11 08:21] VITALS: BP 150/102; PULSE 110; RESP 18; TEMP 36.1; O2SAT 98; BMI 20.9
[2021-12-11 08:24] VITALS: BP 150/102; PULSE 110; RESP 18; TEMP 36.1; O2SAT 98
--- NOTE | 2021-12-11 08:34 | EDS_ITS ---
HPI History of Present Illness Chief Complaint: Abd Pain Narrative Narrative: Patient presents with nausea vomiting watery diarrhea for the past few days, no fever or chills. She feels slightly lightheaded standing up. She does have a history of lupus, she has history of pancreatitis and colitis in the past. She was diagnosed with Covid about 2-1/2 weeks ago. Otherwise she has been feeling well and thinks she got over the Covid. No chest pain or shortness of breath. No flank pain. She is denying any urinary symptoms. [facility] Medical History Alcohol abuse Alcohol abuse Alcohol dependence with acute alcoholic intoxication Alcoholism Anxiety and depression Asthma CAD (coronary artery disease) Cervical neuropathy Concussion Depression Dissection, vertebral artery Fibromyalgia Headache HTN (hypertension) Hypertension Injury due to fall Kidney stones Lupus nephritis Lupus vasculitis Musculoskeletal limb pain Myocardial infarct Pancreatitis Seizures Systemic lupus erythematosus Thrombocytopenia TIA (transient ischemic attack) Tympanic membrane rupture Home Medications hydroxychloroquine 200 mg PO BID 09/26/20 [History Last Taken 08/17/21] pantoprazole [Protonix] 40 mg PO BID 03/17/21 [History Last Taken 08/17/21] atorvastatin 20 mg PO QHS 05/06/21 [History Last Taken 08/16/21] hydroxyzine HCl 50 mg PO Q8H PRN PRN 05/20/21 [History Last Taken 08/17/21] promethazine 25 mg PO Q6H PRN PRN #10 tablet 05/20/21 [Rx Last Taken Unknown] ergocalciferol (vitamin D2) 1,250 mcg PO SA 06/05/21 [History Last Taken 08/15/21] methotrexate sodium 15 mg PO SA 06/05/21 [History Last Taken 08/15/21] sertraline 150 mg PO DAILY 06/05/21 [History Last Taken 08/16/21] famotidine 40 mg PO BID 07/31/21 [History Last Taken 08/17/21] [id number] [Creon] 2 cap PO TID 08/17/21 [History Last Taken 4 Days Ago ~08/13/21] dicyclomine 20 mg PO TID #14 tab 12/11/21 [Rx Last Taken Unknown] Allergy/AdvReac Type Severity Reaction Status Date / Time metoclopramide HCl Allergy anxious Verified 12/11/21 08:33 [From Reglan] peanut Allergy Anaphylaxis Verified 12/11/21 08:33 Sulfa (Sulfonamide Allergy Hives Verified 12/11/21 08:33 Antibiotics) prednisone AdvReac psychosis Verified 12/11/21 08:33 prochlorperazine AdvReac anxious Verified 12/11/21 08:33 [From Compazine] Family History Father Diabetes CAD (coronary artery disease) Melanoma Mother Rheumatoid arthritis Melanoma Other Multiple sclerosis Surgical History H/O cervical spine surgery H/O knee surgery History of cholecystectomy History of hysterectomy S/P appendectomy Social History household members: none housing: apartment Smoking Status: Never smoker alcohol intake: current alcohol intake frequency: 3 or more drinks per day Alcohol type: hard liquor details: Patient reports only recently 2 nicholas[employer] hard lemonades, last at midnight. substance use type: does not use ROS ROS ED ROS Narrative Past medical history: Reviewed, includes lupus, heart disease, prior pancreatitis and colitis Medications: Reviewed Social history: Noncontributory Review of systems: All systems negative except as indicated General: No fever. She feels slightly lightheaded Eyes: No visual changes ENT: No upper airway congestion, normal voice Neck: No neck pain Cardiovascular: No chest pain Respiratory: No shortness of breath or cough Gastrointestinal: As in HPI Genitourinary: No dysuria Musculoskeletal: Denies myalgias no difficulty with ambulation Skin: No rash Neurological: No memory loss, confusion or any focal weakness Psych: No recent behavioral changes Hematologic: No easy bleeding or easy bruising EXAM Physical Exam Narrative Exam Narrative: Physical exam General: Patient appears somewhat uncomfortable Head: Normocephalic, Atraumatic Eyes: Conjunctiva not pale ENT: Somewhat dry mucous membranes Neck: Supple, Nontender, No lymphadenopathy Cardiovascular: Regular rate, Regular rhythm Respiratory: No distress, CTA bilaterally Abdomen: Soft, left upper quadrant and epigastric tenderness. No guarding or rebound. No lower abdominal pain no right upper quadrant pain. Right lower quadrant pain. Back: Nontender, Normal Inspection. Negative for: CVA tenderness Extremities: Nontender, No edema Skin: Normal color, No rash Neurological: Alert, Normal Strength, Normal Sensation Psychological: Normal affect Const Vital Signs: 12/11/21 08:21 12/11/21 08:24 12/11/21 11:09 Temperature 97 F L 97 F L Temperature Source Temporal Temporal Pulse Rate 110 H 110 H 104 H Respiratory Rate 18 18 16 Blood Pressure 150/102 H 150/102 H 147/90 H Blood Pressure Mean 118 118 109 Pulse Ox 98 98 99 Oxygen Delivery Method Room Air Room Air Room Air MDM MDM MDM Narrative Medical decision making narrative: Patient has an unremarkable work-up. She appears well she is improved although she did have some side effects from the Reglan. She is slightly nauseated again I will treat with Zofran, will give antacids. I reevaluate her abdomen she has mild epigastric tenderness I do not believe she needs a CT at this time. If anything changes she is to return she understands this. Lab Data Labs: Laboratory Results - last 24 hr 12/11/21 12/11/21 08:45 08:45 WBC 5.1 RBC 4.33 Hgb 13.4 Hct 39.1 MCV 90.3 MCH 30.9 MCHC 34.3 RDW Std Deviation 55.6 H RDW Coeff of Leeann 16.6 H Plt Count 523 H MPV 9.2 Immature Gran % (Auto) 0.400 Neut % (Auto) 49.4 Lymph % (Auto) 34.6 [place] % (Auto) 10.9 H Eos % (Auto) 2.9 Baso % (Auto) 1.8 H Absolute Neuts (auto) 2.5 Absolute Lymphs (auto) 1.77 Nucleated RBC % 0 Sodium 137 Potassium 3.2 L Chloride 98 Carbon Dioxide 30.0 Anion Gap 9 BUN 7 Creatinine 0.89 Estim Creat Clear Calc 75.32 Est GFR (MDRD) Af Amer 86 Est GFR (MDRD) Non-Af 71 BUN/Creatinine Ratio 7.8 L Glucose 121 H Calcium 9.0 Total Bilirubin 0.30 AST 27 ALT 23 Alkaline Phosphatase 83 Total Protein 7.2 Albumin 3.7 Globulin 3.5 Albumin/Globulin Ratio 1.1 Lipase 38 L Discharge Plan Triage Chief Complaint: Abd Pain ED Provider: Haja Castillo Dx/Rx/DC Orders Clinical Impression: Abdominal pain, Gastroenteritis Instructions: ED Gastroenteritis, Noninfectious Prescriptions: New dicyclomine 20 mg tablet 20 mg PO TID Qty: 14 RF: 0 No Action hydroxychloroquine 200 MG tablet 200 mg PO BID RF: 0 pantoprazole [Protonix] 40 mg Tablet,Delayed Release (Dr/Ec) 40 mg PO BID RF: 0 atorvastatin 20 MG tablet 20 mg PO QHS RF: 0 hydroxyzine HCl 50 mg Tablet 50 mg PO Q8H PRN PRN (Reason: Anxiety) RF: 0 promethazine 25 MG tablet 25 mg PO Q6H PRN PRN (Reason: Nausea) Qty: 10 RF: 0 sertraline 100 mg Tablet 150 mg PO DAILY RF: 0 methotrexate sodium 2.5 mg Tablet 15 mg PO SA RF: 0 ergocalciferol (vitamin D2) 1,250 mcg (50,000 unit) Capsule 1,250 mcg PO SA RF: 0 famotidine 40 mg tablet 40 mg PO BID RF: 0 Creon 24,000-76,000 -120,000 unit capsule,delayed release(DR/EC) 2 cap PO TID RF: 0 Primary Care Provider: Diana Garcia Referrals: Diana Garcia MD [Primary Care Provider] - 2 Days Disposition Disposition: Home, Self Care
[2021-12-11] MEDS: Morphine 2 MG/ML Syringe IV (08:55)
[2021-12-11] MEDS: 0.9% Normal Saline 1,000 ML 1000 ML IV (08:55)
[2021-12-11] MEDS: Metoclopramide 10 MG/2 ML Vial 5 MG IV (08:55)
[2021-12-11] MEDS: DiphenhydrAMINE 50 MG/ML Syringe 25 MG IV (08:55)
[2021-12-11 08:56] LABS: Absolute Lymphocyte Count 1.77 X10^3/uL (0.83-4.51); Absolute Neutrophil Count 2.5 X10^3/uL (2.0-7.7); Basophil# 0.09 X10^3/uL; Basophil% 1.8 % (0-1); Eosinophil# 0.15 X10^3/uL; Eosinophils% 2.9 % (0-5); Hematocrit 39.1 % (37-47); Hemoglobin 13.4 g/dL (12.0-15.0); Lymphocyte # 1.77 X10^3/ul (0.83-4.51); Lymphocyte % 34.6 % (19-41); Mean Corp Hgb Conc 34.3 g/dL (32-36); Mean Corpuscular Hgb 30.9 pg (27.0-32.0); Mean Corpuscular Volume 90.3 fL (81-99); Mean Platelet Vol. 9.2 fl (6.2-12.0); Monocyte# 0.56 X10^3/uL; Monocyte% 10.9 % (0-10); NRBC Flagged by Analyzer 0 % (0-5); Neutrophil # 2.53 X10^3/uL (2.7-7.7); Neutrophil % 49.4 % (47-70); Platelet Count 523 K/mm3 (150-450); RBC Distribution Width CV 16.6 % (11.6-14.6); RBC Distribution Width SD 55.6 fl (35.1-43.9); Red Blood Count 4.33 M/mm3 (4.2-5.4); White Blood Count 5.1 K/mm3 (4.4-11.0)
[2021-12-11 09:13] LABS: ALB/GLOB Ratio 1.1 RATIO (0.9-2.4); AST(SGOT) 27 U/L (15-37); Alanine Aminotransfer ALT/SGPT 23 U/L (13-56); Albumin, Serum 3.7 g/dL (3.2-5.0); Alkaline Phosphatase 83 U/L (45-117); Anion Gap 9 (5-15); BUN 7 mg/dL (7-18); BUN/Creat Ratio 7.8 RATIO (10-20); Chloride 98 mmol/L (98-107); Creatinine, Serum 0.89 mg/dL (0.55-1.02); EST Glomerular Filtration Rate 71 mL/min (>60); Est Glom Filt Rate - Afr Amer 86 mL/min (>60); Estimated Creatinine Clearance 75.32 ml/min; Globulin 3.5 g/dL (2.2-4.2); Glucose 121 mg/dL (74-106); Lipase 38 U/L (73-393); Potassium 3.2 mmol/L (3.5-5.1); Protein, Total 7.2 g/dL (6.4-8.2); Sodium Level 137 mmol/L (136-145)
[2021-12-11] MEDS: Potassium Chloride Oral Tablet 20 MEQ 40 MEQ PO (11:06)
[2021-12-11 11:09] VITALS: BP 147/90; PULSE 104; RESP 16; O2SAT 99
[2021-12-11] MEDS: Ondansetron 4 MG/2 ML Vial IV (11:13)
[2021-12-11] MEDS: Famotidine 200 MG/20 ML MDV 20 MG in 0.9% Normal Saline (Pres. free 8 ML 300 MG IV (11:31)
== END 2021-12-11 12:18 | disposition home or self-care (01) ==
PROVIDERS: Emergency Provider Emergency Medicine; PCP Internal Medicine; Visit Provider Emergency Medicine
DX: K52.9 Noninfective gastroenteritis and colitis, unspecified (principal); F10.20 Alcohol dependence, uncomplicated; D68.62 Lupus anticoagulant syndrome; I25.10 Atherosclerotic heart disease of native coronary artery without angina pectoris; I10 Essential (primary) hypertension; Z86.16 Personal history of COVID-19; J45.909 Unspecified asthma, uncomplicated; M79.7 Fibromyalgia; I25.2 Old myocardial infarction; F41.8 Other specified anxiety disorders; Z79.899 Other long term (current) drug therapy
CPT/HCPCS: 80053; 83690; 85025; 96361; 96374; 96375; 99284; J7030; A4216; J2405; J3490

== ENCOUNTER 2021-12-28 09:47 | Emergency (ER) | payer MEDICAID, SELFPAY ==
[2021-12-28 09:49] VITALS: BP 122/89; PULSE 117; RESP 18; TEMP 36.3; O2SAT 99; BMI 21.2
--- NOTE | 2021-12-28 10:44 | ED.RN ---
This RN witnessed patient trying to leave. Patient stated I just need to leave I cannot be here. This RN reminded patient she has not seen the DrClarence and that it would be in best interest to stay and be evaluated due to her reported head injury. Pt. refused to stay. RN reminded patient she would be leaving against medical advice and she stated yep that is ok. Pt. refused to stay and sign AMA papers. Dr. Valenzuela notified.
== END 2021-12-28 10:50 | disposition left against medical advice (07) ==
PROVIDERS: Emergency Provider Student in an Organized Health Care Education/Training Program; PCP Internal Medicine; Visit Provider Student in an Organized Health Care Education/Training Program
DX: T14.90XA Injury, unspecified, initial encounter (principal); Y09 Assault by unspecified means
CPT/HCPCS: 99281; 99282

== ENCOUNTER 2022-01-24 13:59 | Inpatient (IN) | payer MEDICAID, SELFPAY ==
[2022-01-24] VITALS (7 sets, daily range): BP systolic 110–133; BP diastolic 70–95; PULSE 73–87; RESP 14–20; TEMP 36.7–37; O2SAT 93–98; BMI 21.2; BMI 20.7
--- NOTE | 2022-01-24 14:24 | EKG12_ITS ---
Test Reason : Blood Pressure : / mmHG Vent. Rate : 081 BPM Atrial Rate : 081 BPM P-R Int : 140 ms QRS Dur : 090 ms QT Int : 406 ms P-R-T Axes : 027 015 034 degrees QTc Int : 471 ms Normal sinus rhythm Normal ECG Confirmed by MENDEZ HICKMAN, BERNARD ([id number]), editor map ANH BEARD ([id number]) on 01/25/2022 1:23:08 PM Referred By: TERI Confirmed By:BERNARD SIMMS MD
--- NOTE | 2022-01-24 14:24 | EDS_ITS ---
HPI History of Present Illness Chief Complaint: Substance Abuse Informant: patient and spouse/S.O. Onset/Context/Timing Onset: Month(s) Context: Gradual Onset Timing: Continuous Current Severity: Mild Maximum Severity: Mild Associated Symptoms Associated Symptoms: Negative for vomiting*, diarrhea*, fever*, rash*, seizure, tremor and change in mental status Narrative Narrative: 11-year-old female history of alcohol abuse states I am an alcoholi c, TIAs, pancreatitis, lupus, CAD, pericarditis and a prior vertebral dissection. States that she was last detoxed here about 6 months ago in [place] in the last month. Is requesting to be detoxed again. States that she drinks 2/5 of alcohol every day. Denies any drug use or smoking. Denies vomiting or diarrhea. Also states recently she has been short of breath. Prior similar symptoms: Yes Recent Illness/Hospitalization: Yes [facility] Medical History Alcohol abuse Alcohol abuse Alcohol dependence with acute alcoholic intoxication Alcoholism Anxiety and depression Asthma CAD (coronary artery disease) Cervical neuropathy Concussion Depression Dissection, vertebral artery Fibromyalgia Headache HTN (hypertension) Hypertension Injury due to fall Kidney stones Lupus nephritis Lupus vasculitis Musculoskeletal limb pain Myocardial infarct Pancreatitis Seizures Systemic lupus erythematosus Thrombocytopenia TIA (transient ischemic attack) Tympanic membrane rupture Home Medications hydroxychloroquine 200 mg PO BID 09/26/20 [History Last Taken 08/17/21] pantoprazole [Protonix] 40 mg PO BID 03/17/21 [History Last Taken 08/17/21] atorvastatin 20 mg PO QHS 05/06/21 [History Last Taken 08/16/21] hydroxyzine HCl 50 mg PO Q8H PRN PRN 05/20/21 [History Last Taken 08/17/21] promethazine 25 mg PO Q6H PRN PRN #10 tablet 05/20/21 [Rx Last Taken Unknown] ergocalciferol (vitamin D2) 1,250 mcg PO SA 06/05/21 [History Last Taken 08/15/21] methotrexate sodium 15 mg PO SA 06/05/21 [History Last Taken 08/15/21] sertraline 150 mg PO DAILY 06/05/21 [History Last Taken 08/16/21] famotidine 40 mg PO BID 07/31/21 [History Last Taken 08/17/21] inomfo-wssfxftt-[id number] [Creon] 2 cap PO TID 08/17/21 [History Last Taken 4 Days Ago ~08/13/21] dicyclomine 20 mg PO TID #14 tab 12/11/21 [Rx Last Taken Unknown] Allergy/AdvReac Type Severity Reaction Status Date / Time metoclopramide HCl Allergy anxious Verified 01/24/22 14:00 [From Reglan] peanut Allergy Anaphylaxis Verified 01/24/22 14:00 Sulfa (Sulfonamide Allergy Hives Verified 01/24/22 14:00 Antibiotics) prednisone AdvReac psychosis Verified 01/24/22 14:00 prochlorperazine AdvReac anxious Verified 01/24/22 14:00 [From Compazine] Family History Father Diabetes CAD (coronary artery disease) Melanoma Mother Rheumatoid arthritis Melanoma Other Multiple sclerosis Surgical History H/O cervical spine surgery H/O knee surgery History of cholecystectomy History of hysterectomy S/P appendectomy Social History household members: none housing: apartment Smoking Status: Never smoker alcohol intake: current alcohol intake frequency: 3 or more drinks per day Alcohol type: hard liquor details: Patient reports only recently 2 nicholas[employer] hard lemonades, last at midnight. substance use type: does not use ROS ROS ED ROS Narrative Denies. Does complain of shortness of breath. Review of Systems ROS Unobtainable: Denies due to encephalopathy Constitutional Constitutional ED: Denies fever(s) or subjective Eyes Eyes: Denies change in vision ENT ENT ED: Denies ear pain Cardiovascular Cardiovascular: Denies chest pain or palpitations Respiratory/Chest Respiratory/Chest: Reports dyspnea; Denies cough or sputum Gastrointestinal Gastrointestinal: Denies abdominal pain, constipation, diarrhea, melena, nausea or vomiting Genitourinary Genitourinary ED: Denies dysuria Musculoskeletal Musculoskeletal: Denies myalgias Integumentary Denies rash Neurologic Neurologic: Denies headache(s) Psychiatric Psychiatric: Denies depression Endocrine Endocrinology: Denies polyuria Hematologic/Lymphatic Hematologic/Lymphatic: Denies easy bruising Allergic/Immunologic Allergic/Immunologic ED: Denies urticaria EXAM Physical Exam Narrative Exam Narrative: Related fever no acute distress vital signs stable afebrile. Pulse ox 93 percent on room air no hypoxia. H EENT exam unremarkable atraumatic. Neck nontender no JVD. No lymphadenopathy. Lungs clear to auscultation bilaterally. Heart regular rhythm rate about 85 no murmur. Chest wall nontender. Abdomen soft nontender. Pelvic girdle intact. Moving all 4 extremities. Nontender no deformity. Normal strength. Back nontender. Neurologic she is awake and alert with no focal motor deficits. NIH score is 0. Const Vital Signs: 01/24/22 14:00 Temperature 98.6 F Temperature Source Oral Pulse Rate 85 Respiratory Rate 17 Blood Pressure 133/84 H Blood Pressure Mean 100 Pulse Ox 93 Oxygen Delivery Method Room Air Positive well nourished and well developed; Negative for obese, cachectic, contractures or unkempt General Appearance ED: well developed and NAD; Negative for unkempt, cachectic, contractures or pallor Nutritional Appearance: Negative for cachectic or obese HEENT Reports moist mucous membranes atraumatic; Negative for trauma or tenderness Eyes PERRL and EOMs intact bilaterally General Eye ED: Yes pale conjunctiva; Negative for scleral icterus Neck no lymphadenopathy, supple and no JVD Thyroid: Negative for tender Lymph Lymphatic: no lymphadenopathy noted; Negative for lymphadenopathy Chest Wall inspection of chest normal and palpation of chest normal Resp normal respiratory effort and clear to auscultation bilaterally Auscultation: Negative for rales, rhonchi, wheezes or other Cardio regular rate, regular rhythm, S1 normal heart sound, S2 normal heart sound and n o murmurs GI soft to palpation, non-tender, non-distended and no masses Inspection: Negative for abdominal distention Palpation: Negative for tender, guarding or rigid Back/Spine no CVA tenderness General Back: Negative for CVA tenderness Cervical Spine: Negative for cervical spine tenderness Thoracic Spine / Upper Back: Negative for thoracic spinal tenderness Neuro oriented x3 Sensorium / Orientation: alert, oriented to person, oriented to place and orient ed to time; Negative for confused, lethargic or stuporous Psych mental status grossly normal and thought process normal Appearance: Negative for unkempt Attitude: No agitated, No aggressive and No hostile Mood & Affect: Negative for depressed or tearful Skin General Skin Exam: Negative for jaundice or pallor Lesions: no lesions and No lesion noted Rashes: no rashes and No rashes noted Trauma: Negative for abrasion MDM MDM MDM Narrative Medical decision making narrative: 51-year-old female requesting detox for alcoholism. Screening labs will be obtained. Also states she has had some shortness of breath recently even though she has a normal cardiac and lung exam obtain a chest x-ray and EKG. Repeat exam patient is doing well at 3:31 PM. I discussed with the patient she states that she definitely wants to come in and wants to be admitted for detox. I will discuss this with the hospitalist. She was given a milligram of Ativan for anxiety. Lab Data Attestation: I reviewed the patient's lab results. Lab results narrative: CBC shows a white count of 5.1. H&H of 11.4 and 34. Platelets 369. Electrolytes show a potassium of 3.1 gap of 8 normal BUN and creatinine. Liver enzymes are unremarkable. AST is 50. Alcohol levels elevated at 321. Urinalysis negative. Urine tox screen negative except for benzodiazepines. Labs: Laboratory Results - last 24 hr 01/24/22 01/24/22 01/24/22 14:25 14:25 14:25 WBC 5.1 RBC 4.00 L Hgb 11.4 L Hct 34.8 L MCV 87.0 MCH 28.5 MCHC 32.8 RDW Std Deviation 58.0 H RDW Coeff of Leeann 18.1 H Plt Count 369 MPV 9.2 Immature Gran % (Auto) 0.200 Neut % (Auto) 54.1 Lymph % (Auto) 34.9 [place] % (Auto) 8.0 Eos % (Auto) 1.8 Baso % (Auto) 1.0 Absolute Neuts (auto) 2.8 Absolute Lymphs (auto) 1.78 Nucleated RBC % 0 Sodium 140 Potassium 3.1 L Chloride 104 Carbon Dioxide 28.0 Anion Gap 8 BUN 5 L Creatinine 0.66 Estim Creat Clear Calc 103.20 Est GFR (MDRD) Af Amer 123 Est GFR (MDRD) Non-Af 101 BUN/Creatinine Ratio 7.6 L Glucose 109 H Calcium 8.6 Total Bilirubin 0.30 AST 50 H ALT 35 Alkaline Phosphatase 97 Total Protein 7.2 Albumin 3.6 Globulin 3.6 Albumin/Globulin Ratio 1.0 Urine Color Urine Clarity Urine pH Ur Specific [place] Urine Protein Urine Glucose (UA) Urine Ketones Urine Occult Blood Urine Nitrite Urine Bilirubin Urine Urobilinogen Ur Leukocyte Esterase Urine RBC Urine WBC Ur Squamous Epith Cells Urine Bacteria Urine Mucus Urine Opiates Screen Urine Methadone Screen Ur Barbiturates Screen Ur Phencyclidine Scrn Ur Amphetamines Screen MDMA (Ecstasy) Screen U Benzodiazepines Scrn Urine Cocaine Screen U Cannabinoids Screen Ur Drug Screen Comment Ethyl Alcohol 321.0 H* 01/24/22 01/24/22 14:40 14:40 WBC RBC Hgb Hct MCV MCH MCHC RDW Std Deviation RDW Coeff of Leeann Plt Count MPV Immature Gran % (Auto) Neut % (Auto) Lymph % (Auto) [place] % (Auto) Eos % (Auto) Baso % (Auto) Absolute Neuts (auto) Absolute Lymphs (auto) Nucleated RBC % Sodium Potassium Chloride Carbon Dioxide Anion Gap BUN Creatinine Estim Creat Clear Calc Est GFR (MDRD) Af Amer Est GFR (MDRD) Non-Af BUN/Creatinine Ratio Glucose Calcium Total Bilirubin AST ALT Alkaline Phosphatase Total Protein Albumin Globulin Albumin/Globulin Ratio Urine Color Yellow Urine Clarity Clear Urine pH 6.5 Ur Specific [place] 1.005 Urine Protein Negative Urine Glucose (UA) Normal Urine Ketones Negative Urine Occult Blood 10 H Urine Nitrite Negative Urine Bilirubin Negative Urine Urobilinogen Normal Ur Leukocyte Esterase Negative Urine RBC 0-5 SEEN Urine WBC 0-5 SEEN Ur Squamous Epith Cells 0-5 SEEN Urine Bacteria 0 SEEN Urine Mucus 0 SEEN Urine Opiates Screen NEGATIVE Urine Methadone Screen NEGATIVE Ur Barbiturates Screen NEGATIVE Ur Phencyclidine Scrn NEGATIVE Ur Amphetamines Screen NEGATIVE MDMA (Ecstasy) Screen NEGATIVE U Benzodiazepines Scrn POSITIVE H Urine Cocaine Screen NEGATIVE U Cannabinoids Screen NEGATIVE Ur Drug Screen Comment Ethyl Alcohol Radiography Diagnostic Testing: Clinical Impression(s) from Imaging Studies Chest X-Ray 01/24/22 14:40 IMPRESSION: Normal x-ray examination of the chest. Electronically Signed: Arnie Baker MD at 14:52 EDT , Hip/Pelvis X-Ray 01/24/22 14:40 IMPRESSION: Normal x-ray examination of the pelvis and hip. Electronically Signed: Arnie Baker MD at 15:00 EDT , Portable, single view interpreted myself and radiologist shows no acute abnormality. Normal cardiac silhouette. No mediastinum. Normal lungs. Right hip and pelvis x-ray 4 view shows no acute abnormality. Interpreted by myself and the radiologist. No fracture. No dislocation. Rhythm Strip Rhythm Strip: Sinus Rhythm Rate: 81 Ectopy: None EKG Initial EKG: Attestation: I personally reviewed and interpreted this EKG as follows: Interpretation: Sinus Rhythm and No Acute Injury Pattern Comments: Normal sinus rhythm rate 81 no acute signs of SC nor ischemia. Discharge Plan Triage Chief Complaint: Substance Abuse ED Provider: Guillermo Dubose Dx/Rx/DC Orders Clinical Impression: Alcoholism, Admitted to alcohol detoxification center, Anxiety, Alcohol intoxication Prescriptions: No Action hydroxychloroquine 200 MG tablet 200 mg PO BID RF: 0 pantoprazole [Protonix] 40 mg Tablet,Delayed Release (Dr/Ec) 40 mg PO BID RF: 0 atorvastatin 20 MG tablet 20 mg PO QHS RF: 0 hydroxyzine HCl 50 mg Tablet 50 mg PO Q8H PRN PRN (Reason: Anxiety) RF: 0 promethazine 25 MG tablet 25 mg PO Q6H PRN PRN (Reason: Nausea) Qty: 10 RF: 0 sertraline 100 mg Tablet 150 mg PO DAILY RF: 0 methotrexate sodium 2.5 mg Tablet 15 mg PO SA RF: 0 ergocalciferol (vitamin D2) 1,250 mcg (50,000 unit) Capsule 1,250 mcg PO SA RF: 0 famotidine 40 mg tablet 40 mg PO BID RF: 0 Creon 24,000-76,000 -120,000 unit capsule,delayed release(DR/EC) 2 cap PO TID RF: 0 dicyclomine 20 mg tablet 20 mg PO TID Qty: 14 RF: 0 Primary Care Provider: Diana Garcia Referrals: Diana Garcia MD [Primary Care Provider] - Disposition Disposition: Acute Care Hospital [facility]
[2022-01-24 14:39] LABS: Absolute Lymphocyte Count 1.78 X10^3/uL (0.83-4.51); Absolute Neutrophil Count 2.8 X10^3/uL (2.0-7.7); Basophil# 0.05 X10^3/uL; Eosinophil# 0.09 X10^3/uL; Eosinophils% 1.8 % (0-5); Hematocrit 34.8 % (37-47); Hemoglobin 11.4 g/dL (12.0-15.0); Lymphocyte # 1.78 X10^3/ul (0.83-4.51); Lymphocyte % 34.9 % (19-41); Mean Corp Hgb Conc 32.8 g/dL (32-36); Mean Corpuscular Hgb 28.5 pg (27.0-32.0); Mean Platelet Vol. 9.2 fl (6.2-12.0); Monocyte# 0.41 X10^3/uL; NRBC Flagged by Analyzer 0 % (0-5); Neutrophil # 2.76 X10^3/uL (2.7-7.7); Neutrophil % 54.1 % (47-70); Platelet Count 369 K/mm3 (150-450); RBC Distribution Width CV 18.1 % (11.6-14.6); White Blood Count 5.1 K/mm3 (4.4-11.0)
--- NOTE | 2022-01-24 14:40 | RAD_ITS ---
STUDY: X-RAY CHEST REASON FOR EXAM: Female, 51 years old. dyspnea TECHNIQUE: Single AP portable view of the chest. COMPARISON: 05/20/2021 FINDINGS: Status post anterior cervical discectomy and fusion lower cervical spine. The lungs are clear and expanded. There is no demonstrated pleural abnormality. Normal size heart. Normal mediastinum and umberto. Normal visualized pulmonary arteries. Normal visualized aortic arch and descending thoracic aorta. Normal visualized thoracic spine. Normal visualized ribs, clavicles, and shoulders. There is no demonstrated abnormality of the visualized soft tissue structures of the upper abdomen. RAD/Chest 1 View (Portable) IMPRESSION: Normal x-ray examination of the chest. Electronically Signed: Arnie Baker MD at 14:52 EDT ,
--- NOTE | 2022-01-24 14:40 | RAD_ITS ---
STUDY: X-RAY - PELVIS AND RIGHT HIP REASON FOR EXAM: Female, 51 years old. fall, hip pain TECHNIQUE: 3 views of the pelvis and hip. COMPARISON: None. FINDINGS: There is a non-specific bowel gas pattern. Normal visualized soft tissue structures. Normal bilateral iliac wings, sacroiliac joints and visualized sacrum. Normal bilateral superior and inferior pubic rami. Normal pubic symphysis. Normal bilateral ischial tuberosities. Normal visualized femoral head. Normal acetabulum. Normal hip joint. RAD/HIP, UNI W/ Pelvis 2-3 Views IMPRESSION: Normal x-ray examination of the pelvis and hip. Electronically Signed: Arnie Baker MD at 15:00 EDT ,
[2022-01-24 14:47] LABS: Bacteria 0 SEEN /hpf (None Seen); Mucous, Urine 0 SEEN /hpf (<or=2+)
[2022-01-24 14:49] LABS: Color, Urine Yellow (Yellow); Glucose, Dipstick Normal (Normal); Ketone-Dipstick Negative (Negative); Leukocyte Esterase-Dipstick Negative /ul (Negative); Nitrite-Dipstick Negative (Negative); Occult Blood-Urine 10 /ul (Negative); Protein-Dipstick Negative (Negative); Specific Gravity, Urine 1.005 (1.002-1.030); Urine Bilirubin Dipstick Negative (Negative); Urine Clarity Clear (Clear); Urine Urobilinogen Normal (Normal); Urine pH 6.5 (5.0 - 8.0)
[2022-01-24] MEDS: Ondansetron 4 MG/2 ML Vial IV (14:49)
[2022-01-24 14:54] LABS: AST(SGOT) 50 U/L (15-37); Alanine Aminotransfer ALT/SGPT 35 U/L (13-56); Albumin, Serum 3.6 g/dL (3.2-5.0); Alkaline Phosphatase 97 U/L (45-117); Anion Gap 8 (5-15); BUN 5 mg/dL (7-18); BUN/Creat Ratio 7.6 RATIO (10-20); Calcium,Total 8.6 mg/dL (8.5-10.1); Chloride 104 mmol/L (98-107); Creatinine, Serum 0.66 mg/dL (0.55-1.02); EST Glomerular Filtration Rate 101 mL/min (>60); Est Glom Filt Rate - Afr Amer 123 mL/min (>60); Globulin 3.6 g/dL (2.2-4.2); Glucose 109 mg/dL (74-106); Potassium 3.1 mmol/L (3.5-5.1); Protein, Total 7.2 g/dL (6.4-8.2); Sodium Level 140 mmol/L (136-145)
[2022-01-24] MEDS: LORazepam 1 MG Tablet PO (14:54)
[2022-01-24 14:58] LABS: Red Blood Cells-Urine 0-5 SEEN /hpf (0-5); Squamous Epithelial Cells - UA 0-5 SEEN /hpf (5-10); White Blood Cells 0-5 SEEN /hpf (0-5)
[2022-01-24 15:02] LABS: Amphetamine Urine VISTA NEGATIVE (<1000 ng/mL); Barbiturate Urine VISTA NEGATIVE (< 200 ng/mL); Benzodiazepine Urine VISTA POSITIVE (< 200 ng/mL); Cocaine Urine VISTA NEGATIVE (< 300 ng/mL); Ecstacy Urine VISTA NEGATIVE (< 500 ng/mL); Methadone Urine VISTA NEGATIVE (< 300 ng/mL); PCP Urine VISTA NEGATIVE (< 25 ng/mL); THC Urine VISTA NEGATIVE (< 50 ng/mL); Vista UDS pH Range 6
--- NOTE | 2022-01-24 15:49 | HP.PCM.HOS_ITS ---
HPI - General General Date of Admission: 01/24/22 Date of Service: 01/24/22 Chief Complaint: Detoxification request, EtOH abuse. HPI Narrative The patient is a 51 y/o F w/ PMHx: Anxiety and Depression, Hx Pancreatitis, Asthma, CAD, Hx vertebral dissection, HTN, HLD, Lupus w/ associated nephritis/vasculitis, Hx seizures who presents to the [facility] ED on 01/24/22 with history of ongoing alcohol abuse with last detox attempt approximately 1 month prior in [place] and nearly 6 months prior at [facility] with ongoing usage of approximately 2/5 of alcohol daily with interest in recurrent detoxification treatment prompting ED evaluation. Patient last intake was 2 mikes hard lemonade the evening prior near midnight but normally she drinks hard liquor. Work-up in the ED included T98.6, heart rate 85, BP 133/84, respiratory rate 17, 93% on room air, CBC with WBC 5.1, hemoglobin 1.4, platelet 369 without marked shift, CMP with potassium 3.1, glucose 109, AST/ALT 50/35, urinalysis with no acute findings, UDS with positive benzos, ethyl alcohol level 321, chest x-ray with no acute cardiopulmonary findings, plain film of the hip and pelvis with no acute findings. In the ED patient ministered Zofran and Ativan 1 mg p.o. x1. Upon evaluation patient is intoxicated. She notes she started drinking again because of an impending court date of some sort. [facility] Medical History Alcohol abuse Alcohol abuse Alcohol dependence with acute alcoholic intoxication Alcoholism Anxiety and depression Asthma CAD (coronary artery disease) Cervical neuropathy Concussion Depression Dissection, vertebral artery Fibromyalgia Headache HTN (hypertension) Hypertension Injury due to fall Kidney stones Lupus nephritis Lupus vasculitis Musculoskeletal limb pain Myocardial infarct Pancreatitis Seizures Systemic lupus erythematosus Thrombocytopenia TIA (transient ischemic attack) Tympanic membrane rupture Home Medications hydroxychloroquine 200 mg PO BID 09/26/20 [History Last Taken 08/17/21] pantoprazole [Protonix] 40 mg PO BID 03/17/21 [History Last Taken 08/17/21] atorvastatin 20 mg PO QHS 05/06/21 [History Last Taken 08/16/21] hydroxyzine HCl 50 mg PO Q8H PRN PRN 05/20/21 [History Last Taken 08/17/21] promethazine 25 mg PO Q6H PRN PRN #10 tablet 05/20/21 [Rx Last Taken Unknown] ergocalciferol (vitamin D2) 1,250 mcg PO SA 06/05/21 [History Last Taken 08/15/21] methotrexate sodium 15 mg PO SA 06/05/21 [History Last Taken 08/15/21] sertraline 150 mg PO DAILY 06/05/21 [History Last Taken 08/16/21] famotidine 40 mg PO BID 07/31/21 [History Last Taken 08/17/21] [id number] [Creon] 2 cap PO TID 08/17/21 [History Last Taken 4 Days Ago ~08/13/21] Allergy/AdvReac Type Severity Reaction Status Date / Time metoclopramide HCl Allergy anxious Verified 01/24/22 14:00 [From Reglan] peanut Allergy Anaphylaxis Verified 01/24/22 14:00 Sulfa (Sulfonamide Allergy Hives Verified 01/24/22 14:00 Antibiotics) prednisone AdvReac psychosis Verified 01/24/22 14:00 prochlorperazine AdvReac anxious Verified 01/24/22 14:00 [From Compazine] Family History Father Diabetes CAD (coronary artery disease) Melanoma Mother Rheumatoid arthritis Melanoma Other Multiple sclerosis Surgical History H/O cervical spine surgery H/O knee surgery History of cholecystectomy History of hysterectomy S/P appendectomy Social History household members: none housing: apartment Smoking Status: Never smoker alcohol intake: current alcohol intake frequency: 3 or more drinks per day Alcohol type: hard liquor details: Patient reports only recently 2 nicholas's hard lemonades, last at midnight. substance use type: does not use ROS ROS Narrative Admission Review of Systems: CONSTITUTIONAL: No weight loss, fever, chills, + weakness or fatigue. HEENT: Eyes: No visual loss, blurred vision, double vision or yellow sclerae. Ears, Nose, Throat: No hearing loss, sneezing, congestion, runny nose or sore throat. SKIN: No rash or itching, lesions, wounds. CARDIOVASCULAR: No chest pain, chest pressure or chest discomfort, palpitations, edema, orthopnea, syncopal events. RESPIRATORY: + Shortness of breath, occasional wheezing, No cough or sputum, hemoptysis. GASTROINTESTINAL: + Anorexia, nausea, No vomiting or diarrhea, abdominal pain, melena, BRBPR. GENITOURINARY: No dysuria, frequency, urgency or retention. NEUROLOGICAL: No headache, dizziness, syncope, paralysis, ataxia, numbness or tingling in the extremities, focal weakness, change in bowel or bladder control, seizure. MUSCULOSKELETAL:+ muscle, back pain, joint pain or stiffness. HEMATOLOGIC: No anemia, bleeding or bruising. LYMPHATICS: No enlarged nodes. No history of splenectomy. PSYCHIATRIC: + history of depression or anxiety. ENDOCRINOLOGIC: No reports of sweating, cold or heat intolerance. No polyuria or polydipsia. ALLERGIES: + history of asthma, hives, eczema or rhinitis. Vital Signs Vital Signs Vital Signs: 01/24/22 14:00 Temperature 98.6 F Temperature Source Oral Pulse Rate 85 Respiratory Rate 17 Blood Pressure 133/84 H Blood Pressure Mean 100 Pulse Ox 93 Oxygen Delivery Method Room Air Weight Weight: 139 lb 12.369 oz Body Mass Index (BMI) 21.2 Physical Exam Narrative Physical Examination: General: Awake, alert, oriented x 3 and cooperative, laying in the ED bed, smells of alcohol, sluggish movements, appears intoxicated. Skin: Normal color, normal turgor, no icterus, no cyanosis. HEENT: AT/NC, EOMI, PERRLA, mildly dry MM, no carotid bruits or JVD noted. Lungs: Diminished, > bases, occasional end expiratory wheeze distantly, no rales or ronchi. Heart: Currently regular rate and rhythm; no gallop, rub audible. Abdomen: Soft, NTTP, ND, normal BS, no HSM. Extremities: No cyanosis, clubbing, or edema. Neurological: Patient awake, alert, oriented as noted, cognitive function mildly decreased given intoxication; pupils equally reactive to light and accommodation, cranial nerves II-XII grossly normal, moving all 4 extremities, no focal deficits, strength mildly to moderately globally decreased given presentation. Psychiatric: Affect appears fatigued, intoxicated, notes being anxious but no obviously physical evidence of acute evidence of depressive or anxiety feelings. Results Lab / Micro Data Result Diagrams: 01/24/22 14:25 01/24/22 14:25 Labs: Laboratory Results - last 24 hr 01/24/22 14:25: WBC 5.1, RBC 4.00 L, Hgb 11.4 L, Hct 34.8 L, MCV 87.0, MCH 28.5, MCHC 32.8, RDW Std Deviation 58.0 H, RDW Coeff of Leeann 18.1 H, Plt Count 369, MPV 9.2, Immature Gran % (Auto) 0.200, Neut % (Auto) 54.1, Lymph % (Auto) 34.9, [place] % (Auto) 8.0, Eos % (Auto) 1.8, Baso % (Auto) 1.0, Absolute Neuts (auto) 2.8, Absolute Lymphs (auto) 1.78, Nucleated RBC % 0 01/24/22 14:25: Sodium 140, Potassium 3.1 L, Chloride 104, Carbon Dioxide 28.0, Anion Gap 8, BUN 5 L, Creatinine 0.66, Estim Creat Clear Calc 103.20, Est GFR (MDRD) Af Amer 123, Est GFR (MDRD) Non-Af 101, BUN/Creatinine Ratio 7.6 L, Glucose 109 H, Calcium 8.6, Total Bilirubin 0.30, AST 50 H, ALT 35, Alkaline Phosphatase 97, Total Protein 7.2, Albumin 3.6, Globulin 3.6, Albumin/Globulin Ratio 1.0 01/24/22 14:25: Ethyl Alcohol 321.0 H* 01/24/22 14:40: Urine Opiates Screen NEGATIVE, Urine Methadone Screen NEGATIVE, Ur Barbiturates Screen NEGATIVE, Ur Phencyclidine Scrn NEGATIVE, Ur Amphetamines Screen NEGATIVE, MDMA (Ecstasy) Screen NEGATIVE, U Benzodiazepines Scrn POSITIVE H, Urine Cocaine Screen NEGATIVE, U Cannabinoids Screen NEGATIVE, Ur Drug Screen Comment 01/24/22 14:40: Urine Color Yellow, Urine Clarity Clear, Urine pH 6.5, Ur Spec ific Mathews 1.005, Urine Protein Negative, Urine Glucose (UA) Normal, Urine Ketones Negative, Urine Occult Blood 10 H, Urine Nitrite Negative, Urine Bilirubin Negative, Urine Urobilinogen Normal, Ur Leukocyte Esterase Negative, Urine RBC 0-5 SEEN, Urine WBC 0-5 SEEN, Ur Squamous Epith Cells 0-5 SEEN, Urine Bacteria 0 SEEN, Urine Mucus 0 SEEN Rhythm Strip Rhythm Strip: Sinus Rhythm Rate: 81 Ectopy: None Radiology Impression Chest X-Ray 01/24/22 14:40 IMPRESSION: Normal x-ray examination of the chest. Electronically Signed: Arnie Baker MD at 14:52 EDT , Hip/Pelvis X-Ray 01/24/22 14:40 IMPRESSION: Normal x-ray examination of the pelvis and hip. Electronically Signed: Arnie Baker MD at 15:00 EDT Reading Location ID and State: [id number] / [employer] Tel , Service support , Assessment & Plan Assessment/Plan (1) Admitted to alcohol detoxification center: PLAN: The patient is a 51 y/o F w/ PMHx: Anxiety and Depression, Hx Pancreatitis, Asthma, CAD, Hx vertebral dissection, HTN, HLD, Lupus w/ asso ciated nephritis/vasculitis, Hx seizures who presents to the [facility] ED on 01/24/22 with history of ongoing alcohol abuse with last detox attempt approximately 1 month prior in [place] and nearly 6 months prior at [facility] with ongoing usage of approximately 2/5 of alcohol daily with interest in recurrent detoxification treatment prompting ED evaluation. #1. Acute EtOH Withdrawal: Will admit to [place], routine labs obtained in the ED upon presentation as noted. Given interest in sobriety, will initiate and continue on protocol with taper course of Phenobarbital, scheduled gabapentin for seizure prophylaxis, as needed Catapres, Bentyl, Vistaril, IV fluids, IV antiemetics, Tylenol as needed for pain. Will consult Case management for assistance for transition to next level of rehabilitation care. Mag, phos pending. Maintain on CIWA protocol concurrently. #2. Hypokalemia: Admission K+ 3.1, magnesium level requested, supplementation given, repeat level in AM. #3. CAD: We will continue aspirin cautiously given history, statin, not on beta-yovani or SAVAGE inhibitor/ARB. #4. SLE with history of cyst and nephritis/vasculitis: We will continue patient home methotrexate and high-dose folic acid regimen as well as Plaquenil. #5. Hypertension: Per current list not on regimen, will monitor and if appropriate add regimen, as needed IV hydralazine. #6. Asthma: We will initiate scheduled budesonide given patient's dyspnea complaints with recent significant side effects of allergic rhinitis, as needed albuterol. #7. Hyperlipidemia: We will continue patient on statin therapy. #8. GERD: We will continue patient home PPI. #9. Anxiety depression: We will continue patient home sertraline regimen. #10. History of pancreatitis: We will continue patient home Creon regimen. #11. DVT prophylaxis: Given type of admission will defer, encourage ambulation. Charges/Coding Visit Charges Inpatient E&M: 97182 Init Hosp L2
[2022-01-24 16:11] LABS: Magnesium 2.1 mg/dL (1.6-2.6); Phosphorus 2.8 mg/dL (2.5-4.9)
--- NOTE | 2022-01-24 16:27 | NURSING ---
Thaddeus Polanco Apolinar Abernathy [phone] will be made POA for pt because is getting Ion Beebe
[2022-01-24] MEDS: Lactated Ringers 1,000 ML 125 ML IV (17:23)
[2022-01-24] MEDS: Ondansetron 8 MG Tablet PO (17:24)
[2022-01-24] MEDS: Phenobarbital 32.4 MG Tablet 64.8 MG PO ×2 (17:24→20:38)
[2022-01-24] MEDS: Dicyclomine 10 MG Capsule 20 MG PO (17:24)
[2022-01-24] MEDS: Gabapentin 300 MG Capsule PO (17:25)
[2022-01-24] MEDS: Potassium Chloride Oral Tablet 20 MEQ 40 MEQ PO (18:35)
[2022-01-24] MEDS: Creon 24,000 unit DR Capsule 2 CAP PO (18:36)
[2022-01-24] MEDS: Budesonide Respules 0.5 MG/2 ML AMPUL.NEB. INHALATION (19:25)
[2022-01-24] MEDS: Pantoprazole Sodium 40 MG Tablet PO (22:04)
[2022-01-24] MEDS: Hydroxychloroquine 200 MG Tablet PO (22:04)
[2022-01-24] MEDS: Atorvastatin Calcium 20 MG Tablet PO (22:04)
[2022-01-24] MEDS: Sertraline 100 MG Tablet 150 MG PO (22:04)
[2022-01-24] MEDS: hydrOXYzine PAM 25 MG Capsule 50 MG PO (22:20)
[2022-01-25 02:00] VITALS: BP 119/80; PULSE 86; RESP 16; TEMP 37.4; O2SAT 95
[2022-01-25] MEDS: Phenobarbital 32.4 MG Tablet 64.8 MG PO ×6 (02:22→20:00)
[2022-01-25] MEDS: Ondansetron 8 MG Tablet PO ×2 (02:22→17:57)
[2022-01-25] MEDS: hydrOXYzine PAM 25 MG Capsule 50 MG PO ×4 (02:22→19:59)
[2022-01-25 05:23] VITALS: BP 117/82; PULSE 72; RESP 16; TEMP 36.6; O2SAT 98
[2022-01-25] MEDS: Dicyclomine 10 MG Capsule 20 MG PO ×3 (06:53→16:49)
--- NOTE | 2022-01-25 07:29 | PCM.PN.HOSP ---
Subjective Subjective Follow-up for acute alcohol withdrawal syndrome. Objective Data Objective Data Vital Signs: Vital Signs Temp Pulse Resp BP Pulse Ox 98 F 72 16 117/82 H 98 01/25/22 05:23 01/25/22 05:23 01/25/22 05:23 01/25/22 05:23 01/25/22 05:23 Oxygen Delivery Method Room Air Weight: 136 lb Body Mass Index (BMI) 20.7 Intake & Output: Intake and Output for Last 24 Hours 01/23/22 01/24/22 01/25/22 23:59 23:59 23:59 Intake Total 120 / 120 1000 / 1000 Output Total 50 / 50 Balance 70 / 70 1000 / 1000 Lab / Micro Data Result Diagrams: 01/24/22 14:25 01/24/22 14:25 Labs: Laboratory Results - last 24 hr 01/24/22 14:25: WBC 5.1, RBC 4.00 L, Hgb 11.4 L, Hct 34.8 L, MCV 87.0, MCH 28.5, MCHC 32.8, RDW Std Deviation 58.0 H, RDW Coeff of Leeann 18.1 H, Plt Count 369, MPV 9.2, Immature Gran % (Auto) 0.200, Neut % (Auto) 54.1, Lymph % (Auto) 34.9, [place] % (Auto) 8.0, Eos % (Auto) 1.8, Baso % (Auto) 1.0, Absolute Neuts (auto) 2.8, Absolute Lymphs (auto) 1.78, Nucleated RBC % 0 01/24/22 14:25: Sodium 140, Potassium 3.1 L, Chloride 104, Carbon Dioxide 28.0, Anion Gap 8, BUN 5 L, Creatinine 0.66, Estim Creat Clear Calc 103.20, Est GFR (MDRD) Af Amer 123, Est GFR (MDRD) Non-Af 101, BUN/Creatinine Ratio 7.6 L, Glucose 109 H, Calcium 8.6, Total Bilirubin 0.30, AST 50 H, ALT 35, Alkaline Phosphatase 97, Total Protein 7.2, Albumin 3.6, Globulin 3.6, Albumin/Globulin Ratio 1.0 01/24/22 14:25: Ethyl Alcohol 321.0 H* 01/24/22 14:25: Phosphorus 2.8, Magnesium 2.1 01/24/22 14:40: Urine Opiates Screen NEGATIVE, Urine Methadone Screen NEGATIVE, Ur Barbiturates Screen NEGATIVE, Ur Phencyclidine Scrn NEGATIVE, Ur Amphetamines Screen NEGATIVE, MDMA (Ecstasy) Screen NEGATIVE, U Benzodiazepines Scrn POSITIVE H, Urine Cocaine Screen NEGATIVE, U Cannabinoids Screen NEGATIVE, Ur Drug Screen Comment 01/24/22 14:40: Urine Color Yellow, Urine Clarity Clear, Urine pH 6.5, Ur Specific [place] 1.005, Urine Protein Negative, Urine Glucose (UA) Normal, Urine Ketones Negative, Urine Occult Blood 10 H, Urine Nitrite Negative, Urine Bilirubin Negative, Urine Urobilinogen Normal, Ur Leukocyte Esterase Negative, Urine RBC 0-5 SEEN, Urine WBC 0-5 SEEN, Ur Squamous Epith Cells 0-5 SEEN, Urine Bacteria 0 SEEN, Urine Mucus 0 SEEN Radiography Diagnostic Testing: Radiology Impression Chest X-Ray 01/24/22 14:40 IMPRESSION: Normal x-ray examination of the chest. Electronically Signed: Arnie Baker MD at 14:52 EDT Reading Location ID and State: [facility] / [employer] Tel , Service support , Hip/Pelvis X-Ray 01/24/22 14:40 IMPRESSION: Normal x-ray examination of the pelvis and hip. Electronically Signed: Arnie Baker MD at 15:00 EDT Reading Location ID and State: [employer] / [employer] Tel , Service support , Rhythm Strip Rhythm Strip: Sinus Rhythm Rate: 81 Ectopy: None Physical Exam Narrative Patient is stated she is feeling mild nausea. She does not have abdominal pain. She has history of lupus and had lupus induced pancreatitis and omentitis and abdominal problem. She drinks vodka 750 mL every day. General: Alert, Oriented x3, Cooperative HEENT: Atraumatic, PERRLA, EOMI, Normocephalic Oral: No Gingival or Mucosal Lesions/ Ulcerations Neck: Supple, No JVD, Negative Carotid Bruits Lungs: Air entry diminished in bilateral lung bases. No crepitation/rhonchi Cardiovascular: Regular rate, Regular Rhythm, Normal S1, Normal S2, No murmurs Abdomen: Bowel Sounds Present, Soft, Non Tender, Non-Distended : No renal angle tenderness. No suprapubic tenderness. Extremities: No edema, Capillary Refill Less than 3 Seconds Skin: No rashes, No breakdown Musculoskeletal: Mild tremors of the hand. No Tenderness to Palpation of Joints or Extremities Neurological: Cranial nerves II-XII grossly intact, DTR 2+/4 and Symmetrical, Neuro grossly intact Psych/Mental Status: Flat affect. Assessment & Plan Assessment/Plan (1) Admitted to alcohol detoxification center: PLAN: The patient is a 51 y/o F with with multiple admissions for chronic alcohol use with multiple relapses came to ER for acute alcohol withdrawal syndrome. Patient drinks 750 mill of vodka every day. Her last drink was just prior to admission. Her last admission for medical stabilization of alcoholic withdrawal was a month ago in [place] and prior to that she was admitted in [facility] for same indication. #1. Acute EtOH Withdrawal syndrome with chronic alcohol use and dependence, tolerance and multiple relapses. Patient is being admitted on MedSurg floor. Patient on phenobarbital protocol along with gabapentin for seizure prophylaxis and multiple other adjunctive medications. Patient is counseled to quit alcohol. 180 consult. #2. Hypokalemia: Serum magnesium and phosphorus level are normal. Potassium is getting replaced. #3. CAD:continue aspirin cautiously given history, statin, not on beta-yovani or SAVAGE inhibitor/ARB. #4. SLE with history of cyst and nephritis/vasculitis: We will continue patient home methotrexate and high-dose folic acid regimen as well as Plaquenil. #5. Hypertension: Monitor blood pressure. On IV hydralazine. #6. Chronic intermittent asthma: No asthma exacerbation. On a scheduled Pulmicort. As needed albuterol. #7. Hyperlipidemia: continue patient on statin therapy. #8. GERD: We will continue patient home PPI. #9. Anxiety depression: continue patient home sertraline regimen. #10. History of pancreatitis: continue patient home Creon regimen. #11. DVT prophylaxis: Given type of admission will defer, encourage ambulation. Charges/Coding Visit Charges Inpatient E&M: 24344 Subs Hosp L2
[2022-01-25] MEDS: Creon 24,000 unit DR Capsule 2 CAP PO ×3 (07:55→16:49)
[2022-01-25] MEDS: Folic Acid 1 MG Tablet 2 MG PO (07:55)
[2022-01-25] MEDS: Thiamine Hydrochloride 100 MG Tablet PO (07:55)
[2022-01-25] MEDS: Gabapentin 300 MG Capsule PO (08:00)
[2022-01-25] MEDS: Potassium Chloride Oral Tablet 20 MEQ 40 MEQ PO ×2 (08:00→16:51)
[2022-01-25 08:03] VITALS: BP 110/63; PULSE 63; RESP 16; TEMP 36.8; O2SAT 98
[2022-01-25] MEDS: Hydroxychloroquine 200 MG Tablet PO ×2 (09:29→22:00)
[2022-01-25] MEDS: Pantoprazole Sodium 40 MG Tablet PO ×2 (09:29→22:00)
[2022-01-25] MEDS: Acetaminophen 325 MG Tablet 650 MG PO (11:33)
--- NOTE | 2022-01-25 12:04 | ADDICTION ---
This web content writer met with PT to conduct ASAM, MSE, AUDIT assessments and to plan for d/c. PT A+Ox4 and participated actively. All assessments completed and placed in PT's chart. PT plans to f/u with [facility] for follow-up treatment services. PT did not indicate a need for transportation post d/c from [facility]. Pt was informed that due to her repeated admissions to [facility] that if she returns she will need to commit to a residential treatment center in order to be eligible for the [facility] program.
[2022-01-25 13:03] VITALS: BP 100/75; PULSE 85; RESP 14; TEMP 36.9; O2SAT 95
[2022-01-25 17:48] VITALS: BP 107/71; PULSE 71; RESP 16; TEMP 36.8; O2SAT 93
[2022-01-25 19:59] VITALS: BP 106/74; PULSE 81; RESP 16; TEMP 36.8; O2SAT 96
[2022-01-25] MEDS: traZODone 100 MG Tablet PO (21:58)
[2022-01-25] MEDS: Sertraline 100 MG Tablet 150 MG PO (21:59)
[2022-01-25] MEDS: Atorvastatin Calcium 20 MG Tablet PO (22:00)
[2022-01-26] MEDS: hydrOXYzine PAM 25 MG Capsule 50 MG PO ×4 (01:45→21:35)
[2022-01-26] MEDS: Phenobarbital 32.4 MG Tablet 64.8 MG PO ×6 (01:45→21:35)
[2022-01-26 01:46] VITALS: BP 97/70; PULSE 69; RESP 16; TEMP 36.8; O2SAT 98
[2022-01-26 06:00] VITALS: BP 100/75; PULSE 66; RESP 16; TEMP 36.7; O2SAT 96
[2022-01-26] MEDS: Dicyclomine 10 MG Capsule 20 MG PO ×3 (06:01→16:29)
--- NOTE | 2022-01-26 07:39 | PCM.PN.HOSP ---
Subjective Subjective Overall patient is feeling good. Objective Data Objective Data Vital Signs: Vital Signs Temp Pulse Resp BP Pulse Ox 98.0 F 66 16 100/75 96 01/26/22 06:00 01/26/22 06:00 01/26/22 06:00 01/26/22 06:00 01/26/22 06:00 Oxygen Delivery Method Room Air Weight: 136 lb Body Mass Index (BMI) 20.7 Intake & Output: Intake and Output for Last 24 Hours 01/24/22 01/25/22 01/26/22 23:59 23:59 23:59 Intake Total 120 / 120 2099 Output Total 50 / 50 Balance 70 / 70 2099 Lab / Micro Data Result Diagrams: 01/24/22 14:25 01/26/22 09:10 Rhythm Strip Rhythm Strip: Sinus Rhythm Rate: 81 Ectopy: None Physical Exam Narrative No nausea, vomiting or abdominal pain. General: Alert, Oriented x3, Cooperative HEENT: Atraumatic, PERRLA, EOMI, Normocephalic Oral: No Gingival or Mucosal Lesions/ Ulcerations Neck: Supple, No JVD, Negative Carotid Bruits Lungs: Air entry diminished in bilateral lung bases. No crepitation/rhonchi Cardiovascular: Regular rate, Regular Rhythm, Normal S1, Normal S2, No murmurs Abdomen: Bowel Sounds Present, Soft, Non Tender, Non-Distended : No renal angle tenderness. No suprapubic tenderness. Extremities: No edema, Capillary Refill Less than 3 Seconds Skin: No rashes, No breakdown Musculoskeletal: Mild tremors of the hand. No Tenderness to Palpation of Joints or Extremities Neurological: Cranial nerves II-XII grossly intact, DTR 2+/4 and Symmetrical, Neuro grossly intact Psych/Mental Status: Flat affect. Assessment & Plan Assessment/Plan (1) Admitted to alcohol detoxification center: PLAN: The patient is a 51 y/o F with with multiple admissions for chronic alcohol use with multiple relapses came to ER for acute alcohol withdrawal syndrome. Patient drinks 750 mill of vodka every day. Her last drink was just prior to admission. Her last admission for medical stabilization of alcoholic withdrawal was a month ago in [place] and prior to that she was admitted in [facility] for same indication. #1. Acute EtOH Withdrawal syndrome with chronic alcohol use and dependence, tolerance and multiple relapses. Patient is being admitted on MedSurg floor. Patient on phenobarbital protocol along with gabapentin for seizure prophylaxis and multiple other adjunctive medications. Patient is counseled to quit alcohol. 180 consult. She is set up for outpatient follow-up. #2. Hypokalemia: Serum magnesium and phosphorus level are normal. Potassium is getting replaced. 01/26: Repeat labs shows potassium 3.8, magnesium 1.7 and phosphorus 3.0. #3. CAD:continue aspirin cautiously given history, statin, not on beta-yovani or SAVAGE inhibitor/ARB. #4. SLE with history of cyst and nephritis/vasculitis: We will continue patient home methotrexate and high-dose folic acid regimen as well as Plaquenil. She has history of lupus and had lupus induced pancreatitis and omentitis. #5. Hypertension: Monitor blood pressure. On IV hydralazine. #6. Chronic intermittent asthma: No asthma exacerbation. On a scheduled Pulmicort. As needed albuterol. #7. Hyperlipidemia: continue patient on statin therapy. #8. GERD: We will continue patient home PPI. #9. Anxiety depression: continue patient home sertraline regimen. #10. History of pancreatitis: continue patient home Creon regimen. #11. DVT prophylaxis: Given type of admission will defer, encourage ambulation. Charges/Coding Visit Charges Inpatient E&M: 71821 Subs Hosp L2
[2022-01-26 08:04] VITALS: BP 115/56; PULSE 89; RESP 16; TEMP 36.6; O2SAT 96
[2022-01-26] MEDS: Creon 24,000 unit DR Capsule 2 CAP PO ×3 (08:07→16:29)
[2022-01-26] MEDS: Potassium Chloride Oral Tablet 20 MEQ 40 MEQ PO ×2 (08:07→16:30)
[2022-01-26] MEDS: Pantoprazole Sodium 40 MG Tablet PO ×2 (08:08→21:36)
[2022-01-26] MEDS: Folic Acid 1 MG Tablet 2 MG PO (08:08)
[2022-01-26] MEDS: Thiamine Hydrochloride 100 MG Tablet PO (08:09)
[2022-01-26] MEDS: Hydroxychloroquine 200 MG Tablet PO ×2 (09:14→21:36)
[2022-01-26 09:43] LABS: Anion Gap 7 (5-15); BUN 5 mg/dL (7-18); BUN/Creat Ratio 6.8 RATIO (10-20); Calcium,Total 8.4 mg/dL (8.5-10.1); Chloride 104 mmol/L (98-107); Creatinine, Serum 0.73 mg/dL (0.55-1.02); EST Glomerular Filtration Rate 90 mL/min (>60); Est Glom Filt Rate - Afr Amer 109 mL/min (>60); Estimated Creatinine Clearance 90.78 ml/min; Glucose 124 mg/dL (74-106); Magnesium 1.7 mg/dL (1.6-2.6); Potassium 3.8 mmol/L (3.5-5.1); Sodium Level 135 mmol/L (136-145)
[2022-01-26 16:27] VITALS: BP 95/64; PULSE 66; RESP 16; TEMP 36.6; O2SAT 99
[2022-01-26] MEDS: Gabapentin 300 MG Capsule PO (19:41)
[2022-01-26] MEDS: traZODone 100 MG Tablet PO (21:35)
[2022-01-26] MEDS: Sertraline 100 MG Tablet 150 MG PO (21:36)
[2022-01-26] MEDS: Atorvastatin Calcium 20 MG Tablet PO (21:37)
[2022-01-26 21:40] VITALS: BP 123/75; PULSE 68; RESP 16; TEMP 36.6; O2SAT 100
[2022-01-27] MEDS: Phenobarbital 32.4 MG Tablet 64.8 MG PO ×2 (01:11→06:07)
[2022-01-27 06:00] VITALS: BP 89/64; PULSE 92; RESP 16; TEMP 37; O2SAT 96
[2022-01-27] MEDS: Dicyclomine 10 MG Capsule 20 MG PO ×2 (06:07→11:54)
[2022-01-27] MEDS: hydrOXYzine PAM 25 MG Capsule 50 MG PO (06:07)
[2022-01-27 07:21] VITALS: O2SAT 93
--- NOTE | 2022-01-27 08:04 | PCM.DC ---
Discharge Instructions Diet Discharge Diet: No restrictions Dressing / Incision Call your doctor if you observe: Fever of 101 or Higher, Coldness, Increased Pain, Numbness or Tingling, Change in Color, Inability to urinate, Inability to have a bowel movement, Shortness of breath, Dizziness, Fainting spells, Swelling in the ankles, Chest pain, Prolonged hiccupping, Increased palpitations (irregular heartbeat) and Calf discomfort Follow Up Care Test Results: Test results from this visit will be discussed in further detail at your follow-up appointment, if applicable. Discharge Plan Admission Admit Date/Time: 01/24/22 15:49 Primary Reason for Your Visit: Acute alcohol withdrawal syndrome Attending Provider: Tyler Barclay Primary Care Provider: Diana Garcia Instructions Additional Instructions / Restrictions: Follow-up outpatient substance use rehab as scheduled by 180 Discharge Orders/Prescriptions Prescriptions: New thiamine HCl (vitamin B1) [Vitamin B-1] 100 mg Tablet 100 mg PO DAILYCM Qty: 30 RF: 0 folic acid 1 mg Tablet 1 mg PO BREAKFAST Qty: 30 RF: 2 Continued hydroxychloroquine 200 MG tablet 200 mg PO BID RF: 0 pantoprazole [Protonix] 40 mg Tablet,Delayed Release (Dr/Ec) 40 mg PO BID RF: 0 atorvastatin 20 MG tablet 20 mg PO QHS RF: 0 hydroxyzine HCl 50 mg Tablet 50 mg PO Q8H PRN PRN (Reason: Anxiety) RF: 0 promethazine 25 MG tablet 25 mg PO Q6H PRN PRN (Reason: Nausea) Qty: 10 RF: 0 sertraline 100 mg Tablet 150 mg PO DAILY RF: 0 methotrexate sodium 2.5 mg Tablet 15 mg PO TU RF: 0 ergocalciferol (vitamin D2) 1,250 mcg (50,000 unit) Capsule 1,250 mcg PO WE RF: 0 famotidine 40 mg tablet 40 mg PO BID RF: 0 Creon 24,000-76,000 -120,000 unit capsule,delayed release(DR/EC) 2 cap PO TID RF: 0 Referrals / Follow Up: Diana Garcia MD [Primary Care Provider] - Within 1 Week Disposition Disposition (needs filled in before D/C Order can be placed): Home, Self Care
--- NOTE | 2022-01-27 08:07 | PCM.DC.SUM ---
Providers Date of Admission: 01/24/22 Date of Discharge: 01/27/22 Primary Care Physician: Dr. Diana Garcia MD Reason For Visit: ETOH ABUSE, DETOX Diagnosis Discharge Diagnosis (1) Admitted to alcohol detoxification center: Status: Acute Medications at Discharge Home Medications hydroxychloroquine 200 mg PO BID 09/26/20 pantoprazole [Protonix] 40 mg PO BID 03/17/21 atorvastatin 20 mg PO QHS 05/06/21 hydroxyzine HCl 50 mg PO Q8H PRN PRN 05/20/21 promethazine 25 mg PO Q6H PRN PRN #10 tablet 05/20/21 ergocalciferol (vitamin D2) 1,250 mcg PO WE 06/05/21 methotrexate sodium 15 mg PO TU 06/05/21 sertraline 150 mg PO DAILY 06/05/21 famotidine 40 mg PO BID 07/31/21 Creon 2 cap PO TID 08/17/21 folic acid 1 mg PO BREAKFAST #30 tab 01/27/22 thiamine HCl (vitamin B1) [Vitamin B-1] 100 mg PO DAILYCM #30 tab 01/27/22 Hospital Course Summary of Care Provided Hospital Course: The patient is a 51 y/o F with with multiple admissions for chronic alcohol use with multiple relapses came to ER for acute alcohol withdrawal syndrome. Patient drinks 750 mill of vodka every day. Her last drink was just prior to admission. Her last admission for medical stabilization of alcoholic withdrawal was a month ago in [place] and prior to that she was admitted in [facility] for same indication. #1. Acute EtOH Withdrawal syndrome with chronic alcohol use and dependence, tolerance and multiple relapses. Patient is being admitted on MedSurg floor. Patient on phenobarbital protocol along with gabapentin for seizure prophylaxis and multiple other adjunctive medications. Patient is counseled to quit alcohol. 180 consult. She is set up for outpatient follow-up. In ER for multiple readmission and labs, outpatient follow-up reinforced. #2. Hypokalemia: Serum magnesium and phosphorus level are normal. Potassium is getting replaced. 01/26: Repeat labs shows potassium 3.8, magnesium 1.7 and phosphorus 3.0. #3. CAD:continue aspirin cautiously given history, statin, not on beta-yovani or SAVAGE inhibitor/ARB. #4. SLE with history of cyst and nephritis/vasculitis: We will continue patient home methotrexate and high-dose folic acid regimen as well as Plaquenil. She has history of lupus and had lupus induced pancreatitis and omentitis. #5. Hypertension: Monitor blood pressure. On IV hydralazine. #6. Chronic intermittent asthma: No asthma exacerbation. On a scheduled Pulmicort. As needed albuterol. #7. Hyperlipidemia: continue patient on statin therapy. #8. GERD: We will continue patient home PPI. #9. Anxiety depression: continue patient home sertraline regimen. #10. History of pancreatitis: continue patient home Creon regimen. #11 DVT prophylaxis: Given type of admission will defer, encourage ambulation. Discharge medication reconciliation done. Discharge follow-up instructions completed. Discharge process discussed with the patient and all questions were answered to patient's satisfaction. Total time spent, exact 35 minutes on discharge meds reconciliation, examination, coordination of care with nurses and ancillary staff, review of imaging and blood test and discussion with the patient on follow-up instructions. Physical Exam Narrative Seen and examined on the day of discharge. No nausea, vomiting or abdominal pain. Patient withdrawal symptoms are well controlled. General: Alert, Oriented x3, Cooperative HEENT: Atraumatic, PERRLA, EOMI, Normocephalic Oral: No Gingival or Mucosal Lesions/ Ulcerations Neck: Supple, No JVD, Negative Carotid Bruits Lungs: Air entry diminished in bilateral lung bases. No crepitation/rhonchi Cardiovascular: Regular rate, Regular Rhythm, Normal S1, Normal S2, No murmurs Abdomen: Bowel Sounds Present, Soft, Non Tender, Non-Distended : No renal angle tenderness. No suprapubic tenderness. Extremities: No edema, Capillary Refill Less than 3 Seconds Skin: No rashes, No breakdown Musculoskeletal: Mild tremors of the hand. No Tenderness to Palpation of Joints or Extremities Neurological: Cranial nerves II-XII grossly intact, DTR 2+/4 and Symmetrical, Neuro grossly intact Psych/Mental Status: Flat affect. Weight / BMI Weight Weight: 136 lb Body Mass Index (BMI) 20.7 ABG / Lab / Microbiology Data Result Diagrams: 01/24/22 14:25 01/26/22 09:10 Laboratory: Laboratory Results - last 24 hr 01/26/22 09:10: Sodium 135 L, Potassium 3.8, Chloride 104, Carbon Dioxide 24.0, Anion Gap 7, BUN 5 L, Creatinine 0.73, Estim Creat Clear Calc 90.78, Est GFR (MDRD) Af Amer 109, Est GFR (MDRD) Non-Af 90, BUN/Creatinine Ratio 6.8 L, Glucose 124 H, Calcium 8.4 L, Phosphorus 3.0, Magnesium 1.7 D/C Instructions Discharge Diet: No restrictions Call your doctor if you observe: Fever of 101 or Higher, Coldness, Increased Pain, Numbness or Tingling, Change in Color, Inability to urinate, Inability to have a bowel movement, Shortness of breath, Dizziness, Fainting spells, Swelling in the ankles, Chest pain, Prolonged hiccupping, Increased palpitations (irregular heartbeat) and Calf discomfort Meaningful Use Info Meaningful Use Diagnoses (Choose all that apply): None applicable Discharge Plan Admission Admit Date/Time: 01/24/22 15:49 Primary Reason for Your Visit: Acute alcohol withdrawal syndrome Attending Provider: Tyler Barclay Primary Care Provider: Diana Garcia Instructions Additional Instructions / Restrictions: Follow-up outpatient substance use rehab as scheduled by 180 Discharge Orders/Prescriptions Prescriptions: New thiamine HCl (vitamin B1) [Vitamin B-1] 100 mg Tablet 100 mg PO DAILYCM Qty: 30 RF: 0 folic acid 1 mg Tablet 1 mg PO BREAKFAST Qty: 30 RF: 2 Continued hydroxychloroquine 200 MG tablet 200 mg PO BID RF: 0 pantoprazole [Protonix] 40 mg Tablet,Delayed Release (Dr/Ec) 40 mg PO BID RF: 0 atorvastatin 20 MG tablet 20 mg PO QHS RF: 0 hydroxyzine HCl 50 mg Tablet 50 mg PO Q8H PRN PRN (Reason: Anxiety) RF: 0 promethazine 25 MG tablet 25 mg PO Q6H PRN PRN (Reason: Nausea) Qty: 10 RF: 0 sertraline 100 mg Tablet 150 mg PO DAILY RF: 0 methotrexate sodium 2.5 mg Tablet 15 mg PO TU RF: 0 ergocalciferol (vitamin D2) 1,250 mcg (50,000 unit) Capsule 1,250 mcg PO WE RF: 0 famotidine 40 mg tablet 40 mg PO BID RF: 0 Creon 24,000-76,000 -120,000 unit capsule,delayed release(DR/EC) 2 cap PO TID RF: 0 Referrals / Follow Up: Diana Garcia MD [Primary Care Provider] - Within 1 Week (APPOINTMENT IS WITH ON January @ 1020AM.) Disposition Disposition (needs filled in before D/C Order can be placed): Home, Self Care
[2022-01-27 08:40] VITALS: BP 87/66; PULSE 75; RESP 18; TEMP 36.4; O2SAT 94
[2022-01-27] MEDS: Pantoprazole Sodium 40 MG Tablet PO (08:45)
[2022-01-27] MEDS: Creon 24,000 unit DR Capsule 2 CAP PO ×2 (08:45→11:54)
[2022-01-27] MEDS: Thiamine Hydrochloride 100 MG Tablet PO (08:45)
[2022-01-27] MEDS: Hydroxychloroquine 200 MG Tablet PO (08:45)
[2022-01-27] MEDS: Potassium Chloride Oral Tablet 20 MEQ 40 MEQ PO (08:46)
[2022-01-27] MEDS: Folic Acid 1 MG Tablet 2 MG PO (08:46)
--- NOTE | 2022-01-27 10:10 | PHA.DC.MR ---
Pharmacy Service has performed discharge medication reconciliation for this patient. The patient's discharge medication list was reviewed for discrepancies and discrepancies were resolved. Home Medications hydroxychloroquine 200 mg PO BID 09/26/20 pantoprazole [Protonix] 40 mg PO BID 03/17/21 atorvastatin 20 mg PO QHS 05/06/21 hydroxyzine HCl 50 mg PO Q8H PRN PRN 05/20/21 promethazine 25 mg PO Q6H PRN PRN #10 tablet 05/20/21 ergocalciferol (vitamin D2) 1,250 mcg PO WE 06/05/21 methotrexate sodium 15 mg PO TU 06/05/21 sertraline 150 mg PO DAILY 06/05/21 famotidine 40 mg PO BID 07/31/21 Creon 2 cap PO TID 08/17/21 folic acid 1 mg PO BREAKFAST #30 tab 01/27/22 thiamine HCl (vitamin B1) [Vitamin B-1] 100 mg PO DAILYCM #30 tab 01/27/22
--- NOTE | 2022-01-27 10:19 | ADDICTION ---
This worker met with pt to discuss d/c plan and go over The Addiction workbook.
[2022-01-27 11:45] VITALS: BP 93/62; PULSE 86; RESP 18; TEMP 37.2; O2SAT 98
== END 2022-01-27 12:52 | disposition home or self-care (01) | DRG 775 ==
LOC: ED 15:35 → MS3 16:10
PROVIDERS: Admitting Provider Family Medicine; Emergency Provider Emergency Medicine; PCP Internal Medicine; Visit Provider Internal Medicine
DX: F10.229 Alcohol dependence with intoxication, unspecified (principal); F10.239 Alcohol dependence with withdrawal, unspecified; M32.9 Systemic lupus erythematosus, unspecified; E78.5 Hyperlipidemia, unspecified; E87.6 Hypokalemia; K21.9 Gastro-esophageal reflux disease without esophagitis; F41.9 Anxiety disorder, unspecified; I10 Essential (primary) hypertension; M79.7 Fibromyalgia; I25.10 Atherosclerotic heart disease of native coronary artery without angina pectoris; J45.20 Mild intermittent asthma, uncomplicated; F32.A Depression, unspecified; Z79.899 Other long term (current) drug therapy; Y90.8 Blood alcohol level of 240 mg/100 ml or more
CPT/HCPCS: 36415; 71045; 73502; 80048; 80053; 80307; 81001; 82077; 83735; 84100; 85025; 93005; 94640; 99283; J7120; A4216; J2405

== ENCOUNTER 2022-05-02 18:31 | Emergency (ER) | payer MEDICAID, SELFPAY ==
[2022-05-02 18:34] VITALS: BP 123/100; PULSE 95; RESP 20; TEMP 37.4; O2SAT 94; BMI 22.8
--- NOTE | 2022-05-02 18:51 | EKG12_ITS ---
Test Reason : gen ill Blood Pressure : / mmHG Vent. Rate : 093 BPM Atrial Rate : 093 BPM P-R Int : 148 ms QRS Dur : 082 ms QT Int : 358 ms P-R-T Axes : 067 052 049 degrees QTc Int : 445 ms Normal sinus rhythm Normal ECG Confirmed by MENDEZ HICKMAN, BERNARD ([id number]), scientific editor MAGDY SPARKS ([id number]) on 05/04/2022 9:17:35 AM Referred By: Confirmed By:BERNARD SIMMS MD
--- NOTE | 2022-05-02 18:52 | EX.ED.DYSGE1 ---
HPI History of Present Illness Chief Complaint: General Illness [facility] Medical History Admitted to alcohol detoxification center Alcohol abuse Alcohol abuse Alcohol dependence with acute alcoholic intoxication Alcoholism Alcoholism Anxiety Anxiety and depression Asthma CAD (coronary artery disease) Cervical neuropathy Concussion Depression Dissection, vertebral artery Fibromyalgia Headache HTN (hypertension) Hypertension Injury due to fall Kidney stones Lupus nephritis Lupus vasculitis Musculoskeletal limb pain Myocardial infarct Pancreatitis Seizures Systemic lupus erythematosus Thrombocytopenia TIA (transient ischemic attack) Tympanic membrane rupture Home Medications hydroxychloroquine 200 mg tablet 200 mg PO BID lupus 09/26/20 [History Last Taken 08/17/21] pantoprazole 40 mg tablet,delayed release (Protonix) 40 mg PO BID ACID REFULX 03/17/21 [History Last Taken 08/17/21] atorvastatin 20 mg tablet 20 mg PO QHS cholesterol lowering 05/06/21 [History Last Taken 08/16/21] hydroxyzine HCl 50 mg tablet 50 mg PO Q8H PRN PRN Anxiety 05/20/21 [History Last Taken 08/17/21] promethazine 25 mg tablet 25 mg PO Q6H PRN PRN Nausea #10 TABLETS 05/20/21 [Rx Last Taken Unknown] ergocalciferol (vitamin D2) 1,250 mcg (50,000 unit) capsule 1,250 mcg PO WE SUPPLEMENT 06/05/21 [History Last Taken 08/15/21] methotrexate sodium 2.5 mg tablet 15 mg PO TU LUPUS 06/05/21 [History Last Taken 01/16/22] sertraline 100 mg tablet 150 mg PO DAILY depression 06/05/21 [History Last Taken 08/16/21] famotidine 40 mg tablet 40 mg PO BID gerd 07/31/21 [History Last Taken 08/17/21] yakvxi-juewdwxe-rewavtf 24,000-76,000-120,000 unit capsule,delayed rel (Creon) 2 cap PO TID STOMACH 08/17/21 [History Last Taken 4 Days Ago ~08/13/21] folic acid 1 mg tablet 1 mg PO BREAKFAST #30 tabs 01/27/22 [Rx Last Taken Unknown] thiamine HCl (vitamin B1) 100 mg tablet (Vitamin B-1) 100 mg PO DAILYCM #30 tabs 01/27/22 [Rx Last Taken Unknown] omeprazole 40 mg capsule,delayed release 40 mg PO DAILY #30 caps 05/02/22 [Rx Last Taken Unknown] ondansetron 4 mg disintegrating tablet 4 mg PO Q8H PRN nausea and vomiting #10 tabs 05/02/22 [Rx Last Taken Unknown] sucralfate 100 mg/mL oral suspension (Carafate) 1 g (10 mL) PO TID 2 weeks #400 mL 05/02/22 [Rx Last Taken Unknown] Allergy/AdvReac Type Severity Reaction Status Date / Time metoclopramide HCl Allergy anxious, Verified 05/02/22 18:34 [From Reglan] hives peanut Allergy Anaphylaxis Verified 05/02/22 18:34 Sulfa (Sulfonamide Allergy Hives Verified 05/02/22 18:34 Antibiotics) prednisone AdvReac psychosis Verified 05/02/22 18:34 prochlorperazine AdvReac anxious Verified 05/02/22 18:34 [From Compazine] Family History Father Diabetes CAD (coronary artery disease) Melanoma Mother Rheumatoid arthritis Melanoma Other Multiple sclerosis Surgical History H/O cervical spine surgery H/O knee surgery History of cholecystectomy History of hysterectomy S/P appendectomy Social History household members: none housing: apartment Smoking Status: Never smoker alcohol intake: current alcohol intake frequency: 3 or more drinks per day Alcohol type: hard liquor details: Patient reports only recently 2 [employer] hard lemonades, last at midnight. substance use type: does not use EXAM Physical Exam Const Vital Signs: 05/02/22 18:34 05/02/22 19:05 05/02/22 19:06 Temperature 99.3 F H Temperature Source Oral Pulse Rate 95 Respiratory Rate 20 H Respiratory Effort Normal Non-Labored Blood Pressure 123/100 H Blood Pressure Mean 107 Pulse Ox 94 97 Oxygen Delivery Method Room Air Room Air 05/02/22 19:11 05/02/22 20:35 Temperature Temperature Source Pulse Rate 95 Respiratory Rate 18 Respiratory Effort Blood Pressure Blood Pressure Mean Pulse Ox 95 Oxygen Delivery Method Room Air Positive well nourished General Appearance ED: NAD; Negative for pallor HEENT Reports moist mucous membranes Eyes PERRL and EOMs intact bilaterally Neck no lymphadenopathy Chest Wall inspection of chest normal and palpation of chest normal Resp normal respiratory effort Auscultation: Negative for rales, rhonchi or wheezes Cardio regular rate and regular rhythm GI Palpation: tender LLQ and LUQ Neuro oriented x3 and CN's II-XII intact bilaterally Sensorium / Orientation: alert Motor Exam: strength 5/5 throughout Skin no rashes or lesions noted, no wounds and skin turgor normal General Skin Exam: Negative for jaundice or pallor MDM MDM MDM Narrative Medical decision making narrative: 51-year-old female presenting with multiple complaints. She states she was told she had COVID and influenza at urgent care today. She was given nausea medicine and states that she vomited a couple of times. Patient states that she does believe she is having a lupus flare and that she has some a nonspecific rash on her face and was at the urgent care today and they told her she had MRSA in her nares and was given mupirocin ointment to put in her nose. I do not appreciate any vesicles here and there is a slight rash on her face which is nonspecific. Does not appear to be cellulitic. Patient also reported that she had some chest pains and abdominal pains which are consistent with her systemic lupus flares. I obtained an EKG which is normal sinus rhythm with ventricular rate of 93 bpm without sign of ischemic change. Her high sensitivity troponin is 3. Chest x-ray on my interpretation shows no acute cardiopulmonary process and the radiologist agree. Patient has recent travel out of town, history of lupus, reported history of COVID-19 currently and I did obtain a D-dimer and this was elevated at 1.09. A CTA of her chest that was performed because of this was negative for PE or dissection. There is no acute infiltrates. COVID testing today was negative in the emergency room. Patient's renal function is normal. Potassium slightly low at 3.2. We will withhold giving her potassium because she is nauseous. Patient's other complaint today is abdominal pain and she states it feels like her pancreatitis might be flared up by her lupus. Her abdominal exam is benign. She does have some mild tenderness in the left upper quadrant. After the patient told me that she did not want any pain medication because she is a recovering alcoholic she came out of the room and came into the physician's office and asked for pain medication. At this point she was given Zofran and Toradol and she states that does not help her at all and requesting thing stronger. This point she was given a dose of morphine 4 mg. Patient's LFTs are normal. Her lipase is normal. Her EtOH came back at 258. She states that she had only had 2 [employer]ikes hard lemonade's over the course of the last 2 days. This is different than her first statement that she was recovering alcoholic. I informed her at this point that if she needed detox I could admit her to the hospital to detox from alcohol. I did inform her that I cannot be given her narcotic pain medication for unsubstantiated pain. I did offer her a repeat dose of Zofran. I will give her a dose of Protonix in the ER. I suspect she likely has a gastritis from the drinking. She will be put on omeprazole 40 mg p.o. daily and given Carafate as well as Zofran for home. I recommended that she discontinue drinking if she needs help with that to come back for detox. I do not believe she needs any other work-up currently. Impression: 1. Chest pain noncardiac 2. Abdominal pain 3. EtOH abuse 4. Hypokalemia 5. History of lupus 6. Gastritis Lab Data Attestation: I reviewed the patient's lab results. Labs: Laboratory Results - last 24 hr 05/02/22 05/02/22 05/02/22 19:10 19:10 19:10 WBC 5.3 RBC 4.19 L Hgb 11.4 L Hct 35.1 L MCV 83.8 MCH 27.2 MCHC 32.5 RDW Std Deviation 53.2 H RDW Coeff of Leeann 17.5 H Plt Count 361 MPV 9.1 Immature Gran % (Auto) 0.200 Neut % (Auto) 43.7 L Lymph % (Auto) 40.3 [place] % (Auto) 13.8 H Eos % (Auto) 0.9 Baso % (Auto) 1.1 H Absolute Neuts (auto) 2.3 Absolute Lymphs (auto) 2.13 Nucleated RBC % 0 D-Dimer Quant (PE/DVT) 1.09 H* Sodium 137 Potassium 3.2 L Chloride 103 Carbon Dioxide 28.0 Anion Gap 6 BUN 8 Creatinine 0.68 Estim Creat Clear Calc 100.95 Est GFR (MDRD) Af Amer 117 Est GFR (MDRD) Non-Af 97 BUN/Creatinine Ratio 11.7 Glucose 121 H Calcium 8.6 Total Bilirubin 0.50 AST 31 ALT 28 Alkaline Phosphatase 67 Troponin I High Sens 3 Total Protein 7.0 Albumin 3.5 Globulin 3.5 Albumin/Globulin Ratio 1.0 Lipase 112 Ethyl Alcohol 05/02/22 19:10 WBC RBC Hgb Hct MCV MCH MCHC RDW Std Deviation RDW Coeff of Leeann Plt Count MPV Immature Gran % (Auto) Neut % (Auto) Lymph % (Auto) [place] % (Auto) Eos % (Auto) Baso % (Auto) Absolute Neuts (auto) Absolute Lymphs (auto) Nucleated RBC % D-Dimer Quant (PE/DVT) Sodium Potassium Chloride Carbon Dioxide Anion Gap BUN Creatinine Estim Creat Clear Calc Est GFR (MDRD) Af Amer Est GFR (MDRD) Non-Af BUN/Creatinine Ratio Glucose Calcium Total Bilirubin AST ALT Alkaline Phosphatase Troponin I High Sens Total Protein Albumin Globulin Albumin/Globulin Ratio Lipase Ethyl Alcohol 258.0 Radiography Diagnostic Testing: Clinical Impression(s) from Imaging Studies Chest X-Ray 05/02/22 19:10 IMPRESSION: There are no acute findings. Electronically Signed: Suleman Mart MD at 19:26 EDT , Chest CTA 05/02/22 19:38 IMPRESSION: Negative CTA chest. Electronically Signed: Suleman Mart MD at 20:40 EDT , Treatment and Re-Evaluation Narrative: 51-year-old female presenting with concern for a lupus flareup. She states this is usually managed with steroids and Ativan because she gets a steroid-induced psychosis. Patient reports that she just had travel to [place] in the airport she had an episode of syncope and was brought to the ER and they thought she might of had a TIA. She states her work-up was ultimately negative. Since she has been back she noticed that she is developed a little rash on the cheeks which is consistent with her lupus flare. She also is developing abdominal pain which she states feels like her previous history of pancreatitis. She states she does not own any longer drink. She states that she gets this kind of pain with her lupus flareups. She is also experiencing nausea and vomiting as well as diarrhea. She states she had a fever of 101 ?F she was seen at urgent care prior to coming here and was diagnosed with COVID, influenza, MRSA. She states that none of the testing had come back prior to these diagnoses. She states that the urgent care told her because she had some pustules in her nose that she definitely had MRSA and they put her on mupirocin. Patient states that she is also having some left-sided chest pain that radiates around to her left scapula. She states she gets this with a lupus flare and when she has pancreatitis. Patient does admit to history of syncopal episodes x2 since she has been home. Discharge Plan Triage Chief Complaint: General Illness ED Provider: Nestor Valenzuela Dx/Rx/DC Orders Instructions: ED Abdominal Pain Unkn Cause Fem, ED Chest Pain, Noncardiac, ED Alcohol Intoxication, ED PEPTIC ULCER vs GASTRITIS, ED Viral Syndrome (Adult) Prescriptions: New omeprazole 40 mg capsule,delayed release(DR/EC) 40 mg PO DAILY Qty: 30 0RF sucralfate [Carafate] 100 mg/mL suspension 1 g PO TID 14 Days Qty: 400 0RF ondansetron 4 mg tablet,disintegrating 4 mg PO Q8H PRN (Reason: nausea and vomiting) Qty: 10 0RF No Action hydroxychloroquine 200 MG tablet 200 mg PO BID pantoprazole [Protonix] 40 mg Tablet,Delayed Release (Dr/Ec) 40 mg PO BID atorvastatin 20 MG tablet 20 mg PO QHS hydroxyzine HCl 50 mg Tablet 50 mg PO Q8H PRN PRN (Reason: Anxiety) promethazine 25 MG tablet 25 mg PO Q6H PRN PRN (Reason: Nausea) Qty: 10 0RF sertraline 100 mg Tablet 150 mg PO DAILY methotrexate sodium 2.5 mg Tablet 15 mg PO TU ergocalciferol (vitamin D2) 1,250 mcg (50,000 unit) Capsule 1,250 mcg PO WE famotidine 40 mg tablet 40 mg PO BID Label Comments: take 1 tablet by mouth twice a day Creon 24,000-76,000 -120,000 unit capsule,delayed release(DR/EC) 2 cap PO TID Label Comments: take 2 capsules by mouth three times a day thiamine HCl (vitamin B1) [Vitamin B-1] 100 mg Tablet 100 mg PO DAILYCM Qty: 30 0RF folic acid 1 mg Tablet 1 mg PO BREAKFAST Qty: 30 2RF Primary Care Provider: Diana Garcia Referrals: Diana Garcia MD [Primary Care Provider] - Disposition Disposition: Home, Self Care
[2022-05-02 19:05] VITALS: O2SAT 97
[2022-05-02] MEDS: Ketorolac 15 MG/ML Vial IV (19:08)
[2022-05-02] MEDS: LORazepam 2 MG/ML Syringe 1 MG IV (19:08)
--- NOTE | 2022-05-02 19:10 | RAD_ITS ---
STUDY: X-RAY CHEST REASON FOR EXAM: Female, 51 years old. CHEST PAIN chest pain TECHNIQUE: XR Chest 1 View COMPARISON: 01/24/2022 FINDINGS: There is no demonstrated pleural abnormality. Cervical spine fusion hardware noted. Normal size heart. Normal mediastinum and umberto. Normal visualized pulmonary arteries. Normal visualized aortic arch and descending thoracic aorta. Normal visualized thoracic spine. Normal visualized ribs, clavicles, and shoulders. There is no demonstrated abnormality of the visualized soft tissue structures of the upper abdomen. RAD/Chest 1 View (Portable) IMPRESSION: There are no acute findings. Electronically Signed: Suleman Mart MD at 19:26 EDT ,
[2022-05-02 19:15] LABS: Absolute Lymphocyte Count 2.13 X10^3/uL (0.83-4.51); Absolute Neutrophil Count 2.3 X10^3/uL (2.0-7.7); Basophil# 0.06 X10^3/uL; Basophil% 1.1 % (0-1); Eosinophil# 0.05 X10^3/uL; Eosinophils% 0.9 % (0-5); Hematocrit 35.1 % (37-47); Hemoglobin 11.4 g/dL (12.0-15.0); Lymphocyte # 2.13 X10^3/ul (0.83-4.51); Lymphocyte % 40.3 % (19-41); Mean Corp Hgb Conc 32.5 g/dL (32-36); Mean Corpuscular Hgb 27.2 pg (27.0-32.0); Mean Corpuscular Volume 83.8 fL (81-99); Mean Platelet Vol. 9.1 fl (6.2-12.0); Monocyte# 0.73 X10^3/uL; Monocyte% 13.8 % (0-10); NRBC Flagged by Analyzer 0 % (0-5); Neutrophil % 43.7 % (47-70); Platelet Count 361 K/mm3 (150-450); RBC Distribution Width CV 17.5 % (11.6-14.6); RBC Distribution Width SD 53.2 fl (35.1-43.9); Red Blood Count 4.19 M/mm3 (4.2-5.4); White Blood Count 5.3 K/mm3 (4.4-11.0)
[2022-05-02 19:38] LABS: D-Dimer Quantitative (DVT/PE) 1.09 FEU/ug/m (0.27-0.49)
--- NOTE | 2022-05-02 19:38 | CT_ITS ---
EXAM: CT ANGIOGRAPHY CHEST WITHOUT AND WITH INTRAVENOUS CONTRAST CLINICAL INDICATION: chest pain TECHNIQUE: Helically acquired angiography images were obtained of the chest without and with intravenous contrast. This CT exam was performed using one or more of the following dose reduction techniques: automated exposure control, adjustment of the mA and/or kV according to patient size, and/or use of iterative reconstruction technique. This report was created using [employer] report generation technology. MIP reconstructed images were created and reviewed. CONTRAST: IV 100mL [id number] RADIATION DOSE: CTDIvol = 8.28 mGy, DLP = 200.82 mGy-cm COMPARISON: None. FINDINGS: PULMONARY ARTERIES: Unremarkable. Normal in caliber. No evidence of pulmonary embolism. AORTA: Unremarkable. Normal in caliber. No evidence of dissection. GREAT VESSELS OF AORTIC ARCH: Unremarkable. Normal in caliber. No evidence of dissection. LUNGS AND PLEURAL SPACES: Unremarkable. No mass. No consolidation or edema. No pleural effusion or thickening. No pneumothorax. HEART: Unremarkable. Heart size is normal. No pericardial effusion. No signs of right heart strain, ratio of right ventricle to left ventricle measures less than 1. MEDIASTINUM: Unremarkable. No mediastinal or hilar adenopathy. Esophagus is unremarkable. No hiatal hernia. THYROID: Unremarkable. No thyroid lesions. BONES/JOINTS: Unremarkable. No suspicious lytic or blastic abnormality. CT/CTA Chest W/WO Contrast IMPRESSION: Negative CTA chest. Electronically Signed: Suleman Mart MD at 20:40 EDT Reading Location ID and State: [facility] / [place] , Service support ,
--- NOTE | 2022-05-02 19:40 | ED.RN ---
notified Dr Valenzuela of critical D Dimer value of 1.09
[2022-05-02] MEDS: Ondansetron 4 MG/2 ML Vial IV ×2 (19:48→21:30)
--- NOTE | 2022-05-02 20:02 | ED.RN ---
PT HAS CALLED OUT THREE TIMES ABOUT PAIN MEDICATIONS. DR GLOVER MADE AWARE.
[2022-05-02 20:08] LABS: AST(SGOT) 31 U/L (15-37); Alanine Aminotransfer ALT/SGPT 28 U/L (13-56); Albumin, Serum 3.5 g/dL (3.2-5.0); Alkaline Phosphatase 67 U/L (45-117); Anion Gap 6 (5-15); BUN 8 mg/dL (7-18); BUN/Creat Ratio 11.7 RATIO (10-20); Calcium,Total 8.6 mg/dL (8.5-10.1); Chloride 103 mmol/L (98-107); Creatinine, Serum 0.68 mg/dL (0.55-1.02); EST Glomerular Filtration Rate 97 mL/min (>60); Est Glom Filt Rate - Afr Amer 117 mL/min (>60); Estimated Creatinine Clearance 100.95 ml/min; Globulin 3.5 g/dL (2.2-4.2); Glucose 121 mg/dL (74-106); Lipase 112 U/L (73-393); Potassium 3.2 mmol/L (3.5-5.1); Sodium Level 137 mmol/L (136-145); Troponin-I HS (w/2H Reflex) 3 pg/mL (3.0-54.0)
[2022-05-02] MEDS: Morphine 4 MG/ML Syringe IV (20:12)
[2022-05-02 20:35] VITALS: PULSE 95; RESP 18; O2SAT 95
[2022-05-02] MEDS: Pantoprazole Sodium 40 MG Tablet PO (21:43)
[2022-05-02 21:59] VITALS: BP 107/80; PULSE 88; RESP 16; O2SAT 98
== END 2022-05-02 22:00 | disposition home or self-care (01) ==
PROVIDERS: Emergency Provider Student in an Organized Health Care Education/Training Program; PCP Internal Medicine; Visit Provider Student in an Organized Health Care Education/Training Program
DX: K29.70 Gastritis, unspecified, without bleeding (principal); D68.62 Lupus anticoagulant syndrome; E87.6 Hypokalemia; I25.10 Atherosclerotic heart disease of native coronary artery without angina pectoris; R07.89 Other chest pain; I10 Essential (primary) hypertension; F10.10 Alcohol abuse, uncomplicated; Z79.899 Other long term (current) drug therapy
CPT/HCPCS: 83690; 87811; 96376; 71045; 93005; 80048; 80053; 80320; 84484; 99283; J2405; 71275; 85379; 96374; 96375; Q9967; 85025; 82077

== ENCOUNTER 2022-05-04 15:46 | Inpatient (IN) | payer MEDICAID, SELFPAY ==
[2022-05-04 15:47] VITALS: BP 129/87; PULSE 113; RESP 16; TEMP 36.2; O2SAT 99; BMI 22.8
[2022-05-04 16:11] VITALS: BP 109/69; PULSE 87; RESP 17; TEMP 36.7; O2SAT 95
--- NOTE | 2022-05-04 16:15 | EX.ED.DYSGE1 ---
HPI History of Present Illness Chief Complaint: ETOH Intox Informant: patient Onset/Context/Timing Onset: Month(s) Context: Gradual Onset Timing: Continuous Current Severity: Mild Maximum Severity: Mild Narrative Narrative: 51-year-old female history of alcoholism, pulmonary emboli on Coumadin, lupus and pancreatitis history. States she abuses alcohol and drinks about a bottle of vodka a day. She said she is feeling to the point that she wants help and wants to be admitted for detox. She denies any recent admissions or prior detox. Prior similar symptoms: Yes Recent Illness/Hospitalization: No [facility] Medical History Admitted to alcohol detoxification center Alcohol abuse Alcohol abuse Alcohol dependence with acute alcoholic intoxication Alcoholism Alcoholism Anxiety Anxiety and depression Asthma CAD (coronary artery disease) Cervical neuropathy Concussion Depression Dissection, vertebral artery Fibromyalgia Headache HTN (hypertension) Hypertension Injury due to fall Kidney stones Lupus nephritis Lupus vasculitis Musculoskeletal limb pain Myocardial infarct Pancreatitis Pulmonary embolism Seizures Systemic lupus erythematosus Thrombocytopenia TIA (transient ischemic attack) Tympanic membrane rupture Home Medications hydroxychloroquine 200 mg tablet 200 mg PO BID lupus 09/26/20 [History Last Taken 08/17/21] pantoprazole 40 mg tablet,delayed release (Protonix) 40 mg PO BID ACID REFULX 03/17/21 [History Last Taken 08/17/21] atorvastatin 20 mg tablet 20 mg PO QHS cholesterol lowering 05/06/21 [History Last Taken 08/16/21] ergocalciferol (vitamin D2) 1,250 mcg (50,000 unit) capsule 1,250 mcg PO WE SUPPLEMENT 06/05/21 [History Last Taken 08/15/21] methotrexate sodium 2.5 mg tablet 15 mg PO TU LUPUS 06/05/21 [History Last Taken 01/16/22] sertraline 100 mg tablet 150 mg PO DAILY depression 06/05/21 [History Last Taken 08/16/21] famotidine 40 mg tablet 40 mg PO BID gerd 07/31/21 [History Last Taken 08/17/21] vofsdk-cyrmpbln-xafvsex 24,000-76,000-120,000 unit capsule,delayed rel (Creon) 2 cap PO TID STOMACH 08/17/21 [History Last Taken 4 Days Ago ~08/13/21] folic acid 1 mg tablet 1 mg PO BREAKFAST #30 tabs 01/27/22 [Rx Last Taken Unknown] thiamine HCl (vitamin B1) 100 mg tablet (Vitamin B-1) 100 mg PO DAILYCM #30 tabs 01/27/22 [Rx Last Taken Unknown] omeprazole 40 mg capsule,delayed release 40 mg PO DAILY #30 caps 05/02/22 [Rx Last Taken Unknown] ondansetron 4 mg disintegrating tablet 4 mg PO Q8H PRN nausea and vomiting #10 tabs 05/02/22 [Rx Last Taken Unknown] sucralfate 100 mg/mL oral suspension (Carafate) 1 g (10 mL) PO TID 2 weeks #400 mL 05/02/22 [Rx Last Taken Unknown] Allergy/AdvReac Type Severity Reaction Status Date / Time metoclopramide HCl Allergy anxious, Verified 05/04/22 15:59 [From Reglan] hives peanut Allergy Anaphylaxis Verified 05/04/22 15:59 Sulfa (Sulfonamide Allergy Hives Verified 05/04/22 15:59 Antibiotics) prednisone AdvReac psychosis Verified 05/04/22 15:59 prochlorperazine AdvReac anxious Verified 05/04/22 15:59 [From Compazine] Family History Father Diabetes CAD (coronary artery disease) Melanoma Mother Rheumatoid arthritis Melanoma Other Multiple sclerosis Surgical History H/O cervical spine surgery H/O knee surgery History of cholecystectomy History of hysterectomy S/P appendectomy Social History household members: none housing: apartment Smoking Status: Current every day smoker tobacco type: e-cigarettes alcohol intake: current alcohol intake frequency: 3 or more drinks per day Alcohol type: hard liquor details: Patient reports only recently 2 nicholas[employer] hard lemonades, last at midnight. substance use type: does not use ROS ROS ED ROS Narrative Nausea and vomiting and diarrhea. No melena. Review of Systems ROS Unobtainable: Denies due to encephalopathy Constitutional Constitutional ED: Denies chills or fever(s) Eyes Eyes: Denies blurry vision ENT ENT ED: Denies ear pain Cardiovascular Cardiovascular: Reports chest pain Respiratory/Chest Respiratory/Chest: Denies cough Gastrointestinal Gastrointestinal: Reports abdominal pain, diarrhea, nausea and vomiting; Denies constipation or melena Genitourinary Genitourinary ED: Denies dysuria or hematuria Musculoskeletal Musculoskeletal: Denies arthralgias Integumentary Denies abscess Neurologic Neurologic: Denies headache(s) Psychiatric Psychiatric: Denies anxiety Endocrine Endocrinology: Denies cold intolerance Hematologic/Lymphatic Hematologic/Lymphatic: Reports none Allergic/Immunologic Allergic/Immunologic ED: Denies mouth swelling or tongue swelling EXAM Physical Exam Narrative Exam Narrative: Middle-aged female no acute distress. Vital signs stable afebrile. H EENT exam unremarkable. Moist with membranes. Neck nontender no lymphadenopathy. Lungs clear to auscultation bilaterally. Heart regular rhythm rate about 90 no murmur. Abdomen soft nondistended normal bowel sounds no peritoneal signs. Moving all 4 extremities. 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 Dorsi plantarflexion intact. Calves nontender without edema or cords. Neurologically she is awake and alert with no focal motor deficits. Most likely is intoxicated. Const Vital Signs: 05/04/22 15:47 05/04/22 15:47 05/04/22 16:11 Temperature 97.1 F L 97.1 F L 98.1 F Temperature Source Temporal Temporal Oral Pulse Rate 113 H 113 H 87 Respiratory Rate 16 16 17 Blood Pressure 129/87 H 129/87 H 109/69 Blood Pressure Mean 101 101 82 Blood Pressure Source Monitor Blood Pressure Position Supine Blood Pressure Location Left Arm Pulse Ox 99 99 95 Oxygen Delivery Method Room Air Room Air Room Air Positive well nourished and well developed; Negative for obese, cachectic, contractures or unkempt General Appearance ED: well developed and NAD; Negative for unkempt, cachectic, contractures, cyanotic or diaphoretic Nutritional Appearance: Negative for cachectic or obese HEENT Reports moist mucous membranes Negative for trauma Eyes PERRL and EOMs intact bilaterally General Eye ED: Negative for pale conjunctiva or scleral icterus Neck no lymphadenopathy, supple and no JVD General: Negative for tenderness Chest Wall inspection of chest normal and palpation of chest normal Resp normal respiratory effort and clear to auscultation bilaterally Effort and Inspection: Negative for retractions Auscultation: Negative for rales, rhonchi or wheezes Cardio regular rate, regular rhythm, S1 normal heart sound, S2 normal heart sound and no murmurs Rate: Negative for bradycardia or tachycardic Rhythm: Negative for abnormal rhythm GI normal to inspection, nondistended, normoactive bowel sounds, non-tender, non-distended and no masses Inspection: Negative for abdominal distention Auscultation: normoactive bowel sounds Palpation: soft Back/Spine no CVA tenderness General Back: Negative for CVA tenderness Cervical Spine: Negative for cervical spine tenderness Thoracic Spine / Upper Back: Negative for thoracic spinal tenderness Lumbar Spine / Lower Back: Negative for lumbar spinal tenderness Extremity normal to inspection General Extremety ED: Negative for edema General Extremity: Negative for edema Neuro oriented x3 and CN's II-XII intact bilaterally Sensorium / Orientation: alert; Negative for orientation impaired, lethargic or stuporous Motor Exam: strength 5/5 throughout Psych mental status grossly normal Appearance: Negative for unkempt Attitude: No agitated Mood & Affect: Negative for depressed or anxious Skin no rashes or lesions noted and no wounds General Skin Exam: Negative for elasticity normal Lesions: No lesion noted Rashes: No rashes noted Trauma: Negative for abrasion Wounds: Negative for wounds noted MDM MDM MDM Narrative Medical decision making narrative: 51-year-old female with alcohol abuse requesting detox. She did extensive work-up 2 days ago which was negative including a CTA of her chest. Normal blood counts and electrolytes. Normal lipase. Normal CTA of her chest. I will speak to the hospitalist about admission and see if they want any other additional testing. Lab Data Lab results narrative: I reviewed the patient's labs from her ER visit 2 days ago. At that time she did not want detox. Labs: CBC unremarkable white count of 6. H&H 12 and 37. Her PT/INR is subtherapeutic with an INR of 1.1. Her electrolytes are unremarkable. Gap of 8. Normal BUN and creatinine. Her lipase is elevated at 1079 consistent with pancreatitis. Discharge Plan Dx/Rx/DC Orders Clinical Impression: Alcoholism, Admitted to alcohol detoxification center, History of pulmonary embolism, Chronic anticoagulation, History of lupus, Acute alcoholic pancreatitis Disposition Disposition: Acute Care Hospital [facility] Discharge Date/Time: 05/04/22 17:36
--- NOTE | 2022-05-04 16:21 | HP.PCM.HOS_ITS ---
HPI - General General Date of Admission: 05/04/22 Date of Service: 05/04/22 Chief Complaint: Acute EtOH withdrawal, detoxification request HPI Narrative The patient is a 51 y/o F w/ PMHx: ? Recent history of [place], Anxiety and Depression, Hx Pancreatitis, Asthma, CAD, Hx vertebral dissection, HTN, HLD, Lupus w/ associated nephritis/vasculitis, Hx seizures, EtOH abuse with ~ 1 bottle vodka daily with frequent hospitalizations for EtOH detoxification, most recently at [facility] 01/2022 who presents to the [facility] ED on 05/04/22 with history of 4 months of recent sobriety however on day of presentation she notes that she started drinking again and had several drinks of vodka 1 to 2 hours prior to ED presentation but realized her mistake and notes that she had been traveling for work and that when she was doing so several people around her would talk about alcohol prompting this onset of oral alcohol intake again. She states that she is very adamant and would like to be sober again and is interested in detoxification. In the past she would drink approximately 1 bottle of vodka daily. She is now complaining of tactile disturbances, mild nausea as well as headache and reports that she feels mildly tremulous. Work-up in the ED included T97.1, heart rate 113, BP 129/87, respiratory rate 16, 99% on room air, CBC with WC 6.1, hemoglobin 12.2, platelet 365 without marked shift, coags with INR 1.1, CMP with potassium 3.4, AST/ALT 71/68, alk phos 120, lipase 1070. In the ED patient ministered Ativan 1 mg p.o. x1. [facility] Medical History Admitted to alcohol detoxification center Alcohol abuse Alcohol abuse Alcohol dependence with acute alcoholic intoxication Alcoholism Alcoholism Anxiety Anxiety and depression Asthma CAD (coronary artery disease) Cervical neuropathy Concussion Depression Dissection, vertebral artery Fibromyalgia Headache HTN (hypertension) Hypertension Injury due to fall Kidney stones Lupus nephritis Lupus vasculitis Musculoskeletal limb pain Myocardial infarct Pancreatitis Pulmonary embolism Seizures Systemic lupus erythematosus Thrombocytopenia TIA (transient ischemic attack) Tympanic membrane rupture Home Medications hydroxychloroquine 200 mg tablet 200 mg PO BID lupus 09/26/20 [History Last Taken 08/17/21] pantoprazole 40 mg tablet,delayed release (Protonix) 40 mg PO BID ACID REFULX 03/17/21 [History Last Taken 08/17/21] atorvastatin 20 mg tablet 20 mg PO QHS cholesterol lowering 05/06/21 [History Last Taken 08/16/21] ergocalciferol (vitamin D2) 1,250 mcg (50,000 unit) capsule 1,250 mcg PO WE SUPPLEMENT 06/05/21 [History Last Taken 08/15/21] methotrexate sodium 2.5 mg tablet 15 mg PO TU LUPUS 06/05/21 [History Last Taken 01/16/22] sertraline 100 mg tablet 150 mg PO DAILY depression 06/05/21 [History Last Taken 08/16/21] famotidine 40 mg tablet 40 mg PO BID gerd 07/31/21 [History Last Taken 08/17/21] jehitw-jwouccqg-yjfsfmd 24,000-76,000-120,000 unit capsule,delayed rel (Creon) 2 cap PO TID STOMACH 08/17/21 [History Last Taken 4 Days Ago ~08/13/21] folic acid 1 mg tablet 1 mg PO BREAKFAST #30 tabs 01/27/22 [Rx Last Taken Unknown] thiamine HCl (vitamin B1) 100 mg tablet (Vitamin B-1) 100 mg PO DAILYCM #30 tabs 01/27/22 [Rx Last Taken Unknown] omeprazole 40 mg capsule,delayed release 40 mg PO DAILY #30 caps 05/02/22 [Rx Last Taken Unknown] ondansetron 4 mg disintegrating tablet 4 mg PO Q8H PRN nausea and vomiting #10 tabs 05/02/22 [Rx Last Taken Unknown] sucralfate 100 mg/mL oral suspension (Carafate) 1 g (10 mL) PO TID 2 weeks #400 mL 05/02/22 [Rx Last Taken Unknown] Allergy/AdvReac Type Severity Reaction Status Date / Time metoclopramide HCl Allergy anxious, Verified 05/04/22 15:59 [From Reglan] hives peanut Allergy Anaphylaxis Verified 05/04/22 15:59 Sulfa (Sulfonamide Allergy Hives Verified 05/04/22 15:59 Antibiotics) prednisone AdvReac psychosis Verified 05/04/22 15:59 prochlorperazine AdvReac anxious Verified 05/04/22 15:59 [From Compazine] Family History Father Diabetes CAD (coronary artery disease) Melanoma Mother Rheumatoid arthritis Melanoma Other Multiple sclerosis Surgical History H/O cervical spine surgery H/O knee surgery History of cholecystectomy History of hysterectomy S/P appendectomy Social History household members: none housing: apartment Smoking Status: Current every day smoker tobacco type: e-cigarettes alcohol intake: current alcohol intake frequency: 3 or more drinks per day Alcohol type: hard liquor details: Patient reports only recently 2 nicholas[employer] hard lemonades, last at midnight. substance use type: does not use ROS ROS Narrative Admission Review of Systems: CONSTITUTIONAL: No weight loss, fever, chills, + weakness or fatigue. HEENT: Eyes: No visual loss, blurred vision, double vision or yellow sclerae. Ears, Nose, Throat: No hearing loss, sneezing, congestion, runny nose or sore throat. SKIN: No rash or itching, lesions, wounds. CARDIOVASCULAR: No chest pain, chest pressure or chest discomfort, palpitations, edema, orthopnea, syncopal events. RESPIRATORY: No shortness of breath, cough or sputum, wheezing, hemoptysis. GASTROINTESTINAL: + anorexia, nausea without vomiting, No diarrhea, abdominal pain, melena, BRBPR. GENITOURINARY: No dysuria, frequency, urgency or retention. NEUROLOGICAL: + Tremors, tactile disturbances, No headache, dizziness, syncope, paralysis, ataxia, numbness or tingling in the extremities, focal weakness, change in bowel or bladder control, seizure. MUSCULOSKELETAL:+ muscle, back pain, joint pain or stiffness. HEMATOLOGIC: No anemia, bleeding or bruising. LYMPHATICS: No enlarged nodes. No history of splenectomy. PSYCHIATRIC: + history of depression or anxiety. ENDOCRINOLOGIC: No reports of sweating, cold or heat intolerance. No polyuria or polydipsia. ALLERGIES: + history of hives, rhinitis. Vital Signs Vital Signs Vital Signs: 05/04/22 15:47 05/04/22 15:47 05/04/22 16:11 Temperature 97.1 F L 97.1 F L 98.1 F Temperature Source Temporal Temporal Oral Pulse Rate 113 H 113 H 87 Respiratory Rate 16 16 17 Blood Pressure 129/87 H 129/87 H 109/69 Blood Pressure Mean 101 101 82 Blood Pressure Source Monitor Blood Pressure Position Supine Blood Pressure Location Left Arm Pulse Ox 99 99 95 Oxygen Delivery Method Room Air Room Air Room Air Weight Weight: 150 lb 11.094 oz Body Mass Index (BMI) 22.8 Physical Exam Narrative Physical Examination: General: Awake, alert, oriented x 3 and cooperative, seated upright in the ED bed, anxious, tearful, notes she is upset at herself, notes feeling nauseated, tremulous. HEENT: AT/NC, EOMI, PERRLA, mildly dry MM, no carotid bruits or JVD noted. Lungs: CTA bilaterally, moderate effort, mild decrease BL bases, no rales, ronchi or wheezing. Heart: Mildly tachycardic with regular rhythm; no gallop, rub audible. Abdomen: Soft, no TTP even in the epigastric region, ND, mildly hyperactive BS, no HSM. Extremities: No cyanosis, clubbing, or edema. Neurological: Patient awake, alert, oriented as noted, cognitive function intact; pupils equally reactive to light and accommodation, cranial nerves II- XII grossly normal, moving all 4 extremities, no focal deficits, strength mildly to moderately global decreased, mildly tremulous. Psychiatric: Affect appears tearful, anxious, underlying history of depression and anxiety. Results Lab / Micro Data Result Diagrams: 05/04/22 16:55 05/04/22 16:55 Assessment & Plan Assessment/Plan (1) Alcohol withdrawal: PLAN: Plan The patient is a 51 y/o F w/ PMHx: ? Recent history of [place], Anxiety and Depression, Hx Pancreatitis, Asthma, CAD, Hx vertebral dissection, HTN, HLD, Lupus w/ associated nephritis/vasculitis, Hx seizures, EtOH abuse with ~ 1 bottle vodka daily with frequent hospitalizations for EtOH detoxification, most recently at [facility] 01/2022 who presents to the [facility] ED on 05/04/22 with history of 4 months of recent sobriety however on day of presentation she notes that she started drinking again and had several drinks of vodka 1 to 2 hours prior to ED presentation but realized her mistake and notes that she had been traveling for work and that when she was doing so several people around her would talk about alcohol prompting this onset of oral alcohol intake again. #1.? Acute EtOH Withdrawal: Will admit to [facility], routine labs obtained in the ED upon presentation, given interest in sobriety, will initiate and continue on protocol with taper course of Phenobarbital, scheduled gabapentin for seizure prophylaxis, as needed Catapres, Bentyl, Vistaril, IV fluids, IV antiemetics, Tylenol as needed for pain. Will consult Case management for assistance for transition to next level of rehabilitation care. Mag, phos pending. #2.? History of pancreatitis, chronic with elevated lipase upon presentation with chronically elevated LFTs: Upon presentation patient does have lipase 1079 but no marked abdominal pain on evaluation or from patient complaints, will co ntinue to hydrate and maintain on home Creon regimen. #3.? ? Recent history of pulmonary embolism: [place], says she was started on Coumadin however she is significantly subtherapeutic, will hold Coumadin especially given unclear dosing and planned usage of phenobarb and in the interim transition to therapeutic Lovenox. #5. Hypokalemia: Admission K+ 3.4, magnesium level requested, supplementation given, repeat level in AM. #6.? GERD w/ recent gastritis: We will continue patient home PPI high dose, famotidine, sucralafate. #7.? CAD: Not on asa given recent gastritis, resume once cleared, continue home statin, not on beta-yovani or SAVAGE inhibitor/ARB. #8.? SLE with history of cyst and nephritis/vasculitis: We will continue patient home methotrexate (dosed Tuesday) and high-dose folic acid regimen as well as Plaquenil. #9.? Hypertension: Per current list not on regimen, will monitor and if appropriate add regimen, as needed IV hydralazine. #10.? Asthma: Not on regimen, PRN albuterol, encourage HOB, IS. #11. Hyperlipidemia: We will continue patient on statin therapy. #12.? Anxiety depression: We will continue patient home sertraline regimen. #13. DVT prophylaxis: Will hold coumadin given subtherapeutic and also starting phenobarbital taper, will transition temporarily to therapeutic lovenox. Charges/Coding Visit Charges Inpatient E&M: 48349 Init Hosp L3
[2022-05-04 17:03] VITALS: BP 108/73; PULSE 81; RESP 16; TEMP 36.6; O2SAT 96
[2022-05-04] MEDS: LORazepam 1 MG Tablet PO (17:05)
[2022-05-04 17:09] LABS: Absolute Lymphocyte Count 2.19 X10^3/uL (0.83-4.51); Absolute Neutrophil Count 3.4 X10^3/uL (2.0-7.7); Basophil# 0.06 X10^3/uL; Eosinophil# 0.04 X10^3/uL; Eosinophils% 0.7 % (0-5); Hematocrit 37.3 % (37-47); Hemoglobin 12.2 g/dL (12.0-15.0); Lymphocyte # 2.19 X10^3/ul (0.83-4.51); Lymphocyte % 35.7 % (19-41); Mean Corp Hgb Conc 32.7 g/dL (32-36); Mean Corpuscular Hgb 27.4 pg (27.0-32.0); Mean Corpuscular Volume 83.8 fL (81-99); Mean Platelet Vol. 9.3 fl (6.2-12.0); Monocyte# 0.43 X10^3/uL; NRBC Flagged by Analyzer 0 % (0-5); Neutrophil # 3.39 X10^3/uL (2.7-7.7); Neutrophil % 55.3 % (47-70); Platelet Count 365 K/mm3 (150-450); RBC Distribution Width CV 17.3 % (11.6-14.6); RBC Distribution Width SD 52.9 fl (35.1-43.9); Red Blood Count 4.45 M/mm3 (4.2-5.4); White Blood Count 6.1 K/mm3 (4.4-11.0)
[2022-05-04 17:16] VITALS: BP 108/73; PULSE 81; RESP 16; TEMP 36.6; O2SAT 96
[2022-05-04 17:19] LABS: International Normalized Ratio 1.1; Prothrombin Time (Protime)PT. 13.9 SECONDS (11.7-14.9)
[2022-05-04 17:20] LABS: Phosphorus 3.1 mg/dL (2.5-4.9)
[2022-05-04 17:21] LABS: AST(SGOT) 71 U/L (15-37); Alanine Aminotransfer ALT/SGPT 68 U/L (13-56); Albumin, Serum 3.7 g/dL (3.2-5.0); Alkaline Phosphatase 120 U/L (45-117); Anion Gap 8 (5-15); BUN 10 mg/dL (7-18); BUN/Creat Ratio 13.7 RATIO (10-20); Calcium,Total 8.6 mg/dL (8.5-10.1); Chloride 105 mmol/L (98-107); Creatinine, Serum 0.73 mg/dL (0.55-1.02); EST Glomerular Filtration Rate 89 mL/min (>60); Est Glom Filt Rate - Afr Amer 108 mL/min (>60); Estimated Creatinine Clearance 94.04 ml/min; Globulin 3.7 g/dL (2.2-4.2); Glucose 106 mg/dL (74-106); Lipase 1079 U/L (73-393); Magnesium 2.2 mg/dL (1.6-2.6); Potassium 3.4 mmol/L (3.5-5.1); Protein, Total 7.4 g/dL (6.4-8.2); Sodium Level 140 mmol/L (136-145)
[2022-05-04 17:44] VITALS: BMI 22.5
[2022-05-04 17:56] VITALS: BP 120/85; PULSE 78; RESP 18; TEMP 36.6; O2SAT 97
[2022-05-04] MEDS: 0.9% Saline Lock 10 ML Syringe IV (18:58)
[2022-05-04] MEDS: Phenobarbital 32.4 MG Tablet 64.8 MG PO ×2 (18:58→21:48)
[2022-05-04] MEDS: Lactated Ringers 1,000 ML 125 ML IV (18:58)
[2022-05-04] MEDS: Ondansetron 8 MG Tablet PO (18:58)
[2022-05-04] MEDS: Gabapentin 300 MG Capsule PO (18:58)
[2022-05-04] MEDS: Dicyclomine 10 MG Capsule 20 MG PO (19:01)
[2022-05-04] MEDS: hydrOXYzine PAM 25 MG Capsule 50 MG PO (19:01)
--- NOTE | 2022-05-04 21:44 | CM.ED ---
TIMOTHY Note Referral Reason: BEV AGUIRRE met with patient. She reports she is at the hospital for [facility] program. Jennifer stated that her last drink was today but she is not sure what time it was. Patient has been drinking a bottle of vodka a day. Patient was sober for 4 months and then has been drinking for 1 1/2 weeks, per her report. Patient reports she needs treatment. Patient verbalized understanding of the rules of the [facility] program. TIMOTHY called addiction therapist Jose L Lemons Updated her regarding patient's admission. Jose L indicated that patient can come to the [facility] program for detox only if she agrees to residential. Jose L said that if she patient does not accept residential placement at discharge she will need to be monitored for detox but NOT under the [facility] program. TIMOTHY spoke to patient. She agreed to doing residential at discharge. Patient said I don't want to do it but I know I need to do it. Patient said I told that girl if I came back I would do residential. Plan: BEV LINO
[2022-05-04] MEDS: Potassium Chloride Oral Tablet 20 MEQ 40 MEQ PO (21:48)
[2022-05-04] MEDS: Enoxaparin 80 MG/0.8 ML Syringe 70 MG SC (21:49)
[2022-05-04] MEDS: Pantoprazole Sodium 40 MG Tablet PO (21:50)
[2022-05-04] MEDS: Famotidine 20 MG Tablet 40 MG PO (21:50)
[2022-05-04] MEDS: Hydroxychloroquine 200 MG Tablet PO (21:52)
[2022-05-04] MEDS: Atorvastatin Calcium 20 MG Tablet PO (21:54)
[2022-05-04 22:00] VITALS: BP 118/78; PULSE 76; RESP 16; TEMP 36.7; O2SAT 97
[2022-05-05] VITALS (7 sets, daily range): BP systolic 108–144; BP diastolic 64–84; PULSE 74–90; RESP 16–20; TEMP 36.7–37; O2SAT 95–98
[2022-05-05] MEDS: Ondansetron 8 MG Tablet PO ×3 (02:51→20:05)
[2022-05-05] MEDS: Phenobarbital 32.4 MG Tablet 64.8 MG PO ×6 (02:51→23:13)
[2022-05-05] MEDS: Sucralfate 1 GM Tablet PO ×3 (06:09→18:01)
[2022-05-05 07:17] LABS: International Normalized Ratio 1.2; Prothrombin Time (Protime)PT. 14.8 SECONDS (11.7-14.9)
--- NOTE | 2022-05-05 07:48 | PCM.PN.HOSP ---
Subjective Subjective Patient is a 51-year-old lady with history of chronic alcohol abuse admitted with acute alcohol withdrawal Objective Data Objective Data Vital Signs: Vital Signs Temp Pulse Resp BP Pulse Ox O2 Del Method 98.1 F 90 16 121/84 H 97 Room Air 05/05/22 06:00 05/05/22 06:00 05/05/22 06:00 05/05/22 06:00 05/05/22 06:00 05/05/22 06:00 Oxygen Delivery Method Room Air Weight: 67.313 kg Body Mass Index (BMI) 22.5 Intake & Output: Intake and Output for Last 24 Hours 05/03/22 05/04/22 05/05/22 23:59 23:59 23:59 Intake Total 1000 / 1000 Balance 1000 / 1000 Lab / Micro Data Result Diagrams: 05/04/22 16:55 05/04/22 16:55 Labs: Laboratory Results - last 24 hr 05/04/22 16:55: WBC 6.1, RBC 4.45, Hgb 12.2, Hct 37.3, MCV 83.8, MCH 27.4, MCHC 32.7, RDW Std Deviation 52.9 H, RDW Coeff of Leeann 17.3 H, Plt Count 365, MPV 9.3, Immature Gran % (Auto) 0.300, Neut % (Auto) 55.3, Lymph % (Auto) 35.7, Harrison % (Auto) 7.0, Eos % (Auto) 0.7, Baso % (Auto) 1.0, Absolute Neuts (auto) 3.4, Absolute Lymphs (auto) 2.19, Nucleated RBC % 0 05/04/22 16:55: PT 13.9, INR 1.1 05/04/22 16:55: Sodium 140, Potassium 3.4 L, Chloride 105, Carbon Dioxide 27.0, Anion Gap 8, BUN 10, Creatinine 0.73, Estim Creat Clear Calc 94.04, Est GFR (MDRD) Af Amer 108, Est GFR (MDRD) Non-Af 89, BUN/Creatinine Ratio 13.7, Glucose 106, Calcium 8.6, Magnesium 2.2, Total Bilirubin 0.40, AST 71 H, ALT 68 H, Alkaline Phosphatase 120 H, Total Protein 7.4, Albumin 3.7, Globulin 3.7, Albumin/Globulin Ratio 1.0, Lipase 1079 H 05/04/22 16:55: Phosphorus 3.1 05/05/22 06:40: PT 14.8, INR 1.2 Physical Exam Narrative GENERAL: cooperative HEENT: Atraumatic; EYES; Anicteric, Normal Conjunctiva NECK; supple, normal thyroid, RESPIRATORY: Diminished to auscultation CARDIOVASCULAR:? Regular S1 S2, GI:? soft, normoactive bowel sounds, : No Renal angle tenderness; EXTREMITIES:? No edema, no clubbing, MUSCULOSKELETAL:? no muscle waisting NEURO:? Awake;? no lateralizing signs. SKIN:? No Rash PSYCH; Flat? affect Assessment & Plan Assessment/Plan (1) Alcohol withdrawal: PLAN: Plan Patient is a 51-year-old lady with history of chronic alcohol abuse admitted with acute alcohol withdrawal 1.? Acute alcohol withdrawal ?Patient has been admitted to regular nursing floor currently undergoing stabilization using phenobarb taper 2.? Abdominal pain ? Patient has history of chronic pancreatitis plan is to treat symptomatically. Also on Creon for supplementation did continue 3.? Lupus ?Patient is on hydroxychloroquine as well as methotrexate did continue 4.? Recent C. difficile colitis ?Patient was treated appropriately 5.? Dyslipidemia -Patient is on statin therapy, continued at home dose 6.? GERD ?On Protonix 7.? Depression with anxiety ?Patient is on sertraline 8.? DVT prophylaxis -low risk did encourage early ambulation Charges/Coding Visit Charges Inpatient E&M: 18188 Subs Hosp L2
[2022-05-05] MEDS: Thiamine Hydrochloride 100 MG Tablet PO (07:55)
[2022-05-05] MEDS: Folic Acid 1 MG Tablet PO (07:55)
[2022-05-05] MEDS: Creon 24,000 unit DR Capsule 2 CAP PO ×3 (07:56→18:01)
[2022-05-05] MEDS: Famotidine 20 MG Tablet 40 MG PO ×2 (09:17→21:25)
[2022-05-05] MEDS: Enoxaparin 80 MG/0.8 ML Syringe 70 MG SC ×2 (09:17→21:24)
[2022-05-05] MEDS: Ergocalciferol 1.25 MG (50, 000 UNIT) Capsule PO (09:18)
[2022-05-05] MEDS: Pantoprazole Sodium 40 MG Tablet PO ×2 (09:18→21:26)
[2022-05-05] MEDS: Sertraline 100 MG Tablet 150 MG PO (09:18)
[2022-05-05] MEDS: Hydroxychloroquine 200 MG Tablet PO ×2 (09:20→21:25)
--- NOTE | 2022-05-05 10:33 | CT_ITS ---
STUDY: CT ABDOMEN AND PELVIS WITH CONTRAST REASON FOR EXAM: Female, 51 years old. Acute pancreatitis RADIATION DOSAGE (If Supplied By Facility): CTDIvol = ( 11.63 ) mGy, DLP = ( 730.93 ) mGycm TECHNIQUE: Transaxial images were obtained from the dome of the diaphragm to the symphysis pubis with oral contrast. Oral and amp; IV Gastrografin and amp; 100mL Isovue-300 was administered. Sagittal and coronal images were reconstructed. Individualized dose optimization techniques were used for this CT. COMPARISON: Comparison is made with prior study dated 06/05/2021. FINDINGS: The visualized lung bases are unremarkable. The visualized portions of the heart are within normal limits. There is decreased attenuation of the liver consistent with steatosis. The patient is status post cholecystectomy. Normal spleen. There is diffuse enlargement of the pancreas with kalyani-pancreatic edema suggesting acute pancreatitis. Small amount of free fluid is seen in the subhepatic space. Normal bilateral adrenal glands. Normal right kidney. Normal left kidney. Normal visualized stomach. Normal small intestine. Diffuse thickening of the colonic wall throughout its course in keeping with the pain and colitis. This is worse in the right hemicolon. Sigmoid diverticulosis. There is non-visualization of the appendix. Normal abdominal aorta. Normal inferior vena cava. Normal retroperitoneum. Normal urinary bladder. There is a 3.4 cm x 3 cm cyst in the left ovary. Normal abdominal wall. Normal osseous structures. CT/Abdomen/Pelvis WITH Contrast IMPRESSION: Diffuse colitis. Findings in keeping with acute pancreatitis. Fatty infiltration of the liver. Electronically Signed: Perry Sorenson MD at 13:18 EDT ,
[2022-05-05] MEDS: Contrast Allergy Safety Check IV (11:11)
[2022-05-05] MEDS: Morphine 4 MG/ML Syringe IV ×4 (11:17→21:27)
--- NOTE | 2022-05-05 14:15 | ADDICTION ---
Addiction therapist attempted to meet with pt to do ASAM MSE AUDIT DUDIT. PT reported I am not here for RAMP, I am not going to residential either. I am here for pancreatitis. This worker informed charge nurse.
--- NOTE | 2022-05-05 14:26 | CASEMGMT ---
Social Work SW in to speak with pt regarding Advanced Directives. Pt reports she has both documents and named her mother, Apolinar Faulkner, as her HCPOA. SW informed pt that [facility] does not have these documents on file. Pt stated she must have been confused and that it must be [facility] that has them on file. Pt stating she will bring in these documents to be scanned. DARLINE Hammond
--- NOTE | 2022-05-05 17:57 | EKG12_ITS ---
Test Reason : Blood Pressure : / mmHG Vent. Rate : 080 BPM Atrial Rate : 080 BPM P-R Int : 160 ms QRS Dur : 090 ms QT Int : 398 ms P-R-T Axes : 059 041 045 degrees QTc Int : 459 ms Normal sinus rhythm Normal ECG When compared with ECG of 02-MAY-2022 18:57, No significant change was found Confirmed by NAVEEN HICKMAN, AMANDA ([id number]), newspaper managing editor ANH BEARD ([id number]) on 05/07/2022 2:43:00 PM Referred By: SUNITA Confirmed By:AVINASH HODGE MD
[2022-05-05] MEDS: 0.9% Saline Lock 10 ML Syringe IV ×2 (18:01→21:27)
[2022-05-05 18:59] LABS: Troponin-I HS < 3 pg/mL (3.0-54.0)
[2022-05-05] MEDS: hydrOXYzine PAM 25 MG Capsule 50 MG PO (20:05)
[2022-05-05] MEDS: Gabapentin 300 MG Capsule PO (20:06)
[2022-05-05] MEDS: Atorvastatin Calcium 20 MG Tablet PO (21:25)
[2022-05-05 21:37] LABS: Troponin-I HS < 3 pg/mL (3.0-54.0)
[2022-05-05] MEDS: traZODone 100 MG Tablet PO (21:41)
[2022-05-06] VITALS (7 sets, daily range): BP systolic 108–127; BP diastolic 66–83; PULSE 75–88; RESP 16–18; TEMP 36.5–36.9; O2SAT 97–99
[2022-05-06 01:27] LABS: Troponin-I HS 4 pg/mL (3.0-54.0)
[2022-05-06] MEDS: Morphine 4 MG/ML Syringe IV ×5 (01:37→15:30)
[2022-05-06] MEDS: 0.9% Saline Lock 10 ML Syringe IV ×4 (01:37→23:04)
[2022-05-06] MEDS: Phenobarbital 32.4 MG Tablet 64.8 MG PO ×6 (03:20→21:52)
[2022-05-06] MEDS: Ondansetron 8 MG Tablet PO (05:50)
[2022-05-06] MEDS: Sucralfate 1 GM Tablet PO (06:39)
[2022-05-06 07:32] LABS: AST(SGOT) 36 U/L (15-37); Alanine Aminotransfer ALT/SGPT 41 U/L (13-56); Albumin, Serum 2.9 g/dL (3.2-5.0); Alkaline Phosphatase 104 U/L (45-117); Anion Gap 6 (5-15); BUN 3 mg/dL (7-18); BUN/Creat Ratio 4.8 RATIO (10-20); Bilirubin, Direct 0.18 mg/dL (0.00-0.30); Calcium,Total 7.8 mg/dL (8.5-10.1); Chloride 104 mmol/L (98-107); Creatinine, Serum 0.63 mg/dL (0.55-1.02); EST Glomerular Filtration Rate 106 mL/min (>60); Est Glom Filt Rate - Afr Amer 128 mL/min (>60); Estimated Creatinine Clearance 107.77 ml/min; Globulin 2.8 g/dL (2.2-4.2); Glucose 99 mg/dL (74-106); Lipase 1844 U/L (73-393); Magnesium 1.5 mg/dL (1.6-2.6); Potassium 3.6 mmol/L (3.5-5.1); Protein, Total 5.7 g/dL (6.4-8.2); Sodium Level 137 mmol/L (136-145)
[2022-05-06] MEDS: Creon 24,000 unit DR Capsule 2 CAP PO (07:46)
[2022-05-06] MEDS: Folic Acid 1 MG Tablet PO (07:46)
[2022-05-06] MEDS: Thiamine Hydrochloride 100 MG Tablet PO (07:47)
[2022-05-06] MEDS: Famotidine 20 MG Tablet 40 MG PO ×2 (07:47→11:28)
--- NOTE | 2022-05-06 07:47 | PN.HOSP_ITS ---
Subjective Subjective Patient seen still complains of significant abdominal discomfort CT of the abdomen demonstrated findings consistent with acute pancreatitis as well as diffuse colitis and fatty liver infiltration. Consult placed to GI. Also did send stool for C. difficile. Objective Data Objective Data Vital Signs: Vital Signs Temp Pulse Resp BP Pulse Ox O2 Del Method 97.8 F 75 16 108/72 97 Room Air 05/06/22 07:43 05/06/22 07:43 05/06/22 07:43 05/06/22 07:43 05/06/22 07:43 05/06/22 07:43 Oxygen Delivery Method Room Air Weight: 67.313 kg Body Mass Index (BMI) 22.5 Intake & Output: Intake and Output for Last 24 Hours 05/04/22 05/05/22 05/06/22 23:59 23:59 23:59 Intake Total 1999 826 / 826 Balance 1999 826 / 826 Lab / Micro Data Result Diagrams: 05/04/22 16:55 05/06/22 06:30 Labs: Laboratory Results - last 24 hr 05/05/22 18:10: Troponin I High Sens < 3 L 05/05/22 21:10: Troponin I High Sens < 3 L 05/06/22 00:10: Troponin I High Sens 4 05/06/22 06:30: Sodium 137, Potassium 3.6, Chloride 104, Carbon Dioxide 27.0, Anion Gap 6, BUN 3 L, Creatinine 0.63, Estim Creat Clear Calc 107.77, Est GFR (MDRD) Af Amer 128, Est GFR (MDRD) Non-Af 106, BUN/Creatinine Ratio 4.8 L, Glucose 99, Calcium 7.8 L, Magnesium 1.5 L, Total Bilirubin 0.60, Direct Bilirubin 0.18, AST 36, ALT 41, Alkaline Phosphatase 104, Total Protein 5.7 L, Albumin 2.9 L, Globulin 2.8, Lipase 1844 H Radiography Diagnostic Testing: Radiology Impression Abdomen/Pelvis CT 05/05/22 10:33 IMPRESSION: Diffuse colitis. Findings in keeping with acute pancreatitis. Fatty infiltration of the liver. Electronically Signed: Perry Sorenson MD at 13:18 EDT , Physical Exam Narrative GENERAL: cooperative HEENT: Atraumatic; EYES; Anicteric, Normal Conjunctiva NECK; supple, normal thyroid, RESPIRATORY: Diminished to auscultation CARDIOVASCULAR:? Regular S1 S2, GI:? soft, normoactive bowel sounds, : No Renal angle tenderness; EXTREMITIES:? No edema, no clubbing, MUSCULOSKELETAL:? no muscle waisting NEURO:? Awake;? no lateralizing signs. SKIN:? No Rash PSYCH; Flat? affect Assessment & Plan Assessment/Plan (1) Alcohol withdrawal: PLAN: Plan Patient is a 51-year-old lady with history of chronic alcohol abuse admitted with acute alcohol withdrawal 1.? Abdominal pain secondary to colitis and acute pancreatitis ? 05/06/2022atient seen still complains of significant abdominal discomfort CT of the abdomen demonstrated findings consistent with acute pancreatitis as well as diffuse colitis and fatty liver infiltration. Consult placed to GI. Also did send stool for C. difficile. 2. Chronic alcohol dependence with early acute alcohol withdrawal ?Patient has been admitted to regular nursing floor currently undergoing sta bilization using phenobarb taper 3.? Lupus ?Patient is on hydroxychloroquine as well as methotrexate did continue 4.? Recent C. difficile colitis ?Patient was treated appropriately 5.? Dyslipidemia -Patient is on statin therapy, continued at home dose 6.? GERD ?On Protonix 7.? Depression with anxiety ?Patient is on sertraline 8.? DVT prophylaxis -low risk did encourage early ambulation Charges/Coding Visit Charges Inpatient E&M: 71871 Subs Hosp L2
[2022-05-06] MEDS: Hydroxychloroquine 200 MG Tablet PO ×2 (09:40→21:52)
[2022-05-06] MEDS: Enoxaparin 80 MG/0.8 ML Syringe 70 MG SC ×2 (09:40→21:52)
[2022-05-06] MEDS: Pantoprazole Sodium 40 MG Tablet PO ×2 (09:40→21:52)
[2022-05-06] MEDS: Sertraline 100 MG Tablet 150 MG PO (09:41)
[2022-05-06] MEDS: Ondansetron 4 MG/2 ML Vial IV (11:29)
[2022-05-06] MEDS: Magnesium Sulfate 4gm/100mL 4 GM/100 ML IV.SOLN. IV (15:15)
--- NOTE | 2022-05-06 17:16 | PCM.CONS.GEN ---
Assessment & Plan Assessment/Plan (1) Acute alcoholic pancreatitis: PLAN: Acute alcoholic pancreatitis with a low Bunny score. By imaging it is mild to moderate pancreatitis without any signs of necrosis. She is also not had any transformation of her pancreatitis. She did get a lot of pain when trying to eat more solid food today. Recommend to increase IV fluids to 20 cc an hour. Continue Protonix therapy. I will give her azithromycin and Reglan for ileus associated with pancreatitis. Blood sugar/ (2) Abdominal pain: PLAN: Her abdominal pain factorial. I feel like it is mostly coming from Her pancreatitis recommend azithromycin 500 mg daily x5 days, Reglan 10 mg every 6h x5 days. HPI Consult Data Date of Consult: 05/10/22 HPI Narrative Reason for Consultation: pancreatitis HPI Narrative: QUINTIN CEE, is a 52 F who presents history of alcoholism, pulmonary emboli on Coumadin, lupus and pancreatitis history.? States she abuses alcohol and drinks about a bottle of vodka a day.? She said she is feeling to the point that she wants help and wants to be admitted for detox.? She denies any recent admissions or prior detox. In the ED she was discovered to have laboratories analysis consistent with alcoholic hepatitis and alcoholic pancreatitis. She has had episodes of alcohol induced in the past. She did has any chest pain or shortness of breath. She denies any nausea weakness or dizziness. She states that she is very adamant and would like to be sober again and is interested in detoxification.? In the past she would drink approximately 1 bottle of vodka daily.? She is now complaining of tactile disturbances, mild nausea as well as headache and reports that she feels mildly tremulous.? Work-up in the ED included T97.1, heart rate 113, BP 129/87, respiratory rate 16, 99% on room air, CBC with WC 6.1, hemoglobin 12.2, platelet 365 without marked shift, coags with INR 1.1, CMP with potassium 3.4, AST/ALT 71/68, alk phos 120, lipase 1070.? In the ED patient ministered Ativan 1 mg p.o. x1. PFSH Medical History Admitted to alcohol detoxification center Alcohol abuse Alcohol abuse Alcohol dependence with acute alcoholic intoxication Alcoholism Alcoholism Anxiety Anxiety and depression Asthma CAD (coronary artery disease) Cervical neuropathy Concussion Depression Dissection, vertebral artery Fibromyalgia Headache HTN (hypertension) Hypertension Injury due to fall Kidney stones Lupus nephritis Lupus vasculitis Musculoskeletal limb pain Myocardial infarct Pancreatitis Pulmonary embolism Seizures Systemic lupus erythematosus Thrombocytopenia TIA (transient ischemic attack) Tympanic membrane rupture Home Medications hydroxychloroquine 200 mg tablet 200 mg PO BID lupus 09/26/20 [History Last Taken 08/17/21] pantoprazole 40 mg tablet,delayed release (Protonix) 40 mg PO BID ACID REFULX 03/17/21 [History Last Taken 08/17/21] atorvastatin 20 mg tablet 20 mg PO QHS cholesterol lowering 05/06/21 [History Last Taken 08/16/21] ergocalciferol (vitamin D2) 1,250 mcg (50,000 unit) capsule 1,250 mcg PO WE SUPPLEMENT 06/05/21 [History Last Taken 08/15/21] methotrexate sodium 2.5 mg tablet 15 mg PO TU LUPUS 06/05/21 [History Last Taken 01/16/22] sertraline 100 mg tablet 150 mg PO DAILY depression 06/05/21 [History Last Taken 08/16/21] famotidine 40 mg tablet 40 mg PO BID gerd 07/31/21 [History Last Taken 08/17/21] urprrz-gtlsylbt-sdmciyn 24,000-76,000-120,000 unit capsule,delayed rel (Creon) 2 cap PO TID STOMACH 08/17/21 [History Last Taken 4 Days Ago ~08/13/21] folic acid 1 mg tablet 1 mg PO BREAKFAST #30 tabs 01/27/22 [Rx Last Taken Unknown] thiamine HCl (vitamin B1) 100 mg tablet (Vitamin B-1) 100 mg PO DAILYCM #30 tabs 01/27/22 [Rx Last Taken Unknown] omeprazole 40 mg capsule,delayed release 40 mg PO DAILY #30 caps 05/02/22 [Rx Last Taken Unknown] ondansetron 4 mg disintegrating tablet 4 mg PO Q8H PRN nausea and vomiting #10 tabs 05/02/22 [Rx Last Taken Unknown] sucralfate 100 mg/mL oral suspension (Carafate) 1 g (10 mL) PO TID 2 weeks #400 mL 05/02/22 [Rx Last Taken Unknown] Allergy/AdvReac Type Severity Reaction Status Date / Time metoclopramide HCl Allergy anxious, Verified 05/04/22 15:59 [From Reglan] hives peanut Allergy Anaphylaxis Verified 05/04/22 15:59 Sulfa (Sulfonamide Allergy Hives Verified 05/04/22 15:59 Antibiotics) prednisone AdvReac psychosis Verified 05/04/22 15:59 prochlorperazine AdvReac anxious Verified 05/04/22 15:59 [From Compazine] Family History Father Diabetes CAD (coronary artery disease) Melanoma Mother Rheumatoid arthritis Melanoma Other Multiple sclerosis Surgical History H/O cervical spine surgery H/O knee surgery History of cholecystectomy History of hysterectomy S/P appendectomy Social History household members: none housing: apartment Smoking Status: Current every day smoker tobacco type: e-cigarettes alcohol intake: current alcohol intake frequency: 3 or more drinks per day Alcohol type: hard liquor details: Patient reports only recently 2 nicholas[employer] hard lemonades, last at midnight. substance use type: does not use ROS ROS Narrative Admission Review of Systems: CONSTITUTIONAL: No weight loss, fever, chills, + weakness or fatigue. HEENT: Eyes: No visual loss, blurred vision, double vision or yellow sclerae. Ears, Nose, Throat: No hearing loss, sneezing, congestion, runny nose or sore throat. SKIN: No rash or itching, lesions, wounds. CARDIOVASCULAR: No chest pain, chest pressure or chest discomfort, palpitations, edema, orthopnea, syncopal events. RESPIRATORY: No shortness of breath, cough or sputum, wheezing, hemoptysis. GASTROINTESTINAL: + anorexia, nausea without vomiting, No diarrhea, abdominal pain, melena, BRBPR. GENITOURINARY: No dysuria, frequency, urgency or retention. NEUROLOGICAL: + Tremors, tactile disturbances, No headache, dizziness, syncope, paralysis, ataxia, numbness or tingling in the extremities, focal weakness, change in bowel or bladder control, seizure. MUSCULOSKELETAL:+ muscle, back pain, joint pain or stiffness. HEMATOLOGIC: No anemia, bleeding or bruising. LYMPHATICS: No enlarged nodes. No history of splenectomy. PSYCHIATRIC: + history of depression or anxiety. ENDOCRINOLOGIC: No reports of sweating, cold or heat intolerance. No polyuria or polydipsia. ALLERGIES: + history of hives, rhinitis. Physical Exam Narrative GENERAL: cooperative HEENT: Atraumatic; EYES; Anicteric, Normal Conjunctiva NECK; supple, normal thyroid, RESPIRATORY: Diminished to auscultation CARDIOVASCULAR:? Regular S1 S2, GI:? soft, normoactive bowel sounds, : No Renal angle tenderness; EXTREMITIES:? No edema, no clubbing, MUSCULOSKELETAL:? no muscle waisting NEURO:? Awake;? no lateralizing signs. SKIN:? No Rash PSYCH; Flat? affect Lab / Micro Data Result Diagrams: 05/07/22 05:43 05/07/22 05:43 Labs: Laboratory Results - last 24 hr 05/05/22 18:10: Troponin I High Sens < 3 L 05/05/22 21:10: Troponin I High Sens < 3 L 05/06/22 00:10: Troponin I High Sens 4 05/06/22 06:30: Sodium 137, Potassium 3.6, Chloride 104, Carbon Dioxide 27.0, Anion Gap 6, BUN 3 L, Creatinine 0.63, Estim Creat Clear Calc 107.77, Est GFR (MDRD) Af Amer 128, Est GFR (MDRD) Non-Af 106, BUN/Creatinine Ratio 4.8 L, Glucose 99, Calcium 7.8 L, Magnesium 1.5 L, Total Bilirubin 0.60, Direct Bilirubin 0.18, AST 36, ALT 41, Alkaline Phosphatase 104, Total Protein 5.7 L, Albumin 2.9 L, Globulin 2.8, Lipase 1844 H Micro: Microbiology 05/06/22 11:10 Stool C. difficile DNA Amplification - Final Charges/Coding Visit Charges Inpatient E&M: 94254 Init Hosp L2
[2022-05-06] MEDS: proMETHazine 25 MG Tablet PO (18:27)
[2022-05-06] MEDS: HYDROmorphone 1 MG/ML Syringe IV ×2 (18:27→23:03)
[2022-05-06] MEDS: DiphenhydrAMINE 50 MG/ML Syringe 25 MG IV (20:24)
[2022-05-06] MEDS: Atorvastatin Calcium 20 MG Tablet PO (21:52)
[2022-05-07 02:21] VITALS: BP 108/77; PULSE 90; RESP 18; TEMP 36.6; O2SAT 98
[2022-05-07] MEDS: proMETHazine 25 MG Tablet PO (02:27)
[2022-05-07] MEDS: Dicyclomine 10 MG Capsule 20 MG PO (02:27)
[2022-05-07] MEDS: 0.9% Saline Lock 10 ML Syringe IV ×2 (05:09→09:20)
[2022-05-07] MEDS: HYDROmorphone 1 MG/ML Syringe IV ×2 (05:09→09:20)
[2022-05-07 05:56] LABS: Absolute Neutrophil Count 3.8 X10^3/uL (2.0-7.7); Basophil# 0.04 X10^3/uL; Basophil% 0.7 % (0-1); Eosinophil# 0.26 X10^3/uL; Eosinophils% 4.4 % (0-5); Hematocrit 29.3 % (37-47); Hemoglobin 9.2 g/dL (12.0-15.0); Lymphocyte % 23.6 % (19-41); Mean Corp Hgb Conc 31.4 g/dL (32-36); Mean Corpuscular Hgb 27.3 pg (27.0-32.0); Mean Corpuscular Volume 86.9 fL (81-99); Monocyte# 0.44 X10^3/uL; Monocyte% 7.4 % (0-10); NRBC Flagged by Analyzer 0 % (0-5); Neutrophil # 3.78 X10^3/uL (2.7-7.7); Neutrophil % 63.6 % (47-70); Platelet Count 222 K/mm3 (150-450); RBC Distribution Width CV 16.9 % (11.6-14.6); RBC Distribution Width SD 53.5 fl (35.1-43.9); Red Blood Count 3.37 M/mm3 (4.2-5.4); White Blood Count 5.9 K/mm3 (4.4-11.0)
[2022-05-07 06:39] LABS: AST(SGOT) 30 U/L (15-37); Alanine Aminotransfer ALT/SGPT 36 U/L (13-56); Albumin, Serum 2.8 g/dL (3.2-5.0); Alkaline Phosphatase 99 U/L (45-117); Anion Gap 3 (5-15); BUN 2 mg/dL (7-18); BUN/Creat Ratio 3.9 RATIO (10-20); Calcium,Total 7.7 mg/dL (8.5-10.1); Chloride 105 mmol/L (98-107); Creatinine, Serum 0.52 mg/dL (0.55-1.02); EST Glomerular Filtration Rate 134 mL/min (>60); Est Glom Filt Rate - Afr Amer 162 mL/min (>60); Estimated Creatinine Clearance 130.56 ml/min; Globulin 2.9 g/dL (2.2-4.2); Glucose 100 mg/dL (74-106); Magnesium 2.2 mg/dL (1.6-2.6); Phosphorus 2.8 mg/dL (2.5-4.9); Potassium 3.8 mmol/L (3.5-5.1); Protein, Total 5.7 g/dL (6.4-8.2); Sodium Level 136 mmol/L (136-145)
--- NOTE | 2022-05-07 07:36 | PN.HOSP_ITS ---
Subjective Subjective Patient seen pain is tolerable. Objective Data Objective Data Vital Signs: Vital Signs Temp Pulse Resp BP Pulse Ox O2 Del Method 97.9 F 90 18 108/77 98 Room Air 05/07/22 02:21 05/07/22 02:21 05/07/22 02:21 05/07/22 02:21 05/07/22 02:21 05/07/22 02:21 Oxygen Delivery Method Room Air Weight: 67.313 kg Body Mass Index (BMI) 22.5 Intake & Output: Intake and Output for Last 24 Hours 05/05/22 05/06/22 05/07/22 23:59 23:59 23:59 Intake Total 1999 3880 / 3880 1873.33 / 1873.33 Balance 1999 3880 / 3880 1873.33 / 1873.33 Lab / Micro Data Result Diagrams: 05/07/22 05:43 05/07/22 05:43 Labs: Laboratory Results - last 24 hr 05/07/22 05:43: WBC 5.9, RBC 3.37 L, Hgb 9.2 L, Hct 29.3 L, MCV 86.9, MCH 27.3, MCHC 31.4 L, RDW Std Deviation 53.5 H, RDW Coeff of Leeann 16.9 H, Plt Count 222, MPV 10.0, Immature Gran % (Auto) 0.300, Neut % (Auto) 63.6, Lymph % (Auto) 23.6, [place] % (Auto) 7.4, Eos % (Auto) 4.4, Baso % (Auto) 0.7, Absolute Neuts (auto) 3.8, Absolute Lymphs (auto) 1.40, Nucleated RBC % 0 05/07/22 05:43: Sodium 136, Potassium 3.8, Chloride 105, Carbon Dioxide 28.0, Anion Gap 3 L, BUN 2 L, Creatinine 0.52 L, Estim Creat Clear Calc 130.56, Est GFR (MDRD) Af Amer 162, Est GFR (MDRD) Non-Af 134, BUN/Creatinine Ratio 3.9 L, Glucose 100, Calcium 7.7 L, Phosphorus 2.8, Magnesium 2.2, Total Bilirubin 0.30, AST 30, ALT 36, Alkaline Phosphatase 99, Total Protein 5.7 L, Albumin 2.8 L, Globulin 2.9, Albumin/Globulin Ratio 1.0 Micro: Microbiology 05/06/22 11:10 Stool C. difficile DNA Amplification - Final Physical Exam Narrative GENERAL: cooperative HEENT: Atraumatic; EYES; Anicteric, Normal Conjunctiva NECK; supple, normal thyroid, RESPIRATORY: Diminished to auscultation CARDIOVASCULAR:? Regular S1 S2, GI:? soft, normoactive bowel sounds, : No Renal angle tenderness; EXTREMITIES:? No edema, no clubbing, MUSCULOSKELETAL:? no muscle waisting NEURO:? Awake;? no lateralizing signs. SKIN:? No Rash PSYCH; Flat? affect Assessment & Plan Assessment/Plan (1) Alcohol withdrawal: PLAN: Plan Patient is a 51-year-old lady with history of chronic alcohol abuse admitted with acute alcohol withdrawal 1.? Abdominal pain secondary to colitis and acute pancreatitis ? 05/06/2022atient seen still complains of significant abdominal discomfort CT of the abdomen demonstrated findings consistent with acute pancreatitis as well as diffuse colitis and fatty liver infiltration. Consult placed to GI. Also did send stool for C. difficile. ? 05/07/2022 patient was seen in consultation by Dr. Duarte with gastroenterology's notes recommendations and orders reviewed. 2. Chronic alcohol dependence with early acute alcohol withdrawal ?Patient has been admitted to regular nursing floor currently undergoing stabilization using phenobarb taper 3.? Lupus ?Patient is on hydroxychloroquine as well as methotrexate did continue 4.? Recent C. difficile colitis ?Patient was treated appropriately 5.? Dyslipidemia -Patient is on statin therapy, continued at home dose 6.? GERD ?On Protonix 7.? Depression with anxiety ?Patient is on sertraline 8.? DVT prophylaxis -low risk did encourage early ambulation Charges/Coding Visit Charges Inpatient E&M: 35717 Subs Hosp L2
[2022-05-07 07:47] VITALS: O2SAT 98
[2022-05-07 08:30] VITALS: BP 109/72; PULSE 78; RESP 18; TEMP 36.8; O2SAT 98
[2022-05-07] MEDS: Creon 24,000 unit DR Capsule 2 CAP PO (08:30)
[2022-05-07] MEDS: Famotidine 20 MG Tablet 40 MG PO (08:30)
[2022-05-07] MEDS: Folic Acid 1 MG Tablet PO (08:31)
[2022-05-07] MEDS: Thiamine Hydrochloride 100 MG Tablet PO (08:31)
[2022-05-07] MEDS: Sertraline 100 MG Tablet 150 MG PO (08:32)
[2022-05-07] MEDS: Pantoprazole Sodium 40 MG Tablet PO (08:32)
[2022-05-07] MEDS: Hydroxychloroquine 200 MG Tablet PO (08:32)
--- NOTE | 2022-05-07 09:00 | PN_ITS ---
Subjective Subjective There were no events overnight. She has been getting pain medicine and antihistamine therapy for itching associated with narcotic pain medicine. Objective Data Objective Data Vital Signs: Vital Signs Temp Pulse Resp BP Pulse Ox O2 Del Method 97.9 F 90 18 108/77 98 Room Air 05/07/22 02:21 05/07/22 02:21 05/07/22 02:21 05/07/22 02:21 05/07/22 07:47 05/07/22 07:47 Oxygen Delivery Method Room Air Weight: 148 lb 6.396 oz Body Mass Index (BMI) 22.5 Intake & Output: Intake and Output for Last 24 Hours 05/05/22 05/06/22 05/07/22 23:59 23:59 23:59 Intake Total 1999 3880 / 3880 1873.33 / 1873.33 Balance 1999 3880 / 3880 1873.33 / 1873.33 Lab / Micro Data Result Diagrams: 05/07/22 05:43 05/07/22 05:43 Labs: Laboratory Results - last 24 hr 05/07/22 05:43: WBC 5.9, RBC 3.37 L, Hgb 9.2 L, Hct 29.3 L, MCV 86.9, MCH 27.3, MCHC 31.4 L, RDW Std Deviation 53.5 H, RDW Coeff of Leeann 16.9 H, Plt Count 222, MPV 10.0, Immature Gran % (Auto) 0.300, Neut % (Auto) 63.6, Lymph % (Auto) 23.6, [place] % (Auto) 7.4, Eos % (Auto) 4.4, Baso % (Auto) 0.7, Absolute Neuts (auto) 3.8, Absolute Lymphs (auto) 1.40, Nucleated RBC % 0 05/07/22 05:43: Sodium 136, Potassium 3.8, Chloride 105, Carbon Dioxide 28.0, Anion Gap 3 L, BUN 2 L, Creatinine 0.52 L, Estim Creat Clear Calc 130.56, Est GFR (MDRD) Af Amer 162, Est GFR (MDRD) Non-Af 134, BUN/Creatinine Ratio 3.9 L, Glucose 100, Calcium 7.7 L, Phosphorus 2.8, Magnesium 2.2, Total Bilirubin 0.30, AST 30, ALT 36, Alkaline Phosphatase 99, Total Protein 5.7 L, Albumin 2.8 L, Globulin 2.9, Albumin/Globulin Ratio 1.0 Micro: Microbiology 05/06/22 11:10 Stool C. difficile DNA Amplification - Final Physical Exam Narrative GENERAL: cooperative HEENT: Atraumatic; EYES; Anicteric, Normal Conjunctiva NECK; supple, normal thyroid, RESPIRATORY: Diminished to auscultation CARDIOVASCULAR:? Regular S1 S2, GI:? soft, normoactive bowel sounds, : No Renal angle tenderness; EXTREMITIES:? No edema, no clubbing, MUSCULOSKELETAL:? no muscle waisting NEURO:? Awake;? no lateralizing signs. SKIN:? No Rash PSYCH; Flat? affect Assessment & Plan Assessment/Plan (1) Abdominal pain: PLAN: Abdominal pain likely secondary to acute hepatitis, alcoholic gastritis. Remains on PPI therapy and IV fluids. I would try to transition her to oral pain medicines to see how much she can tolerate. (2) Alcoholism: PLAN: She does not want any help with her alcoholism at this time. (3) Acute alcoholic pancreatitis: PLAN: She has a history of chronic pancreatitis. So this is an enzyme which he is meal. I gave her Reglan and she does not tolerate it very well so we switched her to Phenergan for nausea from acute on chronic pancreatitis. Charges/Coding Visit Charges Inpatient E&M: 40326 Subs Hosp L2
--- NOTE | 2022-05-07 09:54 | NURSING ---
Addendum entered by Lindsey Talamantes 05/07/22 10:00: aware per primary RN pt had removed her own PIV Original Note: pt found to be at elevators fully dressed with personal items and significant other. pt states leaving. discussed not having any discharge orders at this time. pt verbalized she is aware Dr. Barnett had advised she stay but she is not waiting around for the hospitalist's discharge order. verbalized upset that nurse spoke while hospitalist in the room. discussed options of care with patient, pt verbalized she wants to leave AMA. AMA form signed. Primary RN informed as well as Dr. Gonzales and Dr. Barnett.
--- NOTE | 2022-05-07 10:04 | PCM.DC.SUM ---
Providers Date of Admission: 05/04/22 Date of Discharge: 05/07/22 Primary Care Physician: Dr. Diana Garcia MD Consultations 05/06/22 09:54 Consult: Gastroenterology Routine Consulting Provider: Tobias Ceron Reason for Consult: pancreatitis EMERGENT Consult: No Notified: Yes Date Notified: 05/06/22 Time Notified: 09:54 Method of Notification: Verbal Method of Consult:: In-Person Comments:: dr gonzales spoke with dr ceron this am per phone Reason For Visit: ETOH WITHDRAWAL, DETOX Diagnosis Discharge Diagnosis (1) Alcohol withdrawal: Status: Acute Code(s): F10.939 - Alcohol use, unspecified with withdrawal, unspecified Medications at Discharge Home Medications hydroxychloroquine 200 mg tablet 200 mg PO BID lupus 09/26/20 pantoprazole 40 mg tablet,delayed release (Protonix) 40 mg PO BID ACID REFULX 03/17/21 atorvastatin 20 mg tablet 20 mg PO QHS cholesterol lowering 05/06/21 ergocalciferol (vitamin D2) 1,250 mcg (50,000 unit) capsule 1,250 mcg PO WE SUPPLEMENT 06/05/21 methotrexate sodium 2.5 mg tablet 15 mg PO TU LUPUS 06/05/21 sertraline 100 mg tablet 150 mg PO DAILY depression 06/05/21 famotidine 40 mg tablet 40 mg PO BID gerd 07/31/21 [id number] 24,000-76,000-120,000 unit capsule,delayed rel (Creon) 2 cap PO TID STOMACH 08/17/21 folic acid 1 mg tablet 1 mg PO BREAKFAST #30 tabs 01/27/22 thiamine HCl (vitamin B1) 100 mg tablet (Vitamin B-1) 100 mg PO DAILYCM #30 tabs 01/27/22 omeprazole 40 mg capsule,delayed release 40 mg PO DAILY #30 caps 05/02/22 ondansetron 4 mg disintegrating tablet 4 mg PO Q8H PRN nausea and vomiting #10 tabs 05/02/22 sucralfate 100 mg/mL oral suspension (Carafate) 1 g (10 mL) PO TID 2 weeks #400 mL 05/02/22 Hospital Course Summary of Care Provided Minutes Spent on Discharge: 32 Hospital Course: Patient is a 51-year-old lady with history of chronic alcohol abuse admitted with acute alcohol withdrawal 1.? Abdominal pain secondary to colitis and acute pancreatitis ? 05/06/2022atient seen still complains of significant abdominal discomfort CT of the abdomen demonstrated findings consistent with acute pancreatitis as well as diffuse colitis and fatty liver infiltration. Consult placed to GI. Also did send stool for C. difficile. ? 05/07/2022 patient was seen in consultation by Dr. Ceron with gastroenterology's notes recommendations and orders reviewed. ? Plan was to have discussed patient with GI. Patient however elected to sign out AGAINST MEDICAL ADVICE attempts made for patient to resend his decision proved futile 2. Chronic alcohol dependence with early acute alcohol withdrawal ?Patient has been admitted to regular nursing floor currently undergoing stabilization using phenobarb taper 3.? Lupus ?Patient is on hydroxychloroquine as well as methotrexate did continue 4.? Recent C. difficile colitis ?Patient was treated appropriately 5.? Dyslipidemia -Patient is on statin therapy, continued at home dose 6.? GERD ?On Protonix 7.? Depression with anxiety ?Patient is on sertraline 8.? DVT prophylaxis -low risk did encourage early ambulation Physical Exam Narrative GENERAL: cooperative HEENT: Atraumatic; EYES; Anicteric, Normal Conjunctiva NECK; supple, normal thyroid, RESPIRATORY: Diminished to auscultation CARDIOVASCULAR:? Regular S1 S2, GI:? soft, normoactive bowel sounds, : No Renal angle tenderness; EXTREMITIES:? No edema, no clubbing, MUSCULOSKELETAL:? no muscle waisting NEURO:? Awake;? no lateralizing signs. SKIN:? No Rash PSYCH; Flat? affect Weight / BMI Weight Weight: 67.313 kg Body Mass Index (BMI) 22.5 ABG / Lab / Microbiology Data Result Diagrams: 05/07/22 05:43 05/07/22 05:43 Laboratory: Laboratory Results - last 24 hr 05/07/22 05:43: WBC 5.9, RBC 3.37 L, Hgb 9.2 L, Hct 29.3 L, MCV 86.9, MCH 27.3, MCHC 31.4 L, RDW Std Deviation 53.5 H, RDW Coeff of Leeann 16.9 H, Plt Count 222, MPV 10.0, Immature Gran % (Auto) 0.300, Neut % (Auto) 63.6, Lymph % (Auto) 23.6, [place] % (Auto) 7.4, Eos % (Auto) 4.4, Baso % (Auto) 0.7, Absolute Neuts (auto) 3.8, Absolute Lymphs (auto) 1.40, Nucleated RBC % 0 05/07/22 05:43: Sodium 136, Potassium 3.8, Chloride 105, Carbon Dioxide 28.0, Anion Gap 3 L, BUN 2 L, Creatinine 0.52 L, Estim Creat Clear Calc 130.56, Est GFR (MDRD) Af Amer 162, Est GFR (MDRD) Non-Af 134, BUN/Creatinine Ratio 3.9 L, Glucose 100, Calcium 7.7 L, Phosphorus 2.8, Magnesium 2.2, Total Bilirubin 0.30, AST 30, ALT 36, Alkaline Phosphatase 99, Total Protein 5.7 L, Albumin 2.8 L, Globulin 2.9, Albumin/Globulin Ratio 1.0 Microbiology: Microbiology 05/06/22 11:10 Stool C. difficile DNA Amplification - Final Meaningful Use Info Meaningful Use Diagnoses (Choose all that apply): None applicable Discharge Plan Admission Admit Date/Time: 05/04/22 16:23 Attending Provider: Maxim Gonzales Primary Care Provider: Diana Garcia Consulting Providers: [address] ; Tobias Ceron Discharge Orders/Prescriptions Prescriptions: No Action hydroxychloroquine 200 MG tablet 200 mg PO BID pantoprazole [Protonix] 40 mg Tablet,Delayed Release (Dr/Ec) 40 mg PO BID atorvastatin 20 MG tablet 20 mg PO QHS sertraline 100 mg Tablet 150 mg PO DAILY methotrexate sodium 2.5 mg Tablet 15 mg PO TU ergocalciferol (vitamin D2) 1,250 mcg (50,000 unit) Capsule 1,250 mcg PO WE famotidine 40 mg tablet 40 mg PO BID Label Comments: take 1 tablet by mouth twice a day Creon 24,000-76,000 -120,000 unit capsule,delayed release(DR/EC) 2 cap PO TID Label Comments: take 2 capsules by mouth three times a day thiamine HCl (vitamin B1) [Vitamin B-1] 100 mg Tablet 100 mg PO DAILYCM Qty: 30 0RF folic acid 1 mg Tablet 1 mg PO BREAKFAST Qty: 30 2RF omeprazole 40 mg capsule,delayed release(DR/EC) 40 mg PO DAILY Qty: 30 0RF sucralfate [Carafate] 100 mg/mL suspension 1 g PO TID 14 Days Qty: 400 0RF ondansetron 4 mg tablet,disintegrating 4 mg PO Q8H PRN (Reason: nausea and vomiting) Qty: 10 0RF Referrals / Follow Up: Diana Garcia MD [Primary Care Provider] - Disposition Disposition (needs filled in before D/C Order can be placed): Against Medical Advice Charges/Coding Visit Charges Inpatient E&M: 50677 Disch Hosp
--- NOTE | 2022-05-07 10:07 | NURSING ---
PT AWAKEN AND TOOK MEDS REFUSED SOME. INTO SEE HER AND OFFERS [facility] FOR PT SHE ADAMANTLY REFUSED SAYING NO SHE IS NOT GOING THERE. DIET WAS UPGRADED BY AND PT IS NOTIFIED. SHE IS STATING THAT DR MCARTHUR HAS SAID THAT SHE WILL BE HERE A FEW DAYS. NOT CONFIRMED WITH DR. MCARTHUR. PT REQUESTING PAIN MEDS BEFORE IT DUE SHE IS NOTIFIED OF WHEN ITS DUE.
== END 2022-05-07 09:55 | disposition left against medical advice (07) | DRG 770 ==
LOC: ED 16:20 → MS3 16:32
PROVIDERS: Admitting Provider Family Medicine; Emergency Provider Emergency Medicine; PCP Internal Medicine; Visit Provider Internal Medicine
DX: F10.239 Alcohol dependence with withdrawal, unspecified (principal); K85.20 Alcohol induced acute pancreatitis without necrosis or infection; K76.0 Fatty (change of) liver, not elsewhere classified; M32.9 Systemic lupus erythematosus, unspecified; E78.5 Hyperlipidemia, unspecified; M79.7 Fibromyalgia; I25.10 Atherosclerotic heart disease of native coronary artery without angina pectoris; F17.210 Nicotine dependence, cigarettes, uncomplicated; I10 Essential (primary) hypertension; E87.6 Hypokalemia; K21.9 Gastro-esophageal reflux disease without esophagitis; F41.8 Other specified anxiety disorders; K52.9 Noninfective gastroenteritis and colitis, unspecified; Z79.01 Long term (current) use of anticoagulants; Z86.711 Personal history of pulmonary embolism; Z86.73 Personal history of transient ischemic attack (TIA), and cerebral infarction without residual deficits; Y90.9 Presence of alcohol in blood, level not specified
CPT/HCPCS: 36415; 71045; 71275; 74177; 80048; 80053; 80076; 82077; 83690; 83735; 84100; 84484; 85025; 85379; 85610; 87493; 87811; 93005; 96374; 96375; 96376; 99283; 99284; J7120; Q9967; A4216; J2405

== ENCOUNTER 2022-05-31 11:54 | Emergency (ER) | payer MEDICAID, SELFPAY ==
[2022-05-31 11:55] VITALS: BP 140/94; PULSE 98; RESP 16; TEMP 36.4; O2SAT 98; BMI 22.8
--- NOTE | 2022-05-31 12:06 | ED.VIS.GI ---
HPI HPI - GI History of Present Illness Chief Complaint: Abd Pain Narrative Narrative: 52-year-old female with history of pancreatitis presenting with chief complaint of epigastric pain as well as nausea, vomiting, diarrhea. She states has been like this for 3 days. She states it feels like a pancreatitis flare. The last time she had this she was hospitalized for pain and nausea control. Patient states prior to this she had been drinking alcohol. She states she has not had a drink since she left the hospital. She states that in the past she would try to drink to control the pain. Patient also states even though she had not had any alcohol she will get flareups from time to time from her lupus. She states has not been able to hold down any fluids for the last couple of days. She has not had a fever. She is not having chest pain or shortness of breath. [facility] Medical History Admitted to alcohol detoxification center Alcohol abuse Alcohol abuse Alcohol dependence with acute alcoholic intoxication Alcoholism Alcoholism Anxiety Anxiety and depression Asthma CAD (coronary artery disease) Cervical neuropathy Concussion Depression Dissection, vertebral artery Fibromyalgia Headache HTN (hypertension) Hypertension Injury due to fall Kidney stones Lupus nephritis Lupus vasculitis Musculoskeletal limb pain Myocardial infarct Pancreatitis Pulmonary embolism Seizures Systemic lupus erythematosus Thrombocytopenia TIA (transient ischemic attack) Tympanic membrane rupture Home Medications hydroxychloroquine 200 mg tablet 200 mg PO BID lupus 09/26/20 [History Last Taken 08/17/21] pantoprazole 40 mg tablet,delayed release (Protonix) 40 mg PO BID ACID REFULX 03/17/21 [History Last Taken 08/17/21] atorvastatin 20 mg tablet 20 mg PO QHS cholesterol lowering 05/06/21 [History Last Taken 08/16/21] ergocalciferol (vitamin D2) 1,250 mcg (50,000 unit) capsule 1,250 mcg PO WE SUPPLEMENT 06/05/21 [History Last Taken 08/15/21] methotrexate sodium 2.5 mg tablet 15 mg PO TU LUPUS 06/05/21 [History Last Taken 01/16/22] sertraline 100 mg tablet 150 mg PO DAILY depression 06/05/21 [History Last Taken 08/16/21] famotidine 40 mg tablet 40 mg PO BID gerd 07/31/21 [History Last Taken 08/17/21] [id number] 24,000-76,000-120,000 unit capsule,delayed rel (Creon) 2 cap PO TID STOMACH 08/17/21 [History Last Taken 4 Days Ago ~08/13/21] folic acid 1 mg tablet 1 mg PO BREAKFAST #30 tabs 01/27/22 [Rx Last Taken Unknown] thiamine HCl (vitamin B1) 100 mg tablet (Vitamin B-1) 100 mg PO DAILYCM #30 tabs 01/27/22 [Rx Last Taken Unknown] omeprazole 40 mg capsule,delayed release 40 mg PO DAILY #30 caps 05/02/22 [Rx Last Taken Unknown] ondansetron 4 mg disintegrating tablet 4 mg PO Q8H PRN nausea and vomiting #10 tabs 05/02/22 [Rx Last Taken Unknown] sucralfate 100 mg/mL oral suspension (Carafate) 1 g (10 mL) PO TID 2 weeks #400 mL 05/02/22 [Rx Last Taken Unknown] ondansetron 4 mg disintegrating tablet 4 mg PO Q8H PRN nausea and vomiting #14 tabs 05/31/22 [Rx Last Taken Unknown] sucralfate 100 mg/mL oral suspension (Carafate) 10 ml PO BID PRN epgastric pain #400 mL 05/31/22 [Rx Last Taken Unknown] Allergy/AdvReac Type Severity Reaction Status Date / Time metoclopramide HCl Allergy anxious, Verified 05/31/22 11:55 [From Reglan] hives peanut Allergy Anaphylaxis Verified 05/31/22 11:55 Sulfa (Sulfonamide Allergy Hives Verified 05/31/22 11:55 Antibiotics) prednisone AdvReac psychosis Verified 05/31/22 11:55 prochlorperazine AdvReac anxious Verified 05/31/22 11:55 [From Compazine] Family History Father Diabetes CAD (coronary artery disease) Melanoma Mother Rheumatoid arthritis Melanoma Other Multiple sclerosis Surgical History H/O cervical spine surgery H/O knee surgery History of cholecystectomy History of hysterectomy S/P appendectomy Social History household members: none housing: apartment Smoking Status: Never smoker alcohol intake: current alcohol intake frequency: 3 or more drinks per day Alcohol type: hard liquor details: Patient reports only recently 2 [employer]olas[employer] hard lemonades, last at midnight. substance use type: does not use EXAM Physical Exam Const Vital Signs: 05/31/22 11:55 05/31/22 13:54 Temperature 97.6 F L Temperature Source Temporal Pulse Rate 98 74 Respiratory Rate 16 18 Blood Pressure 140/94 H Blood Pressure Mean 109 Pulse Ox 98 97 Oxygen Delivery Method Room Air Room Air Positive well nourished General Appearance ED: NAD; Negative for pallor HEENT Reports moist mucous membranes normocephalic and atraumatic Eyes PERRL and EOMs intact bilaterally General Eye ED: Negative for pale conjunctiva or scleral icterus Resp normal respiratory effort Effort and Inspection: respiratory distress Cardio regular rate and regular rhythm GI Palpation: tender epigastric and LUQ Neuro CN's II-XII intact bilaterally, moves all extremities and no sensory deficits noted Sensorium / Orientation: alert, oriented to person, oriented to place and oriented to time Motor Exam: strength 5/5 throughout Psych mental status grossly normal and thought process normal Mood & Affect: Negative for depressed, anxious or tearful Skin General Skin Exam: Negative for jaundice or pallor MDM MDM MDM Narrative Medical decision making narrative: Patient presenting with epigastric pain and is concerned for pancreatitis. She states has not been drinking. She was given morphine and Zofran initially as well as IV fluids. Blood work is obtained and her CBC and CMP are unremarkable. Lipase is normal at 72. Urinalysis is negative for infection. I do not believe she needs imaging at this time patient did require another dose of IV pain medication and was given half milligram of Dilaudid. Patient still has been well controlled. On reevaluation at 3:20 PM the patient is doing well although she is complaining of itching and wants Benadryl. She was given a dose of 25 mg IV. She states she is supposed to follow-up with Dr. Barnett on an outpatient basis. She is on a PPI currently. I will add Carafate to this for her. She was given a prescription of Zofran for home. Return precautions discussed. Impression: 1. Nausea/vomiting 2. Diarrhea 3. Epigastric pain Lab Data Attestation: I reviewed the patient's lab results. Labs: Laboratory Results - last 24 hr 05/31/22 05/31/22 05/31/22 12:14 12:14 12:14 WBC 8.3 RBC 4.41 Hgb 12.3 Hct 37.4 MCV 84.8 MCH 27.9 MCHC 32.9 RDW Std Deviation 55.7 H RDW Coeff of Leeann 18.2 H Plt Count 397 MPV 9.7 Immature Gran % (Auto) 1.000 H Neut % (Auto) 74.9 H Lymph % (Auto) 16.4 L [place] % (Auto) 7.0 Eos % (Auto) 0.1 Baso % (Auto) 0.6 Absolute Neuts (auto) 6.2 Absolute Lymphs (auto) 1.36 Nucleated RBC % 0 PT 12.9 INR 1.0 Sodium 137 Potassium 3.4 L Chloride 100 Carbon Dioxide 23.0 Anion Gap 14 BUN 4 L Creatinine 0.74 Estim Creat Clear Calc 91.75 Est GFR (MDRD) Af Amer 106 Est GFR (MDRD) Non-Af 88 BUN/Creatinine Ratio 5.4 L Glucose 115 H Calcium 8.9 Total Bilirubin 0.30 AST 22 ALT 27 Alkaline Phosphatase 103 Total Protein 7.9 Albumin 3.9 Globulin 4.0 Albumin/Globulin Ratio 1.0 Lipase 72 L Urine Color Urine Clarity Urine pH Ur Specific [place] Urine Protein Urine Glucose (UA) Urine Ketones Urine Occult Blood Urine Nitrite Urine Bilirubin Urine Urobilinogen Ur Leukocyte Esterase Urine RBC Urine WBC Ur Squamous Epith Cells Urine Bacteria Urine Mucus Ethyl Alcohol 05/31/22 05/31/22 12:14 12:18 WBC RBC Hgb Hct MCV MCH MCHC RDW Std Deviation RDW Coeff of Leeann Plt Count MPV Immature Gran % (Auto) Neut % (Auto) Lymph % (Auto) [place] % (Auto) Eos % (Auto) Baso % (Auto) Absolute Neuts (auto) Absolute Lymphs (auto) Nucleated RBC % PT INR Sodium Potassium Chloride Carbon Dioxide Anion Gap BUN Creatinine Estim Creat Clear Calc Est GFR (MDRD) Af Amer Est GFR (MDRD) Non-Af BUN/Creatinine Ratio Glucose Calcium Total Bilirubin AST ALT Alkaline Phosphatase Total Protein Albumin Globulin Albumin/Globulin Ratio Lipase Urine Color Yellow Urine Clarity Clear Urine pH 5.0 Ur Specific [place] 1.030 Urine Protein 30 H Urine Glucose (UA) Normal Urine Ketones 5 H Urine Occult Blood 50 H Urine Nitrite Negative Urine Bilirubin Negative Urine Urobilinogen Normal Ur Leukocyte Esterase Negative Urine RBC 25-50 SEEN Urine WBC 0 SEEN Ur Squamous Epith Cells 0-5 SEEN Urine Bacteria 0 SEEN Urine Mucus 0 SEEN Ethyl Alcohol < 3.0 Discharge Plan Triage Chief Complaint: Abd Pain ED Provider: Nestor Valenzuela Dx/Rx/DC Orders Instructions: ED Gastritis (Adult) Prescriptions: New sucralfate [Carafate] 100 mg/mL suspension 10 ml PO BID PRN (Reason: epgastric pain) Qty: 400 0RF ondansetron 4 mg tablet,disintegrating 4 mg PO Q8H PRN (Reason: nausea and vomiting) Qty: 14 0RF No Action hydroxychloroquine 200 MG tablet 200 mg PO BID pantoprazole [Protonix] 40 mg Tablet,Delayed Release (Dr/Ec) 40 mg PO BID atorvastatin 20 MG tablet 20 mg PO QHS sertraline 100 mg Tablet 150 mg PO DAILY methotrexate sodium 2.5 mg Tablet 15 mg PO TU ergocalciferol (vitamin D2) 1,250 mcg (50,000 unit) Capsule 1,250 mcg PO WE famotidine 40 mg tablet 40 mg PO BID Label Comments: take 1 tablet by mouth twice a day Creon 24,000-76,000 -120,000 unit capsule,delayed release(DR/EC) 2 cap PO TID Label Comments: take 2 capsules by mouth three times a day thiamine HCl (vitamin B1) [Vitamin B-1] 100 mg Tablet 100 mg PO DAILYCM Qty: 30 0RF folic acid 1 mg Tablet 1 mg PO BREAKFAST Qty: 30 2RF omeprazole 40 mg capsule,delayed release(DR/EC) 40 mg PO DAILY Qty: 30 0RF sucralfate [Carafate] 100 mg/mL suspension 1 g PO TID 14 Days Qty: 400 0RF ondansetron 4 mg tablet,disintegrating 4 mg PO Q8H PRN (Reason: nausea and vomiting) Qty: 10 0RF Primary Care Provider: Diana Garcia Referrals: Diana Garcia MD [Primary Care Provider] - Disposition Disposition: Home, Self Care
[2022-05-31] MEDS: 0.9% Normal Saline 1,000 ML 1000 ML IV (12:20)
[2022-05-31] MEDS: Morphine 4 MG/ML Syringe IV (12:20)
[2022-05-31] MEDS: Ondansetron 4 MG/2 ML Vial IV (12:20)
[2022-05-31 12:32] LABS: Bacteria 0 SEEN /hpf (None Seen); Mucous, Urine 0 SEEN /hpf (<or=2+); White Blood Cells 0 SEEN /hpf (0-5)
[2022-05-31 12:35] LABS: Color, Urine Yellow (Yellow); Glucose, Dipstick Normal (Normal); Ketone-Dipstick 5 mg/dl (Negative); Leukocyte Esterase-Dipstick Negative /ul (Negative); Nitrite-Dipstick Negative (Negative); Occult Blood-Urine 50 /ul (Negative); Protein-Dipstick 30 mg/dl (Negative); Urine Bilirubin Dipstick Negative (Negative); Urine Clarity Clear (Clear); Urine Urobilinogen Normal (Normal)
[2022-05-31 12:37] LABS: Absolute Lymphocyte Count 1.36 X10^3/uL (0.83-4.51); Absolute Neutrophil Count 6.2 X10^3/uL (2.0-7.7); Basophil# 0.05 X10^3/uL; Basophil% 0.6 % (0-1); Eosinophil# 0.01 X10^3/uL; Eosinophils% 0.1 % (0-5); Hematocrit 37.4 % (37-47); Hemoglobin 12.3 g/dL (12.0-15.0); Lymphocyte # 1.36 X10^3/ul (0.83-4.51); Lymphocyte % 16.4 % (19-41); Mean Corp Hgb Conc 32.9 g/dL (32-36); Mean Corpuscular Hgb 27.9 pg (27.0-32.0); Mean Corpuscular Volume 84.8 fL (81-99); Mean Platelet Vol. 9.7 fl (6.2-12.0); Monocyte# 0.58 X10^3/uL; NRBC Flagged by Analyzer 0 % (0-5); Neutrophil % 74.9 % (47-70); Platelet Count 397 K/mm3 (150-450); RBC Distribution Width CV 18.2 % (11.6-14.6); RBC Distribution Width SD 55.7 fl (35.1-43.9); Red Blood Count 4.41 M/mm3 (4.2-5.4); White Blood Count 8.3 K/mm3 (4.4-11.0)
[2022-05-31 12:39] LABS: AST(SGOT) 22 U/L (15-37); Alanine Aminotransfer ALT/SGPT 27 U/L (13-56); Albumin, Serum 3.9 g/dL (3.2-5.0); Alkaline Phosphatase 103 U/L (45-117); Anion Gap 14 (5-15); BUN 4 mg/dL (7-18); BUN/Creat Ratio 5.4 RATIO (10-20); Calcium,Total 8.9 mg/dL (8.5-10.1); Chloride 100 mmol/L (98-107); Creatinine, Serum 0.74 mg/dL (0.55-1.02); EST Glomerular Filtration Rate 88 mL/min (>60); Est Glom Filt Rate - Afr Amer 106 mL/min (>60); Estimated Creatinine Clearance 91.75 ml/min; Glucose 115 mg/dL (74-106); Lipase 72 U/L (73-393); Potassium 3.4 mmol/L (3.5-5.1); Protein, Total 7.9 g/dL (6.4-8.2); Sodium Level 137 mmol/L (136-145)
[2022-05-31 12:41] LABS: Alcohol, Blood (Medical)-Serum < 3.0 mg/dL
[2022-05-31 12:50] LABS: Prothrombin Time (Protime)PT. 12.9 SECONDS (11.7-14.9)
[2022-05-31 13:07] LABS: Red Blood Cells-Urine 25-50 SEEN /hpf (0-5); Squamous Epithelial Cells - UA 0-5 SEEN /hpf (5-10)
[2022-05-31] MEDS: HYDROmorphone 0.5 MG/0.5 ML SYRINGE IV (13:39)
[2022-05-31 13:54] VITALS: PULSE 74; RESP 18; O2SAT 97
[2022-05-31] MEDS: DiphenhydrAMINE 50 MG/ML Syringe 25 MG IV (15:15)
[2022-05-31 15:23] VITALS: BP 137/74; PULSE 88; RESP 18
== END 2022-05-31 15:25 | disposition home or self-care (01) ==
PROVIDERS: Emergency Provider Student in an Organized Health Care Education/Training Program; PCP Internal Medicine; Visit Provider Student in an Organized Health Care Education/Training Program
DX: R10.13 Epigastric pain (principal); M32.9 Systemic lupus erythematosus, unspecified; R19.7 Diarrhea, unspecified; R11.2 Nausea with vomiting, unspecified; I10 Essential (primary) hypertension; I25.10 Atherosclerotic heart disease of native coronary artery without angina pectoris; J45.909 Unspecified asthma, uncomplicated; F41.9 Anxiety disorder, unspecified; F32.A Depression, unspecified; Z79.899 Other long term (current) drug therapy
CPT/HCPCS: 80053; 81001; 82077; 83690; 85025; 85610; 96361; 96374; 96375; 99283; J7030; A4216; J2405

== ENCOUNTER 2022-08-21 14:16 | Emergency (ER) | payer MEDICAID, SELFPAY ==
[2022-08-21 14:17] VITALS: BP 147/95; PULSE 107; RESP 17; TEMP 37.1; O2SAT 99; BMI 24.0
--- NOTE | 2022-08-21 16:53 | ED.VIS.BACK ---
HPI History of Present Illness Chief Complaint: Back Detail of Chief Complaint: With urinary incontinence Informant: patient Onset/Context/Timing Onset: Today and Hours Context: Sudden Onset Quality: Sharp and Aching Current Severity: Moderate Maximum Severity: Moderate Worsened by: improves with Movement, Bending and Lifting Relieved by: Remaining Still Associated Symptoms Associated Symptoms: Radiation to Right Leg and Urinary Incontinence Narrative Narrative: 52-year-old female history of lupus, CAD, degenerative disc disease with a known history of an anterior cervical fusion with neurological damage from her left leg from the knee down from that surgery. Patient states she tested COVID-positive on Tuesday has had significant coughing. Coughing exacerbates her back pain. And today had worsening back pain and urinary incontinence and has had it since that time. Denies any fall or trauma. No fever. No prior lumbar surgery just a prior cervical surgery. Prior similar symptoms: No Recent Illness/Hospitalization: No [facility] Medical History Admitted to alcohol detoxification center Alcohol abuse Alcohol abuse Alcohol dependence with acute alcoholic intoxication Alcoholism Alcoholism Anxiety Anxiety and depression Asthma CAD (coronary artery disease) Cervical neuropathy Concussion DDD (degenerative disc disease) Depression Dissection, vertebral artery Fibromyalgia Headache HTN (hypertension) Hypertension Injury due to fall Kidney stones Lupus nephritis Lupus vasculitis Musculoskeletal limb pain Myocardial infarct Pancreatitis Pulmonary embolism Seizures Systemic lupus erythematosus Thrombocytopenia TIA (transient ischemic attack) Tympanic membrane rupture Home Medications hydroxychloroquine 200 mg tablet 200 mg PO BID lupus 09/26/20 [History Last Taken 08/17/21] pantoprazole 40 mg tablet,delayed release (Protonix) 40 mg PO BID ACID REFULX 03/17/21 [History Last Taken 08/17/21] atorvastatin 20 mg tablet 20 mg PO QHS cholesterol lowering 05/06/21 [History Last Taken 08/16/21] ergocalciferol (vitamin D2) 1,250 mcg (50,000 unit) capsule 1,250 mcg PO WE SUPPLEMENT 06/05/21 [History Last Taken 08/15/21] methotrexate sodium 2.5 mg tablet 15 mg PO TU LUPUS 06/05/21 [History Last Taken 01/16/22] sertraline 100 mg tablet 150 mg PO DAILY depression 06/05/21 [History Last Taken 08/16/21] famotidine 40 mg tablet 40 mg PO BID gerd 07/31/21 [History Last Taken 08/17/21] [id number] 24,000-76,000-120,000 unit capsule,delayed rel (Creon) 2 cap PO TID STOMACH 08/17/21 [History Last Taken 4 Days Ago ~08/13/21] folic acid 1 mg tablet 1 mg PO BREAKFAST #30 tabs 01/27/22 [Rx Last Taken Unknown] thiamine HCl (vitamin B1) 100 mg tablet (Vitamin B-1) 100 mg PO DAILYCM #30 tabs 01/27/22 [Rx Last Taken Unknown] omeprazole 40 mg capsule,delayed release 40 mg PO DAILY #30 caps 05/02/22 [Rx Last Taken Unknown] ondansetron 4 mg disintegrating tablet 4 mg PO Q8H PRN nausea and vomiting #10 tabs 05/02/22 [Rx Last Taken Unknown] sucralfate 100 mg/mL oral suspension (Carafate) 1 g (10 mL) PO TID 2 weeks #400 mL 05/02/22 [Rx Last Taken Unknown] ondansetron 4 mg disintegrating tablet 4 mg PO Q8H PRN nausea and vomiting #14 tabs 05/31/22 [Rx Last Taken Unknown] sucralfate 100 mg/mL oral suspension (Carafate) 10 ml PO BID PRN epgastric pain #400 mL 05/31/22 [Rx Last Taken Unknown] Allergy/AdvReac Type Severity Reaction Status Date / Time metoclopramide HCl Allergy anxious, Verified 08/21/22 14:16 [From Reglan] hives peanut Allergy Anaphylaxis Verified 08/21/22 14:16 Sulfa (Sulfonamide Allergy Hives Verified 08/21/22 14:16 Antibiotics) prednisone AdvReac psychosis Verified 08/21/22 14:16 prochlorperazine AdvReac anxious Verified 08/21/22 14:16 [From Compazine] Family History Father Diabetes CAD (coronary artery disease) Melanoma Mother Rheumatoid arthritis Melanoma Other Multiple sclerosis Surgical History H/O cervical spine surgery H/O knee surgery History of cholecystectomy History of hysterectomy S/P appendectomy Social History household members: none housing: apartment Smoking Status: Never smoker alcohol intake: current alcohol intake frequency: 3 or more drinks per day Alcohol type: hard liquor details: Patient reports only recently 2 [employer] hard lemonades, last at midnight. substance use type: does not use ROS ROS ED ROS Narrative Cough. Back pain. Urinary incontinence. Review of Systems ROS Unobtainable: Denies due to encephalopathy Constitutional Constitutional ED: Denies chills or fever(s) Eyes Eyes: Denies blurry vision ENT ENT ED: Denies ear pain Cardiovascular Cardiovascular: Denies chest pain Respiratory/Chest Respiratory/Chest: Denies dyspnea or dyspnea on exertion Gastrointestinal Gastrointestinal: Denies abdominal pain Genitourinary Genitourinary ED: Denies dysuria or hematuria Musculoskeletal Musculoskeletal: Reports back pain; Denies arthralgias, myalgias or neck pain Integumentary Denies abscess or Abrasions Neurologic Neurologic: Denies headache(s) Psychiatric Psychiatric: Denies anxiety Endocrine Endocrinology: Denies cold intolerance Hematologic/Lymphatic Hematologic/Lymphatic: Denies easy bleeding or easy bruising Allergic/Immunologic Allergic/Immunologic ED: Denies mouth swelling or tongue swelling EXAM Physical Exam Narrative Exam Narrative: 52-year-old vital signs stable afebrile. H EENT exam unremarkable. Neck nontender. Lungs clear to auscultation bilaterally. Heart regular rhythm rate about 105 no murmur. Chest wall nontender. Abdomen soft nontender. Back has low lumbar and sacrum tenderness. And right SI tenderness. 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 Normal sensation. Lower extremities the left leg from the knee down the foot she has chronic weakness and decreased sensation from prior neurologic damage from prior neck surgery. She has trouble with dorsi plantarflexion of her right foot due to pain in her back. She has normal medial thigh sensation. She is unable to lift her right leg due to pain when I lifted passively she has positive straight leg raise at about 15 to 30 degrees. The right leg does appear to be weak. Neurologically she is awake and alert. Chronic weakness and decreased sensation left leg from the knee down. She has weakness of her dorsi and plantar flexion of her right foot today. No saddle anesthesia. Const Vital Signs: 08/21/22 14:17 Temperature 98.7 F Temperature Source Temporal Pulse Rate 107 H Respiratory Rate 17 Blood Pressure 147/95 H Blood Pressure Mean 112 Pulse Ox 99 Oxygen Delivery Method Room Air Positive well nourished and well developed; Negative for obese, cachectic, contractures or unkempt General Appearance ED: well developed and NAD; Negative for unkempt, cachectic, contractures or pallor Nutritional Appearance: Negative for cachectic or obese HEENT Reports moist mucous membranes; Denies dry mucous membranes Negative for trauma or tenderness Mouth ED: No dry mucous membranes Mouth: No dry mucous membranes Eyes PERRL and EOMs intact bilaterally General Eye ED: Negative for pale conjunctiva, scleral icterus or other Neck no lymphadenopathy, supple and no JVD General: Negative for tenderness Thyroid: Negative for other Resp normal respiratory effort and clear to auscultation bilaterally Effort and Inspection: Negative for pain with movement Auscultation: Negative for rales, rhonchi or wheezes Percussion: Negative for other Cardio regular rhythm, S1 normal heart sound, S2 normal heart sound and no murmurs; Negative for regular rate Rate: tachycardic GI normal to inspection, nondistended, normoactive bowel sounds, non-tender, non-distended and no masses Inspection: Negative for abdominal distention Auscultation: Negative for hyperactive bowel sounds Palpation: Negative for tender or guarding Back/Spine Negative for normal to inspection or no thoracic nor lumbar tenderness Back/Spine Narrative: Tenderness lower LS and proximal sacral spine. Right SI tenderness. General Back: Negative for CVA tenderness Cervical Spine: Negative for cervical spine tenderness Thoracic Spine / Upper Back: Negative for paraspinal muscle tenderness Lumbar Spine / Lower Back: ROM limited and straight leg raise positive right Extremity Negative for normal to inspection or no clubbing, cyanosis or edema Extremity Narrative: Right SI tenderness. Weakness left leg from the knee down. Weakness in dorsi plantarflexion in the right leg. General Extremety ED: Negative for edema or tenderness General Extremity: Negative for edema Neuro oriented x3 and No no sensory deficits noted Neuro Narrative: Left lower leg weakness chronic. Right lower leg decreased dorsi plantarflexion. Positive straight leg raise. Tenderness over the lower lumbar spine and SI joint. Sensorium / Orientation: Negative for confused, lethargic or stuporous Psych mental status grossly normal Appearance: Negative for unkempt Attitude: No agitated Mood & Affect: Negative for depressed, sad or tearful Skin no rashes or lesions noted and no wounds General Skin Exam: Negative for jaundice or pallor Lesions: No lesion noted Rashes: No rashes noted Trauma: Negative for abrasion Wounds: Negative for wounds noted MDM MDM MDM Narrative Medical decision making narrative: 52-year-old with prior cervical fusion. Has COVID. Has been coughing has been developing worsening lower back pain. Now has weakness in the right lower ankle and foot. Urinary incontinence is also developed. She needs an MRI to evaluate for cauda equina. She has chronic weakness in her left lower leg below the knee from prior neck surgery. MRIs not available here today. I spoke to [facility]. They will accept her. We are arranging transport. An IV is going to be started she will receive morphine for pain and Zofran. There is no squad available for at least 2 hours. We will see if the patient can be transferred to [facility] by private vehicle. Discharge Plan Triage Chief Complaint: Back ED Provider: Guillermo Dubose Dx/Rx/DC Orders Clinical Impression: Low back pain, History of degenerative disc disease, Right leg weakness, Urinary incontinence, COVID-19 Prescriptions: No Action hydroxychloroquine 200 MG tablet 200 mg PO BID pantoprazole [Protonix] 40 mg Tablet,Delayed Release (Dr/Ec) 40 mg PO BID atorvastatin 20 MG tablet 20 mg PO QHS sertraline 100 mg Tablet 150 mg PO DAILY methotrexate sodium 2.5 mg Tablet 15 mg PO TU ergocalciferol (vitamin D2) 1,250 mcg (50,000 unit) Capsule 1,250 mcg PO WE famotidine 40 mg tablet 40 mg PO BID Label Comments: take 1 tablet by mouth twice a day Creon 24,000-76,000 -120,000 unit capsule,delayed release(DR/EC) 2 cap PO TID Label Comments: take 2 capsules by mouth three times a day thiamine HCl (vitamin B1) [Vitamin B-1] 100 mg Tablet 100 mg PO DAILYCM Qty: 30 0RF folic acid 1 mg Tablet 1 mg PO BREAKFAST Qty: 30 2RF omeprazole 40 mg capsule,delayed release(DR/EC) 40 mg PO DAILY Qty: 30 0RF sucralfate [Carafate] 100 mg/mL suspension 1 g PO TID 14 Days Qty: 400 0RF ondansetron 4 mg tablet,disintegrating 4 mg PO Q8H PRN (Reason: nausea and vomiting) Qty: 10 0RF sucralfate [Carafate] 100 mg/mL suspension 10 ml PO BID PRN (Reason: epgastric pain) Qty: 400 0RF ondansetron 4 mg tablet,disintegrating 4 mg PO Q8H PRN (Reason: nausea and vomiting) Qty: 14 0RF Primary Care Provider: Diana Garcia Referrals: Diana Garcia MD [Primary Care Provider] - Disposition Disposition: Acute Care Hospital
[2022-08-21] MEDS: Ondansetron 4 MG/2 ML Vial IV (17:07)
[2022-08-21] MEDS: morphine 8 MG/ML Syringe IV ×2 (17:07→18:18)
[2022-08-21 18:31] VITALS: BP 118/82; PULSE 95; RESP 16; O2SAT 98
[2022-08-21] MEDS: DiphenhydrAMINE 50 MG/ML Syringe 25 MG IV (19:32)
--- NOTE | 2022-08-21 19:40 | ED.RN ---
[facility] ETA IS [phone]
[2022-08-21 20:11] VITALS: BP 117/91; PULSE 94; O2SAT 98
== END 2022-08-21 20:20 | disposition short-term general hospital (02) ==
PROVIDERS: Emergency Provider Emergency Medicine; PCP Internal Medicine; Visit Provider Emergency Medicine
DX: R32 Unspecified urinary incontinence (principal); U07.1 COVID-19; M54.50 Low back pain, unspecified; R53.1 Weakness; I25.10 Atherosclerotic heart disease of native coronary artery without angina pectoris; I10 Essential (primary) hypertension
CPT/HCPCS: 96374; 96375; 96376; 99284; A4216; J2405

== ENCOUNTER 2022-09-11 19:49 | Emergency (ER) | payer MEDICAID, SELFPAY ==
[2022-09-11 19:51] VITALS: BP 123/90; PULSE 105; RESP 18; TEMP 36.7; O2SAT 96; BMI 25.1
--- NOTE | 2022-09-11 20:40 | EKG12_ITS ---
Test Reason : DYSRHYTHMIA Blood Pressure : / mmHG Vent. Rate : 097 BPM Atrial Rate : 097 BPM P-R Int : 128 ms QRS Dur : 082 ms QT Int : 352 ms P-R-T Axes : 052 040 040 degrees QTc Int : 447 ms Normal sinus rhythm with sinus arrhythmia Normal ECG Confirmed by MENDEZ HICKMAN, BERNARD ([id number]), clinical editor AHN BEARD ([id number]) on 09/13/2022 12:50:04 PM Referred By: Confirmed By:BERNARD SIMMS MD
--- NOTE | 2022-09-11 20:41 | CT_ITS ---
STUDY: CT ABDOMEN AND PELVIS WITH CONTRAST REASON FOR EXAM: Female, 52 years old. LLQ pain, hx pancreatitis RADIATION DOSAGE (If Supplied By Facility): CTDIvol = ( 15.18 ) mGy, DLP = ( 906.48 ) mGycm TECHNIQUE: Transaxial images were obtained from the dome of the diaphragm to the symphysis pubis without oral contrast. IV 100mL Isovue-370 was administered. Sagittal and coronal images were reconstructed. Individualized dose optimization techniques were used for this CT. COMPARISON: May 05, 2022 CT scan abdomen and pelvis FINDINGS: The visualized lung bases are unremarkable. The visualized portions of the heart are within normal limits. There is decreased attenuation of the liver consistent with steatosis. There is a mildly distended appearance of the common duct at the level of the pancreas with tortuosity. There is also a tortuous appearance of the duodenum with mild wall thickening. There is non-visualization of the gallbladder, which may be secondary to either contraction or a prior cholecystectomy. Normal spleen. Normal pancreas. Normal bilateral adrenal glands. There is mild right-sided extrarenal pelvis or pelviectasis. There is minimal distention of the right ureter. There is left renal pelviectasis with mild distention of the left ureter. The bladder is distended measuring 12.5 x 7 x 9.0 cm. There are no visualized stones along the course the ureters. Normal visualized stomach. Normal small intestine. There is moderate stool within the ascending colon and transverse colon. There is a decompressed appearance of the descending colon. There are numerous diverticula without visualized diverticulitis. There is non-visualization of the appendix. Normal abdominal aorta. Normal inferior vena cava. Normal retroperitoneum. Bladder is distended measuring 12.5 x 7 x 9 cm. There is absence of the uterus consistent with a prior hysterectomy. There is a remaining small but cystic appearing left ovary. The right ovary is not visualized. Normal abdominal wall. There are diffuse degenerative changes of the visualized lumbar spine. CT/Abdomen/Pelvis W IV Cont ONLY IMPRESSION: Status post cholecystectomy. Mild hepatic steatosis. Torturous mildly distended appearance of the common duct which may be the result of postcholecystectomy . There is a tortuous mildly thickened appearance of the duodenum which may represent duodenitis. There is no visualized CT evidence of pancreatitis. There is a nonspecific decompressed appearance of the descending colon with diverticula without definitive evidence of inflammatory change or diverticulitis. Cannot entirely exclude mild colitis. Nonvisualization of the appendix. Mild bilateral pelviectasis with distention of the bladder. Electronically Signed: Kira Holley MD at 22:29 EST ,
[2022-09-11 21:11] LABS: Bacteria 0 SEEN /hpf (None Seen); Mucous, Urine 0 SEEN /hpf (<or=2+); Red Blood Cells-Urine 0 SEEN /hpf (0-5)
[2022-09-11 21:12] LABS: Absolute Lymphocyte Count 2.53 X10^3/uL (0.83-4.51); Absolute Neutrophil Count 4.8 X10^3/uL (2.0-7.7); Basophil# 0.08 X10^3/uL; Basophil% 0.9 % (0-1); Eosinophils% 5.8 % (0-5); Hematocrit 35.3 % (37-47); Hemoglobin 11.6 g/dL (12.0-15.0); Lymphocyte # 2.53 X10^3/ul (0.83-4.51); Lymphocyte % 29.1 % (19-41); Mean Corp Hgb Conc 32.9 g/dL (32-36); Mean Corpuscular Hgb 27.4 pg (27.0-32.0); Mean Corpuscular Volume 83.3 fL (81-99); Mean Platelet Vol. 10.3 fl (6.2-12.0); Monocyte# 0.76 X10^3/uL; Monocyte% 8.7 % (0-10); NRBC Flagged by Analyzer 0 % (0-5); Neutrophil # 4.81 X10^3/uL (2.7-7.7); Neutrophil % 55.4 % (47-70); Platelet Count 407 K/mm3 (150-450); RBC Distribution Width CV 16.2 % (11.6-14.6); RBC Distribution Width SD 48.5 fl (35.1-43.9); Red Blood Count 4.24 M/mm3 (4.2-5.4); White Blood Count 8.7 K/mm3 (4.4-11.0)
[2022-09-11 21:13] LABS: Color, Urine Yellow (Yellow); Glucose, Dipstick Normal (Normal); Ketone-Dipstick Negative (Negative); Leukocyte Esterase-Dipstick 25 /ul (Negative); Nitrite-Dipstick Negative (Negative); Occult Blood-Urine 10 /ul (Negative); Protein-Dipstick Negative (Negative); Urine Bilirubin Dipstick Negative (Negative); Urine Clarity Clear (Clear); Urine Urobilinogen Normal (Normal); Urine pH 6.5 (5.0 - 8.0)
[2022-09-11] MEDS: Ondansetron 4 MG/2 ML Vial IV (21:15)
[2022-09-11] MEDS: 0.9% Normal Saline 1,000 ML 1000 ML IV (21:15)
[2022-09-11] MEDS: Morphine 4 MG/ML Syringe IV (21:16)
--- NOTE | 2022-09-11 21:22 | RAD_ITS ---
STUDY: X-RAY CHEST REASON FOR EXAM: Female, 52 years old. Sob TECHNIQUE: Single AP portable view of the chest. COMPARISON: May 02, 2022 chest x-ray FINDINGS: The lungs are clear and expanded. There is no demonstrated pleural abnormality. Normal size heart. Normal mediastinum and umbetro. Normal visualized pulmonary arteries. Normal visualized aortic arch and descending thoracic aorta. Normal visualized thoracic spine. Normal visualized ribs, clavicles, and shoulders. There is no demonstrated abnormality of the visualized soft tissue structures of the upper abdomen. RAD/Chest 1 View (Portable) IMPRESSION: Normal x-ray examination of the chest. Electronically Signed: Kira Holley MD at 21:56 EST Reading Location ID and State: [facility] / [place] Tel , Service support ,
[2022-09-11 21:25] LABS: Squamous Epithelial Cells - UA 10-25 SEEN /hpf (5-10); White Blood Cells 0-5 SEEN /hpf (0-5)
[2022-09-11 21:31] LABS: ALB/GLOB Ratio 0.9 RATIO (0.9-2.4); AST(SGOT) 35 U/L (15-37); Alanine Aminotransfer ALT/SGPT 37 U/L (13-56); Albumin, Serum 3.6 g/dL (3.2-5.0); Alkaline Phosphatase 94 U/L (45-117); Anion Gap 7 (5-15); BUN 6 mg/dL (7-18); Calcium,Total 8.9 mg/dL (8.5-10.1); Chloride 107 mmol/L (98-107); Creatinine, Serum 0.86 mg/dL (0.55-1.02); EST Glomerular Filtration Rate 74 mL/min (>60); Est Glom Filt Rate - Afr Amer 89 mL/min (>60); Estimated Creatinine Clearance 78.95 ml/min; Glucose 109 mg/dL (74-106); Lipase 49 U/L (73-393); Potassium 3.4 mmol/L (3.5-5.1); Protein, Total 7.6 g/dL (6.4-8.2); Sodium Level 140 mmol/L (136-145); Troponin-I HS (w/2H Reflex) 4 pg/mL (3.0-54.0)
[2022-09-11 21:50] VITALS: RESP 18
[2022-09-11 23:10] LABS: Reflex Troponin-HS? (from REC) Y
--- NOTE | 2022-09-11 23:17 | EX.ED.DYSGE1 ---
HPI History of Present Illness Chief Complaint: Abd Pain Informant: patient Narrative Narrative: 52-year-old female presenting with left-sided abdominal pain. Patient states this started earlier today. She did drink alcohol to help her deal with the pain. She has history of pancreatitis and states that this feels exactly similar to her previous pancreatitis. She has a history of lupus. She has a history of alcohol abuse but was sober for 6 months prior to today. She has had nausea and vomiting. She called the nurse line for her doctor and they called an ambulance because she stated the pain radiated to her chest. Denies shortness of breath. Denies fever. Denies other complaints. Prior similar symptoms: Yes Recent Illness/Hospitalization: No [facility] Medical History Admitted to alcohol detoxification center Alcohol abuse Alcohol abuse Alcohol dependence with acute alcoholic intoxication Alcoholism Alcoholism Anxiety Anxiety and depression Asthma CAD (coronary artery disease) Cervical neuropathy Concussion DDD (degenerative disc disease) Depression Dissection, vertebral artery Fibromyalgia Headache HTN (hypertension) Hypertension Injury due to fall Kidney stones Lupus nephritis Lupus vasculitis Musculoskeletal limb pain Myocardial infarct Pancreatitis Pulmonary embolism Seizures Systemic lupus erythematosus Thrombocytopenia TIA (transient ischemic attack) Tympanic membrane rupture Home Medications hydroxychloroquine 200 mg tablet 200 mg PO BID lupus 09/26/20 [History Last Taken 08/17/21] pantoprazole 40 mg tablet,delayed release (Protonix) 40 mg PO BID ACID REFULX 03/17/21 [History Last Taken 08/17/21] atorvastatin 20 mg tablet 20 mg PO QHS cholesterol lowering 05/06/21 [History Last Taken 08/16/21] ergocalciferol (vitamin D2) 1,250 mcg (50,000 unit) capsule 1,250 mcg PO WE SUPPLEMENT 06/05/21 [History Last Taken 08/15/21] methotrexate sodium 2.5 mg tablet 15 mg PO TU LUPUS 06/05/21 [History Last Taken 01/16/22] sertraline 100 mg tablet 150 mg PO DAILY depression 06/05/21 [History Last Taken 08/16/21] famotidine 40 mg tablet 40 mg PO BID gerd 07/31/21 [History Last Taken 08/17/21] [id number] 24,000-76,000-120,000 unit capsule,delayed rel (Creon) 2 cap PO TID STOMACH 08/17/21 [History Last Taken 4 Days Ago ~08/13/21] folic acid 1 mg tablet 1 mg PO BREAKFAST #30 tabs 01/27/22 [Rx Last Taken Unknown] thiamine HCl (vitamin B1) 100 mg tablet (Vitamin B-1) 100 mg PO DAILYCM #30 tabs 01/27/22 [Rx Last Taken Unknown] omeprazole 40 mg capsule,delayed release 40 mg PO DAILY #30 caps 05/02/22 [Rx Last Taken Unknown] ondansetron 4 mg disintegrating tablet 4 mg PO Q8H PRN nausea and vomiting #10 tabs 05/02/22 [Rx Last Taken Unknown] sucralfate 100 mg/mL oral suspension (Carafate) 1 g (10 mL) PO TID 2 weeks #400 mL 05/02/22 [Rx Last Taken Unknown] ondansetron 4 mg disintegrating tablet 4 mg PO Q8H PRN nausea and vomiting #14 tabs 05/31/22 [Rx Last Taken Unknown] sucralfate 100 mg/mL oral suspension (Carafate) 10 ml PO BID PRN epgastric pain #400 mL 05/31/22 [Rx Last Taken Unknown] ondansetron 4 mg disintegrating tablet 4 mg PO Q8H PRN PRN Nausea 3 days #10 tabs 09/12/22 [Rx Last Taken Unknown] Allergy/AdvReac Type Severity Reaction Status Date / Time metoclopramide HCl Allergy anxious, Verified 08/21/22 14:16 [From Reglan] hives peanut Allergy Anaphylaxis Verified 08/21/22 14:16 Sulfa (Sulfonamide Allergy Hives Verified 08/21/22 14:16 Antibiotics) prednisone AdvReac psychosis Verified 08/21/22 14:16 prochlorperazine AdvReac anxious Verified 08/21/22 14:16 [From Compazine] Family History Father Diabetes CAD (coronary artery disease) Melanoma Mother Rheumatoid arthritis Melanoma Other Multiple sclerosis Surgical History H/O cervical spine surgery H/O knee surgery History of cholecystectomy History of hysterectomy S/P appendectomy Social History household members: none housing: apartment Smoking Status: Never smoker alcohol intake: current alcohol intake frequency: 3 or more drinks per day Alcohol type: hard liquor details: Patient reports only recently 2 nicholas[employer] hard lemonades, last at midnight. substance use type: does not use ROS ROS ED Constitutional Constitutional ED: Denies fever(s) Eyes Eyes: Denies change in vision ENT ENT ED: Denies rhinorrhea or sore throat Cardiovascular Cardiovascular: Denies chest pain or palpitations Respiratory/Chest Respiratory/Chest: Denies cough or dyspnea Gastrointestinal Gastrointestinal: Reports abdominal pain, diarrhea, nausea and vomiting Genitourinary Genitourinary ED: Denies dysuria Musculoskeletal Musculoskeletal: Denies myalgias Integumentary Denies rash Neurologic Neurologic: Denies headache(s) Psychiatric Psychiatric: Denies suicidal thoughts EXAM Physical Exam Const Vital Signs: 09/11/22 19:51 09/11/22 21:50 Temperature 98.0 F Temperature Source Oral Pulse Rate 105 H Respiratory Rate 18 18 Blood Pressure 123/90 H Blood Pressure Mean 101 Pulse Ox 96 Oxygen Delivery Method Room Air Positive well nourished and well developed General Appearance ED: well developed HEENT Reports normocephalic and head/scalp atraumatic Eyes PERRL and EOMs intact bilaterally Neck supple General: Negative for tenderness Chest Wall inspection of chest normal Resp normal respiratory effort and clear to auscultation bilaterally Cardio regular rate and regular rhythm GI non-distended GI Narrative: Left lower and left mid quadrant tenderness with no guarding or rebound. Palpation: soft; Negative for guarding or rebound tenderness present no CVA tenderness Back/Spine no CVA tenderness Extremity normal to inspection Neuro oriented x3 Sensorium / Orientation: alert Psych mental status grossly normal Skin no rashes or lesions noted MDM MDM MDM Narrative Medical decision making narrative: Patient was given IV fluids, morphine, Zofran. CBC is unremarkable. Chemistries are unremarkable. Lipase is 49. Alcohol level 182. Urinalysis shows 0-5 white cells, 10-[address] abdomen pelvis cannot entirely exclude mild colitis.Chest x-ray read by myself and radiology shows no acute process. Troponin and delta troponin are negative. Patient is resting comfortably on reevaluation. 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 Advised to return to the ED for worsening complaints. Lab Data Attestation: I reviewed the patient's lab results. Labs: Laboratory Results - last 24 hr 09/11/22 09/11/22 09/11/22 21:03 21:03 21:03 WBC 8.7 RBC 4.24 Hgb 11.6 L Hct 35.3 L MCV 83.3 MCH 27.4 MCHC 32.9 RDW Std Deviation 48.5 H RDW Coeff of Leeann 16.2 H Plt Count 407 MPV 10.3 Immature Gran % (Auto) 0.100 Neut % (Auto) 55.4 Lymph % (Auto) 29.1 [place] % (Auto) 8.7 Eos % (Auto) 5.8 H Baso % (Auto) 0.9 Absolute Neuts (auto) 4.8 Absolute Lymphs (auto) 2.53 Nucleated RBC % 0 Sodium 140 Potassium 3.4 L Chloride 107 Carbon Dioxide 26.0 Anion Gap 7 BUN 6 L Creatinine 0.86 Estim Creat Clear Calc 78.95 Est GFR (MDRD) Af Amer 89 Est GFR (MDRD) Non-Af 74 BUN/Creatinine Ratio 7.0 L Glucose 109 H Calcium 8.9 Total Bilirubin 0.20 AST 35 ALT 37 Alkaline Phosphatase 94 Troponin I High Sens 4 Total Protein 7.6 Albumin 3.6 Globulin 4.0 Albumin/Globulin Ratio 0.9 Lipase 49 L Urine Color Urine Clarity Urine pH Ur Specific [place] Urine Protein Urine Glucose (UA) Urine Ketones Urine Occult Blood Urine Nitrite Urine Bilirubin Urine Urobilinogen Ur Leukocyte Esterase Urine RBC Urine WBC Ur Squamous Epith Cells Urine Bacteria Urine Mucus Ethyl Alcohol 182.0 09/11/22 09/11/22 21:03 23:57 WBC RBC Hgb Hct MCV MCH MCHC RDW Std Deviation RDW Coeff of Leeann Plt Count MPV Immature Gran % (Auto) Neut % (Auto) Lymph % (Auto) [place] % (Auto) Eos % (Auto) Baso % (Auto) Absolute Neuts (auto) Absolute Lymphs (auto) Nucleated RBC % Sodium Potassium Chloride Carbon Dioxide Anion Gap BUN Creatinine Estim Creat Clear Calc Est GFR (MDRD) Af Amer Est GFR (MDRD) Non-Af BUN/Creatinine Ratio Glucose Calcium Total Bilirubin AST ALT Alkaline Phosphatase Troponin I High Sens < 3 L Total Protein Albumin Globulin Albumin/Globulin Ratio Lipase Urine Color Yellow Urine Clarity Clear Urine pH 6.5 Ur Specific [place] 1.010 Urine Protein Negative Urine Glucose (UA) Normal Urine Ketones Negative Urine Occult Blood 10 H Urine Nitrite Negative Urine Bilirubin Negative Urine Urobilinogen Normal Ur Leukocyte Esterase 25 H Urine RBC 0 SEEN Urine WBC 0-5 SEEN Ur Squamous Epith Cells 10-25 SEEN Urine Bacteria 0 SEEN Urine Mucus 0 SEEN Ethyl Alcohol Radiography Chest X-Ray - ED: 1 View, Read by ED Physician and Read by Radiologist Diagnostic Testing: Clinical Impression(s) from Imaging Studies Abdomen/Pelvis CT 09/11/22 20:41 IMPRESSION: Status post cholecystectomy. Mild hepatic steatosis. Torturous mildly distended appearance of the common duct which may be the result of postcholecystectomy . There is a tortuous mildly thickened appearance of the duodenum which may represent duodenitis. There is no visualized CT evidence of pancreatitis. There is a nonspecific decompressed appearance of the descending colon with diverticula without definitive evidence of inflammatory change or diverticulitis. Cannot entirely exclude mild colitis. Nonvisualization of the appendix. Mild bilateral pelviectasis with distention of the bladder. Electronically Signed: Kira Holley MD at 22:29 EST , Chest X-Ray 09/11/22 21:22 IMPRESSION: Normal x-ray examination of the chest. Electronically Signed: Kira Holley MD at 21:56 EST , EKG Initial EKG: Attestation: I personally reviewed and interpreted this EKG as follows: Interpretation: Sinus Rhythm and No Acute Injury Pattern Discharge Plan Triage Chief Complaint: Abd Pain ED Provider: Christine Dowell Dx/Rx/DC Orders Clinical Impression: Abdominal pain Instructions: ED Abdominal Pain Unkn Cause Fem Prescriptions: New ondansetron 4 mg tablet,disintegrating 4 mg PO Q8H PRN PRN (Reason: Nausea) 3 Days Qty: 10 0RF No Action hydroxychloroquine 200 MG tablet 200 mg PO BID pantoprazole [Protonix] 40 mg Tablet,Delayed Release (Dr/Ec) 40 mg PO BID atorvastatin 20 MG tablet 20 mg PO QHS sertraline 100 mg Tablet 150 mg PO DAILY methotrexate sodium 2.5 mg Tablet 15 mg PO TU ergocalciferol (vitamin D2) 1,250 mcg (50,000 unit) Capsule 1,250 mcg PO WE famotidine 40 mg tablet 40 mg PO BID Label Comments: take 1 tablet by mouth twice a day Creon 24,000-76,000 -120,000 unit capsule,delayed release(DR/EC) 2 cap PO TID Label Comments: take 2 capsules by mouth three times a day thiamine HCl (vitamin B1) [Vitamin B-1] 100 mg Tablet 100 mg PO DAILYCM Qty: 30 0RF folic acid 1 mg Tablet 1 mg PO BREAKFAST Qty: 30 2RF omeprazole 40 mg capsule,delayed release(DR/EC) 40 mg PO DAILY Qty: 30 0RF sucralfate [Carafate] 100 mg/mL suspension 1 g PO TID 14 Days Qty: 400 0RF ondansetron 4 mg tablet,disintegrating 4 mg PO Q8H PRN (Reason: nausea and vomiting) Qty: 10 0RF sucralfate [Carafate] 100 mg/mL suspension 10 ml PO BID PRN (Reason: epgastric pain) Qty: 400 0RF ondansetron 4 mg tablet,disintegrating 4 mg PO Q8H PRN (Reason: nausea and vomiting) Qty: 14 0RF Primary Care Provider: Diana Garcia Referrals: Diana Garcia MD [Primary Care Provider] - Tobias Branett DO [Med Staff - Active Staff] - Disposition Disposition: Home, Self Care
[2022-09-12 00:25] LABS: Troponin-I HS < 3 pg/mL (3.0-54.0)
[2022-09-12] MEDS: Morphine 4 MG/ML Syringe IV (00:42)
[2022-09-12] MEDS: Ondansetron 4 MG/2 ML Vial IV (00:43)
[2022-09-12 01:54] VITALS: BP 164/89; PULSE 80; RESP 16; O2SAT 97
== END 2022-09-12 01:55 | disposition home or self-care (01) ==
PROVIDERS: Emergency Provider Emergency Medicine; PCP Internal Medicine; Visit Provider Emergency Medicine
DX: R10.9 Unspecified abdominal pain (principal); M32.14 Glomerular disease in systemic lupus erythematosus; F10.20 Alcohol dependence, uncomplicated; R56.9 Unspecified convulsions; Y90.6 Blood alcohol level of 120-199 mg/100 ml; I25.10 Atherosclerotic heart disease of native coronary artery without angina pectoris; I10 Essential (primary) hypertension; J45.909 Unspecified asthma, uncomplicated; I25.2 Old myocardial infarction; Z79.899 Other long term (current) drug therapy; Z86.73 Personal history of transient ischemic attack (TIA), and cerebral infarction without residual deficits
CPT/HCPCS: 71045; 74177; 80053; 81001; 82077; 83690; 84484; 85025; 93005; 96361; 96374; 96375; 96376; 99285; J7030; A4216; J2405

== ENCOUNTER 2023-09-18 17:13 | Emergency (ER) | payer BC, SELFPAY ==
[2023-09-18 17:15] VITALS: BP 109/95; PULSE 116; RESP 16; TEMP 36; O2SAT 98; BMI 20.7
[2023-09-18] MEDS: HYDROcodone Bitartrate/Apap 5/325 Tablet PO (17:48)
--- NOTE | 2023-09-18 17:53 | EDS_ITS ---
HPI History of Present Illness HPI Narrative: Patient presents with injury to her left ankle and lower leg that began today. Patient states she fell down a flight of stairs while she was carrying some dog bowls. Patient denies any head injury or loss of consciousness. Patient states her pain is localized to her left lower leg and ankle. Patient states she has broken that ankle 3 times in the past. Patient describes her pain as sharp. Patient states it is worse with weightbearing. Patient denies any paresthesias or weakness. Patient denies any other injuries. Chief Complaint: Lower Extremity Injury Informant: patient Occured/Mechanism Mechanism/Context: Yes fall Onset/Context/Timing Onset: Today Context: Sudden Onset Timing: Continuous Quality of Pain: Sharp Location: Left lower leg and ankle Worsened by: Weightbearing Relieved by: Nothing Associated Symptoms Associated Symptoms: Negative for Parasthesia, Weakness or Loss of Funtion [facility] Medical History Admitted to alcohol detoxification center Alcohol abuse Alcohol abuse Alcohol dependence with acute alcoholic intoxication Alcoholism Alcoholism Anxiety Anxiety and depression Asthma CAD (coronary artery disease) Cervical neuropathy Concussion DDD (degenerative disc disease) Depression Dissection, vertebral artery Fibromyalgia Headache HTN (hypertension) Hypertension Injury due to fall Kidney stones Lupus nephritis Lupus vasculitis Musculoskeletal limb pain Myocardial infarct Pancreatitis Pulmonary embolism Seizures Systemic lupus erythematosus Thrombocytopenia TIA (transient ischemic attack) Tympanic membrane rupture Home Medications hydroxychloroquine 200 mg tablet 200 mg PO BID lupus 09/26/20 [History Last Taken 08/17/21] pantoprazole 40 mg tablet,delayed release (Protonix) 40 mg PO BID ACID REFULX 03/17/21 [History Last Taken 08/17/21] atorvastatin 20 mg tablet 20 mg PO QHS cholesterol lowering 05/06/21 [History Last Taken 08/16/21] ergocalciferol (vitamin D2) 1,250 mcg (50,000 unit) capsule 1,250 mcg PO WE SUPPLEMENT 06/05/21 [History Last Taken 08/15/21] methotrexate sodium 2.5 mg tablet 15 mg PO TU LUPUS 06/05/21 [History Last Taken 01/16/22] sertraline 100 mg tablet 150 mg PO DAILY depression 06/05/21 [History Last Taken 08/16/21] famotidine 40 mg tablet 40 mg PO BID gerd 07/31/21 [History Last Taken 08/17/21] [id number]-[id number]-oapeiue 24,000-76,000-120,000 unit capsule,delayed rel (Creon) 2 cap PO TID STOMACH 08/17/21 [History Last Taken 4 Days Ago ~08/13/21] folic acid 1 mg tablet 1 mg PO BREAKFAST #30 tabs 01/27/22 [Rx Last Taken Unknown] thiamine HCl (vitamin B1) 100 mg tablet (Vitamin B-1) 100 mg PO DAILYCM #30 tabs 01/27/22 [Rx Last Taken Unknown] omeprazole 40 mg capsule,delayed release 40 mg PO DAILY #30 caps 05/02/22 [Rx Last Taken Unknown] ondansetron 4 mg disintegrating tablet 4 mg PO Q8H PRN nausea and vomiting #10 tabs 05/02/22 [Rx Last Taken Unknown] sucralfate 100 mg/mL oral suspension (Carafate) 1 g (10 mL) PO TID 2 weeks #400 mL 05/02/22 [Rx Last Taken Unknown] ondansetron 4 mg disintegrating tablet 4 mg PO Q8H PRN nausea and vomiting #14 tabs 05/31/22 [Rx Last Taken Unknown] sucralfate 100 mg/mL oral suspension (Carafate) 10 ml PO BID PRN epgastric pain #400 mL 05/31/22 [Rx Last Taken Unknown] ondansetron 4 mg disintegrating tablet 4 mg PO Q8H PRN PRN Nausea 3 days #10 tabs 09/12/22 [Rx Last Taken Unknown] Allergy/AdvReac Type Severity Reaction Status Date / Time metoclopramide HCl Allergy anxious, Verified 09/18/23 17:14 [From Reglan] hives peanut Allergy Anaphylaxis Verified 09/18/23 17:14 Sulfa (Sulfonamide Allergy Hives Verified 09/18/23 17:14 Antibiotics) prednisone AdvReac psychosis Verified 09/18/23 17:14 prochlorperazine AdvReac anxious Verified 09/18/23 17:14 [From Compazine] Family History Father Diabetes CAD (coronary artery disease) Melanoma Mother Rheumatoid arthritis Melanoma Other Multiple sclerosis Surgical History H/O cervical spine surgery H/O knee surgery History of cholecystectomy History of hysterectomy S/P appendectomy Social History household members: none housing: apartment Smoking Status: Never smoker alcohol intake: current alcohol intake frequency: 3 or more drinks per day Alcohol type: hard liquor details: Patient reports only recently 2 n[employer]olas[employer] hard lemonades, last at midnight. substance use type: does not use ROS ROS ED Constitutional Constitutional ED: Denies chills or fever(s) Eyes Eyes: Denies blurry vision or change in vision ENT ENT ED: Denies rhinorrhea or sore throat Cardiovascular Cardiovascular: Denies chest pain or palpitations Respiratory/Chest Respiratory/Chest: Denies cough or dyspnea Gastrointestinal Gastrointestinal: Reports nausea and vomiting Genitourinary Genitourinary ED: Denies dysuria or hematuria Musculoskeletal Musculoskeletal: Denies back pain or neck pain Integumentary Denies abscess or rash Neurologic Neurologic: Denies headache(s) or weakness Allergic/Immunologic Allergic/Immunologic ED: Denies mouth swelling or urticaria EXAM Physical Exam Const Vital Signs: 09/18/23 17:15 Temperature 96.8 F L Temperature Source Temporal Pulse Rate 116 H Respiratory Rate 16 Blood Pressure 109/95 H Blood Pressure Mean 99 Pulse Ox 98 Oxygen Delivery Method Room Air Positive well nourished and well developed General Appearance ED: well developed and NAD HEENT Reports moist mucous membranes Neck full ROM and supple Extremity Extremity Narrative: There is tenderness, edema, and ecchymosis over the anterior aspect of the left lower leg. There is mild tenderness over the left ankle. There is no tenderness over the fifth metatarsal. There is no obvious deformity noted. Range of motion was limited in all motions of the left ankle and lower leg secondary to pain. Sensation was intact to light touch in all digits. Capillary refill was less than 2 seconds in all digits. Pedal pulses are equal bilaterally. Neuro oriented x3, CN's II-XII intact bilaterally, moves all extremities and no sensory deficits noted Sensorium / Orientation: alert Motor Exam: strength 5/5 throughout Psych mental status grossly normal Skin no wounds MDM MDM MDM Narrative Medical decision making narrative: Differential diagnosis includes sprain, fracture, and contusion. X-rays of the left tibia and fibula will be obtained to assess for fracture. X-rays of the left ankle will be obtained to assess for fracture and dislocation. Radiography Diagnostic Testing: Clinical Impression(s) from Imaging Studies Ankle X-Ray 09/18/23 18:08 IMPRESSION: Negative left ankle x-rays. Electronically Signed: Suleman Mart MD at 18:47 EST , Tibia/Fibula X-Ray 09/18/23 18:08 IMPRESSION: Negative left tibia and fibula x-rays. Electronically Signed: Suleman Mart MD at 18:46 EST , X-rays of the left ankle were obtained. There are 4 views. On my independent interpretation, there is no acute fracture. There is no dislocation noted. There is no soft tissue swelling noted. Radiologist also interpreted the x-rays and agrees. X-rays of the left tibia and fibula were obtained. There are 2 views. On my independent interpretation, there is no acute fracture or dislocation noted. There is no soft tissue swelling noted. Radiologist also interpreted the x-rays and agrees. Treatment and Re-Evaluation Narrative: Patient was given a dose of [place] here. Patient was advised of her findings. Patient was given a walking boot. Patient was instructed to ice and elevate the left leg and ankle. Patient was instructed to continue with Tylenol and ibuprofen as needed for pain. Patient understood and was agreeable with the plan. Patient was instructed to follow-up with her primary care physician in 5 to 7 days. All questions were answered. Discharge Plan Triage Chief Complaint: Lower Extremity Injury ED Provider: Darnell Giles Dx/Rx/DC Orders Clinical Impression: Fall, Contusion of left lower leg, initial encounter, Left ankle sprain Instructions: ED Soft Tissue Contusion, ED Ankle Sprain (Adult) Prescriptions: No Action hydroxychloroquine 200 MG tablet 200 mg PO BID pantoprazole [Protonix] 40 mg Tablet,Delayed Release (Dr/Ec) 40 mg PO BID atorvastatin 20 MG tablet 20 mg PO QHS sertraline 100 mg Tablet 150 mg PO DAILY methotrexate sodium 2.5 mg Tablet 15 mg PO TU ergocalciferol (vitamin D2) 1,250 mcg (50,000 unit) Capsule 1,250 mcg PO WE famotidine 40 mg tablet 40 mg PO BID Patient Comments: take 1 tablet by mouth twice a day Creon 24,000-76,000 -120,000 unit capsule,delayed release(DR/EC) 2 cap PO TID Patient Comments: take 2 capsules by mouth three times a day thiamine HCl (vitamin B1) [Vitamin B-1] 100 mg Tablet 100 mg PO DAILYCM Qty: 30 0RF folic acid 1 mg Tablet 1 mg PO BREAKFAST Qty: 30 2RF omeprazole 40 mg capsule,delayed release(DR/EC) 40 mg PO DAILY Qty: 30 0RF sucralfate [Carafate] 100 mg/mL suspension 1 g PO TID 14 Days Qty: 400 0RF ondansetron 4 mg tablet,disintegrating 4 mg PO Q8H PRN (Reason: nausea and vomiting) Qty: 10 0RF sucralfate [Carafate] 100 mg/mL suspension 10 ml PO BID PRN (Reason: epgastric pain) Qty: 400 0RF ondansetron 4 mg tablet,disintegrating 4 mg PO Q8H PRN (Reason: nausea and vomiting) Qty: 14 0RF ondansetron 4 mg tablet,disintegrating 4 mg PO Q8H PRN PRN (Reason: Nausea) 3 Days Qty: 10 0RF Primary Care Provider: Diana Garcia Referrals: Diana Garcia MD [Primary Care Provider] - 5-7 Days Disposition Disposition: Home, Self Care
--- NOTE | 2023-09-18 18:08 | RAD_ITS ---
EXAM: XR LEFT ANKLE COMPLETE, 3 OR MORE VIEWS CLINICAL INDICATION: Injury/Pain TECHNIQUE: Frontal, lateral and oblique views of the left ankle. COMPARISON: No relevant prior studies available. FINDINGS: BONES/JOINTS: Unremarkable. No acute fracture. No subluxation. Normal alignment. Preservation of the joint space. No sclerotic or destructive changes observed. SOFT TISSUES: Unremarkable. No soft tissue swelling or gas. No radiopaque foreign body. RAD/Ankle min 3 Views IMPRESSION: Negative left ankle x-rays. Electronically Signed: Suleman Mart MD at 18:47 EST ,
--- NOTE | 2023-09-18 18:08 | RAD_ITS ---
EXAM: XR LEFT TIBIA AND FIBULA, 2 VIEWS CLINICAL INDICATION: Injury/Pain TECHNIQUE: Frontal and lateral views of the left tibia and fibula. COMPARISON: No relevant prior studies available. FINDINGS: BONES/JOINTS: Unremarkable. No acute fracture. No subluxation. Normal alignment. Preservation of the joint space. No sclerotic or destructive changes observed. SOFT TISSUES: Unremarkable. No soft tissue swelling or gas. No radiopaque foreign body. RAD/Tibia & Fibula 2 Views IMPRESSION: Negative left tibia and fibula x-rays. Electronically Signed: Suleman Mart MD at 18:46 EST Reading Location ID and State: [facility] / [place] , Service support ,
== END 2023-09-18 20:00 | disposition home or self-care (01) ==
PROVIDERS: Emergency Provider Emergency Medicine; PCP Internal Medicine; Visit Provider Emergency Medicine
DX: S80.12XA Contusion of left lower leg, initial encounter (principal); I25.10 Atherosclerotic heart disease of native coronary artery without angina pectoris; I10 Essential (primary) hypertension; S93.402A Sprain of unspecified ligament of left ankle, initial encounter; W10.9XXA Fall (on) (from) unspecified stairs and steps, initial encounter
CPT/HCPCS: 73590; 73610; 99284; A4216